=== PATIENT | male | born 1945 | race Caucasian/White ===

== ENCOUNTER 2022-11-24 01:21 | Emergency (ER) | payer OTHER, SELFPAY ==
[2022-11-24 01:25] VITALS: BP 154/100; PULSE 85; RESP 20; TEMP 36.8; O2SAT 95
--- NOTE | 2022-11-24 01:30 | DI.CT_ITS ---
Exam(s) CT HEAD WO EXAM: CT HEAD WO CLINICAL HISTORY: fall, on Eliquis. TECHNIQUE: Imaging Protocol: Axial computed tomography images with coronal and sagittal reformatted images were created and reviewed COMPARISON: CT HEAD WITHOUT CONTRAST from 01/05/2013 FINDINGS: Ventricles and Extra axial spaces: Normal in size and morphology for the patient's age. Hemorrhage: None. Cerebral parenchyma: There is no evidence of an acute territorial infarct. There are areas of decrea sed attenuation in the white matter most consistent with small vessel ischemic disease. Midline shift: None. Brainstem/Cerebellum: Normal. Calvarium: Normal. Visualized Paranasal sinuses/Mastoids: Clear. Soft Tissues: Unremarkable. IMPRESSION: No acute intracranial process. RADIATION DOSE DELIVERED: 739.61mGy.cm Total DLP DATA REPOSITORY: All CT scans at this facility are submitted to the National Radiology Data Registry (NRDR) Dose Index Registry (DIR) with the [employer] (ACR). RADIATION OPTIMIZATION: All CT scans at this facility use at least one of these dose optimization te chniques: automated exposure control; mA and/or kV adjustment per patient size (includes targeted exa ms where dose is matched to clinical indication); or iterative reconstruction.
--- NOTE | 2022-11-24 01:45 | W.ED.GENAD ---
Discharge Plan Disposition Patient Disposition: Home Condition: Good Discharge Details Clinical Impression: Fall Primary Care Provider: [facility] ED Provider: Markus Ludwig [place] Meds and New Rx's Prescriptions: No Action lisinopril 10 MG tablet 10 mg PO DAILY venlafaxine [Effexor XR] 75 MG capsule,extended release 24hr 225 mg PO DAILY tamsulosin 0.4 MG capsule 0.4 mg PO HS zolpidem 10 MG tablet 10 mg PO HS trazodone 100 MG tablet 100 mg HS oxycodone 5 MG tablet 5 mg PO DAILY methylphenidate HCl [Ritalin] 20 MG tablet 20 mg PO DAILY terazosin 2 MG capsule 2 mg PO HS valacyclovir 1,000 MG tablet 1,000 mg PO TID Qty: 21 0RF Rx Instructions: 1000 mg p.o. 3 times daily ?7 days Discharge Instructions Instructions: Fall Prevention for Older Adults (ED) HPI General Date/Time Provider Initiated Documentation: 11/24/22 01:35. HPI Narrative: 76 year old male with hx of HTN, HLD, on Eliquis for ?AF, presents to the ED after falling from a chair. he denies any head injury or LOC. No cp/sob/palpitations. Pt states tetanus within 5 years. Related Data Home Medications Medication Instructions Recorded Confirmed lisinopril 10 mg tablet 10 mg PO DAILY 10/19/12 06/05/17 tamsulosin 0.4 mg capsule 0.4 mg PO HS 10/19/12 06/05/17 venlafaxine 75 mg capsule,extended 225 mg PO DAILY 10/19/12 06/05/17 release 24 hr (Effexor XR) zolpidem 10 mg tablet 10 mg PO HS 10/19/12 06/05/17 trazodone 100 mg tablet 100 mg HS 08/09/13 06/05/17 oxycodone 5 mg tablet 5 mg PO DAILY 08/03/15 06/05/17 methylphenidate HCl 20 mg tablet 20 mg PO DAILY 09/03/16 06/05/17 (Ritalin) terazosin 2 mg capsule 2 mg PO HS 09/03/16 06/05/17 valacyclovir 1 gram tablet 1,000 mg PO TID ##21 06/05/17 Previous Rx's Medication Instructions Recorded valacyclovir 1 gram tablet 1,000 mg PO TID ##21 06/05/17 Allergies Allergy/AdvReac Type Severity Reaction Status Date / Time morphine AdvReac Unknown Psychosis Unverified 06/05/17 13:56 General Stated Complaint: Fall/Non TraumaCriteria HAROLDO: 4 Review of Systems Narrative: CONST: no fever or chills HEENT: no sore throat SKIN: no rashes PULM: no sob, no cough CARD: no cp, no palpitations ABD: no abd pain EXTR: no swelling NEURO: No focal weakness PFSH All Active Problems (Updated 11/24/22 @ 03:06 by Markus Ludwig MD) Fall (Acute) Social History Smoking/Tobacco Use Status: Current every day Smoking risk assessment performed?: Yes Alcohol Intake: never Drug use: Never Do you feel safe at home: Yes Do you feel safe in your relationship?: Yes Exam Narrative Exam Narrative: Const: well appearing, no acute distress HEENT: normocephalic, atraumatic; MMM Lungs: CTA, no wheezing or rales Heart: RRR Abd: soft, NT/ND Ext: well perfused Neuro: non-focal Skin: no rashes. R forearm with 2 small skin tears, each about 1-2 cm in size. Course PT with fall from chair, head CT neg. Will dc home, f/u with pcp as needed. Skin tears to arm just needs wound care and f/u. Vital Signs Vital signs: Vital Signs Temperature 36.8 C 11/24/22 01:25 Pulse 85 11/24/22 01:25 Respiratory Rate 20 11/24/22 01:25 Blood Pressure 154/100 H 11/24/22 01:25 Pulse Oximetry 95 11/24/22 01:25 Temperature 36.8 C 11/24/22 01:25 Temperature Source Oral 11/24/22 01:25 Pulse 85 11/24/22 01:25 Respiratory Rate 20 11/24/22 01:25 Respiratory Effort Normal, Non-Labored 11/24/22 01:37 Blood Pressure 154/100 H 11/24/22 01:25 Blood Pressure Position Sitting 11/24/22 01:25 Pulse Oximetry 95 11/24/22 01:25 Oxygen Delivery Method Room Air 11/24/22 01:25 Oxygen Flow Rate 0 11/24/22 01:25 Pain Level 10 11/24/22 01:25 Comment Chronic back pain 11/24/22 01:25
--- NOTE | 2022-11-24 03:01 | DI.VRAD_ITS ---
PROCEDURE INFORMATION: Exam: CT Head Without Contrast Exam date and time: 11/24/2022 1:51 AM Age: 76 years old Clinical indication: Injury or trauma; Other: Fall, on eliquis TECHNIQUE: Imaging protocol: Computed tomography of the head without contrast. COMPARISON: No relevant prior studies available. FINDINGS: Brain: No intracranial hemorrhage. Mild scattered white matter hypoattenuation. No midline shift. Cerebral ventricles: No ventriculomegaly. Paranasal sinuses: Visualized sinuses are unremarkable. No fluid levels. Mastoid air cells: Visualized mastoid air cells are well aerated. Bones/joints: Unremarkable. No acute fracture. Soft tissues: Unremarkable. Vasculature: Distal carotid and vertebral arterial calcifications noted. IMPRESSION: Negative for intracranial hemorrhage or other acute intracranial abnormality. Dictated and Authenticated by: Don Greco MD. Ordering:JEWELL Aparicio MD
== END 2022-11-24 03:20 | disposition home or self-care (01) ==
PROVIDERS: Emergency Provider Emergency Medicine
DX: Z71.1 Person with feared health complaint in whom no diagnosis is made (principal); W19.XXXA Unspecified fall, initial encounter
CPT/HCPCS: 99284; 70450; 99283

== ENCOUNTER 2022-12-27 03:43 | Emergency (ER) | payer OTHER, SELFPAY ==
[2022-12-27] VITALS (58 sets, daily range): BP systolic 138–152; BP diastolic 74–96; PULSE 64–102; RESP 10–27; TEMP 36.6; O2SAT 77–100
--- NOTE | 2022-12-27 03:30 | RT.EKG_ITS ---
APPROVED REPORT Exam: Resting ECG Reason for Exam: Fall Patient Location: E HR:86 bpm ECG Measurements Heart Rate 86 AXIS MS [id number] P [id number] QRSd 91 QRS 31 QT 370 T 39 QTc 444 Conclusion Atrial fibrillation...V-rate 72-105, irreg A-activity Anterior infarct, old...Q >40mS, abnormal ST-T, V2-V5
--- NOTE | 2022-12-27 03:48 | ED.GENADUL_ITS ---
Discharge Plan Disposition Patient Disposition: Home Condition: Improving Discharge Details Clinical Impression: Head contusion Primary Care Provider: Unknown,Unknown ED Provider: Gagandeep Newton Meds and New Rx's Prescriptions: Continued lisinopril 10 MG tablet 10 mg PO DAILY venlafaxine [Effexor XR] 75 MG capsule,extended release 24hr 225 mg PO DAILY tamsulosin 0.4 MG capsule 0.4 mg PO HS zolpidem 10 MG tablet 10 mg PO HS trazodone 100 MG tablet 100 mg HS oxycodone 5 MG tablet 5 mg PO DAILY methylphenidate HCl [Ritalin] 20 MG tablet 20 mg PO DAILY terazosin 2 MG capsule 2 mg PO HS valacyclovir 1,000 MG tablet 1,000 mg PO TID Qty: 21 0RF Rx Instructions: 1000 mg p.o. 3 times daily ?7 days Discharge Instructions Instructions: Contusion in Adults (ED) Discharge Data Discharge Physician: Gagandeep Newton Medical Decision Making MDM: Summary: Patient tripped and fell sustaining trauma to his head who takes Eliquis for atrial fibrillation who tripped and fell sustaining trauma to his head, labs were done and unremarkable CT scan of the head and cervical spine were negative he is able to ambulate and will be discharged home. Data Review Analysis All the data on this patient was reviewed by me including laboratory and imaging studies as well as bedside studies performed by me Independent review of Studies CT scan of the cervical spine and head are negative Lab: Risk Stratification: Patient on Eliquis with a negative CT head with no acute ambulate and will be discharged Differential Diagnosis: 1. Head contusion 2. Intracranial bleed 3. 4. 5. Consultants: Shared disposition: Patient will be discharged home with his he has an [facility] Impression: Medical Records Medical records reviewed: Yes I reviewed the patient's medical records. Lab Data Lab results reviewed: Yes I reviewed the patient's lab results. ECG Data Attestation: I personally reviewed and interpreted this ECG (s) as follows: Prior ECG tracings: available for review Interpretation: Heart rate 72 atrial fibrillation no acute [address]-T changes HPI General Date/Time Provider Initiated Documentation: 12/27/22 03:47 . HPI Narrative: Patient presents emergency department he had 2 he got up to go to the bathroom and fell sustaining trauma to his head. He came by ambulance with cervical collar immobilization. Denies any neck pain and denies any loss of consciousness but he does take apixaban for atrial fibrillation. Related Data Home Medications Medication Instructions Recorded Confirmed lisinopril 10 mg tablet 10 mg PO DAILY 10/19/12 06/05/17 tamsulosin 0.4 mg capsule 0.4 mg PO HS 10/19/12 06/05/17 venlafaxine 75 mg capsule,extended 225 mg PO DAILY 10/19/12 06/05/17 release 24 hr (Effexor XR) zolpidem 10 mg tablet 10 mg PO HS 10/19/12 06/05/17 trazodone 100 mg tablet 100 mg HS 08/09/13 06/05/17 oxycodone 5 mg tablet 5 mg PO DAILY 08/03/15 06/05/17 methylphenidate HCl 20 mg tablet 20 mg PO DAILY 09/03/16 06/05/17 (Ritalin) terazosin 2 mg capsule 2 mg PO HS 09/03/16 06/05/17 valacyclovir 1 gram tablet 1,000 mg PO TID ##21 06/05/17 Previous Rx's Medication Instructions Recorded valacyclovir 1 gram tablet 1,000 mg PO TID ##21 06/05/17 Allergies Allergy/AdvReac Type Severity Reaction Status Date / Time morphine AdvReac Unknown Psychosis Unverified 06/05/17 13:56 General HAROLDO: 4 Review of Systems Narrative: review of Systems: Constitutional: No fevers, chills, sweats Eye: No recent visual problems ENT: No ear pain, nasal congestion, sore throat Respiratory: No shortness of breath, cough Cardiovascular: No Chest pain, palpitations, syncope Gastrointestinal: No nausea, vomiting, diarrhea Genitourinary: No hematuria Reza/Lymph: Negative for bruising tendency, swollen lymph glands Endocrine: Negative for excessive thirst, excessive hunger Musculoskeletal: No back pain, neck pain, joint pain, muscle pain, decreased range of motion Integumentary: No rash, pruritus, abrasions Neurologic: Alert & oriented X 4 Psychiatric: No anxiety, depression PFSH All Active Problems (Updated 12/27/22 @ 05:50 by Gagandeep Newton MD) Head contusion (Acute) Social History Smoking/Tobacco Use Status: Current every day Smoking risk assessment performed?: Yes Alcohol Intake: never Drug use: Never Housing: house Do you feel safe at home: Yes Do you feel safe in your relationship?: Yes Exam Narrative Exam Narrative: Exam; vitals signs as reported above Constitutional; In no acute distress, afebrile General: cooperative, healthy appearing, comfortable and no acute distress HEENT: Head: normal to inspection, no palpable skull fracture and normocephalic Eyes: l: appearance normal, both eyes and all related structures ]Pupils: PERRL EOM: EOM intact bilaterally Direct ophthalmoscopy: normal light reflex, normal conjunctiva, normal visual acuity Neck no JVD, supple Neck: normal visual inspection, full ROM and no lymphadenopathy Chest Chest: normal inspection of the chest Respiratory : normal respiratory effort and able to speak in complete sentences Cardio irregularly irregular rate and rhythm normal heart sounds S1 and S2 no murmurs, gallops, or rubs GI Inspection: normal to inspection, normal bowel sounds, soft, non tender, non distended, no organomegally Back/Spine/ no CVA tenderness Thoracic/Lumbar Spine: no tenderness or deformities Skin no rashes or lesions Neuro: patient alert and no meningeal signs, Cranial Nerves: CN's II-XI intact bilaterally, Cognition: normal cognition, Speech: speech normal, Gait: normal gait, Depp tendon reflexes normal 2+ Extremities, no edema, full range of motion, normal strength : normal with phimosis
--- NOTE | 2022-12-27 03:49 | DI.CT_ITS ---
Exam(s) CT HEAD CERVICAL SPINE WO EXAM: CT HEAD CERVICAL SPINE WO CLINICAL HISTORY: trauma. TECHNIQUE: Imaging Protocol: Axial computed tomography images with coronal and sagittal reformatted images were created and reviewed COMPARISON: CT CT HEAD WO from 11/24/2022 FINDINGS: BRAIN: Motion artifact. There is a high left scalp hematoma. No subjacent fracture. There are no skull fractures nor fluid in the visualized paranasal sinuses. There is no evidence of intracranial hemorrhage, mass effect, or shift of midline structures. There are no extra-axial fluid collections. The ventricles are not enlarged or shifted and there is no blo od within the ventricular system nor within the basal cisterns. Periventricular hypodensity consistent with chronic small vessel disease again noted. CERVICAL SPINE: There is no evidence of fracture nor listhesis. No significant prevertebral soft tissue swelling. Multilevel chronic disc space narrowing. Mild degenerative changes in the facet joints. There is no significant facet joint malalignment. No significant osseous lesions evident. IMPRESSION: No acute intracranial findings on this noninfused CT scan of the brain. No evidence of cervical spine fracture, malalignment, nor acute compromise of the cervical spinal can al. Chronic degenerative disc disease-multifocal. RADIATION DOSE DELIVERED: 1,562.25mGy.cm Total DLP DATA REPOSITORY: All CT scans at this facility are submitted to the National Radiology Data Registry (NRDR) Dose Index Registry (DIR) with the [employer] (ACR). RADIATION OPTIMIZATION: All CT scans at this facility use at least one of these dose optimization te chniques: automated exposure control; mA and/or kV adjustment per patient size (includes targeted exa ms where dose is matched to clinical indication); or iterative reconstruction.
[2022-12-27 04:02] LABS: Abs Immature Grans 0.03 10^3/uL (0.0-0.06); Absolute Basophil Count 0.05 10^3/uL (0.0-0.2); Absolute Lymphocyte Count 2.05 10^3/uL (1.2-3.4); Absolute Monocyte Count 0.54 10^3/uL (0.1-0.8); Absolute Neutrophil Count 3.55 10^3/uL (1.2-6.7); Basophils % 0.8; HCT 30.9 % (40.0-50.0); HGB 10.2 g/dL (13.5-17.5); Immature Grans % 0.5; MCH 30.9 pg (27.0-33.0); MCV 94 fL (80-95); MPV 8.4 fL (8.0-11.0); Monocytes % 8.2; Neutrophils % 53.5; Platelet Count 223 10^3/uL (130-400); RDW 13.7 % (11.8-14.1); RDW-SD 46.6 fL; WBC 6.62 10^3/uL (4.4-10.8)
[2022-12-27 04:22] LABS: ALT 22 U/L (16-63); AST 26 U/L (15-37); Albumin 2.3 g/dL (3.4-5.0); Alkaline Phosphatase 100 U/L (46-116); Anion Gap 7.8 mmol/L (3-11); BUN 3 mg/dL (7-18); Bilirubin, Total 0.4 mg/dL (0.2-1.0); CO2 26.2 mmol/L (21.0-32.0); CREATININE 0.8 mg/dL (0.70-1.30); Calcium 7.9 mg/dL (8.5-10.1); Chloride 97 mmol/L (98-107); Estimated GFR 91.72 (mL/min/1.73m2); Glucose 93 mg/dL (74-106); Magnesium 1.4 mg/dL (1.8-2.4); Potassium 3.3 mmol/L (3.5-5.1); Sodium 131 mmol/L (136-145); Troponin I < 50 ng/L (<or=60)
[2022-12-27 04:32] LABS: Bilirubin Negative (Negative); Blood Negative (Negative); Clarity Clear (Clear); Glucose Negative (Negative); Ketones Negative (Negative); Leukocyte Esterase Trace (Negative); Nitrite Negative (Negative); Specific Gravity <= 1.005 (1.005-1.025); Urobilinogen 0.2 mg/dL (Up to 0.2)
[2022-12-27 04:46] LABS: Bacteria Rare HPF (Negative); C & S Indicated? Yes; Crystals Negative HPF (Negative); Epithelial Cells Rare HPF (Negative); Mucus Negative (Negative); RBC 0-2 HPF (0-2)
--- NOTE | 2022-12-27 04:56 | DI.VRAD_ITS ---
PROCEDURE INFORMATION: Exam: CT Head Without Contrast Exam date and time: 12/27/2022 4:32 AM Age: 77 years old Clinical indication: Injury or trauma; Fall; Blunt trauma (contusions or hematomas); Consciousness not specified TECHNIQUE: Imaging protocol: Computed tomography of the head without contrast. COMPARISON: CT HEAD WO 11/24/2022 1:51 AM FINDINGS: Brain: No acute intracranial hemorrhage, mass-effect, midline shift, or extra-axial collection is seen. There is patchy white matter hypoattenuation, nonspecific but commonly seen as a chronic sequela of small vessel ischemic disease. The rodas white matter differentiation appears preserved. There is symmetric parenchymal volume loss. Cerebral ventricles: The ventricular system and basilar cisterns appear appropriate in size and configuration. Paranasal sinuses: The paranasal sinuses appear well-aerated. Mastoid air cells: The mastoid air cells appear well-aerated. Auditory system: The middle ear cavities appear clear. Orbital cavities: The globes and intraorbital structures appear grossly intact. Bones/joints: The bony calvarium appears intact. No depressed skull fracture is seen. Soft tissues: There is a small left frontal scalp contusion. Vasculature: There is atherosclerotic calcification within the intracranial portion of the left vertebral artery and bilateral internal carotid arteries. IMPRESSION: 1. No acute intracranial hemorrhage or depressed skull fracture. 2. Presumed chronic microvascular ischemic change. 3. Symmetric parenchymal volume loss. PROCEDURE INFORMATION: Exam: CT Cervical Spine Without Contrast Exam date and time: 12/27/2022 4:32 AM Age: 77 years old Clinical indication: Injury or trauma; Fall; Blunt trauma (contusions or hematomas); Consciousness not specified TECHNIQUE: Imaging protocol: Computed tomography of the cervical spine without contrast. COMPARISON: CT HEAD WO 11/24/2022 1:51 AM FINDINGS: Bones/joints: No acute cervical fracture or gross vertebral malalignment is seen. There is a compression plate with screws transfixing an old left clavicle fracture. C2-C3: Loss of disc height with endplate irregularity. No significant cervical stenosis. Mild bilateral foraminal narrowing. C3-C4: Disc height relatively preserved. Mild central canal narrowing. Mild bilateral foraminal narrowing. C4-C5: C4-C5. Disc height preserved. Mild posterior osteophytic ridging with bilateral uncovertebral hypertrophy. No significant cervical stenosis. Moderate-severe bilateral foraminal narrowing. C5-C6: Loss of disc height with endplate irregularity and anterior osteophytes. Uncovertebral hypertrophy on the left. No significant central canal narrowing. Mild right-sided foraminal narrowing. Moderate left-sided foraminal narrowing. C6-C7: Loss of disc height with anterior osteophyte formation and posterior osteophytic ridging. No significant central canal narrowing. Moderate bilateral foraminal narrowing. C7-T1: Loss of disc height with endplate irregularity, anterior osteophyte formation, and posterior osteophytic ridging. No significant central canal narrowing. Moderate bilateral foraminal narrowing. Thyroid: The thyroid gland appears normal in size. Lungs: There is emphysema at the lung apices. Mild smooth thickening of the interlobular pulmonary septa at the lung apices suggests probable the mild interstitial pulmonary edema or volume overload. Vasculature: There is atherosclerotic calcification at the carotid bifurcations bilaterally. Soft tissues: Within the limits of the exam, no gross soft tissue fluid collection is seen in the neck. IMPRESSION: 1. No acute cervical fracture or malalignment is seen. 2. Degenerative changes, as detailed level by level above. Dictated and Authenticated by: Tommie Tirado MD. Ordering:MAURICIO Donis MD
--- NOTE | 2022-12-27 11:09 | NUR.NOTE ---
duplicate order Nursing Note:
== END 2022-12-27 06:03 | disposition home or self-care (01) ==
PROVIDERS: Emergency Provider Emergency Medicine Emergency Medical Services
DX: S00.81XA Abrasion of other part of head, initial encounter (principal); I48.91 Unspecified atrial fibrillation; F17.210 Nicotine dependence, cigarettes, uncomplicated; W01.0XXA Fall on same level from slipping, tripping and stumbling without subsequent striking against object, initial encounter; Y93.01 Activity, walking, marching and hiking; Y92.018 Other place in single-family (private) house as the place of occurrence of the external cause; Y99.9 Unspecified external cause status
CPT/HCPCS: 36415; 80053; 93005; 99284; 70450; 72125; 81003; 81015; 83735; 84484; 85025; 87086; 93010; 99283

== ENCOUNTER 2023-04-21 18:18 | Emergency (ER) | payer OTHER, SELFPAY ==
[2023-04-21 18:21] VITALS: BP 167/78; PULSE 95; RESP 22; TEMP 37.5; O2SAT 98
--- OUTSIDE RECORDS SUMMARY | 2023-04-21 18:46 | XMS_ITS | Continuity of Care Document ---
Author Name Unknown Organization [facility] Address [address] [place] [address] Care Team Providers Care Costumer Assistant Name Role Phone Camelia Phillip MD Primary Care Physician Encounter [facility] NBR [id number] Date(s): 07/08/22 - 07/08/22 [facility] [address] [place], [place] [address] Encounter Diagnosis Head injury(Discharge Diagnosis) - 07/08/22 Chest wall contusion(Discharge Diagnosis) - 07/08/22 Fall at home(Discharge Diagnosis) - 07/08/[address] in unspecified non-institutional (private) residence as the place of occurrence of the external cause(Discharge Diagnosis) - 07/08/22 Discharge Disposition: Home or Self Care Attending Physician: Johan Lerner MD Admitting Physician: Johan Lerner MD Allergies, Adverse Reactions, Alerts Substance Reaction Severity Status morphine Unknown Active fluticasone unknown Unknown Active gabapentin unknown Unknown Active pregabalin unknown Unknown Active oxyCODONE Unknown Unknown Active Assessment and Plan Future Appointments Future Scheduled Tests Radiology* US Abdomen Limited 05/24/22 Functional Status 07/08/22 Other exposure to Infectious Disease Non e Medications Ambien 5 mg =, Oral, every night at bedtime, PRN as needed, 0 Refill(s) Start Date: 04/20/22 Status: Ordered atorvastatin 10 mg oral tablet 10 mg = 1 tab, Oral, Daily, 0 Refill(s) Start Date: 05/11/22 Status: Ordered diclofenac 3% topical gel 1 %, Topical, 0 Refill(s) Start Date: 05/11/22 Status: Ordered Durable Medical Equipment Supply, See instructions, # 1 EA, 0 Refill(s) Start Date: 05/11/22 Status: Ordered Eliquis 5 mg oral tablet 5 mg = 1 tab, Oral, BID, MD appt 05/12/22, # 60 tab, 3 Refill(s), Pharmacy: [facility], 162.56, cm, 04/20/22 16:47:00 EDT, Height/Length Dosing, 79.38, kg, 04/20/22 16:47:00 EDT, Weight Dosing Start Date: 04/26/22 Status: Ordered furosemide 20 mg oral tablet 20 mg = 1 tab, Oral, Daily, # 30 tab, 0 Refill(s) Start Date: 05/11/22 Status: Ordered ipratropium-albuterol CFC free 20 mcg-100 mcg/inh inhalation aerosol 0 Refill(s) Start Date: 05/11/22 Status: Ordered lisinopril 2.5 mg oral tablet 2.5 mg = 1 tab, Oral, Daily, # 30 tab, 0 Refill(s) Start Date: 05/11/22 Status: Ordered metoprolol succinate 50 mg oral capsule, extended release 50 mg = 1 cap, Oral, Daily, # 90 cap, 3 Refill(s), Pharmacy: [facility], 162.56, cm, 04/20/22 16:47:00 EDT, Height/Length Dosing, 79.38, kg, 04/20/22 16:47:00 EDT, Weight Dosing Start Date: 04/26/22 Status: Ordered multivitamin adult, oral tablet 1 Unknown, 0 Refill(s) Start Date: 05/11/22 Status: Ordered nitroglycerin 0.4 mg sublingual tablet 0 Refill(s) Start Date: 04/20/22 Status: Ordered omeprazole 20 mg oral delayed release tablet 20 mg =, Oral, BID, take it 30 minutes before morning meal ., # 180 tab, 3 Refill(s), Pharmacy: [id number], 162.56, cm, 04/20/22 16:47:00 EDT, Height/Length Dosing, 79.38, kg, 04/20/22 16:47:00EDT, Weight Dosing Start Date: 05/19/22 Stop Date: 05/14/23 Status: Ordered oxyCODONE 5 mg oral tablet See Instructions, take 2 tabs by mouth every morning, then take 1 tab in the afternoon, and then 2 tabs every evening for pain, # 150 tab, 0 Refill(s), Pharmacy: [id number], 162.56, cm, 04/20/22 16:47:00 EDT, Height/Length Dosing, 79.38, kg, .. Start Date: 06/25/22 Status: Ordered simvastatin 20 mg oral tablet 20 mg = 1 tab, Oral, every night at bedtime, # 90 tab, 3 Refill(s), Pharmacy: [facility], 162.56, cm, 04/20/22 16:47:00 EDT, Height/Length Dosing, 79.38, kg, 04/20/22 16:47:00EDT, Weight Dosing Start Date: 04/26/22 Status: Ordered terazosin 2 mg =, Daily, 0 Refill(s) Start Date: 04/20/22 Status: Ordered traZODone 50 mg oral tablet 50 mg = 1 tab, Oral, Daily, # 90 tab, 0 Refill(s), Pharmacy: [id number], 162.56, cm, 04/20/2216:47:00 EDT, Height/Length Dosing, 79.38, kg, 04/20/22 16:47:00 EDT, Weight Dosing Start Date: 06/15/22 Status: Ordered venlafaxine 37.5 mg =, 0 Refill(s) Start Date: 04/20/22 Status: Ordered zinc oxide topical ointment 20 %, Topical, 0 Refill(s) Start Date: 05/11/22 Status: Ordered Mental Status 07/08/22 Eye Opening Response [place] Spontaneous ly Best Verbal Response [place] Oriented Best Motor Response [place] Obeys comman ds Gracie Coma Score 15 Problem List Condition Confirmation Course Effective Dates Status H ealth Status Informant Adrenal mass Confirmed Active Anemia Confirmed Active Atrial fibrillation Confirmed Active Benign prostatic hyperplasia Confirmed Active Body mass index 30+ - obesity Confirmed Active Cervical spondylosis Confirmed Active Chronic low back pain Confirmed Active Closed fracture of left orbital floor Confirmed Active Chest wall contusion Confirmed Active Essential hypertension Confirmed Active Fall at home Confirmed Active Gastroesophageal reflux disease Confirmed Active History of operative procedure on knee Confirmed Active Head injury Confirmed Active Insomnia Confirmed Active Lumbago co-occurrent with right-side sciatica Confirmed Active Lumbar spondylosis Confirmed Active Mixed hyperlipidemia Confirmed Active Multiple joint pain Confirmed Active Neck pain Confirmed Active Osteoarthritis of knee Confirmed Active Posttraumatic stress disorder Confirmed Active Prescribed medication regimen behavior finding Confirmed Active Serum albumin below reference range Confirmed Active Smoker Confirmed Active Procedures Procedure Date Related Diagnosis Body Site Status Excision of right adrenal gland 1 Completed 1right adreanal gland removed. Results Laboratory List Name Date Basic Metabolic Panel (BMP) 07/08/22 CBC w/ Diff 07/08/22 Creatine Kinase 07/08/22 PT/ INR 07/08/22 Automated Diff 07/08/22 Most recent to oldest [Reference Range]: 1 WBC [4.8-10.8 K/mcL] 8.2 K/mcL (07/08/22 4:44 PM) RBC [4.20-6.10 Million/mcL] 3.42 Million /mcL *LOW* (07/08/22 4:44 PM) Neutro Auto [42.2-75.2 %] 62.1 % (07/08/22 4:44 PM) Lymph Auto [20.5-51.1 %] 25.4 % (07/08/22 4:44 PM) [place] Auto [1.7-9.3 %] 7.8 % (07/08/22 4:44 PM) Basophil Auto [0.0-0.8 %] 0.7 % (07/08/22 4:44 PM) Prothrombin Time [9.1-10.6 seconds] 11.6 seconds *HI* (07/08/22 4:44 PM) INR [0.9-1.1] 1.2 *HI* (07/08/22 4:44 PM) BUN [8-26 mg/dL] 19 mg/dL (07/08/22 4:44 PM) Glucose Level [74-106 mg/dL] 104 mg/dL (07/08/22 4:44 PM) Potassium Level [3.5-5.1 mmol/L] 4.1 mmo l/L (07/08/22 4:44 PM) Baso Absolute [0.0-0.2 K/mcL] 0.1 K/mcL (07/08/22 4:44 PM) MCV [80.0-99.0 fL] 95.3 fL (07/08/22 4:44 PM) MCHC [32.0-36.0 g/dL] 32.2 g/dL (07/08/22 4:44 PM) Osmolality [275-295 mOsm/kg] 262 mOsm/kg *LOW* (07/08/22 4:44 PM) Sodium Level [134-143 mmol/L] 129 mmol/L *LOW* (07/08/22 4:44 PM) Lymph Absolute [1.2-3.4 K/mcL] 2.1 K/mcL (07/08/22 4:44 PM) Hct [37.0-52.0 %] 32.6 % *LOW* (07/08/22 4:44 PM) Calcium Level [8.9-10.3 mg/dL] 8.5 mg/dL *LOW* (07/08/22 4:44 PM) [place] Absolute [0.1-0.6 K/mcL] 0.6 K/mcL (07/08/22 4:44 PM) MCH [27.0-31.0 pg] 30.7 pg (07/08/22 4:44 PM) Neutro Absolute [1.4-6.5 K/mcL] 5.1 K/mc L (07/08/22 4:44 PM) Hgb [12.0-18.0 g/dL] 10.5 g/dL *LOW* (07/08/22 4:44 PM) MPV [7.4-10.4 fL] 8.4 fL (07/08/22 4:44 PM) Platelets [130-400 K/mcL] 259 K/mcL (07/08/22 4:44 PM) CO2 [22-32 mmol/L] 26 mmol/L (07/08/22 4:44 PM) Eos Absolute [0.0-0.2 K/mcL] 0.3 K/mcL *HI* (07/08/22 4:44 PM) Chloride Level [98-111 mmol/L] 95 mmol/L *LOW* (07/08/22 4:44 PM) RDW-CV [11.5-14.5 %] 14.3 % (07/08/22 4:44 PM) BUN/Creat Ratio [8.0-20.0] 19.6 (07/08/22 4:44 PM) Imm Gran Absolute 0.02 *NA* (07/08/22 4:44 PM) Imm Gran Auto [0.0-0.5 %] 0.2 % (07/08/22 4:44 PM) Creatinine Level [0.61-1.24 mg/dL] 0.97 mg/dL (07/08/22 4:44 PM) Anion Gap [3.0-12.0] 8.0 (07/08/22 4:44 PM) Eos, Auto [0.00-3.00 %] 3.80 % *HI* (07/08/22 4:44 PM) eGFR CKD-EPI [>=60 mL/min/1.73 m2] 81 mL /min/1.73 m2 (07/08/22 4:44 PM) CK [49-397 unit/L] 160 unit/L (07/08/22 4:44 PM) Radiology Reports * Exam Date Time Procedure Performing Provider Status 07/08/22 5:[address] Chest w/ Contrast Samreen Montgomery ; Auth (Verified) Notes: (CT Chest w/ Contrast) Reason For Exam: Trauma CT Chest w/ Contrast PROCEDURE INFORMATION: Exam: CT Chest With Contrast; Diagnostic Exam date and time: 07/08/2022 5:05 PM Age: 76 years old Clinical indication: Injury; Fall; Blunt trauma; Injury date: 07/08/22 TECHNIQUE: Imaging protocol: Diagnostic computed tomography of the chest with contrast. Radiation optimization: All CT scans at this facility use at least one of these dose optimization techniques: automated exposure control; mA and/or kV adjustment per patient size (includes targeted exams where dose is matched to clinical indication); or iterative reconstruction. Contrast material: ISOVUE 370; Contrast volume: 100 ml; Contrast route: INTRAVENOUS (IV); COMPARISON: CT SPINE CERVICAL WO CONTRAST 07/08/2022 4:59 PM FINDINGS: Lungs: No lung contusion. No consolidation. Pleural spaces: No pneumothorax. No pleural effusion. Heart: Heart size within normal limits. Coronary artery and mitral valve annulus calcification. Lymph nodes: No enlarged lymph nodes. Vasculature: Unremarkable. No aortic aneurysm. Bones/joints: No acute fracture. Spinal degenerative changes. Old fractures of the right 7th through 9th lateral ribs. Likely old fracture involving the right acromial region. Prior ORIF left clavicle. Old fractures of the left 4th through 7th anterolateral ribs. Right shoulder joint effusion with right shoulder region soft tissue calcifications. Soft tissues: Unremarkable. IMPRESSION: 1. No acute fracture. 2. Old fractures of the right 7th through 9th lateral ribs. Likely old fracture involving the right acromial region. Prior ORIF left clavicle. Old fractures of the left 4th through 7th anterolateral ribs. 3. Right shoulder joint effusion with right shoulder region soft tissue calcifications. 4. No acute intrathoracic findings. THIS DOCUMENT HAS BEEN ELECTRONICALLY SIGNED BY SRINIVAS GALVAN MD on 07/08/2022 06:18 PM Final Signed by: Srinivas Galvan MD Signed (Electronic Signature): 07/08/2022 6:18 pm * Exam Date Time Procedure Performing Provider Status 07/08/22 5:[address] Abdomen and Pelvis w/ Contrast Samreen Jackson od; Amairani (Verified) Notes: (CT Abdomen and Pelvis w/ Contrast) Reason For Exam: Trauma CT Abdomen and Pelvis w/ Contrast PROCEDURE INFORMATION: Exam: CT Abdomen And Pelvis With Contrast Exam date and time: 07/08/2022 5:05 PM Age: 76 years old Clinical indication: Injury; Fall; Blunt trauma; Injury date: 07/08/22 TECHNIQUE: Imaging protocol: Computed tomography of the abdomen and pelvis with contrast. Radiation optimization: All CT scans at this facility use at least one of these dose optimization techniques: automated exposure control; mA and/or kV adjustment per patient size (includes targeted exams where dose is matched to clinical indication); or iterative reconstruction. Contrast material: 370; Contrast volume: 100 ml; Contrast route: INTRAVENOUS (IV); COMPARISON: MR ABDOMEN WO CONTRAST 02/25/2022 3:08 PM FINDINGS: Liver: Normal. No mass. Gallbladder and bile ducts: Normal. No calcified stones. No ductal dilation. Pancreas: Normal. No ductal dilation. Spleen: Normal. No splenomegaly. Adrenal glands: Likely prior adrenalectomy. Compared to prior MR abdomen dated , no interval change in left adrenal adenoma. Kidneys and ureters: No hydronephrosis. No calcified renal or ureteral stones. No perinephric stranding or perinephric fluid. Stomach and bowel: No generalized ileus or bowel obstruction. Scattered sigmoid the colon diverticuli without evidence of diverticulitis. Appendix: No evidence of appendicitis. Intraperitoneal space: No free air. No significant fluid collection. Vasculature: Unremarkable. No abdominal aortic aneurysm. Lymph nodes: No enlarged lymph nodes. Urinary bladder: Unremarkable as visualized. Reproductive: Unremarkable as visualized. Bones/joints: Spinal degenerative changes. Old right-sided rib fractures. No acute fracture. Soft tissues: Areas of subcutaneous soft tissue edema. IMPRESSION: 1. No acute fracture. 2. No acute intra-abdominal or pelvic process. 3. Scattered sigmoid the colon diverticuli without evidence of diverticulitis. THIS DOCUMENT HAS BEEN ELECTRONICALLY SIGNED BY SRINIVAS GALVAN MD on 07/08/2022 06:25 PM Final Signed by: Srinivas Galvan MD Signed (Electronic Signature): 07/08/2022 6:25 pm * Exam Date Time Procedure Performing Provider Status 07/08/22 5:[address] Maxillofacial w/o Contrast Samreen Montgomery; Amairani (Verified) Notes: (CT Maxillofacial w/o Contrast) Reason For Exam: trauma CT Maxillofacial w/o Contrast PROCEDURE INFORMATION: Exam: CT Maxillofacial Without Contrast Exam date and time: 07/08/2022 4:59 PM Age: 76 years old Clinical indication: Injury or trauma; Fall; Blunt trauma (contusions or hematomas); Injury date: 07/08/22 TECHNIQUE: Imaging protocol: Computed tomography of the face without contrast. Radiation optimization: All CT scans at this facility use at least one of these dose optimization techniques: automated exposure control; mA and/or kV adjustment per patient size (includes targeted exams where dose is matched to clinical indication); or iterative reconstruction. COMPARISON: Prior facial bone CT of 10/19/2021 FINDINGS: Orbital cavities: No acute abnormality. No evidence of orbital emphysema or retrobulbar hemorrhage. Bones/joints: Mildly depressed fracture of the right orbital floor, image 18/87, which is chronic, seen also on the prior CT. No acute fractures seen. Remaining visualized bony structures appear intact. No evidence of acute dislocation. Paranasal sinuses: Visualized paranasal sinuses are clear. No air-fluid levels. Soft tissues: Left periorbital soft tissue swelling. IMPRESSION: 1. No acute facial bone fractures. 2. Old fracture of the right orbital floor. 3. See above for remaining findings. THIS DOCUMENT HAS BEEN ELECTRONICALLY SIGNED BY CRAOLINE MANNING MD on 07/08/2022 05:54 PM Final Signed by: Caroline Manning MD Signed (Electronic Signature): 07/08/2022 5:54 pm * Exam Date Time Procedure Performing Provider Status 07/08/22 5:[address] Spine Cervical w/o Contrast Samreen Montgomery; Auth (Verified) Notes: (CT Spine Cervical w/o Contrast) Reason For Exam: Trauma CT Spine Cervical w/o Contrast PROCEDURE INFORMATION: Exam: CT Cervical Spine Without Contrast Exam date and time: 07/08/2022 4:59 PM Age: 76 years old Clinical indication: Injury or trauma; Fall; Unconscious; Injury date: 07/08/22 TECHNIQUE: Imaging protocol: Computed tomography of the cervical spine without contrast. Radiation optimization: All CT scans at this facility use at least one of these dose optimization techniques: automated exposure control; mA and/or kV adjustment per patient size (includes targeted exams where dose is matched to clinical indication); or iterative reconstruction. COMPARISON: None is available. FINDINGS: Limitations: Streak artifact from metallic hardware. Bones/joints: Metallic hardware in the left clavicle, related to surgical fixation of an old fracture. Multilevel degenerative disc disease, mainly involving the C5-C6 through C7-T1 levels, where there is moderate to severe degenerative disc disease. Degenerative changes at the atlantoaxial articulation. No acute cervical spine fractures visualized. No significant vertebral subluxation. No evidence of acute facet dislocation. Lungs: Moderate emphysema noted in the imaged lung apices. Pleural spaces: No apical pneumothorax seen. Soft tissues: No acute abnormality. Multiple chronic, corticated bony densities in the soft tissues abutting both clavicles, likely related to remote traumatic injury. IMPRESSION: 1. No acute cervical spine fractures. 2. Emphysema incidentally noted. 3. See above for remaining chronic and/or incidental findings. THIS DOCUMENT HAS BEEN ELECTRONICALLY SIGNED BY CAROLINE MANNING MD on 07/08/2022 06:03 PM Final Signed by: Caroline Manning MD Signed (Electronic Signature): 07/08/2022 6:03 pm * Exam Date Time Procedure Performing Provider Status 07/08/22 5:[address] Head w/o Contrast Samreen Montgomery ; Auth (Verified) Notes: (CT Head w/o Contrast) Reason For Exam: Trauma CT Head w/o Contrast PROCEDURE INFORMATION: Exam: CT Head Without Contrast Exam date and time: 07/08/2022 4:59 PM Age: 76 years old Clinical indication: Injury or trauma; Fall; Unconscious; Injury date: 07/08/22 TECHNIQUE: Imaging protocol: Computed tomography of the head without contrast. Radiation optimization: All CT scans at this facility use at least one of these dose optimization techniques: automated exposure control; mA and/or kV adjustment per patient size (includes targeted exams where dose is matched to clinical indication); or iterative reconstruction. COMPARISON: Prior head CT of 10/19/2021 FINDINGS: Brain: Small area of low density in the left frontal white matter, most likely secondary to chronic small vessel ischemic change. No significant acute abnormality identified. No acute hemorrhage seen within the brain. No acute extra-axial fluid collections visualized. No evidence of significant mass effect within the brain. Cerebral ventricles: No evidence of significant hydrocephalus. Paranasal sinuses: Visualized sinuses are clear. No fluid levels. Mastoid air cells: Clear visualized mastoid air cells. Bones/joints: No acute abnormality. No acute fractures. Soft tissues: Left periorbital soft tissue swelling. IMPRESSION: 1. No evidence of acute intracranial injury or fractures. 2. See above for remaining chronic and/or incidental findings. THIS DOCUMENT HAS BEEN ELECTRONICALLY SIGNED BY CAROLINE MANNING MD on 07/08/2022 06:11 PM Final Signed by: Caroline Manning MD Signed (Electronic Signature): 07/08/2022 6:11 pm Vital Signs Most recent to oldest [Reference Range]: 1 Temperature Temporal Artery [36-38 Deg C ] 37 Deg C (07/08/22 3:50 PM) Peripheral Pulse Rate [60-100 bpm] 72 bp m (07/08/22 3:50 PM) Respiratory Rate [12-24 br/min] 16 br/mi n (07/08/22 3:50 PM) Blood Pressure [90-140/60-90 mmHg] 129/7 0mmHg (07/08/22 3:50 PM) Weight Dosing 71.67 kg (07/08/22 4:32 PM) Weight Estimated 71.67 kg (07/08/22 3:50 PM) Height/Length Dosing 165.000 cm (07/08/22 4:32 PM) Height/Length Estimated 165.000 cm (07/08/22 3:50 PM) Social History Social History Type Response Tobacco Current everyday tob acco user Tobacco Use:. 1.5 packs a day per day. Sex Hospital Discharge Instructions Patient Education 07/08/2022 17:13:11 Head Injury, Adult Head Injury, Adult There are many types of head injuries. Head injuries can be as minor as a small bump, or they can be a serious medical issue. More severe head injuries include: ??? A jarring injury to the brain (concussion). ??? A bruise (contusion) of the brain. This means there is bleeding in the brain that can cause swelling. ??? A cracked skull (skull fracture). ??? Bleeding in the brain that collects, clots, and forms a bump (hematoma). After a head injury, most problems occur within the first 24 hours, but side effects may occur up to 7???10 days after the injury. It is important to watch your condition for any changes. You may need to be observed in the emergency department or urgent care, or you may be admitted to the hospital. What are the causes? There are many possible causes of a head injury. Serious head injuries may be caused by car accidents, bicycle or motorcycle accidents, sports injuries, falls, or being struck by an object. What are the symptoms? Symptoms of a head injury include a contusion, bump, or bleeding at the site of the injury. Other physical symptoms may include: ??? Headache. ??? Nausea or vomiting. ??? Dizziness. ??? Blurred or double vision. ??? Being uncomfortable around bright lights or loud noises. ??? Seizures. ??? Feeling tired. ??? Trouble being awakened. ??? Loss of consciousness. Mental or emotional symptoms may include: ??? Irritability. ??? Confusion and memory problems. ??? Poor attention and concentration. ??? Changes in eating or sleeping habits. ??? Anxiety or depression. How is this diagnosed? This condition can usually be diagnosed based on your symptoms, a description of the injury, and a physical exam. You may also have imaging tests done, such as a CT scan or an MRI. How is this treated? Treatment for this condition depends on the severity and type of injury you have. The main goal of treatment is to prevent complications and allow the brain time to heal. Mild head injury If you have a mild head injury, you may be sent home, and treatment may include: ??? Observation. A responsible adult should stay with you for 24 hours after your injury and check on you often. ??? Physical rest. ??? Brain rest. ??? Pain medicines. Severe head injury If you have a severe head injury, treatment may include: ??? Close observation. This includes hospitalization with the following care: ??? Frequent physical exams. ??? Frequent checks of how your brain and nervous system are working (neurological status). ??? Checking your blood pressure and oxygen levels. ??? Medicines to relieve pain, prevent seizures, and decrease brain swelling. ??? Airway protection and breathing support. This may include using a ventilator. ??? Treatments that monitor and manage swelling inside the brain. ??? Brain surgery. This may be needed to: ??? Remove a collection of blood or blood clots. ??? Stop the bleeding. ??? Remove a part of the skull to allow room for the brain to swell. Follow these instructions at home: Activity ??? Rest and avoid activities that are physically hard or tiring. ??? Make sure you get enough sleep. ??? Let your brain rest by limiting activities that require a lot of thought or attention, such as: ??? Watching TV. ??? Playing memory games and puzzles. ??? Job-related work or homework. ??? Working on the computer, using social media, and texting. ??? Avoid activities that could cause another head injury, such as playing sports, until your health care provider approves. Having another head injury, especially before the first one has healed, can be dangerous. ??? Ask your health care provider when it is safe for you to return to your regular activities, including work or school. Ask your health care provider for a [id number]-ic-[id number] plan for gradually returningto activities. ??? Ask your health care provider when you can drive, ride a bicycle, or use heavy machinery. Your ability to react may be slower after a brain injury. Do not do these activities if you are dizzy. Lifestyle ??? Do not drink alcohol until your health care provider approves. Do not use drugs. Alcohol and certain drugs may slow your recovery and can put you at risk of further injury. ??? If it is harder than usual to remember things, write them down. ??? If you are easily distracted, try to do one thing at a time. ??? Talk with family members or close friends when making important decisions. ??? Tell your friends, family, a trusted colleague, and network associate about your injury, symptoms, and restrictions. Have them watch for any new or worsening problems. General instructions ??? Take [id number]-ire-blyishc and prescription medicines only as told by your health care provider. ??? Have someone stay with you for 24 hours after your head injury. This person should watch you for any changes in your symptoms and be ready to seek medical help. ??? Keep all follow-up visits as told by your health care provider. This is important. How is this prevented? Work on improving your balance and strength to avoid falls. ??? Wear a seat belt when you are in a moving vehicle. ??? Wear a helmet when riding a bicycle, skiing, or doing any other sport or activity that has a risk of injury. ??? If you drink alcohol: ??? Limit how much you use to: ??? 0???1 drink a day for non women. ??? 0???2 drinks a day for men. ??? Be aware of how much alcohol is in your drink. In the [place] one drink equals one 12 oz bottle of beer (355 mL), one 5 oz glass of wine (148 mL), or one 1?? oz glass of hard liquor (44 mL). ??? Take safety measures in your home, such as: ??? Removing clutter and tripping hazards from floors and stairways. ??? Using grab bars in bathrooms and handrails by stairs. ??? Placing non-slip mats on floors and in bathtubs. ??? Improving lighting in dim areas. Where to find more information ??? Centers for Disease Control and Prevention: www.cdc.gov Get help right away if: ??? You have: ??? A severe headache that is not helped by medicine. ??? Trouble walking or weakness in your arms and legs. ??? Clear or bloody fluid coming from your nose or ears. ??? Changes in your vision. ??? A seizure. ??? Increased confusion or irritability. ??? Your symptoms get worse. ??? You are sleepier than normal and have trouble staying awake. ??? You lose your balance. ??? Your pupils change size. ??? Your speech is slurred. ??? Your dizziness gets worse. ??? You vomit. These symptoms may represent a serious problem that is an emergency. Do not wait to see if the symptoms will go away. Get medical help right away. Call your local emergency services (911 in the [place] Do not drive yourself to the hospital. Summary ??? Head injuries can be minor, or they can be a serious medical issue requiring immediate attention. ??? Treatment for this condition depends on the severity and type of injury you have. ??? Have someone stay with you for 24 hours after your injury and check on you often. ??? Ask your health care provider when it is safe for you to return to your regular activities, including work or school. ??? Head injury prevention includes wearing a seat belt in a motor vehicle, using a helmet on a bicycle, limiting alcohol use, and taking safety measures in your home. This information is not intended to replace advice given to you by your health care provider. Make sure you discuss any questions you have with your health care provider. Document Revised: 04/18/2020 Document Reviewed: 04/18/2020 [employer] Patient Education ?? 2021 [employer]. 07/08/2022 17:13:07 Fall Prevention in the Home, Adult Fall Prevention in the Home, Adult Falls can cause injuries and can affect people from all age groups. There are many simple things that you can do to make your home safe and to help prevent falls. Ask for help when making these changes, if needed. What actions can I take to prevent falls? General instructions ??? Use good lighting in all rooms. Replace any light bulbs that burn out. ??? Turn on lights if it is dark. Use night-lights. ??? Place frequently used items in mlnh-mo-jfgoj places. Lower the shelves around your home if necessary. ??? Set up furniture so that there are clear paths around it. Avoid moving your furniture around. ??? Remove throw rugs and other tripping hazards from the floor. ??? Avoid walking on wet floors. ??? Fix any uneven floor surfaces. ??? Add color or contrast paint or tape to grab bars and handrails in your home. Place contrasting color strips on the first and last steps of stairways. ??? When you use a stepladder, make sure that it is completely opened and that the sides are firmlylocked. Have someone hold the ladder while you are using it. Do not climb a closed stepladder. ??? Be aware of any and all pets. What can I do in the bathroom? Keep the floor dry. Immediately clean up any water that spills onto the floor. ??? Remove soap buildup in the tub or shower on a regular basis. ??? Use non-skid mats or decals on the floor of the tub or shower. ??? Attach bath mats securely with double-sided, non-slip rug tape. ??? If you need to sit down while you are in the shower, use a plastic, non-slip stool. ??? Install grab bars by the toilet and in the tub and shower. Do not use towel bars as grab bars. What can I do in the bedroom? Make sure that a bedside light is easy to reach. ??? Do not use oversized bedding that drapes onto the floor. ??? Have a firm chair that has side arms to use for getting dressed. What can I do in the kitchen? Clean up any spills right away. ??? If you need to reach for something above you, use a sturdy step stool that has a grab bar. ??? Keep electrical cables out of the way. ??? Do not use floor pu[place] or wax that makes floors slippery. If you must use wax, make sure that it is non-skid floor wax. What can I do in the stairways? Do not leave any items on the stairs. ??? Make sure that you have a light switch at the top of the stairs and the bottom of the stairs. Have them installed if you do not have them. ??? Make sure that there are handrails on both sides of the stairs. Fix handrails that are broken or loose. Make sure that handrails are as long as the stairways. ??? Install non-slip stair treads on all stairs in your home. ??? Avoid having throw rugs at the top or bottom of stairways, or secure the rugs with carpet tape to prevent them from moving. ??? Choose a carpet design that does not hide the edge of steps on the stairway. ??? Check any carpeting to make sure that it is firmly attached to the stairs. Fix any carpet that is loose or worn. What can I do on the outside of my home? Use bright outdoor lighting. ??? Regularly repair the edges of walkways and driveways and fix any cracks. ??? Remove high doorway thresholds. ??? Trim any shrubbery on the main path into your home. ??? Regularly check that handrails are securely fastened and in good repair. Both sides of any steps should have handrails. ??? Install guardrails along the edges of any raised decks or porches. ??? Clear walkways of debris and clutter, including tools and rocks. ??? Have leaves, snow, and ice cleared regularly. ??? Use sand or salt on walkways during winter months. ??? In the garage, clean up any spills right away, including grease or oil spills. What other actions can I take? Wear closed-toe shoes that fit well and support your feet. Wear shoes that have rubber soles orlow heels. ??? Use mobility aids as needed, such as canes, walkers, scooters, and crutches. ??? Review your medicines with your health care provider. Some medicines can cause dizziness or changes in blood pressure, which increase your risk of falling. Talk with your health care provider about other ways that you can decrease your risk of falls. Thismay include working with a physical therapist or marine mammal trainer to improve your strength, balance, and endurance. Where to find more information ??? Centers for Disease Control and Prevention, [place]: https://www.cdc.gov ??? National Ch[employer] on Aging: https://rk2gwrt.basil.nih.gov Contact a health care provider if: ??? You are afraid of falling at home. ??? You feel weak, drowsy, or dizzy at home. ??? You fall at home. Summary ??? There are many simple things that you can do to make your home safe and to help prevent falls. ??? Ways to make your home safe include removing tripping hazards and installing grab bars in the bathroom. ??? Ask for help when making these changes in your home. This information is not intended to replace advice given to you by your health care provider. Make sure you discuss any questions you have with your health care provider. Document Revised: 05/19/2018 Document Reviewed: 01/19/2018 [employer] Patient Education ?? 2020 [employer]. 07/08/2022 17:13:04 Blunt Chest Trauma Blunt Chest Trauma Blunt chest trauma is an injury that is caused by a hard, direct hit to the chest. The hit can be strong enough to injure multiple body parts and organs. Blunt trauma does not involve a puncture of the skin. Blunt chest trauma often results in bruised or broken (fractured) ribs. In many cases, the soft tissue in the chest wall is also injured, and that damage causes pain and bruising. Internal organs, such as the heart and lungs, can be injured as well. Blunt chest trauma can lead to serious medical problems. This injury requires immediate medical care. What are the causes? This condition may be caused by: ??? Motor vehicle collisions. ??? Falls. ??? Physical violence. ??? Sports injuries. What are the signs or symptoms? Symptoms of this condition include: ??? Chest pain. The pain may be worse when you breathe deeply or move. ??? Shortness of breath. ??? Light-headedness. ??? Bruising. ??? Tenderness. ??? Swelling. ??? Feeling as if your heart is racing. How is this diagnosed? This condition is diagnosed based on your medical history and a physical exam. You may also have imaging tests, including: ??? X-ray. ??? CT scan. ??? MRI. ??? Ultrasound. How is this treated? Treatment for this condition depends on your injury type and severity of the injury. You may need to stay in the hospital. Treatment may include: ??? Pain medicine. You may be given pain medicine through an IV at first. You may also be given phem-hia-vjjnvgm and prescription pain medicines. ??? Tubes or other devices, such as an incentive spirometer, to help you breathe. ??? Inserting a tube into your chest to drain excess fluid, blood, or air. ??? Fluid or blood transfusions through an IV. ??? Surgery to repair broken ribs and fix damaged tissue and organs. ??? Lung (pulmonary) rehabilitation. This may include exercises, counseling, or support groups. Follow these instructions at home: Medicines ??? Take vuzm-oef-pujrhgm and prescription medicines only as told by your health care provider. ??? Ask your health care provider if the medicine prescribed to you: ??? Requires you to avoid driving or using machinery. ??? Can cause constipation. You may need to take these actions to prevent or treat constipation: ??? Drink enough fluid to keep your urine pale yellow. ??? Take xsla-zpb-rnnhubb or prescription medicines. ??? Eat foods that are high in fiber, such as beans, whole grains, and fresh fruits and vegetables. ??? Limit foods that are high in fat and processed sugars, such as fried or sweet foods. Managing pain and swelling If directed, put ice on the injured area. To do this: ??? Put ice in a plastic bag. ??? Place a towel between your skin and the bag. ??? Leave the ice on for 20 minutes, 2???3 times a day. ??? Remove the ice if your skin turns bright red. This is very important. If you cannot feel pain, heat, or cold, you have a greater risk of damage to the area. Activity ??? Do not lift anything that is heavier than 10 lb (4.5 kg), or the limit that you are told, untilyour health care provider says that it is safe. ??? Return to your normal activities as told by your health care provider. Ask your health care provider what activities are safe for you. ??? Do exercises as told by your health care provider. General instructions ??? Do not use any products that contain nicotine or tobacco, such as cigarettes, e-cigarettes, andchewing tobacco. These can delay healing. If you need help quitting, ask your health care provider. ??? Use your incentive spirometer as told to help you take deep breaths. ??? Consider joining a support group. This may help you learn about your condition and techniques to help with recovery. ??? Keep all follow-up visits. This is important. Follow-up visits may include counseling. Contact a health care provider if: ??? Your pain gets worse. ??? You develop a cough or wheezing. Get help right away if: ??? You experience any of the following: ??? Shortness of breath. ??? Pain in your abdomen. ??? Nausea or vomiting. ??? A fever or chills. ??? A rapid heart rate. ??? You cough up blood. ??? You feel dizzy or weak. ??? You faint. ??? You have severe chest pain. This may come with other symptoms, such as: ??? Dizziness. ??? Shortness of breath. ??? Pain in your neck, jaw, or back, or in one arm or both arms. These symptoms may represent a serious problem that is an emergency. Do not wait to see if the symptoms will go away. Get medical help right away. Call your local emergency services (911 in the [place] Do not drive yourself to the hospital. Summary ??? Blunt chest trauma is an injury that is caused by a hard, direct hit to the chest. It may involve broken ribs, damage to the chest wall, and injury to internal organs such as the heart and lungs. ??? Blunt chest trauma can lead to serious medical problems. This injury requires immediate medicalcare. ??? Symptoms may include chest pain when moving or taking deep breaths, shortness of breath, bruising or swelling of the chest, faster heartbeat, and light-headedness. ??? Treatment for this condition depends on what type of injury you have and how severe it is. ??? Make sure you know which symptoms should cause you to get help right away. This information is not intended to replace advice given to you by your health care provider. Make sure you discuss any questions you have with your health care provider. Document Revised: 09/10/2020 Document Reviewed: 09/10/2020 [employer] Patient Education ?? 2021 [employer] Follow Up Care 07/08/2022 15:50:30 With:primary care provider Address: When:2 to 4 days Emergency department Discharge instructions * Brittani Sanz MARKER MACHINE: PERFORM Event Display: ED Discharge Information Authored Date: [id number] RED PEGUERO :1945 Age:76 years Sex:Male Visit Date:07/08/2022 Primary Care Physician: Camelia Phillip MD Discharge Instructions We would like to thank you for allowing us to assist you with your healthcare needs. The following includes patient education materials and information regarding your injury/illness. Diagnosis from Today's Visit Head injury Chest wall contusion Fall at home Unspecified place in unspecified non-institutional (private) residence as the place of occurrence of the external cause Discharge Vitals Temperature??(Temporal Artery) 98.6 ??F (37 ??C) Heart Rate??(Peripheral) 72 Respiratory Rate?? 16 Blood Pressure?? 129/70?? Height?? 64.96 in (165.000 cm) Weight??(Estimated) 158.03 lb (71.67 kg) Allergies fluticasone??(unknown) gabapentin??(unknown) morphine oxyCODONE??(Unknown) pregabalin??(unknown) What to Do Next Instructions from Your Care Team Continue your usual medications as previously directed keep your diet light as you may experience some nausea and vomiting You can use acetaminophen 650 mg every 4 hours if needed for headache aches or pains. Make sure you cough and deep breathe splint to your chest wall if needed for the pain Keep your abrasions clean and dry washing daily with warm soapy water can apply bacitracin ointmentand dry dressing such as a Band-Aid to protect Monitor for and report confusion worsening headache chest pain shortness of breath you are leaving prior to the final reads of your cat scans.?? you may have serious injuries we havenot yet identified.?? You Need to Schedule the Following Appointments Follow Up with??primary care provider When:??Within 2 to 4 days Upcoming Scheduled Appointments Tuesday 4:00 PM EST ?? You were treated today on an emergency basis; it may be dillard to contact your primary care provider to notify them of your visit today. You may have been referred to your regular doctor or a specialist, please follow up as instructed. If your condition worsens or you can't get in to see the doctor, contact the Emergency Department. Medications What How Much When Instructions Next Dose Unchanged apixaban (Eliquis 5 mg oral tablet) 1 tab Oral (given by mouth) 2 times a day appt ?? Unchanged atorvastatin (atorvastatin 10 mg oral tablet) 1 tab Oral (given by mouth) Every day Unchanged diclofenac topical (diclofenac 3% topical gel) 1 Percent Topical (on the skin) Unchanged Durable Medical Equipment for Prescription (Durable Medical Equipment) See instructions Unchanged furosemide (furosemide 20 mg oral tablet) 1 tab Oral (given by mouth) Every day Unchanged ipratropium-albuterol (ipratropium-albuterol CFC free 20 mcg-100 mcg/ inh inhalation aerosol) Unchanged lisinopril (lisinopril 2.5 mg oral tablet) 1 tab Oral (given by mouth) Every day Unchanged metoprolol (metoprolol succinate 50 mg oral capsule, extended release) 1 Capsules Oral (given by mouth) Every day Unchanged multivitamin (multivitamin adult, oral tablet) 1 Unknown ?? Unchanged nitroglycerin (nitroglycerin 0.4 mg sublingual tablet) Unchanged omeprazole (omeprazole 20 mg oral delayed release tablet) 20 Milligrams Oral (given by mouth) 2 times a day Duration: 90 Days take it 30 minutes before morning meal . ?? Unchanged oxyCODONE (oxyCODONE 5 mg oral tablet) See instructions take 2 tabs by mouth every morning, then take 1 tab in the afternoon, and then 2 tabs every eveningfor pain ?? Unchanged simvastatin (simvastatin 20 mg oral tablet) 1 tab Oral (given by mouth) Every night at bedtime Unchanged terazosin 2 Milligrams Every day Unchanged traZODone (traZODone 50 mg oral tablet) 1 tab Oral (given by mouth) Every day Unchanged venlafaxine 37.5 Milligrams Unchanged zinc oxide topical (zinc oxide topical ointment) 20 Percent Topical (on the skin) Unchanged zolpidem (Ambien) 5 Milligrams Oral (given by mouth) Every night at bedtime as needed for as needed Education Materials Head Injury, Adult There are many types of head injuries. Head injuries can be as minor as a small bump, or they can be a serious medical issue. More severe head injuries include: ? A jarring injury to the brain (concussion). ? A bruise (contusion) of the brain. This means there is bleeding in the brain that can cause swelling. ? A cracked skull (skull fracture). ? Bleeding in the brain that collects, clots, and forms a bump (hematoma). After a head injury, most problems occur within the first 24 hours, but side effects may occur up to 7???10 days after the injury. It is important to watch your condition for any changes. You may need to be observed in the emergency department or urgent care, or you may be admitted to the hospital. What are the causes? There are many possible causes of a head injury. Serious head injuries may be caused by car accidents, bicycle or motorcycle accidents, sports injuries, falls, or being struck by an object. What are the symptoms? Symptoms of a head injury include a contusion, bump, or bleeding at the site of the injury. Other physical symptoms may include: ? Headache. ? Nausea or vomiting. ? Dizziness. ? Blurred or double vision. ? Being uncomfortable around bright lights or loud noises. ? Seizures. ? Feeling tired. ? Trouble being awakened. ? Loss of consciousness. Mental or emotional symptoms may include: ? Irritability. ? Confusion and memory problems. ? Poor attention and concentration. ? Changes in eating or sleeping habits. ? Anxiety or depression. How is this diagnosed? This condition can usually be diagnosed based on your symptoms, a description of the injury, and a physical exam. You may also have imaging tests done, such as a CT scan or an MRI. How is this treated? Treatment for this condition depends on the severity and type of injury you have. The main goal of treatment is to prevent complications and allow the brain time to heal. Mild head injury If you have a mild head injury, you may be sent home, and treatment may include: ? Observation. A responsible adult should stay with you for 24 hours after your injury and check on you often. ? Physical rest. ? Brain rest. ? Pain medicines. Severe head injury If you have a severe head injury, treatment may include: ? Close observation. This includes hospitalization with the following care: ? Frequent physical exams. ? Frequent checks of how your brain and nervous system are working (neurological status). ? Checking your blood pressure and oxygen levels. ? Medicines to relieve pain, prevent seizures, and decrease brain swelling. ? Airway protection and breathing support. This may include using a ventilator. ? Treatments that monitor and manage swelling inside the brain. ? Brain surgery. This may be needed to: ? Remove a collection of blood or blood clots. ? Stop the bleeding. ? Remove a part of the skull to allow room for the brain to swell. Follow these instructions at home: Activity ? Rest and avoid activities that are physically hard or tiring. ? Make sure you get enough sleep. ? Let your brain rest by limiting activities that require a lot of thought or attention, such as: ? Watching TV. ? Playing memory games and puzzles. ? Job-related work or homework. ? Working on the computer, using social media, and texting. ? Avoid activities that could cause another head injury, such as playing sports, until your health care provider approves. Having another head injury, especially before the first one has healed, can bedangerous. ? Ask your health care provider when it is safe for you to return to your regular activities, including work or school. Ask your health care provider for a hflp-sc-wxvh plan for gradually returning to activities. ? Ask your health care provider when you can drive, ride a bicycle, or use heavy machinery. Your ability to react may be slower after a brain injury. Do not do these activities if you are dizzy. Lifestyle ? Do not drink alcohol until your health care provider approves. Do not use drugs. Alcohol and certain drugs may slow your recovery and can put you at risk of further injury. ? If it is harder than usual to remember things, write them down. ? If you are easily distracted, try to do one thing at a time. ? Talk with family members or close friends when making important decisions. ? Tell your friends, family, a trusted colleague, and network associate about your injury, symptoms, and restrictions. Have them watch for any new or worsening problems. General instructions ? Take vamn-des-zygjvbn and prescription medicines only as told by your health care provider. ? Have someone stay with you for 24 hours after your head injury. This person should watch you for any changes in your symptoms and be ready to seek medical help. ? Keep all follow-up visits as told by your health care provider. This is important. How is this prevented? Work on improving your balance and strength to avoid falls. ? Wear a seat belt when you are in a moving vehicle. ? Wear a helmet when riding a bicycle, skiing, or doing any other sport or activity that has a risk of injury. ? If you drink alcohol: ? Limit how much you use to: ? 0???1 drink a day for non women. ? 0???2 drinks a day for men. ? Be aware of how much alcohol is in your drink. In the [place] one drink equals one 12 oz bottle of beer (355 mL), one 5 oz glass of wine (148 mL), or one 1?? oz glass of hard liquor (44 mL). ? Take safety measures in your home, such as: ? Removing clutter and tripping hazards from floors and stairways. ? Using grab bars in bathrooms and handrails by stairs. ? Placing non-slip mats on floors and in bathtubs. ? Improving lighting in dim areas. Where to find more information ? Centers for Disease Control and Prevention: www.cdc.gov Get help right away if: ? You have: ? A severe headache that is not helped by medicine. ? Trouble walking or weakness in your arms and legs. ? Clear or bloody fluid coming from your nose or ears. ? Changes in your vision. ? A seizure. ? Increased confusion or irritability. ? Your symptoms get worse. ? You are sleepier than normal and have trouble staying awake. ? You lose your balance. ? Your pupils change size. ? Your speech is slurred. ? Your dizziness gets worse. ? You vomit. These symptoms may represent a serious problem that is an emergency. Do not wait to see if the symptoms will go away. Get medical help right away. Call your local emergency services (911 in the [place] Do not drive yourself to the hospital. Summary ? Head injuries can be minor, or they can be a serious medical issue requiring immediate attention. ? Treatment for this condition depends on the severity and type of injury you have. ? Have someone stay with you for 24 hours after your injury and check on you often. ? Ask your health care provider when it is safe for you to return to your regular activities, including work or school. ? Head injury prevention includes wearing a seat belt in a motor vehicle, using a helmet on a bicycle, limiting alcohol use, and taking safety measures in your home. This information is not intended to replace advice given to you by your health care provider. Make sure you discuss any questions you have with your health care provider. Document Revised: 04/18/2020 Document Reviewed: 04/18/2020 [employer] Patient Education ?? [employer] Fall Prevention in the Home, Adult Falls can cause injuries and can affect people from all age groups. There are many simple things that you can do to make your home safe and to help prevent falls. Ask for help when making these changes, if needed. What actions can I take to prevent falls? General instructions ? Use good lighting in all rooms. Replace any light bulbs that burn out. ? Turn on lights if it is dark. Use night-lights. ? Place frequently used items in aqqd-yk-sivps places. Lower the shelves around your home if necessary. ? Set up furniture so that there are clear paths around it. Avoid moving your furniture around. ? Remove throw rugs and other tripping hazards from the floor. ? Avoid walking on wet floors. ? Fix any uneven floor surfaces. ? Add color or contrast paint or tape to grab bars and handrails in your home. Place contrasting color strips on the first and last steps of stairways. ? When you use a stepladder, make sure that it is completely opened and that the sides are firmly locked. Have someone hold the ladder while you are using it. Do not climb a closed stepladder. ? Be aware of any and all pets. What can I do in the bathroom? Keep the floor dry. Immediately clean up any water that spills onto the floor. ? Remove soap buildup in the tub or shower on a regular basis. ? Use non-skid mats or decals on the floor of the tub or shower. ? Attach bath mats securely with double-sided, non-slip rug tape. ? If you need to sit down while you are in the shower, use a plastic, non-slip stool. ? Install grab bars by the toilet and in the tub and shower. Do not use towel bars as grab bars. What can I do in the bedroom? Make sure that a bedside light is easy to reach. ? Do not use oversized bedding that drapes onto the floor. ? Have a firm chair that has side arms to use for getting dressed. What can I do in the kitchen? Clean up any spills right away. ? If you need to reach for something above you, use a sturdy step stool that has a grab bar. ? Keep electrical cables out of the way. ? Do not use floor [place] or wax that makes floors slippery. If you must use wax, make sure that it is non-skid floor wax. What can I do in the stairways? Do not leave any items on the stairs. ? Make sure that you have a light switch at the top of the stairs and the bottom of the stairs. Have them installed if you do not have them. ? Make sure that there are handrails on both sides of the stairs. Fix handrails that are broken or loose. Make sure that handrails are as long as the stairways. ? Install non-slip stair treads on all stairs in your home. ? Avoid having throw rugs at the top or bottom of stairways, or secure the rugs with carpet tape to prevent them from moving. ? Choose a carpet design that does not hide the edge of steps on the stairway. ? Check any carpeting to make sure that it is firmly attached to the stairs. Fix any carpet that is loose or worn. What can I do on the outside of my home? Use bright outdoor lighting. ? Regularly repair the edges of walkways and driveways and fix any cracks. ? Remove high doorway thresholds. ? Trim any shrubbery on the main path into your home. ? Regularly check that handrails are securely fastened and in good repair. Both sides of any steps should have handrails. ? Install guardrails along the edges of any raised decks or porches. ? Clear walkways of debris and clutter, including tools and rocks. ? Have leaves, snow, and ice cleared regularly. ? Use sand or salt on walkways during winter months. ? In the garage, clean up any spills right away, including grease or oil spills. What other actions can I take? Wear closed-toe shoes that fit well and support your feet. Wear shoes that have rubber soles or lowheels. ? Use mobility aids as needed, such as canes, walkers, scooters, and crutches. ? Review your medicines with your health care provider. Some medicines can cause dizziness or changesin blood pressure, which increase your risk of falling. Talk with your health care provider about other ways that you can decrease your risk of falls. Thismay include working with a physical therapist or marine mammal trainer to improve your strength, balance, and endurance. Where to find more information ? Centers for Disease Control and Prevention, [place]: https://www.cdc.gov ? National Ch[place] on Aging: https://ny0mdvc.basil.nih.gov Contact a health care provider if: ? You are afraid of falling at home. ? You feel weak, drowsy, or dizzy at home. ? You fall at home. Summary ? There are many simple things that you can do to make your home safe and to help prevent falls. ? Ways to make your home safe include removing tripping hazards and installing grab bars in the bathroom. ? Ask for help when making these changes in your home. This information is not intended to replace advice given to you by your health care provider. Make sure you discuss any questions you have with your health care provider. Document Revised: 05/19/2018 Document Reviewed: 01/19/2018 Elsevier Patient Education ?? 2020 [employer] Blunt Chest Trauma Blunt chest trauma is an injury that is caused by a hard, direct hit to the chest. The hit can be strong enough to injure multiple body parts and organs. Blunt trauma does not involve a puncture of the skin. Blunt chest trauma often results in bruised or broken (fractured) ribs. In many cases, the soft tissue in the chest wall is also injured, and that damage causes pain and bruising. Internal organs, such as the heart and lungs, can be injured as well. Blunt chest trauma can lead to serious medical problems. This injury requires immediate medical care. What are the causes? This condition may be caused by: ? Motor vehicle collisions. ? Falls. ? Physical violence. ? Sports injuries. What are the signs or symptoms? Symptoms of this condition include: ? Chest pain. The pain may be worse when you breathe deeply or move. ? Shortness of breath. ? Light-headedness. ? Bruising. ? Tenderness. ? Swelling. ? Feeling as if your heart is racing. How is this diagnosed? This condition is diagnosed based on your medical history and a physical exam. You may also have imaging tests, including: ? X-ray. ? CT scan. ? MRI. ? Ultrasound. How is this treated? Treatment for this condition depends on your injury type and severity of the injury. You may need to stay in the hospital. Treatment may include: ? Pain medicine. You may be given pain medicine through an IV at first. You may also be given zegh-cqr-lyhbkjz and prescription pain medicines. ? Tubes or other devices, such as an incentive spirometer, to help you breathe. ? Inserting a tube into your chest to drain excess fluid, blood, or air. ? Fluid or blood transfusions through an IV. ? Surgery to repair broken ribs and fix damaged tissue and organs. ? Lung (pulmonary) rehabilitation. This may include exercises, counseling, or support groups. Follow these instructions at home: Medicines ? Take yrzp-jwo-qahwlgq and prescription medicines only as told by your health care provider. ? Ask your health care provider if the medicine prescribed to you: ? Requires you to avoid driving or using machinery. ? Can cause constipation. You may need to take these actions to prevent or treat constipation: ? Drink enough fluid to keep your urine pale yellow. ? Take ssdt-fkj-mhnmhdm or prescription medicines. ? Eat foods that are high in fiber, such as beans, whole grains, and fresh fruits and vegetables. ? Limit foods that are high in fat and processed sugars, such as fried or sweet foods. Managing pain and swelling If directed, put ice on the injured area. To do this: ? Put ice in a plastic bag. ? Place a towel between your skin and the bag. ? Leave the ice on for 20 minutes, 2???3 times a day. ? Remove the ice if your skin turns bright red. This is very important. If you cannot feel pain, heat, or cold, you have a greater risk of damage to the area. Activity ? Do not lift anything that is heavier than 10 lb (4.5 kg), or the limit that you are told, until your health care provider says that it is safe. ? Return to your normal activities as told by your health care provider. Ask your health care provider what activities are safe for you. ? Do exercises as told by your health care provider. General instructions ? Do not use any products that contain nicotine or tobacco, such as cigarettes, e- cigarettes, and chewing tobacco. These can delay healing. If you need help quitting, ask your health care provider. ? Use your incentive spirometer as told to help you take deep breaths. ? Consider joining a support group. This may help you learn about your condition and techniques to help with recovery. ? Keep all follow-up visits. This is important. Follow-up visits may include counseling. Contact a health care provider if: ? Your pain gets worse. ? You develop a cough or wheezing. Get help right away if: ? You experience any of the following: ? Shortness of breath. ? Pain in your abdomen. ? Nausea or vomiting. ? A fever or chills. ? A rapid heart rate. ? You cough up blood. ? You feel dizzy or weak. ? You faint. ? You have severe chest pain. This may come with other symptoms, such as: ? Dizziness. ? Shortness of breath. ? Pain in your neck, jaw, or back, or in one arm or both arms. These symptoms may represent a serious problem that is an emergency. Do not wait to see if the symptoms will go away. Get medical help right away. Call your local emergency services (911 in the [place] Do not drive yourself to the hospital. Summary ? Blunt chest trauma is an injury that is caused by a hard, direct hit to the chest. It may involve broken ribs, damage to the chest wall, and injury to internal organs such as the heart and lungs. ? Blunt chest trauma can lead to serious medical problems. This injury requires immediate medical care. ? Symptoms may include chest pain when moving or taking deep breaths, shortness of breath, bruising or swelling of the chest, faster heartbeat, and light-headedness. ? Treatment for this condition depends on what type of injury you have and how severe it is. ? Make sure you know which symptoms should cause you to get help right away. This information is not intended to replace advice given to you by your health care provider. Make sure you discuss any questions you have with your health care provider. Document Revised: 09/10/2020 Document Reviewed: 09/10/2020 Elsevier Patient Education ?? 2021 [employer] Tests Performed Radiology CT Head w/o Contrast 07/08/2022 18:[address] Maxillofacial w/o Contrast 07/08/2022 17:[address] Spine Cervical w/o Contrast 07/08/2022 18:03 EST Lab Test Name Test Result Date/Time WBC 8.2 K/mcL 07/08/2022 16:44 EST RBC 3.42 Million/mcL 07/08/2022 16:44 EST Hgb 10.5 g/dL 07/08/2022 16:44 EST Hct 32.6 % 07/08/2022 16:44 EST MCV 95.3 fL 07/08/2022 16:44 EST MCH 30.7 pg 07/08/2022 16:44 EST MCHC 32.2 g/dL 07/08/2022 16:44 EST RDW-CV 14.3 % 07/08/2022 16:44 EST Platelets 259 K/mcL 07/08/2022 16:44 EST MPV 8.4 fL 07/08/2022 16:44 EST Neutro Auto 62.1 % 07/08/2022 16:44 EST Lymph Auto 25.4 % 07/08/2022 16:44 EST [place] Auto 7.8 % 07/08/2022 16:44 EST Eos, Auto 3.80 % 07/08/2022 16:44 EST Basophil Auto 0.7 % 07/08/2022 16:44 EST Imm Gran Auto 0.2 % 07/08/2022 16:44 EST Neutro Absolute 5.1 K/mcL 07/08/2022 16:44 EST Lymph Absolute 2.1 K/mcL 07/08/2022 16:44 EST [place] Absolute 0.6 K/mcL 07/08/2022 16:44 EST Eos Absolute 0.3 K/mcL 07/08/2022 16:44 EST Baso Absolute 0.1 K/mcL 07/08/2022 16:44 EST Imm Gran Absolute 0.02 07/08/2022 16:44 EST Prothrombin Time 11.6 seconds 07/08/2022 16:44 EST INR 1.2 07/08/2022 16:44 EST Sodium Level 129 mmol/L 07/08/2022 16:44 EST Potassium Level 4.1 mmol/L 07/08/2022 16:44 EST Chloride Level 95 mmol/L 07/08/2022 16:44 EST CO2 26 mmol/L 07/08/2022 16:44 EST BUN 19 mg/dL 07/08/2022 16:44 EST Glucose Level 104 mg/dL 07/08/2022 16:44 EST Creatinine Level 0.97 mg/dL 07/08/2022 16:44 EST BUN/Creat Ratio 19.6 07/08/2022 16:44 EST Calcium Level 8.5 mg/dL 07/08/2022 16:44 EST Anion Gap 8.0 07/08/2022 16:44 EST Osmolality 262 mOsm/kg 07/08/2022 16:44 EST eGFR CKD-EPI 81 mL/min/1.73 m2 07/08/2022 16:44 EST Patient/Boat Deckhand Signature Patient Name:RED PEGUERO I have received this information and my questions have been answered. Patient/Boat Deckhand Name: Patient/Boat Deckhand Signature: Relationship to Patient: Witness Name/Signature: Date: Electronically Signed on: 07/08/2022 18:15 ESTSigned by:[facility] Maxillofacial region WO contrast * Caroline Manning MD: VERIFY, VERIFY Event Display: Report PROCEDURE INFORMATION: Exam: CT Maxillofacial Without Contrast Exam date and time: 07/08/2022 4:59 PM Age: 76 years old Clinical indication: Injury or trauma; Fall; Blunt trauma (contusions or hematomas); Injury date: 07/08/22 TECHNIQUE: Imaging protocol: Computed tomography of the face without contrast. Radiation optimization: All CT scans at this facility use at least one of these dose optimization techniques: automated exposure control; mA and/or kV adjustment per patient size (includes targeted exams where dose is matched to clinical indication); or iterative reconstruction. COMPARISON: Prior facial bone CT of 10/19/2021 FINDINGS: Orbital cavities: No acute abnormality. No evidence of orbital emphysema or retrobulbar hemorrhage. Bones/joints: Mildly depressed fracture of the right orbital floor, image 18/87, which is chronic, seen also on the prior CT. No acute fractures seen. Remaining visualized bony structures appear intact. No evidence of acute dislocation. Paranasal sinuses: Visualized paranasal sinuses are clear. No air-fluid levels. Soft tissues: Left periorbital soft tissue swelling. IMPRESSION: 1. No acute facial bone fractures. 2. Old fracture of the right orbital floor. 3. See above for remaining findings. THIS DOCUMENT HAS BEEN ELECTRONICALLY SIGNED BY CAROLINE MANNING MD on 07/08/2022 05:54 PM Final Signed by: Caroline Manning MD Signed (Electronic Signature): 07/08/2022 5:[address] Cervical spine WO contrast * Caroline Manning MD: VERIFY, VERIFY Event Display: Report PROCEDURE INFORMATION: Exam: CT Cervical Spine Without Contrast Exam date and time: 07/08/2022 4:59 PM Age: 76 years old Clinical indication: Injury or trauma; Fall; Unconscious; Injury date: 07/08/22 TECHNIQUE: Imaging protocol: Computed tomography of the cervical spine without contrast. Radiation optimization: All CT scans at this facility use at least one of these dose optimization techniques: automated exposure control; mA and/or kV adjustment per patient size (includes targeted exams where dose is matched to clinical indication); or iterative reconstruction. COMPARISON: None is available. FINDINGS: Limitations: Streak artifact from metallic hardware. Bones/joints: Metallic hardware in the left clavicle, related to surgical fixation of an old fracture. Multilevel degenerative disc disease, mainly involving the C5-C6 through C7-T1 levels, where there is moderate to severe degenerative disc disease. Degenerative changes at the atlantoaxial articulation. No acute cervical spine fractures visualized. No significant vertebral subluxation. No evidence of acute facet dislocation. Lungs: Moderate emphysema noted in the imaged lung apices. Pleural spaces: No apical pneumothorax seen. Soft tissues: No acute abnormality. Multiple chronic, corticated bony densities in the soft tissues abutting both clavicles, likely related to remote traumatic injury. IMPRESSION: 1. No acute cervical spine fractures. 2. Emphysema incidentally noted. 3. See above for remaining chronic and/or incidental findings. THIS DOCUMENT HAS BEEN ELECTRONICALLY SIGNED BY CAROLINE MANNING MD on 07/08/2022 06:03 PM Final Signed by: Caroline Manning MD Signed (Electronic Signature): 07/08/2022 6:[address] Head WO contrast * Caroline Manning MD: VERIFY, VERIFY Event Display: Report PROCEDURE INFORMATION: Exam: CT Head Without Contrast Exam date and time: 07/08/2022 4:59 PM Age: 76 years old Clinical indication: Injury or trauma; Fall; Unconscious; Injury date: 07/08/22 TECHNIQUE: Imaging protocol: Computed tomography of the head without contrast. Radiation optimization: All CT scans at this facility use at least one of these dose optimization techniques: automated exposure control; mA and/or kV adjustment per patient size (includes targeted exams where dose is matched to clinical indication); or iterative reconstruction. COMPARISON: Prior head CT of 10/19/2021 FINDINGS: Brain: Small area of low density in the left frontal white matter, most likely secondary to chronic small vessel ischemic change. No significant acute abnormality identified. No acute hemorrhage seen within the brain. No acute extra-axial fluid collections visualized. No evidence of significant mass effect within the brain. Cerebral ventricles: No evidence of significant hydrocephalus. Paranasal sinuses: Visualized sinuses are clear. No fluid levels. Mastoid air cells: Clear visualized mastoid air cells. Bones/joints: No acute abnormality. No acute fractures. Soft tissues: Left periorbital soft tissue swelling. IMPRESSION: 1. No evidence of acute intracranial injury or fractures. 2. See above for remaining chronic and/or incidental findings. THIS DOCUMENT HAS BEEN ELECTRONICALLY SIGNED BY CAROLINE MANNING MD on 07/08/2022 06:11 PM Final Signed by: Caroline Manning MD Signed (Electronic Signature): 07/08/2022 6:[address] Chest W contrast IV * Srinivas Galvan MD: VERIFY, VERIFY Event Display: Report PROCEDURE INFORMATION: Exam: CT Chest With Contrast; Diagnostic Exam date and time: 07/08/2022 5:05 PM Age: 76 years old Clinical indication: Injury; Fall; Blunt trauma; Injury date: 07/08/22 TECHNIQUE: Imaging protocol: Diagnostic computed tomography of the chest with contrast. Radiation optimization: All CT scans at this facility use at least one of these dose optimization techniques: automated exposure control; mA and/or kV adjustment per patient size (includes targeted exams where dose is matched to clinical indication); or iterative reconstruction. Contrast material: ISOVUE 370; Contrast volume: 100 ml; Contrast route: INTRAVENOUS (IV); COMPARISON: CT SPINE CERVICAL WO CONTRAST 07/08/2022 4:59 PM FINDINGS: Lungs: No lung contusion. No consolidation. Pleural spaces: No pneumothorax. No pleural effusion. Heart: Heart size within normal limits. Coronary artery and mitral valve annulus calcification. Lymph nodes: No enlarged lymph nodes. Vasculature: Unremarkable. No aortic aneurysm. Bones/joints: No acute fracture. Spinal degenerative changes. Old fractures of the right 7th through 9th lateral ribs. Likely old fracture involving the right acromial region. Prior ORIF left clavicle. Old fractures of the left 4th through 7th anterolateral ribs. Right shoulder joint effusion with right shoulder region soft tissue calcifications. Soft tissues: Unremarkable. IMPRESSION: 1. No acute fracture. 2. Old fractures of the right 7th through 9th lateral ribs. Likely old fracture involving the right acromial region. Prior ORIF left clavicle. Old fractures of the left 4th through 7th anterolateral ribs. 3. Right shoulder joint effusion with right shoulder region soft tissue calcifications. 4. No acute intrathoracic findings. THIS DOCUMENT HAS BEEN ELECTRONICALLY SIGNED BY SRINIVAS GALVAN MD on 07/08/2022 06:18 PM Final Signed by: Srinivas Galvan MD Signed (Electronic Signature): 07/08/2022 6:[address] Abdomen and Pelvis W contrast IV * Srinivas Galvan MD: VERIFY, VERIFY Event Display: Report PROCEDURE INFORMATION: Exam: CT Abdomen And Pelvis With Contrast Exam date and time: 07/08/2022 5:05 PM Age: 76 years old Clinical indication: Injury; Fall; Blunt trauma; Injury date: 07/08/22 TECHNIQUE: Imaging protocol: Computed tomography of the abdomen and pelvis with contrast. Radiation optimization: All CT scans at this facility use at least one of these dose optimization techniques: automated exposure control; mA and/or kV adjustment per patient size (includes targeted exams where dose is matched to clinical indication); or iterative reconstruction. Contrast material: 370; Contrast volume: 100 ml; Contrast route: INTRAVENOUS (IV); COMPARISON: MR ABDOMEN WO CONTRAST 02/25/2022 3:08 PM FINDINGS: Liver: Normal. No mass. Gallbladder and bile ducts: Normal. No calcified stones. No ductal dilation. Pancreas: Normal. No ductal dilation. Spleen: Normal. No splenomegaly. Adrenal glands: Likely prior adrenalectomy. Compared to prior MR abdomen dated , no interval change in left adrenal adenoma. Kidneys and ureters: No hydronephrosis. No calcified renal or ureteral stones. No perinephric stranding or perinephric fluid. Stomach and bowel: No generalized ileus or bowel obstruction. Scattered sigmoid the colon diverticuli without evidence of diverticulitis. Appendix: No evidence of appendicitis. Intraperitoneal space: No free air. No significant fluid collection. Vasculature: Unremarkable. No abdominal aortic aneurysm. Lymph nodes: No enlarged lymph nodes. Urinary bladder: Unremarkable as visualized. Reproductive: Unremarkable as visualized. Bones/joints: Spinal degenerative changes. Old right-sided rib fractures. No acute fracture. Soft tissues: Areas of subcutaneous soft tissue edema. IMPRESSION: 1. No acute fracture. 2. No acute intra-abdominal or pelvic process. 3. Scattered sigmoid the colon diverticuli without evidence of diverticulitis. THIS DOCUMENT HAS BEEN ELECTRONICALLY SIGNED BY SRINIVAS GALVAN MD on 07/08/2022 06:25 PM Final Signed by: Srinivas Galvan MD Signed (Electronic Signature): 07/08/2022 6:25 pm Patient Care team information Personnel Name: Camelia Phillip MD Address: Address: [address] [place] [address]
--- OUTSIDE RECORDS SUMMARY | 2023-04-21 18:46 | XMS_ITS | Continuity of Care Document ---
Author Name Unknown Organization [facility] Ambulatory Clinics Address [address] [place] [address] Care Team Providers Care Airworthiness Safety Inspector Name Role Phone Delvis Dinero DO Primary Care Physician [phone] Encounter [facility] NBR [id number] Date(s): 12/01/22 - 12/01/22 [facility] Ambulatory Clinics [address] [place] [address] [place] Discharge Disposition: Home Allergies, Adverse Reactions, Alerts Substance Reaction Severity Status morphine Unknown Active fluticasone unknown Unknown Active gabapentin unknown Unknown Active pregabalin unknown Unknown Active oxyCODONE Unknown Unknown Active Assessment and Plan Future Scheduled Tests Laboratory* Comprehensive Metabolic Panel 09/14/22 * Lipid Panel 09/14/22 Radiology* US Abdomen Limited 05/24/22 Medications Albuterol (Eqv-ProAir HFA) 90 mcg/inh inhalation aerosol 2 puffs, Inhale, QID, PRN Air Hunger, # 8.5 g, 11 Refill(s), Pharmacy: [facility] #93, 165, cm, 07/08/22 16:32:00 EST, Height/Length Dosing, 71.67, kg, 07/08/22 16:32:00 EST, Weight Dosing Start Date: 12/01/22 Status: Ordered Ambien 5 mg oral tablet 5 mg =, Oral, every night at bedtime, PRN as needed, # 30 tab, 5 Refill(s), Pharmacy: [facility] #93, 165, cm, 07/08/22 16:32:00 EST, Height/Length Dosing, 71.67, kg, 07/08/22 16:32:00 EST, Weight Dosing Start Date: 12/01/22 Status: Ordered diclofenac 1% topical gel 4 g, Topical, QID, PRN pain, # 100 g, 11 Refill(s), Pharmacy: [facility] #[facility], 165, cm, 07/08/22 16:32:00 EST, Height/Length Dosing, 71.67, kg, 07/08/22 16:32:00 EST, Weight Dosing Start Date: 12/01/22 Status: Ordered Eliquis 5 mg oral tablet 5 mg = 1 tab, Oral, BID, # 180 tab, 3 Refill(s), Pharmacy: [facility] #[facility], 165, cm, 07/08/22 16:32:00 EST, Height/Length Dosing, 71.67, kg, 07/08/22 16:32:00 EST, Weight Dosing Start Date: 12/01/22 Status: Ordered ipratropium-albuterol CFC free 20 mcg-100 mcg/inh inhalation aerosol 0 Refill(s) Start Date: 05/11/22 Status: Ordered lisinopril 20 mg oral tablet 20 mg = 1 tab, Oral, Daily, # 90 tab, 3 Refill(s), Pharmacy: [facility] #93, 165, cm, 07/08/22 16:32:00 EST, Height/Length Dosing, 71.67, kg, 07/08/22 16:32:00 EST, Weight Dosing Start Date: 12/01/22 Status: Ordered metoprolol succinate 25 mg oral tablet, extended release 25 mg = 1 tab, Oral, Daily, # 90 tab, 3 Refill(s), Pharmacy: [facility] #93, 165, cm, 07/08/22 16:32:00 EST, Height/Length Dosing, 71.67, kg, 07/08/22 16:32:00 EST, Weight Dosing Start Date: 12/01/22 Status: Ordered multivitamin adult, oral tablet 1 Unknown, 0 Refill(s) Start Date: 05/11/22 Status: Ordered nitroglycerin 0.4 mg sublingual tablet 0 Refill(s) Start Date: 04/20/22 Status: Ordered omeprazole 20 mg oral delayed release capsule 20 mg = 1 cap, Oral, Daily, # 90 cap, 3 Refill(s), Pharmacy: [facility] #93, 165, cm, 07/08/22 16:32:00 EST, Height/Length Dosing, 71.67, kg, 07/08/22 16:32:00 EST, Weight Dosing Start Date: 12/01/22 Status: Ordered oxyCODONE 5 mg oral tablet See Instructions, PRN as needed for pain, Take 2 tablets in the AM, 1 tablet in the afternoon, 2 tablets in the evening orally three times a day. 30 days, # 150 tab, 0 Refill(s) Start Date: 11/26/22 Status: Ordered simvastatin 20 mg oral tablet 20 mg = 1 tab, Oral, every night at bedtime, # 90 tab, 5 Refill(s), Pharmacy: [facility] #[facility], 165, cm, 07/08/22 16:32:00 EST, Height/Length Dosing, 71.67, kg, 07/08/22 16:32:00 EST, Weight Dosing Start Date: 12/01/22 Status: Ordered Stiolto Respimat 2.5 mcg-2.5 mcg/inh inhalation aerosol 2 puffs, Inhale, every 24 hr, # 4 g, 11 Refill(s), Pharmacy: [facility] #93, 165, cm, 07/08/22 16:32:00 EST, Height/Length Dosing, 71.67, kg, 07/08/22 16:32:00 EST, Weight Dosing Start Date: 12/01/22 Status: Ordered terazosin 2 mg oral capsule 2 mg =, Oral, Daily, # 90 cap, 3 Refill(s), Pharmacy: [facility], 165, cm, 07/08/22 16:32:00 EST, Height/Length Dosing, 71.67, kg, 07/08/22 16:32:00 EST, Weight Dosing Start Date: 09/24/22 Stop Date: 09/19/23 Status: Ordered traZODone 100 mg oral tablet 100 mg = 1 tab, Oral, every night at bedtime, # 90 tab, 3 Refill(s), Pharmacy: [facility] #93, 165, cm, 07/08/22 16:32:00 EST, Height/Length Dosing, 71.67, kg, 07/08/22 16:32:00 EST, Weight Dosing Start Date: 12/01/22 Status: Ordered venlafaxine 37.5 mg oral capsule, extended release 37.5 mg =, Oral, Daily, # 90 cap, 3 Refill(s), Pharmacy: [facility] #93, 165, cm, 07/08/22 16:32:00 EST, Height/Length Dosing, 71.67, kg, 07/08/22 16:32:00 EST, Weight Dosing Start Date: 12/01/22 Status: Ordered zinc oxide topical ointment 20 %, Topical, 0 Refill(s) Start Date: 05/11/22 Status: Ordered Problem List Condition Confirmation Course Effective Dates Status H ealth Status Informant Adrenal mass Confirmed Active ETOH abuse Confirmed Active Anemia Confirmed Active Atrial fibrillation Confirmed Active ADHD Confirmed Active Body mass index 30+ - obesity Confirmed Active Brachial plexus lesion Confirmed Active Bursitis Confirmed Active Cervical spondylosis Confirmed Active Chronic low back pain Confirmed Active Closed fracture of left orbital floor Confirmed Active Fall at home Confirmed Active Gastroesophageal reflux disease Confirmed Active History of operative procedure on knee Confirmed Active Hyperlipidemia Confirmed Active Hypertension Confirmed Active Head injury Confirmed Active Insomnia Confirmed Active Long-term current use of anticoagulant Confirmed Active Lower urinary tract symptoms due to benign prostatic hypertrophy Confirmed Active Lumbago co-occurrent with right-side sciatica Confirmed Active Lumbar spondylosis Confirmed Active Monoplegia Confirmed Active Multiple joint pain Confirmed Active Neck pain Confirmed Active Opioid abuse Confirmed Active Osteoarthritis of knee Confirmed Active Posttraumatic stress disorder Confirmed Active Prescribed medication regimen behavior finding Confirmed Active Serum albumin below reference range Confirmed Active Smoker Confirmed Active Type 2 diabetes mellitus Confirmed Active Procedures Procedure Date Related Diagnosis Body Site Status Excision of right adrenal gland 1 Completed 1right adreanal gland removed. Social History Social History Type Response Tobacco Current everyday tob acco user Tobacco Use:. 1.5 packs a day per day. Sex Patient Care team information Care Team Personnel Name: Delvis Dinero DO Position: Physician Member Role: Primary Care Physician Address: Address: [address] [place] [address] [place] Care Team Related Persons Name: ALEJANDRO PEGUERO Armaan Address: Home [address] [place], [place] [id number] [facility]
--- OUTSIDE RECORDS SUMMARY | 2023-04-21 18:46 | XMS_ITS | Continuity of Care Document ---
Author Name Unknown Organization [facility] Ambulatory Clinics Address [address] [place] [address] Care Team Providers Care Flatwork Finisher Name Role Phone Delvis Dinero DO Primary Care Physician [phone] Encounter [facility] NBR [id number] Date(s): 09/24/22 - 09/24/22 [facility] Ambulatory Clinics [address] [place] [address] [place] Discharge Disposition: Home Allergies, Adverse Reactions, Alerts Substance Reaction Severity Status morphine Unknown Active fluticasone unknown Unknown Active gabapentin unknown Unknown Active pregabalin unknown Unknown Active oxyCODONE Unknown Unknown Active Assessment and Plan Future Scheduled Tests Laboratory* Comprehensive Metabolic Panel 09/14/22 * Lipid Panel 09/14/22 Radiology* US Abdomen Limited 05/24/22 Medications Ambien 5 mg =, Oral, every [...] mg = 1 tab, Oral, BID, # 60 tab, 3 Refill(s), Pharmacy: [facility], 165, cm, 07/08/22 16:32:00 EST, Height/Length Dosing, 71.67, kg, 07/08/22 16:32:00 EST, Weight Dosing Start Date: 08/16/22 Status: Ordered furosemide 20 mg oral tablet 20 mg = 1 tab, Oral, Daily, # 30 tab, 0 Refill(s) Start Date: 05/11/22 Status: Ordered ipratropium-albuterol CFC free 20 mcg-100 mcg/inh inhalation aerosol 0 Refill(s) Start Date: 05/11/22 Status: Ordered lisinopril 2.5 mg oral tablet 2.5 mg = 1 tab, Oral, Daily, # 90 tab, 3 Refill(s), Pharmacy: [facility], 165, cm, 07/08/22 16:32:00 EST, Height/Length Dosing, 71.67, kg, 07/08/22 16:32:00 EST, Weight Dosing Start Date: 09/24/22 Stop Date: 09/19/23 Status: Ordered metoprolol succinate 50 mg oral capsule, extended release 50 mg = 1 cap, Oral, Daily, # 90 cap, 3 Refill(s), Pharmacy: [facility], 162.56, cm, 04/20/22 16:47:00 EDT, [...] ., # 180 tab, 3 Refill(s), Pharmacy: [facility], 165, cm, 07/08/22 16:32:00 EST, Height/Length Dosing, 71.67, kg, 07/08/22 16:32:00 EST, Weight Dosing Start Date: 09/24/22 Stop Date: 09/19/23 Status: Ordered oxyCODONE 5 mg oral tablet See Instructions, PRN as needed for pain, take 2 tabs by mouth every morning, then take 1 tab in the afternoon, and then 2 tabs every evening for pain, # 150 tab, 0 Refill(s), Pharmacy: [facility], 165, cm, 07/08/22 16:32:00 EST, Height/Length D... Start Date: 09/14/22 Status: Ordered simvastatin 20 mg oral tablet 20 mg = 1 tab, Oral, every night at bedtime, # 90 tab, 3 Refill(s), Pharmacy: [facility], 162.56, cm, 04/20/22 16:47:00 EDT, Height/Length Dosing, 79.38, kg, 04/20/22 16:47:00EDT, Weight Dosing Start Date: 04/26/22 Status: Ordered terazosin 2 mg oral capsule 2 mg =, Oral, Daily, # 90 cap, 3 Refill(s), Pharmacy: [facility], 165, cm, 07/08/22 16:32:00 EST, Height/Length Dosing, 71.67, kg, 07/08/22 16:32:00 EST, Weight Dosing Start Date: 09/24/22 Stop Date: 09/19/23 Status: Ordered traZODone 50 mg oral tablet 50 mg = 1 tab, Oral, Daily, # 90 tab, 0 Refill(s), Pharmacy: [facility] #93, 162.56, cm, 04/20/2216:47:00 EDT, Height/Length [...] Member Role: Primary Care Physician Address: Address: [address] [place] [phone] [place] Care Team Related Persons Name: ALEJANDRO PEGUERO Address: Home [address] [place], [place] [id number] [facility]
--- OUTSIDE RECORDS SUMMARY | 2023-04-21 18:46 | XMS_ITS | Continuity of Care Document ---
Author Name Unknown Organization [facility] Ambulatory Clinics Address [address] [place] [address] Care Team Providers Care Fans Clerk Name Role Phone Delvis Dinero DO Primary Care Physician Encounter [facility] NBR [id number] Date(s): 12/01/22 - 12/01/22 [facility] Ambulatory Clinics [address] [place], [place] [address] Discharge Disposition: Home or Self Care Attending Physician: Bren Campbell MD Referring Physician: Bren Campbell MD Allergies, Adverse Reactions, Alerts Substance Reaction Severity Status morphine Unknown Active fluticasone unknown Unknown Active gabapentin unknown Unknown Active pregabalin unknown Unknown Active oxyCODONE Unknown Unknown Active Assessment and Plan Future Scheduled Tests Laboratory* Comprehensive Metabolic Panel 09/14/22 * Lipid Panel 09/14/22 Radiology* US Abdomen Limited 05/24/22 Functional Status 12/01/22 Other exposure to Infectious Disease Non e Medications Albuterol (Eqv-ProAir HFA) 90 mcg/inh inhalation aerosol 2 puffs, Inhale, QID, PRN Air Hunger, # 8.5 g, 11 Refill(s), Pharmacy: [facility] #93, 165, cm, 07/08/22 16:32:00 EST, Height/Length Dosing, 71.67, kg, 07/08/22 16:32:00 EST, Weight Dosing Start Date: 12/01/22 Status: Ordered Ambien 5 mg oral tablet 5 mg =, Oral, every night at bedtime, PRN as needed, # 30 tab, 5 Refill(s), Pharmacy: [facility] #93, 165, cm, 07/08/22 16:32:00 EST, [...] bedtime, # 90 tab, 5 Refill(s), Pharmacy: [facility] #93, 165, cm, 07/08/22 16:32:00 EST, Height/Length Dosing, 71.67, kg, 07/08/22 16:32:00 EST, Weight Dosing Start Date: 12/01/22 Status: Ordered Stiolto Respimat 2.5 mcg-2.5 mcg/inh inhalation aerosol 2 puffs, Inhale, every 24 hr, # 4 g, 11 Refill(s), Pharmacy: [facility] #93, 165, cm, 07/08/22 16:32:00 EST, Height/Length Dosing, 71.67, kg, 07/08/22 16:32:00 EST, Weight Dosing Start Date: 12/01/22 Status: Ordered terazosin 2 mg oral capsule 2 mg =, Oral, Daily, # 90 cap, 3 Refill(s), Pharmacy: [facility], 165, cm, 07/08/22 16:32:00 EST, Height/Length Dosing, 71.67, kg, 07/08/22 16:32:00 EST, Weight Dosing Start Date: 09/24/22 Stop Date: 09/19/23 Status: Ordered traZODone 100 mg oral tablet 100 mg = 1 tab, Oral, every night at bedtime, # 90 tab, 3 Refill(s), Pharmacy: [facility] #93, 165, cm, 07/08/22 16:32:00 EST, Height/Length Dosing, 71.67, kg, 07/08/22 16:32:00 EST, Weight Dosing Start Date: 12/01/22 Status: Ordered venlafaxine 37.5 mg oral capsule, extended release 37.5 mg =, Oral, Daily, # 90 cap, 3 Refill(s), Pharmacy: [facility] #93, 165, cm, 07/08/22 16:32:00 EST, Height/Length [...] gland 1 Completed 1right adreanal gland removed. Vital Signs Most recent to oldest [Reference Range]: 1 Peripheral Pulse Rate [60-100 bpm] 76 bp m (12/01/22 12:55 PM) Blood Pressure [90-140/60-90 mmHg] 142/7 2mmHg *HI* (12/01/22 12:55 PM) Weight 73 kg (12/01/22 12:55 PM) Weight Measured (lbs) 160.937 lb (12/01/22 12:55 PM) Social History Social History Type Response Tobacco Current everyday tob acco user Tobacco Use:. 1.5 packs a day per day. Sex Physician Outpatient Note * Bren Campbell MD: PERFORM Event Display: Office Clinic Note Physician Authored Date: [id number] RED PEGUERO :1945 Age:77 years Sex:Male Visit Date:12/01/2022 Primary Care Physician: Delvis Dinero DO Chief Complaint medication follow up and broken ribs [facility] History of Present Illness ??Festus is a??77 year old White male who was seen at [facility] ED 11/21/22 after??he??lost his??balance??taking a step up to his shed and landed on a plywood platform injuing his right chestwall and right arm. He was found to have fractured his ribs. He is here for FU. He says the pain has lessened. We discussed his medications, labs,??diagnostics, and below mentioned active problems.?? Review of Systems Constitutional: He denies fever, chills, fatigue or unusual weight loss. Cardiovascular: ??He denies chest pain, palpitations or syncopal episodes.?? Respiratory: ??No dyspnea, no cough productive of phlegm, no orthopnea or hemoptysis. Gastrointestinal: ??No nausea, vomiting, diarrhea, or abdominal pain. No blood in his stool. Urologic: ??No urgency, dysuria, blood in his urine, or kidney stones. Musculoskeletal: ??No muscle weakness. Unremarkable. Neurological: No VENTURA, confusion, or dizziness; no numbness or tingling; no difficulty speaking or swallowing. Physical Exam Vitals & Measurements HR:??76??(Peripheral)?? BP:??142/72?? SpO2:??97%?? WT:??73??kg?? General: CGlasses. omfortable, showing no signs of acute distress. HEENT: PERRL, EOMI, Anicteric, No arcus senilis. OP clear, No upper teeth. Few lower teeth. No dentures. Hearing intact. No hearing aids.?? No facial asymmetry. Neck: Supple. No JVD. No carotid bruits. No cervical, submandibular or supraclavicular lymphadenopathy.?? No thyromegaly. Lungs: Clear. No wheezes, no rales, no rhonchi. Heart: Regular. No Murmurs, rubs or gallops. Chest: No use of accessory muscles in breathing.?? Abdomen: Soft, Nontender. Bowel sounds present. No scars. Back: No CVAT. No kyphosis. No scoliosis. Extremities: No pretibial/ankle edema. Palpable DP pulses BL. FROM. OA of hands. Skin: No rashes. Warm and dry. No jaundice. Multiple BLUE bruises. Neurologic: training associate 2-12 intact. Good strength BL U/L extremities. Ambulates w/o assist. No focal motoror?? sensory deficits. Psych: A&Ox3. Mood and affect appropriate. No unusual anxiety or evidence of depression. Assessment/Plan Ordered: Albuterol (Eqv-ProAir HFA) 90 mcg/inh inhalation aerosol, 2 puffs, Inhale, QID, PRN Air Hunger, # 8.5 g, 11 Refill(s), Pharmacy: [facility] #[facility], 165, cm, 07/08/22 16:32:00 EST, Height/Length Dosing, 71.67, kg, 07/08/22 16:32:00 EST, Weight Dosing Eliquis 5 mg oral tablet, 5 mg = 1 tab, Oral, BID, # 180 tab, 3 Refill(s), Pharmacy: [facility] #[facility], 165, cm, 07/08/22 16:32:00 EST, Height/Length Dosing, 71.67, kg, 07/08/22 16:32:00 EST, Weight Dosing diclofenac 1% topical gel, 4 g, Topical, QID, PRN pain, # 100 g, 11 Refill(s), Pharmacy: [facility] #[facility], 165, cm, 07/08/22 16:32:00 EST, Height/Length Dosing, 71.67, kg, 07/08/22 16:32:00 EST, Weight Dosing lisinopril 20 mg oral tablet, 20 mg = 1 tab, Oral, Daily, # 90 tab, 3 Refill(s), Pharmacy: [facility] #[facility], 165, cm, 07/08/22 16:32:00 EST, Height/Length Dosing, 71.67, kg, 07/08/22 16:32:00 EST, Weight Dosing metoprolol succinate 25 mg oral tablet, extended release, 25 mg = 1 tab, Oral, Daily, # 90 tab, 3 Refill(s), Pharmacy: [facility] #[facility], 165, cm, 07/08/22 16:32:00 EST, Height/Length Dosing, 71.67, kg, 07/08/22 16:32:00 EST, Weight Dosing omeprazole 20 mg oral delayed release capsule, 20 mg = 1 cap, Oral, Daily, # 90 cap, 3 Refill(s), Pharmacy: [facility] #[facility], 165, cm, 07/08/22 16:32:00 EST, Height/Length Dosing, 71.67, kg, 07/08/2315:32:00 EST, Weight Dosing simvastatin 20 mg oral tablet, 20 mg = 1 tab, Oral, every night at bedtime, # 90 tab, 5 Refill(s), Pharmacy: [facility] #[facility], 165, cm, 07/08/22 16:32:00 EST, Height/Length Dosing, 71.67, kg, 07/08/22 16:32:00 EST, Weight Dosing Stiolto Respimat 2.5 mcg-2.5 mcg/inh inhalation aerosol, 2 puffs, Inhale, every 24 hr, # 4 g, 11 Refill(s), Pharmacy: [facility] #[facility], 165, cm, 07/08/22 16:32:00 EST, Height/Length Dosing, 71.67, kg, 07/08/22 16:32:00 EST, Weight Dosing traZODone 100 mg oral tablet, 100 mg = 1 tab, Oral, every night at bedtime, # 90 tab, 3 Refill(s), Pharmacy: [facility] #[facility], 165, cm, 07/08/22 16:32:00 EST, Height/Length Dosing, 71.67, kg, 07/08/22 16:32:00 EST, Weight Dosing venlafaxine 37.5 mg oral capsule, extended release, 37.5 mg =, Oral, Daily, # 90 cap, 3 Refill(s), Pharmacy: [facility] #[facility], 165, cm, 07/08/22 16:32:00 EST, Height/Length Dosing, 71.67, kg, 07/08/22 16:32:00 EST, Weight Dosing Ambien 5 mg oral tablet, 5 mg =, Oral, every night at bedtime, PRN as needed, # 30 tab, 5 Refill(s), Pharmacy: [facility] #[facility], 165, cm, 07/08/22 16:32:00 EST, Height/Length Dosing, 71.67, kg, 07/08/22 16:32:00 EST, Weight Dosing ?? 1. Atrial fibrillation/Long-term current use of anticoagulant Metoprolol succinate 25mg daily Eliquis 5mg BID ?? 2. COPD Albuterol 2 puffs QID prn Stiolto 2 puffs daily ?? 3. Angina NTG 0.4mg SL prn ?? 4. Hypertension Lisinopril 20mg daily Metoprolol succinate 25mg daily Terazosin 2mg daily ?? 5. Hyperlipidemia Simvastatin 20 mg every night at bedtime ?? 6. Gastroesophageal reflux disease Omeprazole 20mg??Daily?? + B12 ?? 7. Lower urinary tract symptoms due to benign prostatic hypertrophy Terazosin 2mg daily ?? 8. Multiple joint pain diclofenac topical gel??QID prn ?? 9. Chronic low back pain oxycodone 5 mg? 10. Posttraumatic stress disorder Venlafaxine, 37.5 mg daily ?? 11. Insomnia Trazodone 100mg qhs Ambien 5mg qhs prn ?? 12. Smoker Strongly advised to quit smoking. Offered nicotine gum, patch, lozenges or Chantix. He declined ?? 13. ETOH abuse Quit alcohol 1992 ? Problem List/Past Medical History Ongoing ADHD Adrenal mass Anemia Atrial fibrillation Body mass index 30+ - obesity Brachial plexus lesion Bursitis Cervical spondylosis Chronic low back pain Closed fracture of left orbital floor ETOH abuse Fall at home Gastroesophageal reflux disease Head injury History of operative procedure on knee Hyperlipidemia Hypertension Insomnia Long-term current use of anticoagulant Lower urinary tract symptoms due to benign prostatic hypertrophy Lumbago co-occurrent with right-side sciatica Lumbar spondylosis Monoplegia Multiple joint pain Neck pain Opioid abuse Osteoarthritis of knee Posttraumatic stress disorder Prescribed medication regimen behavior finding Serum albumin below reference range Smoker Type 2 diabetes mellitus Historical No qualifying data Procedure/Surgical History ???Excision of right adrenal gland Medications Albuterol (Eqv-ProAir HFA) 90 mcg/inh inhalation aerosol, 2 puffs, Inhale, QID, PRN, 11 refills Ambien 5 mg oral tablet, 5 mg, Oral, every night at bedtime, PRN, 5 refills diclofenac 1% topical gel, 4 g, Topical, QID, PRN, 11 refills Eliquis 5 mg oral tablet, 5 mg= 1 tab, Oral, BID, 3 refills lisinopril 20 mg oral tablet, 20 mg= 1 tab, Oral, Daily, 3 refills metoprolol succinate 25 mg oral tablet, extended release, 25 mg= 1 tab, Oral, Daily, 3 refills multivitamin adult, oral tablet nitroglycerin 0.4 mg sublingual tablet omeprazole 20 mg oral delayed release capsule, 20 mg= 1 cap, Oral, Daily, 3 refills oxyCODONE 5 mg oral tablet, See Instructions, PRN simvastatin 20 mg oral tablet, 20 mg= 1 tab, Oral, every night at bedtime, 5 refills Stiolto Respimat 2.5 mcg-2.5 mcg/inh inhalation aerosol, 2 puffs, Inhale, every 24 hr, 11 refills terazosin 2 mg oral capsule, 2 mg, Oral, Daily, 3 refills traZODone 100 mg oral tablet, 100 mg= 1 tab, Oral, every night at bedtime, 3 refills venlafaxine 37.5 mg oral capsule, extended release, 37.5 mg, Oral, Daily, 3 refills zinc oxide topical ointment, 20 %, Topical Allergies fluticasone??(unknown) gabapentin??(unknown) morphine oxyCODONE??(Unknown) pregabalin??(unknown) Social History Alcohol Never Electronic Cigarette/Vaping Electronic Cigarette Use: Never. Substance Use Past, Marijuana Tobacco Current everyday tobacco user Tobacco Use:. 1.5 packs a day per day. Electronically Signed on 12/01/22 01:36 PM Bren Campbell MD Patient Care team information Care Team Personnel Name: Delvis Dinero DO Position: Physician Member Role: Primary Care Physician Address: Address: [address] [place] [id number] [place] Care Team Related Persons Name: ALEJANDRO PEGUERO Address: Home [address] [phone] [facility]
--- OUTSIDE RECORDS SUMMARY | 2023-04-21 18:46 | XMS_ITS | Continuity of Care Document ---
Author Name Unknown Organization [facility] Address [address] [place] [address] Care Team Providers Care Bit Bender Name Role Phone Delvis Dinero DO Primary Care Physician Encounter [facility] NBR [id number] Date(s): 12/25/22 - 12/25/22 [facility] [address] [place] [address] [place] Discharge Disposition: Home Allergies, Adverse Reactions, Alerts Substance Reaction Severity Status morphine Unknown Active fluticasone unknown Unknown Active venlafaxine 1 Moderate Active gabapentin unknown Unknown Active pregabalin unknown Unknown Active oxyCODONE Unknown Unknown Active 1HypoNatremia Assessment and Plan Future Scheduled Tests Laboratory* Comprehensive Metabolic Panel 09/14/22 * Lipid Panel 09/14/22 Radiology* US Abdomen Limited 05/24/22 Medications Albuterol (Eqv-ProAir HFA) 90 mcg/inh inhalation aerosol 2 puffs, Inhale, QID, PRN Air Hunger, # 8.5 g, 11 Refill(s), Pharmacy: [facility] #[facility], 165, cm, 07/08/22 16:32:00 EST, Height/Length Dosing, 71.67, kg, 07/08/22 16:32:00 EST, Weight Dosing Start Date: 12/01/22 Status: Ordered Ambien 5 mg oral tablet 5 mg =, Oral, every night at bedtime, PRN as needed, # 30 tab, 5 Refill(s), Pharmacy: [facility] #93, 165, cm, 07/08/22 16:32:00 EST, Height/Length Dosing, 71.67, kg, 07/08/22 16:32:00 EST, Weight Dosing Start Date: 12/01/22 Status: Ordered B-Complex with B-12 oral tablet 1 tab, Oral, Daily, # 100 tab, 3 Refill(s), Pharmacy: [facility], 162.4, cm, 12/14/22 15:53:00 EDT, Height/Length Dosing, 73, kg, 12/14/22 15:53:00 EDT, Weight Dosing Start Date: 12/17/22 Status: Ordered diclofenac 1% topical gel 4 [...] Weight Dosing Start Date: 12/01/22 Status: Ordered fluconazole 150 mg oral tablet 150 mg = 1 tab, Oral, Daily, # 7 tab, 1 Refill(s), Pharmacy: [facility], 162.4, cm, 12/14/22 15:53:00 EDT, Height/Length Dosing, 73, kg, 12/14/22 15:53:00 EDT, Weight Dosing Start Date: 12/17/22 Stop Date: 12/31/22 Status: Ordered ipratropium-albuterol CFC free 20 mcg-100 [...] # 90 cap, 3 Refill(s), Pharmacy: [facility], 165, cm, 07/08/22 16:32:00 EST, Height/Length Dosing, 71.67, kg, 07/08/22 16:32:00 EST, Weight Dosing Start Date: 12/01/22 Status: Ordered oxyCODONE 5 mg oral tablet See Instructions, PRN as needed for pain, oxyCODONE 5 mg oral tablet) take 2 tabs by mouth every morning, then take 1 tab in the afternoon, and then 2 tabs every evening for pain, # 150 tab, 0 Refill(s), Pharmacy: [facility], 165, cm, 07/08/22... Start Date: 12/08/22 Status: Ordered Propranolol Hydrochloride ER 120 mg oral capsule, extended release 120 mg = 1 cap, Oral, Daily, # 90 cap, 3 Refill(s), Pharmacy: [facility] #93, 162.4, cm, 12/14/2314:53:00 EDT, Height/Length Dosing, 73, kg, 12/14/22 15:53:00 EDT, Weight Dosing Start Date: 12/17/22 Status: Ordered simvastatin 20 mg oral tablet 20 mg = 1 tab, Oral, every night at bedtime, # 90 tab, 5 Refill(s), Pharmacy: [facility] #93, 165, cm, 07/08/22 16:32:00 EST, Height/Length Dosing, 71.67, kg, 07/08/22 16:32:00 EST, Weight Dosing Start Date: 12/01/22 Status: Ordered Stiolto Respimat 2.5 mcg-2.5 mcg/inh inhalation aerosol 2 puffs, Inhale, every 24 hr, # 4 g, 11 Refill(s), Pharmacy: [facility] #93, 165, cm, 07/08/22 16:32:00 EST, Height/Length Dosing, 71.67, kg, 07/08/22 16:32:00 EST, Weight Dosing Start Date: 12/01/22 Status: Ordered terazosin 2 mg oral capsule 2 mg =, Oral, Daily, # 90 cap, 3 Refill(s), Pharmacy: [facility], 165, cm, 07/08/22 16:32:00 EST, Height/Length Dosing, 71.67, kg, 07/08/22 16:32:00 EST, Weight Dosing Start Date: 09/24/22 Stop Date: 09/19/23 Status: Ordered traZODone 100 mg oral tablet 100 mg = 1 tab, Oral, every night at bedtime, # 90 tab, 3 Refill(s), Pharmacy: [facility] #93, 165, cm, 07/08/22 16:32:00 EST, Height/Length [...] Active Hyperlipidemia Confirmed Active Hypertension Confirmed Active Hyponatremia 1 Confirmed Active Head injury Confirmed Active Insomnia [...] Confirmed Active Posttraumatic stress disorder Confirmed Active Serum albumin below reference range Confirmed Active Smoker Confirmed Active Type 2 diabetes mellitus Confirmed Active 1Most likely due to Venlafaxine Procedures Procedure Date Related Diagnosis Body Site Status Excision of right adrenal gland 1 Completed 1right adreanal gland removed. Social History Social History Type Response Tobacco Current everyday tob acco user Tobacco Use:. 1.5 packs a day per day. Sex Patient Care team information Care Team Personnel Name: Delvis Dinero DO Position: Physician Member Role: Primary Care Physician Address: Address: [address] [place], [place] [id number] [place] Care Team Related Persons Name: ALEJANDRO PEGUERO Address: Home [address] [facility], [place] [id number] [facility]
--- OUTSIDE RECORDS SUMMARY | 2023-04-21 18:46 | XMS_ITS | Continuity of Care Document ---
Author Name Unknown Organization [facility] Amb[facility] Address [address] [place] [address] Care Team Providers Care Goldbeater Name Role Phone Camelia Phillip MD Primary Care Physician [phone] Encounter [facility] NBR [id number] Date(s): 04/30/22 - 04/30/22 [facility] [address] [place] [address] [place] Discharge Disposition: Home or Self Care Attending Physician: Gabriele Marshall DO Allergies, Adverse Reactions, Alerts Substance Reaction Severity Status morphine Unknown Active Assessment and Plan Future Appointments Future Scheduled Tests Radiology* US Abdomen Limited 04/30/22 Functional Status 04/30/22 Other exposure to Infectious Disease Non e Medications Ambien 5 mg =, 0 Refill(s) Start Date: 04/20/22 Status: Ordered Eliquis 5 mg oral tablet 5 mg = 1 tab, Oral, BID, MD appt 05/12/22, # 60 tab, 3 Refill(s), Pharmacy: [facility], 162.56, cm, 04/20/22 16:47:00 EDT, Height/Length Dosing, 79.38, kg, 04/20/22 16:47:00 EDT, Weight Dosing Start Date: 04/26/22 Status: Ordered METOPROLOL SUCC ER 50 MG TAB METOPROLOL SUCC ER 50 MG TAB, 0 Refill(s) Start Date: 04/20/22 Status: Ordered metoprolol succinate 50 mg oral capsule, extended release 50 mg = 1 cap, Oral, Daily, # 90 cap, 3 Refill(s), Pharmacy: [facility], 162.56, cm, 04/20/22 16:47:00 EDT, Height/Length Dosing, 79.38, kg, 04/20/22 16:47:00 EDT, Weight Dosing Start Date: 04/26/22 Status: Ordered nitroglycerin 0.4 mg sublingual tablet 0 Refill(s) Start Date: 04/20/22 Status: Ordered omeprazole 20 mg =, 0 Refill(s) Start Date: 04/20/22 Status: Ordered oxyCODONE 5 mg oral tablet See Instructions, Take 2 tablets in the morning, 1 tablet in the afternoon and 2 tablets in the evening for pain., # 150 tab, 0 Refill(s), Pharmacy: [facility] Start Date: 04/16/22 Status: Ordered simvastatin 20 mg oral tablet 20 mg = 1 tab, Oral, every night at bedtime, # 90 tab, 3 Refill(s), Pharmacy: [facility], 162.56, cm, 04/20/22 16:47:00 EDT, Height/Length Dosing, 79.38, kg, 04/20/22 16:47:00EDT, Weight Dosing Start Date: 04/26/22 Status: Ordered terazosin 2 mg =, Daily, 0 Refill(s) Start Date: 04/20/22 Status: Ordered traZODone 50 mg =, 0 Refill(s) Start Date: 04/20/22 Status: Ordered venlafaxine 37.5 mg =, 0 Refill(s) Start Date: 04/20/22 Status: Ordered Vital Signs Most recent to oldest [Reference Range]: 1 Temperature Tympanic [36.6-37.9 Deg C] 3 7.0 Deg C (04/30/22 3:10 PM) Peripheral Pulse Rate [60-100 bpm] 32 bp m *LOW* (04/30/22 3:10 PM) Blood Pressure [90-140/60-90 mmHg] 128/7 2mmHg (04/30/22 3:10 PM) Weight 78.3 kg (04/30/22 3:10 PM) Weight Measured (lbs) 172.622 lb (04/30/22 3:10 PM) Social History Social History Type Response Tobacco Never tobacco user T obacco Use:. Sex Patient Care team information Care Team Personnel Name: Camelia Phillip MD Position: Physician Member Role: Primary Care Physician Address: Address: [address] [place] [address]
--- OUTSIDE RECORDS SUMMARY | 2023-04-21 18:46 | XMS_ITS | Continuity of Care Document ---
Author Name Unknown Organization [facility] Amb[facility] Address [address] [place] [address] Care Team Providers Care Postal Carrier Name Role Phone Delvis Dinero DO Primary Care Physician [phone] Encounter [facility] NBR [id number] Date(s): 12/17/22 - 12/17/22 [facility] Ambulatory [facility] [address] [place], [place] [address] Encounter Diagnosis Anemia(Discharge Diagnosis) - 12/17/22 MIMI (acute kidney injury)(Discharge Diagnosis) - 12/17/22 Edema of penis(Discharge Diagnosis) - 12/17/22 Routine lab draw(Discharge Diagnosis) - 12/17/22 Discharge Disposition: Home or Self Care Attending Physician: Bren Campbell MD Allergies, Adverse Reactions, Alerts Substance Reaction Severity Status morphine Unknown Active fluticasone unknown Unknown Active venlafaxine 1 Moderate Active gabapentin unknown Unknown Active pregabalin unknown Unknown Active oxyCODONE Unknown Unknown Active 1HypoNatremia Assessment and Plan Future Scheduled Tests Laboratory* Comprehensive Metabolic Panel 09/14/22 * Lipid Panel 09/14/22 Radiology* US Abdomen Limited 05/24/22 Functional Status 12/17/22 Other exposure to Infectious Disease Non e Medications Albuterol (Eqv-ProAir HFA) 90 mcg/inh inhalation aerosol 2 puffs, Inhale, QID, PRN Air Hunger, # 8.5 g, 11 Refill(s), Pharmacy: [facility] #93, 165, cm, 07/08/22 16:32:00 EST, Height/Length [...] # 90 tab, 3 Refill(s), [facility]: [facility], 165, cm, 07/08/22 16:32:00 EST, Height/Length Dosing, [...] Daily, # 90 cap, 3 Refill(s), Pharmacy: [facility] #93, 165, cm, 07/08/22 16:32:00 EST, Height/Length [...] pain, # 150 tab, 0 Refill(s), Pharmacy: [facility] #93, 165, cm, 07/08/22... Start Date: 12/08/22 Status: Ordered Propranolol Hydrochloride ER 120 mg oral capsule, extended release 120 mg = 1 cap, Oral, Daily, # 90 cap, 3 Refill(s), Pharmacy: [facility] #93, 162.4, cm, 12/14/2314:53:00 EDT, Height/Length Dosing, 73, kg, 12/14/22 15:53:00 EDT, Weight Dosing Start Date: 12/17/22 Status: Ordered simvastatin 20 mg oral tablet 20 mg = 1 tab, Oral, every night at bedtime, # 90 tab, 5 Refill(s), Pharmacy: [facility] #93, 165, cm, 07/08/22 16:32:00 EST, Height/Length Dosing, 71.67, kg, 07/08/22 16:32:00 EST, Weight Dosing Start Date: 12/01/22 Status: Ordered Stiolto Respimat 2.5 mcg-2.5 mcg/inh inhalation aerosol 2 puffs, Inhale, every 24 hr, # 4 g, 11 Refill(s), Pharmacy: [facility] #93, 165, cm, 07/08/22 16:32:00 EST, Height/Length [...] bedtime, # 90 tab, 3 Refill(s), Pharmacy: [facility] #93, 165, cm, 07/08/22 16:32:00 EST, Height/Length [...] Range]: 1 Peripheral Pulse Rate [60-100 bpm] 87 bp m (12/17/22 2:25 PM) Blood Pressure [90-140/60-90 mmHg] 110/5 6mmHg (12/17/22 2:25 PM) Social History Social History Type Response Tobacco Current everyday tob acco user Tobacco Use:. 1.5 packs a day per day. Sex Physician Outpatient Note * Bren Campbell MD: PERFORM Event Display: Office Clinic Note Physician Authored Date: [id number] RED PEGUERO :1945 Age:77 years Sex:Male Visit Date:12/17/2022 Primary Care Physician: Delvis Dinero DO Chief Complaint ED follow up History of Present Illness ??Festus is a??77 year old White male who is here??for FU after ED visit 12/14/22 for swelling in the groin and penile region. He was discharged on Keflex to treat cellulitis and is here for FU.?His labs were significant for anemia, hyponatremia, and MIMI (likely due??to dehydration). He was given IVF in the ED. He says he has diabetes and it hasn't been checked for years, so we'll add it on to his labs today.He is here with his in a wheelchair. He would benefit from a scooter. He is going to check with the [facility] to get one that will go up the ramp to his house. Review of Systems Constitutional: He denies fever, [...] or swallowing. Physical Exam Vitals & Measurements HR:??87??(Peripheral)?? BP:??110/56?? SpO2:??95%?? General: Glasses. Comfortable, showing no signs of acute distress. HEENT: [...] use of accessory muscles in breathing.?? Abdomen: Obese. Soft, Nontender. Bowel sounds present. No scars. Groin and Genitals: Penis is still red and swollen w/ pain on foreskin retraction, erythema but no ulceration of groin. Back: No CVAT. No kyphosis. No scoliosis. Extremities: No pretibial/ankle edema. Palpable DP pulses BL. FROM. OA of hands. Skin: No rashes. Warm and dry. No jaundice. Multiple BLUE bruises. 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 Good strength BL U/L extremities. Ambulates w/o assist. No focal motoror?? sensory deficits. Psych: A&Ox3. Mood and affect appropriate. Assessment/Plan MIMI (acute kidney injury)??N17.9 repeat BUN/creat Ordered: Comprehensive Metabolic Panel, Blood, Routine, 12/17/22 8:23:00 EDT, Once, Lab Collect, MIMI (acute kidney injury) ?? Anemia??D64.9 Ordered: Iron Panel, Blood, Routine, 12/17/22 8:23:00 EDT, Once, Lab Collect, Anemia Vitamin B12 & Folate Level, Blood, Routine, 12/17/22 8:23:00 EDT, Once, Lab Collect, Anemia ?? Edema of penis??N48.89 Balanitis--pain with retraction of his foreskin Fluconazole 150mg daily Ordered: BNP, Blood, Routine, 12/17/22 8:23:00 EDT, Once, Lab Collect, Edema of penis ?? Routine lab draw??Z01.89 cbc, vit D, CMP, BNP, A1C Ordered: Vitamin D 25 Hydroxy Level, Blood, Routine, 12/17/22 8:23:00 EDT, Once, Lab Collect, Routine lab draw ?? Orders: fluconazole 150 mg oral tablet, 150 mg = 1 tab, Oral, Daily, # 7 tab, 1 Refill(s), Pharmacy: [facility], 162.4, cm, 12/14/22 15:53:00 EDT, Height/Length Dosing, 73, kg, 12/14/22 15:53:00 EDT, Weight Dosing B-Complex with B-12 oral tablet, 1 tab, Oral, Daily, # 100 tab, 3 Refill(s), Pharmacy: [facility], 162.4, cm, 12/14/22 15:53:00 EDT, Height/Length Dosing, 73, kg, 12/14/22 15:53:00 EDT, Weight Dosing Propranolol Hydrochloride ER 120 mg oral capsule, extended release, 120 mg = 1 cap, Oral, Daily, # 90 cap, 3 Refill(s), Pharmacy: [facility], 162.4, cm, 12/14/22 15:53:00 EDT, Height/Length Dosing, 73, kg, 12/14/22 15:53:00 EDT, Weight Dosing Hgb A1c, Blood, Routine, 12/17/22, Once, Lab Collect, Diabetes mellitus, type 2, Order for future visit ?? 1. Cellulitis/Balanitis groin--Zinc oxide ointment Complete Keflex 500mg QID Fluconazole 150mg daily x 7days ?? 2. Hyponatremia He Quit alcohol 1992 repeat CMP Likely due to Venlafaxine, much??less likely Lisinopril Stop Venlafaxine ?? 3. Atrial fibrillation/Long-term current use of anticoagulant Metoprolol succinate 25mg daily---change to Propranolol ER 60mg daily Eliquis 5mg BID ?? 4. COPD Albuterol 2 puffs QID prn Stiolto 2 puffs daily ?? 5. Angina NTG 0.4mg SL prn ?? 6. Hypertension Lisinopril 20mg daily Propranolol ER 60mg daily Terazosin 2mg daily ?? 7. Hyperlipidemia Simvastatin 20 mg every night at bedtime ?? 8. Gastroesophageal reflux disease Omeprazole 20mg??Daily?? +?? B complex with B12 ?? 9. Lower urinary tract symptoms due to benign prostatic hypertrophy Terazosin 2mg daily ?? 10. Multiple joint pain diclofenac topical gel??QID prn ?? 11. Chronic low back pain oxycodone 5 mg? 12. Posttraumatic stress disorder Venlafaxine 37.5 mg daily--->hyponatremia, change to Propranolol ER 60mg daily ?? 13. Insomnia Trazodone 100mg qhs Ambien 5mg qhs prn ?? 14. Smoker Strongly advised to quit smoking. Offered nicotine gum, patch, lozenges or Chantix. He declined ?? 15. ETOH abuse Quit alcohol 1992 Future Orders Hgb A1c, Blood, Routine, 12/17/22, Once, Lab Collect, Diabetes mellitus, type 2, Order for future visit Problem List/Past Medical History Ongoing ADHD Adrenal mass Anemia Atrial fibrillation Body mass index 30+ - obesity Brachial plexus lesion Bursitis Cervical spondylosis Chronic low back pain Closed fracture of left orbital floor ETOH abuse Fall at home Gastroesophageal reflux disease Head injury History of operative procedure on knee Hyperlipidemia Hypertension Hyponatremia Insomnia Long-term current use of anticoagulant Lower urinary tract symptoms due to benign prostatic hypertrophy Lumbago co-occurrent with right-side sciatica Lumbar spondylosis Monoplegia Multiple joint pain Neck pain Opioid abuse Osteoarthritis of knee Posttraumatic stress disorder Serum albumin below reference range Smoker Type 2 diabetes mellitus Procedure/Surgical History ???Excision of right adrenal gland Medications Albuterol (Eqv-ProAir HFA) 90 mcg/inh inhalation aerosol, 2 puffs, Inhale, QID, PRN, 11 refills Ambien 5 mg oral tablet, 5 mg, Oral, every night at bedtime, PRN, 5 refills B-Complex with B-12 oral tablet, 1 tab, Oral, Daily, 3 refills diclofenac 1% topical gel, 4 g, Topical, QID, PRN, 11 refills Eliquis 5 mg oral tablet, 5 mg= 1 tab, Oral, BID, 3 refills fluconazole 150 mg oral tablet, 150 mg= 1 tab, Oral, Daily, 1 refills ipratropium-albuterol CFC free 20 mcg-100 mcg/inh inhalation aerosol lisinopril 20 mg oral tablet, 20 mg= 1 tab, Oral, Daily, 3 refills metoprolol succinate 25 mg oral tablet, extended release, 25 mg= 1 tab, Oral, Daily, 3 refills multivitamin adult, oral tablet nitroglycerin 0.4 mg sublingual tablet omeprazole 20 mg oral delayed release capsule, 20 mg= 1 cap, Oral, Daily, 3 refills oxyCODONE 5 mg oral tablet, See Instructions, PRN Propranolol Hydrochloride ER 120 mg oral capsule, extended release, 120 mg= 1 cap, Oral, Daily, 3 refills simvastatin 20 mg oral tablet, 20 mg= 1 tab, Oral, every night at bedtime, 5 refills Stiolto Respimat 2.5 mcg-2.5 mcg/inh inhalation aerosol, 2 puffs, Inhale, every 24 hr, 11 refills terazosin 2 mg oral capsule, 2 mg, Oral, Daily, 3 refills traZODone 100 mg oral tablet, 100 mg= 1 tab, Oral, every night at bedtime, 3 refills zinc oxide topical ointment, 20 %, Topical Allergies venlafaxine fluticasone??(unknown) gabapentin??(unknown) morphine oxyCODONE??(Unknown) pregabalin??(unknown) Social History Alcohol Never Electronic Cigarette/Vaping Electronic Cigarette Use: Never. Substance Use Past, Marijuana Tobacco Current everyday tobacco user Tobacco Use:. 1.5 packs a day per day. Electronically Signed on 12/17/22 03:01 PM Bren Campbell MD Patient Care team information Care Team Personnel Name: Delvis Dinero DO Position: Physician Member Role: Primary Care Physician Address: Address: [address] [place] [id number] [place] Care Team Related Persons Name: ALEJANDRO PEGUERO Address: Home [address] [place], [place] [id number] [facility]
--- OUTSIDE RECORDS SUMMARY | 2023-04-21 18:46 | XMS_ITS | Continuity of Care Document ---
Author Name Unknown Organization [facility] Ambulatory [facility] Address [address] [place] [address] Care Team Providers Care Purchasing Department Clerk Name Role Phone Delvis Dinero DO Primary Care Physician Encounter [facility] NBR [id number] Date(s): 09/14/22 - 09/14/22 [facility] [address] [place] [address] [place] Encounter Diagnosis Atrial fibrillation(Discharge Diagnosis) - 09/14/22 Cervical spondylosis(Discharge Diagnosis) - 09/14/22 Chronic low back pain(Discharge Diagnosis) - 09/14/22 Essential hypertension(Discharge Diagnosis) - 09/14/22 Mixed hyperlipidemia(Discharge Diagnosis) - 09/14/22 Posttraumatic stress disorder(Discharge Diagnosis) - 09/14/22 Osteoarthritis of knee(Discharge Diagnosis) - 09/14/22 Discharge Disposition: Home or Self Care Attending Physician: Delvis Dinero DO Allergies, Adverse Reactions, Alerts Substance Reaction Severity Status morphine Unknown Active fluticasone unknown Unknown Active gabapentin unknown Unknown Active pregabalin unknown Unknown Active oxyCODONE Unknown Unknown Active Assessment and Plan Future Scheduled Tests Laboratory* Comprehensive Metabolic Panel 09/14/22 * Lipid Panel 09/14/22 Radiology* US Abdomen Limited 05/24/22 Functional Status 09/14/22 Other exposure to Infectious Disease Non e [...] BID, # 60 tab, 3 Refill(s), Pharmacy: [facility], 165, cm, 07/08/22 16:32:00 [...] Daily, # 90 cap, 3 Refill(s), Pharmacy: [facility], 162.56, cm, 04/20/22 16:47:00 EDT, Height/Length [...] tab, 3 Refill(s), Pharmacy: [facility], 162.56, cm, 04/20/22 16:47:00 EDT, Height/Length Dosing, 79.38, kg, 04/20/22 16:47:00EDT, Weight Dosing Start Date: 05/19/22 Stop Date: 05/14/23 Status: Ordered oxyCODONE 5 mg oral tablet See Instructions, PRN as needed for pain, take 2 tabs by mouth every morning, then take 1 tab in the afternoon, and then 2 tabs every evening for pain, # 150 tab, 0 Refill(s), Pharmacy: [facility], 165, cm, 07/08/22 16:32:00 EST, Height/Length D... Start Date: 09/14/22 Status: Ordered simvastatin 20 mg oral tablet 20 mg = 1 tab, Oral, every night at bedtime, # 90 tab, 3 Refill(s), Pharmacy: [facility], 162.56, cm, 04/20/22 16:47:00 EDT, Height/Length Dosing, 79.38, kg, 04/20/22 16:47:00EDT, Weight Dosing Start Date: 04/26/22 Status: Ordered terazosin 2 mg =, Daily, 0 Refill(s) Start Date: 04/20/22 Status: Ordered traZODone 50 mg oral tablet 50 mg = 1 tab, Oral, Daily, # 90 tab, 0 Refill(s), Pharmacy: [facility], 162.56, cm, 04/20/2216:47:00 EDT, Height/Length Dosing, [...] Range]: 1 Peripheral Pulse Rate [60-100 bpm] 78 bp m (09/14/22 1:31 PM) Blood Pressure [90-140/60-90 mmHg] 142/9 0mmHg *HI* (09/14/22 1:31 PM) Weight 77.3 kg (09/14/22 1:31 PM) Weight Measured (lbs) 170.417 lb (09/14/22 1:31 PM) Social History Social History Type Response Tobacco Current everyday tob acco user Tobacco Use:. 1.5 packs a day per day. Sex Hospital Discharge Instructions Follow Up Care 06/11/2022 09:33:11 With:Delvis Dinero DO Address: [address] [place] [id number] When:3 Months Physician Outpatient Note * Delvis Dinero DO: PERFORM Event Display: Office Clinic Note Physician Authored Date: [id number] RED PEGUERO :1945 Age:76 years Sex:Male Visit Date:09/14/2022 Primary Care Physician: Delvis Dinero DO Chief Complaint chronic care follow up - lower back pain and left knee has been giving patient lots of problems ?? Patient must sign CSA consent and contract for Oxycodone History of Present Illness Patient is a 76-year-old male who comes in today for a follow-up. ??He is a previous patient of .?? He says overall he is doing okay. Musculoskeletal:??Continues to struggle with his back/knee and hip pain.?? Analgesics help him remain functional.?? Had some difficulty??missing some meds??in the past. ??We discussed the importance of securing the medications in a locked??safe.?? We also discussed the importance of??risks versus benefits??of opiate medications. ??We also discussed??the??difficulty with dependence and??tolerance.?? Patient says that??the medications help him be functional. Cardiovascular: Taking his medication as prescribed.?? Feels that he is doing okay from a cardiac standpoint. Pulmonary: Taking his medication as prescribed. ??He feels that his breathing is at baseline. Review of Systems See HPI otherwise negative. Physical Exam Vitals & Measurements HR:??78??(Peripheral)?? BP:??142/90?? SpO2:??98%?? WT:??77.3??kg?? General: Alert and oriented, well nourished,?No??acute distress Lungs: Clear to auscultation and percussion,?Non-labored?? respiration Heart:?Normal?? rate,?Regular??rhythm,?No??murmur,?No??gallop,?No??edema Abdomen: Soft, non-tender, non-distended,?Normal?? bowel sounds,?No??masses Musculoskeletal:?Normal?? range of motion and strength,?No??tenderness,?No??swelling Assessment/Plan 1.??Atrial fibrillation??I48.91 Rate is reasonably well controlled. ??We will continue current regimen. ?? 2.??Cervical spondylosis??M47.892 Using analgesics as prescribed. ??Help him remain functional. ?? 3.??Chronic low back pain??M54.50 ?? 4.??Osteoarthritis of knee??M17.10 ?? 5.??Essential hypertension??I10 Blood pressure is borderline. ??We will continue current regimen. Ordered: Comprehensive Metabolic Panel, Blood, Routine, 09/14/22, Once, Lab Collect, Essential hypertension Mixed hyperlipidemia, Order for future visit Lipid Panel, Blood, Routine, 09/14/22, Once, Lab Collect, Essential hypertension Mixed hyperlipidemia, Order for future visit ?? 6.??Mixed hyperlipidemia??E78.2 Continue current regimen. Ordered: Comprehensive Metabolic Panel, Blood, Routine, 09/14/22, Once, Lab Collect, Essential hypertension Mixed hyperlipidemia, Order for future visit Lipid Panel, Blood, Routine, 09/14/22, Once, Lab Collect, Essential hypertension Mixed hyperlipidemia, Order for future visit ?? 7.??Posttraumatic stress disorder??F43.10 Symptoms are reasonably well controlled. ??We will continue current regimen. ?? Orders: oxyCODONE 5 mg oral tablet, See Instructions, PRN as needed for pain, take 2 tabs by mouth every morning, then take 1 tab in the afternoon, and then 2 tabs every evening for pain, # 150 tab, 0 Refill(s), Pharmacy: [facility], 165, cm, 07/08/22 16:32:00 EST, Height/Length D... Future Orders Comprehensive Metabolic Panel, Blood, Routine, 09/14/22, Once, Lab Collect, Essential hypertension Mixed hyperlipidemia, Order for future visit Lipid Panel, Blood, Routine, 09/14/22, Once, Lab Collect, Essential hypertension Mixed hyperlipidemia, Order for future visit Follow Up Instructions With When Contact Information Delvis Dinero, DO Within 3 Months [address] [place] [address] Additional Instructions: Problem List/Past Medical History Ongoing Adrenal mass Anemia Atrial fibrillation Benign prostatic hyperplasia Body mass index 30+ - obesity Cervical spondylosis Chest wall contusion Chronic low back pain Closed fracture of left orbital floor Essential hypertension Fall at home Gastroesophageal reflux disease Head injury History of operative procedure on knee Insomnia Lumbago co-occurrent with right-side sciatica Lumbar spondylosis Mixed hyperlipidemia Multiple joint pain Neck pain Osteoarthritis of knee Posttraumatic stress disorder Prescribed medication regimen behavior finding Serum albumin below reference range Smoker Historical No qualifying data Procedure/Surgical History ???Excision of right adrenal gland Medications Ambien, 5 mg, Oral, every night at bedtime, PRN atorvastatin 10 mg oral tablet, 10 mg= 1 tab, Oral, Daily diclofenac 3% topical gel, 1 %, Topical Durable Medical Equipment, See instructions Eliquis 5 mg oral tablet, 5 mg= 1 tab, Oral, BID, 3 refills furosemide 20 mg oral tablet, 20 mg= 1 tab, Oral, Daily ipratropium-albuterol CFC free 20 mcg-100 mcg/inh inhalation aerosol lisinopril 2.5 mg oral tablet, 2.5 mg= 1 tab, Oral, Daily metoprolol succinate 50 mg oral capsule, extended release, 50 mg= 1 cap, Oral, Daily, 3 refills multivitamin adult, oral tablet nitroglycerin 0.4 mg sublingual tablet omeprazole 20 mg oral delayed release tablet, 20 mg, Oral, BID, 3 refills oxyCODONE 5 mg oral tablet, See Instructions, PRN simvastatin 20 mg oral tablet, 20 mg= 1 tab, Oral, every night at bedtime, 3 refills terazosin, 2 mg, Daily traZODone 50 mg oral tablet, 50 mg= 1 tab, Oral, Daily venlafaxine, 37.5 mg zinc oxide topical ointment, 20 %, Topical Allergies fluticasone??(unknown) gabapentin??(unknown) morphine oxyCODONE??(Unknown) pregabalin??(unknown) Social History Alcohol Never Electronic Cigarette/Vaping Electronic Cigarette Use: Never. Substance Use Past, Marijuana Tobacco Current everyday tobacco user Tobacco Use:. 1.5 packs a day per day. Electronically Signed on 09/14/22 04:42 PM Delvis Dinero DO Patient Care team information Care Team Personnel Name: Delvis Dinero DO Position: Physician Member Role: Primary Care Physician Address: Address: [address] [place] [phone] [place] Care Team Related Persons Name: ALEJANDRO PEGUERO Address: Home [address] [place], [place] [id number] [facility]
--- OUTSIDE RECORDS SUMMARY | 2023-04-21 18:46 | XMS_ITS | Continuity of Care Document ---
Author Name Unknown Organization [facility] Address [address] [place] [address] Care Team Providers Care Internal Affairs Commander Name Role Phone Camelia Phillip MD Primary Care Physician Encounter [facility] [id number] Date(s): 04/20/22 - 04/20/22 [facility] [address] [place] [address] Encounter Diagnosis Skin tear of upper extremity(Discharge Diagnosis) - 04/20/22 Discharge Disposition: Home or Self Care Attending Physician: Johan Lerner MD Admitting Physician: Johan Lerner MD Allergies, Adverse Reactions, Alerts Substance Reaction Severity Status morphine Unknown Active Functional Status 04/20/22 Family Member Travel History No recent t ravel Recent Travel History No recent travel Other exposure to Infectious Disease Non e Medications Ambien 0 Refill(s) Start Date: 04/20/22 Status: Ordered Eliquis 5 mg oral tablet 5 mg = 1 tab, Oral, BID, MD appt 05/12/22, # 60 tab, 2 Refill(s), Pharmacy: [facility] Start Date: 04/12/22 Stop Date: 07/11/22 Status: Ordered METOPROLOL SUCC ER 50 MG TAB METOPROLOL SUCC ER 50 MG TAB, 0 Refill(s) Start Date: 04/20/22 Status: Ordered nitroglycerin 0.4 mg sublingual tablet 0 Refill(s) Start Date: 04/20/22 Status: Ordered omeprazole 0 Refill(s) Start Date: 04/20/22 Status: Ordered oxyCODONE 5 mg oral tablet See Instructions, Take 2 tablets in the morning, 1 tablet in the afternoon and 2 tablets in the evening for pain., # 150 tab, 0 Refill(s), Pharmacy: [facility] Start Date: 04/16/22 Status: Ordered simvastatin 0 Refill(s) Start Date: 04/20/22 Status: Ordered terazosin 2 mg =, Daily, 0 Refill(s) Start Date: 04/20/22 Status: Ordered traZODone 0 Refill(s) Start Date: 04/20/22 Status: Ordered venlafaxine 0 Refill(s) Start Date: 04/20/22 Status: Ordered Vital Signs Most recent to oldest [Reference Range]: 1 Temperature Tympanic [36.6-37.9 Deg C] 3 7.0 Deg C (04/20/22 4:03 PM) Peripheral Pulse Rate [60-100 bpm] 84 bp m (04/20/22 4:03 PM) Blood Pressure [90-140/60-90 mmHg] 132/9 0mmHg (04/20/22 4:03 PM) Weight 79.38 kg (04/20/22 4:03 PM) Weight Dosing 79.38 kg (04/20/22 4:47 PM) Height 162.560 cm (04/20/22 4:03 PM) Height/Length Dosing 162.560 cm (04/20/22 4:47 PM) Body Mass Index 30.000 kg/m2 (04/20/22 4:03 PM) Social History Social History Type Response Tobacco Never tobacco user T obacco Use:. Sex Hospital Discharge Instructions Patient Education 04/20/2022 15:59:19 Nonsutured Laceration Care Nonsutured Laceration Care A laceration is a cut that may go through all layers of the skin and into the tissue that is right under the skin. A laceration is usually stitched up (sutured) or closed with adhesive strips or skin glue shortly after the injury happens. However, if the wound is dirty or if several hours pass before medical treatment is provided, it is likely that bacteria will enter the wound. Closing a laceration after bacteria have entered it increases the risk for infection. In these cases, your health care provider may leave the laceration open (nonsutured) and cover it with a bandage (dressing). This type of treatment helps prevent infection and allows the wound to heal from the deepest layer of tissue damage up tothe surface. Nonsutured healing is also known as secondary wound healing. This is more common for wounds that involve loss of tissue, are irregular in shape and size, or are on surfaces of the body where movementmakes sutures or other closure methods impossible. How to care for your nonsutured laceration Follow instructions from your health care provider about how to take care of your wound. ??? Keep the wound clean and dry. ??? Change any dressings as told by your health care provider. This includes changing the dressing when it starts to smell, or when it gets wet or dirty. ??? Clean the wound one time each day, or as often as told by your health care provider. To clean your wound: 1. Wash your hands with soap and water for at least 20 seconds before and after touching your woundor changing your dressing. If soap and water are not available, use hand examiner rating clerk. 2. Remove any dressing as told by your health care provider. 3. Clean the wound with water or irrigation solution as told by your health care provider. 4. Pat the wound dry with a clean towel. Do not rub the wound. 5. Apply a thin layer of antibiotic ointment or another topical ointment to the wound as told by your health care provider. This will prevent infection and keep the dressing from sticking to the wound. 6. Apply a new dressing as told by your health care provider. ??? Check your wound every day for signs of infection. Watch for: ??? More redness, swelling, or pain. ??? Fluid or blood. ??? Warmth. ??? Pus or a bad smell. ??? Do not take baths, swim, or do anything that puts your wound underwater until your health care provider approves. ??? Do not scratch or pick at the wound. ??? Do not usedisinfectants or antiseptics, such as rubbing alcohol, to clean your wound unless told by your health care provider. Follow these instructions at home: Medicines ??? Take [id number] and prescription medicines only as told by your health care provider. ??? If you were prescribed an antibiotic medicine, take or apply it as told by your health care provider. Do not stop using the antibiotic even if your condition improves. Managing pain and swelling ??? If directed, put ice on the injured [...] greater risk of damage to the area. ??? Raise (elevate) the injured area above the level of your heart while you are sitting or lying down. General instructions ??? Avoid any activity that could cause your laceration to reopen. ??? Keep all follow-up visits. This is important. Contact a health care provider if: ??? You received a tetanus shot and you have swelling, severe pain, redness, or bleeding at the injection site. ??? Your pain is not controlled with medicine. ??? You have any of these signs of infection: ??? More redness, swelling, or pain around your wound. ??? Fluid or blood coming from your wound. ??? Warmth coming from your wound. ??? Pus or a bad smell coming from your wound. ??? A fever. ??? You notice something coming out of the wound, such as wood or glass. ??? You notice a change in the color of your skin near your wound. ??? You develop a new rash. ??? You need to change the dressing often. ??? You develop numbness around your wound. Get help right away if: ??? Your pain suddenly increases and is severe. ??? You develop severe swelling around the wound. ??? The wound is on your hand or foot, and you cannot properly move a finger or toe. ??? The wound is on your hand or foot, and you notice that your fingers or toes look pale or bluish. ??? You have a red streak going away from your wound. ??? You develop painful lumps near the wound or on skin anywhere else on your body. Summary ??? A laceration is a cut that may go through all layers of the skin and into the tissue that is right under the skin. It is usually closed with stitches, tape, or skin glue shortly after the injury happens. ??? If a wound is dirty or if several hours pass before medical treatment is provided, the laceration may be kept open (nonsutured) and covered with a bandage. ??? Nonsutured laceration helps prevent infection and allows the wound to heal from the deepest layer of tissue damage up to the surface. ??? Follow instructions from your health care provider about how to take care of your wound. This information is not intended to replace advice given to you by your health care provider. Make sure you discuss any questions you have with your health care provider. Document Revised: 08/13/2021 Document Reviewed: 08/13/2021 [employer] Patient Education ?? 2021 [employer] Follow Up Care 04/20/2022 16:03:33 With:Follow up with primary care provider Address: When:1 to 2 weeks Patient Care team information Personnel Name: Camelia Phillip MD Address: Address: [address] [place] [id number]
--- OUTSIDE RECORDS SUMMARY | 2023-04-21 18:46 | XMS_ITS | Continuity of Care Document ---
Author Name Unknown Organization [facility] Address [address] [place] [id number] Care Team Providers Care Java Developer Name Role Phone Delvis Dinero DO Primary Care Physician Encounter LTTL_MI FIN NBR [id number] Date(s): 12/14/22 - 12/14/[address] [id number] Encounter Diagnosis Tinea(Discharge Diagnosis) - 12/14/22 Cellulitis(Discharge Diagnosis) - 12/14/22 Dehydration(Discharge Diagnosis) - 12/14/22 Discharge Disposition: Home f/u Internal Provider Attending Physician: Johan Lerner MD Admitting Physician: [...] Hunger, # 8.5 g, 11 Refill(s), [facility]: [facility], 165, cm, 07/08/22 16:32:00 EST, Height/Length Dosing, 71.67, kg, 07/08/22 16:32:00 EST, Weight Dosing Start Date: 12/01/22 Status: Ordered Ambien 5 mg oral tablet 5 mg =, Oral, every night at bedtime, PRN as needed, # 30 tab, 5 Refill(s), [facility]: [facility], 165, cm, 07/08/22 16:32:00 EST, Height/Length Dosing, 71.67, kg, 07/08/22 16:32:00 EST, Weight Dosing Start Date: 12/01/22 Status: Ordered cephalexin 500 mg oral capsule 500 mg = 1 cap, Oral, QID, X 7 days, # 28 cap, 0 Refill(s), 12/21/22 17:43:00 EDT, [facility]acy: [facility], 162.4, cm, 12/14/22 15:53:00 EDT, Height/Length Dosing, 73, kg, 12/14/22 15:53:00 EDT, Weight Dosing Start Date: 12/14/22 Stop Date: 12/21/22 Status: Ordered diclofenac 1% topical gel 4 [...] Daily, # 90 cap, 3 Refill(s), [facility]: [facility], 165, [...] pain, # 150 tab, 0 Refill(s), Pharmacy: [facility], 165, cm, 07/08/22... Start Date: 12/08/22 Status: Ordered simvastatin 20 mg oral tablet 20 mg = 1 tab, Oral, every night at bedtime, # 90 tab, 5 Refill(s), [facility]: [facility], 165, cm, 07/08/22 16:32:00 EST, Height/Length Dosing, 71.67, kg, 07/08/22 16:32:00 EST, Weight Dosing Start Date: 12/01/22 Status: Ordered Stiolto Respimat 2.5 mcg-2.5 mcg/inh inhalation aerosol 2 puffs, Inhale, every 24 hr, # 4 g, 11 Refill(s), [facility]: [facility], 165, cm, 07/08/22 16:32:00 EST, Height/Length Dosing, 71.67, kg, 07/08/22 16:32:00 EST, Weight Dosing Start Date: 12/01/22 Status: Ordered terazosin 2 mg oral capsule 2 mg =, Oral, Daily, # 90 cap, 3 Refill(s), Pharmacy: [facility], 165, cm, 07/08/22 16:32:00 EST, Height/Length Dosing, 71.67, kg, 07/08/22 16:32:00 EST, Weight Dosing Start Date: 09/24/22 Stop Date: 09/19/23 Status: Ordered traZODone 100 mg oral tablet 100 mg = 1 tab, Oral, every night at bedtime, # 90 tab, 3 Refill(s), Pharmacy: [facility], 165, cm, 07/08/22 16:32:00 EST, Height/Length Dosing, 71.67, kg, 07/08/22 16:32:00 EST, Weight Dosing Start Date: 12/01/22 Status: Ordered venlafaxine 37.5 mg oral capsule, extended release 37.5 mg =, Oral, Daily, # 90 cap, 3 Refill(s), Pharmacy: [facility], 165, cm, 07/08/22 16:32:00 EST, Height/Length Dosing, 71.67, kg, 07/08/22 16:32:00 EST, Weight Dosing Start Date: 12/01/22 Status: Ordered zinc oxide topical ointment 20 %, Topical, 0 Refill(s) Start Date: 05/11/22 Status: Ordered Mental Status 12/14/22 Eye Opening Response [place] Spontaneous ly Best Verbal Response Gracie Oriented Best Motor Response Gracie Obeys comman ds [place] Coma Score 15 Problem List Condition Confirmation [...] gland removed. Results Laboratory List Name Date Urinalysis with Micro if Indicated and C ulture if Indicated 12/14/22 CBC w/ Diff 12/14/22 Comprehensive Metabolic Panel (CMP) 12/14 Automated Diff 12/14/22 Most recent to oldest [Reference Range]: 1 WBC [4.8-10.8 K/mcL] 10.7 K/mcL (12/14/22 4:10 PM) RBC [4.20-6.10 Million/mcL] 3.31 Million /mcL *LOW* (12/14/22 4:10 PM) Neutro Auto [42.2-75.2 %] 68.5 % (12/14/22 4:10 PM) Lymph Auto [20.5-51.1 %] 20.7 % (12/14/22 4:10 PM) Glacier Auto [1.7-9.3 %] 9.4 % *HI* (12/14/22 4:10 PM) Basophil Auto [0.0-0.8 %] 0.5 % (12/14/22 4:10 PM) BUN [8-26 mg/dL] 42 mg/dL *HI* (12/14/22 4:10 PM) UA Color [Yellow] Yellow (12/14/22 4:30 PM) Glucose Level [74-106 mg/dL] 118 mg/dL *HI* (12/14/22 4:10 PM) Potassium Level [3.5-5.1 mmol/L] 4.4 mmo l/L (12/14/22 4:10 PM) Baso Absolute [0.0-0.2 K/mcL] 0.0 K/mcL (12/14/22 4:10 PM) MCV [80.0-94.0 fL] 97.0 fL *HI* (12/14/22 4:10 PM) UA Urobilinogen [0.2] 0.2 (12/14/22 4:30 PM) UA Bili [Negative] Negative (12/14/22 4:30 PM) UA Ketones [Negative] Negative (12/14/22 4:30 PM) AST [15-41 IntlUnit/L] 35 IntlUnit/L (12/14/22 4:10 PM) ALT [17-63 IntlUnit/L] 17 IntlUnit/L (12/14/22 4:10 PM) MCHC [32.0-36.0 g/dL] 32.4 g/dL (12/14/22 4:10 PM) Osmolality [275-295 mOsm/kg] 269 mOsm/kg *LOW* (12/14/22 4:10 PM) Sodium Level [134-143 mmol/L] 128 mmol/L *LOW* (12/14/22 4:10 PM) UA Leuk Est [Negative] Negative (12/14/22 4:30 PM) Lymph Absolute [1.2-3.4 K/mcL] 2.2 K/mcL (12/14/22 4:10 PM) UA Nitrite [Negative] Negative (12/14/22 4:30 PM) UA Glucose [Negative] Negative (12/14/22 4:30 PM) Hct [42.0-52.0 %] 32.1 % *LOW* (12/14/22 4:10 PM) Calcium Level [8.9-10.3 mg/dL] 9.0 mg/dL (12/14/22 4:10 PM) Glacier Absolute [0.1-0.6 K/mcL] 1.0 K/mcL *HI* (12/14/22 4:10 PM) Albumin Level [3.5-5.0 g/dL] 3.2 g/dL *LOW* (12/14/22 4:10 PM) Protein Total [6.5-8.1 g/dL] 7.0 g/dL (12/14/22 4:10 PM) UA Protein [Negative] Negative (12/14/22 4:30 PM) MCH [27.0-31.0 pg] 31.4 pg *HI* (12/14/22 4:10 PM) Neutro Absolute [1.4-6.5 K/mcL] 7.3 K/mc L *HI* (12/14/22 4:10 PM) Bilirubin Total [0.2-1.2 mg/dL] 0.6 mg/d L (12/14/22 4:10 PM) Hgb [14.0-18.0 g/dL] 10.4 g/dL *LOW* (12/14/22 4:10 PM) Alk Phos [38-130 IntlUnit/L] 110 IntlUni t/L (12/14/22 4:10 PM) UA Blood [Negative] Negative (12/14/22 4:30 PM) MPV [7.4-10.4 fL] 8.8 fL (12/14/22 4:10 PM) UA Spec Grav 1.025 *NA* (12/14/22 4:30 PM) Platelets [130-400 K/mcL] 328 K/mcL (12/14/22 4:10 PM) CO2 [22-32 mmol/L] 22 mmol/L (12/14/22 4:10 PM) Eos Absolute [0.0-0.2 K/mcL] 0.1 K/mcL (12/14/22 4:10 PM) UA pH 5.00 *NA* (12/14/22 4:30 PM) UA Appear [Clear] Clear (12/14/22 4:30 PM) Chloride Level [98-111 mmol/L] 96 mmol/L *LOW* (12/14/22 4:10 PM) RDW-CV [11.5-14.5 %] 14.0 % (12/14/22 4:10 PM) A/G Ratio 0.8 *NA* (12/14/22 4:10 PM) BUN/Creat Ratio [8.0-20.0] 19.3 (12/14/22 4:10 PM) Globulin 3.8 *NA* (12/14/22 4:10 PM) Imm Gran Absolute 0.03 *NA* (12/14/22 4:10 PM) Imm Gran Auto [0.0-0.5 %] 0.3 % (12/14/22 4:10 PM) Slide Review Not Indicated (12/14/22 4:10 PM) Urine Srce Clean Catch (12/14/22 4:30 PM) Creatinine Level [0.61-1.24 mg/dL] 2.18 mg/dL *HI* (12/14/22 4:10 PM) Anion Gap [3.0-12.0] 10.0 (12/14/22 4:10 PM) Eos, Auto [0.00-3.00 %] 0.60 % (12/14/22 4:10 PM) eGFR CKD-EPI [>=60 mL/min/1.73 m2] 31 mL /min/1.73 m2 *LOW* (12/14/22 4:10 PM) Vital Signs Most recent to oldest [Reference Range]: 1 2 Temperature Tympanic [36.6-37.9 Deg C] 3 6.7 Deg C (12/14/22 3:36 PM) Peripheral Pulse Rate [60-100 bpm] 92 bp m (12/14/22 5:22 PM) 86 bpm (12/14/22 3:36 PM) Respiratory Rate [12-24 br/min] 20 br/mi n (12/14/22:22 PM) 20 br/min (12/14/22 3:36 PM) Blood Pressure [90-140/60-90 mmHg] 103/6 7mmHg (12/14/22: PM) 117/74mmHg (12/14/22 3:36 PM) Weight 73.00 kg (12/14/22 3:36 PM) Weight Dosing 73.00 kg (12/14/22 3:53 PM) Height 162.400 cm (12/14/22 3:36 PM) Height/Length Dosing 162.400 cm (12/14/22 3:53 PM) Body Mass Index 28.000 kg/m2 (12/14/22 3:36 PM) Social History Social History Type Response Tobacco Current everyday tob acco user Tobacco Use:. 1.5 packs a day per day. Sex Hospital Discharge Instructions Patient Education 12/14/2022 16:44:53 Cellulitis, Adult Cellulitis, Adult Cellulitis is a skin infection. The infected area is usually warm, red, swollen, and tender. This condition occurs most often in the arms and lower legs. The infection can travel to the muscles, blood, and underlying tissue and become serious. It is very important to get treated for this condition. What are the causes? Cellulitis is caused by bacteria. The bacteria enter through a break in the skin, such as a cut, burn, insect bite, open sore, or crack. What increases the risk? This condition is more likely to occur in people who: ??? Have a weak body defense system (immune system). ??? Have open wounds on the skin, such as cuts, robles, bites, and scrapes. Bacteria can enter the body through these open wounds. ??? Are older than 60 years of age. ??? Have diabetes. ??? Have a type of long-lasting (chronic) liver disease (cirrhosis) or kidney disease. ??? Are obese. ??? Have a skin condition such as: ??? Itchy rash (eczema). ??? Slow movement of blood in the veins (venous stasis). ??? Fluid buildup below the skin (edema). ??? Have had radiation therapy. ??? Use IV drugs. What are the signs or symptoms? Symptoms of this condition include: ??? Redness, streaking, or spotting on the skin. ??? Swollen area of the skin. ??? Tenderness or pain when an area of the skin is touched. ??? Warm skin. ??? A fever. ??? Chills. ??? Blisters. How is this diagnosed? This condition is diagnosed based on a medical history and physical exam. You may also have tests, including: ??? Blood tests. ??? Imaging tests. How is this treated? Treatment for this condition may include: ??? Medicines, such as antibiotic medicines or medicines to treat allergies (antihistamines). ??? Supportive care, such as rest and application of cold or warm cloths (compresses) to the skin. ??? Hospital care, if the condition is severe. The infection usually starts to get better within 1???2 days of treatment. Follow these instructions at home: Medicines ??? Take [id number] and prescription medicines only as told by your health care provider. ??? If you were prescribed an antibiotic medicine, take it as told by your health care provider. Donot stop taking the antibiotic even if you start to feel better. General instructions ??? Drink enough fluid to keep your urine pale yellow. ??? Do not touch or rub the infected area. ??? Raise (elevate) the infected area above the level of your heart while you are sitting or lying down. ??? Apply warm or cold compresses to the affected area as told by your health care provider. ??? Keep all follow-up visits as told by your health care provider. This is important. These visitslet your health care provider make sure a more serious infection is not developing. Contact a health care provider if: ??? You have a fever. ??? Your symptoms do not begin to improve within 1???2 days of starting treatment. ??? Your bone or joint underneath the infected area becomes painful after the skin has healed. ??? Your infection returns in the same area or another area. ??? You notice a swollen bump in the infected area. ??? You develop new symptoms. ??? You have a general ill feeling (malaise) with muscle aches and pains. Get help right away if: ??? Your symptoms get worse. ??? You feel very sleepy. ??? You develop vomiting or diarrhea that persists. ??? You notice red streaks coming from the infected area. ??? Your red area gets larger or turns dark in color. These symptoms may represent a serious problem that is an emergency. Do not wait to see if the symptoms will go away. Get medical help right away. Call your local emergency services (911 in the [place] Do not drive yourself to the hospital. Summary ??? Cellulitis is a skin infection. This condition occurs most often in the arms and lower legs. ??? Treatment for this condition may include medicines, such as antibiotic medicines or antihistamines. ??? Take [id number]-vqp-[id number] and prescription medicines only as told by your health care provider. If you were prescribed an antibiotic medicine, do not stop taking the antibiotic even if you start to feel better. ??? Contact a health care provider if your symptoms do not begin to improve within 1???2 days of starting treatment or your symptoms get worse. ??? Keep all follow-up visits as told by your health care provider. This is important. These visitslet your health care provider make sure that a more serious infection is not developing. This information is not intended to replace advice given to you by your health care provider. Make sure you discuss any questions you have with your health care provider. Document Revised: 06/16/2020 Document Reviewed: 10/26/2018 Elsevier Patient Education ?? 2021 [employer] Discharge instructions * Event Display: Discharge Instructions Physician Emergency department Note * Johan Lerner MD: PERFORM Event Display: ED Note Physician Authored Date: [id number] RED PEGUERO :1945 Age:77 years Sex:Male Visit Date:12/14/2022 Primary Care Physician: Delvis Dinero DO Basic Information Time Seen: Johan Lerner MD / 12/14/2022 15:40 Chief Complaint edema History Of Present Illness: Patient is here because she states is from swelling in the groin and penile region. ??Denies any increased pain. ??Denies fever chills abdominal pain??problems??with urination or any other??problems Review of Systems: Review of systems negative other than that stated above Physical Exam Vitals & Measurements T:??36.7?C ??(Tympanic)?? HR:??92??(Peripheral)?? RR:??20?? BP:??103/67?? SpO2:??94%?? HT:??162.400??cm?? WT:??73.00??kg?? BMI:??28.000?? General: Alert and oriented, well nourished, no acute distress. Eye: PERRL, EOMI, normal conjunctiva. HENT: Normocephalic,??normal hearing, moist oral mucosa, no scleral icterus, . Neck: Supple, non-tender, no carotid bruits, no JVD, no lymphadenopathy. No rigidity Lungs: Clear to auscultation and percussion, non-labored respiration. Heart: Normal rate, regular rhythm, no murmur, gallop or edema. Abdomen: Soft, non-tender, non-distended, normal bowel sounds, no masses. Musculoskeletal: Normal range of motion and strength, no tenderness or swelling. Skin: Both inguinal areas and perineum seems to have a slight??moist pink??rash consistent with tinea. ??There is some??mild swelling of the??penis. ??There is no??paraphimosis. ??The scrotum is not??swollen nor tender.?? It is slightly pink like the rest of the skin in the groin but no??other discoloration to suggest foreign years gangrene. ??He is positive??cremasteric reflexes bilaterally Neurologic: Awake, alert and oriented X4, CN II-XII intact. Psychiatric: Cooperative, appropriate mood and affect. Procedure No Qualifying Data Reexamination/Reevaluation The blood work reveals what looks like dehydration. ??Is given IV fluids. ??I see no evidence of??acute??unstable abnormalities. ??I feel that he can be discharged with antibiotics??and antitinea??medications follow-up with regular doctor for repeat blood work within several days return as needed. ??Patient became agitated while here??noticed by his . ??All went into discussed with him he states he really wants to leave. ??I told him that??certainly??we will let him leave. ??He refused the need for any mental health counseling??and refused admission.?? He tells me he has not??suicidal or homicidal. ??He states he simply??has been here too long and wants to go. ??I explained??to the about the need for??blood??work follow-up within several days to address the dehydration??the Keflex prescription and the need to continue antifungal??treatment. ??Patient will return for worsening symptoms. Assessment/Plan 1.??Tinea??B35.9 2.??Cellulitis??L03.90 3.??Dehydration??E86.0 Orders: cephalexin 500 mg oral capsule, 500 mg = 1 cap, Oral, QID, X 7 days, # 28 cap, 0 Refill(s), 12/21/22 17:43:00 EDT, Pharmacy: [facility], 162.4, cm, 12/14/22 15:53:00 EDT, Height/Length Dosing, 73, kg, 12/14/22 15:53:00 EDT, Weight Dosing Discharge Patient, 12/14/22 18:09:00 EDT Patient Education Cellulitis, Adult Medication Reconciliation New Prescription cephalexin (cephalexin 500 mg oral capsule)1 Capsules Oral (given by mouth) 4 times a day for 7 Days. Refills: 0. ?? Unchanged albuterol (Albuterol (Eqv-ProAir HFA) 90 mcg/inh inhalation aerosol)2 Puffs Inhale (breathe in) 4 times a day as needed Air Hunger. Refills: 11. ?? apixaban (Eliquis 5 mg oral tablet)1 tab Oral (given by mouth) 2 times a day. Refills: 3. ?? diclofenac topical (diclofenac 1% topical gel)4 Gram Topical (on the skin) 4 times a day as needed pain. Refills: 11. ?? ipratropium-albuterol (ipratropium-albuterol CFC free 20 mcg-100 mcg/inh inhalation aerosol) ?? lisinopril (lisinopril 20 mg oral tablet)1 tab Oral (given by mouth) every day. Refills: 3. ?? metoprolol (metoprolol succinate 25 mg oral tablet, extended release)1 tab Oral (given by mouth) every day. Refills: 3. ?? multivitamin (multivitamin adult, oral tablet)1 Unknown. ?? nitroglycerin (nitroglycerin 0.4 mg sublingual tablet) ?? omeprazole (omeprazole 20 mg oral delayed release capsule)1 Capsules Oral (given by mouth) every day. Refills: 3. ?? oxyCODONE (oxyCODONE 5 mg oral tablet)oxyCODONE 5 mg oral tablet) take 2 tabs by mouth every morning, then take 1 tab in the afternoon, and then 2 tabs every evening for pain; as needed as needed forpain. Refills: 0. ?? simvastatin (simvastatin 20 mg oral tablet)1 tab Oral (given by mouth) every night at bedtime. Refills: 5. ?? terazosin (terazosin 2 mg oral capsule)2 Milligrams Oral (given by mouth) every day for 90 Days. Refills: 3. ?? tiotropium-olodaterol (Stiolto Respimat 2.5 mcg-2.5 mcg/inh inhalation aerosol)2 Puffs Inhale (breathe in) every 24 hours. Refills: 11. ?? traZODone (traZODone 100 mg oral tablet)1 tab Oral (given by mouth) every night at bedtime. Refills: 3. ?? venlafaxine (venlafaxine 37.5 mg oral capsule, extended release)37.5 Milligrams Oral (given by mouth) every day. Refills: 3. ?? zinc oxide topical (zinc oxide topical ointment)20 Percent Topical (on the skin). ?? zolpidem (Ambien 5 mg oral tablet)5 Milligrams Oral (given by mouth) every night at bedtime as needed. Refills: 5. Problem List/Past Medical History Ongoing ADHD Adrenal [...] Procedure/Surgical History ???Excision of right adrenal gland Medication Administration Given Sodium Chloride 0.9%, 1000 mL, IV Bolus cephalexin, 500 mg, Oral Allergies fluticasone??(unknown) gabapentin??(unknown) morphine oxyCODONE??(Unknown) pregabalin??(unknown) Social History Alcohol Never Electronic Cigarette/Vaping Electronic Cigarette Use: Never. Substance Use Past, Marijuana Tobacco Current everyday tobacco user Tobacco Use:. 1.5 packs a day per day. Lab Results CBC and Differential?? LATEST RESULTS?? HISTORICAL RESULTS?? WBC?? 12/14/22 16:10?? 10.7?? 07/08/22?? 8.2?? RBC?? 12/14/22 16:10?? 3.31 ??Low?? 07/08/22?? 3.42 ??Low?? Hgb?? 12/14/22 16:10?? 10.4 ??Low?? 07/08/22?? 10.5 ??Low?? Hct?? 12/14/22 16:10?? 32.1 ??Low?? 07/08/22?? 32.6 ??Low?? MCV?? 12/14/22 16:10?? 97.0 ??High?? 07/08/22?? 95.3?? MCH?? 12/14/22 16:10?? 31.4 ??High?? 07/08/22?? 30.7?? MCHC?? 12/14/22 16:10?? 32.4?? 07/08/22?? 32.2?? RDW-CV?? 12/14/22 16:10?? 14.0?? 07/08/22?? 14.3?? Platelets?? 12/14/22 16:10?? 328?? 07/08/22?? 259?? MPV?? 12/14/22 16:10?? 8.8?? 07/08/22?? 8.4?? Neutro Auto?? 12/14/22 16:10?? 68.5?? 07/08/22?? 62.1?? Lymph Auto?? 12/14/22 16:10?? 20.7?? 07/08/22?? 25.4?? [place] Auto?? 12/14/22 16:10?? 9.4 ??High?? 07/08/22?? 7.8?? Eos, Auto?? 12/14/22 16:10?? 0.60?? 07/08/22?? 3.80 ??High?? Basophil Auto?? 12/14/22 16:10?? 0.5?? 07/08/22?? 0.7?? Imm Gran Auto?? 12/14/22 16:10?? 0.3?? 07/08/22?? 0.2?? Neutro Absolute?? 12/14/22 16:10?? 7.3 ??High?? 07/08/22?? 5.1?? Lymph Absolute?? 12/14/22 16:10?? 2.2?? 07/08/22?? 2.1?? [place] Absolute?? 12/14/22 16:10?? 1.0 ??High?? 07/08/22?? 0.6?? Eos Absolute?? 12/14/22 16:10?? 0.1?? 07/08/22?? 0.3 ??High?? Baso Absolute?? 12/14/22 16:10?? 0.0?? 07/08/22?? 0.1?? Imm Gran Absolute?? 12/14/22 16:10?? 0.03?? 07/08/22?? 0.02?? Slide Review?? 12/14/22 16:10?? Not Indicated? Routine Chemistry?? LATEST RESULTS?? HISTORICAL RESULTS?? Sodium Level?? 12/14/22 16:10?? 128 ??Low?? 07/08/22?? 129 ??Low?? Potassium Level?? 12/14/22 16:10?? 4.4?? 07/08/22?? 4.1?? Chloride Level?? 12/14/22 16:10?? 96 ??Low?? 07/08/22?? 95 ??Low?? CO2?? 12/14/22 16:10?? 22?? 07/08/22?? 26?? Alk Phos?? 12/14/22 16:10?? 110? AST?? 12/14/22 16:10?? 35? ALT?? 12/14/22 16:10?? 17? BUN?? 12/14/22 16:10?? 42 ??High?? 07/08/22?? 19?? Glucose Level?? 12/14/22 16:10?? 118 ??High?? 07/08/22?? 104?? Creatinine Level?? 12/14/22 16:10?? 2.18 ??High?? 07/08/22?? 0.97?? BUN/Creat Ratio?? 12/14/22 16:10?? 19.3?? 07/08/22?? 19.6?? eGFR CKD-EPI?? 12/14/22 16:10?? 31 ??Low?? 07/08/22?? 81?? Calcium Level?? 12/14/22 16:10?? 9.0?? 07/08/22?? 8.5 ??Low?? Protein Total?? 12/14/22 16:10?? 7.0? Albumin Level?? 12/14/22 16:10?? 3.2 ??Low? Globulin?? 12/14/22 16:10?? 3.8? A/G Ratio?? 12/14/22 16:10?? 0.8? Bilirubin Total?? 12/14/22 16:10?? 0.6? Anion Gap?? 12/14/22 16:10?? 10.0?? 07/08/22?? 8.0?? Osmolality?? 12/14/22 16:10?? 269 ??Low?? 07/08/22?? 262 ??Low? UA Macroscopic?? LATEST RESULTS?? Urine Srce?? 12/14/22 16:30?? Clean Catch?? UA Color?? 12/14/22 16:30?? Yellow?? UA Appear?? 12/14/22 16:30?? Clear?? UA Glucose?? 12/14/22 16:30?? Negative?? UA Bili?? 12/14/22 16:30?? Negative?? UA Ketones?? 12/14/22 16:30?? Negative?? UA Spec Grav?? 12/14/22 16:30?? 1.025?? UA Blood?? 12/14/22 16:30?? Negative?? UA pH?? 12/14/22 16:30?? 5.00?? UA Protein?? 12/14/22 16:30?? Negative?? UA Urobilinogen?? 12/14/22 16:30?? 0.2?? UA Nitrite?? 12/14/22 16:30?? Negative?? UA Leuk Est?? 12/14/22 16:30?? Negative? Electronically Signed on 12/14/22 07:12 PM Johan Lerner MD Emergency department Discharge instructions * Johan Lerner MD: PERFORM Event Display: ED Discharge Information Authored Date: [id number] RED PEGUERO :1945 Age:77 years Sex:Male Visit Date:12/14/2022 Primary Care Physician: Delvis Dinero, DO Discharge Instructions We would like to thank you for allowing us to assist you with your healthcare needs. The following includes patient education materials and information regarding your injury/illness. Diagnosis from Today's Visit Tinea Cellulitis Dehydration Discharge Vitals Temperature??(Tympanic) 98.1 ??F (36.7 ??C) Heart Rate??(Peripheral) 92 Respiratory Rate?? 20 Blood Pressure?? 103/67?? Height?? 63.94 in (162.400 cm) Weight?? 160.96 lb (73.00 kg) BMI?? 28.000 Allergies fluticasone??(unknown) gabapentin??(unknown) morphine oxyCODONE??(Unknown) pregabalin??(unknown) What to Do Next Instructions from Your Care Team Continue??anti-fungal cream to the groin. ??Keflex as prescribed. ??Follow-up with your doctor within??3 to 4 days for repeat blood work??to assess??kidney function. ??Return to ED for worsening symptoms You were treated today on an emergency [...] What How Much When Instructions Next Dose New cephalexin (cephalexin 500 mg oral capsule) 1 Capsules Oral (given by mouth) 4 times a day Duration: 7 Days Pickup at [facility] Unchanged albuterol (Albuterol (Eqv-ProAir HFA) 90 mcg/ inh inhalation aerosol) 2 Puffs Inhale (breathe in) 4 times a day as needed for Air Hunger Unchanged apixaban (Eliquis 5 mg oral tablet) 1 tab Oral (given by mouth) 2 times a day Unchanged diclofenac topical (diclofenac 1% topical gel) 4 Gram Topical (on the skin) 4 times a day as needed for pain Unchanged ipratropium-albuterol (ipratropium-albuterol CFC free 20 mcg-100 mcg/ inh inhalation aerosol) Unchanged lisinopril (lisinopril 20 mg oral tablet) 1 tab Oral (given by mouth) Every day Unchanged metoprolol (metoprolol succinate 25 mg oral tablet, extended release) 1 tab Oral (given by mouth) Every day Unchanged multivitamin (multivitamin adult, oral tablet) 1 Unknown ?? Unchanged nitroglycerin (nitroglycerin 0.4 mg sublingual tablet) Unchanged omeprazole (omeprazole 20 mg oral delayed release capsule) 1 Capsules Oral (given by mouth) Every day Unchanged oxyCODONE (oxyCODONE 5 mg oral tablet) See instructions oxyCODONE 5 mg oral tablet) ?? take 2 tabs by mouth every morning, then take 1 tab in the afternoon, and then 2 tabs every evening for pain, As needed for as needed for pain ?? Unchanged simvastatin (simvastatin 20 mg oral tablet) 1 tab Oral (given by mouth) Every night at bedtime Unchanged terazosin (terazosin 2 mg oral capsule) 2 Milligrams Oral (given by mouth) Every day Duration: 90 Days Unchanged tiotropium-olodaterol (Stiolto Respimat 2.5 mcg-2.5 mcg/ inh inhalation aerosol) 2 Puffs Inhale (breathe in) Every 24 hours Unchanged traZODone (traZODone 100 mg oral tablet) 1 tab Oral (given by mouth) Every night at bedtime Unchanged venlafaxine (venlafaxine 37.5 mg oral capsule, extended release) 37.5 Milligrams Oral (given by mouth) Every day Unchanged zinc oxide topical (zinc oxide topical ointment) 20 Percent Topical (on the skin) Unchanged zolpidem (Ambien 5 mg oral tablet) 5 Milligrams Oral (given by mouth) Every night at bedtime as needed for as needed Pharmacy Information [facility] #[id number]: [address] [place] [phone] Education Materials Cellulitis, Adult Cellulitis is a skin infection. The infected area is usually warm, red, swollen, and tender. This condition occurs most often in the arms and lower legs. The infection can travel to the muscles, blood, and underlying tissue and become serious. It is very important to get treated for this condition. What are the causes? Cellulitis is caused by bacteria. The bacteria enter through a break in the skin, such as a cut, burn, insect bite, open sore, or crack. What increases the risk? This condition is more likely to occur in people who: ? Have a weak body defense system (immune system). ? Have open wounds on the skin, such as cuts, robles, bites, and scrapes. Bacteria can enter the body through these open wounds. ? Are older than 60 years of age. ? Have diabetes. ? Have a type of long-lasting (chronic) liver disease (cirrhosis) or kidney disease. ? Are obese. ? Have a skin condition such as: ? Itchy rash (eczema). ? Slow movement of blood in the veins (venous stasis). ? Fluid buildup below the skin (edema). ? Have had radiation therapy. ? Use IV drugs. What are the signs or symptoms? Symptoms of this condition include: ? Redness, streaking, or spotting on the skin. ? Swollen area of the skin. ? Tenderness or pain when an area of the skin is touched. ? Warm skin. ? A fever. ? Chills. ? Blisters. How is this diagnosed? This condition is diagnosed based on a medical history and physical exam. You may also have tests, including: ? Blood tests. ? Imaging tests. How is this treated? Treatment for this condition may include: ? Medicines, such as antibiotic medicines or medicines to treat allergies (antihistamines). ? Supportive care, such as rest and application of cold or warm cloths (compresses) to the skin. ? Hospital care, if the condition is severe. The infection usually starts to get better within 1???2 days of treatment. Follow these instructions at home: Medicines ? Take akar-end-yngfrwq and prescription medicines only as told by your health care provider. ? If you were prescribed an antibiotic medicine, take it as told by your health care provider. Do notstop taking the antibiotic even if you start to feel better. General instructions ? Drink enough fluid to keep your urine pale yellow. ? Do not touch or rub the infected area. ? Raise (elevate) the infected area above the level of your heart while you are sitting or lying down. ? Apply warm or cold compresses to the affected area as told by your health care provider. ? Keep all follow-up visits as told by your health care provider. This is important. These visits letyour health care provider make sure a more serious infection is not developing. Contact a health care provider if: ? You have a fever. ? Your symptoms do not begin to improve within 1???2 days of starting treatment. ? Your bone or joint underneath the infected area becomes painful after the skin has healed. ? Your infection returns in the same area or another area. ? You notice a swollen bump in the infected area. ? You develop new symptoms. ? You have a general ill feeling (malaise) with muscle aches and pains. Get help right away if: ? Your symptoms get worse. ? You feel very sleepy. ? You develop vomiting or diarrhea that persists. ? You notice red streaks coming from the infected area. ? Your red area gets larger or turns dark in color. These symptoms may represent a serious problem that is an emergency. Do not wait to see if the symptoms will go away. Get medical help right away. Call your local emergency services (911 in the [place] Do not drive yourself to the hospital. Summary ? Cellulitis is a skin infection. This condition occurs most often in the arms and lower legs. ? Treatment for this condition may include medicines, such as antibiotic medicines or antihistamines. ? Take bzlz-jqc-cjwehqy and prescription medicines only as told by your health care provider. If you were prescribed an antibiotic medicine, do not stop taking the antibiotic even if you start to feel better. ? Contact a health care provider if your symptoms do not begin to improve within 1???2 days of starting treatment or your symptoms get worse. ? Keep all follow-up visits as told by your health care provider. This is important. These visits letyour health care provider make sure that a more serious infection is not developing. This information is not intended to replace advice given to you by your health care provider. Make sure you discuss any questions you have with your health care provider. Document Revised: 06/16/2020 Document Reviewed: 10/26/2018 Elsevier Patient Education ?? 2021 [employer] Tests Performed Medications and Immunizations Administered Given Sodium Chloride 0.9%, 1000 mL, IV Bolus Lab Test Name Test Result Date/Time WBC 10.7 K/mcL 12/14/2022 16:10 EDT RBC 3.31 Million/mcL 12/14/2022 16:10 EDT Hgb 10.4 g/dL 12/14/2022 16:10 EDT Hct 32.1 % 12/14/2022 16:10 EDT MCV 97.0 fL 12/14/2022 16:10 EDT MCH 31.4 pg 12/14/2022 16:10 EDT MCHC 32.4 g/dL 12/14/2022 16:10 EDT RDW-CV 14.0 % 12/14/2022 16:10 EDT Platelets 328 K/mcL 12/14/2022 16:10 EDT MPV 8.8 fL 12/14/2022 16:10 EDT Neutro Auto 68.5 % 12/14/2022 16:10 EDT Lymph Auto 20.7 % 12/14/2022 16:10 EDT Glacier Auto 9.4 % 12/14/2022 16:10 EDT Eos, Auto 0.60 % 12/14/2022 16:10 EDT Basophil Auto 0.5 % 12/14/2022 16:10 EDT Imm Gran Auto 0.3 % 12/14/2022 16:10 EDT Neutro Absolute 7.3 K/mcL 12/14/2022 16:10 EDT Lymph Absolute 2.2 K/mcL 12/14/2022 16:10 EDT Glacier Absolute 1.0 K/mcL 12/14/2022 16:10 EDT Eos Absolute 0.1 K/mcL 12/14/2022 16:10 EDT Baso Absolute 0.0 K/mcL 12/14/2022 16:10 EDT Imm Gran Absolute 0.03 12/14/2022 16:10 EDT Slide Review Not Indicated 12/14/2022 16:10 EDT Sodium Level 128 mmol/L 12/14/2022 16:10 EDT Potassium Level 4.4 mmol/L 12/14/2022 16:10 EDT Chloride Level 96 mmol/L 12/14/2022 16:10 EDT CO2 22 mmol/L 12/14/2022 16:10 EDT Alk Phos 110 IntlUnit/L 12/14/2022 16:10 EDT AST 35 IntlUnit/L 12/14/2022 16:10 EDT ALT 17 IntlUnit/L 12/14/2022 16:10 EDT BUN 42 mg/dL 12/14/2022 16:10 EDT Glucose Level 118 mg/dL 12/14/2022 16:10 EDT Creatinine Level 2.18 mg/dL 12/14/2022 16:10 EDT BUN/Creat Ratio 19.3 12/14/2022 16:10 EDT eGFR CKD-EPI 31 mL/min/1.73 m2 12/14/2022 16:10 EDT Calcium Level 9.0 mg/dL 12/14/2022 16:10 EDT Protein Total 7.0 g/dL 12/14/2022 16:10 EDT Albumin Level 3.2 g/dL 12/14/2022 16:10 EDT Globulin 3.8 12/14/2022 16:10 EDT A/G Ratio 0.8 12/14/2022 16:10 EDT Bilirubin Total 0.6 mg/dL 12/14/2022 16:10 EDT Anion Gap 10.0 12/14/2022 16:10 EDT Osmolality 269 mOsm/kg 12/14/2022 16:10 EDT Urine Srce Clean Catch 12/14/2022 16:30 EDT UA Color YELLOW. 12/14/2022 16:30 EDT UA Appear CLEAR. 12/14/2022 16:30 EDT UA Glucose NEGATIVE 12/14/2022 16:30 EDT UA Bili NEGATIVE 12/14/2022 16:30 EDT UA Ketones NEGATIVE 12/14/2022 16:30 EDT UA Spec Grav 1.025 12/14/2022 16:30 EDT UA Blood NEGATIVE 12/14/2022 16:30 EDT UA pH 5.00 12/14/2022 16:30 EDT UA Protein NEGATIVE 12/14/2022 16:30 EDT UA Urobilinogen 0.2 12/14/2022 16:30 EDT UA Nitrite NEGATIVE 12/14/2022 16:30 EDT UA Leuk Est NEGATIVE 12/14/2022 16:30 EDT Patient/Tomography Technologist Signature Patient Name:MARIELENA RED Spencer I have received this information and my questions have been answered. Patient/Tomography Technologist Name: Patient/Tomography Technologist Signature: Relationship to Patient: Witness Name/Signature: Date: Electronically Signed on: 12/14/2022 17:46 EDTSigned by:BALA Patient Care team information Care Team Personnel Name: Delvis Dinero DO Position: Physician Member Role: Primary Care Physician Address: Address: [address] [place] [address] Name: Yann JAMES, Johan Menchaca Position: Physician Member Role: Admitting Physician Address: Address: [address] [place] [address] Name: Fortunato Shankar Position: Nurse Member Role: ED Nurse Care Team Related Persons Name: ALEJANDRO PEGUERO Address: Home [address] [place], [place] [id number] [facility]
--- OUTSIDE RECORDS SUMMARY | 2023-04-21 18:46 | XMS_ITS | Continuity of Care Document ---
Author Name Unknown Organization [facility] Address [address] [place] [id number] Care Team Providers Care Printer Slotter Feeder Name Role Phone Delvis Dinero DO Primary Care Physician [phone] Encounter [facility] FIN NBR [id number] Date(s): 12/17/22 - 12/17/[address] [address] Discharge Disposition: Home or Self Care Attending Physician: Bren Campbell MD Admitting Physician: Bren Campbell MD Allergies, Adverse Reactions, [...] Hunger, # 8.5 g, 11 Refill(s), Pharmacy: [facility] #[id number], 165, cm, 07/08/22 16:32:00 EST, Height/Length Dosing, 71.67, kg, 07/08/22 16:32:00 EST, Weight Dosing Start Date: 12/01/22 Status: Ordered Ambien 5 mg oral tablet 5 mg =, Oral, every night at bedtime, PRN as needed, # 30 tab, 5 Refill(s), Pharmacy: [facility] #[facility], 165, cm, 07/08/22 16:32:00 EST, [...] # 150 tab, 0 Refill(s), Pharmacy: [facility], 165, cm, 07/08/22... Start Date: 12/08/22 Status: Ordered Propranolol Hydrochloride ER 120 mg oral capsule, extended release 120 mg = 1 cap, Oral, Daily, # 90 cap, 3 Refill(s), Pharmacy: [facility] #93, 162.4, cm, 12/14/2314:53:00 EDT, Height/Length Dosing, 73, kg, 12/14/22 15:53:00 EDT, Weight Dosing Start Date: 12/17/22 Status: Ordered simvastatin 20 mg oral tablet 20 mg = 1 tab, Oral, every night at bedtime, # 90 tab, 5 Refill(s), Pharmacy: [facility] #93, 165, cm, 07/08/22 16:32:00 EST, Height/Length Dosing, 71.67, kg, 07/08/22 16:32:00 EST, Weight Dosing Start Date: 12/01/22 Status: Ordered Stiolto Respimat 2.5 mcg-2.5 mcg/inh inhalation aerosol 2 puffs, Inhale, every 24 hr, # 4 g, 11 Refill(s), Pharmacy: [facility], 165, cm, 07/08/22 16:32:00 EST, Height/Length Dosing, 71.67, kg, 07/08/22 16:32:00 EST, Weight Dosing Start Date: 12/01/22 Status: Ordered terazosin 2 mg oral capsule 2 mg =, Oral, Daily, # 90 cap, 3 Refill(s), Pharmacy: [facility], 165, cm, 07/08/22 16:32:00 EST, Height/Length Dosing, 71.67, kg, 07/08/22 16:32:00 EST, Weight Dosing Start Date: 09/24/22 Stop Date: 09/19/23 Status: Ordered traZODone 100 mg oral tablet 100 mg = 1 tab, Oral, every night at bedtime, # 90 tab, 3 Refill(s), Pharmacy: [facility], 165, cm, 07/08/22 16:32:00 EST, Height/Length [...] gland removed. Results Laboratory List Name Date BNP 12/17/22 Comprehensive Metabolic Panel (CMP) 12/17 Hgb A1c 12/17/22 Iron Panel 12/17/22 Vitamin B12 & Folate Level 12/17/22 Vitamin D 25 Hydroxy Level 12/17/22 Most recent to oldest [Reference Range]: 1 BUN [8-26 mg/dL] 22 mg/dL (12/17/22 3:19 PM) Glucose Level [74-106 mg/dL] 133 mg/dL *HI* (12/17/22 3:19 PM) Potassium Level [3.5-5.1 mmol/L] 4.1 mmo l/L (12/17/22 3:19 PM) AST [15-41 IntlUnit/L] 34 IntlUnit/L (12/17/22 3:19 PM) ALT [17-63 IntlUnit/L] 19 IntlUnit/L (12/17/22 3:19 PM) Osmolality [275-295 mOsm/kg] 264 mOsm/kg *LOW* (12/17/22 3:19 PM) Sodium Level [134-143 mmol/L] 129 mmol/L *LOW* (12/17/22 3:19 PM) Folate Level [>=5.9 ng/mL] 13.1 ng/mL (12/17/22 3:19 PM) Vitamin D 25 OH [30.0-100.0 ng/mL] 44.2 ng/mL 1 (12/17/22 3:19 PM) Calcium Level [8.9-10.3 mg/dL] 8.5 mg/dL *LOW* (12/17/22 3:19 PM) Albumin Level [3.5-5.0 g/dL] 2.7 g/dL *LOW* (12/17/22 3:19 PM) Protein Total [6.5-8.1 g/dL] 5.7 g/dL *LOW* (12/17/22 3:19 PM) Iron Sat [20-55 %] 15 % *LOW* (12/17/22 3:19 PM) Bilirubin Total [0.2-1.2 mg/dL] 0.6 mg/d L (12/17/22 3:19 PM) Transferrin [180-329 mg/dL] 192 mg/dL (12/17/22 3:19 PM) B12 Level [180-914 pg/mL] 785 pg/mL (12/17/22 3:19 PM) Alk Phos [38-130 IntlUnit/L] 98 IntlUnit /L (12/17/22 3:19 PM) CO2 [22-32 mmol/L] 25 mmol/L (12/17/22 3:19 PM) TIBC 269 *NA* (12/17/22 3:19 PM) Iron [45-182 mcg/dL] 40 mcg/dL *LOW* (12/17/22 3:19 PM) BNP [<=100 pg/mL] 330 pg/mL *HI* (12/17/22 3:19 PM) eAvg Glucose [70-105 mg/dL] 143 mg/dL *HI* (12/17/22 3:19 PM) Chloride Level [98-111 mmol/L] 98 mmol/L (12/17/22 3:19 PM) A/G Ratio 0.9 *NA* (12/17/22 3:19 PM) BUN/Creat Ratio [8.0-20.0] 22.0 *HI* (12/17/22 3:19 PM) Globulin 3.0 *NA* (12/17/22 3:19 PM) Hgb A1c Percent [4.0-6.0 %] 6.6 % *HI* (12/17/22 3:19 PM) .Hb 10.3 g/dL *NA* (12/17/22 3:19 PM) .Hgb A1c 0.5 g/dL *NA* (12/17/22 3:19 PM) Creatinine Level [0.61-1.24 mg/dL] 1.00 mg/dL (12/17/22 3:19 PM) Anion Gap [3.0-12.0] 6.0 (12/17/22 3:19 PM) eGFR CKD-EPI [>=60 mL/min/1.73 m2] 78 mL /min/1.73 m2 (12/17/22 3:19 PM) 1Interpretive Data: VIT D STATUS: RANGE: Deficient <20 ng/mL Insufficiency 20-30 ng/mL Sufficiency 30-100 ng/mL Toxicity >100 ng/mL Patients that have undergone flourescein dye angiography without allowing enough time for clearanceof the flourescein dye may have falsely elevated Vitamin D levels. Social History Social History Type Response Tobacco Current everyday tob acco user Tobacco Use:. 1.5 packs a day per day. Sex Patient Care team information Care Team Personnel Name: Delvis Dinero DO Position: Physician Member Role: Primary Care Physician Address: Address: [address] [place] [phone] [place] Care Team Related Persons Name: ALEJANDRO PEGUERO Address: Home [address] [phone] [facility]
[2023-04-21] MEDS: oxyCODONE 10 MG TAB PO (19:18)
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
== END 2023-04-21 19:21 | disposition home or self-care (01) ==
PROVIDERS: Emergency Provider Physician Assistant; PCP Internal Medicine
DX: T23.152A Burn of first degree of left palm, initial encounter (principal); T23.032A Burn of unspecified degree of multiple left fingers (nail), not including thumb, initial encounter; T31.0 Burns involving less than 10% of body surface; I48.91 Unspecified atrial fibrillation; I10 Essential (primary) hypertension; E78.5 Hyperlipidemia, unspecified; F17.210 Nicotine dependence, cigarettes, uncomplicated; Z79.01 Long term (current) use of anticoagulants; X08.8XXA Exposure to other specified smoke, fire and flames, initial encounter; Y93.89 Activity, other specified; Z23 Encounter for immunization
CPT/HCPCS: 90471; 99283

== ENCOUNTER 2023-06-17 11:15 | Emergency (ER) | payer OTHER, SELFPAY ==
[2023-06-17 11:20] VITALS: BP 140/89; PULSE 81; TEMP 36.4; O2SAT 98
--- NOTE | 2023-06-17 12:15 | DI.CT_ITS ---
Exam(s) CT THORACIC LUMBAR SPINE WO EXAM: CT THORACIC LUMBAR SPINE WO CLINICAL HISTORY: back pain post fall. TECHNIQUE: Imaging Protocol: Axial computed tomography images with coronal and sagittal reformatted images were created and reviewed. CONTRAST MATERIAL: Intravenous: Omnipaque 350 Contrast volume:structured data in ml Contrast route:I V - Oral: yes / no COMPARISON: No exams were available for comparison FINDINGS: THORACIC SPINAL COLUMN: Multilevel advanced chronic degenerative disc disease. Also kyphosis related to mild chronic wedging of midthoracic vertebra. There is no evidence of acute fracture, listhesis, nor facet malalignment. No acute compromise of the thoracic spinal canal. LUMBOSACRAL SPINAL COLUMN: No evidence of fracture or listhesis. At L2-3 level there is chronic disc space narrowing. There is moderate-severe central canal stenosis at this level due to broad annular bulging, short AP dimensions the pedicles and facet degenerative changes. Also ligamentum flavum hypertrophy. At L3-4 level there is mild-moderate central spinal canal stenosis for similar reasons to L2-3. At L4-5 level there is moderate-severe central spinal canal stenosis for similar reasons due to broad annular bulging, short AP dimensions the pedicles and facet arthrosis. There is also bilateral liga mentum flavum hypertrophy. At L5-S1 level there is normal disc height. Central canal dimensions are lower normal. No disc haritha iation. Some facet hypertrophy IMPRESSION: No evidence of acute fractures in the thoracic and lumbosacral spinal columns and no acute compromise of the spinal canal. There is moderate-severe central spinal canal stenosis at L4-5 level and mild-moderate canal stenosis at L3-4 level. Also moderate-severe canal stenosis at L2-3 level. See above discussion RADIATION DOSE DELIVERED: Total DLP DATA REPOSITORY: All CT scans at this facility are submitted to the National Radiology Data Registry (NRDR) Dose Index Registry (DIR) with the [employer] ([employer]). RADIATION OPTIMIZATION: All CT scans at this facility use at least one of these dose optimization te chniques: automated exposure control; mA and/or kV adjustment per patient size (includes targeted exa ms where dose is matched to clinical indication); or iterative reconstruction.
[2023-06-17] MEDS: oxyCODONE 10 MG TAB PO (12:43)
--- NOTE | 2023-06-17 13:38 | ED.GENADUL_ITS ---
Discharge Plan Disposition Patient Disposition: Eloped Condition: Stable Discharge Details Clinical Impression: Back pain Primary Care Provider: Brijesh Elliott ED Provider: Toshia Vilchis Home Meds and New Rx's Prescriptions: No Action apixaban 5 mg tablet 5 mg PO BID atorvastatin 40 mg tablet 40 mg PO DAILY clotrimazole 1 % cream 1 applic topical BID lisinopril 2.5 mg tablet 2.5 mg PO DAILY naloxone 4 mg/actuation spray,non-aerosol 4 mg intranasal Q3M PRN Rx Instructions: spray 1 dose into ONE nostril; alternate nostrils w each dose until help arrives omeprazole 20 mg capsule,delayed release(DR/EC) 20 mg PO BID venlafaxine 37.5 mg capsule,extended release 24hr 37.5 mg PO DAILY zolpidem 5 mg tablet 5 mg PO QHS multivitamin Tablet 1 tab PO DAILY ketoconazole 2 % cream 1 applic topical DAILY Qty: 60 3RF Rx Instructions: apply to toenails once daily urea 40 % cream 1 applic topical BID Qty: 28 3RF Rx Instructions: apply to feet, calluses and toenails. trazodone 100 MG tablet 100 mg PO HS oxycodone 5 mg tablet 10 mg PO TID PRN (Reason: pain) terazosin 2 MG capsule 2 mg PO HS Discharge Data Discharge Date/Time-TO BE ENTERED AT DEPARTURE: 06/17/23 13:45 Medical Decision Making 77-year-old male in no acute distress presenting with thoracic and lumbar back pain after a fall. States legs gave out, states this is not an uncommon occurrence Patient is alert, oriented, no acute distress, neurovascularly intact No visible sign of trauma, specifically no CVA tenderness or abdominal tenderne ss, pupils equal round reactive to light and accommodation, no visible sign of head trauma Ambulatory with steady gait, 1+ edema to bilateral lower extremities CTs were ordered for additional evaluation, thoracic and lumbar spine CTs without evidence of acute abnormality Chronic findings noted, of note, patient eloped prior to reassessment or review of his CT scans and I was not able to relay the results or do additional assessment On initial assessment no evidence of cauda equina syndrome clinically HPI General Date/Time Provider Initiated Documentation: 06/17/23 12:11 . HPI Narrative: 77-year-old male presents with report of back pain, he states he was standing at the kitchen when his legs gave out and he fell onto his back. He states that this happens frequently. He denies any head injury or loss of consciousness. Denies any flank pain or hematuria. He denies any weakness or abdominal pain. He is listed as being on Eliquis but does not take this medication He states that he is been ambulatory since the event occurred but has had persistent pain. He also ran out of his oxycodone reportedly. Related Data Home Medications Medication Instructions Recorded Confirmed trazodone 100 mg tablet 100 mg PO HS 08/09/13 06/17/23 terazosin 2 mg capsule 2 mg PO HS 09/03/16 06/17/23 apixaban 5 mg tablet 5 mg PO BID 02/06/23 06/17/23 atorvastatin 40 mg tablet 40 mg PO DAILY 02/06/23 06/17/23 clotrimazole 1 % topical cream 1 applic topical BID 02/06/23 06/17/23 lisinopril 2.5 mg tablet 2.5 mg PO DAILY 02/06/23 06/17/23 multivitamin 1 tab PO DAILY 02/06/23 06/17/23 naloxone 4 mg/actuation nasal spray 4 mg intranasal Q3M PRN 02/06/23 06/17/23 omeprazole 20 mg capsule,delayed 20 mg PO BID 02/06/23 06/17/23 release oxycodone 5 mg tablet 10 mg PO TID PRN pain 02/06/23 06/17/23 venlafaxine 37.5 mg 37.5 mg PO DAILY 02/06/23 06/17/23 capsule,extended release 24 hr zolpidem 5 mg tablet 5 mg PO QHS 02/06/23 06/17/23 ketoconazole 2 % topical cream 1 applic topical DAILY #60 grams 02/09/23 06/17/23 urea 40 % topical cream 1 applic topical BID #28 grams 02/09/23 06/17/23 Previous Rx's Medication Instructions Recorded ketoconazole 2 % topical cream 1 applic topical DAILY #60 grams 02/09/23 urea 40 % topical cream 1 applic topical BID #28 grams 02/09/23 Allergies Allergy/AdvReac Type Severity Reaction Status Date / Time fluticasone Allergy Unknown Verified 06/17/23 11:23 gabapentin Allergy Unknown Verified 06/17/23 11:23 pregabalin Allergy Unknown Verified 06/17/23 11:23 doxycycline AdvReac Intermediate vomiting Verified 06/17/23 11:23 morphine AdvReac Unknown Psychosis Verified 06/17/23 11:23 General Stated Complaint: Fall/Non TraumaCriteria HAROLDO: 4 PFSH All Active Problems (Updated 06/17/23 @ 14:24 by KEI Tracy) Back pain (Acute) Pain in joint, foot, left (Acute) Corns and callosities (Acute) Cellulitis (Acute) Venous (peripheral) insufficiency (Acute) PAD (peripheral artery disease) (Acute) Onychomycosis (Acute) Neuropathy (Acute) Atrial fibrillation (Chronic) Hearing loss (Acute) with subjective 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 Mononeuritis (Acute) Hyperlipidemia (Acute) Essential (primary) hypertension (Acute) BPH (benign prostatic hyperplasia) (Chronic) ADHD (Acute) ASCVD (arteriosclerotic cardiovascular disease) (Acute) Long-term current use of opiate analgesic (Acute) Tobacco use disorder (Acute) Venous stasis dermatitis (Acute) Peripheral edema (Acute) 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 Frequent falls (Acute) Medical History Viral meningitis Complete rotator cuff tear right Cervical spondylosis Bursitis 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 Exposure to [employer] [place] Social History Smoking/Tobacco Use Status: Current every day Tobacco Type: cigarettes Smoking packs per day: 1 Smoking cigarettes per day: 20.0 Years smoked: 50 Smoking pack-years: 50.00 Smoking risk assessment performed?: Yes Alcohol Intake: never Drug use: Never Substance use type: does not use Housing: house Do you feel safe at home: Yes Do you feel safe in your relationship?: Yes Course Vital Signs Vital signs: Vital Signs Temperature 36.4 C L 06/17/23 11:20 Pulse 81 06/17/23 11:20 Blood Pressure 140/89 06/17/23 11:20 Pulse Oximetry 98 06/17/23 11:20 Temperature 36.4 C L 06/17/23 11:20 Temperature Source Temporal Artery Scan 06/17/23 11:20 Pulse 81 06/17/23 11:20 Respiratory Effort Normal, Non-Labored 06/17/23 11:25 Blood Pressure 140/89 06/17/23 11:20 Blood Pressure Position Supine 06/17/23 11:20 Pulse Oximetry 98 06/17/23 11:20 Oxygen Delivery Method Room Air 06/17/23 11:20 Oxygen Flow Rate 0 06/17/23 11:20
== END 2023-06-17 13:45 | disposition left against medical advice (07) ==
LOC: ER 11:35
PROVIDERS: Emergency Provider Physician Assistant; PCP Internal Medicine
DX: M54.9 Dorsalgia, unspecified (principal); R29.6 Repeated falls; F17.200 Nicotine dependence, unspecified, uncomplicated; R53.1 Weakness
CPT/HCPCS: 99285; 72128; 72131; 99283

== ENCOUNTER 2023-07-24 05:26 | Emergency (ER) | payer OTHER, SELFPAY ==
[2023-07-24] VITALS (66 sets, daily range): BP systolic 68–145; BP diastolic 39–90; PULSE 69–172; RESP 11–30; TEMP 36.8; O2SAT 95–97
--- NOTE | 2023-07-24 05:15 | RT.EKG_ITS ---
APPROVED REPORT Exam: Resting ECG Reason for Exam: Fall Patient Location: E HR:83 bpm ECG Measurements Heart Rate 83 AXIS SC [id number] P [id number] QRSd 134 QRS 130 QT 430 T -67 QTc 505 Conclusion Atrial fibrillation. limited interp 2/t baseline artifact
--- NOTE | 2023-07-24 05:30 | RT.EKG_ITS ---
APPROVED REPORT Exam: Resting ECG Reason for Exam: hypotension Patient Location: E HR:80 bpm ECG Measurements Heart Rate 80 AXIS WV [id number] P [id number] QRSd 103 QRS 22 QT 405 T 85 QTc 469 Conclusion Atrial fibrillation...V-rate 68- 95, irreg A-activity Anterior infarct, old...Q >40mS, abnormal ST-T, V2-V5 no ST segment or T wave abnormalities to suggest occlusive [place]
--- NOTE | 2023-07-24 05:30 | DI.RAD_ITS ---
Exam(s) XR PORTABLE CHEST AP EXAM: XR PORTABLE CHEST AP CLINICAL HISTORY: hypotension. TECHNIQUE: 2D digital imaging was performed. COMPARISON: No exams were available for comparison FINDINGS: Single AP portable view. Heart size upper normal. The mediastinum is not widened. No infiltrates no pleural effusions. No pulmonary edema. No pneumothorax. No acute fractures evide nt. Fusion plate on the dorsal aspect of the left clavicle noted. Advanced degenerative changes in both shoulders glenohumeral joints. IMPRESSION: No acute pulmonary findings on this single AP portable view of the chest. DATA REPOSITORY: RADIATION DOSE DELIVERED:
--- NOTE | 2023-07-24 05:30 | DI.CT_ITS ---
Exam(s) CT HEAD WO EXAM: CT HEAD WO CLINICAL HISTORY: fall on blood thinners. TECHNIQUE: Imaging Protocol: Axial computed tomography images with coronal and sagittal reformatted images were created and reviewed COMPARISON: CT CT HEAD CERVICAL SPINE WO from 12/27/2022 FINDINGS: There are no skull fractures. Fluid noted in the left maxillary sinus. No sinus fracture evident. O ther paranasal sinuses are clear. There is no evidence of intracranial hemorrhage, mass effect, or shift of midline structures. There are no extra-axial fluid collections. The ventricles are not enlarged or shifted and there is no blo od within the ventricular system nor within the basal cisterns. There is a moderate amount of periventricular hypodensity consistent with chronic small vessel diseas e. No obvious acute infarct. IMPRESSION: No acute intracranial findings on this noninfused CT scan of the brain. Chronic small-vessel white m atter ischemic changes. No intracranial hemorrhage. Fluid in left maxillary sinus consistent with sinusitis. RADIATION DOSE DELIVERED: 784.86mGy.cm Total DLP DATA REPOSITORY: All CT scans at this facility are submitted to the National Radiology Data Registry (NRDR) Dose Index Registry (DIR) with the [employer] (ACR). RADIATION OPTIMIZATION: All CT scans at this facility use at least one of these dose optimization te chniques: automated exposure control; mA and/or kV adjustment per patient size (includes targeted exa ms where dose is matched to clinical indication); or iterative reconstruction.
--- NOTE | 2023-07-24 05:45 | DI.CT_ITS ---
Exam(s) CT CHEST/ABD/PEL WO EXAM: CT CHEST/ABD/PEL WO CLINICAL HISTORY: hypotension. TECHNIQUE: Imaging Protocol: Axial computed tomography images with coronal and sagittal reformatted images were created and reviewed CONTRAST MATERIAL: Intravenous: none Oral: None COMPARISON: No exams were available for comparison FINDINGS: CHEST: LUNGS: No infiltrates nor pleural effusions. No ominous lung nodules. No findings in the trachea an d mainstem bronchi.. MEDIASTINUM: No obvious hilar nor mediastinal adenopathy. Visualized thyroid unremarkable. CARDIAC: Heart size is normal. There is no pericardial effusion.Caliber of the thoracic aorta is upp er normal limits. OSSEOUS: Fusion plate noted in the left clavicle.There are healing subacute appearing fractures of th e right 6, 7th, 8th, and 9th ribs. Mild callus formation at these levels. There are no acute rib fr actures evident on either side. Multilevel chronic degenerative disc disease in the thoracic spine n oted but no acute compression fractures of the thoracolumbar vertebrae. ABDOMEN: There is no ascites. However, there is anasarca evident and there is subcutaneous prominent density over the left flank probable hematoma at, above, and below the level of the left iliac crest. This m easures approximately 11 cm AP by 5 cm wide by 10 cm cephalocaudal. LIVER: No liver laceration evident. No discrete focal hepatic lesions identified on this non few pito dy. GALLBLADDER/BILIARY: No obvious gallbladder pathology. CBD is not dilated. PANCREAS: No evidence of obvious pancreatic mass nor dilatation of the pancreatic duct. SPLEEN: Spleen is not enlarged. No obvious intrasplenic lesions. ADRENALS: Right adrenal gland is surgically absent. There is a hypodense nodule in the left adrenal gland which measures 2.5 By 2.1 cm. KIDNEYS: No calculi nor hydronephrosis. No obvious solid renal masses. No cysts evident. ABDOMINAL AORTA: Abdominal aorta and iliac arteries are heavily calcified but not significantly dilat ed. LYMPH NODES: There is no retroperitoneal nor para-aortic adenopathy. ABDOMINAL WALL/GI: Symmetrical swelling of the anterior abdominal wall subcutaneous layer. No evidence of bowel obstruction. PELVIS: LYMPH NODES: There is no intrapelvic nor inguinal adenopathy. GI: No evidence of appendicitis.Sigmoid diverticuli without evidence of obvious acute diverticulitis. URINARY BLADDER: Moderately distended. No obvious masses. REPRODUCTIVE: Prostate not enlarged. Seminal vesicles unremarkable. OSSEOUS: No pelvic fractures identified. No significant osseous lesions. IMPRESSION: 1. Large left flank subcutaneous collection/probable hematoma (given the history here) with measureme nts as above. No subjacent fractures in the left side of the pelvis. 2. There fractures of the right 6, 7th, 8th, 9th ribs which appears subacute. There are no obvious a cute rib fractures identified. Also no vertebral body fractures. 3. Right adrenal gland surgically absent. There is a 25 x 21 mm hypodense nodule in left adrenal gla nd. RADIATION DOSE DELIVERED: 1,215.35mGy.cm Total DLP DATA REPOSITORY: All CT scans at this facility are submitted to the National Radiology Data Registry (NRDR) Dose Index Registry (DIR) with the [employer] (ACR). RADIATION OPTIMIZATION: All CT scans at this facility use at least one of these dose optimization te chniques: automated exposure control; mA and/or kV adjustment per patient size (includes targeted exa ms where dose is matched to clinical indication); or iterative reconstruction.
[2023-07-24 05:51] LABS: Abs Immature Grans 0.02 10^3/uL (0.0-0.06); Absolute Basophil Count 0.03 10^3/uL (0.0-0.2); Absolute Eosinophil Count 0.08 10^3/uL (0.0-0.7); Absolute Monocyte Count 0.47 10^3/uL (0.1-0.8); Absolute Neutrophil Count 3.04 10^3/uL (1.2-6.7); BE (Venous) -3 mmol/L (-2-3); Basophils % 0.6; Eosinophils % 1.6; HCO3 (Venous) 24 mmol/L (23-28); HCT 28.1 % (40.0-50.0); HGB 9.3 g/dL (13.5-17.5); Immature Grans % 0.4; Lymphocytes % 29.2; MCHC 33.1 % (32.0-36.0); MCV 88 fL (80-95); MPV 8.8 fL (8.0-11.0); Monocytes % 9.1; Neutrophils % 59.1; O2 Sat (Venous) 55 %; Platelet Count 265 10^3/uL (130-400); RBC 3.21 10^6/uL (4.36-5.78); RDW 15.2 % (11.8-14.1); RDW-SD 48.7 fL; TCO2 (Venous) 23 mmol/L (24-29); WBC 5.14 10^3/uL (4.4-10.8); pCO2 (Venous) 46 mmHg (41-51); pH (Venous) 7.32 (7.31-7.41); pO2 (Venous) 32 mmHg
[2023-07-24] MEDS: Normal Saline 1,000 ML 1000 ML IV ×2 (05:56→06:42)
[2023-07-24 06:14] LABS: ALT 53 U/L (16-63); AST 93 U/L (15-37); Albumin 2.3 g/dL (3.4-5.0); Alkaline Phosphatase 84 U/L (46-116); Anion Gap 10.2 mmol/L (3-11); BUN 33 mg/dL (7-18); Bilirubin, Total 0.6 mg/dL (0.2-1.0); CO2 22.8 mmol/L (21.0-32.0); CREATININE 2.6 mg/dL (0.70-1.30); Calcium 7.8 mg/dL (8.5-10.1); Chloride 90 mmol/L (98-107); Estimated GFR 24.78 (mL/min/1.73m2); Glucose 69 mg/dL (74-106); Magnesium 1.1 mg/dL (1.8-2.4); Potassium 3.9 mmol/L (3.5-5.1); Total Protein 6.1 g/dL (6.4-8.2); Troponin I < 50 ng/L (< or =60)
[2023-07-24 06:15] LABS: Sodium 123 mmol/L (136-145)
[2023-07-24 06:22] LABS: ETHANOL BLOOD < 3.0 mg/dL (<10)
--- NOTE | 2023-07-24 06:32 | W.ED.GENAD ---
HPI General Mode of arrival: EMS. Date/Time Provider Initiated Documentation: 07/24/23 05:34. Limitations to Documentation: other. Information obtained by: patient, EMS and old records reviewed. HPI Narrative: 77yo M with hx chronic back pain, HTN, HLD, afib, frequent falls, presenting via EMS for fall. History from patient and EMS. called EMS this morning after patient fell out of bed; no head strike or loss of conciousness. Prescribed eliquis but has not been taking (has also not been taking any of his blood pressure medications, not sure for how long). [facility], prescribed oxydone 5mg tabs up to 6 day. EMS found bottle with 70 tablets, only about 30 left. If he alone has been taking them this is about 10 tablets/day; he does state that he took three tablets just prior to EMS arrival. Yesterday evening did have some chest pain; states he took one nitro at that time which relieved the pain. Currently feels great; no chest pain, shortness of breath, headache, numbness, weakness, pain anywhere, nausea, vomiting, or other concerns. Related Data Home Medications Medication Instructions Recorded Confirmed trazodone 100 mg tablet 100 mg PO HS 08/09/13 06/17/23 terazosin 2 mg capsule 2 mg PO HS 09/03/16 06/17/23 apixaban 5 mg tablet 5 mg PO BID 02/06/23 06/17/23 atorvastatin 40 mg tablet 40 mg PO DAILY 02/06/23 06/17/23 clotrimazole 1 % topical cream 1 applic topical BID 02/06/23 06/17/23 lisinopril 2.5 mg tablet 2.5 mg PO DAILY 02/06/23 06/17/23 multivitamin 1 tab PO DAILY 02/06/23 06/17/23 naloxone 4 mg/actuation nasal spray 4 mg intranasal Q3M PRN 02/06/23 06/17/23 omeprazole 20 mg capsule,delayed 20 mg PO BID 02/06/23 06/17/23 release oxycodone 5 mg tablet 10 mg PO TID PRN pain 02/06/23 06/17/23 venlafaxine 37.5 mg 37.5 mg PO DAILY 02/06/23 06/17/23 capsule,extended release 24 hr zolpidem 5 mg tablet 5 mg PO QHS 02/06/23 06/17/23 ketoconazole 2 % topical cream 1 applic topical DAILY #60 grams 02/09/23 06/17/23 urea 40 % topical cream 1 applic topical BID #28 grams 02/09/23 06/17/23 Previous Rx's Medication Instructions Recorded ketoconazole 2 % topical cream 1 applic topical DAILY #60 grams 02/09/23 urea 40 % topical cream 1 applic topical BID #28 grams 02/09/23 Allergies Allergy/AdvReac Type Severity Reaction Status Date / Time fluticasone Allergy Unknown Verified 06/17/23 11:23 gabapentin Allergy Unknown Verified 06/17/23 11:23 pregabalin Allergy Unknown Verified 06/17/23 11:23 doxycycline AdvReac Intermediate vomiting Verified 06/17/23 11:23 morphine AdvReac Unknown Psychosis Verified 06/17/23 11:23 General Stated Complaint: Fall/Non TraumaCriteria HAROLDO: 3 Review of Systems Narrative: see HPI Exam Narrative Exam Narrative: GENERAL: Alert, in no acute distress. SKIN: Warm and well perfused. Scattered echymosis on extremities. HEAD: Atraumatic, normocephalic without edema, discoloration or evidence of trauma. EYES: PERRL. No scleral icterus or conjunctival injection. MOUTH: Moist mucus membranes without blood. NECK: Trachea midline. No discolorations or edema. CV: Irregular. Normal s1 and s2. PV: Radial pulses 2+ bilaterally and symmetric. \2+ capillary refill. CHEST: No abrasions or ecchymosis. Chest symmetric with respirations. No chest wall tenderness. Lungs are clear to auscultation bilaterally. ABDOMEN: No ecchymosis or abrasions. Soft, nondistended, nontender. Erythema in panus consistent with leigha. BACK: Spine without bony tenderness, no step offs. PELVIC: Pelvis stable, MSK: No gross deformities. Dressings in place RUE. Tolerates full range of motion of extremities without tenderness. NEURO: GCS 15. Sensation grossly intact. Moves all extremities freely against gravity. Course Vital Signs Vital signs: Vital Signs Temperature 36.8 C 07/24/23 05:29 Pulse 82 07/24/23 05:29 Respiratory Rate 17 07/24/23 05:29 Blood Pressure 94/54 L 07/24/23 05:29 Pulse Oximetry 97 02/04/24 05:29 Temperature 36.8 C 07/24/23 05:29 Pulse 91 H 07/24/23 06:06 Pulse 99 H 07/24/23 06:20 Respiratory Rate 30 H 07/24/23 06:20 Respiratory Effort Normal 07/24/23 05:50 Blood Pressure 103/83 07/24/23 06:06 Blood Pressure Mean 90 07/24/23 06:06 Blood Pressure Position Supine 07/24/23 05:29 Pulse Oximetry 97 07/24/23 05:29 Oxygen Delivery Method Room Air 07/24/23 05:29 Oxygen Flow Rate 0 07/24/23 05:29 Pain Level 0 07/24/23 05:29 Lab/Test Results Lab/Test Results: Laboratory Tests Range/Units 07/24/23 05:45 WBC (4.4-10.8) 10^3/uL 5.14 RBC (4.36-5.78) 10^6/uL 3.21 L Hgb (13.5-17.5) g/dL 9.3 L Hct (40.0-50.0) % 28.1 L MCV (80-95) fL 88 MCH (27.0-33.0) pg 29.0 MCHC (32.0-36.0) % 33.1 RDW (11.8-14.1) % 15.2 H Plt Count (130-400) 10^3/uL 265 MPV (8.0-11.0) fL 8.8 Immature Gran % 0.4 Neutrophils % 59.1 Lymphocytes % 29.2 Monocytes % 9.1 Eosinophils % 1.6 Basophils % 0.6 Nucleated RBC % (0.0-0.3) % 0.0 Absolute Neutrophils (1.2-6.7) 10^3/uL 3.04 Absolute Lymphocytes (1.2-3.4) 10^3/uL 1.50 Absolute Monocytes (0.1-0.8) 10^3/uL 0.47 Absolute Eosinophils (0.0-0.7) 10^3/uL 0.08 Absolute Basophils (0.0-0.2) 10^3/uL 0.03 VBG pH (7.31-7.41) 7.32 VBG pCO2 (41-51) mmHg 46 VBG pO2 mmHg 32 VBG HCO3 (23-28) mmol/L 24 VBG Total CO2 (24-29) mmol/L 23 L VBG O2 Saturation % 55 VBG Base Excess (-2-3) mmol/L -3 L VBG Lactate (0.6-1.4) mmol/L 1.0 Sodium (136-145) mmol/L 123 L* Potassium (3.5-5.1) mmol/L 3.9 Chloride (98-107) mmol/L 90 L Carbon Dioxide (21.0-32.0) mmol/L 22.8 Anion Gap (3-11) mmol/L 10.2 BUN (7-18) mg/dL 33 H Creatinine (0.70-1.30) mg/dL 2.6 H Est GFR (CKD-EPI 2020) (mL/min/1.73m2) 24.78 Glucose (74-106) mg/dL 69 L Calcium (8.5-10.1) mg/dL 7.8 L Magnesium (1.8-2.4) mg/dL 1.1 L Total Bilirubin (0.2-1.0) mg/dL 0.6 AST (15-37) U/L 93 H ALT (16-63) U/L 53 Alkaline Phosphatase (46-116) U/L 84 Troponin I (< or =60) ng/L < 50 Total Protein (6.4-8.2) g/dL 6.1 L Albumin (3.4-5.0) g/dL 2.3 L TSH (0.36-3.74) uIU/mL 2.60 Ethyl Alcohol (<10) mg/dL < 3.0 Medical Decision Making 77yo M with hx chronic back pain, HTN, HLD, afib, frequent falls, presenting via EMS for fall. History from patient and EMS. called EMS this morning after patient fell out of bed; no head strike or loss of consciousness, not taking his prescribed eliquis. Per EMS prescribed total of 70 oxycodone on Tuesday, 30 left this morning on pill count. Yesterday evening did have some chest pain; states he took one nitro at 2200 which relieved the pain. Patient denies complaints on arrival. Borderline hypotensive on arrival, vital signs otherwise normal. Well perfused on exam, alert. No significant traumatic findings, grossly normal neurologic exam. Usual BP on [facility] record review from recent visits SBP 140's/150's. Given reassuring exam and patient's lack of complaints, low suspicion for significant traumatic injury, acute coronary syndrome, sepsis. No tachycardia, hypoxia, or shortness of breath to suggest pulmonary embolism; would not pursue further with dimer or CT imaging. Suspect it is possible he took more than one nitroglycerin; will treat his BP with aggressive fluid resuscitation 2L IVFB. Initial EKG with too much artifact to interpret; repeat with afib, appropriate rate, no ST segment or T wave abnormalities to suggest occlusive FL. CXR with no focal pneumonia or pneumothorax on my view, agree with radiology read below. Labs reviewed as below, CBC with mild anemia, no leukocytosis. VBG with pH 7.32, pCO2 23, bicarb 24. TSH normal. Initial troponin negative. ETOH negative. CMP with acute on chronic hyponatremia, Na of 123 (most recent prior at [facility] December 2022 is 131), likely MIMI with cr 2.6 (normal on most recent prior), borderline hypoglyccemia with glucose of 69. Given PO juice. Will repeat BMP after completion of his fluid bolus. Mag is low however given soft BP will hold off on repletion at this time. CT head independently reviewed, no large intracranial hemmoraghe on my view, agree with radiology read below. CT chest/abd/pelvis without contrast independently reviewed, no free fluid or obstruction on my view, agree with radiology read below. He does have erythema in his panus consistent with candidal rash; he states he has been using topical antifungals for this. I discussed these findings with Mr. Mortensen including his very low sodium; he emphatically states that he does not want to be hospitalized because he hates hospitals and over the past 50 years I've had enough of them. He has decision making capacity. Is amenable to staying in the ED for repeat bloodwork. Plan for repeat BMP after completion of fluids. Signed out to oncoming physician, plan to followup repeat BMP, reassess, discuss options with patient. Medical Records Medical records reviewed: Yes I reviewed the patient's medical records. Imaging Data Radiologic Study: Imaging: X-Ray Radiologist's impression: IMPRESSION: No acute intracranial hemorrhage. Radiologic Study #2: Imaging: X-Ray and CT Scan Radiologist's impression: IMPRESSION: No acute intracranial hemorrhage. Radiologic Study #3: Imaging: CT Scan Radiologist's impression: IMPRESSION: No acute findings. IMPRESSION: Non-specific swelling in the lower anterior abdominal wall. Correlate clinically for cellulitis. No focal collection Lab Data Lab results reviewed: Yes I reviewed the patient's lab results. Labs: Laboratory Tests Range/Units 07/24/23 05:45 WBC (4.4-10.8) 10^3/uL 5.14 RBC (4.36-5.78) 10^6/uL 3.21 L Hgb (13.5-17.5) g/dL 9.3 L Hct (40.0-50.0) % 28.1 L MCV (80-95) fL 88 MCH (27.0-33.0) pg 29.0 MCHC (32.0-36.0) % 33.1 RDW (11.8-14.1) % 15.2 H Plt Count (130-400) 10^3/uL 265 MPV (8.0-11.0) fL 8.8 Immature Gran % 0.4 Neutrophils % 59.1 Lymphocytes % 29.2 Monocytes % 9.1 Eosinophils % 1.6 Basophils % 0.6 Nucleated RBC % (0.0-0.3) % 0.0 Absolute Neutrophils (1.2-6.7) 10^3/uL 3.04 Absolute Lymphocytes (1.2-3.4) 10^3/uL 1.50 Absolute Monocytes (0.1-0.8) 10^3/uL 0.47 Absolute Eosinophils (0.0-0.7) 10^3/uL 0.08 Absolute Basophils (0.0-0.2) 10^3/uL 0.03 VBG pH (7.31-7.41) 7.32 VBG pCO2 (41-51) mmHg 46 VBG pO2 mmHg 32 VBG HCO3 (23-28) mmol/L 24 VBG Total CO2 (24-29) mmol/L 23 L VBG O2 Saturation % 55 VBG Base Excess (-2-3) mmol/L -3 L VBG Lactate (0.6-1.4) mmol/L 1.0 Sodium (136-145) mmol/L 123 L* Potassium (3.5-5.1) mmol/L 3.9 Chloride (98-107) mmol/L 90 L Carbon Dioxide (21.0-32.0) mmol/L 22.8 Anion Gap (3-11) mmol/L 10.2 BUN (7-18) mg/dL 33 H Creatinine (0.70-1.30) mg/dL 2.6 H Est GFR (CKD-EPI 2020) (mL/min/1.73m2) 24.78 Glucose (74-106) mg/dL 69 L Calcium (8.5-10.1) mg/dL 7.8 L Magnesium (1.8-2.4) mg/dL 1.1 L Total Bilirubin (0.2-1.0) mg/dL 0.6 AST (15-37) U/L 93 H ALT (16-63) U/L 53 Alkaline Phosphatase (46-116) U/L 84 Troponin I (< or =60) ng/L < 50 Total Protein (6.4-8.2) g/dL 6.1 L Albumin (3.4-5.0) g/dL 2.3 L TSH (0.36-3.74) uIU/mL 2.60 Ethyl Alcohol (<10) mg/dL < 3.0 Quality:SDOH Health Related Social Needs: No Data to Display PFSH All Active Problems (Updated 07/18/23 @ 00:05 by JOSE BENITO) Pain in joint, foot, left (Acute) Corns and callosities (Acute) Cellulitis (Acute) Venous (peripheral) insufficiency (Acute) PAD (peripheral artery disease) (Acute) Onychomycosis (Acute) Neuropathy (Acute) Atrial fibrillation (Chronic) Hearing loss (Acute) with subjective 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 Mononeuritis (Acute) Hyperlipidemia (Acute) Essential (primary) hypertension (Acute) BPH (benign prostatic hyperplasia) (Chronic) ADHD (Acute) ASCVD (arteriosclerotic cardiovascular disease) (Acute) Long-term current use of opiate analgesic (Acute) Tobacco use disorder (Acute) Venous stasis dermatitis (Acute) Peripheral edema (Acute) 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 Frequent falls (Acute) Medical History Viral meningitis Complete rotator cuff tear right Cervical spondylosis Bursitis 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 Taking 10-12 oxycodone a day since Tuesday. Patient without complaints. Borderline hypotensive on arrival, did take at least one nitro yesterday evening for chest pain. Fluid responsive. Labs with MIMI, Na of 123, mg 1.1. Patient refuses hospitalization. Agrees to stay in the ED for for repeat labs, some additional management. Last updated by Ana Luisa Trinidad MD at 07/24/23 07:54 Discharge Plan Discharge Details Chief Complaint: Fall/Non TraumaCriteria Primary Care Provider: Brijesh Elliott ED Provider: Ana Luisa Trinidad Home Meds and New Rx's Prescriptions: No Action apixaban 5 mg tablet 5 mg PO BID atorvastatin 40 mg tablet 40 mg PO DAILY clotrimazole 1 % cream 1 applic topical BID lisinopril 2.5 mg tablet 2.5 mg PO DAILY naloxone 4 mg/actuation spray,non-aerosol 4 mg intranasal Q3M PRN Rx Instructions: spray 1 dose into ONE nostril; alternate nostrils w each dose until help arrives omeprazole 20 mg capsule,delayed release(DR/EC) 20 mg PO BID venlafaxine 37.5 mg capsule,extended release 24hr 37.5 mg PO DAILY zolpidem 5 mg tablet 5 mg PO QHS multivitamin Tablet 1 tab PO DAILY ketoconazole 2 % cream 1 applic topical DAILY Qty: 60 3RF Rx Instructions: apply to toenails once daily urea 40 % cream 1 applic topical BID Qty: 28 3RF Rx Instructions: apply to feet, calluses and toenails. trazodone 100 MG tablet 100 mg PO HS oxycodone 5 mg tablet 10 mg PO TID PRN (Reason: pain) terazosin 2 MG capsule 2 mg PO HS
--- NOTE | 2023-07-24 06:57 | DI.VRAD_ITS ---
PROCEDURE INFORMATION: Exam: XR Chest Exam date and time: 07/24/2023 6:22 AM Age: 77 years old Clinical indication: Other: Hypotension TECHNIQUE: Imaging protocol: Radiologic exam of the chest. Views: 1 view. COMPARISON: CT THORACIC LUMBAR SPINE WO 06/17/2023 12:29 PM FINDINGS: Tubes, catheters and devices: Multiple wires and tubes are appreciated, presumed outside the patient. Clip appreciated over the right upper quadrant. Lungs: Diffuse increase in interstitial markings without focal consolidation. Pleural spaces: Unremarkable. No pleural effusion. No pneumothorax. Heart/Mediastinum: Right aspect of the cardiomediastinal silhouette demonstrates double density. Vasculature: Aortic knob calcification. Bones/joints: Plate and screw fixation hardware of the left clavicle, without evidence for acute surgical complication. Extensive osteo arthritis. IMPRESSION: 1. Double density sign of the cardiomediastinal silhouette suggesting chamber cardiomegaly. Echocardiogram can be obtained for definitive assessment. 2. Diffuse increase in interstitial lung markings. No focal consolidation. Dictated and Authenticated by: Cipriano Zapata MD. Ordering:MEREDITH Orosco MD
--- NOTE | 2023-07-24 07:00 | DI.VRAD_ITS ---
PROCEDURE INFORMATION: Exam: CT Head Without Contrast Exam date and time: 07/24/2023 6:47 AM Age: 77 years old Clinical indication: Other: Fall on blooothinners; Patient HX: Fall on bloodthinners TECHNIQUE: Imaging protocol: Computed tomography of the head without contrast. COMPARISON: CT HEAD CERVICAL SPINE WO 12/27/2022 4:32 AM FINDINGS: Brain: Chronic cerebellar infarctions Mild volume loss No hemorrhage. Mild white matter disease. No mass effect. Cerebral ventricles: No ventriculomegaly. Paranasal sinuses: Polypoid secretions in the left maxillary sinus No fluid levels. Mastoid air cells: Visualized mastoid air cells are well aerated. Bones/joints: Unremarkable. No acute fracture. Soft tissues: Unremarkable. IMPRESSION: No acute intracranial hemorrhage. Dictated and Authenticated by: Dannie Mejía MD. Ordering:MEREDITH Orosco MD
--- NOTE | 2023-07-24 07:13 | DI.VRAD_ITS ---
PROCEDURE INFORMATION: Exam: CT Chest Without Contrast; Diagnostic Exam date and time: 07/24/2023 6:49 AM Age: 77 years old Clinical indication: Other: Hypotension TECHNIQUE: Imaging protocol: Diagnostic computed tomography of the chest without contrast. COMPARISON: XR PORTABLE CHEST AP 07/24/2023 6:22 AM FINDINGS: Lungs: Minimal scarring emphysema No consolidation. No masses. Pleural spaces: Unremarkable. No pneumothorax. No pleural effusion. Heart: Coronary calcifications. No cardiomegaly. No pericardial effusion. Lymph nodes: Unremarkable. No enlarged lymph nodes. Vasculature: Unremarkable. No aortic aneurysm. Bones/joints: Degenerative changes in the spine. No acute fracture. Soft tissues: Unremarkable. IMPRESSION: No acute findings. PROCEDURE INFORMATION: Exam: CT Abdomen And Pelvis Without Contrast Exam date and time: 07/24/2023 6:49 AM Age: 77 years old Clinical indication: Other: Hypotension TECHNIQUE: Imaging protocol: Computed tomography of the abdomen and pelvis without contrast. COMPARISON: CT THORACIC LUMBAR SPINE WO 06/17/2023 12:29 PM FINDINGS: Liver: Normal. No mass. Gallbladder and bile ducts: Normal. No calcified stones. No ductal dilation. Pancreas: Normal. No ductal dilation. Spleen: Normal. No splenomegaly. Adrenal glands: Normal. No mass. Kidneys and ureters: Normal. No hydronephrosis. Stomach and bowel: Unremarkable. No obstruction. No mucosal thickening. Appendix: No evidence of appendicitis. Intraperitoneal space: Unremarkable. No free air. No significant fluid collection. Vasculature: Unremarkable. No abdominal aortic aneurysm. Lymph nodes: Unremarkable. No enlarged lymph nodes. Urinary bladder: Unremarkable as visualized. Reproductive: Unremarkable as visualized. Bones/joints: Degenerative changes spine. No acute fracture. Soft tissues: Swelling in the lower anterior abdominal wall and small fluid IMPRESSION: Non-specific swelling in the lower anterior abdominal wall. Correlate clinically for cellulitis. No focal collection Dictated and Authenticated by: Dannie Mejía MD. Ordering:MEREDITH Orosco MD
[2023-07-24] MEDS: MAGNESIUM SULFATE 2 GM/50 ML BAG IVPB (08:05)
[2023-07-24 10:19] LABS: Anion Gap 9.3 mmol/L (3-11); BUN 30 mg/dL (7-18); CO2 22.7 mmol/L (21.0-32.0); CREATININE 2.2 mg/dL (0.70-1.30); Calcium 7.6 mg/dL (8.5-10.1); Chloride 94 mmol/L (98-107); Estimated GFR 30.28 (mL/min/1.73m2); Glucose 67 mg/dL (74-106); Magnesium 1.5 mg/dL (1.8-2.4); Potassium 3.9 mmol/L (3.5-5.1); Sodium 126 mmol/L (136-145); Troponin I < 50 ng/L (< or =60)
[2023-07-24] MEDS: Dextrose 25%-Water 10 ML SYR IVP (10:34)
--- NOTE | 2023-07-24 11:57 | ED.PROG_ITS ---
Date of service: 07/24/23 Time of Service: 11:57 Medical Decision Making Care was signed out to me by Dr. Trinidad, please see her documentation regarding initial ED presentation course. Plan at signout was to reassess patient after additional labs. Patient reassessed and exhibiting dystonia but mentating well. Unclear etiology for dystonia. Patient was given IV magnesium. Repeat labs reviewed and magnesium level has improved. Sodium has improved. Creatinine has improved. Patient remains hypoglycemic. Patient was given dextrose and glucose improved. Plan for hospitalization for continued treatment given significant electrolyte abnormalities, MIMI, frequent falls and chest pain. I had a discussion with the patient about my diagnostic/treatment plan. Patient declines plan and wishes to leave against medical advise. I reiterated my concerns him and explained the risks of leaving prior to completion of workup and treatment. I specifically emphasized the possibility of life-threatening or lifestyle modifying disease that would not be appropriately treated if they leave. Patient verbalized understanding of my concerns and the potential for life threatening or lifestyle modifying disease. Patient has capacity to make informed decision. I again explained my concerns and urged the patient to stay for treatment as outlined. Patient continued to refuse. I then discussed potential less ideal alternatives to diagnostic/treatment plan as outlines and patient refused. I recommended that the patient follow-up with primary care physician AIDAN or return to the Emergency Department at any time for further treatment. I am concerned for opioid use disorder. Lab Data Lab results reviewed: Yes I reviewed the patient's lab results. Labs: Laboratory Tests Range/Units 07/24/23 07/24/23 07/24/23 05:45 09:56 09:56 WBC (4.4-10.8) 10^3/uL 5.14 RBC (4.36-5.78) 10^6/uL 3.21 L Hgb (13.5-17.5) g/dL 9.3 L Hct (40.0-50.0) % 28.1 L MCV (80-95) fL 88 MCH (27.0-33.0) pg 29.0 MCHC (32.0-36.0) % 33.1 RDW (11.8-14.1) % 15.2 H Plt Count (130-400) 10^3/uL 265 MPV (8.0-11.0) fL 8.8 Immature Gran % 0.4 Neutrophils % 59.1 Lymphocytes % 29.2 Monocytes % 9.1 Eosinophils % 1.6 Basophils % 0.6 Nucleated RBC % (0.0-0.3) % 0.0 Absolute Neutrophils (1.2-6.7) 10^3/uL 3.04 Absolute Lymphocytes (1.2-3.4) 10^3/uL 1.50 Absolute Monocytes (0.1-0.8) 10^3/uL 0.47 Absolute Eosinophils (0.0-0.7) 10^3/uL 0.08 Absolute Basophils (0.0-0.2) 10^3/uL 0.03 VBG pH (7.31-7.41) 7.32 VBG pCO2 (41-51) mmHg 46 VBG pO2 mmHg 32 VBG HCO3 (23-28) mmol/L 24 VBG Total CO2 (24-29) mmol/L 23 L VBG O2 Saturation % 55 VBG Base Excess (-2-3) mmol/L -3 L VBG Lactate (0.6-1.4) mmol/L 1.0 Sodium (136-145) mmol/L 123 L* 126 L Potassium (3.5-5.1) mmol/L 3.9 3.9 Chloride (98-107) mmol/L 90 L 94 L Carbon Dioxide (21.0-32.0) mmol/L 22.8 22.7 Anion Gap (3-11) mmol/L 10.2 9.3 BUN (7-18) mg/dL 33 H 30 H Creatinine (0.70-1.30) mg/dL 2.6 H 2.2 H Est GFR (CKD-EPI 2020) (mL/min/1.73m2) 24.78 30.28 Glucose (74-106) mg/dL 69 L 67 L Calcium (8.5-10.1) mg/dL 7.8 L 7.6 L Magnesium (1.8-2.4) mg/dL 1.1 L 1.5 L Cancelled Total Bilirubin (0.2-1.0) mg/dL 0.6 AST (15-37) U/L 93 H ALT (16-63) U/L 53 Alkaline Phosphatase (46-116) U/L 84 Troponin I (< or =60) ng/L < 50 Cancelled Total Protein (6.4-8.2) g/dL 6.1 L Albumin (3.4-5.0) g/dL 2.3 L TSH (0.36-3.74) uIU/mL 2.60 Ethyl Alcohol (<10) mg/dL < 3.0 Range/Units 07/24/23 09:56 WBC (4.4-10.8) 10^3/uL RBC (4.36-5.78) 10^6/uL Hgb (13.5-17.5) g/dL Hct (40.0-50.0) % MCV (80-95) fL MCH (27.0-33.0) pg MCHC (32.0-36.0) % RDW (11.8-14.1) % Plt Count (130-400) 10^3/uL MPV (8.0-11.0) fL Immature Gran % Neutrophils % Lymphocytes % Monocytes % Eosinophils % Basophils % Nucleated RBC % (0.0-0.3) % Absolute Neutrophils (1.2-6.7) 10^3/uL Absolute Lymphocytes (1.2-3.4) 10^3/uL Absolute Monocytes (0.1-0.8) 10^3/uL Absolute Eosinophils (0.0-0.7) 10^3/uL Absolute Basophils (0.0-0.2) 10^3/uL VBG pH (7.31-7.41) VBG pCO2 (41-51) mmHg VBG pO2 mmHg VBG HCO3 (23-28) mmol/L VBG Total CO2 (24-29) mmol/L VBG O2 Saturation % VBG Base Excess (-2-3) mmol/L VBG Lactate (0.6-1.4) mmol/L Sodium (136-145) mmol/L Potassium (3.5-5.1) mmol/L Chloride (98-107) mmol/L Carbon Dioxide (21.0-32.0) mmol/L Anion Gap (3-11) mmol/L BUN (7-18) mg/dL Creatinine (0.70-1.30) mg/dL Est GFR (CKD-EPI 2020) (mL/min/1.73m2) Glucose (74-106) mg/dL Calcium (8.5-10.1) mg/dL Magnesium (1.8-2.4) mg/dL Total Bilirubin (0.2-1.0) mg/dL AST (15-37) U/L ALT (16-63) U/L Alkaline Phosphatase (46-116) U/L Troponin I (< or =60) ng/L < 50 Total Protein (6.4-8.2) g/dL Albumin (3.4-5.0) g/dL TSH (0.36-3.74) uIU/mL Ethyl Alcohol (<10) mg/dL Quality:[facility] Health Related Social Needs: No Data to Display Sign Out Sign Out Data: Sign Out Comment: 77yo M, frequent falls, presenting via EMS after fall. Taking 10-12 oxycodone a day since Tuesday. Patient without complaints. Borderline hypotensive on arrival, did take at least one nitro yesterday evening for chest pain. Fluid responsive. Labs with MIMI, Na of 123, mg 1.1. Patient refuses hospitalization. Agrees to stay in the ED for for repeat labs, some additional management. Last updated by Ana Luisa Trinidad MD at 07/24/23 07:54 Discharge Plan Disposition Patient Disposition: Against Medical Advice Discharge Details Clinical Impression: Frequent falls, Acute hyponatremia, Hypomagnesemia, Anemia, Opioid use disorder, Noncompliance with medication regimen, MIMI (acute kidney injury), Hypocalcemia, Dystonia Primary Care Provider: Brijesh Elliott ED Provider: Dioni Rojas Home Meds and New Rx's Prescriptions: New naloxone [Narcan] 4 mg/actuation spray,non-aerosol 4 mg intranasal Q3M PRNQty: 2 0RF Rx Instructions: spray 1 dose into ONE nostril; alternate nostrils w each dose until help arrives No Action apixaban 5 mg tablet 5 mg PO BID atorvastatin 40 mg tablet 40 mg PO DAILY lisinopril 2.5 mg tablet 10 mg PO DAILY naloxone 4 mg/actuation spray,non-aerosol 4 mg intranasal Q3M PRN Rx Instructions: spray 1 dose into ONE nostril; alternate nostrils w each dose until help arrives omeprazole 20 mg capsule,delayed release(DR/EC) 20 mg PO BID Hold Instructions: Changed by Provider venlafaxine 37.5 mg capsule,extended release 24hr 37.5 mg PO DAILY zolpidem 5 mg tablet 5 mg PO QHS multivitamin Tablet 1 tab PO DAILY trazodone 100 MG tablet 100 mg PO HS oxycodone 5 mg tablet 10 mg PO TID PRN (Reason: pain) furosemide 40 mg tablet 40 mg PO DAILY terazosin 2 MG capsule 2 mg PO HS Discharge Instructions Instructions: Naloxone (Into the nose), Fall Prevention for Older Adults (ED), Against Medical Advice (ED), Narcotic Use Disorder (ED) Additional Instructions: You are leaving AGAINST MEDICAL ADVICE. Please return to the ER at any time for further workup and treatment as recommended. Please follow-up with your doctor soon as possible. Referrals: Brijesh Elliott [Primary Care Provider] - Discharge Data Discharge Date/Time-TO BE ENTERED AT DEPARTURE: 07/24/23 13:10
--- NOTE | 2023-07-24 16:45 | NUR.NOTE ---
Referral given to Care Management for 1. to PCP, multiple electrolyte abnormalities, fall, left ED AMA. AIDAN. 2. to [facility], opioid risk disorder oxycodone. This week. Nursing Note:
== END 2023-07-24 13:10 | disposition left against medical advice (07) ==
PROVIDERS: Student in an Organized Health Care Education/Training Program; Emergency Provider Student in an Organized Health Care Education/Training Program; PCP Internal Medicine
DX: E87.1 Hypo-osmolality and hyponatremia (principal); E83.42 Hypomagnesemia; D64.9 Anemia, unspecified; F11.90 Opioid use, unspecified, uncomplicated; E83.51 Hypocalcemia; G24.9 Dystonia, unspecified; T45.516A Underdosing of anticoagulants, initial encounter; I48.91 Unspecified atrial fibrillation; I10 Essential (primary) hypertension; E78.5 Hyperlipidemia, unspecified; I25.10 Atherosclerotic heart disease of native coronary artery without angina pectoris; F17.210 Nicotine dependence, cigarettes, uncomplicated; Z91.81 History of falling; Z53.29 Procedure and treatment not carried out because of patient's decision for other reasons; Z91.128 Patient's intentional underdosing of medication regimen for other reason; W06.XXXA Fall from bed, initial encounter; Y93.89 Activity, other specified; Y92.013 Bedroom of single-family (private) house as the place of occurrence of the external cause
CPT/HCPCS: 00123; 36415; 71250; 80048; 80053; 82805; 82962; 93005; 96360; 96361; 99285; 70450; 71045; 74176; 80320; 83605; 83735; 84443; 84484; 85025; 93010; 99284; J3475

== ENCOUNTER 2023-09-23 15:26 | Emergency (ER) | payer OTHER, SELFPAY ==
[2023-09-23 15:32] VITALS: BP 154/81; PULSE 100; RESP 16; TEMP 36.4
--- NOTE | 2023-09-23 15:45 | RT.EKG_ITS ---
APPROVED REPORT Exam: Resting ECG Reason for Exam: dizziness Patient Location: E HR:85 bpm ECG Measurements Heart Rate 85 AXIS GA [id number] P [id number] QRSd 94 QRS 26 QT 378 T 37 QTc 450 Conclusion Atrial fibrillation...V-rate 72-108, irreg A-activity Narrow complex rate controlled atrial fibrillation at a rate of 85. Normal axis. QTc within normal limits. No ST segment abnormalities. T wave flattening in aVL. Compared to prior dated earlier thi s year no acute changes. Atrial fibrillation is persistent.
--- NOTE | 2023-09-23 16:00 | DI.RAD_ITS ---
Exam(s) XR CHEST 2V PA LATERAL EXAM: XR CHEST 2V PA LATERAL CLINICAL HISTORY: wheezing TECHNIQUE: 2D digital imaging was performed. Two views. COMPARISON: CT CT CHEST/ABD/PEL WO from 07/24/2023 CR,XR XR PORTABLE CHEST AP from 07/24/2023 FINDINGS: HEART: Mildly enlarged. Aorta: Tortuous. PULMONARY VASCULATURE: Normal. LUNGS: Increased interstitial markings and pulmonary vascular prominence of compared with the previou s exam suspicious for mild CHF. Minimal blunting at the costophrenic angles. PLEURAL SPACE: No pleural effusion or pneumothorax. BONE:Fixation plate in left clavicle. Soft tissues: Unremarkable. IMPRESSION: Mild CHF. DATA REPOSITORY: RADIATION DOSE DELIVERED:
--- NOTE | 2023-09-23 16:00 | DI.CT_ITS ---
Exam(s) CT HEAD CERVICAL SPINE WO EXAM: CT HEAD CERVICAL SPINE WO CLINICAL HISTORY: fall,HI, anticoag. TECHNIQUE: Imaging Protocol: Axial computed tomography images with coronal and sagittal reformatted images were created and reviewed COMPARISON: CT CT HEAD WO from 07/24/2023 FINDINGS: Head CT Ventricles and Extra axial spaces: Normal in size and morphology for the patient's age. Hemorrhage: None. Cerebral parenchyma: No evidence of mass or acute infarct. Mild atrophy. White matter changes of sm all vessel disease, stable from prior. Midline shift: None. Brainstem/Cerebellum: Normal. Calvarium: Normal. Visualized Paranasal sinuses/Mastoids: Clear. Soft tissues: Unremarkable. Cervical Spine CT Exam mildly limited by motion. BONES: Vertebral body heights are maintained. Alignment is normal. There is no evidence of acute frac ture. Degenerative disc changes and facet degenerative changes are seen . SOFT TISSUES: No paraspinal hematoma. The airway appears intact. No pneumothorax is seen at the lung apices. Increased interstitial markings. IMPRESSION: Head CT: No acute abnormality. C-spine CT: Degenerative changes, no acute abnormality. RADIATION DOSE DELIVERED: Total DLP DATA REPOSITORY: All CT scans at this facility are submitted to the National Radiology Data Registry (NRDR) Dose Index Registry (DIR) with the [employer] (A[employer]). RADIATION OPTIMIZATION: All CT scans at this facility use at least one of these dose optimization te chniques: automated exposure control; mA and/or kV adjustment per patient size (includes targeted exa ms where dose is matched to clinical indication); or iterative reconstruction.
[2023-09-23 16:51] LABS: Abs Immature Grans 0.02 10^3/uL (0.0-0.06); Absolute Basophil Count 0.04 10^3/uL (0.0-0.2); Absolute Eosinophil Count 0.48 10^3/uL (0.0-0.7); Absolute Lymphocyte Count 1.69 10^3/uL (1.2-3.4); Absolute Monocyte Count 0.47 10^3/uL (0.1-0.8); Absolute Neutrophil Count 4.18 10^3/uL (1.2-6.7); Basophils % 0.6; HCT 31.7 % (40.0-50.0); HGB 9.9 g/dL (13.5-17.5); Immature Grans % 0.3; Lymphocytes % 24.6; MCH 30.8 pg (27.0-33.0); MCHC 31.2 % (32.0-36.0); MCV 99 fL (80-95); MPV 8.5 fL (8.0-11.0); Monocytes % 6.8; Neutrophils % 60.7; Platelet Count 251 10^3/uL (130-400); RBC 3.21 10^6/uL (4.36-5.78); RDW 14.9 % (11.8-14.1); RDW-SD 54.5 fL; WBC 6.88 10^3/uL (4.4-10.8)
[2023-09-23 16:58] VITALS: BP 132/75; BP 134/87; BP 156/96; PULSE 106; PULSE 88; PULSE 95
[2023-09-23 17:10] LABS: ALT 14 U/L (16-63); AST 19 U/L (15-37); Albumin 2.6 g/dL (3.4-5.0); Alkaline Phosphatase 127 U/L (46-116); Anion Gap 3.4 mmol/L (3-11); BUN 8 mg/dL (7-18); Bilirubin, Total 0.5 mg/dL (0.2-1.0); CO2 32.6 mmol/L (21.0-32.0); CREATININE 0.8 mg/dL (0.70-1.30); Calcium 8.4 mg/dL (8.5-10.1); Chloride 101 mmol/L (98-107); Estimated GFR 91.72 (mL/min/1.73m2); Glucose 111 mg/dL (74-106); Magnesium 1.8 mg/dL (1.8-2.4); Potassium 4.1 mmol/L (3.5-5.1); Sodium 137 mmol/L (136-145); Total Protein 6.9 g/dL (6.4-8.2); Troponin I < 50 ng/L (< or =60)
[2023-09-23 17:18] LABS: NT-proBNP 4424 pg/mL (<300)
[2023-09-23 17:50] LABS: Bilirubin Negative (Negative); Blood Trace-lysed (Negative); Clarity Clear (Clear); Glucose Negative (Negative); Ketones Negative (Negative); Leukocyte Esterase Small (Negative); Nitrite Negative (Negative)
[2023-09-23 17:54] LABS: RBC 0-2 HPF (0-2)
[2023-09-23 17:55] LABS: Bacteria Rare HPF (Negative); C & S Indicated? No; Casts Negative LPF (Negative); Crystals Negative HPF (Negative); Epithelial Cells Negative HPF (Negative); Mucus Negative (Negative)
--- NOTE | 2023-09-23 18:21 | ED.GENADUL_ITS ---
Discharge Plan Disposition Patient Disposition: Home Condition: Stable Discharge Details Clinical Impression: Head injury, Edema, peripheral, Anemia, CHF (congestive heart failure) Primary Care Provider: Brijesh Elliott ED Provider: Toshia Vilchis Home Meds and New Rx's Prescriptions: New furosemide 40 mg tablet 40 mg PO BID PRNQty: 14 0RF Rx Instructions: take 40 mg in morning and 20 mg in evening Continued apixaban 5 mg tablet 5 mg PO BID atorvastatin 40 mg tablet 40 mg PO DAILY lisinopril 2.5 mg tablet 10 mg PO DAILY naloxone 4 mg/actuation spray,non-aerosol 4 mg intranasal Q3M PRN Rx Instructions: spray 1 dose into ONE nostril; alternate nostrils w each dose until help arrives omeprazole 20 mg capsule,delayed release(DR/EC) 20 mg PO BID Hold Instructions: Changed by Provider venlafaxine 37.5 mg capsule,extended release 24hr 37.5 mg PO DAILY zolpidem 5 mg tablet 5 mg PO QHS multivitamin Tablet 1 tab PO DAILY trazodone 100 MG tablet 100 mg PO HS terazosin 2 MG capsule 2 mg PO HS Discontinued furosemide 40 mg tablet 40 mg PO DAILY Discharge Instructions Instructions: Heart Failure (ED), Pulmonary Edema (ED), Head Injury (ED), Anemia (ED) Additional Instructions: Increase your Lasix to 40 mg in the morning and 20 mg at night Elevate your legs is much as possible and recommend NARCISO stockings Follow-up with your doctor next week for reassessment Return earlier should you have new or worsening complaints Referrals: Brijesh Elliott [Primary Care Provider] - 1 week Discharge Data Discharge Date/Time-TO BE ENTERED AT DEPARTURE: 09/23/23 18:31 HPI General Date/Time Provider Initiated Documentation: 09/23/23 15:36 . HPI Narrative: This 77-year-old male with history of coronary artery disease, hyperlipidemia, atrial fibrillation, chronic anticoagulation presents with report of headache, frequent falls, last fall approximately 3 weeks ago. Sent in secondary to persistent mild headache since fall with lightheadedness intermittently although patient states he was taken off Flexeril approximately a week ago and feeling marked improvement in symptoms. Denies any falls within the last week. Denies any chest pain or shortness of breath. Does state he has had some increased peripheral edema. Denies fever or chills. Denies any orthopnea. Related Data Home Medications Medication Instructions Recorded Confirmed trazodone 100 mg tablet 100 mg PO HS 08/09/13 09/23/23 terazosin 2 mg capsule 2 mg PO HS 09/03/16 09/23/23 apixaban 5 mg tablet 5 mg PO BID 02/06/23 09/23/23 atorvastatin 40 mg tablet 40 mg PO DAILY 02/06/23 09/23/23 lisinopril 2.5 mg tablet 10 mg PO DAILY 02/06/23 09/23/23 multivitamin 1 tab PO DAILY 02/06/23 09/23/23 naloxone 4 mg/actuation nasal spray 4 mg intranasal Q3M PRN 02/06/23 07/24/23 omeprazole 20 mg capsule,delayed 20 mg PO BID 02/06/23 09/23/23 release venlafaxine 37.5 mg 37.5 mg PO DAILY 02/06/23 09/23/23 capsule,extended release 24 hr zolpidem 5 mg tablet 5 mg PO QHS 02/06/23 09/23/23 furosemide 40 mg tablet 40 mg PO BID PRN #14 tabs 09/23/23 Previous Rx's Medication Instructions Recorded furosemide 40 mg tablet 40 mg PO BID PRN #14 tabs 09/23/23 Allergies Allergy/AdvReac Type Severity Reaction Status Date / Time fluticasone Allergy Unknown Headache Verified 09/23/23 18:08 gabapentin Allergy Unknown Psychosis Verified 09/23/23 18:08 pregabalin Allergy Unknown Psychosis Verified 09/23/23 18:08 doxycycline AdvReac Intermediate vomiting Verified 09/23/23 18:08 morphine AdvReac Unknown Psychosis Verified 09/23/23 18:08 General Stated Complaint: Fall/Non TraumaCriteria HAROLDO: 3 Course Vital Signs Vital signs: Vital Signs Temperature 36.4 C L 09/23/23 15:32 Pulse 100 H 09/23/23 15:32 Respiratory Rate 16 09/23/23 15:32 Blood Pressure 154/81 H 09/23/23 15:32 Temperature 36.4 C L 09/23/23 15:32 Temperature Source Temporal Artery Scan 09/23/23 15:32 Pulse 88 09/23/23 16:58 Respiratory Rate 16 09/23/23 15:32 Respiratory Effort Normal 09/23/23 16:10 Blood Pressure 132/75 04/05/24 16:58 Blood Pressure Position Sitting 09/23/23 15:32 Oxygen Delivery Method Room Air 09/23/23 15:32 Oxygen Flow Rate 0 09/23/23 15:32 Lab/Test Results Lab/Test Results: Laboratory Tests Range/Units 09/23/23 09/23/23 16:42 17:45 WBC (4.4-10.8) 10^3/uL 6.88 RBC (4.36-5.78) 10^6/uL 3.21 L Hgb (13.5-17.5) g/dL 9.9 L Hct (40.0-50.0) % 31.7 L MCV (80-95) fL 99 H MCH (27.0-33.0) pg 30.8 MCHC (32.0-36.0) % 31.2 L RDW (11.8-14.1) % 14.9 H Plt Count (130-400) 10^3/uL 251 MPV (8.0-11.0) fL 8.5 Immature Gran % 0.3 Neutrophils % 60.7 Lymphocytes % 24.6 Monocytes % 6.8 Eosinophils % 7.0 Basophils % 0.6 Nucleated RBC % (0.0-0.3) % 0.0 Absolute Neutrophils (1.2-6.7) 10^3/uL 4.18 Absolute Lymphocytes (1.2-3.4) 10^3/uL 1.69 Absolute Monocytes (0.1-0.8) 10^3/uL 0.47 Absolute Eosinophils (0.0-0.7) 10^3/uL 0.48 Absolute Basophils (0.0-0.2) 10^3/uL 0.04 Sodium (136-145) mmol/L 137 Potassium (3.5-5.1) mmol/L 4.1 Chloride (98-107) mmol/L 101 Carbon Dioxide (21.0-32.0) mmol/L 32.6 H Anion Gap (3-11) mmol/L 3.4 BUN (7-18) mg/dL 8 Creatinine (0.70-1.30) mg/dL 0.8 Est GFR (CKD-EPI 2020) (mL/min/1.73m2) 91.72 Glucose (74-106) mg/dL 111 H Calcium (8.5-10.1) mg/dL 8.4 L Magnesium (1.8-2.4) mg/dL 1.8 Total Bilirubin (0.2-1.0) mg/dL 0.5 AST (15-37) U/L 19 ALT (16-63) U/L 14 L Alkaline Phosphatase (46-116) U/L 127 H Troponin I (< or =60) ng/L < 50 NT-Pro-B Natriuret Pep (<300) pg/mL 4424 H Total Protein (6.4-8.2) g/dL 6.9 Albumin (3.4-5.0) g/dL 2.6 L Urine Color (Yellow) Yellow Urine Clarity (Clear) Clear Urine pH (5-8) 6.0 Ur Specific [place] (1.005-1.025) 1.010 Urine Protein (Neg-Trace) mg/dL Negative Urine Ketones (Negative) mg/dL Negative Urine Blood (Negative) Trace-lysed H Urine Nitrite (Negative) Negative Urine Bilirubin (Negative) Negative Urine Urobilinogen (Up to 0.2) mg/dL 1.0 H Ur Leukocyte Esterase (Negative) Small H Urine RBC (0-2) HPF 0-2 Urine WBC (0-5) HPF 3-5 Ur Epithelial Cells (Negative) HPF Negative Urine Crystals (Negative) HPF Negative Urine Bacteria (Negative) HPF Rare Urine Casts (Negative) LPF Negative Urine Mucus (Negative) Negative Ur Culture Indicated? No Urine Glucose (Negative) mg/dL Negative Medical Decision Making This 77-year-old male presents with report of intermittent lightheadedness and dizziness with a fall 3 weeks ago, sent in for CT and blood work [facility] On arrival patient is alert and oriented x 4, GCS 15, orthostatics negative No visible sign of trauma, actually feeling improvement since Flexeril was removed from his medication list a week ago CT head and cervical spine does not show evidence of acute abnormality per radiology interpretation my review Diagnostic blood work stable for patient with baseline anemia actually improved Chemistry within normal limit, chest x-ray with evidence of mild CHF, BNP elevated, no comparison, 3+ pitting edema to bilateral lower extremities, no orthopnea, vital stable Will place on 60 mg of Lasix, increase by 20 mg and encouraged follow-up with primary care physician next week, ambulatory with steady gait, stable for discharge home at this time Pupils equal round reactive to light and accommodation, crackles at bases of rebecca ngs, no respiratory distress, no evidence of secondary infection of bilateral lower extremity, no abdominal tenderness, no cervical spine tenderness appreciated on exam, no visible signs of trauma to abdominal or pelvis region, no CVA tenderness Quality:SDOH Health Related Social Needs: No Data to Display PFSH All Active Problems (Updated 09/23/23 @ 18:07 by KEI Tracy) CHF (congestive heart failure) (Chronic) Anemia (Chronic) Edema, peripheral (Acute) Head injury (Acute) Pain in joint, foot, left (Acute) Corns and callosities (Acute) Cellulitis (Acute) Venous (peripheral) insufficiency (Acute) PAD (peripheral artery disease) (Acute) Onychomycosis (Acute) Neuropathy (Acute) Atrial fibrillation (Chronic) Hearing loss (Acute) with subjective 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 Mononeuritis (Acute) Hyperlipidemia (Acute) Essential (primary) hypertension (Acute) BPH (benign prostatic hyperplasia) (Chronic) ADHD (Acute) ASCVD (arteriosclerotic cardiovascular disease) (Acute) Long-term current use of opiate analgesic (Acute) Tobacco use disorder (Acute) Venous stasis dermatitis (Acute) Peripheral edema (Acute) 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 Frequent falls (Acute) Medical History Viral meningitis Complete rotator cuff tear right Cervical spondylosis Bursitis 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
[2023-09-23 18:23] VITALS: BP 171/87; PULSE 72; RESP 16; TEMP 36.1; O2SAT 100
== END 2023-09-23 18:31 | disposition home or self-care (01) ==
PROVIDERS: Emergency Medicine Emergency Medical Services; Emergency Provider Physician Assistant; PCP Internal Medicine
DX: R42 Dizziness and giddiness (principal); R51.9 Headache, unspecified; R60.9 Edema, unspecified; D64.9 Anemia, unspecified; I11.0 Hypertensive heart disease with heart failure; I50.9 Heart failure, unspecified; I25.10 Atherosclerotic heart disease of native coronary artery without angina pectoris; E78.5 Hyperlipidemia, unspecified; Z79.01 Long term (current) use of anticoagulants; F17.210 Nicotine dependence, cigarettes, uncomplicated; Z91.81 History of falling
CPT/HCPCS: 36415; 80053; 93005; 99285; 70450; 71046; 72125; 81003; 81015; 83735; 83880; 84484; 85025; 93010; 99284

== ENCOUNTER 2024-03-08 13:43 | Emergency (ER) | payer OTHER, SELFPAY ==
[2024-03-08 13:47] VITALS: BP 140/88; PULSE 86; RESP 14; TEMP 37; O2SAT 94
--- NOTE | 2024-03-08 14:16 | W.ED.GENAD ---
Discharge Plan Disposition Patient Disposition: Against Medical Advice Condition: Fair Discharge Details Clinical Impression: Cellulitis Primary Care Provider: Brijesh Elliott ED Provider: Esau Caruso Home Meds and New Rx's Prescriptions: New fluconazole 100 mg tablet 100 mg PO DAILY 10 Days Qty: 10 0RF clindamycin HCl 300 mg capsule 300 mg PO TID 7 Days Qty: 21 0RF No Action apixaban 5 mg tablet 5 mg PO BID atorvastatin 40 mg tablet 40 mg PO DAILY lisinopril 2.5 mg tablet 10 mg PO DAILY naloxone 4 mg/actuation spray,non-aerosol 4 mg intranasal Q3M PRN Rx Instructions: spray 1 dose into ONE nostril; alternate nostrils w each dose until help arrives omeprazole 20 mg capsule,delayed release(DR/EC) 20 mg PO BID zolpidem 5 mg tablet 5 mg PO QHS multivitamin Tablet 1 tab PO DAILY trazodone 100 MG tablet 100 mg PO HS buprenorphine HCl 2 mg tablet, sublingual 2 mg sublingual DAILY Rx Instructions: take 1/2 twice a day terazosin 2 MG capsule 2 mg PO HS furosemide 40 mg tablet 40 mg PO BID PRNQty: 14 0RF Rx Instructions: take 40 mg in morning and 20 mg in evening Discharge Instructions Additional Instructions: You have a serious skin infection of your legs and in your groin area. This needs to be treated with antifungal as well as antibiotics. You are electing to leave the hospital AGAINST MEDICAL ADVICE. It is advised that you stay in the hospital for IV treatment of this serious infection as it can worsen rapidly. Please take the medication as prescribed. Please take your Lasix as prescribed as well. You need to be reevaluated by your primary care provider within 1 day. HPI General Date/Time Provider Initiated Documentation: 03/08/24 13:57. Limitations to Documentation: no limitations. Information obtained by: patient and family (). HPI Narrative: 78-year-old gentleman with past medical history including venous insufficiency, PAD, CAD, hypertension presents for evaluation of leg redness and groin redness. He and his report that this has been ongoing for quite some time. It gets better and gets worse. It is not associated with any fever. reports that he is noncompliant with his Lasix or his compression socks. Bilateral lower legs have been very red, swollen and are draining clear fluid. reports that she just found out that his groin is also red. He states that this is been going on a while he denies any burning with urination or difficulty urinating. He does wear a diaper. He denies any pain in the area of redness. Related Data Home Medications ?Medication ?Instructions ?Recorded ?Confirmed trazodone 100 mg tablet 100 mg PO HS 08/09/13 03/08/24 terazosin 2 mg capsule 2 mg PO HS 09/03/16 03/08/24 apixaban 5 mg tablet 5 mg PO BID 02/06/23 03/08/24 atorvastatin 40 mg tablet 40 mg PO DAILY 02/06/23 03/08/24 lisinopril 2.5 mg tablet 10 mg PO DAILY 02/06/23 03/08/24 multivitamin 1 tab PO DAILY 02/06/23 03/08/24 naloxone 4 mg/actuation nasal spray 4 mg intranasal Q3M PRN 02/06/23 03/08/24 omeprazole 20 mg capsule,delayed 20 mg PO BID 02/06/23 03/08/24 release zolpidem 5 mg tablet 5 mg PO QHS 02/06/23 03/08/24 furosemide 40 mg tablet 40 mg PO BID PRN #14 tabs 09/23/23 03/08/24 buprenorphine HCl 2 mg sublingual 2 mg sublingual DAILY 03/08/24 03/08/24 tablet clindamycin HCl 300 mg capsule 300 mg PO TID 7 days #21 caps 03/08/24 fluconazole 100 mg tablet 100 mg PO DAILY 10 days #10 tabs 03/08/24 Previous Rx's ?Medication ?Instructions ?Recorded furosemide 40 mg tablet 40 mg PO BID PRN #14 tabs 09/23/23 clindamycin HCl 300 mg capsule 300 mg PO TID 7 days #21 caps 03/08/24 fluconazole 100 mg tablet 100 mg PO DAILY 10 days #10 tabs 03/08/24 Allergies Allergy/AdvReac Type Severity Reaction Status Date / Time fluticasone Allergy Unknown Headache Verified 03/08/24 13:52 gabapentin Allergy Unknown Psychosis Verified 03/08/24 13:52 pregabalin Allergy Unknown Psychosis Verified 03/08/24 13:52 doxycycline AdvReac Intermediate vomiting Verified 03/08/24 13:52 morphine AdvReac Unknown Psychosis Verified 03/08/24 13:52 General Stated Complaint: RashLesion HAROLDO: 3 Exam Narrative Exam Narrative: Review of Systems: All systems reviewed & are unremarkable except as noted in HPI and below Well-developed, no acute distress Afebrile NCAT RRR Unlabored respiratory effort, clear bilaterally Nondistended abdomen Bilateral upper lower extremities with bright red skin change, circumferential, there are several small blisters and open ulcerated wound, clear serosanguineous drainage The diaper is pulled down and he is noted to have bright red skin change in the inguinal folds, there is some slight erythema noted of the lower abdomen as well as the upper thighs, redness extends down through the groin, penis is erythematous and as well as scrotum, there is no appreciable crepitus or open wounds but there do appear to be some pitting divots in the skin Course Vital Signs Vital signs: Vital Signs Temperature 37.0 C 03/08/24 13:47 Pulse 86 03/08/24 13:47 Respiratory Rate 14 03/08/24 13:47 Blood Pressure 140/88 03/08/24 13:47 Pulse Oximetry 94 03/08/24 13:47 Temperature 37.0 C 03/08/24 13:47 Temperature Source Tympanic 03/08/24 13:47 Pulse 86 03/08/24 13:47 Respiratory Rate 14 03/08/24 13:47 Blood Pressure 140/88 03/08/24 13:47 Pulse Oximetry 94 03/08/24 13:47 Oxygen Delivery Method Room Air 03/08/24 13:47 Oxygen Flow Rate 0 03/08/24 13:47 Pain Level 8 03/08/24 13:47 Lab/Test Results Lab/Test Results: 03/08/24 14:10 Blood Blood Culture - Pending 03/08/24 14:10 Blood Blood Culture - Pending Medical Decision Making Emergent evaluation of skin changes. Initial differential includes cellulitis, necrotizing infection, Aguila's gangrene. The rash in the inguinal area does appear consistent with severe candidiasis. He does have ongoing venous stasis dermatitis peripheral edema that he is noncompliant with therapy for, today does appear to be infected and will likely need antibiotic therapy. He is afebrile. And hemodynamically stable. He is a poor historian and unable to tell me the exact onset of the significant changes. Will check lab work including infectious and inflammatory markers, get blood cultures and give a CT scan of his pelvis to evaluate for signs of necrotizing infection. Lab work reviewed. There is no significant leukocytosis. His hemoglobin of 9.9 is baseline. His ESR and CRP are slightly elevated., Procalcitonin is negative. His BMP is elevated though not significantly. He has not been compliant with his Lasix. CT scan of his pelvis was obtained and the radiology report was reviewed. There is concern for edema throughout the perineal region, but no abscess or gas tracking. I discussed the findings with the patient and I do recommend admission for IV treatment given the severity of his cellulitis and the involvement of the groin. However the patient would like to leave the hospital and is refusing admission. I had a long discussion with the patient regarding risks, benefits, and alternatives to my recommended treatment plan, which includes admission and IV treatment and the patient declined, voicing understanding of the risks but preferring instead to leave against medical advice. Some of the risks we specifically discussed included permanent disability or . I discussed with the patient that they were always welcome back to this department should they change their mind, and that regardless they should follow up with their primary care doctor at the soonest possible opportunity. All questions were answered and the patient left AMA in unchanged condition. Prescriptions were sent to the pharmacy and the patient was advised to start these medications tomorrow. Also recommended that he follow-up within 24 hours with his PCP. 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 Mononeuritis (Acute) Hyperlipidemia (Acute) Essential (primary) hypertension (Acute) BPH (benign prostatic hyperplasia) (Chronic) ADHD (Acute) ASCVD (arteriosclerotic cardiovascular disease) (Acute) Long-term current use of opiate analgesic (Acute) Tobacco use disorder (Acute) Venous stasis dermatitis (Acute) Peripheral edema (Acute) 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 Frequent falls (Acute) Medical History Viral meningitis Complete rotator cuff tear right Cervical spondylosis Bursitis 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
[2024-03-08 15:52] LABS: Abs Immature Grans 0.01 10^3/uL (0.0-0.06); Absolute Basophil Count 0.07 10^3/uL (0.0-0.2); Absolute Eosinophil Count 0.53 10^3/uL (0.0-0.7); Absolute Lymphocyte Count 1.86 10^3/uL (1.2-3.4); Absolute Monocyte Count 0.66 10^3/uL (0.1-0.8); Absolute Neutrophil Count 4.73 10^3/uL (1.2-6.7); Basophils % 0.9 %; Eosinophils % 6.7 %; HCT 31.2 % (40.0-50.0); HGB 9.9 g/dL (13.5-17.5); Immature Grans % 0.1 %; Lymphocytes % 23.7 %; MCH 29.7 pg (27.0-33.0); MCHC 31.7 % (32.0-36.0); MCV 94 fL (80-95); Monocytes % 8.4 %; Neutrophils % 60.2 %; RBC 3.33 10^6/uL (4.36-5.78); RDW 14.7 % (11.8-14.1); RDW-SD 50.8 fL; WBC 7.86 10^3/uL (4.4-10.8)
[2024-03-08 15:53] LABS: ESR 29 mm/hr (0-20)
[2024-03-08 16:02] LABS: INR 1.2 (0.9-1.1); Prothrombin Time 11.9 sec (9.1-11.1)
[2024-03-08 16:13] LABS: ALT 19 U/L (16-63); AST 23 U/L (15-37); Albumin 2.5 g/dL (3.4-5.0); Alkaline Phosphatase 120 U/L (46-116); Anion Gap 3.7 mmol/L (3-11); BUN 7 mg/dL (7-18); Bilirubin, Total 0.51 mg/dL (0.2-1.0); C-Reactive Protein 1.78 mg/dL (<or=0.5); CO2 32.3 mmol/L (21.0-32.0); CREATININE 0.8 mg/dL (0.70-1.30); Calcium 8.8 mg/dL (8.5-10.1); Chloride 97 mmol/L (98-107); Estimated GFR 91.15 (mL/min/1.73m2); Glucose 105 mg/dL (74-106); NT-proBNP 3238 pg/mL (<300); Potassium 3.9 mmol/L (3.5-5.1); Sodium 133 mmol/L (136-145); Total Protein 7.1 g/dL (6.4-8.2)
[2024-03-08 16:21] LABS: Procalcitonin < 0.1 ng/mL
[2024-03-08] MEDS: Furosemide 100 MG/10 ML VIAL 80 MG IVP (16:51)
[2024-03-08] MEDS: Omnipaque 350 MG/ML 100 ML BTL IJ (17:04)
[2024-03-08] MEDS: Normal Saline - Diluent 50 ML VIAL IJ (17:05)
--- NOTE | 2024-03-08 17:13 | DI.CT_ITS ---
Exam(s) CT PELVIC W EXAM: CT PELVIC W CLINICAL HISTORY: infection of perineum extend study to upper thighs. TECHNIQUE: Imaging Protocol: Axial computed tomography images with coronal and sagittal reformatted images were created and reviewed. CONTRAST MATERIAL: Intravenous: Omnipaque 350 Contrast volume:100 contrast route:IV - Oral: no COMPARISON: CT CT CHEST/ABD/PEL WO from 07/24/2023 FINDINGS: Bladder:Over distended. No gross wall thickening. No stones.No evidence of mass. Bowel: No obstruction or bowel wall thickening. Diverticulosis of the sigmoid. Appendix normal. N ormal quantity of stool. Peritoneal cavity: No ascites, collection or mesenteric inflammatory response. Reproductive: Prostate appears small. Edema in the scrotal sac. Testicles noted within the bilatera l inguinal canal which appear atrophied. Vasculature: No evidence of aortic or iliac artery aneurysm. Severe atherosclerotic changes. Severe stenosis at the origins of both iliac arteries. Bones: No acute findings. Degenerative changes in lower lumbar spine. Soft tissues: Diffuse edema in the soft tissues, similar to prior. Soft tissue thickening in the inf erior gluteal folds. No evidence of discrete abscess. IMPRESSION: Body wall edema. Thickening in the gluteal folds. No evidence of discrete abscess. Scrotal edema. RADIATION DOSE DELIVERED: Total DLP DATA REPOSITORY: All CT scans at this facility are submitted to the National Radiology Data Registry (NRDR) Dose Index Registry (DIR) with the [employer] (ACR). RADIATION OPTIMIZATION: All CT scans at this facility use at least one of these dose optimization te chniques: automated exposure control; mA and/or kV adjustment per patient size (includes targeted exa ms where dose is matched to clinical indication); or iterative reconstruction.
[2024-03-08] MEDS: CLINDAMYCIN 300 MG/50 ML BAG 100 MG IVPB (18:22)
== END 2024-03-08 19:45 | disposition left against medical advice (07) ==
PROVIDERS: Emergency Provider Emergency Medicine; PCP Internal Medicine
DX: L03.314 Cellulitis of groin (principal); I25.10 Atherosclerotic heart disease of native coronary artery without angina pectoris; I10 Essential (primary) hypertension; F17.210 Nicotine dependence, cigarettes, uncomplicated; Z79.01 Long term (current) use of anticoagulants; Z53.29 Procedure and treatment not carried out because of patient's decision for other reasons
CPT/HCPCS: 80053; 84145; 85652; 87040; 96365; 96375; 99285; 72193; 83880; 85025; 85610; 86140; 99284; J0736; J1450; J1940; J3490

== ENCOUNTER 2024-03-09 12:29 | Emergency (ER) | payer OTHER, SELFPAY ==
[2024-03-09 12:33] VITALS: BP 124/70; PULSE 95; RESP 18; TEMP 36.6; O2SAT 99
--- NOTE | 2024-03-09 12:42 | W.ED.GENAD ---
Discharge Plan Disposition Patient Disposition: Against Medical Advice Discharge Details Clinical Impression: Venous stasis dermatitis, Cellulitis, Candidiasis Primary Care Provider: Brijesh Elliott ED Provider: Gerson Carmona Home Meds and New Rx's Prescriptions: Continued apixaban 5 mg tablet 5 mg PO BID atorvastatin 40 mg tablet 40 mg PO DAILY lisinopril 2.5 mg tablet 10 mg PO DAILY naloxone 4 mg/actuation spray,non-aerosol 4 mg intranasal Q3M PRN Rx Instructions: spray 1 dose into ONE nostril; alternate nostrils w each dose until help arrives omeprazole 20 mg capsule,delayed release(DR/EC) 20 mg PO BID zolpidem 5 mg tablet 5 mg PO QHS multivitamin Tablet 1 tab PO DAILY trazodone 100 MG tablet 100 mg PO HS buprenorphine HCl 2 mg tablet, sublingual 2 mg sublingual DAILY Rx Instructions: take 1/2 twice a day fluconazole 100 mg tablet 100 mg PO DAILY 10 Days Qty: 10 0RF clindamycin HCl 300 mg capsule 300 mg PO TID 7 Days Qty: 21 0RF terazosin 2 MG capsule 2 mg PO HS furosemide 40 mg tablet 40 mg PO BID PRNQty: 14 0RF Rx Instructions: take 40 mg in morning and 20 mg in evening Discharge Instructions Additional Instructions: You are seen in the emergency department for your skin infection. It was recommended that you be hospitalized. You left AGAINST MEDICAL ADVICE. As we discussed there is a risk of worsening infection sepsis and . Please return to the emergency department if you develop fevers cannot eat or drink or any other concerns. Please take the antibiotics and the antifungal medications that have been prescribed to you yesterday. Discharge Data Discharge Date/Time-TO BE ENTERED AT DEPARTURE: 03/09/24 14:31 HPI General Date/Time Provider Initiated Documentation: 03/09/24 12:29. HPI Narrative: MDM This is a chronically ill normothermic not tachycardic 78-year-old diabetic male with severe candidiasis and significant stasis dermatitis bilaterally with concern for superimposed inguinal cellulitis for which patient will receive oral and IV antibiotics with antifungals following 2 sets of blood cultures. Given that his diabetes and tobacco I suspect that he will benefit from hospitalization to ensure that his ulcers do not worsen. Patient's CT scan yesterday which did not show gas. He has no pain out of proportion to suggest Aguila's gangrene so I do not feel he required a repeat CT scan. His inflammatory markers were markedly elevated yesterday and he did have significant inguinal edema most consistent with cellulitis. Will repeat labs and reach out to the hospitalist team with request for hospitalization. No fluctuance to suggest abscess. Not a dialysis patient so my suspicion for calciphylaxis is low. 2:15 PM Patient was found to be mildly hypomagnesemic. He did not have a leukocytosis but he did have normocytic anemia improved compared to prior. No thrombocytopenia. Comprehensive metabolic panel showing no MIMI. Mild hyperglycemia but no anion gap no significant decrease in bicarbonate not consistent with DKA. Marked hypoalbuminemia. I met with the patient as he requested to be discharged. I explained that there was a risk in discharging as well as planning on hospitalizing the patient. Patient will be driven home by his . I met with the patient and his in the home. She was concerned that he was going home. He was adamant about not wanted to stay in the emergency department. She will order picker/assembler antifungals and antibiotics at pharmacy. 1. I explained the current situation and condition to the patient. 2. I explained the recommended treatment for this condition ?hospitalization antifungals antibiotics monitoring 3. I explained the risk of not having the recommended treatment ? worsening infection sepsis 4. The patient understands this information has no questions, and repeated back this information. 5. The patient states that they need to leave and will return if his symptoms worsen 6. Mental status is lucid and the patient has decision-making capacity. 7. Patient is withdrawing his consent for care Chronic conditions affecting the care of the patient: Lower extremity edema diabetes History obtained from an outside historian: Patient's [place] [facility] [place] Medications: Vancomycin cefepime fluconazole and nystatin Social determinants of health affecting disposition: N/A Management discussed with: N/A Treatment/interventions considered: Hospitalization but deferred based on patient preference Response to therapies provided: N/A HPI This is a 78-year-old [id number] diabetic smoker arrived to the emergency department via private vehicle with his in the setting of worsening pain in his groin with increased redness in his lower extremities. Patient reports that he did not get picked up his antifungals and antibiotics. He he has had worsening discomfort in his groin. He denies fevers nausea vomiting chest pain and shortness of breath. Exam General: Chronically ill-appearing in no acute distress speaking in complete sentences. Head: Normocephalic, atraumatic. Eye: Extraocular eye movements intact. No conjunctival injection. No scleral icterus. Ear, nose, mouth, throat: Grossly normal inspection. Normal voice, handling secretions normally. Neck: Trachea midline. Cardiovascular: Well-perfused distal extremities. Respiratory: Nonlabored respiration. Gastrointestinal: Nondistended abdomen. Musculoskeletal: No edema. Moving all 4 extremities spontaneously. Skin: Erythematous bilateral lower extremities bright red circumferentially with open ulcerated areas and several blisters as shown in the photo that follows draining clear serosanguineous fluid. Patient has been beefy red changes in his bilateral inguinal folds. He has no signs of paraphimosis though he is uncircumcised. The redness tracks down to the groin. No crepitance. No open wounds. Neurologic: Alert and appropriate, no apparent acute deficits. Psychiatric: Mood and manner are appropriate. Grooming and personal hygiene are appropriate. Related Data Home Medications ?Medication ?Instructions ?Recorded ?Confirmed trazodone 100 mg tablet 100 mg PO HS 08/09/13 03/09/24 terazosin 2 mg capsule 2 mg PO HS 09/03/16 03/09/24 apixaban 5 mg tablet 5 mg PO BID 02/06/23 03/09/24 atorvastatin 40 mg tablet 40 mg PO DAILY 02/06/23 03/09/24 lisinopril 2.5 mg tablet 10 mg PO DAILY 02/06/23 03/09/24 multivitamin 1 tab PO DAILY 02/06/23 03/09/24 naloxone 4 mg/actuation nasal spray 4 mg intranasal Q3M PRN 02/06/23 03/09/24 omeprazole 20 mg capsule,delayed 20 mg PO BID 02/06/23 03/09/24 release zolpidem 5 mg tablet 5 mg PO QHS 02/06/23 03/09/24 furosemide 40 mg tablet 40 mg PO BID PRN #14 tabs 09/23/23 03/09/24 buprenorphine HCl 2 mg sublingual 2 mg sublingual DAILY 03/08/24 03/09/24 tablet clindamycin HCl 300 mg capsule 300 mg PO TID 7 days #21 caps 03/08/24 03/09/24 fluconazole 100 mg tablet 100 mg PO DAILY 10 days #10 tabs 03/08/24 03/09/24 Previous Rx's ?Medication ?Instructions ?Recorded furosemide 40 mg tablet 40 mg PO BID PRN #14 tabs 09/23/23 clindamycin HCl 300 mg capsule 300 mg PO TID 7 days #21 caps 03/08/24 fluconazole 100 mg tablet 100 mg PO DAILY 10 days #10 tabs 03/08/24 Allergies Allergy/AdvReac Type Severity Reaction Status Date / Time fluticasone Allergy Unknown Headache Verified 03/08/24 13:52 gabapentin Allergy Unknown Psychosis Verified 03/08/24 13:52 pregabalin Allergy Unknown Psychosis Verified 03/08/24 13:52 doxycycline AdvReac Intermediate vomiting Verified 03/08/24 13:52 morphine AdvReac Unknown Psychosis Verified 03/08/24 13:52 General Stated Complaint: Cellulitis HAROLDO: 3 Course Vital Signs Vital signs: Vital Signs Temperature 36.6 C 03/09/24 12:33 Pulse 95 H 03/09/24 12:33 Respiratory Rate 18 03/09/24 12:33 Blood Pressure 124/70 03/09/24 12:33 Pulse Oximetry 99 03/09/24 12:33 Temperature 36.6 C 03/09/24 12:33 Temperature Source Temporal Artery Scan 03/09/24 12:33 Pulse 95 H 03/09/24 12:33 Respiratory Rate 18 03/09/24 12:33 Blood Pressure 124/70 03/09/24 12:33 Blood Pressure Position Sitting 03/09/24 12:33 Pulse Oximetry 99 03/09/24 12:33 Oxygen Delivery Method Room Air 03/09/24 12:33 Oxygen Flow Rate 0 03/09/24 12:33 Medical Decision Making Quality:SDOH Health Related Social Needs: No Data to Display PFSH All Active Problems (Updated 03/09/24 @ 14:21 by Gerson Carmona MD) Candidiasis (Acute) Pain in joint, foot, left (Acute) Corns and callosities (Acute) Cellulitis (Acute) Venous (peripheral) insufficiency (Acute) PAD (peripheral artery disease) (Acute) Onychomycosis (Acute) Neuropathy (Acute) Atrial fibrillation (Chronic) Hearing loss (Acute) with subjective 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 Mononeuritis (Acute) Hyperlipidemia (Acute) Essential (primary) hypertension (Acute) BPH (benign prostatic hyperplasia) (Chronic) ADHD (Acute) ASCVD (arteriosclerotic cardiovascular disease) (Acute) Long-term current use of opiate analgesic (Acute) Tobacco use disorder (Acute) Venous stasis dermatitis (Acute) Peripheral edema (Acute) 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 Frequent falls (Acute) Medical History Viral meningitis Complete rotator cuff tear right Cervical spondylosis Bursitis 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
[2024-03-09 13:15] LABS: Abs Immature Grans 0.03 10^3/uL (0.0-0.06); Absolute Basophil Count 0.06 10^3/uL (0.0-0.2); Absolute Eosinophil Count 0.29 10^3/uL (0.0-0.7); Absolute Monocyte Count 0.68 10^3/uL (0.1-0.8); Basophils % 0.7 %; Eosinophils % 3.5 %; HCT 33.2 % (40.0-50.0); HGB 10.4 g/dL (13.5-17.5); Immature Grans % 0.4 %; MCH 29.4 pg (27.0-33.0); MCHC 31.3 % (32.0-36.0); MCV 94 fL (80-95); MPV 8.5 fL (8.0-11.0); Monocytes % 8.2 %; Neutrophils % 64.2 %; Platelet Count 298 10^3/uL (130-400); RBC 3.54 10^6/uL (4.36-5.78); RDW 14.6 % (11.8-14.1); RDW-SD 50.5 fL; WBC 8.26 10^3/uL (4.4-10.8)
[2024-03-09 13:45] LABS: ALT 19 U/L (16-63); AST 23 U/L (15-37); Albumin 2.6 g/dL (3.4-5.0); Alkaline Phosphatase 122 U/L (46-116); Anion Gap 5.9 mmol/L (3-11); BUN 12 mg/dL (7-18); CO2 32.1 mmol/L (21.0-32.0); Calcium 8.7 mg/dL (8.5-10.1); Chloride 95 mmol/L (98-107); Estimated GFR 77.52 (mL/min/1.73m2); Glucose 130 mg/dL (74-106); Magnesium 1.5 mg/dL (1.8-2.4); Potassium 3.5 mmol/L (3.5-5.1); Sodium 133 mmol/L (136-145); Total Protein 7.4 g/dL (6.4-8.2)
[2024-03-09] MEDS: Fluconazole 150 MG TAB PO (14:16)
[2024-03-09] MEDS: ceFAZolin 1 GM/50 ML BAG IVPB (14:22)
== END 2024-03-09 14:31 | disposition left against medical advice (07) ==
PROVIDERS: Emergency Provider Emergency Medicine; PCP Internal Medicine
DX: I87.2 Venous insufficiency (chronic) (peripheral) (principal); B37.9 Candidiasis, unspecified; E83.42 Hypomagnesemia; E11.628 Type 2 diabetes mellitus with other skin complications; Z53.21 Procedure and treatment not carried out due to patient leaving prior to being seen by health care provider
CPT/HCPCS: 36415; 80053; 87040; 96365; 99284; 83735; 85025; J0690

== ENCOUNTER 2024-03-23 21:35 | Emergency (ER) | payer OTHER, SELFPAY ==
[2024-03-23] VITALS (48 sets, daily range): BP systolic 119–130; BP diastolic 62–69; PULSE 73–103; RESP 18; TEMP 36.6; O2SAT 93–100
--- NOTE | 2024-03-23 21:45 | DI.CT_ITS ---
Exam(s) CT ABDOMEN PELVIS W EXAM: CT ABDOMEN PELVIS W CLINICAL HISTORY: RLQ abd pain. TECHNIQUE: Imaging Protocol: Axial computed tomography images with coronal and sagittal reformatted images were created and reviewed CONTRAST MATERIAL: Intravenous: Omnipaque 350 Contrast volume:100 ml Oral: no COMPARISON: CT CT CHEST/ABD/PEL WO from 07/24/2023 FINDINGS: ABDOMEN and PELVIS: Lung Bases: Distal esophageal wall thickening. Enlarged heart. mitral annular calcifications and co ronary artery calcifications. Liver: Normal density. No suspicious mass. Gallbladder and biliary tract: No radiodense calculus. No biliary dilation. Pancreas: Normal density. No abnormal calcifications or inflammatory process. No evidence of mass. Spleen: Normal. Kidneys: Normal size, contour and axis. No radiodense stones. No obstructive uropathy. No suspicious masses seen. Adrenal glands: Right adrenalectomy. Stable small low-density nodule left adrenal gland, consistent with benign adenoma.. Vasculature: Abdominal aorta non-dilated. Atherosclerotic changes. Soft tissues: Significant body wall edema, greater anteriorly. Small fatty containing right inguinal hernia. Bladder: Distended. No gross wall thickening. No calculi.No focal mass. Bowel: Stomach fluid-filled but not abnormally distended.. No obstruction. No bowel wall thickenin g. Appendix normal. Large quantity of fecal material noted in ascending and descending colon. Peritoneal cavity: No ascites. No focal collection. No mesenteric inflammatory response. Bones: Unremarkable for age. Reproductive organs: Unremarkable. Lymph nodes: No pathologically enlarged lymph nodes. IMPRESSION:: Wall thickening of the distal esophagus may indicate esophagitis. No evidence of perfo ration. Increased stool in ascending and descending colon which could indicate constipation. Normal appendix. Body wall edema. RADIATION DOSE DELIVERED: Total DLP DATA REPOSITORY: All CT scans at this facility are submitted to the National Radiology Data Registry (NRDR) Dose Index Registry (DIR) with the [employer] (ACR). RADIATION OPTIMIZATION: All CT scans at this facility use at least one of these dose optimization te chniques: automated exposure control; mA and/or kV adjustment per patient size (includes targeted exa ms where dose is matched to clinical indication); or iterative reconstruction.
--- NOTE | 2024-03-23 21:47 | ED.GENADUL_ITS ---
Discharge Plan Discharge Details Chief Complaint: Abd Prob Primary Care Provider: Brijesh Elliott ED Provider: Carmella El Home Meds and New Rx's Prescriptions: No Action apixaban 5 mg tablet 5 mg PO BID atorvastatin 40 mg tablet 40 mg PO DAILY lisinopril 2.5 mg tablet 10 mg PO DAILY naloxone 4 mg/actuation spray,non-aerosol 4 mg intranasal Q3M PRN Rx Instructions: spray 1 dose into ONE nostril; alternate nostrils w each dose until help arrives omeprazole 20 mg capsule,delayed release(DR/EC) 20 mg PO BID zolpidem 5 mg tablet 5 mg PO QHS multivitamin Tablet 1 tab PO DAILY trazodone 100 MG tablet 100 mg PO HS buprenorphine HCl 2 mg tablet, sublingual 2 mg sublingual DAILY Rx Instructions: take 1/2 twice a day terazosin 2 MG capsule 2 mg PO HS furosemide 40 mg tablet 40 mg PO BID PRNQty: 14 0RF Rx Instructions: take 40 mg in morning and 20 mg in evening HPI General Mode of arrival: EMS . Date/Time Provider Initiated Documentation: 03/23/24 21:41 . Limitations to Documentation: no limitations . Information obtained by: patient, EMS, RN notes reviewed and old records reviewed . HPI Narrative: 78-year-old male presents to the ER via EMS with a chief complaint of right lower quadrant abdominal pain that started earlier today around 2 PM. He reports that he tripped while walking into his house catching himself with his arm. He denies hitting his head or any other associated symptoms. He does have a history of an umbilical hernia repair approximately 20 years ago. Denies any nausea vomiting diarrhea fever or chills. He does have a past medical history of candidiasis and lower extremity cellulitis which she was seen for here on March 09, hypertension, BPH, ADHD. Related Data Home Medications ?Medication ?Instructions ?Recorded ?Confirmed trazodone 100 mg tablet 100 mg PO HS 08/09/13 03/23/24 terazosin 2 mg capsule 2 mg PO HS 09/03/16 03/23/24 apixaban 5 mg tablet 5 mg PO BID 02/06/23 03/23/24 atorvastatin 40 mg tablet 40 mg PO DAILY 02/06/23 03/23/24 lisinopril 2.5 mg tablet 10 mg PO DAILY 02/06/23 03/23/24 multivitamin 1 tab PO DAILY 02/06/23 03/23/24 naloxone 4 mg/actuation nasal spray 4 mg intranasal Q3M PRN 02/06/23 03/23/24 omeprazole 20 mg capsule,delayed 20 mg PO BID 02/06/23 03/23/24 release zolpidem 5 mg tablet 5 mg PO QHS 02/06/23 03/23/24 furosemide 40 mg tablet 40 mg PO BID PRN #14 tabs 09/23/23 03/23/24 buprenorphine HCl 2 mg sublingual 2 mg sublingual DAILY 03/08/24 03/23/24 tablet Previous Rx's ?Medication ?Instructions ?Recorded furosemide 40 mg tablet 40 mg PO BID PRN #14 tabs 09/23/23 Allergies Allergy/AdvReac Type Severity Reaction Status Date / Time fluticasone Allergy Unknown Headache Verified 03/23/24 21:42 gabapentin Allergy Unknown Psychosis Verified 03/23/24 21:42 pregabalin Allergy Unknown Psychosis Verified 03/23/24 21:42 doxycycline AdvReac Intermediate vomiting Verified 03/23/24 21:42 morphine AdvReac Unknown Psychosis Verified 03/23/24 21:42 General Stated Complaint: Abd Prob HAROLDO: 4 Review of Systems All systems reviewed & are unremarkable except as noted in HPI and below Gastrointestinal Gastrointestinal: Reports as per HPI and Reports abdominal pain Exam Narrative Exam Narrative: Constitutional: Alert and oriented x3. Appears stated age. Normal body habitus. Head: Normocephalic, no trauma. Eyes: Pupils PERRL, Red reflex noted, EOM's intact. Eyelids symmetrical without lesions, discharge, or swelling. ENT: Bilateral TM's WNL, External ear normal to inspection, no mastoid TTP, swelling, or erythema, Nasal turbinates WNL, no nasal discharge. Normal dentition, Posterior pharynx WNL, no exudate. Chest: RRR, Normal S1, S2, distal pulses intact. Resp: Lungs clear to auscultation bilaterally, no wheezes, rales, or rhonchi. Abdomen: Soft, non-distended, Normoactive bowel sounds all 4 quads. Musculoskeletal: , Moves all 4 extremities without difficulty. Skin: Lower extremity erythema and edema which appears chronic. He does have a history of peripheral vascular disease and venous stasis. Neurologic: Cranial nerves II-XII intact. Alert and oriented x 3. Motor: No deficits noted. Sensory: Intact bilaterally all 4 extremities. Hematologic/Lymphatic: No ecchymosis, no lymphadenopathy. Course Vital Signs Vital signs: Vital Signs Temperature 36.6 C 03/23/24 21:37 Pulse 81 03/23/24 21:37 Respiratory Rate 18 03/23/24 21:37 Blood Pressure 119/62 03/23/24 21:37 Pulse Oximetry 98 03/23/24 21:37 Temperature 36.6 C 03/23/24 21:37 Temperature Source Oral 03/23/24 21:37 Pulse 81 03/23/24 21:37 Respiratory Rate 18 03/23/24 21:37 Respiratory Effort Normal, Non-Labored 03/23/24 21:41 Blood Pressure 119/62 03/23/24 21:37 Blood Pressure Position Sitting 03/23/24 21:37 Pulse Oximetry 98 03/23/24 21:37 Oxygen Delivery Method Room Air 03/23/24 21:37 Oxygen Flow Rate 0 03/23/24 21:37 Pain Level 4 03/23/24 21:37 Medical Decision Making 78-year-old male presents to the ER via EMS with a chief complaint of right lower quadrant abdominal pain that started earlier today around 2 PM. He reports that he tripped while walking into his house catching himself with his arm. He denies hitting his head or any other associated symptoms. He does have a history of an umbilical hernia repair approximately 20 years ago. Denies any nausea vomiting diarrhea fever or chills. He does have a past medical history of candidiasis and lower extremity cellulitis which she was seen for here on March 09, hypertension, BPH, ADHD. Workup ordered including CBC CMP lipase urinalysis IV. Will order CT imaging pending labs. CBC shows no leukocytosis hemoglobin 9.7 hematocrit 30.5, sodium 127 chloride 92 magnesium 1.5, lipase is 11 which is low, albumin 2.5. Give a liter of normal saline and a gram of magnesium IV. CT abdomen pelvis at this time is pending. Care is to be handed off to oncoming provider Dr. Andres pending CT result reevaluation and disposition. This text was generated using [employer] system, please disregard any oddities of phrase or misspellings. Lab Data Lab results reviewed: Yes I reviewed the patient's lab results. Labs: Laboratory Tests Range/Units 03/23/24 21:58 WBC (4.4-10.8) 10^3/uL 8.38 RBC (4.36-5.78) 10^6/uL 3.30 L Hgb (13.5-17.5) g/dL 9.7 L Hct (40.0-50.0) % 30.5 L MCV (80-95) fL 92 MCH (27.0-33.0) pg 29.4 MCHC (32.0-36.0) % 31.8 L RDW (11.8-14.1) % 14.7 H Plt Count (130-400) 10^3/uL 247 MPV (8.0-11.0) fL 9.4 Immature Gran % % 0.4 Neutrophils % % 60.4 Lymphocytes % % 24.3 Monocytes % % 9.4 Eosinophils % % 4.8 Basophils % % 0.7 Nucleated RBC % (0.0-0.3) % 0.0 Absolute Neutrophils (1.2-6.7) 10^3/uL 5.06 Absolute Lymphocytes (1.2-3.4) 10^3/uL 2.04 Absolute Monocytes (0.1-0.8) 10^3/uL 0.79 Absolute Eosinophils (0.0-0.7) 10^3/uL 0.40 Absolute Basophils (0.0-0.2) 10^3/uL 0.06 Sodium (136-145) mmol/L 127 L Potassium (3.5-5.1) mmol/L 4.0 Chloride (98-107) mmol/L 92 L Carbon Dioxide (21.0-32.0) mmol/L 30.3 Anion Gap (3-11) mmol/L 4.7 BUN (7-18) mg/dL 12 Creatinine (0.70-1.30) mg/dL 1.0 Est GFR (CKD-EPI 2020) (mL/min/1.73m2) 77.52 Glucose (74-106) mg/dL 112 H Calcium (8.5-10.1) mg/dL 8.4 L Magnesium (1.8-2.4) mg/dL 1.5 L Total Bilirubin (0.2-1.0) mg/dL 0.73 AST (15-37) U/L 28 ALT (16-63) U/L 18 Alkaline Phosphatase (46-116) U/L 121 H Total Protein (6.4-8.2) g/dL 7.4 Albumin (3.4-5.0) g/dL 2.5 L Lipase (16-77) U/L 11 L Quality:[facility] Health Related Social Needs: No Data to Display PFSH All Active Problems Candidiasis (Acute) Pain in joint, foot, left (Acute) Corns and callosities (Acute) Cellulitis (Acute) Venous (peripheral) insufficiency (Acute) PAD (peripheral artery disease) (Acute) Onychomycosis (Acute) Neuropathy (Acute) Atrial fibrillation (Chronic) Hearing loss (Acute) with subjective 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 Mononeuritis (Acute) Hyperlipidemia (Acute) Essential (primary) hypertension (Acute) BPH (benign prostatic hyperplasia) (Chronic) ADHD (Acute) ASCVD (arteriosclerotic cardiovascular disease) (Acute) Long-term current use of opiate analgesic (Acute) Tobacco use disorder (Acute) Venous stasis dermatitis (Acute) Peripheral edema (Acute) 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 Frequent falls (Acute) Medical History Viral meningitis Complete rotator cuff tear right Cervical spondylosis Bursitis 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 Here with right lower quadrant abdominal pain sodium is slightly low at 127 magnesium 1.5. Last updated by Carmella El NP at 03/23/24 23:01
[2024-03-23 22:06] LABS: Abs Immature Grans 0.03 10^3/uL (0.0-0.06); Absolute Basophil Count 0.06 10^3/uL (0.0-0.2); Absolute Lymphocyte Count 2.04 10^3/uL (1.2-3.4); Absolute Monocyte Count 0.79 10^3/uL (0.1-0.8); Absolute Neutrophil Count 5.06 10^3/uL (1.2-6.7); Basophils % 0.7 %; Eosinophils % 4.8 %; HCT 30.5 % (40.0-50.0); HGB 9.7 g/dL (13.5-17.5); Immature Grans % 0.4 %; Lymphocytes % 24.3 %; MCH 29.4 pg (27.0-33.0); MCHC 31.8 % (32.0-36.0); MCV 92 fL (80-95); MPV 9.4 fL (8.0-11.0); Monocytes % 9.4 %; Neutrophils % 60.4 %; Platelet Count 247 10^3/uL (130-400); RDW 14.7 % (11.8-14.1); RDW-SD 49.8 fL; WBC 8.38 10^3/uL (4.4-10.8)
[2024-03-23 22:21] LABS: ALT 18 U/L (16-63); AST 28 U/L (15-37); Albumin 2.5 g/dL (3.4-5.0); Alkaline Phosphatase 121 U/L (46-116); Anion Gap 4.7 mmol/L (3-11); BUN 12 mg/dL (7-18); Bilirubin, Total 0.73 mg/dL (0.2-1.0); CO2 30.3 mmol/L (21.0-32.0); Calcium 8.4 mg/dL (8.5-10.1); Chloride 92 mmol/L (98-107); Estimated GFR 77.52 (mL/min/1.73m2); Glucose 112 mg/dL (74-106); Lipase 11 U/L (16-77); Magnesium 1.5 mg/dL (1.8-2.4); Sodium 127 mmol/L (136-145); Total Protein 7.4 g/dL (6.4-8.2)
[2024-03-23] MEDS: Normal Saline - Diluent 50 ML VIAL IJ (22:36)
[2024-03-23] MEDS: Omnipaque 350 MG/ML 100 ML BTL IJ (22:37)
[2024-03-23] MEDS: MAGNESIUM SULFATE 1 GM/100 ML BAG IVINF (22:38)
[2024-03-23] MEDS: Normal Saline 1,000 ML 1000 ML IV (22:38)
[2024-03-23 23:14] LABS: Bilirubin Negative (Negative); Blood Negative (Negative); Clarity Clear (Clear); Glucose Negative (Negative); Ketones Negative (Negative); Leukocyte Esterase Negative (Negative); Nitrite Negative (Negative); Specific Gravity <= 1.005 (1.005-1.025)
--- NOTE | 2024-03-23 23:53 | DI.VRAD_ITS ---
Addendum created by Alo Bustillos MD on 03/24/2024 12:04:01 AM EDT: A normal appendix is identified in the right lower quadrant. Initial report created on 03/23/2024 11:52:40 PM EDT: PROCEDURE INFORMATION: Exam: CT Abdomen And Pelvis With Contrast Exam date and time: 03/23/2024 10:33 PM Age: 78 years old Clinical indication: Abdominal pain; Other: Rlq abd pain TECHNIQUE: Imaging protocol: Computed tomography of the abdomen and pelvis with contrast. Contrast material: OMNI 350; Contrast volume: 100 ml; Contrast route: INTRAVENOUS (IV); COMPARISON: 1. CT PELVIC W 03/08/2024 5:[address] THORACIC LUMBAR SPINE WO 06/17/2023 12:[address] CHEST/ABD/PEL WO 07/24/2023 6:49 AM FINDINGS: Heart: Right atrial enlargement. Mitral valve annular calcification. No pericardial effusion. Coronary arteries: Right coronary artery calcification. Esophagus: Diffuse mural thickening of the distal esophagus. Liver: Normal. No mass. Gallbladder and biliary ducts: Normal. No calcified stones. No ductal dilation. Pancreas: Normal. No ductal dilation. Spleen: Normal. No splenomegaly. Adrenal glands: Right adrenal gland has been removed. 2.3 cm left adrenal mass was previously shown to be fat density, consistent with a benign adenoma. Kidneys and ureters: Normal. No hydronephrosis. Stomach and bowel: Mural thickening of the transverse colon, likely due to nondistention. Moderate stool volume, concerning for constipation. No small bowel dilatation. Appendix: No evidence of appendicitis. Intraperitoneal space: Unremarkable. No free air. No significant fluid collection. Vasculature: Calcified atherosclerotic disease. No aneurysm. Lymph nodes: Unremarkable. No enlarged lymph nodes. Urinary bladder: Unremarkable as visualized. Reproductive: Unremarkable as visualized. Bones/joints: [id number] bilateral hip joint degenerative changes. Multilevel disc space narrowing and vacuum disc phenomenon. No acute fracture or focal suspicious osseous lesion. Soft tissues: Small fat filled right inguinal hernia. Deep subcutaneous fat stranding of the lower anterior abdomen. IMPRESSION: 1. Possible constipation. 2. Mural thickening of the distal esophagus is concerning for esophagitis. 3. Mural thickening of the transverse colon, likely due to nondistention. Consider colitis. 4. Benign left adrenal adenoma. Dictated and Authenticated by: Alo Bustillos MD. Ordering:CARMEN Weir MD
[2024-03-24] VITALS: O2SAT 98
[2024-03-24 00:01] VITALS: BP 140/59; PULSE 80; O2SAT 98
--- NOTE | 2024-03-24 00:20 | W.EDPROG ---
Date of service: 03/24/24 Time of Service: 00:24 Medical Decision Making Patient was signed out to me pending CT scan. On reassessment patient feels well. He states that my pain is completely gone!. Repeat abdominal exam was performed and he has no pain in the right lower quadrant epigastric area transverse area or left sided abdominal quadrants. No guarding or rebound whatsoever. Initial magnesium was low at 1.5 and this was replaced by Radha Óscar. Initial sodium was slightly low at 127, and he was given a liter of normal saline. Patient tolerated all of this well. No hypoxemia. He has no white count or bandemia or left shift to suggest colitis or an infectious etiology. CT scan is negative for any evidence of appendicitis. Additionally there is evidence of some constipation, also some mural thickening of the transverse colon which is likely due to nondistention but could be colitis however this does not correlate clinically with his symptoms, lack of current pain, no fever or white count. Patient otherwise looks very well. Family is very hesitant about starting any antibiotics because he has recently been on multiple courses. He is otherwise notably hemodynamically stable. No signs of acute abdominal process on reexamination. Patient stable for discharge and close follow-up with PCP. Patient usually does struggle with liquid stools, and so they are very hesitant to start a stool softener. I do recommend drinking 10 to 12 cups of water electrolyte solution per day to help with the constipation. does have Senokot, and the patient states that he will try that every now and then if he does not have resolution with the oral water. Additionally the patient does take daily magnesium, I did recommend he double up on this every other or every third day. I have extensively reviewed the treatment plan and discharge instructions with the patient and their family. I have addressed all patient concerns at this time. The patient and family was made aware of what symptoms to monitor for that would warrant a return to the emergency department. Discussed the plan with the patient and family, they demonstrate verbal understanding and agreement with our assessment and plan at this time. The documentation in this chart was dictated using [employer] ([employer]) dictation software. Please excuse any dictation errors. FINDINGS: Heart: Right atrial enlargement. Mitral valve annular calcification. No pericardial effusion. Coronary arteries: Right coronary artery calcification. Esophagus: Diffuse mural thickening of the distal esophagus. Liver: Normal. No mass. Gallbladder and biliary ducts: Normal. No calcified stones. No ductal dilation. Pancreas: Normal. No ductal dilation. Spleen: Normal. No splenomegaly. Adrenal glands: Right adrenal gland has been removed. 2.3 cm left adrenal mass was previously shown to be fat density, consistent with a benign adenoma. Kidneys and ureters: Normal. No hydronephrosis. Stomach and bowel: Mural thickening of the transverse colon, likely due to nondistention. Moderate stool volume, concerning for constipation. No small bowel dilatation. Appendix: No evidence of appendicitis. Intraperitoneal space: Unremarkable. No free air. No significant fluid collection. Vasculature: Calcified atherosclerotic disease. No aneurysm. Lymph nodes: Unremarkable. No enlarged lymph nodes. Urinary bladder: Unremarkable as visualized. Reproductive: Unremarkable as visualized. Bones/joints: [id number] bilateral hip joint degenerative changes. Multilevel disc space narrowing and vacuum disc phenomenon. No acute fracture or focal suspicious osseous lesion. Soft tissues: Small fat filled right inguinal hernia. Deep subcutaneous fat stranding of the lower anterior abdomen. IMPRESSION: 1. Possible constipation. 2. Mural thickening of the distal esophagus is concerning for esophagitis. 3. Mural thickening of the transverse colon, likely due to nondistention. Consider colitis. 4. Benign left adrenal adenoma. Thank you for allowing us to participate in the care of your patient. Dictated and Authenticated by: Alo Bustillos MD 03/23/2024 11:52 PM Eastern Time ([place] & [place]) Quality:[facility] Health Related Social Needs: No Data to Display Sign Out Sign Out Data: Sign Out Comment: Pending CT result. Here with right lower quadrant abdominal pain sodium is slightly low at 127 magnesium 1.5. Last updated by Carmella El NP at 03/23/24 23:01 Discharge Plan Disposition Patient Disposition: Home Condition: Good Discharge Details Chief Complaint: Abd Prob Clinical Impression: Abdominal pain, Hypomagnesemia, Acute hyponatremia Primary Care Provider: Brijesh Elliott ED Provider: Faustino Andres Home Meds and New Rx's Prescriptions: No Action apixaban 5 mg tablet 5 mg PO BID atorvastatin 40 mg tablet 40 mg PO DAILY lisinopril 2.5 mg tablet 10 mg PO DAILY naloxone 4 mg/actuation spray,non-aerosol 4 mg intranasal Q3M PRN Rx Instructions: spray 1 dose into ONE nostril; alternate nostrils w each dose until help arrives omeprazole 20 mg capsule,delayed release(DR/EC) 20 mg PO BID zolpidem 5 mg tablet 5 mg PO QHS multivitamin Tablet 1 tab PO DAILY trazodone 100 MG tablet 100 mg PO HS buprenorphine HCl 2 mg tablet, sublingual 2 mg sublingual DAILY Rx Instructions: take 1/2 twice a day terazosin 2 MG capsule 2 mg PO HS furosemide 40 mg tablet 40 mg PO BID PRNQty: 14 0RF Rx Instructions: take 40 mg in morning and 20 mg in evening Discharge Instructions Instructions: Abdominal Pain, Adult ED Additional Instructions: At this time your CAT scan results have returned and you showed no evidence of appendicitis. There is some constipation and some gas which may have been a component of your symptoms. There is a small amount of thickening in the transverse colon, which could be colitis as we discussed together. However, you do not show any other clinical evidence to suggest this, and so we will hold off on antibiotics in the meantime. If you do notice that your symptoms transition or worsen, or you develop fever or worsening abdominal pain please return immediately for reassessment as this may represent potential development of colitis. Please drink plenty of fluid to stay well-hydrated to help with the constipation. If you do not have any significant bowel movements please drink some prune juice or take your partners Senokot daily to help with your stool. Your sodium and magnesium were slightly low, but these have been corrected with the fluids given here. If you notice any worsening of your symptoms, or any new symptoms such as vomiting, diarrhea, fever, chills, shortness of breath, chest pain, numbness, weakness, or fainting , please return immediately to the emergency department for reevaluation. Please follow up with your primary care provider as soon as possible for reassessment and reevaluation. As always, it was a pleasure participating in your medical care today. Referrals: Brijesh Elliott [Primary Care Provider] -
[2024-03-24 00:27] VITALS: O2SAT 96
== END 2024-03-24 00:33 | disposition home or self-care (01) ==
PROVIDERS: Registered Nurse Emergency; Emergency Provider Student in an Organized Health Care Education/Training Program; PCP Internal Medicine
DX: R10.32 Left lower quadrant pain (principal); E83.42 Hypomagnesemia; E87.1 Hypo-osmolality and hyponatremia; F17.210 Nicotine dependence, cigarettes, uncomplicated; Z79.01 Long term (current) use of anticoagulants
CPT/HCPCS: 00123; 80053; 83690; 96361; 96365; 99285; 74177; 81003; 83735; 85025; 99284; J3475; J3490

== ENCOUNTER 2024-03-31 05:10 | Emergency (ER) | payer OTHER, SELFPAY ==
[2024-03-31] VITALS (31 sets, daily range): BP systolic 150–203; BP diastolic 71–156; PULSE 68–100; RESP 9–22; TEMP 36; O2SAT 86–96
--- NOTE | 2024-03-31 05:00 | RT.EKG_ITS ---
APPROVED REPORT Exam: Resting ECG Reason for Exam: fall Patient Location: E HR:89 bpm ECG Measurements Heart Rate 89 AXIS WA [id number] P [id number] QRSd 95 QRS -6 QT 371 T 59 QTc 452 Conclusion Atrial fibrillation...? atrial activity no ST segment or T wave abnormalities to suggest occlusive LA
--- NOTE | 2024-03-31 05:15 | DI.CT_ITS ---
Exam(s) CT CHEST/ABD/PEL W EXAM: CT CHEST/ABD/PEL W CLINICAL HISTORY: fall on AC, right post flank echymosis. TECHNIQUE: Imaging Protocol: Axial computed tomography images with coronal and sagittal reformatted images were created and reviewed CONTRAST MATERIAL: Intravenous: Omnipaque 350 Contrast volume:100 ml Oral: None COMPARISON: CT CT CHEST/ABD/PEL WO from 07/24/[address] ABDOMEN PELVIS W from 03/23/2024 FINDINGS: CHEST: LUNGS: No confluent infiltrates nor lung contusion. No pneumothorax. No pleural effusion.. MEDIASTINUM: No evidence of sternal fracture or mediastinal hematoma. Visualized thyroid unremarkabl e.No hilar adenopathy. However, there is subcarinal adenopathy evident. No supraclavicular adenopat hy. No axillary adenopathy. CARDIAC: Mild cardiomegaly. No pericardial effusion. There is calcification in the mitral valve karina ulus and there is coronary artery calcification noted.Caliber of thoracic aorta is within normal limi ts and there is no evidence of dissection. OSSEOUS: There are nonacute appearing fractures of the right 6, 7th, and 8th ribs, similar to recent CT scan 03/23/2024. No acute fractures. Multilevel advanced chronic degenerative disc disease in th e midthoracic spine but no acute compression fractures nor listhesis.. ABDOMEN: There appears to be relatively symmetrical anasarca now evident which was not evident on 03/23/2024. However, there is no asymmetric subcutaneous hematoma with the exception of over the lateral aspect of the left hip where the soft tissue subcutaneous density is more so than the opposite side LIVER: Intact. No laceration. No focal lesions. No dilated intrahepatic ducts. GALLBLADDER/BILIARY: No obvious gallbladder pathology. CBD is not dilated. PANCREAS: Pancreas appears somewhat atrophic. No lesions. Pancreatic duct is not dilated. SPLEEN: Intact. Normal size. No lacerations. Splenic and portal veins are patent. ADRENALS: Right adrenal gland is surgically absent. There is a hypodense lesion in the left adrenal gland measuring 2.4 x 2.3 cm. Unchanged from 03/23/2024 and 07/24/2023. Probably an adenoma. KIDNEYS: Intact. No lacerations nor subcapsular hematomas. No focal lesions. No calculi nor hydron ephrosis nor hydroureter.. No cysts evident. ABDOMINAL AORTA: Abdominal aorta is heavily calcified but not enlarged. Common iliac arteries are betty th heavily calcified but not enlarged. LYMPH NODES: There is no retroperitoneal nor paraaortic adenopathy. ABDOMINAL WALL: No evidence of significant anterior abdominal wall nor inguinal hernia. GI: No evidence of mesenteric nor bowel wall hematoma. No bowel obstruction nor free air nor abscess in the abdominal and pelvic cavities. No free fluid. PELVIS: LYMPH NODES: There is no intrapelvic nor inguinal adenopathy. GI: No evidence of appendicitis.No evidence of sigmoid diverticulitis. URINARY BLADDER: Mildly distended. No focal findings in the bladder lumen. REPRODUCTIVE: Prostate size normal. Seminal vesicles unremarkable. OSSEOUS: No acute fractures. No significant osseous lesions. No listhesis. IMPRESSION: 1. Multiple healed right-sided rib fractures. No acute fractures evident. 2. No lung contusion nor pleural effusion or pneumothorax. 3. Mildly enlarged central mediastinal and subcarinal lymph nodes. 4. There is subcutaneous anasarca which is relatively symmetrical on both sides of the abdomen and pe lvis and anterior pannus. However, there does appear to be more prominent subcutaneous soft tissue s welling over the left hip but no evidence of left hip fracture. No radiopaque foreign bodies. Other findings as above. RADIATION DOSE DELIVERED: 755.03mGy.cm Total DLP DATA REPOSITORY: All CT scans at this facility are submitted to the National Radiology Data Registry (NRDR) Dose Index Registry (DIR) with the [employer] (ACR). RADIATION OPTIMIZATION: All CT scans at this facility use at least one of these dose optimization te chniques: automated exposure control; mA and/or kV adjustment per patient size (includes targeted exa ms where dose is matched to clinical indication); or iterative reconstruction.
--- NOTE | 2024-03-31 05:25 | DI.CT_ITS ---
Exam(s) CT HEAD CERV SPINE FACIAL WO EXAM: CT HEAD CERV SPINE FACIAL WO CLINICAL HISTORY: fall on AC facial bruising laceration, C-spine TTP. TECHNIQUE: Imaging Protocol: Axial computed tomography images with coronal and sagittal reformatted images were created and reviewed COMPARISON: CT CT HEAD CERVICAL SPINE WO from 09/23/2023 FINDINGS: CT BRAIN: There is a focal right frontal anterior scalp hematoma. There are no skull fractures nor fluid in th e visualized paranasal sinuses. There is no evidence of intracranial hemorrhage, mass effect, or shift of midline structures. There are no extra-axial fluid collections. The ventricles are not enlarged or shifted and there is no blo od within the ventricular system nor within the basal cisterns. There is symmetrical periventricular hypodensity consistent with chronic small vessel disease. Vascu lar calcifications noted in the internal carotid arteries at the skull base as well as within the lef t vertebral artery at the skull base. CT MAXILLOFACIAL BONES: Images blurred by motion artifact. There is no evidence of obvious facial fractures nor fluid in the visualized paranasal sinuses. ther e is no evidence of orbital blowout fracture. CT CERVICAL SPINE: There is no evidence of fracture nor listhesis. No significant prevertebral soft tissue swelling. M ild facet arthropathy. No facet malalignment evident. Multilevel chronic advanced disc space narrow ing at C5-6 and C6-7 and C7-T1 levels No significant osseous lesions evident. Incidentally noted is a dorsal fusion bar across the left clavicle. IMPRESSION: No acute intracranial findings on this noninfused CT scan of the brain.Right frontal scalp hematoma No evidence of facial nor orbital blowout fractures. No evidence of cervical spine fracture, malalignment, nor acute compromise of the cervical spinal can al. RADIATION DOSE DELIVERED: 1,580.86mGy.cm Total DLP DATA REPOSITORY: All CT scans at this facility are submitted to the National Radiology Data Registry (NRDR) Dose Index Registry (DIR) with the [employer] ([employer]). RADIATION OPTIMIZATION: All CT scans at this facility use at least one of these dose optimization te chniques: automated exposure control; mA and/or kV adjustment per patient size (includes targeted exa ms where dose is matched to clinical indication); or iterative reconstruction.
--- NOTE | 2024-03-31 05:28 | ED.GENADUL_ITS ---
Discharge Plan Discharge Details Chief Complaint: Fall/Non TraumaCriteria Primary Care Provider: Brijesh Elliott ED Provider: Ana Luisa Trinidad Home Meds and New Rx's Prescriptions: No Action apixaban 5 mg tablet 5 mg PO BID atorvastatin 40 mg tablet 40 mg PO DAILY lisinopril 2.5 mg tablet 10 mg PO DAILY naloxone 4 mg/actuation spray,non-aerosol 4 mg intranasal Q3M PRN Rx Instructions: spray 1 dose into ONE nostril; alternate nostrils w each dose until help arrives omeprazole 20 mg capsule,delayed release(DR/EC) 20 mg PO BID zolpidem 5 mg tablet 5 mg PO QHS multivitamin Tablet 1 tab PO DAILY trazodone 100 MG tablet 100 mg PO HS buprenorphine HCl 2 mg tablet, sublingual 2 mg sublingual DAILY Rx Instructions: take 1/2 twice a day terazosin 2 MG capsule 2 mg PO HS furosemide 40 mg tablet 40 mg PO BID PRNQty: 14 0RF Rx Instructions: take 40 mg in morning and 20 mg in evening HPI General Date/Time Provider Initiated Documentation: 03/31/24 05:25 . HPI Narrative: 78yo M with hx chronic back pain, HTN, HLD, CAD, afib on eliquis, frequent fal ls, presenting via EMS for fall. History from patient and EMS. Initial history from EMS that patient became dizzy when he stood up in the bathroom after using the toilet and then fell, striking his head on the cabinent. Patient denies any lightheadedness or dizziness, states that he tripped on the rug while I was turning to wash my hands. Did not lose consciousness at any point. No chest pain or shortness of breath at any point. No numbness, tingling, focal weakness, vertigo, vision changes, nausea, or vomiting. Mild head and facial pain, denies pain elsewhere. Does not feel lightheaded or dizzy now. Otherwise in his usual state of health with no fevers, chills, rash, abdominal pain, or other concerns. Related Data Home Medications ?Medication ?Instructions ?Recorded ?Confirmed trazodone 100 mg tablet 100 mg PO HS 08/09/13 03/31/24 terazosin 2 mg capsule 2 mg PO HS 09/03/16 03/31/24 apixaban 5 mg tablet 5 mg PO BID 02/06/23 03/31/24 atorvastatin 40 mg tablet 40 mg PO DAILY 02/06/23 03/31/24 lisinopril 2.5 mg tablet 10 mg PO DAILY 02/06/23 03/31/24 multivitamin 1 tab PO DAILY 02/06/23 03/31/24 naloxone 4 mg/actuation nasal spray 4 mg intranasal Q3M PRN 02/06/23 03/31/24 omeprazole 20 mg capsule,delayed 20 mg PO BID 02/06/23 03/31/24 release zolpidem 5 mg tablet 5 mg PO QHS 02/06/23 03/31/24 furosemide 40 mg tablet 40 mg PO BID PRN #14 tabs 09/23/23 03/31/24 buprenorphine HCl 2 mg sublingual 2 mg sublingual DAILY 03/08/24 03/31/24 tablet Previous Rx's ?Medication ?Instructions ?Recorded furosemide 40 mg tablet 40 mg PO BID PRN #14 tabs 09/23/23 Allergies Allergy/AdvReac Type Severity Reaction Status Date / Time fluticasone Allergy Unknown Headache Verified 03/31/24 05:18 gabapentin Allergy Unknown Psychosis Verified 03/31/24 05:18 pregabalin Allergy Unknown Psychosis Verified 03/31/24 05:18 doxycycline AdvReac Intermediate vomiting Verified 03/31/24 05:18 morphine AdvReac Unknown Psychosis Verified 03/31/24 05:18 General Stated Complaint: Fall/Non TraumaCriteria HAROLDO: 3 Review of Systems Narrative: see HPI Exam Narrative Exam Narrative: GENERAL: Alert. No distress. SKIN: Warm and well perfused. Scattered echymosis on extremities in various stages of healing. HEAD: ~12cm linear/curved laceration to left forehead extending into left scalp. Shallow curved 3cm laceration/skin tear to right pentecostal, edges well appr oximated. Right periorbital echymosis. Facial bones without deformities or tenderness. Full eyebrow raise and forehead wrinkling symmetric bilaterally EYES: PERRL. No scleral icterus or conjunctival injection. Extraocular muscles intact without nystagmus or diplopia. No proptosis or enophthalmos. EARS: Normal appearing pinnae. No hemotympanum. NOSE: No discharge, tenderness, laxity. No nasal septal hematoma. MOUTH: No malocclusion or trismus. Moist mucus membranes without blood. Posterior pharynx without erythema or exudate. NECK: Trachea midline. No discolorations or edema. CV: Irregular, normal s1 and s2. No murmurs, rubs, or gallops. PV: Radial pulses 2+ bilaterally and symmetric. Dorsalis pedis pulses present bilaterally and symmetric. 2+ capillary refill. Symmetric 1+ LE edema CHEST: No abrasions or ecchymosis. Chest symmetric with respirations. No chest wall tenderness. No crepitus. No step offs. Lungs are clear to auscultation bilaterally. ABDOMEN: No ecchymosis or abrasions. Soft, nondistended, nontender. BACK: No abrasions or skin openings. ~2cm oval echymosis to right flank. Slight ecchymosis to right posterior hip. Mid-low c-spine midline tenderness to palpation, otherwise spine without bony tenderness, no step offs. PELVIC: Pelvis stable, nontender to lateral compression and palpation of symphysis pubis. : Normal external genitalia without blood at meatus. Candidal rash in groin EXTREMITIES: No gross deformities or discolorations or lesions. Tolerates full range of motion of extremities without tenderness. Bilateral LE warmth and redne ss, some serous discharge. Neuro: ? GCS 15.? PERRL.? EOMI.? Fluent speech, no dysarthria. Motor- 5/5 strength symmetric bilateral upper and lower extremities Sensation- ?Intact to light touch and symmetric multiple dermatomes including upper and lower extremities Coordination- No dysmetria on finger to nose Gait/station: ?Deferred CRANIAL NERVES: II: Pupils equal and reactive, III, IV, : EOM intact, no gaze preference or deviation, no nystagmus. V: normal sensation in V1, V2, and V3 segments bilaterally VII: no asymmetry, no nasolabial fold flattening VIII: normal hearing to speech IX, X: normal palatal elevation, no uvular deviation XI: Deferred (pt placed in c-collar) XII: midline tongue protrusion Course Vital Signs Vital signs: Vital Signs Temperature 36.0 C L 03/31/24 05:07 Pulse 100 H 03/31/24 05:07 Respiratory Rate 18 03/31/24 05:07 Blood Pressure 170/93 H 03/31/24 05:07 Pulse Oximetry 93 03/31/24 05:07 Temperature 36.0 C L 03/31/24 05:07 Temperature Source Temporal Artery Scan 03/31/24 05:07 Pulse 100 H 03/31/24 05:07 Respiratory Rate 18 03/31/24 05:07 Respiratory Effort Normal, Non-Labored 03/31/24 05:18 Respiratory Depth Normal 03/31/24 05:18 Respiratory Pattern Normal 03/31/24 05:18 Blood Pressure 170/93 H 03/31/24 05:07 Blood Pressure Position Sitting 03/31/24 05:07 Pulse Oximetry 93 03/31/24 05:07 Oxygen Delivery Method Room Air 03/31/24 05:07 Oxygen Flow Rate 0 03/31/24 05:07 Pain Level 8 03/31/24 05:18 Procedures Laceration Laceration 1: Site: scalp and face Side (If applicable): left Size (cm): 12 Description: linear Depth: simple, single layer Local anesthetic: Lidocaine 2% and with Epi Amount of anesthesia used (mL): 10 Pre-repair: wound explored, irrigated extensively and deep structures intact Skin layer closed with: nylon and other (scalp component: vitaly, 6) Size (cm): 5-0 Number of sutures: 8 Technique: simple, interrupted Laceration 2: Site: face Size (cm): 3 Description: linear Depth: simple, single layer Pre-repair: wound explored, irrigated extensively and deep structures intact Skin layer closed with: other (skin glue) Medical Decision Making 77yo M with hx chronic back pain, HTN, HLD, CAD, afib on eliquis, frequent falls, presenting via EMS for fall. Initial history from EMS that patient became dizzy when he stood up in the bathroom after using the toilet and then fell, striking his head on the cabinet. Patient denies any lightheadedness or dizziness, states that he tripped on the rug while I was turning to wash my hands. Did not lose consciousness at any point and no chest pain or shortness of breath at any point. Unclear if mechanical fall or presyncopal event. Hypertensive on arrival, vital signs otherwise reassuring, HR 80's-100 afib on monitor. PE: -Airway patent and self maintained. -Equal breath sounds bilaterally -Strong central and peripheral pulses -No focal neurologic deficits -Midline tenderness to mid-low cspine [placed in c-collar], large ~12cm hemostatic laceration to left forehead into scalp without involvement of the muscle, full eyebrow raise/forehead wrinkle, left pentecostal shallow laceration, right periorbital echymoiss, scattered echymosis including right posterior flank and hip, venous stasis ulcers bilateral LE EKG on arrival afib with no ST segment or T wave abnormalities to suggest occlusive CA. Low suspicion for ACS based on history; will get troponins to further evaluate. Labs reviewed as below, CBC with anemia Hg 9.8 (baseline on [facility] record review, CMP with no actionable abnormalities, Mg slightly low at 1.7 (oral repletion ordered), initial troponin normal, lipase normal, CK normal (not rhabomyolysis), coags acceptable. Lacerations repaired; scalp component with vitaly, forehead with sutures. Left pentecostal laceration closed with skin glue. Dressings to skin tear left elbow. CTs independently reviewed. CT head with no large intracranial bleed or clearly displaced skull fracture, CT c-spine with no displaced fracture, CT CAP without large hemo or pneumothorax and no large collection of intrabdominal free fluid. O2 sat noted to be 89-92% while sleeping flat; at bedside notes he does have a pronounced snore. Rises to normal range with waking or sleeping semi- recumbant. Suspect component of NADINE. Signed out to oncoming physician, plan to followup CT reads, UA, 3 hour trop, and reassess. Disposition pending results Lab Data Lab results reviewed: Yes I reviewed the patient's lab results. Labs: Laboratory Tests Range/Units 03/31/24 03/31/24 05:33 06:34 WBC (4.4-10.8) 10^3/uL 7.80 RBC (4.36-5.78) 10^6/uL 3.35 L Hgb (13.5-17.5) g/dL 9.8 L Hct (40.0-50.0) % 31.9 L MCV (80-95) fL 95 MCH (27.0-33.0) pg 29.3 MCHC (32.0-36.0) % 30.7 L RDW (11.8-14.1) % 15.2 H Plt Count (130-400) 10^3/uL 258 MPV (8.0-11.0) fL 9.2 Immature Gran % % 0.3 Neutrophils % % 55.2 Lymphocytes % % 21.7 Monocytes % % 9.4 Eosinophils % % 12.2 Basophils % % 1.2 Nucleated RBC % (0.0-0.3) % 0.0 Absolute Neutrophils (1.2-6.7) 10^3/uL 4.32 Absolute Lymphocytes (1.2-3.4) 10^3/uL 1.69 Absolute Monocytes (0.1-0.8) 10^3/uL 0.73 Absolute Eosinophils (0.0-0.7) 10^3/uL 0.95 H Absolute Basophils (0.0-0.2) 10^3/uL 0.09 PT (9.1-11.1) sec 11.4 H INR (0.9-1.1) 1.1 APTT (23.6-32.8) sec 30.1 Sodium (136-145) mmol/L 136 Potassium (3.5-5.1) mmol/L 3.9 Chloride (98-107) mmol/L 99 Carbon Dioxide (21.0-32.0) mmol/L 31.8 Anion Gap (3-11) mmol/L 5.2 BUN (7-18) mg/dL 5 L Creatinine (0.70-1.30) mg/dL 0.9 Est GFR (CKD-EPI 2020) (mL/min/1.73m2) 87.96 Glucose (74-106) mg/dL 128 H Calcium (8.5-10.1) mg/dL 8.7 Magnesium (1.8-2.4) mg/dL 1.7 L Total Bilirubin (0.2-1.0) mg/dL 0.58 AST (15-37) U/L 25 ALT (16-63) U/L 23 Alkaline Phosphatase (46-116) U/L 122 H Creatine Kinase (39-308) U/L 155 Troponin I (<or=76) ng/L 13 11 Total Protein (6.4-8.2) g/dL 7.6 Albumin (3.4-5.0) g/dL 2.6 L Lipase (16-77) U/L 12 L Quality:SDOH Health Related Social Needs: No Data to Display PFSH All Active Problems (Updated 03/24/24 @ 00:24 by Faustino Andres DO) Acute hyponatremia (Acute) Hypomagnesemia (Acute) Abdominal pain (Acute) Candidiasis (Acute) Pain in joint, foot, left (Acute) Corns and callosities (Acute) Cellulitis (Acute) Venous (peripheral) insufficiency (Acute) PAD (peripheral artery disease) (Acute) Onychomycosis (Acute) Neuropathy (Acute) Atrial fibrillation (Chronic) Hearing loss (Acute) with subjective 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 Mononeuritis (Acute) Hyperlipidemia (Acute) Essential (primary) hypertension (Acute) BPH (benign prostatic hyperplasia) (Chronic) ADHD (Acute) ASCVD (arteriosclerotic cardiovascular disease) (Acute) Long-term current use of opiate analgesic (Acute) Tobacco use disorder (Acute) Venous stasis dermatitis (Acute) Peripheral edema (Acute) 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 Frequent falls (Acute) Medical History Viral meningitis Complete rotator cuff tear right Cervical spondylosis Bursitis 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
[2024-03-31 05:40] LABS: Abs Immature Grans 0.02 10^3/uL (0.0-0.06); Absolute Basophil Count 0.09 10^3/uL (0.0-0.2); Absolute Eosinophil Count 0.95 10^3/uL (0.0-0.7); Absolute Lymphocyte Count 1.69 10^3/uL (1.2-3.4); Absolute Monocyte Count 0.73 10^3/uL (0.1-0.8); Absolute Neutrophil Count 4.32 10^3/uL (1.2-6.7); Basophils % 1.2 %; Eosinophils % 12.2 %; HCT 31.9 % (40.0-50.0); HGB 9.8 g/dL (13.5-17.5); Immature Grans % 0.3 %; Lymphocytes % 21.7 %; MCH 29.3 pg (27.0-33.0); MCHC 30.7 % (32.0-36.0); MCV 95 fL (80-95); MPV 9.2 fL (8.0-11.0); Monocytes % 9.4 %; Neutrophils % 55.2 %; Platelet Count 258 10^3/uL (130-400); RBC 3.35 10^6/uL (4.36-5.78); RDW 15.2 % (11.8-14.1); RDW-SD 53.1 fL
[2024-03-31] MEDS: cefTRIAXone 1 GM/50 ML BAG IVPB (05:45)
[2024-03-31 05:59] LABS: INR 1.1 (0.9-1.1); PTT Activated 30.1 sec (23.6-32.8); Prothrombin Time 11.4 sec (9.1-11.1)
[2024-03-31 06:01] LABS: ALT 23 U/L (16-63); AST 25 U/L (15-37); Albumin 2.6 g/dL (3.4-5.0); Alkaline Phosphatase 122 U/L (46-116); Anion Gap 5.2 mmol/L (3-11); BUN 5 mg/dL (7-18); Bilirubin, Total 0.58 mg/dL (0.2-1.0); CO2 31.8 mmol/L (21.0-32.0); CREATININE 0.9 mg/dL (0.70-1.30); Calcium 8.7 mg/dL (8.5-10.1); Chloride 99 mmol/L (98-107); Estimated GFR 87.96 (mL/min/1.73m2); Glucose 128 mg/dL (74-106); Lipase 12 U/L (16-77); Magnesium 1.7 mg/dL (1.8-2.4); Potassium 3.9 mmol/L (3.5-5.1); Sodium 136 mmol/L (136-145); Total Protein 7.6 g/dL (6.4-8.2); Troponin I 13 ng/L (<or=76)
[2024-03-31] MEDS: Normal Saline - Diluent 50 ML VIAL IJ (06:30)
[2024-03-31] MEDS: Omnipaque 350 MG/ML 100 ML BTL IJ (06:31)
[2024-03-31] MEDS: ACETAMINOPHEN 1,000 MG/100 ML BAG 400 MG IVPB (06:34)
--- NOTE | 2024-03-31 06:36 | DI.VRAD_ITS ---
PROCEDURE INFORMATION: Exam: CT Head Without Contrast Exam date and time: 03/31/2024 6:10 AM Age: 78 years old Clinical indication: Injury or trauma; Blunt trauma (contusions or hematomas); Head/scalp and forehead; Loss of consciousness not known; Injury details: Fall on ac facial bruising laceration, c-spine ttp TECHNIQUE: Imaging protocol: Computed tomography of the head without contrast. COMPARISON: CT HEAD CERVICAL SPINE WO 09/23/2023 5:24 PM FINDINGS: Brain: Normal. No hemorrhage. Unremarkable white matter. No mass effect. Cerebral ventricles: No ventriculomegaly. Paranasal sinuses: Visualized sinuses are unremarkable. No fluid levels. Mastoid air cells: Visualized mastoid air cells are well aerated. Bones: Unremarkable. No acute fracture. Soft tissues: Moderate right frontal scalp contusions. Left frontal scalp laceration with vitaly in place. IMPRESSION: No acute intracranial abnormality. PROCEDURE INFORMATION: Exam: CT Maxillofacial Without Contrast Exam date and time: 03/31/2024 6:10 AM Age: 78 years old Clinical indication: Injury or trauma; Blunt trauma (contusions or hematomas); Head/scalp and forehead; Loss of consciousness not known; Injury details: Fall on ac facial bruising laceration, c-spine ttp TECHNIQUE: Imaging protocol: Computed tomography of the face without contrast. COMPARISON: CT HEAD CERVICAL SPINE WO 09/23/2023 5:24 PM FINDINGS: Paranasal sinuses: No air-fluid levels. Orbital cavities: Orbits are normal. Globes are unremarkable. Bones: No acute fracture. Soft tissues: Unremarkable. Other findings: Images are degraded by patient motion artifact. IMPRESSION: No acute facial bone fracture. PROCEDURE INFORMATION: Exam: CT Cervical Spine Without Contrast Exam date and time: 03/31/2024 6:10 AM Age: 78 years old Clinical indication: Injury or trauma; Blunt trauma (contusions or hematomas); Head/scalp and forehead; Loss of consciousness not known; Injury details: Fall on ac facial bruising laceration, c-spine ttp TECHNIQUE: Imaging protocol: Computed tomography of the cervical spine without contrast. COMPARISON: CT HEAD CERVICAL SPINE WO 09/23/2023 5:24 PM FINDINGS: Bones: Alignment is normal. There is moderate multilevel facet and uncovertebral joint hypertrophy. No acute fracture or subluxation. Lungs: Unremarkable. Soft tissues: Unremarkable. IMPRESSION: No acute fracture or subluxation. Dictated and Authenticated by: Joel Orona MD. Ordering:MEREDITH Orosco MD
[2024-03-31 06:46] LABS: Creatine Kinase 155 U/L (39-308)
[2024-03-31] MEDS: Magnesium Gluconate 500 MG TAB 1000 MG PO (06:49)
--- NOTE | 2024-03-31 06:49 | DI.VRAD_ITS ---
PROCEDURE INFORMATION: Exam: CT Chest With Contrast; Diagnostic Exam date and time: 03/31/2024 6:16 AM Age: 78 years old Clinical indication: Injury or trauma; Generalized; Blunt trauma (contusions or hematomas); Injury details: Fall on ac facial bruising laceration, c-spine ttp TECHNIQUE: Imaging protocol: Diagnostic computed tomography of the chest with contrast. 3D rendering (Not supervised by radiologist): MIP and/or 3D reconstructed images were created by the technologist. Contrast material: OMNI 350; Contrast volume: 100 ml; Contrast route: INTRAVENOUS (IV); COMPARISON: CT CHEST/ABD/PEL WO 07/24/2023 6:49 AM FINDINGS: Lungs: Small regions of apical emphysematous change. Upper lobe and lower lobe septal thickening. Posterior dependent atelectasis/scarring. Subtle left upper lobe peripheral ground-glass opacities. Pleural spaces: Unremarkable. No pneumothorax. No pleural effusion. Heart: Mitral annulus calcifications. Coronary arteries: Severe heavy coronary calcified atherosclerotic disease. Lymph nodes: Prominent mediastinal lymph nodes not reaching size criteria for pathology. Vasculature: Moderate to severe calcified and noncalcified atherosclerotic disease of the intrathoracic aorta extending into its major branches. Bones/joints: Partially evaluated plate and screw fixation of the left clavicle. Diffuse degenerative change of the visualized osseous structures. Healed right lateral and anterolateral rib fracture deformities. Soft tissues: Unremarkable. IMPRESSION: 1. No acute traumatic findings. 2. Nonspecific lung findings which can be seen in pulmonary edema/CHF. Superimposed left upper lobe infection cannot be entirely excluded, correlate clinically. 3. Reactive mediastinal lymph nodes, again correlate clinically. PROCEDURE INFORMATION: Exam: CT Abdomen And Pelvis With Contrast Exam date and time: 03/31/2024 6:16 AM Age: 78 years old Clinical indication: Injury or trauma; Generalized; Blunt trauma (contusions or hematomas); Injury details: Fall on ac facial bruising laceration, c-spine ttp TECHNIQUE: Imaging protocol: Computed tomography of the abdomen and pelvis with contrast. 3D rendering (Not supervised by radiologist): MIP and/or 3D reconstructed images were created by the technologist. Contrast material: OMNI 350; Contrast volume: 100 ml; Contrast route: INTRAVENOUS (IV); COMPARISON: CT ABDOMEN PELVIS W 03/23/2024 10:33 PM FINDINGS: Lungs: See separate report. Heart: See separate report. Liver: A few scattered hepatic hypodensities too small to characterize by modality, statistically likely to represent benign etiology. Gallbladder and biliary ducts: Normal. No calcified stones. No ductal dilation. Pancreas: Atrophy of the pancreas. Spleen: Normal. No splenomegaly. Adrenal glands: Nodular hypertrophy of the left adrenal gland with stable lateral arm masslike morphology. Right adrenalectomy. Kidneys and ureters: Bilateral renal hypodensities too small to characterize by modality, statistically likely to represent benign findings. Stomach and bowel: Scattered colonic diverticulosis without evidence of diverticulitis. Moderate to severe colonic stool burden. Appendix: No evidence of appendicitis. Intraperitoneal space: Unremarkable. No free air. No significant fluid collection. Vasculature: Severe calcified and noncalcified atherosclerotic disease of the abdominal aorta extending into its major abdominal branches. Lymph nodes: Unremarkable. No enlarged lymph nodes. Urinary bladder: Mild wall thickening of the urinary bladder circumferentially without significant inflammatory change. Reproductive: Dystrophic calcifications of the prostate gland. Bones/joints: Diffuse degenerative change of the visualized osseous structures. Soft tissues: Body wall edema. Cutaneous thickening and fat stranding about the pannus which can be seen in panniculitis. IMPRESSION: 1. Findings which can be seen in CHF/third-spacing of fluid given body edema. Difficult to exclude panniculitis. Correlate clinically. 2. Stable chronic findings as above. Dictated and Authenticated by: Cipriano Zapata MD. Ordering:MEREDITH Orosco MD
[2024-03-31 06:57] LABS: Troponin I 11 ng/L (<or=76)
[2024-03-31 07:56] LABS: Bilirubin Negative (Negative); Blood Trace-intact (Negative); Clarity Clear (Clear); Glucose Negative (Negative); Ketones Negative (Negative); Leukocyte Esterase Negative (Negative); Nitrite Negative (Negative); pH 6.5 (5-8)
[2024-03-31 08:05] LABS: Bacteria Negative HPF (Negative); C & S Indicated? No; Casts Negative LPF (Negative); Crystals Negative HPF (Negative); Epithelial Cells Few HPF (Negative); Mucus Negative (Negative); RBC 0-2 HPF (0-2); WBC 0-2 HPF (0-5)
--- NOTE | 2024-03-31 08:08 | ED.PROG_ITS ---
Date of service: 03/31/24 Time of Service: 08:09 Medical Decision Making Patient was signed out to me pending CT reads. Please refer to Dr. Cox's HPI, physical exam, assessment and plan. CT scan shows evidence of questionable mild pneumonia. I did question the patient on this and he states that he has been coughing for the last few days. No fevers, no significant white count, and no evidence of sepsis or septic shock. Due to his age and risk factors we will start him on Augmentin for community-acquired mild pneumonia. Patient was sutured by Dr. Dawkins, patient remains hemodynamically stable. Neurologically intact. He did get up and ambulate well without difficulty. Patient will be discharged home. Discussed red flags for which to return. I have extensively reviewed the treatment plan and discharge instructions with the patient and their family. I have addressed all patient concerns at this time. The patient and family was made aware of what symptoms to monitor for that would warrant a return to the emergency department. Discussed the plan with the patient and family, they demonstrate verbal understanding and agreement with our assessment and plan at this time. The documentation in this chart was dictated using [employer] dictation software. Please excuse any dictation errors. FINDINGS: Brain: Normal. No hemorrhage. Unremarkable white matter. No mass effect. Cerebral ventricles: No ventriculomegaly. Paranasal sinuses: Visualized sinuses are unremarkable. No fluid levels. Mastoid air cells: Visualized mastoid air cells are well aerated. Bones: Unremarkable. No acute fracture. Soft tissues: Moderate right frontal scalp contusions. Left frontal scalp laceration with vitaly in place. IMPRESSION: No acute intracranial abnormality. FINDINGS: Paranasal sinuses: No air-fluid levels. Orbital cavities: Orbits are normal. Globes are unremarkable. Bones: No acute fracture. Soft tissues: Unremarkable. Other findings: Images are degraded by patient motion artifact. IMPRESSION: No acute facial bone fracture FINDINGS: Bones: Alignment is normal. There is moderate multilevel facet and uncovertebral joint hypertrophy. No acute fracture or subluxation. Lungs: Unremarkable. Soft tissues: Unremarkable. IMPRESSION: No acute fracture or subluxation. Thank you for allowing us to participate in the care of your patient. Dictated and Authenticated by: Joel Orona MD 03/31/2024 6:36 AM Eastern Time ([place] & [place]) FINDINGS: Lungs: Small regions of apical emphysematous change. Upper lobe and lower lobe septal thickening. Posterior dependent atelectasis/scarring. Subtle left upper lobe peripheral ground-glass opacities. Pleural spaces: Unremarkable. No pneumothorax. No pleural effusion. Heart: Mitral annulus calcifications. Coronary arteries: Severe heavy coronary calcified atherosclerotic disease. Lymph nodes: Prominent mediastinal lymph nodes not reaching size criteria for pathology. Vasculature: Moderate to severe calcified and noncalcified atherosclerotic disease of the intrathoracic aorta extending into its major branches. Bones/joints: Partially evaluated plate and screw fixation of the left clavicle. Diffuse degenerative change of the visualized osseous structures. Healed right lateral and anterolateral rib fracture deformities. Soft tissues: Unremarkable. IMPRESSION: 1. No acute traumatic findings. 2. Nonspecific lung findings which can be seen in pulmonary edema/CHF. Superimposed left upper lobe infection cannot be entirely excluded, correlate clinically. 3. Reactive mediastinal lymph nodes, again correlate clinically FINDINGS: Lungs: See separate report. Heart: See separate report. Liver: A few scattered hepatic hypodensities too small to characterize by modality, statistically likely to represent benign etiology. Gallbladder and biliary ducts: Normal. No calcified stones. No ductal dilation. Pancreas: Atrophy of the pancreas. Spleen: Normal. No splenomegaly. Adrenal glands: Nodular hypertrophy of the left adrenal gland with stable lateral arm masslike morphology. Right adrenalectomy. Kidneys and ureters: Bilateral renal hypodensities too small to characterize by modality, statistically likely to represent benign findings. Stomach and bowel: Scattered colonic diverticulosis without evidence of diverticulitis. Moderate to severe colonic stool burden. Appendix: No evidence of appendicitis. Intraperitoneal space: Unremarkable. No free air. No significant fluid collection. Vasculature: Severe calcified and noncalcified atherosclerotic disease of the abdominal aorta extending into its major abdominal branches. Lymph nodes: Unremarkable. No enlarged lymph nodes. Urinary bladder: Mild wall thickening of the urinary bladder circumferentially without significant inflammatory change Reproductive: Dystrophic calcifications of the prostate gland. Bones/joints: Diffuse degenerative change of the visualized osseous structures. Soft tissues: Body wall edema. Cutaneous thickening and fat stranding about the pannus which can be seen in panniculitis. IMPRESSION: 1. Findings which can be seen in CHF/third-spacing of fluid given body edema. Difficult to exclude panniculitis. Correlate clinically. 2. Stable chronic findings as above. Thank you for allowing us to participate in the care of your patient. Dictated and Authenticated by: Cipriano Zapata DO 03/31/2024 6:48 AM Eastern Time ([place] & [place]) Quality:SDOH Health Related Social Needs: No Data to Display Sign Out Sign Out Data: Sign Out Comment: Fall on eliquis (? presyncope vs mechanical), large forehead/s calp laceration and facial echymosis, slight flank echymosis, midline c-spine tenderness with nonfocal neuro exam. Labs reassuring (anemia at baseline, Mg 1.7 ordered PO repletion). Pending CT reads, UA, 3 hour troponin. Last updated by Ana Luisa Trinidad MD at 03/31/24 07:21 Discharge Plan Disposition Patient Disposition: Home Discharge Details Clinical Impression: Fall, Laceration of scalp, Pneumonia Primary Care Provider: Brijesh Elliott ED Provider: Faustino Andres Home Meds and New Rx's Prescriptions: New amoxicillin-pot clavulanate 875-125 mg tablet 1 tab PO BID 7 Days Qty: 14 0RF No Action apixaban 5 mg tablet 5 mg PO BID atorvastatin 40 mg tablet 40 mg PO DAILY lisinopril 2.5 mg tablet 10 mg PO DAILY naloxone 4 mg/actuation spray,non-aerosol 4 mg intranasal Q3M PRN Rx Instructions: spray 1 dose into ONE nostril; alternate nostrils w each dose until help arrives omeprazole 20 mg capsule,delayed release(DR/EC) 20 mg PO BID zolpidem 5 mg tablet 5 mg PO QHS multivitamin Tablet 1 tab PO DAILY trazodone 100 MG tablet 100 mg PO HS buprenorphine HCl 2 mg tablet, sublingual 2 mg sublingual DAILY Rx Instructions: take 1/2 twice a day terazosin 2 MG capsule 2 mg PO HS furosemide 40 mg tablet 40 mg PO BID PRNQty: 14 0RF Rx Instructions: take 40 mg in morning and 20 mg in evening Discharge Instructions Instructions: Community-Acquired Pneumonia, Adult (DC), Laceration Repair With Stitches ED Additional Instructions: Please keep the area clean and dry. Monitor closely for any redness, drainage or discharge. For nonabsorbable sutures, please return in 7 to 10 days to have the wound reassessed and the sutures removed. If you come back to the emergency department here it will be free of charge for the suture removal. For long-term scar cosmesis, please make sure to avoid any sun to the area for the next year. Apply moisturizer or vitamin E to the area twice daily for the next 12 months for the best chance of wound/scar medication. Please take a daily mu ltivitamin as well as this can help in wound healing. Additionally you also have mild pneumonia. Please take the antibiotic as directed. If you notice any worsening of your symptoms, or any new symptoms such as vomiting, diarrhea, fever, chills, shortness of breath, chest pain, numbness, weakness, or fainting , please return immediately to the emergency department for reevaluation. Please follow up with your primary care provider as soon as possible for reassessment and reevaluation. As always, it was a pleasure participating in your medical care today. Referrals: Brijesh Elliott [Primary Care Provider] -
== END 2024-03-31 08:14 | disposition home or self-care (01) ==
PROVIDERS: Student in an Organized Health Care Education/Training Program; Emergency Provider Student in an Organized Health Care Education/Training Program; PCP Internal Medicine
DX: R42 Dizziness and giddiness (principal); S01.81XA Laceration without foreign body of other part of head, initial encounter; I48.91 Unspecified atrial fibrillation; I10 Essential (primary) hypertension; E78.5 Hyperlipidemia, unspecified; I25.10 Atherosclerotic heart disease of native coronary artery without angina pectoris; F17.210 Nicotine dependence, cigarettes, uncomplicated; W01.198A Fall on same level from slipping, tripping and stumbling with subsequent striking against other object, initial encounter; Y93.E8 Activity, other personal hygiene; Y92.012 Bathroom of single-family (private) house as the place of occurrence of the external cause; Z23 Encounter for immunization
CPT/HCPCS: 00123; 12016; 74177; 80053; 82550; 83690; 90471; 90715; 93005; 96365; 96375; 99285; 70450; 70486; 71260; 72125; 81003; 81015; 83735; 84484; 85025; 85610; 85730; 93010; 99284; J0131; J0696; J2004; J3490

== ENCOUNTER 2024-04-09 16:08 | Emergency (ER) | payer OTHER, SELFPAY ==
[2024-04-09 16:10] VITALS: BP 154/75; PULSE 67; RESP 14; TEMP 36.5; O2SAT 97
--- NOTE | 2024-04-09 16:10 | W.ED.GENAD ---
Discharge Plan Disposition Patient Disposition: Home Discharge Details Clinical Impression: Encounter for removal of sutures, Encounter for removal of vitaly Primary Care Provider: Brijesh Elliott ED Provider: Gerson Carmona Home Meds and New Rx's Prescriptions: Continued apixaban 5 mg tablet 5 mg PO BID atorvastatin 40 mg tablet 40 mg PO DAILY lisinopril 2.5 mg tablet 10 mg PO DAILY naloxone 4 mg/actuation spray,non-aerosol 4 mg intranasal Q3M PRN Rx Instructions: spray 1 dose into ONE nostril; alternate nostrils w each dose until help arrives omeprazole 20 mg capsule,delayed release(DR/EC) 20 mg PO BID zolpidem 5 mg tablet 5 mg PO QHS multivitamin Tablet 1 tab PO DAILY trazodone 100 MG tablet 100 mg PO HS buprenorphine HCl 2 mg tablet, sublingual 2 mg sublingual DAILY Rx Instructions: take 1/2 twice a day terazosin 2 MG capsule 2 mg PO HS furosemide 40 mg tablet 40 mg PO BID PRNQty: 14 0RF Rx Instructions: take 40 mg in morning and 20 mg in evening Discharge Instructions Additional Instructions: You were seen in the emergency to have your sutures and vitaly removed. As we discussed if you develop streaking signs of infection fevers or any foul-smelling drainage please return to the emergency department. Otherwise follow-up as needed with your primary care provider next week. HPI General Date/Time Provider Initiated Documentation: 04/09/24 16:10. HPI Narrative: MDM This is an overall very well-appearing normothermic nontachycardic 78-year-old male who had vitaly and sutures removed in the ED. No signs of infection. I removed 4 of that vitaly. The remaining vitaly removed by nursing and all the sutures were removed by nursing. No pain or proportion to suggest necrotizing soft tissue infection. Patient and I discussed that he should return to the ED if you develop streaking signs of infection fevers or any foul-smelling drainage. He understood his return indications and was discharged with empiric trial of expectant outpatient management. HPI Patient seen in the emergency department earlier this month following a fall which in which he sustained a laceration that was closed with vitaly and sutures. He is back to have his sutures removed. He denies any fevers foul-smelling drainage. No pain at. Exam General: Well-appearing in no acute distress speaking in complete sentences. Head: Normocephalic. There are 5 vitaly and 8 sutures on a laceration that is on the left side of the patient's forehead crossing his hairline. No streaking signs of infection. No foul-smelling drainage. Eye: extraocular eye movements intact. No conjunctival injection. No scleral icterus. Ear, nose, mouth, throat: Grossly normal inspection. Normal voice, handling secretions normally. Neck: Trachea midline. Cardiovascular: Well-perfused distal extremities. Respiratory: Nonlabored respiration. Gastrointestinal: Nondistended abdomen. Musculoskeletal: No edema. Moving all 4 extremities spontaneously. Skin: Normal for age and race, grossly normal temperature and turgor. No acute rash. Neurologic: Alert and appropriate, no apparent acute deficits. Psychiatric: Mood and manner are appropriate. Grooming and personal hygiene are appropriate. Related Data Home Medications ?Medication ?Instructions ?Recorded ?Confirmed trazodone 100 mg tablet 100 mg PO HS 08/09/13 04/09/24 terazosin 2 mg capsule 2 mg PO HS 09/03/16 04/09/24 apixaban 5 mg tablet 5 mg PO BID 02/06/23 04/09/24 atorvastatin 40 mg tablet 40 mg PO DAILY 02/06/23 04/09/24 lisinopril 2.5 mg tablet 10 mg PO DAILY 02/06/23 04/09/24 multivitamin 1 tab PO DAILY 02/06/23 04/09/24 naloxone 4 mg/actuation nasal spray 4 mg intranasal Q3M PRN 02/06/23 04/09/24 omeprazole 20 mg capsule,delayed 20 mg PO BID 02/06/23 04/09/24 release zolpidem 5 mg tablet 5 mg PO QHS 02/06/23 04/09/24 furosemide 40 mg tablet 40 mg PO BID PRN #14 tabs 09/23/23 04/09/24 buprenorphine HCl 2 mg sublingual 2 mg sublingual DAILY 03/08/24 04/09/24 tablet Previous Rx's ?Medication ?Instructions ?Recorded furosemide 40 mg tablet 40 mg PO BID PRN #14 tabs 09/23/23 Allergies Allergy/AdvReac Type Severity Reaction Status Date / Time fluticasone Allergy Unknown Headache Verified 04/09/24 16:14 gabapentin Allergy Unknown Psychosis Verified 04/09/24 16:14 pregabalin Allergy Unknown Psychosis Verified 04/09/24 16:14 doxycycline AdvReac Intermediate vomiting Verified 04/09/24 16:14 morphine AdvReac Unknown Psychosis Verified 04/09/24 16:14 General HAROLDO: 3 Medical Decision Making Quality:SDOH Health Related Social Needs: No Data to Display PFSH All Active Problems (Updated 04/09/24 @ 16:40 by Gerson Carmona MD) Encounter for removal of vitaly (Acute) Encounter for removal of sutures (Acute) Pneumonia (Acute) Laceration of scalp (Acute) Fall (Acute) Acute hyponatremia (Acute) Hypomagnesemia (Acute) Abdominal pain (Acute) Pain in joint, foot, left (Acute) Corns and callosities (Acute) Cellulitis (Acute) Venous (peripheral) insufficiency (Acute) PAD (peripheral artery disease) (Acute) Onychomycosis (Acute) Neuropathy (Acute) Atrial fibrillation (Chronic) Hearing loss (Acute) with subjective 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 Mononeuritis (Acute) Hyperlipidemia (Acute) Essential (primary) hypertension (Acute) BPH (benign prostatic hyperplasia) (Chronic) ADHD (Acute) ASCVD (arteriosclerotic cardiovascular disease) (Acute) Long-term current use of opiate analgesic (Acute) Tobacco use disorder (Acute) Venous stasis dermatitis (Acute) Peripheral edema (Acute) 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 Frequent falls (Acute) Medical History Viral meningitis Complete rotator cuff tear right Cervical spondylosis Bursitis 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
== END 2024-04-09 17:00 | disposition home or self-care (01) ==
PROVIDERS: Emergency Provider Emergency Medicine; PCP Internal Medicine
DX: Z48.02 Encounter for removal of sutures (principal)
CPT/HCPCS: 99281; 99282

== ENCOUNTER 2024-06-03 00:51 | Emergency (ER) | payer OTHER, SELFPAY ==
[2024-06-03] VITALS (8 sets, daily range): BP systolic 128–160; BP diastolic 78–90; PULSE 88–111; RESP 22–24; TEMP 36.2–36.4; O2SAT 89–94
--- NOTE | 2024-06-03 01:30 | W.ED.GENAD ---
Discharge Plan Disposition Patient Disposition: Transfer-Acute Inpatient Care Specific Acute Inpt Facility: [facility] Condition: Serious Discharge Details Clinical Impression: Fracture, ribs, Soft tissue infection, Sepsis Primary Care Provider: Brijesh Elliott ED Provider: Ana Luisa Trinidad Home Meds and New Rx's Prescriptions: No Action apixaban 5 mg tablet 5 mg PO BID atorvastatin 40 mg tablet 40 mg PO DAILY lisinopril 2.5 mg tablet 10 mg PO DAILY naloxone 4 mg/actuation spray,non-aerosol 4 mg intranasal Q3M PRN Rx Instructions: spray 1 dose into ONE nostril; alternate nostrils w each dose until help arrives omeprazole 20 mg capsule,delayed release(DR/EC) 20 mg PO BID zolpidem 5 mg tablet 2.5 mg PO QHS multivitamin Tablet 1 tab PO DAILY trazodone 100 MG tablet 50 mg PO HS buprenorphine HCl 2 mg tablet, sublingual 2 mg sublingual DAILY Rx Instructions: take 1/2 twice a day finasteride 5 mg tablet 5 mg PO HS oxycodone 5 mg capsule 5 mg PO TID terazosin 2 MG capsule 2 mg PO HS furosemide 40 mg tablet 40 mg PO BID PRNQty: 14 0RF Rx Instructions: take 40 mg in morning and 20 mg in evening HPI General Mode of arrival: EMS. Date/Time Provider Initiated Documentation: 06/03/24 01:01. Limitations to Documentation: no limitations. Information obtained by: patient and EMS. HPI Narrative: 78yo M with hx chronic back pain, HTN, HLD, CAD, afib on eliquis, frequent falls, presenting via EMS for fall. History from patient and EMS. Fortine unsteady on his feet, lost his balance, and fell backwards. Did not strike his head or LOC. Landed on his left side and left arm. Reports left rib pain; denies pain elsewhere. Per EMS, skin tears to left arm, dressed prior to arrival. No presyncope prior to fall. No shortness of breath or lightheadedness at any point. No N/V, numbness, tingling, weakness. Otherwise in his usual state of health with no fevers, chills, abdominal pain, dysuria, hematuria, LE edema, or other concerns. Related Data Home Medications ?Medication ?Instructions ?Recorded ?Confirmed trazodone 100 mg tablet 50 mg PO HS 08/09/13 06/03/24 terazosin 2 mg capsule 2 mg PO HS 09/03/16 06/03/24 apixaban 5 mg tablet 5 mg PO BID 02/06/23 06/03/24 atorvastatin 40 mg tablet 40 mg PO DAILY 02/06/23 06/03/24 lisinopril 2.5 mg tablet 10 mg PO DAILY 02/06/23 06/03/24 multivitamin 1 tab PO DAILY 02/06/23 06/03/24 naloxone 4 mg/actuation nasal spray 4 mg intranasal Q3M PRN 02/06/23 06/03/24 omeprazole 20 mg capsule,delayed 20 mg PO BID 02/06/23 06/03/24 release zolpidem 5 mg tablet 2.5 mg PO QHS 02/06/23 06/03/24 furosemide 40 mg tablet 40 mg PO BID PRN #14 tabs 09/23/23 06/03/24 buprenorphine HCl 2 mg sublingual 2 mg sublingual DAILY 03/08/24 06/03/24 tablet finasteride 5 mg tablet 5 mg PO HS 06/03/24 06/03/24 oxycodone 5 mg capsule 5 mg PO TID 06/03/24 06/03/24 Previous Rx's ?Medication ?Instructions ?Recorded furosemide 40 mg tablet 40 mg PO BID PRN #14 tabs 09/23/23 Allergies Allergy/AdvReac Type Severity Reaction Status Date / Time fluticasone Allergy Unknown Headache Verified 06/03/24 02:29 gabapentin Allergy Unknown Psychosis Verified 06/03/24 02:29 pregabalin Allergy Unknown Psychosis Verified 06/03/24 02:29 doxycycline AdvReac Intermediate vomiting Verified 06/03/24 02:29 morphine AdvReac Unknown Psychosis Verified 06/03/24 02:29 General Stated Complaint: Fall/Non TraumaCriteria HAROLDO: 3 Review of Systems Narrative: see HPI Exam Narrative Exam Narrative: GENERAL: Alert, no acute distress SKIN: Warm and well perfused. HEAD: Atraumatic, normocephalic without edema, discoloration or evidence of trauma. Facial bones without deformities or tenderness. EYES: PERRL. No scleral icterus or conjunctival injection. Extraocular muscles intact without nystagmus or diplopia. No proptosis or enophthalmos. MOUTH: No malocclusion or trismus. Moist mucus membranes without blood. . NECK: Trachea midline. No discolorations or edema. CV: Tachycardia, regular. Normal s1 and s2. No murmurs, rubs, or gallops. PV: Radial pulses 2+ bilaterally and symmetric. Dorsalis pedis pulses 2+ bilaterally and symmetric. 2+ capillary refill. No extremity edema. CHEST: Echymosis to left posterior chest wall.. Chest symmetric with respirations. No chest wall tenderness. No crepitus. No step offs. Lungs are clear to auscultation bilaterally. ABDOMEN: No ecchymosis or abrasions. Soft, nondistended, nontender. BACK: No abrasions, skin openings, or ecchymosis. Spine without bony tenderness, no step offs. PELVIC: Pelvis stable, nontender to lateral compression : Marked penile and scrotal swelling and erythema. Perineal and anteromedial upper thigh erythema. Small ulcer to mons pubis at base of penis. No crepitus. No pain out of proproption, no reaction to palpation. MSK: Tolerates full range of motion of extremities without tenderness. Small scattered skin tears to left forearm and elbow. No bony tenderness. NEURO: ? GCS 15.? PERRL.? EOMI.? Slight dysarthria (baseline for pt). Tongue thrust and akathisia. Motor- 5/5 strength symmetric bilateral upper and lower extremities Sensation- ?Intact to light touch and symmetric multiple dermatomes including upper and lower extremities CRANIAL NERVES: II: Pupils equal and reactive, III, IV, : EOM intact, no gaze preference or deviation, no nystagmus. V: normal sensation in V1, V2, and V3 segments bilaterally VII: no asymmetry, no nasolabial fold flattening VIII: normal hearing to speech IX, X: normal palatal elevation, no uvular deviation XI: 5/5 head turn and 5/5 shoulder shrug bilaterally XII: midline tongue protrusion Course Vital Signs Vital signs: Vital Signs Pulse 97 H 06/03/24 00:49 Respiratory Rate 24 06/03/24 00:49 Temperature Source Temporal Artery Scan 06/03/24 00:49 Pulse 97 H 06/03/24 00:49 Respiratory Rate 24 06/03/24 00:49 Blood Pressure 160/80 H 06/03/24 01:25 Blood Pressure Position Sitting 06/03/24 00:49 Oxygen Delivery Method Room Air 06/03/24 00:49 Oxygen Flow Rate 0 06/03/24 00:49 Pain Level 7 06/03/24 00:49 Comment RN aware 06/03/24 01:25 Medical Decision Making 78yo M with hx chronic back pain, HTN, HLD, CAD, afib on eliquis, frequent falls, presenting via EMS for fall. Fortine unsteady on his feet, lost his balance, and fell backwards landing on his left side and left arm; no HS or LOC, no presyncope. Hypertensive and slightly tachycardiac on arrival, vital signs otherwise reassuring, O2 sat 94+% on room air. Left posterior chest wall echymosis and left lateral/posterior chest wall tenderness on exam with lungs CTAB. No other significant traumatic findings. Noted to have tongue thrusting and akathasia, pt states this is common for him but worse than usual right now. Was asked specifically about tardive dyskinesia states yes, that. Also has marked penile/scrotal swelling and erythema with erythema to mons pubis, medial thighs, perineum. No pain out of proportion or crepitus to suggest nec fasc however extent of infection is concerning; will get CT abd/pelvis and send labs to further evaluate. CT chest for possible rib fx, given pt on eliquis, will also get CT head despite reported lack of head strike. -Labs reviewed as below, CBC with leukocytosis to 14.8, Hg 10.5 (at baseline on [facility] record review), CMP with acute hyponatremia at 128, Cr 2.4 from normal baseline (likely MIMI), CRP mildly elevated at 3.6, lactate elevated at 2.3. LRINEC score 7, concerning for necrotizing fascitis. Started on zosyn/zyvox while awaiting CT imaging, given IVFB. Given fentanyl IV for pain. Discussed with surgery on-call Dr. Villegas; pt felt to be more appropriate for tertiary care facility and not in need of emergent debridement here prior to transfer. -CTs independently reviewed, no intracranial bleed, pneumothorax, or free air in soft tissue of pelvis on my view; agree with radiology reads below with multiple rib fx. Repeat VS reassuring, normotensive and no longer tachycardiac. Discussed with [facility] [place]; spoke with trauma and pt accepted ED to ED under Dr. Chamorro. Advised adding clindamycin which was done. Repeat lactate sent and slightly uptrending; 3rd liter of IVF running at this time. Transferred to [facility] [place]. Imaging Data Radiologic Study: Imaging: CT Scan Radiologist's impression: Head: IMPRESSION: No acute brain findings Chest: IMPRESSION: 1. Mild smooth interlobular septal thickening and peribronchial cuffing compatible with hydrostatic interstitial pulmonary edema/CHF. 2. Acute fractures of the left 3rd 4th 7th, 8th, and 9th ribs. Age-indeterminate subtle fracture deformities of the left 5th and 6th ribs. Abd/pelvis: IMPRESSION: 1. There is extensive low anterior abdominal wall subcutaneous edema with penile and possibly scrotal wall edema. No soft tissue gas or abscess. 2. There is low-attenuation stool throughout the colon which suggests steatorrhea related to malabsorption. 3. Hepatic cirrhosis. 4. No acute traumatic injury. Lab Data Lab results reviewed: Yes I reviewed the patient's lab results. Labs: Laboratory Tests Range/Units 06/03/24 01:46 WBC (4.4-10.8) 10^3/uL 14.81 H RBC (4.36-5.78) 10^6/uL 3.62 L Hgb (13.5-17.5) g/dL 10.5 L Hct (40.0-50.0) % 32.3 L MCV (80-95) fL 89 MCH (27.0-33.0) pg 29.0 MCHC (32.0-36.0) % 32.5 RDW (11.8-14.1) % 14.3 H Plt Count (130-400) 10^3/uL 285 MPV (8.0-11.0) fL 9.5 Immature Gran % % 0.7 Neutrophils % % 80.5 Lymphocytes % % 10.9 Monocytes % % 7.3 Eosinophils % % 0.3 Basophils % % 0.3 Nucleated RBC % (0.0-0.3) % 0.0 Absolute Neutrophils (1.2-6.7) 10^3/uL 11.92 H Absolute Lymphocytes (1.2-3.4) 10^3/uL 1.61 Absolute Monocytes (0.1-0.8) 10^3/uL 1.08 H Absolute Eosinophils (0.0-0.7) 10^3/uL 0.04 Absolute Basophils (0.0-0.2) 10^3/uL 0.04 ESR (0-20) mm/hr 20 VBG Lactate (0.6-1.4) mmol/L 2.3 H* Sodium (136-145) mmol/L 128 L Potassium (3.5-5.1) mmol/L 4.5 Chloride (98-107) mmol/L 89 L Carbon Dioxide (21.0-32.0) mmol/L 30.1 Anion Gap (3-11) mmol/L 8.9 BUN (7-18) mg/dL 30 H Creatinine (0.70-1.30) mg/dL 2.4 H Est GFR (CKD-EPI 2020) (mL/min/1.73m2) 27.11 Glucose (74-106) mg/dL 107 H Calcium (8.5-10.1) mg/dL 8.8 Total Bilirubin (0.2-1.0) mg/dL 0.84 AST (15-37) U/L 54 H ALT (16-63) U/L 31 Alkaline Phosphatase (46-116) U/L 137 H C-Reactive Protein (<or=0.5) mg/dL 3.63 H Total Protein (6.4-8.2) g/dL 7.5 Albumin (3.4-5.0) g/dL 2.8 L Quality:SDOH Health Related Social Needs: No Data to Display Critical Care Time Critical Care Time Critical Care Time: Yes Total Critical Care Time: 34 Attestation: Due to a high probability of clinically significant, life threatening deterioration, the patient required my highest level of preparedness to intervene emergently and I personally spent this critical care time directly and personally managing the patient. This critical care time included obtaining a history; examining the patient; pulse oximetry; ordering and review of studies; arranging urgent treatment with development of a management plan; evaluation of patient's response to treatment; frequent reassessment; and, discussions with other providers. This critical care time was performed to assess and manage the high probability of imminent, life-threatening deterioration that could result in multi-organ failure. It was exclusive of separately billable procedures and treating other patients? PFSH All Active Problems (Updated 06/03/24 @ 05:29 by Ana Luisa Trinidad MD) Sepsis (Acute) Soft tissue infection (Acute) Fracture, ribs (Acute) Pain in joint, foot, left (Acute) Corns and callosities (Acute) Cellulitis (Acute) Venous (peripheral) insufficiency (Acute) PAD (peripheral artery disease) (Acute) Onychomycosis (Acute) Neuropathy (Acute) Atrial fibrillation (Chronic) Hearing loss (Acute) with subjective 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 Mononeuritis (Acute) Hyperlipidemia (Acute) Essential (primary) hypertension (Acute) BPH (benign prostatic hyperplasia) (Chronic) ADHD (Acute) ASCVD (arteriosclerotic cardiovascular disease) (Acute) Long-term current use of opiate analgesic (Acute) Tobacco use disorder (Acute) Venous stasis dermatitis (Acute) Peripheral edema (Acute) 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 Frequent falls (Acute) Medical History Viral meningitis Complete rotator cuff tear right Cervical spondylosis Bursitis 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
[2024-06-03 01:55] LABS: Abs Immature Grans 0.11 10^3/uL (0.0-0.06); Absolute Basophil Count 0.04 10^3/uL (0.0-0.2); Absolute Eosinophil Count 0.04 10^3/uL (0.0-0.7); Absolute Lymphocyte Count 1.61 10^3/uL (1.2-3.4); Absolute Monocyte Count 1.08 10^3/uL (0.1-0.8); Absolute Neutrophil Count 11.92 10^3/uL (1.2-6.7); Basophils % 0.3 %; Eosinophils % 0.3 %; HCT 32.3 % (40.0-50.0); HGB 10.5 g/dL (13.5-17.5); Immature Grans % 0.7 %; Lactate 2.3 mmol/L (0.6-1.4); Lymphocytes % 10.9 %; MCHC 32.5 % (32.0-36.0); MCV 89 fL (80-95); MPV 9.5 fL (8.0-11.0); Monocytes % 7.3 %; Neutrophils % 80.5 %; Platelet Count 285 10^3/uL (130-400); RBC 3.62 10^6/uL (4.36-5.78); RDW 14.3 % (11.8-14.1); RDW-SD 46.5 fL; WBC 14.81 10^3/uL (4.4-10.8)
[2024-06-03 01:57] LABS: ESR 20 mm/hr (0-20)
[2024-06-03 02:13] LABS: ALT 31 U/L (16-63); AST 54 U/L (15-37); Albumin 2.8 g/dL (3.4-5.0); Alkaline Phosphatase 137 U/L (46-116); Anion Gap 8.9 mmol/L (3-11); BUN 30 mg/dL (7-18); Bilirubin, Total 0.84 mg/dL (0.2-1.0); C-Reactive Protein 3.63 mg/dL (<or=0.5); CO2 30.1 mmol/L (21.0-32.0); CREATININE 2.4 mg/dL (0.70-1.30); Calcium 8.8 mg/dL (8.5-10.1); Chloride 89 mmol/L (98-107); Estimated GFR 27.11 (mL/min/1.73m2); Glucose 107 mg/dL (74-106); Potassium 4.5 mmol/L (3.5-5.1); Sodium 128 mmol/L (136-145); Total Protein 7.5 g/dL (6.4-8.2)
--- NOTE | 2024-06-03 03:22 | DI.CT_ITS ---
Exam(s) CT HEAD WO EXAM: CT HEAD WO CLINICAL HISTORY: fall on blood thinners. TECHNIQUE: Imaging Protocol: Axial computed tomography images with coronal and sagittal reformatted images were created and reviewed COMPARISON: CT CT HEAD CERV SPINE FACIAL WO from 03/31/2024 FINDINGS: There are no skull fractures. There is no fluid in the visualized paranasal sinuses. There is no evidence of intracranial hemorrhage, mass effect, or shift of midline structures. There are no extra-axial fluid collections. The ventricles are not enlarged or shifted and there is no blo od within the ventricular system nor within the basal cisterns. There is some mild bilateral periventricular hypodensity consistent with chronic small vessel disease . No acute territorial infarct evident. IMPRESSION: No acute intracranial findings on this noninfused CT scan of the brain. RADIATION DOSE DELIVERED: 831.97mGy.cm Total DLP DATA REPOSITORY: All CT scans at this facility are submitted to the National Radiology Data Registry (NRDR) Dose Index Registry (DIR) with the [employer] (A[employer]). RADIATION OPTIMIZATION: All CT scans at this facility use at least one of these dose optimization te chniques: automated exposure control; mA and/or kV adjustment per patient size (includes targeted exa ms where dose is matched to clinical indication); or iterative reconstruction.
--- NOTE | 2024-06-03 03:22 | DI.CT_ITS ---
Exam(s) CT CHEST/ABD/PEL W EXAM: CT CHEST/ABD/PEL W CLINICAL HISTORY: fall, L rbs TTP, scrotal/penile swelling/erythema. TECHNIQUE: Imaging Protocol: Axial computed tomography images with coronal and sagittal reformatted images were created and reviewed CONTRAST MATERIAL: Intravenous: Omnipaque 350 Contrast volume:100 ml Oral: None COMPARISON: CT CT CHEST/ABD/PEL W from 03/31/2024 FINDINGS: CHEST: LUNGS: No infiltrates nor lung contusions nor ominous lung lesions and there are no pleural effusions . There is no pneumothorax.. There are healing fractures of the right 7th and 8th and 9th ribs again noted. No new right rib frac tures. There is also a fracture of the posterior aspect of the left 3rd rib now evident and also a f racture of the posterolateral aspect of the left 4th rib now evident. Also a fracture of the left 8t h rib now evident as well as fracture left 9th rib MEDIASTINUM: No evidence of sternal fracture or mediastinal hematoma. No hilar nor mediastinal adeno pantera. Visualized thyroid appears unremarkable. CARDIAC: Mild cardiomegaly. No pericardial effusion. Thoracic aorta appears intact. Coronary arter y calcifications noted. OSSEOUS: Multilevel chronic degenerative disc disease in the midthoracic spine noted. No new rob anjelica fractures evident. ABDOMEN: There is no ascites. No evidence of bowel wall nor mesenteric hematoma. LIVER: Intact. No laceration. No significant liver lesions. No dilated intrahepatic ducts. GALLBLADDER/BILIARY: No obvious gallbladder pathology. CBD is not dilated. PANCREAS: No evidence of pancreatic mass nor dilatation of the pancreatic duct. SPLEEN: Spleen size normal. No laceration. No perisplenic fluid. No splenic lesions. Splenic and portal veins are patent. ADRENALS: Surgical clips are seen in the region of the right adrenal gland, similar to previous and m ost probably related to adrenalectomy. Left adrenal hypodense nodule measuring 2.5 by 2.0 cm is unch anged and probably an adenoma. KIDNEYS: Some scarring in the upper lateral cortex of the right kidney is again noted. Right kidney does not appear to enhance in total uniform fashion. Left kidney is partially blurred by motion sharla fact.. No cysts evident. ABDOMINAL AORTA: The abdominal aorta is heavily calcified but not enlarged and the common iliac arter ies are also very heavily calcified but not enlarged. LYMPH NODES: There is no retroperitoneal nor paraaortic adenopathy. ABDOMINAL WALL: There is a right inguinal hernia with small bowel loop within the hernia sac now evid ent. There does not appear to be a transition point at this level and there is no bowel obstruction nor free air nor abscess. GI: Appendix is seen and there is no evidence of appendicitis.Sigmoid diverticulosis but no evidence of acute diverticulitis. PELVIS: LYMPH NODES: There is no intrapelvic nor inguinal adenopathy. GI: No evidence of appendicitis.No evidence of sigmoid diverticulitis. URINARY BLADDER: Mild relatively thickening of the urinary bladder wall noted. No radiopaque calculi in the ureters. Pelvic ureters are not dilated. REPRODUCTIVE: Prostate size normal. Seminal vesicles unremarkable. OSSEOUS: No significant osseous lesions. No acute fractures IMPRESSION: 1. Rib fractures as above. No pneumothorax no prominent lung contusion and no pleural effusions. 2. There is a right inguinal hernia which contains obstructed and non edematous small bowel loops. 3. No evidence of appendicitis nor acute diverticulitis. 4. Mild relatively uniform thickening of the urinary bladder wall noted which may indicate cystitis. First read by [facility]. RADIATION DOSE DELIVERED: 827.81mGy.cm Total DLP DATA REPOSITORY: All CT scans at this facility are submitted to the National Radiology Data Registry (NRDR) Dose Index Registry (DIR) with the [employer] (ACR). RADIATION OPTIMIZATION: All CT scans at this facility use at least one of these dose optimization te chniques: automated exposure control; mA and/or kV adjustment per patient size (includes targeted exa ms where dose is matched to clinical indication); or iterative reconstruction. [id number]: Total DLP = 0.00 mGy-cm
[2024-06-03] MEDS: PIPERACILLIN/TAZO 3.375 GM in Normal Saline 50 ML IVPB (03:24)
[2024-06-03] MEDS: Normal Saline 1,000 ML 1000 ML IV ×3 (03:25→05:17)
[2024-06-03] MEDS: Acetaminophen 500 MG TAB 1000 MG PO (03:26)
--- NOTE | 2024-06-03 03:33 | DI.VRAD_ITS ---
PROCEDURE INFORMATION: Exam: CT Head Without Contrast Exam date and time: 06/03/2024 3:05 AM Age: 78 years old Clinical indication: Other: Fall on blood thinners TECHNIQUE: Imaging protocol: Computed tomography of the head without contrast. COMPARISON: CT HEAD CERV SPINE FACIAL WO 03/31/2024 6:10 AM FINDINGS: Brain: Volume loss and chronic small vessel ischemic change. No brain edema. No intracranial hemorrhage. Cerebral ventricles: No ventriculomegaly. Paranasal sinuses: Visualized sinuses are unremarkable. No fluid levels. Mastoid air cells: Unremarkable. Bones: Unremarkable. No acute fracture. Soft tissues: Unremarkable. IMPRESSION: No acute brain findings. Dictated and Authenticated by: Daniel Boone MD. Ordering:MEREDITH Orosco MD
[2024-06-03] MEDS: LINEZOLID 600 MG/300 ML BAG 300 MG IVPB (03:34)
[2024-06-03] MEDS: Normal Saline - Diluent 50 ML VIAL IJ (03:46)
[2024-06-03] MEDS: Omnipaque 350 MG/ML 100 ML BTL 90 ML IJ (03:47)
--- NOTE | 2024-06-03 04:12 | DI.VRAD_ITS ---
PROCEDURE INFORMATION: Exam: CT Chest With Contrast; Diagnostic Exam date and time: 06/03/2024 3:07 AM Age: 78 years old Clinical indication: Other: Fall, L rbs ttp, scrotal/penile swelling/erythema TECHNIQUE: Imaging protocol: Diagnostic computed tomography of the chest with contrast. 3D rendering (Not supervised by radiologist): MIP and/or 3D reconstructed images were created by the technologist. Contrast material: OMNIPAQUE 350; Contrast volume: 90 ml; Contrast route: INTRAVENOUS (IV); COMPARISON: CT CHEST/ABD/PEL W 03/31/2024 6:16 AM FINDINGS: Lungs: Mild smooth interlobular septal thickening and peribronchial cuffing compatible with hydrostatic interstitial pulmonary edema/CHF. Lungs otherwise clear. No pulmonary contusion. Pleural spaces: No pneumothorax or hemothorax. Heart: Cardiomegaly. Lymph nodes: Unremarkable. No enlarged lymph nodes. Vasculature: Atherosclerotic aorta. No aneurysm or acute aortic syndrome. No traumatic aortic injury. No mediastinal hematoma, pneumomediastinum, or hemopericardium. Bones/joints: Acute fractures of the left 3rd 4th 7th, 8th, and 9th ribs. Age-indeterminate subtle fracture deformities of the left 5th and 6th ribs. Multiple healing right-sided rib fractures. Soft tissues: Unremarkable. Other findings: Mild emphysema. IMPRESSION: 1. Mild smooth interlobular septal thickening and peribronchial cuffing compatible with hydrostatic interstitial pulmonary edema/CHF. 2. Acute fractures of the left 3rd 4th 7th, 8th, and 9th ribs. Age-indeterminate subtle fracture deformities of the left 5th and 6th ribs. PROCEDURE INFORMATION: Exam: CT Abdomen And Pelvis With Contrast Exam date and time: 06/03/2024 3:07 AM Age: 78 years old Clinical indication: Other: Fall, L rbs ttp, scrotal/penile swelling/erythema TECHNIQUE: Imaging protocol: Computed tomography of the abdomen and pelvis with contrast. 3D rendering (Not supervised by radiologist): MIP and/or 3D reconstructed images were created by the technologist. Contrast material: OMNIPAQUE 350; Contrast volume: 90 ml; Contrast route: INTRAVENOUS (IV); COMPARISON: CT CHEST/ABD/PEL W 03/31/2024 6:16 AM FINDINGS: Liver: Hepatic cirrhosis. Gallbladder and biliary ducts: Normal. No calcified stones. No ductal dilation. Pancreas: Unremarkable. Spleen: Normal. Adrenal glands: Indeterminate small left adrenal nodules. Kidneys and ureters: Cortical scarring of the right kidney. No obstructive uropathy. Stomach and bowel: There is low-attenuation stool throughout the colon which suggests steatorrhea related to malabsorption. No bowel wall thickening or intestinal obstruction. Colonic diverticulosis. No diverticulitis. Appendix: Normal appendix. Intraperitoneal space: No hemoperitoneum, pneumoperitoneum, mesenteric/omental contusion, or retroperitoneal hematoma. Vasculature: Unremarkable. Lymph nodes: Unremarkable. Urinary bladder: Unremarkable as visualized. Reproductive: There is extensive low anterior abdominal wall subcutaneous edema with penile and possibly scrotal wall edema. No soft tissue gas or abscess. Bones/joints: Unremarkable. No acute fracture. Soft tissues: Fat containing left inguinal hernia. Atrophic left testicle is in the left inguinal canal. Right inguinal hernia contains a short loop of small bowel. No resulting obstruction or strangulation. Atrophic right testicle is in the right inguinal canal. Other findings: No traumatic organ injury. IMPRESSION: 1. There is extensive low anterior abdominal wall subcutaneous edema with penile and possibly scrotal wall edema. No soft tissue gas or abscess. 2. There is low-attenuation stool throughout the colon which suggests steatorrhea related to malabsorption. 3. Hepatic cirrhosis. 4. No acute traumatic injury. Dictated and Authenticated by: Daniel Boone MD. Ordering:MEREDITH Orosco MD
[2024-06-03] MEDS: fentaNYL 100 MCG/2 ML VIAL 50 MCG IVP (04:16)
[2024-06-03] MEDS: CLINDAMYCIN 600 MG/50 ML BAG 100 MG IVPB (04:36)
[2024-06-03] MEDS: fentaNYL 100 MCG/2 ML VIAL 25 MCG IVP (05:14)
[2024-06-03 05:43] LABS: Lactate 2.7 mmol/L (0.6-1.4)
--- NOTE | 2024-06-04 | DI.CT_ITS ---
Exam(s) CT THORACIC LUMBAR SPINE REC EXAM: CT THORACIC LUMBAR SPINE REC CLINICAL HISTORY: TRAUMA REQUESTED BY [facility] [place]CHNIQUE: COMPARISON: CT CT THORACIC LUMBAR SPINE WO from 06/17/[address] CHEST/ABD/PEL W from 03/31/2024 FINDINGS: THORACIC SPINAL COLUMN: There are no acute fractures evident. There is multilevel chronic advanced disc space narrowing at t he T5 through T9 levels. Similar to 03/31/2024. Milder chronic disc space narrowing above this leve l. There are Schmorl's node invagination evident on both sides the T8-T9 disc level. Appearance of the thoracic spinal column is unchanged from 06/17/2023 CT scan. The amount of kyphosi s is unchanged. LUMBOSACRAL SPINAL COLUMN: No evidence of fracture or listhesis. There is no significant scoliosis in the lumbar spine. Sacroi liac joints appear unremarkable. There are no pars defects minimal facet arthropathy. Multilevel di sc space narrowing which is most prominent at L2-3 level. There is multilevel central spinal canal stenosis which is most prominent at L4-5 where it also evide nt at L3-4 and L2-3 levels. This central canal stenosis is related to annular bulging, short AP dime nsions the pedicles, and some mild facet arthropathy. There is no central canal stenosis at L5-S1 le severino IMPRESSION: No evidence of acute fracture, malalignment, nor acute compromise of the spinal canal in the thoracic and lumbosacral spinal levels. Multilevel central canal stenosis noted lumbar spine at L2-3, L3-4, and L4-5 levels Multilevel advanced disc space narrowing in the mid-lower thoracic spine, unchanged from previous.
--- NOTE | 2024-06-04 11:45 | NUR.NOTE ---
Sheryl called this morning asking we had found a wallet with camoflage fabric exterior. Her lost his around the time he was here at [facility]. I called Security, and checked around the Emergency Dept and did not find a wallet. I called her back and notified her of this. [phone]. Nursing Note:
== END 2024-06-03 06:31 | disposition short-term general hospital (02) ==
PROVIDERS: Emergency Provider Student in an Organized Health Care Education/Training Program; PCP Internal Medicine; Visit Provider Student in an Organized Health Care Education/Training Program
DX: S22.42XA Multiple fractures of ribs, left side, initial encounter for closed fracture (principal); A41.9 Sepsis, unspecified organism; I48.91 Unspecified atrial fibrillation; I10 Essential (primary) hypertension; E78.5 Hyperlipidemia, unspecified; I25.10 Atherosclerotic heart disease of native coronary artery without angina pectoris; Z79.01 Long term (current) use of anticoagulants; F17.210 Nicotine dependence, cigarettes, uncomplicated
CPT/HCPCS: 36415; 74177; 80053; 85652; 96361; 96365; 96375; 96376; 99285; 70450; 71260; 83605; 85025; 86140; J0737; J2020; J2543; J3010; J3490

== ENCOUNTER 2024-08-07 10:35 | Emergency (ER) | payer OTHER, SELFPAY ==
[2024-08-07] VITALS (40 sets, daily range): BP systolic 123–169; BP diastolic 42–95; PULSE 88–142; RESP 15–24; TEMP 35.7; O2SAT 92–100
--- NOTE | 2024-08-07 | DI.CT_ITS ---
Exam(s) CT THORACIC SPINE RECONS EXAM: CT THORACIC SPINE RECONS CLINICAL HISTORY: Trauma Requested by [facility] [place]. TECHNIQUE: Imaging Protocol: Axial computed tomography images with coronal and sagittal reformatted images were created and reviewed. COMPARISON: CT CT THORACIC LUMBAR SPINE REC from 06/03/[address] CHEST/ABD/PEL W from 06/03/[address] CHEST W from 08/07/2024 FINDINGS: Bones: No fractures or dislocations are seen. The alignment of the spine is normal including the cerv icothoracic junction. Age-appropriate degenerative changes are seen in the thoracic spine. Soft tissues: The soft tissues of the chest are unremarkable. No large disk herniations are identifie d. IMPRESSION: 1. There is no acute fracture or subluxation seen in the thoracic spine. 2. Please refer to the CT scan of the chest, abdomen and pelvis for complete details. RADIATION DOSE DELIVERED: Total DLP Total DLP DATA REPOSITORY: All CT scans at this facility are submitted to the National Radiology Data Registry (NRDR) Dose Index Registry (DIR) with the [employer] (ACR). RADIATION OPTIMIZATION: All CT scans at this facility use at least one of these dose optimization te chniques: automated exposure control; mA and/or kV adjustment per patient size (includes targeted exa ms where dose is matched to clinical indication); or iterative reconstruction.
--- NOTE | 2024-08-07 10:30 | RT.EKG_ITS ---
APPROVED REPORT Exam: Resting ECG Reason for Exam: SOB Patient Location: E HR:126 bpm ECG Measurements Heart Rate 126 AXIS WV [id number] P [id number] QRSd 92 QRS -2 QT 287 T 143 QTc 416 Conclusion Atrial fibrillation 126 no stemi
--- NOTE | 2024-08-07 11:12 | DI.RAD_ITS ---
Exam(s) XR CHEST 1V IN DI DEPT EXAM: XR CHEST 1V IN DI DEPT CLINICAL HISTORY: sob TECHNIQUE: 2D digital imaging was performed of the chest. One image was obtained. An AP view was ob tained. COMPARISON: CT CT CHEST/ABD/PEL W from 06/03/2024 FINDINGS: MEDIASTINUM: Normal. HEART: Heart is difficult to evaluate secondary to the large left pleural effusion. PULMONARY VASCULATURE: Normal. LUNGS: There has developed a large left pleural effusion. The majority of the left hemithorax is obs cured by the effusion. The right lung is clear. PLEURAL SPACE: No pleural effusion or pneumothorax. BONE:There are fractures involving the left 3rd through 7th ribs posterior laterally. There is again seen a sideplate on the left clavicle. OTHER FINDINGS:Normal. IMPRESSION: 1. Interval development of a large left pleural effusion. 2. No known left rib fractures. These are identified on the CT scan from 06/03/2024. 3. The right lung is clear. DATA REPOSITORY: RADIATION DOSE DELIVERED:
[2024-08-07 11:41] LABS: Abs Immature Grans 0.12 10^3/uL (0.0-0.06); Absolute Basophil Count 0.02 10^3/uL (0.0-0.2); Absolute Lymphocyte Count 1.16 10^3/uL (1.2-3.4); Absolute Neutrophil Count 14.34 10^3/uL (1.2-6.7); Basophils % 0.1 %; HCT 29.6 % (40.0-50.0); HGB 9.6 g/dL (13.5-17.5); Immature Grans % 0.7 %; MCH 29.5 pg (27.0-33.0); MCHC 32.4 % (32.0-36.0); MCV 91 fL (80-95); MPV 9.5 fL (8.0-11.0); Monocytes % 5.6 %; Neutrophils % 86.6 %; Platelet Count 336 10^3/uL (130-400); RBC 3.25 10^6/uL (4.36-5.78); RDW 15.6 % (11.8-14.1); RDW-SD 51.7 fL; WBC 16.56 10^3/uL (4.4-10.8)
[2024-08-07 11:46] LABS: Absolute Monocyte Count 0.93 10^3/uL (0.1-0.8)
[2024-08-07] MEDS: methylPREDNISolone SUCC 125 MG VIAL IVP (12:00)
[2024-08-07] MEDS: dilTIAZem 25 MG/5 ML VIAL 15 MG IVP (12:01)
[2024-08-07] MEDS: Furosemide 100 MG/10 ML VIAL 80 MG IVP (12:01)
[2024-08-07] MEDS: Albuterol/Ipratropium 3 ML UPD VIAL UPD ×4 (12:02→12:08)
[2024-08-07 12:11] LABS: Anion Gap 5.1 mmol/L (3-11); BUN 40 mg/dL (7-18); CO2 32.9 mmol/L (21.0-32.0); CREATININE 1.5 mg/dL (0.70-1.30); Calcium 9.1 mg/dL (8.5-10.1); Chloride 91 mmol/L (98-107); Estimated GFR 47.65 (mL/min/1.73m2); Glucose 156 mg/dL (74-106); Potassium 3.5 mmol/L (3.5-5.1); Sodium 129 mmol/L (136-145)
[2024-08-07 12:20] LABS: COVID-19 PCR Negative (Negative); Influenza A PCR Negative (Negative); Influenza B PCR Negative (Negative); RSV PCR Negative (Negative)
[2024-08-07 12:21] LABS: Source Nasopharynx
--- NOTE | 2024-08-07 12:36 | NUR.NOTE ---
Prolonged IV placement. Set medication administration and labs back approx 45 min. IV placed via US. Pt urinated, amada care provided and pt changed. Pt has some incontinence, this is baseline. Has significant pressure injury to right buttock and excoriated skin and pitting throughout groin, rear, and pubis. Pt has nystatin powder in creases of groin, apparent yeasty rash present. Pressure injury on backside is stage 3 and excoriation is stage 2 in most areas. states pt is very unsteady at home and picks his skin. he has various wounds on arms and legs, both shins have open skin (clean and covered) with redness and edema to bilateral legs as well. Bed in low position, pt educated about fall risk and not to get up out of bed on his own, is at bedside and yellow socks applied. Provider notified of skin issues. ROCKY LiN, RN Nursing Note:
--- NOTE | 2024-08-07 12:51 | DI.CT_ITS ---
Exam(s) CT HEAD CERVICAL SPINE WO EXAM: CT HEAD CERVICAL SPINE WO CLINICAL HISTORY: TRAUMA. TECHNIQUE: Imaging Protocol: Axial computed tomography images with coronal and sagittal reformatted images were created and reviewed COMPARISON: CT CT HEAD CERV SPINE FACIAL WO from 03/31/[address] CHEST/ABD/PEL W from 06/03/2024 CR XR CHEST 1V IN DI DEPT from 08/07/2024 FINDINGS: The examination is limited due to patient motion artifact. CT Head: Ventricles and Extra axial spaces: Normal in size and morphology for the patient's age. Hemorrhage: None. Cerebral parenchyma: There are areas of decreased attenuation in the white matter most consistent wit h chronic microvascular ischemic disease. No acute mass effect. Midline shift: None. Brainstem/Cerebellum: Normal. Calvarium: Normal. Visualized Paranasal sinuses/Mastoids: Clear. Soft Tissues: Unremarkable. CT Cervical Spine: Bones: No acute fracture or subluxation. Age-appropriate degenerative changes are seen. There is a f ixation plate partially imaged on the left clavicle. There is a fracture involving the posterior asp ect of the left 3rd rib. This was present on the CT scan dated 06/03/2024. There is straightening o f the normal cervical lordosis which may be due to muscle spasm or patient positioning. There is art ifact involving the inferior half of the cervical spine secondary to patient body habitus. This limi ts evaluation on the sagittal and coronal images. Soft Tissues: There is a large amount of fluid in the visualized left hemithorax. The right lung ape x is clear. There are mild centrilobular emphysematous changes. Lung Apices: Clear. IMPRESSION: 1. No acute intracranial process. 2. Within the limits of the examination, no acute fracture or subluxation in the cervical spine. 3. Old left 3rd rib fracture. 4. Interval development of a large amount of fluid in the left hemithorax. RADIATION DOSE DELIVERED: 1,171.58mGy.cm Total DLP DATA REPOSITORY: All CT scans at this facility are submitted to the National Radiology Data Registry (NRDR) Dose Index Registry (DIR) with the [employer] (ACR). RADIATION OPTIMIZATION: All CT scans at this facility use at least one of these dose optimization te chniques: automated exposure control; mA and/or kV adjustment per patient size (includes targeted exa ms where dose is matched to clinical indication); or iterative reconstruction.
[2024-08-07 12:59] LABS: BE (Venous) 9 mmol/L (-2-3); HCO3 (Venous) 33 mmol/L (23-28); O2 Sat (Venous) 51 %; TCO2 (Venous) 31 mmol/L (24-29); pCO2 (Venous) 49 mmHg (41-51); pH (Venous) 7.43 (7.31-7.41); pO2 (Venous) 30 mmHg
[2024-08-07] MEDS: dilTIAZem 25 MG/5 ML VIAL 10 MG IVP (13:00)
[2024-08-07] MEDS: Omnipaque 350 MG/ML 100 ML BTL IJ (13:18)
[2024-08-07] MEDS: Normal Saline - Diluent 50 ML VIAL IJ (13:21)
--- NOTE | 2024-08-07 13:30 | DI.CT_ITS ---
Exam(s) CT CHEST W EXAM: CT CHEST W CLINICAL HISTORY: TRAUMA TECHNIQUE: Imaging Protocol: Axial computed tomography images with coronal and sagittal reformatted images were created and reviewed. Computer aided detection (CAD) was utilized. CONTRAST MATERIAL: Intravenous: Omnipaque 350Contrast volume:70 mL. COMPARISON: CT CT CHEST/ABD/PEL W from 06/03/2024 FINDINGS: The examination is limited due to patient motion artifact. Tracheobronchial tree: Patent where visualized. No evidence of bronchiectasis. Pulmonary parenchyma: Centrilobular emphysematous changes are seen in the right lung. In the left he mithorax there is now a large pleural effusion. There is complete atelectasis of left lower lobe and near complete compressive atelectasis involving the left upper lobe and lingula. There is a left pn eumothorax. Mediastinum and Shannon: No dominant adenopathy or fluid collection. The esophagus is unremarkable. The trachea is mildly deviated to the right. Thyroid gland: Unremarkable. Pleura: There is no right pleural effusion or pneumothorax. Heart: Cardiomegaly. There is 3 vessel coronary artery calcification. No pericardial effusion. Aorta: Thoracic aorta non-dilated. No evidence of dissection. Atherosclerotic calcification is prese nt. Pulmonary arteries: Due to the timing of the bolus, pulmonary artery opacification is suboptimal for evaluation of pulmonary embolism. Upper abdomen: There is again seen a left adrenal nodule. It is stable at 2.5 cm. Lymph nodes: Within normal limits. Bones: Within normal limits for the patient's age. There are old healed right rib fractures. There are fractures involving the left 3rd through 12th ribs. There are in varying degrees of acuity. The re are several subacute healing fractures. There also several acute fractures involving the lateral aspects of multiple left ribs. Soft tissues: There is soft tissue gas seen along the left chest wall laterally. IMPRESSION: 1. Multiple acute left rib fractures. This is in addition to multiple subacute left rib fractures an d old healed right rib fractures. 2. Large left hemopneumothorax. 3. Compressive atelectasis involving the left upper and lower lobes in the left lingula. 4. Subcutaneous emphysema along the left chest wall. 5. Findings were discussed with Dr. Johnson at 1:56 p.m. on 08/07/2024. RADIATION DOSE DELIVERED: 136.54mGy.cm Total DLP DATA REPOSITORY: All CT scans at this facility are submitted to the National Radiology Data Registry (NRDR) Dose Index Registry (DIR) with the [employer] (ACR). RADIATION OPTIMIZATION: All CT scans at this facility use at least one of these dose optimization te chniques: automated exposure control; mA and/or kV adjustment per patient size (includes targeted exa ms where dose is matched to clinical indication); or iterative reconstruction.
--- NOTE | 2024-08-07 14:18 | W.SURGCON ---
Date of service: 08/07/24 Time of Service: 14:19 Assessment and Plan Assessment and plan (1) Hemopneumothorax on left: Status: Acute Assessment and plan: 78-year-old man with blunt left?chest wall trauma sustaining rib fractures and a small hemopneumothorax. His hemoglobin is stable and this happened 2 days ago. I am suspicious this will be a combination of old blood and effusion. I highly doubt he is actively bleeding in his chest. He did take his anticoagulation this morning however. His hemopneumothorax should be evacuated which will help him breathe better at minimum. He only has 1 peripheral IV and I directed the trauma nurse to give him a second peripheral IV before we go ahead with the procedure. We do have blood available for him if he needs transfusion. If a significant amount of blood continues to come out after drainage, he may need to have his blood thinner reversed. If we have available beds, he can be admitted here afterwards for PT and OT and social consultation. Overall plan: Left chest tube drainage and monitoring History of Present Illness Narrative: 78 yo man has a history of falling. He has broken ribs from a couple months ago. He is on anticoagulation for atrial fibrillation. He fell again 2 days ago at home. He hit a wall and a door frame. His says he has had worsening shortness of breath and worsening pain since then. They finally decided to come back to the hospital today. CT shows significant, acute left?sided rib fractures as well as a large pleural?effusion and a small pneumothorax. There is a little bit of subcutaneous air. His hemoglobin levels are stable compared to historical. 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 Mononeuritis (Acute) Hyperlipidemia (Acute) Essential (primary) hypertension (Acute) BPH (benign prostatic hyperplasia) (Chronic) ADHD (Acute) ASCVD (arteriosclerotic cardiovascular disease) (Acute) Long-term current use of opiate analgesic (Acute) Tobacco use disorder (Acute) Venous stasis dermatitis (Acute) Peripheral edema (Acute) 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 Frequent falls (Acute) Medical History Viral meningitis Complete rotator cuff tear right Cervical spondylosis Bursitis 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 He is interactive and can have/carry on a conversation however. He is thin and elderly. Neuro: Alert and oriented x3. Cranial nerves are grossly intact. Motor and sensation seem intact x 4. Psych: Good mood and affect. Seemingly good insight and understanding into condition. Head: No visible head trauma Neck: Nontender no visible trauma Chest: Non-labored breathing. I do not appreciate any crepitus to palpation. Breath sounds are decreased on the left. There is visible ecchymosis along the left lateral chest wall. Heart: Irregularly irregular. Palpable rate of 104x Abdomen: Soft, nondistended and nontender Results Last Vital Signs Temp 96.3 F L 08/07/24 10:40 Pulse 113 H 08/07/24 13:40 Resp 22 08/07/24 13:40 BP 162/67 H 08/07/24 13:01 Pulse Ox 97 08/07/24 13:40 Labs 08/07/24 11:30 08/07/24 11:30 Labs: Laboratory Results - last 24 hr 08/07/24 08/07/24 08/07/24 11:30 11:41 12:57 WBC 16.56 H RBC 3.25 L Hgb 9.6 L Hct 29.6 L MCV 91 MCH 29.5 MCHC 32.4 RDW 15.6 H Plt Count 336 MPV 9.5 Immature Gran % 0.7 Neutrophils % 86.6 Lymphocytes % 7.0 Monocytes % 5.6 Eosinophils % 0.0 Basophils % 0.1 Nucleated RBC % 0.0 Absolute Neutrophils 14.34 H Absolute Lymphocytes 1.16 L Absolute Monocytes 0.93 H Absolute Eosinophils 0.00 Absolute Basophils 0.02 VBG pH 7.43 H VBG pCO2 49 VBG pO2 30 VBG HCO3 33 H VBG Total CO2 31 H VBG O2 Saturation 51 VBG Base Excess 9 H Sodium 129 L Potassium 3.5 Chloride 91 L Carbon Dioxide 32.9 H Anion Gap 5.1 BUN 40 H Creatinine 1.5 H Est GFR (CKD-EPI 2020) 47.65 Glucose 156 H Calcium 9.1 COVID-19 Source Nasopharynx SARS-CoV-2 (PCR) Negative Influenza Type A (PCR) Negative Influenza Type B (PCR) Negative RSV (PCR) Negative ABO/Rh A Negative Antibody Screen NEGATIVE
[2024-08-07 15:26] LABS: INR 1.4 (0.9-1.1); Prothrombin Time 13.4 sec (9.1-11.1)
--- NOTE | 2024-08-07 16:21 | ED.GENADUL_ITS ---
Discharge Plan Disposition Patient Disposition: Transfer-Acute Inpatient Care Specific Acute Inpt Facility: [facility] Discharge Details Clinical Impression: Closed rib fracture, Hemopneumothorax, Contusion of head, Frequent falls, Atrial fibrillation with rapid ventricular response, Hypoxia Primary Care Provider: Brijesh Elliott ED Provider: Esau Caruso Home Meds and New Rx's Prescriptions: No Action apixaban 5 mg tablet 5 mg PO BID atorvastatin 40 mg tablet 40 mg PO .COMPLEX Rx Instructions: 40 mg orally; Take 40 mg in AM and 20 mg qpm at 1500. naloxone 4 mg/actuation spray,non-aerosol 4 mg intranasal Q3M PRN Rx Instructions: spray 1 dose into ONE nostril; alternate nostrils w each dose until help arrives omeprazole 20 mg capsule,delayed release(DR/EC) 20 mg PO BID zolpidem 5 mg tablet 2.5 mg PO QHS multivitamin Tablet 1 tab PO DAILY trazodone 100 MG tablet 50 mg PO HS buprenorphine HCl 2 mg tablet, sublingual 2 mg sublingual DAILY Rx Instructions: take 1/2 twice a day finasteride 5 mg tablet 5 mg PO HS oxycodone 5 mg capsule 5 mg PO TID terazosin 2 MG capsule 2 mg PO HS Combivent Respimat 20-100 mcg/actuation mist 1 puff inhalation Q6H PRN Drizalma Sprinkle 20 mg capsule, delayed rel sprinkle 40 mg PO DAILY nitroglycerin 0.4 mg tablet, sublingual 0.4 mg sublingual Q5-15M PRN Rx Instructions: do not exceed 3 doses per episode furosemide 40 mg tablet 40 mg PO DAILY PRN Rx Instructions: take 40 mg in morning and 20 mg in evening HPI General Date/Time Provider Initiated Documentation: 08/07/24 10:52 . Limitations to Documentation: physical limitation . Information obtained by: patient and family . HPI Narrative: 78-year-old gentleman with past medical history of A-fib, on Eliquis, peripheral vascular disease, BPH, hypertension, COPD. The patient resented for evaluation after a fall. The reports that he fell 3 days ago. She noticed that he just collapsed onto the floor, she says that he falls often. It was unclear that there was a trip and fall or any other mechanical type etiology that caused him to fall. She states that he did hit his head. There was no noted loss of consciousness. Related Data Home Medications ?Medication ?Instructions ?Recorded ?Confirmed trazodone 100 mg tablet 50 mg PO HS 08/09/13 08/07/24 terazosin 2 mg capsule 2 mg PO HS 09/03/16 08/07/24 apixaban 5 mg tablet 5 mg PO BID 02/06/23 08/07/24 atorvastatin 40 mg tablet 40 mg PO .COMPLEX 02/06/23 08/07/24 multivitamin 1 tab PO DAILY 02/06/23 08/07/24 naloxone 4 mg/actuation nasal spray 4 mg intranasal Q3M PRN 02/06/23 08/07/24 omeprazole 20 mg capsule,delayed 20 mg PO BID 02/06/23 08/07/24 release zolpidem 5 mg tablet 2.5 mg PO QHS 02/06/23 08/07/24 buprenorphine HCl 2 mg sublingual 2 mg sublingual DAILY 03/08/24 08/07/24 tablet finasteride 5 mg tablet 5 mg PO HS 06/03/24 08/07/24 oxycodone 5 mg capsule 5 mg PO TID 06/03/24 08/07/24 duloxetine 20 mg capsule,delayed 40 mg PO DAILY 08/07/24 08/07/24 release sprinkle (Drizalma Sprinkle) furosemide 40 mg tablet 40 mg PO DAILY PRN 08/07/24 08/07/24 ipratropium 20 mcg-albuterol 100 1 puff inhalation Q6H PRN 08/07/24 08/07/24 mcg/actuation mist for inhalation (Combivent Respimat) nitroglycerin 0.4 mg sublingual 0.4 mg sublingual Q5-15M PRN 08/07/24 08/07/24 tablet Allergies Allergy/AdvReac Type Severity Reaction Status Date / Time fluticasone Allergy Unknown Headache Verified 08/07/24 12:06 gabapentin Allergy Unknown Psychosis Verified 08/07/24 12:06 pregabalin Allergy Unknown Psychosis Verified 08/07/24 12:06 doxycycline AdvReac Intermediate vomiting Verified 08/07/24 12:06 morphine AdvReac Unknown Psychosis Verified 08/07/24 12:06 General Stated Complaint: Trauma HAROLDO: 3 Exam Narrative Exam Narrative: Review of Systems: All systems reviewed & are unremarkable except as noted in HPI and below Chronically ill-appearing, respiratory distress Large hematoma over the left forehead, no facial instability or malocclusion PERRL, normal conjunctiva Tachycardia irregular Hypoxia 82%, increased work of breathing, diminished breath sounds bilaterally Nondistended abdomen soft nontender Extremities w edema multiple skin lesions and bruising no focal neurologic deficits Course Vital Signs Vital signs: Vital Signs Temperature 35.7 C L 08/07/24 10:40 Pulse 108 H 08/07/24 10:40 Respiratory Rate 16 08/07/24 10:40 Blood Pressure 169/95 H 08/07/24 10:40 Pulse Oximetry 96 08/07/24 10:40 Temperature 35.7 C L 08/07/24 10:40 Temperature Source Oral 08/07/24 10:40 Pulse 119 H 08/07/24 15:31 Pulse 115 H 08/07/24 15:31 Respiratory Rate 18 08/07/24 15:31 Respiratory Effort Short of Breath, Labored, Pursed Lip, Incrsd Work of Breathing 08/07/24 12:28 Respiratory Depth Shallow 08/07/24 12:28 Blood Pressure 125/65 08/07/24 15:30 Blood Pressure Mean 77 08/07/24 15:30 Blood Pressure Position Sitting 08/07/24 10:40 Pulse Oximetry 92 08/07/24 15:31 Oxygen Delivery Method Room Air 08/07/24 10:40 Oxygen Flow Rate 0 08/07/24 10:40 Pain Level 8 08/07/24 10:40 Lab/Test Results Lab/Test Results: Laboratory Tests Range/Units 08/07/24 08/07/24 08/07/24 11:30 11:41 12:57 WBC (4.4-10.8) 10^3/uL 16.56 H RBC (4.36-5.78) 10^6/uL 3.25 L Hgb (13.5-17.5) g/dL 9.6 L Hct (40.0-50.0) % 29.6 L MCV (80-95) fL 91 MCH (27.0-33.0) pg 29.5 MCHC (32.0-36.0) % 32.4 RDW (11.8-14.1) % 15.6 H Plt Count (130-400) 10^3/uL 336 MPV (8.0-11.0) fL 9.5 Immature Gran % % 0.7 Neutrophils % % 86.6 Lymphocytes % % 7.0 Monocytes % % 5.6 Eosinophils % % 0.0 Basophils % % 0.1 Nucleated RBC % (0.0-0.3) % 0.0 Absolute Neutrophils (1.2-6.7) 10^3/uL 14.34 H Absolute Lymphocytes (1.2-3.4) 10^3/uL 1.16 L Absolute Monocytes (0.1-0.8) 10^3/uL 0.93 H Absolute Eosinophils (0.0-0.7) 10^3/uL 0.00 Absolute Basophils (0.0-0.2) 10^3/uL 0.02 PT (9.1-11.1) sec 13.4 H INR (0.9-1.1) 1.4 H VBG pH (7.31-7.41) 7.43 H VBG pCO2 (41-51) mmHg 49 VBG pO2 mmHg 30 VBG HCO3 (23-28) mmol/L 33 H VBG Total CO2 (24-29) mmol/L 31 H VBG O2 Saturation % 51 VBG Base Excess (-2-3) mmol/L 9 H Sodium (136-145) mmol/L 129 L Potassium (3.5-5.1) mmol/L 3.5 Chloride (98-107) mmol/L 91 L Carbon Dioxide (21.0-32.0) mmol/L 32.9 H Anion Gap (3-11) mmol/L 5.1 BUN (7-18) mg/dL 40 H Creatinine (0.70-1.30) mg/dL 1.5 H Est GFR (CKD-EPI 2020) (mL/min/1.73m2) 47.65 Glucose (74-106) mg/dL 156 H Calcium (8.5-10.1) mg/dL 9.1 COVID-19 Source Nasopharynx SARS-CoV-2 (PCR) (Negative) Negative Influenza Type A (PCR) (Negative) Negative Influenza Type B (PCR) (Negative) Negative RSV (PCR) (Negative) Negative ABO/Rh A Negative Antibody Screen NEGATIVE Medical Decision Making Emergent evaluation of head injury after a fall. The patient presents with several complicating issues. He is currently on Eliquis. And the patient has a noted head injury. Concern for skull fracture or acute intracranial bleeding. Will send for CT imaging of this area The patient is not also noted to be A-fib with RVR. He does have a history of A-fib. I reviewed his medical record and not noted a rate controlling medication that he takes. EKG does not demonstrate acute ischemic changes. he is hemodynamically stable and does not require cardioversion. Will give IV diltiazem for rate control The patient also is noted to have signs of respiratory distress with increased work of breathing and hypoxia. He has a history of COPD. Will give breathing treatments and steroids. Will give a dose of Lasix and control heart rate and reassess respiratory function before starting on positive pressure. The patient's blood work was reviewed and there is mild leukocytosis noted. His hemoglobin is 9.6 which is low, but appears to be his baseline and there is no acute change there. His blood gas does not demonstrate acute respiratory failure. His renal function is at baseline. the patient's viral testing was negative. His head CT did not demonstrate a skull fracture or an acute intracranial process. I reviewed his chest x-ray and noted significant number of rib fractures and large pneumothorax hemothorax on the left side. Given this abnormality, I sent the patient for CT imaging which further confirmed rib fractures of 3 through 12 with large complex loculated hemopneumothorax. From a respiratory standpoint the patient is stable and comfortable on 4 L of nasal cannula. He is hemodynamically stable. I discussed with [facility] trauma surgery and they feel that this patient would benefit from transfer. They do not feel that he needs an emergent placement of his chest tube given the complicated nature, they feel that he likely needs IR drainage. The patient has been accepted for emergent transfer. They are recommending Kcentra. At this time I have added coags and noted that the INR is elevated at 1.4. A dose of Kcentra was given with completion by paramedics. The patient will be transported emergently to the [facility] emergency department for trauma admission. Quality:SDOH Health Related Social Needs: No Data to Display Critical Care Time Critical Care Time Critical Care Time: Yes Total Critical Care Time: 38 Attestation: CRITICAL CARE Upon my evaluation, this patient had a high probability of imminent or life- threatening deterioration due to trauma which required my direct attention, intervention, and personal management. I have personally provided 38 minutes of critical care time exclusive of time spent on separately billable procedures. Time includes review of laboratory data, radiology results, discussion with consultants, and monitoring for potential decompensation. Interventions were performed as documented above [facility] All Active Problems (Updated 08/07/24 @ 15:14 by Esau Caruso MD) Hypoxia (Acute) Atrial fibrillation with rapid ventricular response (Acute) Frequent falls (Acute) Contusion of head (Acute) Hemopneumothorax (Acute) Closed rib fracture (Acute) Hemopneumothorax on left (Acute) Pain in joint, foot, left (Acute) Corns and callosities (Acute) Cellulitis (Acute) Venous (peripheral) insufficiency (Acute) PAD (peripheral artery disease) (Acute) Onychomycosis (Acute) Neuropathy (Acute) Atrial fibrillation (Chronic) Hearing loss (Acute) with subjective 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 Mononeuritis (Acute) Hyperlipidemia (Acute) Essential (primary) hypertension (Acute) BPH (benign prostatic hyperplasia) (Chronic) ADHD (Acute) ASCVD (arteriosclerotic cardiovascular disease) (Acute) Long-term current use of opiate analgesic (Acute) Tobacco use disorder (Acute) Venous stasis dermatitis (Acute) Peripheral edema (Acute) 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 Frequent falls (Acute) Medical History Viral meningitis Complete rotator cuff tear right Cervical spondylosis Bursitis 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
== END 2024-08-07 17:40 | disposition short-term general hospital (02) ==
PROVIDERS: Emergency Provider Emergency Medicine; PCP Internal Medicine
DX: S22.42XA Multiple fractures of ribs, left side, initial encounter for closed fracture (principal); S27.2XXA Traumatic hemopneumothorax, initial encounter; S00.93XA Contusion of unspecified part of head, initial encounter; R09.02 Hypoxemia; I48.91 Unspecified atrial fibrillation; I10 Essential (primary) hypertension; J44.9 Chronic obstructive pulmonary disease, unspecified; F17.210 Nicotine dependence, cigarettes, uncomplicated; Z79.01 Long term (current) use of anticoagulants; W18.39XA Other fall on same level, initial encounter; Y93.89 Activity, other specified; Y92.018 Other place in single-family (private) house as the place of occurrence of the external cause
CPT/HCPCS: 80048; 82805; 86850; 86900; 86901; 87637; 93005; 94640; 96374; 96375; 96376; 99285; 70450; 71045; 71260; 72125; 85025; 85610; 93010; J1940; J2003; J2919; J3490; J7168; J7620

== ENCOUNTER 2024-10-19 12:36 | Observation (INO) | payer OTHER, SELFPAY ==
[2024-10-19] VITALS (70 sets, daily range): BP systolic 103–130; BP diastolic 51–76; PULSE 73–170; RESP 2–27; TEMP 36.2–36.8; O2SAT 90–100
--- NOTE | 2024-10-19 12:30 | DI.CT_ITS ---
Exam(s) CT CHEST/ABD/PEL W EXAM: CT CHEST/ABD/PEL W CLINICAL HISTORY: fall, dyspnea, on eliquis. TECHNIQUE: Imaging Protocol: Axial computed tomography images with coronal and sagittal reformatted images were created and reviewed. Computer aided detection (CAD) was utilized. CONTRAST MATERIAL: Intravenous: Omnipaque 350 Contrast volume:100 ml Oral: yes / no COMPARISON: CT CT CHEST/ABD/PEL W from 06/03/[address] CHEST W from 08/07/2024 CR XR PORTABLE CHEST AP from 10/19/2024 FINDINGS: CHEST: Pulmonary parenchyma: There are increased densities at both lung bases, left greater than right. The re is interlobular septal thickening and pulmonary artery prominence. The findings are suspicious fo r CHF. Basilar pneumonia and atelectasis are there are underlying emphysematous changes greater at t he upper lobes. Not excluded. No dominant measurable mass. Tracheobronchial tree: No bronchiectasis. No mucous plugging.No bronchial wall thickening. Pleura: There is a small to moderate-sized left pleural effusion and trace right pleural effusion. N o pneumothorax. Mediastinum: Mildly enlarged mediastinal lymph nodes, stable. Pulmonary arteries: No visible emboli. Cardiovascular: Heart is enlarged. There is mitral annular calcification and coronary artery calcifi cation. No pericardial effusion. Thoracic aorta non-dilated. Bones: Fixation plate in left clavicle. Old bilateral rib fractures. Fixation plates noted in lower left ribs. No lytic or blastic lesions. Severe degenerative changes of the mid thoracic spine whic h appear unchanged from prior. No acute spinal fractures. Soft tissues: Unremarkable. ABDOMEN and PELVIS: Liver: Normal density. No suspicious mass. Gallbladder and biliary tract: No evidence of stones or wall thickening. No biliary dilatation. Pancreas: Normal density, no abnormal calcifications or inflammatory process. Spleen: Normal. Kidneys: Normal size, contour and axis. No radiodense stones. No obstructive uropathy. No suspicious masses seen. Adrenal glands: Stable left adrenal nodule. Surgical clips in the right adrenal fossa. Aorta: Abdominal portion non-dilated. Severe atherosclerotic changes. Lymph nodes: Within normal limits. Soft tissues: Unremarkable mild diffuse body wall edema. Greater edema seen in the anterior inferior abdominal wall fat and scrotal region. Bilateral fat containing inguinal hernias containing some fl uid. Bladder: Mild diffuse wall thickening. Bowel: No obstruction or bowel wall thickening. Mild diverticulosis. No evidence of diverticulitis . Moderate quantity of stool. Peritoneal cavity: No ascites. No focal collection. No mesenteric inflammatory response. No free ai r. Bones: Unremarkable for age. Reproductive organs: Question of prior prostatectomy. IMPRESSION: Bilateral pleural effusions, left greater than right. Basilar atelectasis versus infiltrates or pulm onary edema. Interstitial changes in a pulmonary artery prominence along with enlarged heart is susp icious for CHF. Old bilateral rib fractures and hardware. No acute fractures are seen in the chest abdomen or pelvis . Body wall edema, greatest in the scrotal region and inferior aspect of the pannus. RADIATION DOSE DELIVERED: 874.05mGy.cm Total DLP DATA REPOSITORY: All CT scans at this facility are submitted to the National Radiology Data Registry (NRDR) Dose Index Registry (DIR) with the [employer] ([employer]). RADIATION OPTIMIZATION: All CT scans at this facility use at least one of these dose optimization te chniques: automated exposure control; mA and/or kV adjustment per patient size (includes targeted exa ms where dose is matched to clinical indication); or iterative reconstruction.
--- NOTE | 2024-10-19 12:30 | RT.EKG_ITS ---
APPROVED REPORT Exam: Resting ECG Reason for Exam: dyspnea Patient Location: E HR:83 bpm ECG Measurements Heart Rate 83 AXIS MO [id number] P [id number] QRSd 108 QRS -51 QT 568 T 36 QTc 659 Conclusion Atrial fibrillation...V-rate 71- 99, irreg A-activity Left anterior fascicular block...axis(240,-40), init forces inf Anterior infarct, old...Q >40mS, abnormal ST-T, V2-V5 Prolonged QT interval...QTc >500mS No Occlusion GA
--- NOTE | 2024-10-19 12:30 | DI.CT_ITS ---
Exam(s) CT HEAD CERV SPINE FACIAL WO EXAM: CT HEAD CERV SPINE FACIAL WO CLINICAL HISTORY: fall, confusion. TECHNIQUE: Imaging Protocol: Axial computed tomography images with coronal and sagittal reformatted images were created and reviewed COMPARISON: CT CT HEAD CERVICAL SPINE WO from 08/07/2024 FINDINGS: CT Head: Ventricles and Extra axial spaces: Normal in size and morphology for the patient's age. Hemorrhage: None. Cerebral parenchyma: No evidence of acute hemorrhage or acute infarct. White matter changes of small vessel disease. Mild atrophy. Midline shift: None. Brainstem/Cerebellum: Normal. Calvarium: Normal. Visualized Paranasal sinuses/Mastoids: Clear. Soft Tissues: Unremarkable. CT Face: Facial Bones: No acute fracture is noted in facial bones. There is an old fracture of the right in ferior orbital wall. No evidence of muscle entrapment. Sinuses and Mastoids: Minimal mucous retention at the floor of the left maxillary sinus. Globes, extraocular muscles, optic nerves and retrobulbar fat: Normal. Upper aerodigestive tract: Normal. Mandible and bilateral temporomandibular joints: Normal. Soft tissues: Normal. CT Cervical Spine: Bones: No acute fracture or subluxation. Degenerative changes. Soft Tissues: Unremarkable. Lung Apices: Clear. IMPRESSION: 1. No acute intracranial process. 2. No acute fracture or subluxation in the cervical spine. 3. No acute facial fracture. Old right orbital floor fracture. RADIATION DOSE DELIVERED: 1,762.72mGy.cm Total DLP DATA REPOSITORY: All CT scans at this facility are submitted to the National Radiology Data Registry (NRDR) Dose Index Registry (DIR) with the [employer] (ACR). RADIATION OPTIMIZATION: All CT scans at this facility use at least one of these dose optimization te chniques: automated exposure control; mA and/or kV adjustment per patient size (includes targeted exa ms where dose is matched to clinical indication); or iterative reconstruction.
[2024-10-19] MEDS: Normal Saline - Diluent 50 ML VIAL IJ (12:54)
--- NOTE | 2024-10-19 12:54 | DI.RAD_ITS ---
Exam(s) XR PORTABLE CHEST AP EXAM: XR PORTABLE CHEST AP CLINICAL HISTORY: concern for pneumo, sob TECHNIQUE: 2D digital imaging was performed. COMPARISON: CT CT CHEST W from 08/07/2024 CR XR CHEST 1V IN DI DEPT from 08/07/2024 FINDINGS: Overlying monitoring leads. LUNGS: Vascular prominence and increased interstitial markings suspicious for CHF may be a small left pleural effusion versus pleural scarring related to previous trauma. No evidence of pneumothorax. HEART: Nor enlarged. Mitral annular calcification. AORTA: Normal diameter. Calcification at arch. BONES: Fixation plates noted in the left clavicle and left lower ribs. Soft tissues: Unremarkable. IMPRESSION: Findings suspicious for CHF. No pneumothorax DATA REPOSITORY: RADIATION DOSE DELIVERED:
[2024-10-19] MEDS: Omnipaque 350 MG/ML 100 ML BTL IJ (12:55)
[2024-10-19 12:56] LABS: Abs Immature Grans 0.04 10^3/uL (0.0-0.06); Absolute Basophil Count 0.03 10^3/uL (0.0-0.2); Absolute Eosinophil Count 0.02 10^3/uL (0.0-0.7); Absolute Lymphocyte Count 0.87 10^3/uL (1.2-3.4); Basophils % 0.4 %; Eosinophils % 0.3 %; HCT 27.8 % (40.0-50.0); HGB 7.9 g/dL (13.5-17.5); Immature Grans % 0.6 %; MCH 26.5 pg (27.0-33.0); MCHC 28.4 % (32.0-36.0); MCV 93 fL (80-95); Monocytes % 8.3 %; Neutrophils % 78.4 %; Platelet Count 203 10^3/uL (130-400); RBC 2.98 10^6/uL (4.36-5.78); RDW 16.5 % (11.8-14.1); RDW-SD 56.4 fL; WBC 7.26 10^3/uL (4.4-10.8)
[2024-10-19] MEDS: Naloxone 0.4 MG/ML VIAL 0.2 MG IVP (13:02)
[2024-10-19 13:27] LABS: Diff Comment Diff Reviewed; Hypochromasia 2+
[2024-10-19 13:34] LABS: ALT 10 U/L (16-63); AST 17 U/L (15-37); Alkaline Phosphatase 93 U/L (46-116); Anion Gap 3.7 mmol/L (3-11); BUN 16 mg/dL (7-18); Bilirubin, Total 0.6 mg/dL (0.2-1.0); CO2 33.3 mmol/L (21.0-32.0); CREATININE 0.8 mg/dL (0.70-1.30); Calcium 8.5 mg/dL (8.5-10.1); Chloride 103 mmol/L (98-107); Estimated GFR 91.15 (mL/min/1.73m2); Glucose 88 mg/dL (74-106); Potassium 3.7 mmol/L (3.5-5.1); Sodium 140 mmol/L (136-145); Total Protein 6.7 g/dL (6.4-8.2)
[2024-10-19 13:36] LABS: Troponin I 10 ng/L (<or=76)
[2024-10-19 13:41] LABS: NT-proBNP 5440 pg/mL (<300)
[2024-10-19] MEDS: Albuterol/Ipratropium 3 ML UPD VIAL UPD ×2 (13:47→19:29)
[2024-10-19 14:10] LABS: BE (Venous) 4 mmol/L (-2-3); HCO3 (Venous) 30 mmol/L (23-28); Lactate 0.5 mmol/L (<or=2.0); O2 Sat (Venous) 82 %; TCO2 (Venous) 30 mmol/L (24-29); pH (Venous) 7.29 (7.31-7.41); pO2 (Venous) 53 mmHg
[2024-10-19] MEDS: Furosemide 20 MG/2 ML VIAL IVP ×2 (14:10→17:25)
--- NOTE | 2024-10-19 14:11 | W.EDPROG ---
Date of service: 10/19/24 Time of Service: 14:11 Medical Decision Making I participate in this patient's care by completing a bedside ultrasound. Please see his JARAD's notes for details. He had negative E-FAST exam however he did have signs of acute heart failure with reduced ejection fraction. He will require hospitalization. He is a DNI DNR. He was initiated on rescue BiPAP in the setting of his acute respiratory failure with hypoxia and hypercarbia. He will be hospitalized locally. Quality:[facility] Health Related Social Needs: No Data to Display Discharge Plan Disposition Patient Disposition: Admit to [facility] Discharge Details Clinical Impression: Acute hypercapnic respiratory failure, CHF (congestive heart failure), Anemia Primary Care Provider: Brijesh Elliott ED Provider: Toshia Vilchis Home Meds and New Rx's Prescriptions: No Action atorvastatin 40 mg tablet 40 mg PO .COMPLEX Rx Instructions: 40 mg orally; Take 40 mg in AM and 20 mg qpm at 1500. naloxone 4 mg/actuation spray,non-aerosol 4 mg intranasal Q3M PRN Rx Instructions: spray 1 dose into ONE nostril; alternate nostrils w each dose until help arrives omeprazole 20 mg capsule,delayed release(DR/EC) 20 mg PO BID multivitamin Tablet 1 tab PO DAILY trazodone 100 MG tablet 50 mg PO HS finasteride 5 mg tablet 5 mg PO HS oxycodone 5 mg capsule 5 mg PO TID risperidone [Risperdal] 1 mg tablet 1 mg PO BID venlafaxine 75 mg tablet 75 mg PO DAILY Combivent Respimat 20-100 mcg/actuation mist 1 puff inhalation Q6H PRN nitroglycerin 0.4 mg tablet, sublingual 0.4 mg sublingual Q5-15M PRN Rx Instructions: do not exceed 3 doses per episode POCUS Exam (ED) Limited Cardiac Exam DATE OF EXAM: 10/19/24 TIME OF EXAM: 14:16 PROVIDER THAT PERFORMED THE STUDY: Gerson Carmona IS THIS A REPEAT EXAM DURING THIS ENCOUNTER: no REASON FOR EXAM: Dyspnea VISUALIZED STRUCTURES: Four Chambers, Left ventricle, LVOT and Other (Lungs bilaterally) structure: Lungs bilaterally VIEW OBTAINED: Apical 4-Chamber, Parasternal long-axis and Subxiphoid PERTINENT FINDINGS/IMPRESSION: No pericardial effusion and No RV dilation DIFFERENTIAL DIAGNOSES: Aortic outflow track less than 4 cm, poor squeeze, RV less than LV, no significant pericardial effusion. Bilateral B-lines. Exam complete Efast Exam PROVIDER THAT PEFORMED THE STUDY: Gerson Carmona IS THIS A REPEAT EXAM DURING THIS ENCOUNTER: no REASON FOR EXAM: Other (Trauma) indication: Shortness of breath VISUALIZED STRUCTURES: Hepatorneal space, Pelvis, Pericardium, Perisplenic space, Pleural space/left, Pleural space/right and Other structure: Bilateral lungs PERTINENT FINDINGS/IMPRESSION: no apparent free fluid, no pericardial effusion, no pleural effusion on the left side, no pleural effusion on the right side, no pneumothorax on left side and no pneumothorax on right side INCIDENTAL FINDINGS: Negative eFAST exam Limited Transthoracic Echo: Exam complete Limited Abdominal Exam: Exam complete Limited Retroperitoneal Exam: Exam complete
[2024-10-19 14:13] LABS: pCO2 (Venous) 64 mmHg (41-51)
--- NOTE | 2024-10-19 14:31 | ED.GENADUL_ITS ---
Discharge Plan Disposition Patient Disposition: Admit to [facility] Discharge Details Clinical Impression: Acute hypercapnic respiratory failure, CHF (congestive heart failure), Anemia Primary Care Provider: Brijesh Elliott ED Provider: Toshia Vilchis Home Meds and New Rx's Prescriptions: No Action atorvastatin 40 mg tablet 40 mg PO .COMPLEX Rx Instructions: 40 mg orally; Take 40 mg in AM and 20 mg qpm at 1500. naloxone 4 mg/actuation spray,non-aerosol 4 mg intranasal Q3M PRN Rx Instructions: spray 1 dose into ONE nostril; alternate nostrils w each dose until help arrives omeprazole 20 mg capsule,delayed release(DR/EC) 20 mg PO BID multivitamin Tablet 1 tab PO DAILY trazodone 100 MG tablet 50 mg PO HS finasteride 5 mg tablet 5 mg PO HS oxycodone 5 mg capsule 5 mg PO TID risperidone [Risperdal] 1 mg tablet 1 mg PO BID venlafaxine 75 mg tablet 75 mg PO DAILY Combivent Respimat 20-100 mcg/actuation mist 1 puff inhalation Q6H PRN nitroglycerin 0.4 mg tablet, sublingual 0.4 mg sublingual Q5-15M PRN Rx Instructions: do not exceed 3 doses per episode HPI General Date/Time Provider Initiated Documentation: 10/19/24 12:42 . HPI Narrative: 78-year-old male with hemothorax, peripheral arterial disease, peripheral insufficiency, atrial fibrillation, and BPH. Reports fall at 1800 hours, confusion, and dyspnea at 0800 hours. Oxygen level at 80%. Sent for further assessment. Status post rib splinting after multi-rib fracture and hemopneumothorax in 07/2024, residing at rehabilitation center. Related Data Home Medications ?Medication ?Instructions ?Recorded ?Confirmed trazodone 100 mg tablet 50 mg PO HS 08/09/13 10/19/24 atorvastatin 40 mg tablet 40 mg PO .COMPLEX 02/06/23 10/19/24 multivitamin 1 tab PO DAILY 02/06/23 10/19/24 naloxone 4 mg/actuation nasal spray 4 mg intranasal Q3M PRN 02/06/23 10/19/24 omeprazole 20 mg capsule,delayed 20 mg PO BID 02/06/23 10/19/24 release finasteride 5 mg tablet 5 mg PO HS 06/03/24 10/19/24 oxycodone 5 mg capsule 5 mg PO TID 06/03/24 10/19/24 ipratropium 20 mcg-albuterol 100 1 puff inhalation Q6H PRN 08/07/24 10/19/24 mcg/actuation mist for inhalation (Combivent Respimat) nitroglycerin 0.4 mg sublingual 0.4 mg sublingual Q5-15M PRN 08/07/24 10/19/24 tablet risperidone 1 mg tablet (Risperdal) 1 mg PO BID 10/19/24 10/19/24 venlafaxine 75 mg tablet 75 mg PO DAILY 10/19/24 10/19/24 Allergies Allergy/AdvReac Type Severity Reaction Status Date / Time fluticasone Allergy Unknown Headache Verified 10/19/24 12:52 gabapentin Allergy Unknown Psychosis Verified 10/19/24 12:52 pregabalin Allergy Unknown Psychosis Verified 10/19/24 12:52 doxycycline AdvReac Intermediate vomiting Verified 10/19/24 12:52 morphine AdvReac Unknown Psychosis Verified 10/19/24 12:52 General Stated Complaint: SOB/SuddenOnset HAROLDO: 2 Exam Narrative Exam Narrative: General Appearance: Appears tired, falls asleep during discussion but wakes to voice stimuli. Vital signs: Within normal limits. HEENT: Pupils equal, round, reactive to light and accommodation. Respiratory: Increased work of breathing and crackles in lungs. Cardiovascular: Significant peripheral edema. Gastrointestinal: Abdomen nontender. Genitourinary: Male, significant tinea and cystic acne in groin without open region. Back, Musculoskeletal: No tenderness in hips or cervical spine. Extremities: Nontender abrasions on elbow and right knee. Skin: Warm and dry, no rash. Neurological: Follows basic commands. Other observations: None. Course Vital Signs Vital signs: Vital Signs Temperature 36.6 C 10/19/24 12:36 Pulse 80 10/19/24 12:36 Respiratory Rate 16 10/19/24 12:36 Blood Pressure 115/65 10/19/24 12:36 Pulse Oximetry 92 10/19/24 12:36 Temperature 36.6 C 10/19/24 12:36 Temperature Source Tympanic 10/19/24 12:36 Pulse 75 10/19/24 13:47 Respiratory Rate 20 10/19/24 13:47 Blood Pressure 115/65 05/02/25 12:36 Pulse Oximetry 95 10/19/24 13:47 Oxygen Delivery Method Nasal Cannula 10/19/24 13:47 Oxygen Flow Rate 2 10/19/24 13:47 Pain Level 4 10/19/24 12:36 Lab/Test Results Lab/Test Results: Laboratory Tests Range/Units 10/19/24 10/19/24 10/19/24 12:50 12:58 14:00 WBC (4.4-10.8) 10^3/uL 7.26 RBC (4.36-5.78) 10^6/uL 2.98 L Hgb (13.5-17.5) g/dL 7.9 L Hct (40.0-50.0) % 27.8 L MCV (80-95) fL 93 MCH (27.0-33.0) pg 26.5 L MCHC (32.0-36.0) % 28.4 L RDW (11.8-14.1) % 16.5 H Plt Count (130-400) 10^3/uL 203 MPV (8.0-11.0) fL 9.0 Immature Gran % % 0.6 Neutrophils % % 78.4 Lymphocytes % % 12.0 Monocytes % % 8.3 Eosinophils % % 0.3 Basophils % % 0.4 Nucleated RBC % (0.0-0.3) % 0.0 Absolute Neutrophils (1.2-6.7) 10^3/uL 5.70 Absolute Lymphocytes (1.2-3.4) 10^3/uL 0.87 L Absolute Monocytes (0.1-0.8) 10^3/uL 0.60 Absolute Eosinophils (0.0-0.7) 10^3/uL 0.02 Absolute Basophils (0.0-0.2) 10^3/uL 0.03 RBC Morphology See Below Hypochromasia 2+ VBG pH (7.31-7.41) 7.29 L VBG pCO2 (41-51) mmHg 64 H* VBG pO2 mmHg 53 VBG HCO3 (23-28) mmol/L 30 H VBG Total CO2 (24-29) mmol/L 30 H VBG O2 Saturation % 82 VBG Base Excess (-2-3) mmol/L 4 H VBG Lactate (<or=2.0) mmol/L 0.5 Sodium (136-145) mmol/L 140 Potassium (3.5-5.1) mmol/L 3.7 Chloride (98-107) mmol/L 103 Carbon Dioxide (21.0-32.0) mmol/L 33.3 H Anion Gap (3-11) mmol/L 3.7 BUN (7-18) mg/dL 16 Creatinine (0.70-1.30) mg/dL 0.8 Est GFR (CKD-EPI 2020) (mL/min/1.73m2) 91.15 Glucose (74-106) mg/dL 88 Calcium (8.5-10.1) mg/dL 8.5 Total Bilirubin (0.2-1.0) mg/dL 0.6 AST (15-37) U/L 17 ALT (16-63) U/L 10 L Alkaline Phosphatase (46-116) U/L 93 Troponin I (<or=76) ng/L 10 NT-Pro-B Natriuret Pep (<300) pg/mL 5440 H Total Protein (6.4-8.2) g/dL 6.7 Albumin (3.4-5.0) g/dL 2.0 L ABO/Rh A Negative Antibody Screen NEGATIVE Medical Decision Making Laboratory Studies BNP elevated at 5000, increased from 4000. Hemoglobin of 7.9, hematocrit of 27. Imaging CT head and cervical spine does not show evidence of acute abnormality. Chest x- ray shows infiltrates or redness, and pleural effusion bilaterally in the chest. CT chest, abdomen, pelvis shows bilateral pleural effusions with.omegaly. Initial Assessment: 78-year-old male with history of recent hemothorax, peripheral arterial disease, peripheral insufficiency, atrial fibrillation, BPH. Presents with fall last evening, confusion, and difficulty breathing this morning. Oxygen reported at 80%. ED Course: - Chest x-ray ordered to evaluate for recurrent pneumothorax; infiltrates and pleural effusion bilaterally. - Patient hypoxic at 88%, placed on 1-2 L O2, tolerating well. - CT head and cervical spine shows no acute abnormality. - CT chest, abdomen, pelvis ordered; bilateral pleural effusions with cardiomegaly, suspect acute CHF. - VBG elevated with bicarb 64; BiPAP initiated. - Troponin negative, BNP elevated at 5000, increased from 4000. - Hemoglobin 7.9, hematocrit 27, decreased from July. - FAST exam performed without acute traumatic abnormality. - Curly B lines on thoracic lung exam. - Cardiac exam shows evidence of decreased ejection fraction; Lasix initiated. - Gonzalez catheter placed. - Nystatin cream initiated for wounds. - Oxygen removed, BiPAP placed at 10/5 and 21%, tolerating well. - Zosyn administered for suspected pneumonia. - 80 mg Solu-Medrol given for COPD. - Two DuoNebs given with symptom improvement. - Case discussed with Dr. Rodríguez for hospital admission. Final Assessment: Patient with acute CHF, hypoxia, suspected pneumonia, COPD, and wounds. Multiple diagnostic tests and treatments initiated, including oxygen therapy, BiPAP, Lasix, Zosyn, Solu-Medrol, DuoNebs, Gonzalez catheter, and nystatin cream. Patient requires hospital admission for continued monitoring and assessment. Clinical Impression: - Acute CHF - Hypoxia - Suspected pneumonia - COPD - Wounds - Urinary retention Disposition: - Admission: Patient will be admitted to the hospital for additional continued monitoring and assessment. MDM Components Evaluation: - Number of Differential Diagnoses or Management Options: Acute CHF, hypoxia, suspected pneumonia, COPD, wounds, urinary retention. - Amount and Complexity of Data Reviewed: Chest x-ray, CT head and cervical spine, CT chest, abdomen, pelvis, VBG, troponin, BNP, hemoglobin, hematocrit, FAST exam, thoracic lung exam, cardiac exam. - Risk of Complication and Morbidity or Mortality: High risk due to acute CHF, hypoxia, suspected pneumonia, COPD, and potential for sepsis. Quality:[facility] Health Related Social Needs: No Data to Display Critical Care Time Critical Care Time Attestation: Approximately 45 minutes of critical care time secondary to hypercarbic respiratory failure requiring BiPAP, oxygen supplementation IV antibiotics IV steroids DuoNeb administration Lasix intake and outtake monitoring PFSH All Active Problems (Updated 10/19/24 @ 15:11 by KEI Tracy) Anemia (Chronic) CHF (congestive heart failure) (Chronic) Acute hypercapnic respiratory failure (Acute) Yeast infection of the skin (Acute) Acute respiratory failure with hypoxia and hypercarbia (Acute) Hemopneumothorax on left (Acute) Pain in joint, foot, left (Acute) Corns and callosities (Acute) Cellulitis (Acute) Venous (peripheral) insufficiency (Acute) PAD (peripheral artery disease) (Acute) Onychomycosis (Acute) Neuropathy (Acute) Atrial fibrillation (Chronic) Hearing loss (Acute) with subjective 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 Mononeuritis (Acute) Hyperlipidemia (Acute) Essential (primary) hypertension (Acute) BPH (benign prostatic hyperplasia) (Chronic) ADHD (Acute) ASCVD (arteriosclerotic cardiovascular disease) (Acute) Long-term current use of opiate analgesic (Acute) Tobacco use disorder (Acute) Venous stasis dermatitis (Acute) Peripheral edema (Acute) 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 Frequent falls (Acute) Medical History Viral meningitis Complete rotator cuff tear right Cervical spondylosis Bursitis 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
[2024-10-19 14:40] LABS: Troponin I 7 ng/L (<or=76)
--- NOTE | 2024-10-19 14:44 | W.PM.HP.N ---
Date of service: 10/19/24 Time of Service: 14:45 Assessment and Plan Assessment and plan (1) Acute respiratory failure with hypoxia and hypercarbia: Status: Acute Assessment and plan: Does not meet criteria for sepsis on arrival Has not had fever, elevated white count, or elevated lactic acid. Will add procalcitonin and resp viral panel Receiving Zosyn and Solu-Medrol in the emergency department, in addition to 20 mg of IV Lasix. Has diuresed well from the Lasix marked improvement in his symptoms imaging and labs more consistent with fluid overload continue diuresis and repeat CXR in am follow labs scheduled duonebs and albuterol prn incentive spirometry (2) CHF (congestive heart failure): Status: Chronic Assessment and plan: Patient previously on Lasix which had been discontinued Update echocardiogram when available, will have crusher tender try to obtain copy of previous echocardiogram continue diuresis Monitor intake and output closely, daily weights Follow labs to monitor kidney function and electrolytes (3) Atrial fibrillation: Status: Chronic Assessment and plan: Rate is controlled no longer anticoagulated d/t history of frequent falls with significant injuries including hemopneumothorax (4) BPH (benign prostatic hyperplasia): Status: Chronic Assessment and plan: Monitor for signs of urinary retention continue finasteride (5) Yeast infection of the skin: Status: Acute Assessment and plan: Significant. Groin and periarea Will use IV fluconazole in addition to topical antifungal cream may have component of cellulitis, will add rocephin (6) Chronic low back pain: Status: Chronic Assessment and plan: continue home medications discussed with DR Rodríguez History of Present Illness Narrative: This is a 78-year-old male patient past medical history significant for atrial fibrillation, hypertension, BPH, peripheral artery disease, hemopneumothorax on the left who is at [facility] presented to the emergency department today with complaints of sudden shortness of breath with a fall reported secondary to weakness. His workup in the emergency department did include CAT scans of the head and cervical spine chest abdomen and pelvis he was found to have bilateral pleural effusions with bibasilar atelectasis versus infiltrates versus pulmonary edema per CT he did have no hemothorax or pneumothorax. His white count and lactic acid both normal. CAT scan of the head C-spine and facial bones showed no acute intracranial process no cervical spine or facial fractures. Notable labs included a BNP of 5440 troponin x 2 negative and no significant electrolyte abnormalities. Creatinine and BUN 0.8 and 16. In the emergency department he did receive Zosyn, IV steroids, IV diuretics. He was placed on oxygen at 2 L nasal cannula maintaining sats in the mid to high 90s. He had good effect from the Lasix he received in the emergency department with marked improvement in his symptoms. Hospitalist services was contacted to admit to the medical surgical unit for further evaluation and management. Review of Systems All systems reviewed & are unremarkable except as noted in HPI and below PFSH All Active Problems (Updated 10/19/24 @ 15:11 by KIE Tracy) Anemia (Chronic) CHF (congestive heart failure) (Chronic) Acute hypercapnic respiratory failure (Acute) Yeast infection of the skin (Acute) Acute respiratory failure with hypoxia and hypercarbia (Acute) Hemopneumothorax on left (Acute) Pain in joint, foot, left (Acute) Corns and callosities (Acute) Cellulitis (Acute) Venous (peripheral) insufficiency (Acute) PAD (peripheral artery disease) (Acute) Onychomycosis (Acute) Neuropathy (Acute) Atrial fibrillation (Chronic) Hearing loss (Acute) with subjective 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 Mononeuritis (Acute) Hyperlipidemia (Acute) Essential (primary) hypertension (Acute) BPH (benign prostatic hyperplasia) (Chronic) ADHD (Acute) ASCVD (arteriosclerotic cardiovascular disease) (Acute) Long-term current use of opiate analgesic (Acute) Tobacco use disorder (Acute) Venous stasis dermatitis (Acute) Peripheral edema (Acute) 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 Frequent falls (Acute) Medical History Viral meningitis Complete rotator cuff tear right Cervical spondylosis Bursitis 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 Exposure to [place] Social History Smoking/Tobacco Use Status: Current every day Tobacco Type: cigarettes Smoking packs per day: 1 Smoking cigarettes per day: 20.0 Years smoked: 50 Smoking pack-years: 50.00 Smoking risk assessment performed?: Yes Alcohol Intake: never Drug use: Never Substance use type: does not use [facility] Do you feel safe at home: Yes Do you feel safe in your relationship?: Yes Meds Allergies and Home Medications Allergies Allergy/AdvReac Type Severity Reaction Status Date / Time fluticasone Allergy Unknown Headache Verified 10/19/24 12:52 gabapentin Allergy Unknown Psychosis Verified 10/19/24 12:52 pregabalin Allergy Unknown Psychosis Verified 10/19/24 12:52 doxycycline AdvReac Intermediate vomiting Verified 10/19/24 12:52 morphine AdvReac Unknown Psychosis Verified 10/19/24 12:52 Home Medications ?Medication ?Instructions ?Recorded ?Confirmed ?Type trazodone 100 mg tablet 50 mg PO HS 08/09/13 10/19/24 History atorvastatin 40 mg tablet 40 mg PO .COMPLEX 02/06/23 10/19/24 History multivitamin 1 tab PO DAILY 02/06/23 10/19/24 History naloxone 4 mg/actuation nasal spray 4 mg intranasal Q3M PRN 02/06/23 10/19/24 History omeprazole 20 mg capsule,delayed 20 mg PO BID 02/06/23 10/19/24 History release finasteride 5 mg tablet 5 mg PO HS 06/03/24 10/19/24 History oxycodone 5 mg capsule 5 mg PO TID 06/03/24 10/19/24 History ipratropium 20 mcg-albuterol 100 1 puff inhalation Q6H PRN 08/07/24 10/19/24 History mcg/actuation mist for inhalation (Combivent Respimat) nitroglycerin 0.4 mg sublingual 0.4 mg sublingual Q5-15M PRN 08/07/24 10/19/24 History tablet risperidone 1 mg tablet (Risperdal) 1 mg PO BID 10/19/24 10/19/24 History venlafaxine 75 mg tablet 75 mg PO DAILY 10/19/24 10/19/24 History Exam Const General: cooperative and no acute distress Nutritional Appearance: average body habitus Orientation: alert, awake and oriented x3 HENMT Head: normal to inspection, normocephalic and atraumatic Mouth: oral mucosae normal Chest Chest: normal inspection of the chest Resp Effort & Inspection: normal respiratory effort Auscultation: diminished lung sounds and rhonchi Cardio Rate: regular rate Rhythm: regular rhythm GI Inspection: normal to inspection Skin Rashes: rashes noted Neuro General: patient alert, patient awake and patient oriented x3 Extrem Right lower extremity: edema Left lower extremity: edema Results Labs 10/20/24 06:15 10/20/24 06:15 Labs: Laboratory Results - last 24 hr 10/19/24 10/19/24 10/19/24 12:50 12:58 14:00 WBC 7.26 RBC 2.98 L Hgb 7.9 L Hct 27.8 L MCV 93 MCH 26.5 L MCHC 28.4 L RDW 16.5 H Plt Count 203 MPV 9.0 Immature Gran % 0.6 Neutrophils % 78.4 Lymphocytes % 12.0 Monocytes % 8.3 Eosinophils % 0.3 Basophils % 0.4 Nucleated RBC % 0.0 Absolute Neutrophils 5.70 Absolute Lymphocytes 0.87 L Absolute Monocytes 0.60 Absolute Eosinophils 0.02 Absolute Basophils 0.03 RBC Morphology See Below Hypochromasia 2+ VBG pH 7.29 L VBG pCO2 64 H* VBG pO2 53 VBG HCO3 30 H VBG Total CO2 30 H VBG O2 Saturation 82 VBG Base Excess 4 H VBG Lactate 0.5 Sodium 140 Potassium 3.7 Chloride 103 Carbon Dioxide 33.3 H Anion Gap 3.7 BUN 16 Creatinine 0.8 Est GFR (CKD-EPI 2020) 91.15 Glucose 88 Calcium 8.5 Total Bilirubin 0.6 AST 17 ALT 10 L Alkaline Phosphatase 93 Troponin I 10 7 NT-Pro-B Natriuret Pep 5440 H Total Protein 6.7 Albumin 2.0 L ABO/Rh A Negative Antibody Screen NEGATIVE Last Vital Signs Temp 36.6 C 10/19/24 12:36 Pulse 76 10/19/24 14:43 Resp 22 10/19/24 14:43 BP 115/65 10/19/24 12:36 Pulse Ox 97 10/19/24 14:43 Time Spent Time spent with Patient: 55-74 minutes Time was spent: preparing to see the patient(eg.review tests), obtaining and/or reviewing separately otained hiistory, ordering medications,tests, procedures, referring, communicating with other health career services representative, indepentently interpreting results and counseling the patient
[2024-10-19] MEDS: methylPREDNISolone SUCC 125 MG VIAL 80 MG IVP (14:50)
[2024-10-19 16:20] LABS: BE (Venous) 9 mmol/L (-2-3); HCO3 (Venous) 34 mmol/L (23-28); O2 Sat (Venous) 47 %; TCO2 (Venous) 33 mmol/L (24-29); pCO2 (Venous) 56 mmHg (41-51); pH (Venous) 7.39 (7.31-7.41); pO2 (Venous) 28 mmHg
[2024-10-19 16:28] LABS: Lab Add On Test DONE
[2024-10-19 16:41] LABS: Troponin I 9 ng/L (<or=76)
--- NOTE | 2024-10-19 16:54 | INITIAL_ITS ---
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 He tested positive for covid and was placed on isolation precautions. CM spoke with his Sheryl by phone, as he was unavailable. Bijan moved to the [facility] 3-4 months ago after is care became too much for her. Bijan does not have any children, and no living family other than a nephew. Per Sheryl, he served in the [employer] for 2.5 years and developed PTSD and is 100% [facility] connected. 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) Instrumental Activities of Daily Living (ADLs): Requires support Medications Medication Management: No Issues/Barriers identified Physical Functioning/Mobility Assistive Device: Walker, wheelchair Advance Directives Advance Directives: Do you have an Advance Directive: N 09/05/18 15:47 AD On File at [facility]: N 09/05/18 15:47 Date Asked 10/19/24 10/19/24 16:11 AD Date Reviewed COLST On File at [facility] Yes 10/19/24 16:14 COLST Date Scanned Code Status Resuscitation Status DNR/DNI Portal Pt does not currently have a portal and education provided: Yes Insurance Coverage/Financial Issues [place] [id number] Financial Issues: [place] Care Team Visit Care Team Role Provider Type Brijesh Elliott Primary Care Provider NON-[facility] STAFF PHYSICIAN KEI Tracy Emergency Provider PHYSICIANS CLIENT SERVICE COORDINATOR Markus Rodríguez MD Admit Provider [facility] STAFF PHYSICIAN Attending Provider Discharge Potential Discharge Needs: PCP F/U Appt Anticipated Barriers to Discharge: None Identified Patient/Family Education Needs: Review discharge instructions, discuss Ask Me Three Transportation: Private vehicle Plan: Bijan will discharge back to [facility] when medically ready for discharge. He will follow up with community providers and his discharge plan of care as directed. Bijan will transport via [facility]. CM will follow. Social Determinants of Health Screening Social Determinants of health last assessed in clinic: 10/20/24 Will the Patient Participate in the Screening?: Yes Do you worry about having a steady place to live?: no Problems where you live: no known problems In the past 12 months, have you had to go without electric, gas, oil or water in your home?: no 1. Within the past 12 months, we worried whether our food would run out before we got money to buy more.: Never true 2. Within the past 12 months, the food we bought just didn't last and we didn't have money to get more.: Never true Has lack of transportation kept you from medical appointments or from doing things needed for daily living?: no Has anyone in your life made you feel unsafe or unsupported?: no How hard is it for you to pay for the very basics like food, housing, medical care, and heating? Would you say it is:: Not hard at all Do you want help finding or keeping work or a job?: I do not need or want help If for any reason you need help with day-to-day activities such as bathing, preparing meals, shopping, managing finances, etc., do you get the help you need?: I don?t need any help How often do you feel lonely or isolated from those around you?: Never Do you speak a language other than Kiswahili at home?: No Does the patient want assistance with any of the above?: No PFSH All Active Problems (Updated 10/20/24 @ 10:50 by Brittani Sanz NP) COVID-19 (Acute) Anemia (Chronic) CHF (congestive heart failure) (Chronic) Acute hypercapnic respiratory failure (Acute) Yeast infection of the skin (Acute) Acute respiratory failure with hypoxia and hypercarbia (Acute) Hemopneumothorax on left (Acute) Pain in joint, foot, left (Acute) Corns and callosities (Acute) Cellulitis (Acute) Venous (peripheral) insufficiency (Acute) PAD (peripheral artery disease) (Acute) Onychomycosis (Acute) Neuropathy (Acute) Atrial fibrillation (Chronic) Hearing loss (Acute) with subjective 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 Mononeuritis (Acute) Hyperlipidemia (Acute) Essential (primary) hypertension (Acute) BPH (benign prostatic hyperplasia) (Chronic) ADHD (Acute) ASCVD (arteriosclerotic cardiovascular disease) (Acute) Long-term current use of opiate analgesic (Acute) Tobacco use disorder (Acute) Venous stasis dermatitis (Acute) Peripheral edema (Acute) 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 Frequent falls (Acute) Medical History Viral meningitis Complete rotator cuff tear right Cervical spondylosis Bursitis 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
[2024-10-19] MEDS: cefTRIAXone 1 GM/50 ML BAG IVPB (17:26)
[2024-10-19 17:27] LABS: Procalcitonin < 0.10 ng/mL
--- NOTE | 2024-10-19 18:09 | W.PC.ACHO ---
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 Exposure to Agent [place] Most Recent Vital Signs Temperature 36.8 C 10/19/24 17:45 Temperature Source Tympanic 10/19/24 12:36 Pulse 89 10/19/24 17:37 Pulse 86 10/19/24 17:30 Respiratory Rate 20 10/19/24 17:38 Respiratory Effort Non-Labored 10/19/24 17:17 Respiratory Depth Shallow 10/19/24 17:17 Respiratory Pattern Normal 10/19/24 17:17 Blood Pressure 112/65 10/19/24 17:01 Blood Pressure Mean 78 10/19/24 17:01 Pulse Oximetry 98 10/19/24 17:37 Oxygen Delivery Method Nasal Cannula 10/19/24 17:17 Oxygen Flow Rate 2 10/19/24 17:17 Fraction of Inspired Oxygen (FIO2) 21 10/19/24 14:43 Pain Level 0 10/19/24 17:44 Allergies fluticasone Allergy (Unknown, Verified 10/19/24 12:52) Headache gabapentin Allergy (Unknown, Verified 10/19/24 12:52) Psychosis pregabalin Allergy (Unknown, Verified 10/19/24 12:52) Psychosis doxycycline Adverse Reaction (Intermediate, Verified 10/19/24 12:52) vomiting morphine Adverse Reaction (Unknown, Verified 10/19/24 12:52) Psychosis Active Medications Generic Name Dose Route Start Last Admin Trade Name Freq PRN Reason Stop Dose Admin Ceftriaxone Sodium/Dextrose 1 gm in 50 mls @ 100 mls/hr 10/19/24 16:00 10/19/24 17:26 Rocephin IVPB 100 mls/hr Q24H SHIRA Administration IV IV Catheter Type [Left Saline Lock Antecubital] IV Catheter Gauge [Left 18 Antecubital] Diet Orders Category Date Time Status Low Sodium [DIET] Nutrition 10/19/24 Dinner Active Diagnostics 10/19/24 10/19/24 10/19/24 Range/Units 16:10 14:56 14:00 WBC (4.4-10.8) 10^3/uL RBC (4.36-5.78) 10^6/uL Hgb (13.5-17.5) g/dL Hct (40.0-50.0) % MCV (80-95) fL MCH (27.0-33.0) pg MCHC (32.0-36.0) % RDW (11.8-14.1) % Plt Count (130-400) 10^3/uL MPV (8.0-11.0) fL Immature Gran % % Neutrophils % % Lymphocytes % % Monocytes % % Eosinophils % % Basophils % % Nucleated RBC % (0.0-0.3) % Absolute Neutrophils (1.2-6.7) 10^3/uL Absolute Lymphocytes (1.2-3.4) 10^3/uL Absolute Monocytes (0.1-0.8) 10^3/uL Absolute Eosinophils (0.0-0.7) 10^3/uL Absolute Basophils (0.0-0.2) 10^3/uL RBC Morphology Hypochromasia VBG pH 7.39 7.29 L (7.31-7.41) VBG pCO2 56 H 64 H* (41-51) mmHg VBG pO2 28 53 mmHg VBG HCO3 34 H 30 H (23-28) mmol/L VBG Total CO2 33 H 30 H (24-29) mmol/L VBG O2 Saturation 47 82 % VBG Base Excess 9 H 4 H (-2-3) mmol/L VBG Lactate 0.5 (<or=2.0) mmol/L Sodium (136-145) mmol/L Potassium (3.5-5.1) mmol/L Chloride (98-107) mmol/L Carbon Dioxide (21.0-32.0) mmol/L Anion Gap (3-11) mmol/L BUN (7-18) mg/dL Creatinine (0.70-1.30) mg/dL Est GFR (CKD-EPI 2020) (mL/min/1.73m2) Glucose (74-106) mg/dL Calcium (8.5-10.1) mg/dL Total Bilirubin (0.2-1.0) mg/dL AST (15-37) U/L ALT (16-63) U/L Alkaline Phosphatase (46-116) U/L Troponin I 9 7 (<or=76) ng/L NT-Pro-B Natriuret Pep (<300) pg/mL Total Protein (6.4-8.2) g/dL Albumin (3.4-5.0) g/dL Procalcitonin < 0.10 ng/mL COVID-19 Source Pending SARS-CoV-2 (PCR) Pending Influenza Type A (PCR) Pending Influenza Type B (PCR) Pending RSV (PCR) Pending Add-On Test Request DONE ABO/Rh Antibody Screen 10/19/24 10/19/24 Range/Units 12:58 12:50 WBC 7.26 (4.4-10.8) 10^3/uL RBC 2.98 L (4.36-5.78) 10^6/uL Hgb 7.9 L (13.5-17.5) g/dL Hct 27.8 L (40.0-50.0) % MCV 93 (80-95) fL MCH 26.5 L (27.0-33.0) pg MCHC 28.4 L (32.0-36.0) % RDW 16.5 H (11.8-14.1) % Plt Count 203 (130-400) 10^3/uL MPV 9.0 (8.0-11.0) fL Immature Gran % 0.6 % Neutrophils % 78.4 % Lymphocytes % 12.0 % Monocytes % 8.3 % Eosinophils % 0.3 % Basophils % 0.4 % Nucleated RBC % 0.0 (0.0-0.3) % Absolute Neutrophils 5.70 (1.2-6.7) 10^3/uL Absolute Lymphocytes 0.87 L (1.2-3.4) 10^3/uL Absolute Monocytes 0.60 (0.1-0.8) 10^3/uL Absolute Eosinophils 0.02 (0.0-0.7) 10^3/uL Absolute Basophils 0.03 (0.0-0.2) 10^3/uL RBC Morphology See Below Hypochromasia 2+ VBG pH (7.31-7.41) VBG pCO2 (41-51) mmHg VBG pO2 mmHg VBG HCO3 (23-28) mmol/L VBG Total CO2 (24-29) mmol/L VBG O2 Saturation % VBG Base Excess (-2-3) mmol/L VBG Lactate (<or=2.0) mmol/L Sodium 140 (136-145) mmol/L Potassium 3.7 (3.5-5.1) mmol/L Chloride 103 (98-107) mmol/L Carbon Dioxide 33.3 H (21.0-32.0) mmol/L Anion Gap 3.7 (3-11) mmol/L BUN 16 (7-18) mg/dL Creatinine 0.8 (0.70-1.30) mg/dL Est GFR (CKD-EPI 2020) 91.15 (mL/min/1.73m2) Glucose 88 (74-106) mg/dL Calcium 8.5 (8.5-10.1) mg/dL Total Bilirubin 0.6 (0.2-1.0) mg/dL AST 17 (15-37) U/L ALT 10 L (16-63) U/L Alkaline Phosphatase 93 (46-116) U/L Troponin I 10 (<or=76) ng/L NT-Pro-B Natriuret Pep 5440 H (<300) pg/mL Total Protein 6.7 (6.4-8.2) g/dL Albumin 2.0 L (3.4-5.0) g/dL Procalcitonin ng/mL COVID-19 Source SARS-CoV-2 (PCR) Influenza Type A (PCR) Influenza Type B (PCR) RSV (PCR) Add-On Test Request ABO/Rh A Negative Antibody Screen NEGATIVE [id number] Documentation Fingerstick Glucose Start: 10/19/24 12:47 Freq: Status: Active Protocol: Activity Type Activity Date Activity User E-sign Co-sign Detail Recorded Client Recorded Date Recorded By Document 10/19/24 12:46 BKG DAEMON(9) [id number] 10/19/24 12:47 BKG DAEMON(10) Intake and Output - 24 Hour Total 10/19/24 12:15 thru 10/19/24 17:17 Intake Total 60 Balance 60 Weight 80.9 kg Intake: IV 60 Other: Urine Color Pale Yellow Urine Appearance Clear Urine Odor None Falls Risk Assessment History of Falls Previous History 10/19/24 17:17 Contributing Factors Confusion,Impairments 10/19/24 17:17 Ambulatory Aids Uses ambulatory device + 10/19/24 17:17 Tubes/Lines With any additional score 10/19/24 17:17 Gait Evaluation W/any additional score 10/19/24 17:17 Cognition Cognitive impairment 10/19/24 17:17 Fall Total Score 106 10/19/24 17:17 Level of Risk Maximum Risk 10/19/24 17:17 Problems (Last Reviewed 03/23/24 @ 21:49 by Carmella El NP) CHF (congestive heart failure) (Chronic) Yeast infection of the skin (Acute) Acute respiratory failure with hypoxia and hypercarbia (Acute) Atrial fibrillation (Chronic) BPH (benign prostatic hyperplasia) (Chronic) Chronic low back pain (Chronic) v v v v v v v v v Sending and/or Receiving Nurses: Please use comment section below to note any information pertinent to the patient hand-off not included above. Information / Comments: Report received from: wilfrid at 1730
[2024-10-19] MEDS: risperiDONE 1 MG TAB PO (20:04)
[2024-10-19] MEDS: Atorvastatin 40 MG TAB PO (20:04)
[2024-10-19] MEDS: Finasteride 5 MG TAB PO (20:04)
[2024-10-19] MEDS: guaiFENesin 600 MG TABCR PO (20:05)
[2024-10-19] MEDS: Lidocaine 2% Jelly 11 ML SYR UR (20:05)
[2024-10-19] MEDS: Omeprazole 20 MG CAPCR PO (20:05)
[2024-10-19] MEDS: Miconazole 2% Topical Powder 85 GM BTL TP (20:05)
[2024-10-19] MEDS: traZODone 50 MG TAB PO (20:05)
[2024-10-20 01:52] VITALS: PULSE 85; RESP 16; RESP 9; O2SAT 90
[2024-10-20] MEDS: Albuterol/Ipratropium 3 ML UPD VIAL UPD (01:52)
[2024-10-20 01:57] VITALS: PULSE 82
[2024-10-20 04:49] LABS: Bilirubin Negative (Negative); Blood Negative (Negative); Clarity Clear (Clear); Glucose Negative (Negative); Ketones Negative (Negative); Leukocyte Esterase Negative (Negative); Nitrite Negative (Negative); Urobilinogen 0.2 mg/dL (Up to 0.2)
[2024-10-20 06:25] LABS: Abs Immature Grans 0.04 10^3/uL (0.0-0.06); Absolute Basophil Count 0.01 10^3/uL (0.0-0.2); Absolute Lymphocyte Count 0.87 10^3/uL (1.2-3.4); Absolute Monocyte Count 0.48 10^3/uL (0.1-0.8); Absolute Neutrophil Count 5.76 10^3/uL (1.2-6.7); Basophils % 0.1 %; HCT 27.7 % (40.0-50.0); Immature Grans % 0.6 %; Lymphocytes % 12.2 %; MCH 26.4 pg (27.0-33.0); MCHC 28.9 % (32.0-36.0); MCV 91 fL (80-95); MPV 9.7 fL (8.0-11.0); Monocytes % 6.7 %; Neutrophils % 80.4 %; Platelet Count 222 10^3/uL (130-400); RBC 3.03 10^6/uL (4.36-5.78); RDW 16.3 % (11.8-14.1); RDW-SD 54.6 fL; WBC 7.16 10^3/uL (4.4-10.8)
[2024-10-20 06:36] LABS: Anion Gap 5.8 mmol/L (3-11); BUN 19 mg/dL (7-18); CO2 33.2 mmol/L (21.0-32.0); Calcium 8.1 mg/dL (8.5-10.1); Chloride 98 mmol/L (98-107); Estimated GFR 77.52 (mL/min/1.73m2); Glucose 225 mg/dL (74-106); Potassium 3.3 mmol/L (3.5-5.1); Sodium 137 mmol/L (136-145)
[2024-10-20 07:31] LABS: Influenza A PCR Negative (Negative); Influenza B PCR Negative (Negative); RSV PCR Negative (Negative)
[2024-10-20 07:35] LABS: COVID-19 PCR Positive (Negative); Source Nasopharynx
--- NOTE | 2024-10-20 08:00 | DI.RAD_ITS ---
Exam(s) XR CHEST 2V PA LATERAL EXAM: XR CHEST 2V PA LATERAL CLINICAL HISTORY: hypoxic resp failure TECHNIQUE: 2D digital imaging was performed. Two views. COMPARISON: CR XR CHEST 1V IN DI DEPT from 08/07/[address] CHEST/ABD/PEL W from 10/19/2024 CR XR PORTABLE CHEST AP from 10/19/2024 FINDINGS: HEART: Mildly enlarged. Mitral annular calcification. Aorta: Not dilated. Calcification at arch. PULMONARY VASCULATURE: Mildly prominent. MEDIASTINUM: Unremarkable. LUNGS: Mild improvement in interstitial changes. Underlying emphysematous changes. Patchy densities are again noted at both lung bases, representing infiltrates versus atelectasis or edema. PLEURAL SPACE: Small bilateral pleural effusions. No pneumothorax. BONE:Multiple bilateral old rib fractures. Hardware in left clavicle and 2 left lower ribs. SOFT TISSUES: Unremarkable. IMPRESSION: Small bilateral pleural effusions. Mild improvement in interstitial markings. Bibasilar infiltrates persist. DATA REPOSITORY: RADIATION DOSE DELIVERED:
[2024-10-20] MEDS: Omeprazole 20 MG CAPCR PO ×2 (08:20→21:57)
[2024-10-20] MEDS: guaiFENesin 600 MG TABCR PO ×2 (08:21→21:58)
[2024-10-20] MEDS: Miconazole 2% Topical Powder 85 GM BTL TP ×2 (08:21→21:58)
[2024-10-20] MEDS: Multivitamin TAB 1 TAB PO (08:21)
[2024-10-20] MEDS: risperiDONE 1 MG TAB PO ×2 (08:21→21:58)
[2024-10-20] MEDS: Venlafaxine 75 MG TAB PO (08:21)
--- NOTE | 2024-10-20 09:04 | DI.VRAD_ITS ---
PROCEDURE INFORMATION: Exam: XR Chest Exam date and time: 10/20/2024 8:54 AM Age: 78 years old Clinical indication: Other: Hypoxic resp failure TECHNIQUE: Imaging protocol: Radiologic exam of the chest. Views: 2 views. COMPARISON: No relevant prior studies are available for comparison. FINDINGS: Lungs: Mild pulmonary vascular congestion. Ill-defined bibasilar opacities. Pleural spaces: Small bilateral pleural effusions. Heart/Mediastinum: No cardiomegaly. Bones/joints: No acute abnormality. IMPRESSION: 1. Pleural effusions. 2. Ill-defined bibasilar opacities. Consider atelectasis, pneumonia. Follow-up as clinically warranted. Dictated and Authenticated by: Li Bhakta MD. Orderin Yvon Peter MD
[2024-10-20 09:27] VITALS: BP 97/69; PULSE 78; RESP 16; TEMP 36.1; O2SAT 96
--- NOTE | 2024-10-20 10:44 | W.PM.PROGNOT ---
Date of Service Date of service: 10/20/24 Time of Service: 10:44 Assessment and Plan Assessment and plan (1) Acute respiratory failure with hypoxia and hypercarbia: Status: Acute Assessment and plan: did not meet criteria for sepsis Has not had fever, elevated white count, or elevated lactic acid. procalcitonin negative resp viral panel positive for covid added remdesivir and dexamethasone also with lasix discontinued, component of fluid overload continue diuresis follow labs scheduled combivent and albuterol MDI prn incentive spirometry (2) COVID-19: Status: Acute Assessment and plan: remdesivir/dexamethasone (3) CHF (congestive heart failure): Status: Chronic Assessment and plan: Patient previously on Lasix which had been discontinued Update echocardiogram when available, will have assistant secretary try to obtain copy of previous echocardiogram continue diuresis Monitor intake and output closely, daily weights Follow labs to monitor kidney function and electrolytes (4) Atrial fibrillation: Status: Chronic Assessment and plan: Rate is controlled no longer anticoagulated d/t history of frequent falls with significant injuries including hemopneumothorax (5) BPH (benign prostatic hyperplasia): Status: Chronic Assessment and plan: Monitor for signs of urinary retention continue finasteride (6) Yeast infection of the skin: Status: Acute Assessment and plan: Significant. Groin and periarea Will use IV fluconazole in addition to topical antifungal cream may have component of cellulitis, will add rocephin (7) Chronic low back pain: Status: Chronic Assessment and plan: continue home medications discussed with DR Rodríguez Subjective Subjective Interval history since last seen: Still requiring oxygen at 1 L nasal cannula no new complaints. Did have a large formed foul-smelling bowel movement. No abdominal pain nausea or vomiting is eating and drinking voiding without difficulty Exam Const General: cooperative and no acute distress Nutritional Appearance: average body habitus Orientation: alert, awake and oriented x3 HENMT Head: normal to inspection, normocephalic and atraumatic Mouth: oral mucosae normal Chest Chest: normal inspection of the chest Resp Effort & Inspection: normal respiratory effort Auscultation: diminished lung sounds and rhonchi Cardio Rate: regular rate Rhythm: regular rhythm GI Inspection: normal to inspection Skin Rashes: rashes noted Neuro General: patient alert, patient awake and patient oriented x3 Extrem Right lower extremity: edema Left lower extremity: edema Objective Last Vital Signs Temp 36.1 C L 10/20/24 09:27 Pulse 78 10/20/24 09:27 Resp 16 10/20/24 09:27 BP 97/69 L 10/20/24 09:27 Pulse Ox 96 10/20/24 09:27 Laboratory Results - last 24 hr 10/19/24 10/19/24 10/19/24 12:50 12:58 14:00 WBC 7.26 RBC 2.98 L Hgb 7.9 L Hct 27.8 L MCV 93 MCH 26.5 L MCHC 28.4 L RDW 16.5 H Plt Count 203 MPV 9.0 Immature Gran % 0.6 Neutrophils % 78.4 Lymphocytes % 12.0 Monocytes % 8.3 Eosinophils % 0.3 Basophils % 0.4 Nucleated RBC % 0.0 Absolute Neutrophils 5.70 Absolute Lymphocytes 0.87 L Absolute Monocytes 0.60 Absolute Eosinophils 0.02 Absolute Basophils 0.03 RBC Morphology See Below Hypochromasia 2+ VBG pH 7.29 L VBG pCO2 64 H* VBG pO2 53 VBG HCO3 30 H VBG Total CO2 30 H VBG O2 Saturation 82 VBG Base Excess 4 H VBG Lactate 0.5 Sodium 140 Potassium 3.7 Chloride 103 Carbon Dioxide 33.3 H Anion Gap 3.7 BUN 16 Creatinine 0.8 Est GFR (CKD-EPI 2020) 91.15 Glucose 88 Calcium 8.5 Total Bilirubin 0.6 AST 17 ALT 10 L Alkaline Phosphatase 93 Troponin I 10 7 NT-Pro-B Natriuret Pep 5440 H Total Protein 6.7 Albumin 2.0 L Procalcitonin Urine Color Urine Clarity Urine pH Ur Specific [place] Urine Protein Urine Ketones Urine Blood Urine Nitrite Urine Bilirubin Urine Urobilinogen Ur Leukocyte Esterase Urine Glucose Stl C.difficile Tox PCR COVID-19 Source SARS-CoV-2 (PCR) Influenza Type A (PCR) Influenza Type B (PCR) RSV (PCR) Add-On Test Request ABO/Rh A Negative Antibody Screen NEGATIVE 10/19/24 10/20/24 10/20/24 16:10 04:40 06:15 WBC 7.16 RBC 3.03 L Hgb 8.0 L Hct 27.7 L MCV 91 MCH 26.4 L MCHC 28.9 L RDW 16.3 H Plt Count 222 MPV 9.7 Immature Gran % 0.6 Neutrophils % 80.4 Lymphocytes % 12.2 Monocytes % 6.7 Eosinophils % 0.0 Basophils % 0.1 Nucleated RBC % 0.0 Absolute Neutrophils 5.76 Absolute Lymphocytes 0.87 L Absolute Monocytes 0.48 Absolute Eosinophils 0.00 Absolute Basophils 0.01 RBC Morphology Hypochromasia VBG pH 7.39 VBG pCO2 56 H VBG pO2 28 VBG HCO3 34 H VBG Total CO2 33 H VBG O2 Saturation 47 VBG Base Excess 9 H VBG Lactate Sodium 137 Potassium 3.3 L Chloride 98 Carbon Dioxide 33.2 H Anion Gap 5.8 BUN 19 H Creatinine 1.0 Est GFR (CKD-EPI 2020) 77.52 Glucose 225 H Calcium 8.1 L Total Bilirubin AST ALT Alkaline Phosphatase Troponin I 9 NT-Pro-B Natriuret Pep Total Protein Albumin Procalcitonin < 0.10 Urine Color Yellow Urine Clarity Clear Urine pH 6.0 Ur Specific [place] 1.020 Urine Protein Negative Urine Ketones Negative Urine Blood Negative Urine Nitrite Negative Urine Bilirubin Negative Urine Urobilinogen 0.2 Ur Leukocyte Esterase Negative Urine Glucose Negative Stl C.difficile Tox PCR COVID-19 Source SARS-CoV-2 (PCR) Influenza Type A (PCR) Influenza Type B (PCR) RSV (PCR) Add-On Test Request DONE ABO/Rh Antibody Screen 10/20/24 10/20/24 06:38 08:45 WBC RBC Hgb Hct MCV MCH MCHC RDW Plt Count MPV Immature Gran % Neutrophils % Lymphocytes % Monocytes % Eosinophils % Basophils % Nucleated RBC % Absolute Neutrophils Absolute Lymphocytes Absolute Monocytes Absolute Eosinophils Absolute Basophils RBC Morphology Hypochromasia VBG pH VBG pCO2 VBG pO2 VBG HCO3 VBG Total CO2 VBG O2 Saturation VBG Base Excess VBG Lactate Sodium Potassium Chloride Carbon Dioxide Anion Gap BUN Creatinine Est GFR (CKD-EPI 2020) Glucose Calcium Total Bilirubin AST ALT Alkaline Phosphatase Troponin I NT-Pro-B Natriuret Pep Total Protein Albumin Procalcitonin Urine Color Urine Clarity Urine pH Ur Specific [place] Urine Protein Urine Ketones Urine Blood Urine Nitrite Urine Bilirubin Urine Urobilinogen Ur Leukocyte Esterase Urine Glucose Stl C.difficile Tox PCR TNP COVID-19 Source Nasopharynx SARS-CoV-2 (PCR) Positive A Influenza Type A (PCR) Negative Influenza Type B (PCR) Negative RSV (PCR) Negative Add-On Test Request ABO/Rh Antibody Screen PAWSS Have you Been Recently Intoxicated or Drunk Within the Last 30 days?: No Have you Ever Experienced Previous Episodes of Alcohol Withdrawal?: No Have you ever Experienced Withdrawal Seizures?: No Have you ever Experienced Delirium Tremens(DT)s?: No Have you ever undergone Alcohol Rehabilitation Treatment (i.e, inpt ot outpatient treatment programs)?: No Have you ever Experienced Blackouts?: No Have you ever Combined Alcohol with other Downers within the last 90 days?: No Have you ever Combined Alcohol with any other Substance of Abuse during the last 90 days?: No Positive Blood Alcohol level on Presentation? [PCS.BAL]: No Evidence of Increased Autonomic Activity (i.e. HR>120, tremor, sweating, agitation, nausea)?: No Result: 0 Time Spent with Patient Time Spent with Patient: 35-49 minutes Time was spent: preparing to see the patient(eg.review tests), obtaining and/or reviewing separately otained hiistory, ordering medications,tests, procedures, referring, communicating with other health childcare center administrator, indepentently interpreting results and counseling the patient
[2024-10-20] MEDS: Dexamethasone 4 MG TAB 6 MG PO (11:07)
[2024-10-20] MEDS: REMDESIVIR 200 MG in Normal Saline 250 ML 250 MG IVPB (11:08)
[2024-10-20 11:18] LABS: Lab Add On Test DONE
[2024-10-20 11:31] LABS: Magnesium 1.7 mg/dL (1.8-2.4)
[2024-10-20] MEDS: Furosemide 20 MG/2 ML VIAL IVP (12:21)
[2024-10-20] MEDS: POTASSIUM CHLORIDE 10 MEQ/100 ML BAG 100 MEQ IV_INF (12:29)
[2024-10-20] MEDS: Potassium Chloride 20 MEQ TABCR PO ×2 (13:28→17:05)
[2024-10-20] MEDS: MAGNESIUM SULFATE 1 GM/100 ML BAG IV_INF (13:59)
[2024-10-20 14:05] LABS: Hemoglobin A1C 6.2 % (<5.7)
[2024-10-20 15:28] LABS: Lab Add On Test DONE
[2024-10-20] MEDS: Ipratropium/Albuterol 4 GM 120 PUFF INH IH ×2 (16:46→20:06)
[2024-10-20 16:47] VITALS: O2SAT 92
[2024-10-20] MEDS: Metoprolol 12.5 MG TAB 25 MG PO ×2 (17:03→21:56)
[2024-10-20] MEDS: cefTRIAXone 1 GM/50 ML BAG IVPB (17:03)
[2024-10-20 20:11] VITALS: O2SAT 93
[2024-10-20 20:27] VITALS: BP 126/76; PULSE 95; TEMP 36.5; O2SAT 93
[2024-10-20] MEDS: traZODone 50 MG TAB PO (21:56)
[2024-10-20] MEDS: Atorvastatin 40 MG TAB PO (21:57)
[2024-10-20] MEDS: Finasteride 5 MG TAB PO (21:58)
[2024-10-20] MEDS: Normal Saline Flush 10 ML SYR IVP (21:59)
[2024-10-20] MEDS: Acetaminophen 325 MG TAB 650 MG PO (23:25)
[2024-10-21] MEDS: Ketorolac 15 MG/ML VIAL IVP (01:03)
[2024-10-21] MEDS: Normal Saline Flush 10 ML SYR IVP ×3 (01:04→10:49)
[2024-10-21] MEDS: Metoprolol 12.5 MG TAB 25 MG PO ×2 (04:05→10:50)
[2024-10-21 04:06] VITALS: BP 140/92; PULSE 78; RESP 12; TEMP 36.2; O2SAT 95
[2024-10-21 06:43] LABS: Abs Immature Grans 0.02 10^3/uL (0.0-0.06); Absolute Basophil Count 0.01 10^3/uL (0.0-0.2); Absolute Lymphocyte Count 1.36 10^3/uL (1.2-3.4); Absolute Monocyte Count 0.61 10^3/uL (0.1-0.8); Absolute Neutrophil Count 6.18 10^3/uL (1.2-6.7); Basophils % 0.1 %; HCT 27.5 % (40.0-50.0); Immature Grans % 0.2 %; Lymphocytes % 16.6 %; MCH 26.2 pg (27.0-33.0); MCHC 29.1 % (32.0-36.0); MCV 90 fL (80-95); MPV 9.6 fL (8.0-11.0); Monocytes % 7.5 %; Neutrophils % 75.6 %; Platelet Count 223 10^3/uL (130-400); RBC 3.05 10^6/uL (4.36-5.78); RDW 16.4 % (11.8-14.1); WBC 8.18 10^3/uL (4.4-10.8)
[2024-10-21 06:52] LABS: Anion Gap 0.9 mmol/L (3-11); BUN 26 mg/dL (7-18); CO2 34.1 mmol/L (21.0-32.0); Calcium 8.4 mg/dL (8.5-10.1); Chloride 100 mmol/L (98-107); Estimated GFR 77.52 (mL/min/1.73m2); Glucose 147 mg/dL (74-106); Potassium 3.8 mmol/L (3.5-5.1); Sodium 135 mmol/L (136-145)
[2024-10-21 07:58] VITALS: BP 134/67; PULSE 75; RESP 18; TEMP 36.7; O2SAT 95
[2024-10-21] MEDS: Dexamethasone 4 MG TAB 6 MG PO (08:13)
[2024-10-21] MEDS: Multivitamin w/Minerals TAB 1 TAB PO (08:13)
[2024-10-21] MEDS: Multivitamin TAB 1 TAB PO (08:13)
[2024-10-21] MEDS: Omeprazole 20 MG CAPCR PO (08:13)
[2024-10-21] MEDS: guaiFENesin 600 MG TABCR PO (08:14)
[2024-10-21] MEDS: Potassium Chloride 20 MEQ TABCR PO ×2 (08:14→11:52)
[2024-10-21] MEDS: Venlafaxine 75 MG TAB PO (08:14)
[2024-10-21] MEDS: Cholecalciferol (Vitamin D3) 1,000 UNIT TAB 1000 UNITS PO (08:14)
[2024-10-21] MEDS: risperiDONE 1 MG TAB PO (08:14)
[2024-10-21] MEDS: Miconazole 2% Topical Powder 85 GM BTL TP (08:15)
[2024-10-21] MEDS: Enoxaparin 40 MG/0.4 ML SYR SC (08:15)
[2024-10-21] MEDS: Furosemide 20 MG/2 ML VIAL IVP (08:16)
[2024-10-21] MEDS: Ipratropium/Albuterol 4 GM 120 PUFF INH IH ×2 (08:42→12:25)
[2024-10-21] MEDS: REMDESIVIR 100 MG in Normal Saline 250 ML 250 MG IVPB (10:50)
--- NOTE | 2024-10-21 11:13 | PDOC.CMDIS ---
Date of service: 10/21/24 Time of Service: 11:13 LACE Index Scoring Tool Questions: Length of Stay (in days): 2 Was the patient admitted via the E.D.?: Yes E.D. Visits: 3 Answers: Total Score: 8 Risk of Readmission: Low Risk Care Management Discharge Plan Reason for Hospitalization: Covid Discharge Plan: Bijan is being discharged back to [facility] for continued care. Pt will follow up with facility providers and discharge plan of care as directed. He will transport via [facility] W/C van. Patient/Family Education Needs: Discuss discharge instructions and ask me three. Services Needed at Discharge: Transportation ([facility] w/c van, coordinated by CM) SDOH Health Related Social Needs: No Data to Display
--- NOTE | 2024-10-21 12:01 | W.PM.DS.N ---
Date of service: 10/21/24 Time of Service: 12:01 DS: Diagnosis Discharge Diagnosis (1) Acute respiratory failure with hypoxia and hypercarbia: Status: Acute (2) COVID-19: Status: Acute (3) CHF (congestive heart failure): Status: Chronic (4) Atrial fibrillation: Status: Chronic (5) BPH (benign prostatic hyperplasia): Status: Chronic (6) Yeast infection of the skin: Status: Acute (7) Chronic low back pain: Status: Chronic Discharge Plan Disposition Patient Disposition: Long Term Facility(SNF) Condition: Stable Condition: Stable Discharge Details Reason For Visit: hypoxic resp failure Admit Date/Time: 10/19/24 15:07 Admit Provider: Markus Rodríguez Attending Provider: Markus Rodríguez Primary Care Provider: Brijesh Elliott Hospital Course Hospital Course: This is a 78-year-old male patient past medical history significant for atrial fibrillation, hypertension, BPH, peripheral artery disease, hemopneumothorax on the left who is at [facility] and rehab presented to the emergency department today with complaints of sudden shortness of breath with a fall reported secondary to weakness. His workup in the emergency department did include CAT scans of the head and cervical spine chest abdomen and pelvis he was found to have bilateral pleural effusions with bibasilar atelectasis versus infiltrates versus pulmonary edema per CT he did have no hemothorax or pneumothorax. His white count and lactic acid both normal. CAT scan of the head C-spine and facial bones showed no acute intracranial process no cervical spine or facial fractures. He was found to test positive for Covid 19 and started on steroids and remdesivir. He also received a dose of lasix in the ED. He was noted to have ongoing groin rash. He received 2 days of ceftriaxone to cover for possible pneumonia and possible superimposed cellulitis in groin. he was weaned off oxygen and remained stable on room air. he was eating and drinking at baseline. He is stable to return to rehab and will complete 3 more days of antibiotics to complete his course. He should continue routine covid isolation per guidelines. he should resume usual meds as tolerated. he is being discharged back to [facility] rehab discussed with DR Rodríguez Home Meds and New Rx's Prescriptions: New cefpodoxime 200 mg tablet 200 mg PO BID Qty: 7 0RF Rx Instructions: must administer with a meal/food Continued atorvastatin 40 mg tablet 40 mg PO HS omeprazole 20 mg capsule,delayed release(DR/EC) 20 mg PO DAILY trazodone 100 MG tablet 100 mg PO HS finasteride 5 mg tablet 5 mg PO HS oxycodone 5 mg capsule 5 mg PO Q6H PRN PRN (Reason: severe pain (scale score 7-10)) risperidone [Risperdal] 1 mg tablet 1 mg PO BID venlafaxine 75 mg tablet 75 mg PO DAILY cholecalciferol (vitamin D3) 25 mcg (1,000 unit) capsule 1,000 unit PO DAILY One Daily Complete Tablet 1 tab PO DAILY metoprolol tartrate 25 mg tablet 25 mg PO Q6H polyethylene glycol 3350 [Miralax] 17 gram powder in packet 17 g PO BID PRN PRN sennosides-docusate sodium [Senna-S] 8.6-50 mg tablet 2 tab PO BID Combivent Respimat 20-100 mcg/actuation mist 1 puff inhalation Q6H PRN PRN (Reason: bronchospasm) nitroglycerin 0.4 mg tablet, sublingual 0.4 mg sublingual Q5 MIN PRN X3 PRN Rx Instructions: do not exceed 3 doses per episode No Action lorazepam [Ativan] 0.5 mg tablet 0.5 mg PO Q8H PRN PRN (Reason: agitation) albuterol sulfate 90 mcg/actuation HFA aerosol inhaler 2 puff inhalation Q4H PRN PRN (Reason: wheezing) clindamycin phosphate [Cleocin T] 1 % lotion 1 applic topical BID Patient Comments: apply to perineum topically BID for rash chlorhexidine gluconate [Peridex] 0.12 % mouthwash 15 ml PO BID Patient Comments: 15 mL PO swish and spit BID after oral care Discharge Instructions Instructions: COVID-19 in adults - Discharge instructions Additional Instructions: complete antibiotics as prescribed push fluids to stay well hydrated. covid isolation per protocol Referrals: Brijesh Elliott [Primary Care Provider] - Activity:: Activity as Tolerated Equipment/Supplies:: No Equipment Needed Diet:: As Tolerated Discharge Orders Discharge Orders: Discharge Order (Routine); Ordered 10/21/24 Ordered By: Brittani Sanz DS: Summary Time Spent with Patient providing and/or coordinating discharge services: Greater than 30 minutes Status at Discharge Functional status at discharge: uses cane/walker Overall status at discharge: patient is back to baseline Mental Status: mental status grossly normal Speech and Movement: speech and movement normal Mood: congruent mood Affect: normal affect Quality:SDOH Health Related Social Needs: No Data to Display Exam Const General: cooperative and no acute distress Nutritional Appearance: average body habitus Orientation: alert, awake and oriented x3 HENMT Head: normal to inspection, normocephalic and atraumatic Mouth: oral mucosae normal Chest Chest: normal inspection of the chest Resp Effort & Inspection: normal respiratory effort Auscultation: diminished lung sounds and rhonchi Cardio Rate: regular rate Rhythm: regular rhythm GI Inspection: normal to inspection Skin Rashes: rashes noted Neuro General: patient alert, patient awake and patient oriented x3 Extrem Right lower extremity: edema Left lower extremity: edema Psych Mental Status: mental status grossly normal Speech and Movement: speech and movement normal Mood: congruent mood Affect: normal affect DS: Data Vitals/I&O Vitals and I&O: Vital Signs Temperature 36.7 C 10/21/24 07:58 Temperature Source Temporal Artery Scan 10/21/24 07:58 Pulse 75 10/21/24 07:58 Pulse 86 10/19/24 17:30 Respiratory Rate 18 10/21/24 07:58 Respiratory Effort Non-Labored 10/19/24 17:17 Respiratory Depth Shallow 10/19/24 17:17 Respiratory Pattern Normal 10/19/24 17:17 Blood Pressure 134/67 10/21/24 07:58 Blood Pressure Mean 89 10/21/24 07:58 Pulse Oximetry 95 10/21/24 07:58 Oxygen Delivery Method Room Air 10/21/24 07:58 Oxygen Flow Rate 0 10/21/24 07:58 Fraction of Inspired Oxygen (FIO2) 21 10/19/24 14:43 Pain Level 7 10/21/24 04:06 Intake & Output 10/20/24 10/21/24 10/21/24 23:59 11:59 23:59 Intake Total 618.333 / 1138.333 500 / 500 Output Total 1000 / 1000 Balance 618.333 / 238.333 -500 / -500 Weight 73.085 kg Intake: IV 368.333 / 388.333 Oral 250 / 750 500 / 500 Output: Urine 1000 / 1000 Other: Urine Color Yellow Pale Yellow Urine Appearance Clear Clear Urine Odor Normal Normal Comment Unmeasured amount voided into brief. Unmeasured amount voided into diaper. Condom cath. applied to protect skin Stool Size Smear Stool Characteristics Soft Data Completed and Pending Labs on day of discharge: Labs from last 24 hours 10/21/24 06:20: WBC 8.18, RBC 3.05 L, Hgb 8.0 L, Hct 27.5 L, MCV 90, MCH 26.2 L, MCHC 29.1 L, RDW 16.4 H, Plt Count 223, MPV 9.6, Immature Gran % 0.2, Neutrophils % 75.6, Lymphocytes % 16.6, Monocytes % 7.5, Eosinophils % 0.0, Basophils % 0.1, Nucleated RBC % 0.0, Absolute Neutrophils 6.18, Absolute Lymphocytes 1.36, Absolute Monocytes 0.61, Absolute Eosinophils 0.00, Absolute Basophils 0.01, Sodium 135 L, Potassium 3.8, Chloride 100, Carbon Dioxide 34.1 H, Anion Gap 0.9 L, BUN 26 H, Creatinine 1.0, Est GFR (CKD-EPI 2020) 77.52, Glucose 147 H, Calcium 8.4 L 10/20/24 06:15: Hemoglobin A1c 6.2 H, Add-On Test Request DONE PFSH All Active Problems (Updated 10/20/24 @ 10:50 by Brittani Sanz NP) COVID-19 (Acute) Anemia (Chronic) CHF (congestive heart failure) (Chronic) Acute hypercapnic respiratory failure (Acute) Yeast infection of the skin (Acute) Acute respiratory failure with hypoxia and hypercarbia (Acute) Hemopneumothorax on left (Acute) Pain in joint, foot, left (Acute) Corns and callosities (Acute) Cellulitis (Acute) Venous (peripheral) insufficiency (Acute) PAD (peripheral artery disease) (Acute) Onychomycosis (Acute) Neuropathy (Acute) Atrial fibrillation (Chronic) Hearing loss (Acute) with subjective 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 Mononeuritis (Acute) Hyperlipidemia (Acute) Essential (primary) hypertension (Acute) BPH (benign prostatic hyperplasia) (Chronic) ADHD (Acute) ASCVD (arteriosclerotic cardiovascular disease) (Acute) Long-term current use of opiate analgesic (Acute) Tobacco use disorder (Acute) Venous stasis dermatitis (Acute) Peripheral edema (Acute) 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 Frequent falls (Acute) Medical History Viral meningitis Complete rotator cuff tear right Cervical spondylosis Bursitis 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 Exposure to Agent [place] Social History Smoking/Tobacco Use Status: Current every day Tobacco Type: cigarettes Smoking packs per day: 1 Smoking cigarettes per day: 20.0 Years smoked: 50 Smoking pack-years: 50.00 Smoking risk assessment performed?: Yes Alcohol Intake: never Drug use: Never Substance use type: does not use Housing: group home Do you feel safe at home: Yes Do you feel safe in your relationship?: Yes Time Spent with Patient Time Spent with Patient: 45-69 minutes Time was spent: preparing to see the patient(eg.review tests), obtaining and/or reviewing separately otained hiistory, ordering medications,tests, procedures, referring, communicating with other health critical care specialist, indepentently interpreting results and counseling the patient
--- NOTE | 2024-10-21 13:08 | NUR.NOTE ---
Nursing Note: Report called to CAIT Dougherty, at [facility].
== END 2024-10-21 13:24 | disposition skilled nursing facility (03) ==
LOC: ER 15:11 → ICU 16:11 → MS 17:51
PROVIDERS: Admitting Provider Hospitalist; Emergency Provider Physician Assistant; PCP Internal Medicine; Responsible Provider Nurse Practitioner Acute Care; Visit Provider Hospitalist
DX: U07.1 COVID-19 (principal); I11.0 Hypertensive heart disease with heart failure; J96.01 Acute respiratory failure with hypoxia; J96.02 Acute respiratory failure with hypercapnia; I50.9 Heart failure, unspecified; I48.91 Unspecified atrial fibrillation; N40.0 Benign prostatic hyperplasia without lower urinary tract symptoms; M54.50 Low back pain, unspecified; G89.29 Other chronic pain; B37.2 Candidiasis of skin and nail; I73.9 Peripheral vascular disease, unspecified; W19.XXXA Unspecified fall, initial encounter; R53.1 Weakness; D64.9 Anemia, unspecified; I87.2 Venous insufficiency (chronic) (peripheral); B35.1 Tinea unguium; G62.9 Polyneuropathy, unspecified; E78.5 Hyperlipidemia, unspecified; F90.9 Attention-deficit hyperactivity disorder, unspecified type; Z79.891 Long term (current) use of opiate analgesic; I25.10 Atherosclerotic heart disease of native coronary artery without angina pectoris; F17.210 Nicotine dependence, cigarettes, uncomplicated; R29.6 Repeated falls; G57.00 Lesion of sciatic nerve, unspecified lower limb; Z79.899 Other long term (current) drug therapy
CPT/HCPCS: 00123; 36415; 36416; 74177; 76604; 76705; 76857; 80048; 80053; 82805; 82962; 84145; 86850; 86900; 86901; 87637; 93005; 93308; 94640; 96365; 96366; 96367; 96372; 96375; 96376; 99291; J1650; 70450; 70486; 71045; 71046; 71260; 72125; 81003; 83036; 83605; 83735; 83880; 84484; 85025; 93010; 94664; 94760; 99223; 99233; 99239; G0378; J0248; J0696; J1885; J1938; J2310; J2543; J2919; J3475; J3480; J3490; J7620; J8540

== ENCOUNTER 2024-11-02 14:14 | Inpatient (IN) | payer OTHER, SELFPAY ==
[2024-11-02] VITALS (65 sets, daily range): BP systolic 111–187; BP diastolic 48–122; PULSE 66–113; RESP 8–25; TEMP 36.1–36.9; O2SAT 90–100
--- NOTE | 2024-11-02 14:00 | RT.EKG_ITS ---
APPROVED REPORT Exam: Resting ECG Reason for Exam: hypoxia Patient Location: E HR:97 bpm ECG Measurements Heart Rate 97 AXIS CO [id number] P [id number] QRSd 151 QRS 79 QT 414 T -32 QTc 525 Conclusion Atrial fibrillation...? atrial activity Paired ventricular premature complexes...sequence of 2 V complexes Right bundle branch block...QRSd>120, terminal axis(90,270)
--- NOTE | 2024-11-02 14:45 | DI.RAD_ITS ---
Exam(s) XR CHEST 2V PA LATERAL EXAM: XR CHEST 2V PA LATERAL CLINICAL HISTORY: cough, choking episode with eating TECHNIQUE: 2D digital imaging was performed of the chest. Two images were obtained. AP and lateral views were obtained. COMPARISON: CR,XR XR CHEST 2V PA LATERAL from 10/20/2024 FINDINGS: MEDIASTINUM: Normal. HEART: Mild cardiomegaly. PULMONARY VASCULATURE: Normal. LUNGS: There is a small opacity in the right mid lung. The left lung appears grossly clear. PLEURAL SPACE: There are small bilateral pleural effusions noted. The appears slightly smaller aristides red to the prior examination. BONE:Within normal limits for the patient's age. Internal fixation of old left clavicular and left r ib fractures are noted. OTHER FINDINGS:Normal. IMPRESSION: 1. Opacity seen in the right mid lung. This may represent a developing pneumonia. Follow-up as clin ically appropriate. 2. Persistent small bilateral pleural effusions. 3. Mild cardiomegaly. DATA REPOSITORY: RADIATION DOSE DELIVERED:
--- NOTE | 2024-11-02 15:06 | W.ED.GENAD ---
Discharge Plan Disposition Patient Disposition: Admit to [facility] Condition: Stable Discharge Details Clinical Impression: Aspiration pneumonia, Decubitus ulcer of sacral area, Hypomagnesemia, Hypokalemia Primary Care Provider: Brijesh Elliott ED Provider: Dioni Rojas Home Meds and New Rx's Prescriptions: No Action atorvastatin 40 mg tablet 40 mg PO HS omeprazole 20 mg capsule,delayed release(DR/EC) 20 mg PO DAILY trazodone 100 MG tablet 100 mg PO HS finasteride 5 mg tablet 5 mg PO HS oxycodone 5 mg capsule 5 mg PO Q6H PRN PRN (Reason: severe pain (scale score 7-10)) risperidone [Risperdal] 1 mg tablet 1 mg PO BID venlafaxine 75 mg tablet 75 mg PO DAILY cholecalciferol (vitamin D3) 25 mcg (1,000 unit) capsule 1,000 unit PO DAILY metoprolol tartrate 25 mg tablet 25 mg PO Q6H polyethylene glycol 3350 [Miralax] 17 gram powder in packet 17 g PO BID PRN PRN sennosides-docusate sodium [Senna-S] 8.6-50 mg tablet 2 tab PO BID cefpodoxime 200 mg tablet 200 mg PO BID Qty: 7 0RF Rx Instructions: must administer with a meal/food lorazepam [Ativan] 0.5 mg tablet 0.5 mg PO Q8H PRN PRN (Reason: agitation) albuterol sulfate 90 mcg/actuation HFA aerosol inhaler 2 puff inhalation Q4H PRN PRN (Reason: wheezing) clindamycin phosphate [Cleocin T] 1 % lotion 1 applic topical BID Patient Comments: apply to perineum topically BID for rash chlorhexidine gluconate [Peridex] 0.12 % mouthwash 15 ml PO BID Patient Comments: 15 mL PO swish and spit BID after oral care magnesium hydroxide [Milk of Magnesia] 400 mg/5 mL suspension 30 ml PO DIRECTED PRN Patient Comments: give 30 mL by mouth as needed for no BM X3 days bisacodyl [Dulcolax (bisacodyl)] 10 mg suppository 10 mg TN DIRECTED PRN Patient Comments: insert 1 suppository rectally as needed if no results from milk of magnesia after 24 hours sodium phosphates 19-7 gram/118 mL enema 118 ml TN DIRECTED PRN Patient Comments: insert one application rectally as needed if no results from bisacodyl suppository after 24 hours GlucaGen HypoKit 1 mg recon soln 1 mg IM DIRECTED PRN Patient Comments: Inject 1 mg IM as needed for BG less than 70 and patient is not arousable, conscious or able to swallow. Repeat BG in 15 minutes glucose gel 1 dose PO DIRECTED PRN Patient Comments: 77.4 % gel. Give one dose by mouth as needed for BG les than 70 if patient is arousable, conscious and able to swallow. Repeat BG in 15 min Combivent Respimat 20-100 mcg/actuation mist 1 puff inhalation Q6H PRN PRN (Reason: bronchospasm) nitroglycerin 0.4 mg tablet, sublingual 0.4 mg sublingual Q5 MIN PRN X3 PRN Rx Instructions: do not exceed 3 doses per episode lidocaine [Aspercreme (lidocaine)] 4 % adhesive patch,medicated 1 patch topical DAILY PRN Super Thera Ada M Tablet 1 tab PO DAILY guaifenesin [Mucinex] 1,200 mg tablet extended release 12hr 1,200 mg PO BID acetaminophen 325 mg capsule 975 mg PO .Q8 PRN HPI General Mode of arrival: EMS. Date/Time Provider Initiated Documentation: 11/02/24 14:49. Information obtained by: patient and RN/MD. HPI Narrative: 78-year-old male with multiple medical problems including history of COPD, CHF, atrial fibrillation, hypertension, hyperlipidemia, ASCVD, PVD, recent hospitalization for acute COPD and CHF exacerbation complicated by COVID illness discharged on 10/21/2024 back to [facility], returns today by EMS having been found with shortness of breath, fairly sudden onset after starting a meal. Patient apparently coughed out a copious amount of yellow phlegm. Patient apparently had a initial saturation at the [facility] in the 50s on room air, increased to 70s with supplemental oxygen, received CPAP and DuoNebs x 2 by EMS. Patient was seen by respiratory therapy shortly after arrival who suctioned his posterior oropharynx with notable improvement in pulse ox, now saturating in the 90s. Patient has no complaints at this time. His who is here in the room notes he has had persistent shortness of breath and difficulty speaking over the past week posthospitalization without significant change. He has been generally weak. Related Data Home Medications ?Medication ?Instructions ?Recorded ?Confirmed trazodone 100 mg tablet 100 mg PO HS 08/09/13 11/02/24 atorvastatin 40 mg tablet 40 mg PO HS 02/06/23 11/02/24 omeprazole 20 mg capsule,delayed 20 mg PO DAILY 02/06/23 11/02/24 release finasteride 5 mg tablet 5 mg PO HS 06/03/24 11/02/24 oxycodone 5 mg capsule 5 mg PO Q6H PRN PRN severe pain 06/03/24 11/02/24 (scale score 7-10) ipratropium 20 mcg-albuterol 100 1 puff inhalation Q6H PRN PRN 08/07/24 11/02/24 mcg/actuation mist for inhalation bronchospasm (Combivent Respimat) nitroglycerin 0.4 mg sublingual 0.4 mg sublingual Q5 MIN PRN X3 PRN 08/07/24 11/02/24 tablet risperidone 1 mg tablet (Risperdal) 1 mg PO BID 10/19/24 11/02/24 venlafaxine 75 mg tablet 75 mg PO DAILY 10/19/24 11/02/24 cholecalciferol (vitamin D3) 25 1,000 unit PO DAILY 10/20/24 11/02/24 mcg (1,000 unit) capsule metoprolol tartrate 25 mg tablet 25 mg PO Q6H 10/20/24 11/02/24 polyethylene glycol 3350 17 gram 17 g PO BID PRN PRN 10/20/24 11/02/24 oral powder packet (Miralax) sennosides 8.6 mg-docusate sodium 2 tab PO BID 10/20/24 11/02/24 50 mg tablet (Senna-S) albuterol sulfate 90 mcg/actuation 2 puff inhalation Q4H PRN PRN 10/21/24 11/02/24 aerosol inhaler wheezing bisacodyl 10 mg rectal suppository 10 mg TN DIRECTED PRN 10/21/24 11/02/24 (Dulcolax (bisacodyl)) cefpodoxime 200 mg tablet 200 mg PO BID #7 tabs 10/21/24 11/02/24 chlorhexidine gluconate 0.12 % 15 ml PO BID gingavitis 10/21/24 11/02/24 mouthwash (Peridex) clindamycin phosphate 1 % lotion 1 applic topical BID 10/21/24 11/02/24 (Cleocin T) glucagon 1 mg solution for 1 mg IM DIRECTED PRN 10/21/24 11/02/24 injection (GlucaGen HypoKit) glucose 1 dose PO DIRECTED PRN 10/21/24 11/02/24 lorazepam 0.5 mg tablet (Ativan) 0.5 mg PO Q8H PRN PRN agitation 10/21/24 11/02/24 magnesium hydroxide 400 mg/5 mL 30 ml PO DIRECTED PRN 10/21/24 11/02/24 oral suspension (Milk of Magnesia) sodium phosphates 19 gram-7 118 ml TN DIRECTED PRN 10/21/24 11/02/24 gram/118 mL enema acetaminophen 325 mg capsule 975 mg PO .Q8 PRN 11/02/24 11/02/24 guaifenesin 1,200 mg tablet, 1,200 mg PO BID 11/02/24 11/02/24 extended release 12 hr (Mucinex) lidocaine 4 % topical patch 1 patch topical DAILY PRN 11/02/24 11/02/24 (Aspercreme (lidocaine)) multivitamin,tx-minerals (Super 1 tab PO DAILY 11/02/24 11/02/24 Thera Ada M tablet) Previous Rx's ?Medication ?Instructions ?Recorded cefpodoxime 200 mg tablet 200 mg PO BID #7 tabs 10/21/24 Allergies Allergy/AdvReac Type Severity Reaction Status Date / Time fluticasone Allergy Unknown Headache Verified 10/19/24 12:52 gabapentin Allergy Unknown Psychosis Verified 10/19/24 12:52 pregabalin Allergy Unknown Psychosis Verified 10/19/24 12:52 doxycycline AdvReac Intermediate vomiting Verified 10/19/24 12:52 morphine AdvReac Unknown Psychosis Verified 10/19/24 12:52 General Stated Complaint: SOB/SuddenOnset HAROLDO: 3 Exam Const General: cooperative and no acute distress Orientation: other (fatigued) HENRI Head: atraumatic Mouth: moist mucous membranes Throat: posterior oropharynx normal Eyes Conjunctivae: normal conjunctivae Sclera: normal sclerae Neck Neck: trachea midline and supple Resp Effort & Inspection: not able to speak in complete sentences Auscultation: no rales and rhonchi upper bilaterally Cardio Rate: regular rate and not tachycardic Rhythm: regular rhythm GI Palpation: soft, not firm, no guarding, no masses, not rigid and nontender Skin Trauma: abrasion (rt elbow healing with granulation tissue) Neuro General: patient alert, patient awake and tone normal Extrem General: edema Laterality: bilateral (1+) Course Vital Signs Vital signs: Vital Signs Temperature 36.4 C 11/02/24 14:15 Pulse 92 H 11/02/24 14:15 Respiratory Rate 24 11/02/24 14:15 Pulse Oximetry 100 11/02/24 14:15 Temperature 36.4 C 11/02/24 14:15 Temperature Source Tympanic 11/02/24 14:15 Pulse 90 11/02/24 14:47 Pulse 93 H 11/02/24 14:47 Respiratory Rate 20 11/02/24 14:47 Respiratory Effort Labored 11/02/24 14:42 Respiratory Depth Normal 11/02/24 14:42 Respiratory Pattern Tachypnea 11/02/24 14:42 Blood Pressure 111/48 L 11/02/24 14:47 Blood Pressure Mean 71 11/02/24 14:47 Pulse Oximetry 91 L 11/02/24 14:47 Oxygen Delivery Method Room Air 11/02/24 14:33 Oxygen Flow Rate 0 11/02/24 14:33 Medical Decision Making 1514?- 78-year-old male with multiple medical problems including history of dementia, COPD, CHF, A-fib, recently hospitalized for acute COPD and CHF exacerbation with COVID illness, experienced sudden shortness of breath and hypoxia (50s) after starting a meal, significant improvement after oropharyngeal suctioning, now saturating in the low 90s but continues to have coarse upper airway rhonchi. Patient does have 1+ pitting edema bilateral lower extremities. Screening EKG was reviewed and interpreted by me: Delete atrial fibrillation, 97 bpm, right bundle branch block, please see report. Consider choking episode versus difficulty handling airway secretions versus CHF versus COPD with improvement after neb treatment by EMS. Patient is fatigued and I am concerned about potential hypercarbia. I will check VBG. Plan to check BNP and troponin. Will obtain chest x-ray. I will request that speech therapy evaluate the patient for swallow evaluation. -- Speech therapist Sofía Rodríguez reviewed record and recommends thorough oral care before and after every meal and in terms of liquids nothing but water between meals. She recommends small sips/bites and soft foods. She feels MBSS likely appropriate. She will plan on in person evaluation on Tuesday if still hospitalized or as an outpatient. 1720 --chest x-ray reviewed and interpreted by radiology:1. Opacity seen in the right mid lung. This may represent a developing pneumonia. Follow-up as clinically appropriate. 2. Persistent small bilateral pleural effusions. 3. Mild cardiomegaly. Labs reviewed and chronic anemia noted. Mild hypokalemia and hypomagnesemia noted. Hyperglycemia noted. BNP remains elevated at 3550. VBG concerning for hypercarbia with PCO2 of 58. Plan to initiate treatment for potential aspiration pneumonia with ampicillin-sulbactam IV. Blood culture sent. Patient reassessed and saturating low 90s, asleep on room air. --Patient has sacral decubitus ulcer. He has groin rash that appears cystic with fibrotic skin changes and scar tissue. Patient also has healing right elbow wound with granulation tissue. -- I spoke with Dr. Rodríguez and then with Dr. Cortez who will admit the patient. Lab Data Lab results reviewed: Yes I reviewed the patient's lab results. Labs: 11/02/24 18:06 Blood Blood Culture - Pending 11/02/24 17:47 Blood Blood Culture - Pending Laboratory Tests Range/Units 11/02/24 11/02/24 11/02/24 14:30 15:14 15:28 WBC (4.4-10.8) 10^3/uL 9.94 RBC (4.36-5.78) 10^6/uL 3.41 L Hgb (13.5-17.5) g/dL 9.0 L Hct (40.0-50.0) % 31.0 L MCV (80-95) fL 91 MCH (27.0-33.0) pg 26.4 L MCHC (32.0-36.0) % 29.0 L RDW (11.8-14.1) % 16.7 H Plt Count (130-400) 10^3/uL 230 MPV (8.0-11.0) fL 10.8 Immature Gran % % 0.5 Neutrophils % % 76.8 Lymphocytes % % 13.9 Monocytes % % 7.0 Eosinophils % % 1.4 Basophils % % 0.4 Nucleated RBC % (0.0-0.3) % 0.0 Absolute Neutrophils (1.2-6.7) 10^3/uL 7.63 H Absolute Lymphocytes (1.2-3.4) 10^3/uL 1.38 Absolute Monocytes (0.1-0.8) 10^3/uL 0.70 Absolute Eosinophils (0.0-0.7) 10^3/uL 0.14 Absolute Basophils (0.0-0.2) 10^3/uL 0.04 VBG pH (7.31-7.41) 7.34 VBG pCO2 (41-51) mmHg 58 H VBG pO2 mmHg 37 VBG HCO3 (23-28) mmol/L 31 H VBG Total CO2 (24-29) mmol/L 30 H VBG O2 Saturation % 62 VBG Base Excess (-2-3) mmol/L 6 H Sodium Cancelled 142 Potassium Cancelled 3.4 L Chloride Cancelled 106 Carbon Dioxide Cancelled 31.6 Anion Gap Cancelled 4.4 BUN Cancelled 13 Creatinine Cancelled 0.9 Est GFR (CKD-EPI 2020) Cancelled 87.96 Glucose Cancelled 188 H Calcium Cancelled 8.8 Magnesium Cancelled 1.7 L Total Bilirubin Cancelled 0.4 AST Cancelled 14 L ALT Cancelled 7 L Alkaline Phosphatase Cancelled 106 Troponin I Cancelled 6 NT-Pro-B Natriuret Pep Cancelled 3550 H Total Protein Cancelled 6.7 Albumin Cancelled 1.9 L Quality:SDOH Health Related Social Needs: No Data to Display PFSH All Active Problems (Updated 11/02/24 @ 21:19 by Dioni Rojas MD) Hypokalemia (Acute) Hypomagnesemia (Acute) Decubitus ulcer of sacral area (Acute) Aspiration pneumonia (Acute) Hypomagnesemia (Acute) Hypokalemia (Acute) Dementia with behavioral disturbance (Chronic) Aspiration pneumonia (Acute) COVID-19 (Acute) Anemia (Chronic) CHF (congestive heart failure) (Chronic) Acute hypercapnic respiratory failure (Acute) Yeast infection of the skin (Acute) Acute respiratory failure with hypoxia and hypercarbia (Acute) Hemopneumothorax on left (Acute) Pain in joint, foot, left (Acute) Corns and callosities (Acute) Cellulitis (Acute) Venous (peripheral) insufficiency (Acute) PAD (peripheral artery disease) (Acute) Onychomycosis (Acute) Neuropathy (Acute) Atrial fibrillation (Chronic) Hearing loss (Acute) with subjective 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 Mononeuritis (Acute) Hyperlipidemia (Chronic) Essential (primary) hypertension (Chronic) BPH (benign prostatic hyperplasia) (Chronic) ADHD (Acute) ASCVD (arteriosclerotic cardiovascular disease) (Chronic) Long-term current use of opiate analgesic (Acute) Tobacco use disorder (Chronic) Venous stasis dermatitis (Acute) Peripheral edema (Acute) 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 Frequent falls (Acute) Medical History Viral meningitis Complete rotator cuff tear right Cervical spondylosis Bursitis 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
[2024-11-02 15:16] LABS: Abs Immature Grans 0.05 10^3/uL (0.0-0.06); Absolute Basophil Count 0.04 10^3/uL (0.0-0.2); Absolute Eosinophil Count 0.14 10^3/uL (0.0-0.7); Absolute Lymphocyte Count 1.38 10^3/uL (1.2-3.4); Absolute Neutrophil Count 7.63 10^3/uL (1.2-6.7); Basophils % 0.4 %; Eosinophils % 1.4 %; Immature Grans % 0.5 %; Lymphocytes % 13.9 %; MCH 26.4 pg (27.0-33.0); MCV 91 fL (80-95); MPV 10.8 fL (8.0-11.0); Neutrophils % 76.8 %; Platelet Count 230 10^3/uL (130-400); RBC 3.41 10^6/uL (4.36-5.78); RDW 16.7 % (11.8-14.1); RDW-SD 55.1 fL; WBC 9.94 10^3/uL (4.4-10.8)
[2024-11-02 15:20] LABS: BE (Venous) 6 mmol/L (-2-3); HCO3 (Venous) 31 mmol/L (23-28); O2 Sat (Venous) 62 %; TCO2 (Venous) 30 mmol/L (24-29); pCO2 (Venous) 58 mmHg (41-51); pH (Venous) 7.34 (7.31-7.41); pO2 (Venous) 37 mmHg
[2024-11-02 16:35] LABS: ALT 7 U/L (16-63); AST 14 U/L (15-37); Albumin 1.9 g/dL (3.4-5.0); Alkaline Phosphatase 106 U/L (46-116); Anion Gap 4.4 mmol/L (3-11); BUN 13 mg/dL (7-18); Bilirubin, Total 0.4 mg/dL (0.2-1.0); CO2 31.6 mmol/L (21.0-32.0); CREATININE 0.9 mg/dL (0.70-1.30); Calcium 8.8 mg/dL (8.5-10.1); Chloride 106 mmol/L (98-107); Estimated GFR 87.96 (mL/min/1.73m2); Glucose 188 mg/dL (74-106); Magnesium 1.7 mg/dL (1.8-2.4); NT-proBNP 3550 pg/mL (<300); Potassium 3.4 mmol/L (3.5-5.1); Sodium 142 mmol/L (136-145); Total Protein 6.7 g/dL (6.4-8.2); Troponin I 6 ng/L (<or=76)
--- NOTE | 2024-11-02 17:17 | NUR.NOTE ---
Pt has several wounds/skin lesions. Right elbow has abrasion skin tear with weeping. Dressing changed, MD aware. Pt also has excoriation and tunneling on groin, bottom, and above penis. Penis is swollen with phomosis and unable to retract foreskin. Reported this has been ongoing for some time. Sacral ulcer noted as well. Has skin breakdown and stageable (III). Wedge placed under pt to keep off of backside, pt changed, cleaned to ensure dry and barrier cream applied. ROCKY CumminsN, RN Nursing Note:
[2024-11-02] MEDS: AMPICILLIN/SULBACTAM 3 GM in Normal Saline 100 ML IVPB (18:08)
--- NOTE | 2024-11-02 18:33 | HPE_ITS ---
Date of service: 11/02/24 Time of Service: 19:30 Assessment and Plan Assessment and plan (1) Aspiration pneumonia: Start date: 11/02/24 Status: Acute Assessment and plan: This is a 78-year-old gentleman who had recent hospitalized with COVID and was markedly compromised being returned to the [place] [facility] with dementia and behavioral abnormalities. He had increased coughing and choking after a meal with production of sputum and hypoxemia requiring nebulizer treatments and BiPAP on the scene. His oxygenation cleared as he coughed up mucus but ED evaluation did reveal right middle lobe pneumonia. This most likely was aspiration. Patient was intermittently requiring oxygen and was admitted for IV Unasyn with IV doxycycline with close monitoring of his respiratory status with speech pathology to have swallow evaluation and recommendations. Plans are for the patient to return to the [place] [facility]. He is approaching comfort measures only. The patient is a DNR/DNI. (2) Acute hypercapnic respiratory failure: Start date: 11/02/24 Status: Acute Assessment and plan: Secondary to aspiration and patient does have COPD. Aggressive nebulizer treatments with treatment of pneumonia. He does not appear to have severe COPD exacerbation and was not placed on steroids. (3) Hypokalemia: Start date: 11/02/24 Status: Acute Assessment and plan: IV repletion and follow-up lab. (4) Hypomagnesemia: Start date: 11/02/24 Status: Acute Assessment and plan: IV repletion and follow-up lab. (5) Atrial fibrillation: Status: Chronic Assessment and plan: Not on anticoagulation with patient on Lovenox during this hospital stay. DVT prophylaxis. Patient does have chronic anemia which is normocytic. (6) CHF (congestive heart failure): Status: Chronic Assessment and plan: Continue outpatient medical therapy. (7) Essential (primary) hypertension: Status: Chronic Assessment and plan: Continue outpatient medical therapy adjust as needed. (8) Dementia with behavioral disturbance: Status: Chronic Assessment and plan: Continue outpatient medical therapy for behavioral abnormalities and mood. (9) Hyperlipidemia: Status: Chronic Assessment and plan: Continue outpatient statin therapy. (10) Chronic low back pain: Status: Chronic Assessment and plan: Patient is on chronic pain management for back pain with prescribed narcotics at a low dose with infrequent use of oxycodone and having previously been on Suboxone. He also receives benzodiazepine with close monitoring in the [place] [facility]. VPMS was reviewed and consistent with his prescription pattern. Patient is supervising her at home and is at low risk for misuse of his medications. Urine drug screen was not indicated. Continue his [facility] medical regimen with caution watching for respiratory depression especially with his acute respiratory disease. He is approaching palliative care. (11) ASCVD (arteriosclerotic cardiovascular disease): Status: Chronic Assessment and plan: Continue outpatient medical therapy and monitor for exacerbation. (12) Tobacco use disorder: Status: Chronic Assessment and plan: Patient does have on his history being an every day smoker this may not be the case presently with him in the [place] [facility] and having his recent respiratory illness. (13) Anemia: Status: Chronic Assessment and plan: Chronic and normocytic and stable. No further evaluation as an inpatient. History of Present Illness History of Present Illness Chief Complaint: Acute dyspnea after choking with eating and low oxygen level. Narrative: This is a 78-year-old male patient who has multiple medical problems living at a local [place] [facility] with dementia and behavioral issues. He was recently hospitalized for COVID which was complicated with exacerbation at his respiratory symptoms with CHF and COPD. He denies any fever and had only transient drop in his oxygen at the [place] [facility] in the 50% range but was doing well on room air at the time I admitted him. He had no other complaints but is still having respiratory difficulties with intermittent need for oxygen. He has no significant wheeze. P.o. on Omnicef sitting up in the chair with a belt for protection having dementia with some behavior at abnormalities as mentioned. He offers no further history with notes of the review of systems and review of history given by the [place] [facility] and family. He will be seen by speech pathology for swallow evaluation. His other chronic medical problems including chronic atrial fibrillation not on anticoagulation with chronic anemia which is severe and normocytic, hypertension, hyperlipidemia, ASCVD, PVD and CHF with no recent echo report. He remains a DNR/DNI and is being discussed for comfort measures only with family according to the ED provider. Review of Systems Narrative: 13 point review of systems otherwise unrevealing or stable per caregivers. Patient had copious amounts of phlegm after his choking episode. He did receive CPAP and DuoNebs by EMS. PFSH All Active Problems Hypokalemia (Acute) Hypomagnesemia (Acute) Decubitus ulcer of sacral area (Acute) Aspiration pneumonia (Acute) Hypomagnesemia (Acute) Hypokalemia (Acute) Dementia with behavioral disturbance (Chronic) Aspiration pneumonia (Acute) COVID-19 (Acute) Anemia (Chronic) CHF (congestive heart failure) (Chronic) Acute hypercapnic respiratory failure (Acute) Yeast infection of the skin (Acute) Acute respiratory failure with hypoxia and hypercarbia (Acute) Hemopneumothorax on left (Acute) Pain in joint, foot, left (Acute) Corns and callosities (Acute) Cellulitis (Acute) Venous (peripheral) insufficiency (Acute) PAD (peripheral artery disease) (Acute) Onychomycosis (Acute) Neuropathy (Acute) Atrial fibrillation (Chronic) Hearing loss (Acute) with subjective 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 Mononeuritis (Acute) Hyperlipidemia (Chronic) Essential (primary) hypertension (Chronic) BPH (benign prostatic hyperplasia) (Chronic) ADHD (Acute) ASCVD (arteriosclerotic cardiovascular disease) (Chronic) Long-term current use of opiate analgesic (Acute) Tobacco use disorder (Chronic) Venous stasis dermatitis (Acute) Peripheral edema (Acute) 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 Frequent falls (Acute) Medical History Viral meningitis Complete rotator cuff tear right Cervical spondylosis Bursitis 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 Exposure to Agent [place] Social History Smoking/Tobacco Use Status: Current every day Tobacco Type: cigarettes Smoking packs per day: 1 Smoking cigarettes per day: 20.0 Years smoked: 50 Smoking pack- years: 50.00 Smoking risk assessment performed?: Yes Alcohol Intake: never Drug use: Never Substance use type: does not use Housing: [facility] Do you feel safe at home: Yes Do you feel safe in your relationship?: Yes Meds Allergies and Home Medications Allergies Allergy/AdvReac Type Severity Reaction Status Date / Time fluticasone Allergy Unknown Headache Verified 10/19/24 12:52 gabapentin Allergy Unknown Psychosis Verified 10/19/24 12:52 pregabalin Allergy Unknown Psychosis Verified 10/19/24 12:52 doxycycline AdvReac Intermediate vomiting Verified 10/19/24 12:52 morphine AdvReac Unknown Psychosis Verified 10/19/24 12:52 Home Medications ?Medication ?Instructions ?Recorded ?Confirmed ?Type trazodone 100 mg tablet 100 mg PO HS 08/09/13 11/02/24 History atorvastatin 40 mg tablet 40 mg PO HS 02/06/23 11/02/24 History omeprazole 20 mg capsule,delayed 20 mg PO DAILY 02/06/23 11/02/24 History release finasteride 5 mg tablet 5 mg PO HS 06/03/24 11/02/24 History oxycodone 5 mg capsule 5 mg PO Q6H PRN PRN severe pain 06/03/24 11/02/24 History (scale score 7-10) ipratropium 20 mcg-albuterol 100 1 puff inhalation Q6H PRN PRN 08/07/24 11/02/24 History mcg/actuation mist for inhalation bronchospasm (Combivent Respimat) nitroglycerin 0.4 mg sublingual 0.4 mg sublingual Q5 MIN PRN X3 PRN 08/07/24 11/02/24 History tablet risperidone 1 mg tablet (Risperdal) 1 mg PO BID 10/19/24 11/02/24 History venlafaxine 75 mg tablet 75 mg PO DAILY 10/19/24 11/02/24 History cholecalciferol (vitamin D3) 25 1,000 unit PO DAILY 10/20/24 11/02/24 History mcg (1,000 unit) capsule metoprolol tartrate 25 mg tablet 25 mg PO Q6H 10/20/24 11/02/24 History polyethylene glycol 3350 17 gram 17 g PO BID PRN PRN 10/20/24 11/02/24 History oral powder packet (Miralax) sennosides 8.6 mg-docusate sodium 2 tab PO BID 10/20/24 11/02/24 History 50 mg tablet (Senna-S) albuterol sulfate 90 mcg/actuation 2 puff inhalation Q4H PRN PRN 10/21/24 11/02/24 History aerosol inhaler wheezing bisacodyl 10 mg rectal suppository 10 mg AK DIRECTED PRN 10/21/24 11/02/24 History (Dulcolax (bisacodyl)) cefpodoxime 200 mg tablet 200 mg PO BID #7 tabs 10/21/24 11/02/24 Rx chlorhexidine gluconate 0.12 % 15 ml PO BID gingavitis 10/21/24 11/02/24 History mouthwash (Peridex) clindamycin phosphate 1 % lotion 1 applic topical BID 10/21/24 11/02/24 History (Cleocin T) glucagon 1 mg solution for 1 mg IM DIRECTED PRN 10/21/24 11/02/24 History injection (GlucaGen HypoKit) glucose 1 dose PO DIRECTED PRN 10/21/24 11/02/24 History lorazepam 0.5 mg tablet (Ativan) 0.5 mg PO Q8H PRN PRN agitation 10/21/24 11/02/24 History magnesium hydroxide 400 mg/5 mL 30 ml PO DIRECTED PRN 10/21/24 11/02/24 History oral suspension (Milk of Magnesia) sodium phosphates 19 gram-7 118 ml AK DIRECTED PRN 10/21/24 11/02/24 History gram/118 mL enema acetaminophen 325 mg capsule 975 mg PO .Q8 PRN 11/02/24 11/02/24 History guaifenesin 1,200 mg tablet, 1,200 mg PO BID 11/02/24 11/02/24 History extended release 12 hr (Mucinex) lidocaine 4 % topical patch 1 patch topical DAILY PRN 11/02/24 11/02/24 History (Aspercreme (lidocaine)) multivitamin,tx-minerals (Super 1 tab PO DAILY 11/02/24 11/02/24 History Thera Ada M tablet) Exam Narrative Exam Narrative: General: Patient appears older than stated age, alert and oriented at least to person and place, in no acute distress sitting up in chair next to bed. HEENT: Normocephalic, eyes with pupils equal and react to light symmetrically, extraocular movement intact and sclera anicteric. Oropharynx with dry mucosa and very poor dentition with mostly missing teeth. Neck: Supple without JVD. Back: Kyphotic without CVA tenderness. Lungs: Bronchovesicular breath sounds diffusely with occasional coarse crackle and not focalizing. No increased expiratory phase or expiratory wheeze. Fair aeration. Heart: Distant heart sounds obscured by lung findings, irregularly irregular rhythm with normal rate. No appreciable murmur or gallop. Abdomen: Obese contour, soft and nontender to palpation with no palpable hepatosplenomegaly. Bowel sounds positive all quadrants. No guarding or rebound. Genitalia/rectal: Exam deferred. Extremities: Without clubbing or cyanosis. Chronic hard edema with some atrophy and hyperpigmentation of the skin over both lower extremities. Fair cap refill. Skin: Chronic changes over legs as mention, otherwise normal color, warm and dry. Neuro: Cranial nerves II through XII gross intact, no focalizing motor deficits and no tremor. Psych: Flattened affect with depressed mood. Patient is soft-spoken with no abnormal thought processes. Remote memory grossly intact with recent memory less intact. Results Imaging Imaging Studies: EXAM: XR CHEST 2V PA LATERAL Date of exam: 11/02/2024 CLINICAL HISTORY: cough, choking episode with eating TECHNIQUE: 2D digital imaging was performed of the chest. Two images were obtained. AP and lateral views were obtained. COMPARISON: CR,XR XR CHEST 2V PA LATERAL from 10/20/2024 FINDINGS: Normal Patient had a hospital admission with Dr. Rojas had an admission for mt MEDIASTINUM: Normal. HEART: Mild cardiomegaly. PULMONARY VASCULATURE: Normal. LUNGS: There is a small opacity in the right mid lung. The left lung appears grossly clear. PLEURAL SPACE: There are small bilateral pleural effusions noted. The appears slightly smaller compared to the prior examination. BONE:Within normal limits for the patient's age. Internal fixation of old left clavicular and left rib fractures are noted. OTHER FINDINGS:Normal. IMPRESSION: 1. Opacity seen in the right mid lung. This may represent a developing pneumonia. Follow-up as clinically appropriate. 2. Persistent small bilateral pleural effusions. 3. Mild cardiomegaly. Labs 11/03/24 06:10 11/02/24 15:28 Labs: Laboratory Results - last 24 hr 11/02/24 11/02/24 11/02/24 14:30 15:14 15:28 WBC 9.94 RBC 3.41 L Hgb 9.0 L Hct 31.0 L MCV 91 MCH 26.4 L MCHC 29.0 L RDW 16.7 H Plt Count 230 MPV 10.8 Immature Gran % 0.5 Neutrophils % 76.8 Lymphocytes % 13.9 Monocytes % 7.0 Eosinophils % 1.4 Basophils % 0.4 Nucleated RBC % 0.0 Absolute Neutrophils 7.63 H Absolute Lymphocytes 1.38 Absolute Monocytes 0.70 Absolute Eosinophils 0.14 Absolute Basophils 0.04 VBG pH 7.34 VBG pCO2 58 H VBG pO2 37 VBG HCO3 31 H VBG Total CO2 30 H VBG O2 Saturation 62 VBG Base Excess 6 H Sodium Cancelled 142 Potassium Cancelled 3.4 L Chloride Cancelled 106 Carbon Dioxide Cancelled 31.6 Anion Gap Cancelled 4.4 BUN Cancelled 13 Creatinine Cancelled 0.9 Est GFR (CKD-EPI 2020) Cancelled 87.96 Glucose Cancelled 188 H Calcium Cancelled 8.8 Magnesium Cancelled 1.7 L Total Bilirubin Cancelled 0.4 AST Cancelled 14 L ALT Cancelled 7 L Alkaline Phosphatase Cancelled 106 Troponin I Cancelled 6 NT-Pro-B Natriuret Pep Cancelled 3550 H Total Protein Cancelled 6.7 Albumin Cancelled 1.9 L Last Vital Signs Temp 36.9 C 11/02/24 18:02 Pulse 84 11/02/24 18:02 Resp 15 11/02/24 18:02 BP 160/120 H 11/02/24 18:01 Pulse Ox 95 11/02/24 18:02 Time Spent Time spent with Patient: >75 minutes Time was spent: preparing to see the patient(eg.review tests), ordering medications,tests, procedures, indepentently interpreting results and care coordination
[2024-11-02] MEDS: MAGNESIUM SULFATE 2 GM/50 ML BAG IV_INF (19:22)
[2024-11-02] MEDS: POTASSIUM CHLORIDE 20 MEQ/100 ML BAG 50 MEQ IV_INF ×2 (19:22→22:37)
[2024-11-02] MEDS: Normal Saline 500 ML IV (19:29)
--- NOTE | 2024-11-02 21:24 | W.PC.ACHO ---
Registration Status: Primary Language: Preferred Language: ED Information & Data Chief Complaint SOB/SuddenOnset 11/02/24 15:13 Triage Note Resident of [facility] c/o 11/02/24 14:15 sudden SOB s/p meal. Reportedly coughed up yellow phlegm (described as copious and suctioned out). Initial SpO2 50's, increased to 70's w/ supplemental O2 on CPAP and duonebs x2. 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 Exposure to Agent [place] Most Recent Vital Signs Temperature 36.9 C 11/02/24 18:02 Temperature Source Tympanic 11/02/24 14:15 Pulse 98 H 11/02/24 19:47 Pulse 99 H 11/02/24 20:50 Respiratory Rate 16 11/02/24 20:50 Respiratory Effort Labored 11/02/24 14:42 Respiratory Depth Normal 11/02/24 14:42 Respiratory Pattern Tachypnea 11/02/24 14:42 Blood Pressure 178/98 H 11/02/24 19:47 Blood Pressure Mean 124 11/02/24 19:47 Pulse Oximetry 93 11/02/24 19:31 Oxygen Delivery Method Room Air 11/02/24 14:33 Oxygen Flow Rate 0 11/02/24 14:33 Allergies fluticasone Allergy (Unknown, Verified 10/19/24 12:52) Headache gabapentin Allergy (Unknown, Verified 10/19/24 12:52) Psychosis pregabalin Allergy (Unknown, Verified 10/19/24 12:52) Psychosis doxycycline Adverse Reaction (Intermediate, Verified 10/19/24 12:52) vomiting morphine Adverse Reaction (Unknown, Verified 10/19/24 12:52) Psychosis Active Medications Generic Name Dose Route Start Last Admin Trade Name Freq PRN Reason Stop Dose Admin Potassium Chloride 20 meq in 100 mls @ 50 mls/hr 11/02/24 19:15 11/02/24 19:22 IV_INF 11/02/24 23:14 50 mls/hr Q2H SHIRA Administration IV IV Catheter Type [Left Saline Lock Antecubital] IV Catheter Gauge [Left 18 Antecubital] Diagnostics 11/02/24 11/02/24 11/02/24 Range/Units 19:36 15:28 15:14 WBC (4.4-10.8) 10^3/uL RBC (4.36-5.78) 10^6/uL Hgb (13.5-17.5) g/dL Hct (40.0-50.0) % MCV (80-95) fL MCH (27.0-33.0) pg MCHC (32.0-36.0) % RDW (11.8-14.1) % Plt Count (130-400) 10^3/uL MPV (8.0-11.0) fL Immature Gran % % Neutrophils % % Lymphocytes % % Monocytes % % Eosinophils % % Basophils % % Nucleated RBC % (0.0-0.3) % Absolute Neutrophils (1.2-6.7) 10^3/uL Absolute Lymphocytes (1.2-3.4) 10^3/uL Absolute Monocytes (0.1-0.8) 10^3/uL Absolute Eosinophils (0.0-0.7) 10^3/uL Absolute Basophils (0.0-0.2) 10^3/uL VBG pH 7.34 (7.31-7.41) VBG pCO2 58 H (41-51) mmHg VBG pO2 37 mmHg VBG HCO3 31 H (23-28) mmol/L VBG Total CO2 30 H (24-29) mmol/L VBG O2 Saturation 62 % VBG Base Excess 6 H (-2-3) mmol/L Sodium 142 Potassium 3.4 L Chloride 106 Carbon Dioxide 31.6 Anion Gap 4.4 BUN 13 Creatinine 0.9 Est GFR (CKD-EPI 2020) 87.96 Glucose 188 H Calcium 8.8 Magnesium 1.7 L Total Bilirubin 0.4 AST 14 L ALT 7 L Alkaline Phosphatase 106 Troponin I 6 NT-Pro-B Natriuret Pep 3550 H Total Protein 6.7 Albumin 1.9 L MRSA (TEM-PCR) Pending 11/02/24 Range/Units 14:30 WBC 9.94 (4.4-10.8) 10^3/uL RBC 3.41 L (4.36-5.78) 10^6/uL Hgb 9.0 L (13.5-17.5) g/dL Hct 31.0 L (40.0-50.0) % MCV 91 (80-95) fL MCH 26.4 L (27.0-33.0) pg MCHC 29.0 L (32.0-36.0) % RDW 16.7 H (11.8-14.1) % Plt Count 230 (130-400) 10^3/uL MPV 10.8 (8.0-11.0) fL Immature Gran % 0.5 % Neutrophils % 76.8 % Lymphocytes % 13.9 % Monocytes % 7.0 % Eosinophils % 1.4 % Basophils % 0.4 % Nucleated RBC % 0.0 (0.0-0.3) % Absolute Neutrophils 7.63 H (1.2-6.7) 10^3/uL Absolute Lymphocytes 1.38 (1.2-3.4) 10^3/uL Absolute Monocytes 0.70 (0.1-0.8) 10^3/uL Absolute Eosinophils 0.14 (0.0-0.7) 10^3/uL Absolute Basophils 0.04 (0.0-0.2) 10^3/uL VBG pH (7.31-7.41) VBG pCO2 (41-51) mmHg VBG pO2 mmHg VBG HCO3 (23-28) mmol/L VBG Total CO2 (24-29) mmol/L VBG O2 Saturation % VBG Base Excess (-2-3) mmol/L Sodium Cancelled Potassium Cancelled Chloride Cancelled Carbon Dioxide Cancelled Anion Gap Cancelled BUN Cancelled Creatinine Cancelled Est GFR (CKD-EPI 2020) Cancelled Glucose Cancelled Calcium Cancelled Magnesium Cancelled Total Bilirubin Cancelled AST Cancelled ALT Cancelled Alkaline Phosphatase Cancelled Troponin I Cancelled NT-Pro-B Natriuret Pep Cancelled Total Protein Cancelled Albumin Cancelled MRSA (TEM-PCR) 11/02/24 18:06 Blood Culture - Pending Blood 11/02/24 17:47 Blood Culture - Pending Blood Intake and Output - 24 Hour Total 11/02/24 13:51 thru 11/02/24 21:05 Intake Total 100 Balance 100 Weight 72.5 kg Intake: IV 100 Falls Risk Assessment History of Falls Previous History 11/02/24 14:42 Contributing Factors Confusion,Unstable, 11/02/24 14:42 Impairments Ambulatory Aids Uses ambulatory device + 11/02/24 14:42 Tubes/Lines With any additional score 11/02/24 14:42 Gait Evaluation W/any additional score 11/02/24 14:42 Cognition No cognitive impairment 11/02/24 14:42 Fall Total Score 94 11/02/24 14:42 Level of Risk Maximum Risk 11/02/24 14:42 Problems (Last Reviewed 03/23/24 @ 21:49 by Carmella El NP) Hypomagnesemia (Acute) Hypokalemia (Acute) Dementia with behavioral disturbance (Chronic) Aspiration pneumonia (Acute) Anemia (Chronic) CHF (congestive heart failure) (Chronic) Acute hypercapnic respiratory failure (Acute) Atrial fibrillation (Chronic) Hyperlipidemia (Chronic) Essential (primary) hypertension (Chronic) ASCVD (arteriosclerotic cardiovascular disease) (Chronic) Tobacco use disorder (Chronic) Chronic low back pain (Chronic) Notes 11/02/24 17:17 Nursing Notes by Brian Greene Pt has several wounds/skin lesions. Right elbow has abrasion skin tear with weeping. Dressing changed, MD aware. Pt also has excoriation and tunneling on groin, bottom, and above penis. Penis is swollen with phomosis and unable to retract foreskin. Reported this has been ongoing for some time. Sacral ulcer noted as well. Has skin breakdown and stageable (III). Wedge placed under pt to keep off of backside, pt changed, cleaned to ensure dry and barrier cream applied. ROCKY CumminsN, RN Nursing Note: Initialized on 11/02/24 17:17 - END OF NOTE v v v v v v v v v Sending and/or Receiving Nurses: Please use comment section below to note any information pertinent to the patient hand-off not included above. Information / Comments: Report received from:Mayur. Patient is Alert and oriented with some confusion to time. Choked on food at [facility] today. On room air. Unknown ambulatory status.
[2024-11-02 22:20] LABS: TSH (W/Ref FT4) 0.96 uIU/mL (0.36-3.74)
[2024-11-02] MEDS: DOXYCYCLINE 100 MG in Normal Saline 100 ML IVPB (22:37)
[2024-11-02] MEDS: Metoprolol 12.5 MG TAB 25 MG PO (22:38)
[2024-11-02] MEDS: Finasteride 5 MG TAB PO (22:39)
[2024-11-02] MEDS: Normal Saline Flush 10 ML SYR IVP (22:39)
[2024-11-02] MEDS: Sennosides/Docusate Sodium TAB 2 TAB PO (22:39)
[2024-11-02] MEDS: Enoxaparin 40 MG/0.4 ML SYR SC (22:39)
[2024-11-02] MEDS: Atorvastatin 40 MG TAB PO (22:39)
[2024-11-02] MEDS: traZODone 100 MG TAB PO (22:39)
[2024-11-02] MEDS: risperiDONE 1 MG TAB PO (22:39)
[2024-11-02 23:01] LABS: MRSA PCR Negative (Negative)
[2024-11-03 00:08] LABS: Influenza A PCR Negative (Negative); Influenza B PCR Negative (Negative); RSV PCR Negative (Negative)
[2024-11-03 00:15] LABS: COVID-19 PCR Positive (Negative); Source Nasopharynx
[2024-11-03] MEDS: AMPICILLIN/SULBACTAM 3 GM in Normal Saline 100 ML IVPB ×3 (00:42→14:35)
[2024-11-03] MEDS: Metoprolol 12.5 MG TAB 25 MG PO ×4 (06:03→23:42)
[2024-11-03 06:34] LABS: HCT 30.5 % (40.0-50.0); MCH 26.5 pg (27.0-33.0); MCHC 29.5 % (32.0-36.0); MCV 90 fL (80-95); MPV 9.4 fL (8.0-11.0); Platelet Count 269 10^3/uL (130-400); RBC 3.39 10^6/uL (4.36-5.78); RDW 16.4 % (11.8-14.1); RDW-SD 53.8 fL; WBC 9.35 10^3/uL (4.4-10.8)
[2024-11-03 07:10] LABS: AST 15 U/L (15-37); Alkaline Phosphatase 108 U/L (46-116); Anion Gap 4.5 mmol/L (3-11); BUN 12 mg/dL (7-18); Bilirubin, Total 0.6 mg/dL (0.2-1.0); CO2 31.5 mmol/L (21.0-32.0); CREATININE 0.8 mg/dL (0.70-1.30); Calcium 8.7 mg/dL (8.5-10.1); Chloride 105 mmol/L (98-107); Estimated GFR 91.15 (mL/min/1.73m2); Glucose 102 mg/dL (74-106); Magnesium 1.9 mg/dL (1.8-2.4); Potassium 3.8 mmol/L (3.5-5.1); Sodium 141 mmol/L (136-145)
[2024-11-03 07:16] LABS: ALT < 6 U/L (16-63)
[2024-11-03 07:17] VITALS: BP 137/88; PULSE 79; RESP 16; TEMP 36; O2SAT 94
--- NOTE | 2024-11-03 08:14 | PT.INIE ---
PT Notes Visit Reasons: Aspiration pneumonia, Acute hypercapnic respirator Inpatient Physical Therapy Evaluation Date: 11/03/2024 Referring Doctor: Dr. Cortez PT Orders: PT CONSULT: Precautions: Standard Patient Profile/Admitting Diagnosis: Bijan is a 78-year-old male patient who has multiple medical problems living at a local alf with dementia and behavioral issues. He was recently hospitalized for COVID which was complicated with exacerbation at his respiratory symptoms with CHF and COPD; he was discharged back to [facility] 10/21/24. Presented to ED yesterday, 11/02/24, with breathing difficulty; admitted for medical management of pneumonia Social History/Home Situation: Bijan is a long-term resident of [facility]. He reports that he can normally walk short distances with a walker, estimating he could walk to the door and back at baseline. 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 Equipment Owned/DME: resident of LTC facility Subjective: Bijan is agreeable to PT consultation, but states that he will not be walking due to fatigue. Reports ongoing back pain. Objective: General Observation: Sitting in chair with chair alarm in place. No lines. Mental Status: A&O. Provides consistent history, and proud to report that he will be to his for 54 years next month. Pain: Back pain, chronic ROM: Right Upper Extremity: Shoulder flexion allows 30 degrees with significant crepitus. Elbow motion full. Partial opening of right hand with flexion contractures throughout the digits. Left Upper Extremity: Shoulder flexion allows 70 degrees with significant crepitus. Elbow motion full. Partial opening of left hand with flexion contractures throughout the digits. Right Lower Extremity: WFL Left Lower Extremity: WFL Strength: Right Upper Extremity: Hip flexion Left Upper Extremity: Shoulder flexion 3 -/5. Elbow flexion 3+/5. Elbow extension 4 -/5. Incident Response Specialist is weak but equal Right Lower Extremity: 4+/5. Quads 4+/5. Ankle dorsiflexion 4+/5. Left Lower Extremity: Extremity: 4+/5. Quads 4+/5. Ankle dorsiflexion 4+/5. Bed Mobility/Transfers: sit-stand: CGA stand-sit: CGA Gait: Patient declines ambulation. Able to stand at walker with SBA x 3 minutes for pericare. Balance: Static Sitting: Normal Dynamic Sitting: Good Static Standing: fair Dynamic Standing: fair Special Tests: Mobility Limitations Standardized Measure [facility] AM-PAC 6 clicks Basic Mobility Inpatient Short Form: Raw Score: 18 standardized Score: 43.63 CMS Score: 47% impairment Informed Consent/Education: Patient instructed in purpose of PT consult and plan of care. Treatment: Initial evaluation (73063) Therapeutic exercises (28060): Instructed in seated exercises, which patient is agreeable to. Encourage walking throughout session, although patient declines multiple times. Performed the following with minimal cues: Seated march 30 seconds LAQ 10 times each ankle pumps 10 times Sit?stand x 3 Assessment: Patient is a 78 year old male referred to physical therapy services in acute care setting, where he is being medically managed for pneumonia. Patient is a resident of a long-term care facility, with planned discharge back to LT once medically stable. He requires only CGA for transfers today, and is able to stand at walker with supervision only, however declines ambulation. Will benefit from PT intervention to maximize mobility during his acute care stay for acute medical issues. Patient currently demonstrates the following impairment level findings: 1. Decreased shoulder range of motion bilaterally 2. Decreased activity tolerance Impairments are contributing to the following functional limitations: 1. Unable to safely ambulate independently 2. Unable to safely transfer independently Patient is assessed as a Low 39518 complexity based on the following: History: As above. Extensive medical history as noted below. Examination: As above Presentation: Evolving to acute medical issues Decision Making: Low complexity Goals: Goals X1 week 1. Supine-Sit : supervision 2. Sit-Supine : supervision 3. Sit-Stand : supervision 4. Stand-Sit : supervision 5. Bed-Chair : supervision with FWW 6. Chair-Bed : supervision with FWW 7. Gait : CGA with FWW x 50' Plan of Care/Treatment Plan: 1-2x/day, 7 days/week x 1 week. Plan of care has been reviewed with the NUCLEAR DESIGN ENGINEER providing the service under Physical Therapy direction. Initiate Physical Therapy intervention for strengthening, bed mobility, transfers, gait, stairs, balance training, use of assistive device. DISCHARGE RECOMMENDATIONS: [facility] to [facility] TREATMENT CODE/TIME: [id number] (52806, 19238) Nancy Peterson, PT, DPT [facility] All Active Problems Hypokalemia (Acute) Hypomagnesemia (Acute) Decubitus ulcer of sacral area (Acute) Aspiration pneumonia (Acute) Hypomagnesemia (Acute) Hypokalemia (Acute) Dementia with behavioral disturbance (Chronic) Aspiration pneumonia (Acute) COVID-19 (Acute) Anemia (Chronic) CHF (congestive heart failure) (Chronic) Acute hypercapnic respiratory failure (Acute) Yeast infection of the skin (Acute) Acute respiratory failure with hypoxia and hypercarbia (Acute) Hemopneumothorax on left (Acute) Pain in joint, foot, left (Acute) Corns and callosities (Acute) Cellulitis (Acute) Venous (peripheral) insufficiency (Acute) PAD (peripheral artery disease) (Acute) Onychomycosis (Acute) Neuropathy (Acute) Atrial fibrillation (Chronic) Hearing loss (Acute) with subjective 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 Mononeuritis (Acute) Hyperlipidemia (Chronic) Essential (primary) hypertension (Chronic) BPH (benign prostatic hyperplasia) (Chronic) ADHD (Acute) ASCVD (arteriosclerotic cardiovascular disease) (Chronic) Long-term current use of opiate analgesic (Acute) Tobacco use disorder (Chronic) Venous stasis dermatitis (Acute) Peripheral edema (Acute) 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 Frequent falls (Acute) Medical History Viral meningitis Complete rotator cuff tear right Cervical spondylosis Bursitis 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
[2024-11-03] MEDS: Chlorhexidine Gluconate 0.12% Mouthwash 480 ML BTL 15 ML UD ×2 (09:03→20:01)
[2024-11-03] MEDS: Cholecalciferol (Vitamin D3) 1,000 UNIT TAB 1000 UNITS PO (09:03)
[2024-11-03] MEDS: guaiFENesin 600 MG TABCR 1200 MG PO ×2 (09:03→20:02)
[2024-11-03] MEDS: Multivitamin w/Minerals TAB 1 TAB PO (09:03)
--- NOTE | 2024-11-03 09:03 | INITIAL_ITS ---
Date of service: 11/03/24 Time of Service: 09:04 Care Management Initial Assmt Initial Assessment Reason for Hospitalization: Aspiration pneumonia, acute hypercapnic respirator Functional Status/Living Situation Patient Presentation: Bijan was sitting in his chair, visiting with his partner Denise. Avalos presents to the ED with shortness of breath, sudden onset after starting a meal. Bijan is currently at [facility] for STR; Per Sheryl, he has been there since June or July and she feels that he is not making much progress, and would likely be unsafe for him to return home in the future since she could not care for him. Per Sheryl, Bijan is a disabled [place] at 100% and [facility] CM will contiue to follow. 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) Instrumental Activities of Daily Living (ADLs): Requires support Activities/Hobbies/SocialSupport: Bijan states that he enjoys doing activities in the sun room at [facility] Medications Medication Management: No Issues/Barriers identified Physical Functioning/Mobility Assistive Device: FWW Advance Directives Advance Directives: Do you have an Advance Directive: N 09/05/18 15:47 AD On File at [facility]: N 09/05/18 15:47 Date Asked 11/02/24 11/02/24 19:26 AD Date Reviewed COLST On File at [facility] Yes 10/19/24 16:14 COLST Date Scanned Code Status Resuscitation Status DNR/DNI Portal Pt does not currently have a portal and education provided: No Insurance Coverage/Financial Issues Insurance: [facility] Care Team Visit Care Team Role Provider Type Brijesh Elliott Primary Care Provider NON-[facility] STAFF PHYSICIAN Cheyenne Crawford, INJURY PREVENTION COORDINATOR Other Providers SPEECH LANGUAGE PATHOLOGIST Sangeetha Rm, INJURY PREVENTION COORDINATOR Other Providers SPEECH LANGUAGE PATHOLOGIST Sofía Rodríguez Other Providers SPEECH LANGUAGE PATHOLOGIST Becky Whitehead, INJURY PREVENTION COORDINATOR Other Providers SPEECH LANGUAGE PATHOLOGIST Samanta Campbell, INJURY PREVENTION COORDINATOR Other Providers SPEECH LANGUAGE PATHOLOGIST Justyna Ahuja Other Providers OTHER Dioni Rojas MD Emergency Provider [facility] STAFF PHYSICIAN Alo Cortez Admit Provider NON-[facility] STAFF PHYSICIAN Attending Provider Discharge Potential Discharge Needs: PCP F/U Appt Anticipated Barriers to Discharge: None Identified Patient/Family Education Needs: Review discharge instructions, discuss Ask Me Three Transportation: [facility] Transportation: Wheel chair van Plan: Anticipate Bijan will return to [facility] once medically cleared. He will follow up with the facility providers and continue per his discharge plan of care. He will likely be transported via [facility]. CM will continue to follow and adjust the plan as needed. Social Determinants of Health Screening Will the Patient Participate in the Screening?: Declined to provide Do you worry about having a steady place to live?: no PFSH All Active Problems Hypokalemia (Acute) Hypomagnesemia (Acute) Decubitus ulcer of sacral area (Acute) Aspiration pneumonia (Acute) Hypomagnesemia (Acute) Hypokalemia (Acute) Dementia with behavioral disturbance (Chronic) Aspiration pneumonia (Acute) COVID-19 (Acute) Anemia (Chronic) CHF (congestive heart failure) (Chronic) Acute hypercapnic respiratory failure (Acute) Yeast infection of the skin (Acute) Acute respiratory failure with hypoxia and hypercarbia (Acute) Hemopneumothorax on left (Acute) Pain in joint, foot, left (Acute) Corns and callosities (Acute) Cellulitis (Acute) Venous (peripheral) insufficiency (Acute) PAD (peripheral artery disease) (Acute) Onychomycosis (Acute) Neuropathy (Acute) Atrial fibrillation (Chronic) Hearing loss (Acute) with subjective 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 Mononeuritis (Acute) Hyperlipidemia (Chronic) Essential (primary) hypertension (Chronic) BPH (benign prostatic hyperplasia) (Chronic) ADHD (Acute) ASCVD (arteriosclerotic cardiovascular disease) (Chronic) Long-term current use of opiate analgesic (Acute) Tobacco use disorder (Chronic) Venous stasis dermatitis (Acute) Peripheral edema (Acute) 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 Frequent falls (Acute) Medical History Viral meningitis Complete rotator cuff tear right Cervical spondylosis Bursitis 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
[2024-11-03] MEDS: risperiDONE 1 MG TAB PO ×2 (09:04→20:02)
[2024-11-03] MEDS: Omeprazole 20 MG CAPCR PO (09:04)
[2024-11-03] MEDS: Sennosides/Docusate Sodium TAB 2 TAB PO ×2 (09:04→20:01)
[2024-11-03] MEDS: Venlafaxine 75 MG TAB PO (09:04)
[2024-11-03] MEDS: Normal Saline Flush 10 ML SYR IVP ×2 (09:04→20:03)
[2024-11-03] MEDS: DOXYCYCLINE 100 MG in Normal Saline 100 ML IVPB (10:46)
--- NOTE | 2024-11-03 11:32 | PGE_ITS ---
Date of Service Date of service: 11/03/24 Time of Service: 11:32 Assessment and Plan Assessment and plan (1) Aspiration pneumonia: Status: Acute Assessment and plan: downstep to augmentin day 2 has been weaned off oxygen aspiration precautions mucinex albuterol prn (2) Acute hypercapnic respiratory failure: Status: Acute Assessment and plan: resolved and oxygenating well on room air. (3) Hypokalemia: Status: Acute Assessment and plan: resolved after repletion (4) Hypomagnesemia: Status: Acute Assessment and plan: repleted, and normalized (5) Atrial fibrillation: Status: Chronic Assessment and plan: Not on anticoagulation with patient on Lovenox during this hospital stay. DVT prophylaxis. Patient does have chronic anemia which is normocytic. (6) CHF (congestive heart failure): Status: Chronic Assessment and plan: stable with no exacerbation Continue outpatient medical therapy. (7) Essential (primary) hypertension: Status: Chronic Assessment and plan: Continue outpatient medical therapy adjust as needed. (8) Dementia with behavioral disturbance: Status: Chronic Assessment and plan: Continue outpatient medical therapy for behavioral abnormalities and mood. no behavioral disturbances. (9) Hyperlipidemia: Status: Chronic Assessment and plan: Continue outpatient statin therapy. (10) Chronic low back pain: Status: Chronic Assessment and plan: Patient is on chronic pain management for back pain with prescribed narcotics at a low dose with infrequent use of oxycodone and having previously been on Suboxone. He also receives benzodiazepine with close monitoring in the retirement. VPMS was reviewed and consistent with his prescription pattern. Patient is supervising her at home and is at low risk for misuse of his medications. Urine drug screen was not indicated. Continue his retirement medical regimen with caution watching for respiratory depression especially with his acute respiratory disease. He is approaching palliative care. (11) ASCVD (arteriosclerotic cardiovascular disease): Status: Chronic Assessment and plan: Continue outpatient medical therapy and monitor for exacerbation. (12) Tobacco use disorder: Status: Chronic Assessment and plan: Patient does have on his history being an every day smoker this may not be the case presently with him in the retirement and having his recent respiratory illness. (13) Anemia: Status: Chronic Assessment and plan: Chronic and normocytic and stable. No further evaluation as an inpatient. Subjective Subjective Patient reports: no new complaints, tolerating liquids well, tolerating a regular diet and afebrile; denies shortness of breath Interval history since last seen: Patient at his baseline oxygenating in the mid 90s on room air does have a moist nonproductive cough no shortness of breath chest pain or respiratory distress/symptoms noted. Tolerating p.o. intake up and and is his chair. Hemodynamically stable with no fever Exam Narrative Exam Narrative: Elderly male of stated age no acute distress head is atraumatic eyes nonicteric noninjected oral mucosas moist neck supple full range of motion respirations even unlabored breath sounds clear no wheezing cardiovascular regular rate and rhythm respirations even and unlabored abdomen benign moves all extremities bilateral peripheral edema extremity neurologic awake alert Objective Last Vital Signs Temp 36.0 C L 11/03/24 07:17 Pulse 79 11/03/24 07:17 Resp 16 11/03/24 07:17 BP 137/88 11/03/24 07:17 Pulse Ox 94 11/03/24 07:17 Laboratory Results - last 24 hr 11/02/24 11/02/24 11/02/24 14:30 15:14 15:28 WBC 9.94 RBC 3.41 L Hgb 9.0 L Hct 31.0 L MCV 91 MCH 26.4 L MCHC 29.0 L RDW 16.7 H Plt Count 230 MPV 10.8 Immature Gran % 0.5 Neutrophils % 76.8 Lymphocytes % 13.9 Monocytes % 7.0 Eosinophils % 1.4 Basophils % 0.4 Nucleated RBC % 0.0 Absolute Neutrophils 7.63 H Absolute Lymphocytes 1.38 Absolute Monocytes 0.70 Absolute Eosinophils 0.14 Absolute Basophils 0.04 VBG pH 7.34 VBG pCO2 58 H VBG pO2 37 VBG HCO3 31 H VBG Total CO2 30 H VBG O2 Saturation 62 VBG Base Excess 6 H Sodium Cancelled 142 Potassium Cancelled 3.4 L Chloride Cancelled 106 Carbon Dioxide Cancelled 31.6 Anion Gap Cancelled 4.4 BUN Cancelled 13 Creatinine Cancelled 0.9 Est GFR (CKD-EPI 2020) Cancelled 87.96 Glucose Cancelled 188 H Calcium Cancelled 8.8 Magnesium Cancelled 1.7 L Total Bilirubin Cancelled 0.4 AST Cancelled 14 L ALT Cancelled 7 L Alkaline Phosphatase Cancelled 106 Troponin I Cancelled 6 NT-Pro-B Natriuret Pep Cancelled 3550 H Total Protein Cancelled 6.7 Albumin Cancelled 1.9 L TSH 0.96 COVID-19 Source SARS-CoV-2 (PCR) Influenza Type A (PCR) Influenza Type B (PCR) RSV (PCR) MRSA (TEM-PCR) 11/02/24 11/02/24 11/03/24 21:25 23:21 06:10 WBC 9.35 RBC 3.39 L Hgb 9.0 L Hct 30.5 L MCV 90 MCH 26.5 L MCHC 29.5 L RDW 16.4 H Plt Count 269 MPV 9.4 Immature Gran % Neutrophils % Lymphocytes % Monocytes % Eosinophils % Basophils % Nucleated RBC % Absolute Neutrophils Absolute Lymphocytes Absolute Monocytes Absolute Eosinophils Absolute Basophils VBG pH VBG pCO2 VBG pO2 VBG HCO3 VBG Total CO2 VBG O2 Saturation VBG Base Excess Sodium 141 Potassium 3.8 Chloride 105 Carbon Dioxide 31.5 Anion Gap 4.5 BUN 12 Creatinine 0.8 Est GFR (CKD-EPI 2020) 91.15 Glucose 102 Calcium 8.7 Magnesium 1.9 Total Bilirubin 0.6 AST 15 ALT < 6 L Alkaline Phosphatase 108 Troponin I NT-Pro-B Natriuret Pep Total Protein 7.0 Albumin 2.0 L TSH COVID-19 Source Nasopharynx SARS-CoV-2 (PCR) Positive A Influenza Type A (PCR) Negative Influenza Type B (PCR) Negative RSV (PCR) Negative MRSA (TEM-PCR) Negative Time Spent with Patient Time Spent with Patient: 35-49 minutes Time was spent: preparing to see the patient(eg.review tests), obtaining and/or reviewing separately otained hiistory, ordering medications,tests, procedures, indepentently interpreting results and counseling the patient
[2024-11-03] MEDS: Lidocaine 5% Patch 1 PATCH TD (14:07)
[2024-11-03] MEDS: oxyCODONE 5 MG TAB PO ×2 (14:08→21:01)
[2024-11-03 18:03] VITALS: BP 150/89; PULSE 76; RESP 16; TEMP 36.1; O2SAT 94
[2024-11-03 19:38] VITALS: BP 148/77; PULSE 81; RESP 20; TEMP 36; O2SAT 91
[2024-11-03] MEDS: Atorvastatin 40 MG TAB PO (20:01)
[2024-11-03] MEDS: Amoxicillin 875/Clav. 125 TAB PO (20:02)
[2024-11-03] MEDS: traZODone 100 MG TAB PO (20:02)
[2024-11-03] MEDS: Finasteride 5 MG TAB PO (20:02)
[2024-11-03] MEDS: LORazepam 0.5 MG TAB PO (21:16)
[2024-11-04] MEDS: Metoprolol 12.5 MG TAB 25 MG PO ×2 (05:48→12:06)
[2024-11-04 06:40] LABS: HCT 30.7 % (40.0-50.0); HGB 9.2 g/dL (13.5-17.5); MCH 26.7 pg (27.0-33.0); MCV 89 fL (80-95); Platelet Count 274 10^3/uL (130-400); RBC 3.45 10^6/uL (4.36-5.78); RDW 16.9 % (11.8-14.1); RDW-SD 54.2 fL; WBC 7.78 10^3/uL (4.4-10.8)
[2024-11-04 07:06] LABS: ALT 8 U/L (16-63); AST 14 U/L (15-37); Albumin 1.9 g/dL (3.4-5.0); Alkaline Phosphatase 106 U/L (46-116); Anion Gap 5.6 mmol/L (3-11); BUN 12 mg/dL (7-18); Bilirubin, Total 0.6 mg/dL (0.2-1.0); CO2 28.4 mmol/L (21.0-32.0); CREATININE 0.8 mg/dL (0.70-1.30); Calcium 8.6 mg/dL (8.5-10.1); Chloride 106 mmol/L (98-107); Estimated GFR 91.15 (mL/min/1.73m2); Glucose 86 mg/dL (74-106); Magnesium 1.7 mg/dL (1.8-2.4); Potassium 3.7 mmol/L (3.5-5.1); Sodium 140 mmol/L (136-145); Total Protein 6.7 g/dL (6.4-8.2)
[2024-11-04 07:35] VITALS: BP 133/85; PULSE 73; RESP 18; TEMP 36.5; O2SAT 95
[2024-11-04] MEDS: Venlafaxine 75 MG TAB PO (07:49)
[2024-11-04] MEDS: Cholecalciferol (Vitamin D3) 1,000 UNIT TAB 1000 UNITS PO (07:49)
[2024-11-04] MEDS: Omeprazole 20 MG CAPCR PO (07:49)
[2024-11-04] MEDS: Amoxicillin 875/Clav. 125 TAB PO (07:49)
[2024-11-04] MEDS: Sennosides/Docusate Sodium TAB 2 TAB PO (07:49)
[2024-11-04] MEDS: oxyCODONE 5 MG TAB PO ×2 (07:50→12:10)
[2024-11-04] MEDS: Normal Saline Flush 10 ML SYR IVP (07:50)
[2024-11-04] MEDS: guaiFENesin 600 MG TABCR 1200 MG PO (07:50)
[2024-11-04] MEDS: risperiDONE 1 MG TAB PO (07:50)
[2024-11-04] MEDS: Multivitamin w/Minerals TAB 1 TAB PO (07:50)
[2024-11-04] MEDS: Chlorhexidine Gluconate 0.12% Mouthwash 480 ML BTL 15 ML UD (07:59)
--- NOTE | 2024-11-04 08:37 | PTTR_ITS ---
PT Notes Visit Reasons: Aspiration pneumonia, Acute hypercapnic respirator Inpatient Physical Therapy Treatment Note [facility] Date: 11/04/24 PRECAUTIONS:fall, standard SUBJECTIVE: Bijan states that he is feeling well, but tired. He's agreeable to PT intervention. OBJECTIVE: ? PAIN: denies ? BED MOBILITY/TRANSFERS? Sit-stand: CGA? Stand-sit: CGA with cues for hand placement ? Therapeutic Exercises (13417h7): Direct one-on-one instruction in therapeutic exercises to develop strength, endurance, range of motion and flexibility. ? Exercises ? Instructed in the following seated exercises: LAQ 20x each seated march 20x hand flicks 10x declined standing exercises due to fatigue Ambulation ? Assistive Device: FWW? Weight bearing: full Assist: min A ? Distance:? 50' x1. Encouraged second rep following seated exercise, although patient reports significant fatigue. ? Deviation: shuffling gait initially, improving with distance. Reduced stride length on the left vs right. ? Provided skilled instruction in proper exercise performance ASSESSMENT/PLAN:? Agreeable to participation today, and able to tolerate 50' ambulation with FWW and min A, although with significant fatigue. Unable to tolerate further ambulation, but agreeable to attempts later today. TREATMENT CODE/TIME: [id number] (13994) DISCHARGE RECOMMENDATION: [facility]
--- NOTE | 2024-11-04 11:47 | W.PM.PROGNOT ---
Date of Service Date of service: 11/04/24 Time of Service: 11:47 Assessment and Plan Assessment and plan (1) Aspiration pneumonia: Status: Acute Assessment and plan: downstep to augmentin day 08/22 has been weaned off oxygen aspiration precautions mucinex albuterol prn (2) Acute hypercapnic respiratory failure: Status: Acute Assessment and plan: resolved and oxygenating well on room air. (3) Hypokalemia: Status: Acute Assessment and plan: resolved after repletion (4) Hypomagnesemia: Status: Acute Assessment and plan: repleted, and normalized (5) Atrial fibrillation: Status: Chronic Assessment and plan: Not on anticoagulation with patient on Lovenox during this hospital stay. DVT prophylaxis. Patient does have chronic anemia which is normocytic. (6) CHF (congestive heart failure): Status: Chronic Assessment and plan: stable with no exacerbation Continue outpatient medical therapy. (7) Essential (primary) hypertension: Status: Chronic Assessment and plan: Continue outpatient medical therapy adjust as needed. (8) Dementia with behavioral disturbance: Status: Chronic Assessment and plan: Continue outpatient medical therapy for behavioral abnormalities and mood. no behavioral disturbances. (9) Hyperlipidemia: Status: Chronic Assessment and plan: Continue outpatient statin therapy. (10) Chronic low back pain: Status: Chronic Assessment and plan: Patient is on chronic pain management for back pain with prescribed narcotics at a low dose with infrequent use of oxycodone and having previously been on Suboxone. He also receives benzodiazepine with close monitoring in the senior living. VPMS was reviewed and consistent with his prescription pattern. Patient is supervising her at home and is at low risk for misuse of his medications. Urine drug screen was not indicated. Continue his senior living medical regimen with caution watching for respiratory depression especially with his acute respiratory disease. He is approaching palliative care. (11) ASCVD (arteriosclerotic cardiovascular disease): Status: Chronic Assessment and plan: Continue outpatient medical therapy and monitor for exacerbation. (12) Tobacco use disorder: Status: Chronic Assessment and plan: Patient does have on his history being an every day smoker this may not be the case presently with him in the senior living and having his recent respiratory illness. (13) Anemia: Status: Chronic Assessment and plan: Chronic and normocytic and stable. No further evaluation as an inpatient. Subjective Subjective Patient reports: no new complaints, tolerating liquids well, tolerating a regular diet, voiding w/o difficulty and afebrile; denies shortness of breath Objective Last Vital Signs Temp 36.5 C 11/04/24 07:35 Pulse 73 11/04/24 07:35 Resp 18 11/04/24 07:35 BP 133/85 11/04/24 07:35 Pulse Ox 95 11/04/24 07:35 Laboratory Results - last 24 hr 11/04/24 06:10 WBC 7.78 RBC 3.45 L Hgb 9.2 L Hct 30.7 L MCV 89 MCH 26.7 L MCHC 30.0 L RDW 16.9 H Plt Count 274 MPV 10.0 Sodium 140 Potassium 3.7 Chloride 106 Carbon Dioxide 28.4 Anion Gap 5.6 BUN 12 Creatinine 0.8 Est GFR (CKD-EPI 2020) 91.15 Glucose 86 Calcium 8.6 Magnesium 1.7 L Total Bilirubin 0.6 AST 14 L ALT 8 L Alkaline Phosphatase 106 Total Protein 6.7 Albumin 1.9 L
--- NOTE | 2024-11-04 12:08 | CMDISCH_ITS ---
Date of service: 11/04/24 Time of Service: 12:08 LACE Index Scoring Tool Questions: Length of Stay (in days): 2 Was the patient admitted via the E.D.?: Yes Comorbidities: Cerebrovascular Disease and Congestive Heart Failure E.D. Visits: 4 Answers: Total Score: 12 Risk of Readmission: High Risk Care Management Discharge Plan Reason for Hospitalization: Aspiration pneumonia, acute hypercapnic respirator Discharge Plan: Bijan will be discharged back to [facility]. He will follow up with the facility providers and continue per his plan of care. He will transport via [facility] as coordinated by CM. Patient/Family Education Needs: Review of discharge instructions, activity, limitations, and plan of care. Discuss Ask Me Three. Services Needed at Discharge: Custodial Facility SDOH Health Related Social Needs: No Data to Display
--- NOTE | 2024-11-04 12:09 | DSE_ITS ---
Date of service: 11/04/24 Time of Service: 12:09 DS: Diagnosis Discharge Diagnosis (1) Aspiration pneumonia: Status: Acute (2) Acute hypercapnic respiratory failure: Status: Acute (3) Hypokalemia: Status: Acute (4) Hypomagnesemia: Status: Acute (5) Atrial fibrillation: Status: Chronic (6) CHF (congestive heart failure): Status: Chronic (7) Essential (primary) hypertension: Status: Chronic (8) Dementia with behavioral disturbance: Status: Chronic (9) Hyperlipidemia: Status: Chronic (10) Chronic low back pain: Status: Chronic (11) ASCVD (arteriosclerotic cardiovascular disease): Status: Chronic (12) Tobacco use disorder: Status: Chronic (13) Anemia: Status: Chronic Discharge Plan Disposition Patient Disposition: [facility]) Condition: Improving Discharge Details Reason For Visit: Aspiration pneumonia, Acute hypercapnic respirator Admit Date/Time: 11/02/24 19:08 Admit Provider: Alo Cortez Attending Provider: Alo Cortez Primary Care Provider: Brijesh Elliott Hospital Course Hospital Course: This is a 78-year-old male patient past medical history significant for dementia, recent COVID infection, atrial fibrillation, hypertension who presented to the emergency department with increased shortness of breath, cough and hypoxia noted after eating a meal. He received a nebulizer treatment and was placed on BiPAP by EMS. His oxygenation improved and he was able to cough up some mucus returning to his baseline with marked improvement in his symptoms. His workup in the emergency department did show concern for right middle lobe pneumonia which is consistent with his history suspicious for aspiration. He was started on Unasyn and doxycycline and admitted to the medical surgical unit for further management. Following the medical surgical unit he remained medically stable oxygenating in the low to mid 90s on room air with no cough or respiratory distress or evidence of any further choking episodes. He has been down stepped to Augmentin. He has been really ambulated. He is eating and drinking. He is stable for discharge back to the [facility] . He will be referred to speech therapy for bedside swallow evaluation outpatient. he will complete a 5 day course of augmentin to treat his aspiration pneumonia. he should resume usual medications as previously prescribed. Home Meds and New Rx's Prescriptions: New amoxicillin-pot clavulanate 875-125 mg Tablet 1 tab PO BID Qty: 5 0RF Continued atorvastatin 40 mg tablet 40 mg PO HS omeprazole 20 mg capsule,delayed release(DR/EC) 20 mg PO DAILY trazodone 100 MG tablet 100 mg PO HS finasteride 5 mg tablet 5 mg PO HS oxycodone 5 mg capsule 5 mg PO Q6H PRN PRN (Reason: severe pain (scale score 7-10)) risperidone [Risperdal] 1 mg tablet 1 mg PO BID venlafaxine 75 mg tablet 75 mg PO DAILY cholecalciferol (vitamin D3) 25 mcg (1,000 unit) capsule 1,000 unit PO DAILY metoprolol tartrate 25 mg tablet 25 mg PO Q6H polyethylene glycol 3350 [Miralax] 17 gram powder in packet 17 g PO BID PRN PRN sennosides-docusate sodium [Senna-S] 8.6-50 mg tablet 2 tab PO BID lorazepam [Ativan] 0.5 mg tablet 0.5 mg PO Q8H PRN PRN (Reason: agitation) albuterol sulfate 90 mcg/actuation HFA aerosol inhaler 2 puff inhalation Q4H PRN PRN (Reason: wheezing) clindamycin phosphate [Cleocin T] 1 % lotion 1 applic topical BID Patient Comments: apply to perineum topically BID for rash chlorhexidine gluconate [Peridex] 0.12 % mouthwash 15 ml PO BID Patient Comments: swish and spit 15 mL BID after oral care magnesium hydroxide [Milk of Magnesia] 400 mg/5 mL suspension 30 ml PO DIRECTED PRN Patient Comments: give 30 mL by mouth as needed for no BM X3 days bisacodyl [Dulcolax (bisacodyl)] 10 mg suppository 10 mg [place] DIRECTED PRN Patient Comments: insert 1 suppository rectally as needed if no results from milk of magnesia after 24 hours sodium phosphates 19-7 gram/118 mL enema 118 ml VA DIRECTED PRN Patient Comments: insert one application rectally as needed if no results from bisacodyl suppository after 24 hours GlucaGen HypoKit 1 mg recon soln 1 mg IM DIRECTED PRN Patient Comments: Inject 1 mg IM as needed for BG less than 70 and patient is not arousable, conscious or able to swallow. Repeat BG in 15 minutes glucose gel 1 dose PO DIRECTED PRN Patient Comments: 77.4 % gel. Give one dose by mouth as needed for BG les than 70 if patient is arousable, conscious and able to swallow. Repeat BG in 15 min Combivent Respimat 20-100 mcg/actuation mist 1 puff inhalation Q6H PRN PRN (Reason: bronchospasm) nitroglycerin 0.4 mg tablet, sublingual 0.4 mg sublingual Q5 MIN PRN X3 PRN Rx Instructions: do not exceed 3 doses per episode lidocaine [Aspercreme (lidocaine)] 4 % adhesive patch,medicated 1 patch topical DAILY PRN Super Thera Ada M Tablet 1 tab PO DAILY guaifenesin [Mucinex] 1,200 mg tablet extended release 12hr 1,200 mg PO BID acetaminophen 325 mg capsule 975 mg PO .Q8 PRN Discontinued cefpodoxime 200 mg tablet 200 mg PO BID Qty: 7 0RF Rx Instructions: must administer with a meal/food Discharge Instructions Instructions: Pneumonia, Adult (DC) Additional Instructions: Complete course of antibiotics as directed Resume the rest of your medications as previously prescribed Continue routine [facility] care and activities dietary modifications as needed, aspiration precautions. Referrals: Brijesh Elliott [Primary Care Provider] - Sangeetha Rm [employer] [SPEECH LANGUAGE PATHOLOGIST] - Activity:: Activity as Tolerated Equipment/Supplies:: No Equipment Needed Diet:: As Tolerated Discharge Orders Discharge Orders: Discharge Order (Routine); Ordered 11/04/24 Ordered By: Brittani Sanz DS: Summary Time Spent with Patient providing and/or coordinating discharge services: Greater than 30 minutes Status at Discharge Functional status at discharge: independent ambulation Overall status at discharge: patient is back to baseline Mental Status: other (demented and at baseline) Speech and Movement: agitated (at times) Mood: other (demented and at baseline) Affect: normal affect Quality:SDOH Health Related Social Needs: No Data to Display Exam Narrative Exam Narrative: Elderly male of stated age no acute distress head is atraumatic eyes nonicteric noninjected oral mucosas moist neck supple full range of motion respirations even unlabored breath sounds clear no wheezing cardiovascular regular rate and rhythm respirations even and unlabored abdomen benign moves all extremities bilateral peripheral edema extremity neurologic awake alert Psych Mental Status: other (demented and at baseline) Speech and Movement: agitated (at times) Mood: other (demented and at baseline) Affect: normal affect DS: Data Vitals/I&O Vitals and I&O: Vital Signs Temperature 36.5 C 11/04/24 07:35 Temperature Source Temporal Artery Scan 11/04/24 07:35 Pulse 73 11/04/24 07:35 Pulse 99 H 11/02/24 20:50 Respiratory Rate 18 11/04/24 07:35 Respiratory Effort Normal 11/02/24 21:47 Respiratory Depth Normal 11/02/24 21:47 Respiratory Pattern Normal 11/02/24 21:47 Blood Pressure 133/85 11/04/24 07:35 Blood Pressure Mean 101 11/04/24 07:35 Pulse Oximetry 95 11/04/24 07:35 Oxygen Delivery Method Room Air 11/04/24 07:35 Oxygen Flow Rate 0 11/04/24 07:35 Pain Level 9 11/04/24 07:50 Comment rn notified 11/04/24 07:35 Intake & Output 11/03/24 11/04/24 11/04/24 23:59 11:59 23:59 Intake Total 300 / 620 300 / 300 Balance 300 / 620 300 / 300 Intake: IV 300 / 620 100 / 100 Oral 200 / 200 Other: Urine Color [place] Yellow Urine Appearance Hematuria Clear Comment pT clean of urine at this time Stool Size Moderate Stool Characteristics Liquid Soft Brown Brown Data Completed and Pending Labs on day of discharge: Labs from last 24 hours 11/04/24 06:10: WBC 7.78, RBC 3.45 L, Hgb 9.2 L, Hct 30.7 L, MCV 89, MCH 26.7 L, MCHC 30.0 L, RDW 16.9 H, Plt Count 274, MPV 10.0, Sodium 140, Potassium 3.7, Chloride 106, Carbon Dioxide 28.4, Anion Gap 5.6, BUN 12, Creatinine 0.8, Est GFR (CKD-EPI 2020) 91.15, Glucose 86, Calcium 8.6, Magnesium 1.7 L, Total Bilirubin 0.6, AST 14 L, ALT 8 L, Alkaline Phosphatase 106, Total Protein 6.7, Albumin 1.9 L Preliminary micro results at discharge 11/02/24 18:06 Blood Blood Culture - Preliminary NO GROWTH 24 HOURS 11/02/24 17:47 Blood Blood Culture - Preliminary NO GROWTH 24 HOURS PFSH All Active Problems Hypokalemia (Acute) Hypomagnesemia (Acute) Decubitus ulcer of sacral area (Acute) Aspiration pneumonia (Acute) Hypomagnesemia (Acute) Hypokalemia (Acute) Dementia with behavioral disturbance (Chronic) Aspiration pneumonia (Acute) COVID-19 (Acute) Anemia (Chronic) CHF (congestive heart failure) (Chronic) Acute hypercapnic respiratory failure (Acute) Yeast infection of the skin (Acute) Acute respiratory failure with hypoxia and hypercarbia (Acute) Hemopneumothorax on left (Acute) Pain in joint, foot, left (Acute) Corns and callosities (Acute) Cellulitis (Acute) Venous (peripheral) insufficiency (Acute) PAD (peripheral artery disease) (Acute) Onychomycosis (Acute) Neuropathy (Acute) Atrial fibrillation (Chronic) Hearing loss (Acute) with subjective 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 Mononeuritis (Acute) Hyperlipidemia (Chronic) Essential (primary) hypertension (Chronic) BPH (benign prostatic hyperplasia) (Chronic) ADHD (Acute) ASCVD (arteriosclerotic cardiovascular disease) (Chronic) Long-term current use of opiate analgesic (Acute) Tobacco use disorder (Chronic) Venous stasis dermatitis (Acute) Peripheral edema (Acute) 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 Frequent falls (Acute) Medical History Viral meningitis Complete rotator cuff tear right Cervical spondylosis Bursitis 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 Exposure to Agent [place] Social History Smoking/Tobacco Use Status: Current every day Tobacco Type: cigarettes Smoking packs per day: 1 Smoking cigarettes per day: 20.0 Years smoked: 50 Smoking pack- years: 50.00 Smoking risk assessment performed?: Yes Alcohol Intake: never Drug use: Never Substance use type: does not use Housing: [facility] Do you feel safe at home: Yes Do you feel safe in your relationship?: Yes Time Spent with Patient Time Spent with Patient: 45-69 minutes Time was spent: preparing to see the patient(eg.review tests), obtaining and/or reviewing separately otained hiistory, ordering medications,tests, procedures, indepentently interpreting results and care coordination
== END 2024-11-04 13:25 | disposition skilled nursing facility (03) | DRG 177 ==
LOC: ER 21:19 → MS 21:45
PROVIDERS: Admitting Provider Family Medicine; Emergency Provider Student in an Organized Health Care Education/Training Program; PCP Internal Medicine; Responsible Provider Nurse Practitioner Acute Care; Visit Provider Family Medicine
DX: J69.0 Pneumonitis due to inhalation of food and vomit (principal); J96.02 Acute respiratory failure with hypercapnia; I48.11 Longstanding persistent atrial fibrillation; F03.918 Unspecified dementia, unspecified severity, with other behavioral disturbance; J44.0 Chronic obstructive pulmonary disease with (acute) lower respiratory infection; E83.42 Hypomagnesemia; E87.6 Hypokalemia; I11.0 Hypertensive heart disease with heart failure; I50.9 Heart failure, unspecified; E78.5 Hyperlipidemia, unspecified; G89.29 Other chronic pain; I25.10 Atherosclerotic heart disease of native coronary artery without angina pectoris; F17.210 Nicotine dependence, cigarettes, uncomplicated; M54.50 Low back pain, unspecified; Z66 Do not resuscitate; I73.9 Peripheral vascular disease, unspecified; I87.2 Venous insufficiency (chronic) (peripheral); G83.14 Monoplegia of lower limb affecting left nondominant side; G62.9 Polyneuropathy, unspecified; D64.9 Anemia, unspecified; N40.0 Benign prostatic hyperplasia without lower urinary tract symptoms; Z79.891 Long term (current) use of opiate analgesic; G57.02 Lesion of sciatic nerve, left lower limb; R29.6 Repeated falls; F10.91 Alcohol use, unspecified, in remission; M47.22 Other spondylosis with radiculopathy, cervical region
CPT/HCPCS: 00123; 36415; 80053; 82805; 85027; 87040; 87637; 87641; 93005; 96365; 96366; 96368; 97110; 97161; 99285; J1650; 71046; 83735; 83880; 84443; 84484; 85025; 93010; 99223; 99233; 99239; J0295; J3475; J3480; J3490

== ENCOUNTER → 2025-01-04 05:22 | Emergency (ER) | payer OTHER, SELFPAY ==
[2025-01-04 05:02] VITALS: BP 128/66; PULSE 97; RESP 20; TEMP 36.4
[2025-01-04 05:07] VITALS: BP 128/66; PULSE 97; RESP 20; TEMP 36.4
--- NOTE | 2025-01-04 05:11 | W.ED.GENAD ---
Discharge Plan Disposition Patient Disposition: [facility] Facility(SNF) Condition: Stable Discharge Details Clinical Impression: Comfort measures only status Primary Care Provider: Brijesh Elliott ED Provider: Ana Luisa Trinidad Home Meds and New Rx's Prescriptions: No Action atorvastatin 40 mg tablet 40 mg PO HS omeprazole 20 mg capsule,delayed release(DR/EC) 20 mg PO DAILY trazodone 100 MG tablet 100 mg PO HS finasteride 5 mg tablet 5 mg PO HS oxycodone 5 mg capsule 5 mg PO Q6H PRN PRN (Reason: severe pain (scale score 7-10)) risperidone [Risperdal] 1 mg tablet 1 mg PO BID venlafaxine 75 mg tablet 75 mg PO DAILY cholecalciferol (vitamin D3) 25 mcg (1,000 unit) capsule 1,000 unit PO DAILY metoprolol tartrate 25 mg tablet 25 mg PO Q6H polyethylene glycol 3350 [Miralax] 17 gram powder in packet 17 g PO BID PRN PRN sennosides-docusate sodium [Senna-S] 8.6-50 mg tablet 2 tab PO BID lorazepam [Ativan] 0.5 mg tablet 0.5 mg PO Q8H PRN PRN (Reason: agitation) albuterol sulfate 90 mcg/actuation HFA aerosol inhaler 2 puff inhalation Q4H PRN PRN (Reason: wheezing) clindamycin phosphate [Cleocin T] 1 % lotion 1 applic topical BID Patient Comments: apply to perineum topically BID for rash chlorhexidine gluconate [Peridex] 0.12 % mouthwash 15 ml PO BID Patient Comments: swish and spit 15 mL BID after oral care magnesium hydroxide [Milk of Magnesia] 400 mg/5 mL suspension 30 ml PO DIRECTED PRN Patient Comments: give 30 mL by mouth as needed for no BM X3 days bisacodyl [Dulcolax (bisacodyl)] 10 mg suppository 10 mg ID DIRECTED PRN Patient Comments: insert 1 suppository rectally as needed if no results from milk of magnesia after 24 hours sodium phosphates 19-7 gram/118 mL enema 118 ml ID DIRECTED PRN Patient Comments: insert one application rectally as needed if no results from bisacodyl suppository after 24 hours GlucaGen HypoKit 1 mg recon soln 1 mg IM DIRECTED PRN Patient Comments: Inject 1 mg IM as needed for BG less than 70 and patient is not arousable, conscious or able to swallow. Repeat BG in 15 minutes glucose gel 1 dose PO DIRECTED PRN Patient Comments: 77.4 % gel. Give one dose by mouth as needed for BG les than 70 if patient is arousable, conscious and able to swallow. Repeat BG in 15 min Combivent Respimat 20-100 mcg/actuation mist 1 puff inhalation Q6H PRN PRN (Reason: bronchospasm) nitroglycerin 0.4 mg tablet, sublingual 0.4 mg sublingual Q5 MIN PRN X3 PRN Rx Instructions: do not exceed 3 doses per episode lidocaine [Aspercreme (lidocaine)] 4 % adhesive patch,medicated 1 patch topical DAILY PRN Super Thera Ada M Tablet 1 tab PO DAILY guaifenesin [Mucinex] 1,200 mg tablet extended release 12hr 1,200 mg PO BID acetaminophen 325 mg capsule 975 mg PO .Q8 PRN amoxicillin-pot clavulanate 875-125 mg Tablet 1 tab PO BID Qty: 5 0RF Discharge Instructions Additional Instructions: Mr Gio MARSHALL states his desires are comfort focused care with no life sustaining treatments, no transport to hospital for life sustaining treatments. He is comfortable at this time. HPI General Mode of arrival: EMS. Information obtained by: patient, EMS and old records reviewed. HPI Narrative: 79yo M with hx dementia, COPD, CHF, atrial fibrillation, hypertension, hyperlipidemia, ASCVD, PVD, presenting via EMS for hypoxia. Per EMS, nursing facility staff concerned about hypoxia this morning (O2 sat reportedly in 80's) and patient without other symptoms. Patient denies shortness of breath, chest pain, pain anywhere, or any concerns. He is unable to provide any medical history or describe the events of this morning. Medical history from chart review and medical records sent with patient. Related Data Home Medications ?Medication ?Instructions ?Recorded ?Confirmed trazodone 100 mg tablet 100 mg PO HS 08/09/13 11/02/24 atorvastatin 40 mg tablet 40 mg PO HS 02/06/23 11/02/24 omeprazole 20 mg capsule,delayed 20 mg PO DAILY 02/06/23 11/02/24 release finasteride 5 mg tablet 5 mg PO HS 06/03/24 11/02/24 oxycodone 5 mg capsule 5 mg PO Q6H PRN PRN severe pain 06/03/24 11/02/24 (scale score 7-10) ipratropium 20 mcg-albuterol 100 1 puff inhalation Q6H PRN PRN 08/07/24 11/02/24 mcg/actuation mist for inhalation bronchospasm (Combivent Respimat) nitroglycerin 0.4 mg sublingual 0.4 mg sublingual Q5 MIN PRN X3 PRN 08/07/24 11/02/24 tablet risperidone 1 mg tablet (Risperdal) 1 mg PO BID 10/19/24 11/02/24 venlafaxine 75 mg tablet 75 mg PO DAILY 10/19/24 11/02/24 cholecalciferol (vitamin D3) 25 1,000 unit PO DAILY 10/20/24 11/02/24 mcg (1,000 unit) capsule metoprolol tartrate 25 mg tablet 25 mg PO Q6H 10/20/24 11/02/24 polyethylene glycol 3350 17 gram 17 g PO BID PRN PRN 10/20/24 11/02/24 oral powder packet (Miralax) sennosides 8.6 mg-docusate sodium 2 tab PO BID 10/20/24 11/02/24 50 mg tablet (Senna-S) albuterol sulfate 90 mcg/actuation 2 puff inhalation Q4H PRN PRN 10/21/24 11/02/24 aerosol inhaler wheezing bisacodyl 10 mg rectal suppository 10 mg ID DIRECTED PRN 10/21/24 11/02/24 (Dulcolax (bisacodyl)) chlorhexidine gluconate 0.12 % 15 ml PO BID gingavitis 10/21/24 11/03/24 mouthwash (Peridex) clindamycin phosphate 1 % lotion 1 applic topical BID 10/21/24 11/02/24 (Cleocin T) glucagon 1 mg solution for 1 mg IM DIRECTED PRN 10/21/24 11/02/24 injection (GlucaGen HypoKit) glucose 1 dose PO DIRECTED PRN 10/21/24 11/02/24 lorazepam 0.5 mg tablet (Ativan) 0.5 mg PO Q8H PRN PRN agitation 10/21/24 11/02/24 magnesium hydroxide 400 mg/5 mL 30 ml PO DIRECTED PRN 10/21/24 11/02/24 oral suspension (Milk of Magnesia) sodium phosphates 19 gram-7 118 ml ID DIRECTED PRN 10/21/24 11/02/24 gram/118 mL enema acetaminophen 325 mg capsule 975 mg PO .Q8 PRN 11/02/24 11/02/24 guaifenesin 1,200 mg tablet, 1,200 mg PO BID 11/02/24 11/02/24 extended release 12 hr (Mucinex) lidocaine 4 % topical patch 1 patch topical DAILY PRN 11/02/24 11/02/24 (Aspercreme (lidocaine)) multivitamin,tx-minerals (Super 1 tab PO DAILY 11/02/24 11/02/24 Thera Ada M tablet) amoxicillin 875 mg-potassium 1 tab PO BID #5 tabs 11/04/24 clavulanate 125 mg tablet Previous Rx's ?Medication ?Instructions ?Recorded amoxicillin 875 mg-potassium 1 tab PO BID #5 tabs 11/04/24 clavulanate 125 mg tablet Allergies Allergy/AdvReac Type Severity Reaction Status Date / Time fluticasone Allergy Unknown Headache Verified 10/19/24 12:52 gabapentin Allergy Unknown Psychosis Verified 10/19/24 12:52 pregabalin Allergy Unknown Psychosis Verified 10/19/24 12:52 doxycycline AdvReac Intermediate vomiting Verified 10/19/24 12:52 morphine AdvReac Unknown Psychosis Verified 10/19/24 12:52 General Stated Complaint: RespSymp HAROLDO: 3 Review of Systems Narrative: see HPI Exam Narrative Exam Narrative: General: Alert, well appearing, well nourished, in no acute distress. Head: Normocephalic, atraumatic Neck: Trachea midline, ?Neck supple. ENT: ?MMM.? Cardiac: ?RRR, no murmurs appreciated Resp: No respiratory distress. CTAB. Abd: ?Soft, non-distended, nontender : ?No suprapubic tenderness. Course Vital Signs Vital signs: Vital Signs Temperature 36.4 C 01/04/25 05:02 Pulse 97 H 01/04/25 05:02 Respiratory Rate 20 01/04/25 05:02 Blood Pressure 128/66 01/04/25 05:02 Temperature 36.4 C 01/04/25 05:02 Pulse 97 H 01/04/25 05:02 Respiratory Rate 20 01/04/25 05:02 Blood Pressure 128/66 01/04/25 05:02 Blood Pressure Position Sitting 01/04/25 05:02 Oxygen Delivery Method Room Air 01/04/25 05:02 Oxygen Flow Rate 0 01/04/25 05:02 Medical Decision Making 79yo M with hx dementia, multiple chronic medical problems, presenting from [facility] for hypoxia. Per EMS, shelter staff checked O2 sat and it was in the 80's this morning, no other issues and patient with no distress. On arrival Mr. Mortensen denies shortness of breath, pain, or other complaints. Vital signs as measured reassuring however unable to get O2 sat to read (pt with cool extremities, clubbing on fingers). COLST reviewed; comfort-focused treatment (allow for natural ), no transfer to hopsital for life sustaining treatments, may transfer if comfort needs cannot be met in current location. Would not get ABG or VBG to assess oxygen status or further workup for hypoxia based on goals of care/COLST. As he appears to be entirely comfortable at this time, appropriate for transfer back to nursing facility. Discharged back to health and rehab. PFSH All Active Problems (Updated 01/04/25 @ 05:18 by Ana Luisa Trinidad MD) Comfort measures only status (Acute) Decubitus ulcer of sacral area (Acute) Aspiration pneumonia (Acute) Dementia with behavioral disturbance (Chronic) Aspiration pneumonia (Acute) Anemia (Chronic) CHF (congestive heart failure) (Chronic) Acute hypercapnic respiratory failure (Acute) Yeast infection of the skin (Acute) Acute respiratory failure with hypoxia and hypercarbia (Acute) Hemopneumothorax on left (Acute) Pain in joint, foot, left (Acute) Corns and callosities (Acute) Cellulitis (Acute) Venous (peripheral) insufficiency (Acute) PAD (peripheral artery disease) (Acute) Onychomycosis (Acute) Neuropathy (Acute) Atrial fibrillation (Chronic) Hearing loss (Acute) with subjective 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 Mononeuritis (Acute) Hyperlipidemia (Chronic) Essential (primary) hypertension (Chronic) BPH (benign prostatic hyperplasia) (Chronic) ADHD (Acute) ASCVD (arteriosclerotic cardiovascular disease) (Chronic) Long-term current use of opiate analgesic (Acute) Tobacco use disorder (Chronic) Venous stasis dermatitis (Acute) Peripheral edema (Acute) 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 Frequent falls (Acute) Medical History Viral meningitis Complete rotator cuff tear right Cervical spondylosis Bursitis 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
[2025-01-04 05:15] VITALS: BP 128/66; PULSE 97; RESP 20; TEMP 36.4
== END | disposition skilled nursing facility (03) ==
LOC: ER 05:32
PROVIDERS: Emergency Provider Student in an Organized Health Care Education/Training Program; PCP Internal Medicine
DX: Z51.5 Encounter for palliative care (principal); I11.0 Hypertensive heart disease with heart failure; I50.9 Heart failure, unspecified; I48.91 Unspecified atrial fibrillation; I25.10 Atherosclerotic heart disease of native coronary artery without angina pectoris; E78.5 Hyperlipidemia, unspecified; F17.210 Nicotine dependence, cigarettes, uncomplicated; Z79.899 Other long term (current) drug therapy
CPT/HCPCS: 99282

== ENCOUNTER 2025-01-08 18:53 | Outpatient (REF) | payer MEDICARE, SELFPAY ==
[2025-01-08 15:47] LABS: Anion Gap 4.0 mmol/L (3-11); BUN 21 mg/dL (7-18); CO2 31.0 mmol/L (21.0-32.0); Calcium 8.6 mg/dL (8.5-10.1); Chloride 101 mmol/L (98-107); Estimated GFR 98.81 (mL/min/1.73m2); Glucose 116 mg/dL (74-106); NT-proBNP 3052 pg/mL (<300); Potassium 4.4 mmol/L (3.5-5.1); Sodium 136 mmol/L (136-145)
== END 2025-01-08 18:54 | disposition home or self-care (01) ==
LOC: LBN 18:53
PROVIDERS: PCP Internal Medicine; Visit Provider Nurse Practitioner Adult Health
DX: I25.10 Atherosclerotic heart disease of native coronary artery without angina pectoris (principal)
CPT/HCPCS: 80048; 83880

== ENCOUNTER 2025-01-29 14:56 | Outpatient (REF) | payer MEDICARE, SELFPAY ==
[2025-01-29 23:44] LABS: Legionella Ag Detection Urine Negative (Negative)
== END 2025-01-29 14:57 | disposition home or self-care (01) ==
LOC: LBN 14:56
PROVIDERS: PCP Internal Medicine; Visit Provider Family Medicine
DX: A48.1 Legionnaires' disease (principal)
CPT/HCPCS: 87449

== ENCOUNTER 2025-01-31 16:02 | Outpatient (REF) | payer MEDICARE, SELFPAY | END 2025-01-31 16:03 | disposition home or self-care (01) | LOC: LBN 16:02 | PROVIDERS: PCP Internal Medicine; Visit Provider Family Medicine | DX: S71.102A Unspecified open wound, left thigh, initial encounter (principal) | CPT/HCPCS: 87077; 87070; 87186; 87205 ==

== ENCOUNTER → 2025-02-01 09:57 | Outpatient (BNVA) | payer MEDICARE, SELFPAY | PROVIDERS: PCP Internal Medicine; Referring Provider Internal Medicine; Visit Provider Physical Therapy Assistant | DX: L98.8 Other specified disorders of the skin and subcutaneous tissue (principal); B95.62 Methicillin resistant Staphylococcus aureus infection as the cause of diseases classified elsewhere; B95.2 Enterococcus as the cause of diseases classified elsewhere | CPT/HCPCS: 99215 ==

== ENCOUNTER 2025-02-04 20:38 | Emergency (ER) | payer MEDICARE, SELFPAY ==
[2025-02-04] VITALS (9 sets, daily range): BP systolic 99–115; BP diastolic 58–82; PULSE 84–125; RESP 22; TEMP 36.4; O2SAT 92–100
--- NOTE | 2025-02-04 20:15 | RT.EKG_ITS ---
APPROVED REPORT Exam: Resting ECG Reason for Exam: SOB/ int chest pain Patient Location: E HR:103 bpm ECG Measurements Heart Rate [address] [id number] P [id number] QRSd 87 QRS 19 QT 369 T 57 QTc 483 Conclusion Atrial fibrillation...V-rate 83-124, irreg A-activity Anterior infarct, old...Q >40mS, abnormal ST-T, V2-V5 No STEMI
--- NOTE | 2025-02-04 20:30 | DI.RAD_ITS ---
Exam(s) XR CHEST 2V PA LATERAL EXAM: XR CHEST 2V PA LATERAL CLINICAL HISTORY: COPD. TECHNIQUE: 2D digital imaging was performed. COMPARISON: CR XR PORTABLE CHEST AP from 10/19/2024 CR,XR XR CHEST 2V PA LATERAL from 10/20/2024 CR XR CHEST 2V PA LATERAL from 11/02/2024 FINDINGS: 2 views: Mild cardiomegaly again noted as well as mitral valve annulus calcification. The mediastinum is not widened. Dorsal fusion plate across midshaft left clavicle fracture again noted as are 2 fixation plates across left 7th and 8th rib fractures. There is also a mildly displaced fracture of the left 4th rib again noted. This is unchanged from 10/19/2024. Increased markings again noted in both lung vaz consistent with COPD findings. There is no evidence of pulmonary edema. Blunted left costophrenic angle is again noted either chronic pleural thickening or small pleural effusion. IMPRESSION: Cardiomegaly. COPD. Small left pleural effusion versus chronic left pleural thickening in someone with multiple left-sided rib fracture history. There are no Sindi B lines to suggest pulmonary edema DATA REPOSITORY: RADIATION DOSE DELIVERED:
[2025-02-04] MEDS: Albuterol/Ipratropium 3 ML UPD VIAL UPD (20:58)
[2025-02-04] MEDS: methylPREDNISolone SUCC 125 MG VIAL IVP (20:59)
--- NOTE | 2025-02-04 21:11 | W.ED.GENAD ---
Discharge Plan Disposition Patient Disposition: Home Condition: Stable Discharge Details Clinical Impression: COPD exacerbation, Anemia, Compression fracture of T12 vertebra Primary Care Provider: Brijesh Elliott ED Provider: Mily King Home Meds and New Rx's Prescriptions: New prednisone 20 mg tablet 40 mg PO DAILY 4 Days Qty: 8 0RF Rx Instructions: Start 02/05/2025, take two pills daily for 4 days azithromycin 250 mg tablet 250 mg PO DAILY 4 Days Qty: 4 0RF Rx Instructions: start on day 2 of therapy (02/05/2025) No Action atorvastatin 40 mg tablet 40 mg PO HS omeprazole 20 mg capsule,delayed release(DR/EC) 20 mg PO DAILY trazodone 100 MG tablet 100 mg PO HS finasteride 5 mg tablet 5 mg PO HS oxycodone 5 mg capsule 5 mg PO Q6H PRN PRN (Reason: severe pain (scale score 7-10)) risperidone [Risperdal] 1 mg tablet 1 mg PO BID venlafaxine 75 mg tablet 75 mg PO DAILY cholecalciferol (vitamin D3) 25 mcg (1,000 unit) capsule 1,000 unit PO DAILY metoprolol tartrate 25 mg tablet 25 mg PO Q6H polyethylene glycol 3350 [Miralax] 17 gram powder in packet 17 g PO BID PRN PRN sennosides-docusate sodium [Senna-S] 8.6-50 mg tablet 2 tab PO BID lorazepam [Ativan] 0.5 mg tablet 0.5 mg PO Q8H PRN PRN (Reason: agitation) albuterol sulfate 90 mcg/actuation HFA aerosol inhaler 2 puff inhalation Q4H PRN PRN (Reason: wheezing) clindamycin phosphate [Cleocin T] 1 % lotion 1 applic topical BID Patient Comments: apply to perineum topically BID for rash chlorhexidine gluconate [Peridex] 0.12 % mouthwash 15 ml PO BID Patient Comments: swish and spit 15 mL BID after oral care magnesium hydroxide [Milk of Magnesia] 400 mg/5 mL suspension 30 ml PO DIRECTED PRN Patient Comments: give 30 mL by mouth as needed for no BM X3 days bisacodyl [Dulcolax (bisacodyl)] 10 mg suppository 10 mg IL DIRECTED PRN Patient Comments: insert 1 suppository rectally as needed if no results from milk of magnesia after 24 hours sodium phosphates 19-7 gram/118 mL enema 118 ml IL DIRECTED PRN Patient Comments: insert one application rectally as needed if no results from bisacodyl suppository after 24 hours GlucaGen HypoKit 1 mg recon soln 1 mg IM DIRECTED PRN Patient Comments: Inject 1 mg IM as needed for BG less than 70 and patient is not arousable, conscious or able to swallow. Repeat BG in 15 minutes glucose gel 1 dose PO DIRECTED PRN Patient Comments: 77.4 % gel. Give one dose by mouth as needed for BG les than 70 if patient is arousable, conscious and able to swallow. Repeat BG in 15 min Combivent Respimat 20-100 mcg/actuation mist 1 puff inhalation Q6H PRN PRN (Reason: bronchospasm) nitroglycerin 0.4 mg tablet, sublingual 0.4 mg sublingual Q5 MIN PRN X3 PRN Rx Instructions: do not exceed 3 doses per episode lidocaine [Aspercreme (lidocaine)] 4 % adhesive patch,medicated 1 patch topical DAILY PRN Super Thera Ada M Tablet 1 tab PO DAILY guaifenesin [Mucinex] 1,200 mg tablet extended release 12hr 1,200 mg PO BID acetaminophen 325 mg capsule 975 mg PO .Q8 PRN amoxicillin-pot clavulanate 875-125 mg Tablet 1 tab PO BID Qty: 5 0RF sulfamethoxazole-trimethoprim [Bactrim DS] 800-160 mg tablet 1 tab PO BID Rx Instructions: for 10 days, starting 02/04/2025 Enema 19-7 gram/118 mL enema 118 ml IL DAILY PRN furosemide [Lasix] 20 mg tablet 20 mg PO DAILY Discharge Instructions Instructions: COPD Exacerbation, Adult ED Additional Instructions: You were seen in the emergency department today for evaluation of shortness of breath that is likely due to a COPD exacerbation. In our department a full physical examination performed, and received medications for management of your symptoms including a nebulizer, steroids, and magnesium. Your labs were otherwise quite reassuring with no sign of damage to your heart, though you are slightly more anemic than you were on our last check. You had a blood clot CT that was negative for blood clots but does show changes associated with your COPD. You also have a fracture of your T12 vertebral body, that does not appear to be new today. It does not require any intervention as you are not experiencing pain at this time. I have sent you home with 2 prescriptions to complete your course of antibiotics and steroids. Please take all of the medication until it is gone, even if you start to feel better. Please follow-up with your primary care provider in the next few days to discuss this visit and any symptoms that change, worsen, or persist. Thank you for allowing us to be part of your care. HPI General Mode of arrival: EMS. Date/Time Provider Initiated Documentation: 02/04/25 20:42. Limitations to Documentation: no limitations. Information obtained by: patient, EMS and old records reviewed. HPI Narrative: This is a 79-year-old male patient with a past medical history significant for CHF, COPD, atrial fibrillation not on anticoagulation, history of aspiration pneumonia, dementia, anemia, and CAD, who is presenting for evaluation of shortness of breath. The patient resides at [facility], and 1-1/2 hours ago reported sudden worsening of his work of breathing. He had wheezing and received a duo nebulizer from the EMS providers, who noted a room air sat of 96%. He denies chest pain, is reported to have been in his normal state of health prior to this event. Reports no significant cough or sputum change. Related Data Home Medications ?Medication ?Instructions ?Recorded ?Confirmed trazodone 100 mg tablet 100 mg PO HS 08/09/13 02/04/25 atorvastatin 40 mg tablet 40 mg PO HS 02/06/23 02/04/25 omeprazole 20 mg capsule,delayed 20 mg PO DAILY 02/06/23 02/04/25 release finasteride 5 mg tablet 5 mg PO HS 06/03/24 02/04/25 oxycodone 5 mg capsule 5 mg PO Q6H PRN PRN severe pain 06/03/24 02/04/25 (scale score 7-10) ipratropium 20 mcg-albuterol 100 1 puff inhalation Q6H PRN PRN 08/07/24 02/04/25 mcg/actuation mist for inhalation bronchospasm (Combivent Respimat) nitroglycerin 0.4 mg sublingual 0.4 mg sublingual Q5 MIN PRN X3 PRN 08/07/24 02/04/25 tablet risperidone 1 mg tablet (Risperdal) 1 mg PO BID 10/19/24 02/04/25 venlafaxine 75 mg tablet 75 mg PO DAILY 10/19/24 02/04/25 cholecalciferol (vitamin D3) 25 1,000 unit PO DAILY 10/20/24 02/04/25 mcg (1,000 unit) capsule metoprolol tartrate 25 mg tablet 25 mg PO Q6H 10/20/24 02/04/25 polyethylene glycol 3350 17 gram 17 g PO BID PRN PRN 10/20/24 02/04/25 oral powder packet (Miralax) sennosides 8.6 mg-docusate sodium 2 tab PO BID 10/20/24 02/04/25 50 mg tablet (Senna-S) albuterol sulfate 90 mcg/actuation 2 puff inhalation Q4H PRN PRN 10/21/24 02/04/25 aerosol inhaler wheezing bisacodyl 10 mg rectal suppository 10 mg IL DIRECTED PRN 10/21/24 02/04/25 (Dulcolax (bisacodyl)) chlorhexidine gluconate 0.12 % 15 ml PO BID gingavitis 10/21/24 02/04/25 mouthwash (Peridex) clindamycin phosphate 1 % lotion 1 applic topical BID 10/21/24 02/04/25 (Cleocin T) glucagon 1 mg solution for 1 mg IM DIRECTED PRN 10/21/24 02/04/25 injection (GlucaGen HypoKit) glucose 1 dose PO DIRECTED PRN 10/21/24 02/04/25 lorazepam 0.5 mg tablet (Ativan) 0.5 mg PO Q8H PRN PRN agitation 10/21/24 02/04/25 magnesium hydroxide 400 mg/5 mL 30 ml PO DIRECTED PRN 10/21/24 02/04/25 oral suspension (Milk of Magnesia) sodium phosphates 19 gram-7 118 ml IL DIRECTED PRN 10/21/24 02/04/25 gram/118 mL enema acetaminophen 325 mg capsule 975 mg PO .Q8 PRN 11/02/24 02/04/25 guaifenesin 1,200 mg tablet, 1,200 mg PO BID 11/02/24 02/04/25 extended release 12 hr (Mucinex) lidocaine 4 % topical patch 1 patch topical DAILY PRN 11/02/24 02/04/25 (Aspercreme (lidocaine)) multivitamin,tx-minerals (Super 1 tab PO DAILY 11/02/24 02/04/25 Thera Ada M tablet) amoxicillin 875 mg-potassium 1 tab PO BID #5 tabs 11/04/24 02/04/25 clavulanate 125 mg tablet Held on 02/04/25. Instructions: Pt Stopped/Never Started azithromycin 250 mg tablet 250 mg PO DAILY 4 days #4 tabs 02/04/25 furosemide 20 mg tablet (Lasix) 20 mg PO DAILY 02/04/25 02/04/25 prednisone 20 mg tablet 40 mg (2 x 20 mg) PO DAILY 4 days 02/04/25 #8 tabs sodium phosphates 19 gram-7 118 ml IL DAILY PRN 02/04/25 02/04/25 gram/118 mL enema (Enema) sulfamethoxazole 800 1 tab PO BID 02/04/25 02/04/25 mg-trimethoprim 160 mg tablet (Bactrim DS) Previous Rx's ?Medication ?Instructions ?Recorded amoxicillin 875 mg-potassium 1 tab PO BID #5 tabs 11/04/24 clavulanate 125 mg tablet Held on 02/04/25. Instructions: Pt Stopped/Never Started azithromycin 250 mg tablet 250 mg PO DAILY 4 days #4 tabs 02/04/25 prednisone 20 mg tablet 40 mg (2 x 20 mg) PO DAILY 4 days 02/04/25 #8 tabs Allergies Allergy/AdvReac Type Severity Reaction Status Date / Time fluticasone Allergy Unknown Headache Verified 02/04/25 20:50 gabapentin Allergy Unknown Psychosis Verified 02/04/25 20:50 pregabalin Allergy Unknown Psychosis Verified 02/04/25 20:50 doxycycline AdvReac Intermediate vomiting Verified 02/04/25 20:50 morphine AdvReac Unknown Psychosis Verified 02/04/25 20:50 General Stated Complaint: SOB HAROLDO: 3 Exam Narrative Exam Narrative: Gen: Awake and alert, in no apparent distress HEENT: Non-icteric sclera Neck: Supple Lungs: No apparent respiratory distress, normal respiratory effort, though the patient does have expiratory wheezing throughout all lung vaz. CV: Appears well perfused, heart with regular rate and rhythm, strong distal pulses. Abdomen: Non-distended, soft, nontender MSK: Moves 4 extremities without apparent limitation in ROM. No unilateral calf swelling or tenderness, trace bilateral peripheral edema Skin: Visualized skin without rashes, cyanosis. Neuro: Normal Gait, no obvious focal deficits or facial asymmetry. Speaks in full, clear sentences. Psych: Appropriate for situation. Course Vital Signs Vital signs: Vital Signs Temperature 36.4 C 02/04/25 20:38 Pulse 120 H 02/04/25 20:38 Respiratory Rate 22 02/04/25 20:38 Blood Pressure 115/82 02/04/25 20:38 Pulse Oximetry 100 02/04/25 20:38 Temperature 36.4 C 02/04/25 20:46 Temperature Source Oral 02/04/25 20:46 Pulse 125 H 02/04/25 20:46 Respiratory Rate 22 02/04/25 20:50 Respiratory Effort Normal 02/04/25 20:50 Respiratory Depth Normal 02/04/25 20:50 Respiratory Pattern Normal 02/04/25 20:50 Blood Pressure 115/82 02/04/25 20:46 Blood Pressure Position Sitting 02/04/25 20:46 Pulse Oximetry 100 02/04/25 20:46 Medical Decision Making This is a 79-year-old male patient presents for evaluation of shortness of breath. Differential includes but is not limited to URI, bronchitis, pneumonia including aspiration pneumonia given the sudden onset. Considered COPD exacerbation, heart failure exacerbation with pulmonary edema or pleural effusion. The patient has no history of thromboembolic disease though he does have an elevated heart rate and does not meet PERC criteria for PE rule out without testing. I considered ACS including STEMI, NSTEMI, unstable angina. Considered arrhythmia, metabolic electrolyte derangement, anemia, kidney and liver injury. Given the wheezing I will provide the patient with a second duo nebulizer as well as a dose of methylprednisolone. I obtained and reviewed an EKG, which shows an atrial fibrillation with a rate of 103, and Q waves in the anterior leads but no evidence of acute ischemia, interval abnormality or ectopy. We will obtain laboratory studies to include CBC, CMP, magnesium, troponin, BNP, D-dimer and Fluvid. I we will obtain an x-ray of the chest. -I reviewed the patient's laboratory studies, which show a leukocytosis to 12, anemia to 8.0 slightly increased from priors, no thrombocytopenia. D-dimer was quite elevated at 1400. The patient has no significant electrolyte derangements other than a low magnesium at 1.6 which was repleted intravenously. No evidence of kidney or liver dysfunction, troponin initial was negative, BNP is 2000 which is actually below the patient's baseline. COVID and influenza negative. Chest x-ray reviewed by myself showing interstitial changes, likely due to the patient's COPD per radiology, and I have a lower concern for kathleen pulmonary edema in this patient to has an improving BNP. However, with the elevated D-dimer and ongoing tachycardia I feel like a CT pulmonary embolism study is warranted, this will be obtained. I provided the patient with 500 mg of azithromycin for his COPD exacerbation. He reports improvement in his work of breathing after the above-noted medications, and has not required any supplemental oxygen while in the emergency department. Delta troponin negative, CT shows emphysematous changes and interstitial thickening, no pneumonia or pulmonary embolisms. The patient has a compression fracture of T12, which he was informed of and states is not new. He has not had worsening pain and I do not see an indication to pursue further imaging and this neuro intact patient without worsening of his symptoms. A prescription for the remainder of his steroid burst and azithromycin was sent to his pharmacy, and the patient will be transported back to his healthcare facility given his dementia requiring a medical lab director, his unhealed fractures. At this time, the patient has had a full medical evaluation and is safe for discharge to home. They are hemodynamically stable and tolerating PO. They are understanding of the follow-up plan and return precautions. They left our facility without incident. Mily King MD [facility] All Active Problems (Updated 02/04/25 @ 22:51 by Mily King MD) Compression fracture of T12 vertebra (Acute) Anemia (Chronic) COPD exacerbation (Acute) Decubitus ulcer of sacral area (Acute) Aspiration pneumonia (Acute) Dementia with behavioral disturbance (Chronic) Aspiration pneumonia (Acute) Anemia (Chronic) CHF (congestive heart failure) (Chronic) Acute hypercapnic respiratory failure (Acute) Yeast infection of the skin (Acute) Acute respiratory failure with hypoxia and hypercarbia (Acute) Hemopneumothorax on left (Acute) Pain in joint, foot, left (Acute) Corns and callosities (Acute) Cellulitis (Acute) Venous (peripheral) insufficiency (Acute) PAD (peripheral artery disease) (Acute) Onychomycosis (Acute) Neuropathy (Acute) Atrial fibrillation (Chronic) Hearing loss (Acute) with subjective 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 Mononeuritis (Acute) Hyperlipidemia (Chronic) Essential (primary) hypertension (Chronic) BPH (benign prostatic hyperplasia) (Chronic) ADHD (Acute) ASCVD (arteriosclerotic cardiovascular disease) (Chronic) Long-term current use of opiate analgesic (Acute) Tobacco use disorder (Chronic) Venous stasis dermatitis (Acute) Peripheral edema (Acute) 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 Frequent falls (Acute) Medical History (Updated 02/04/25 @ 22:51 by Mily King MD) Viral meningitis Complete rotator cuff tear right Cervical spondylosis Bursitis 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
[2025-02-04 21:12] LABS: Abs Immature Grans 0.07 10^3/uL (0.0-0.06); HCT 28.7 % (40.0-50.0); HGB 8.0 g/dL (13.5-17.5); Immature Grans % 0.6 %; MCH 24.1 pg (27.0-33.0); MCHC 27.9 % (32.0-36.0); MCV 86 fL (80-95); MPV 8.8 fL (8.0-11.0); Platelet Count 302 10^3/uL (130-400); RBC 3.32 10^6/uL (4.36-5.78); RDW 16.9 % (11.8-14.1); RDW-SD 53.0 fL; WBC 12.00 10^3/uL (4.4-10.8)
[2025-02-04 21:28] LABS: Hypochromasia 2+
[2025-02-04 21:30] LABS: ALT 13 U/L (16-63); AST 14 U/L (15-37); Albumin 1.8 g/dL (3.4-5.0); Alkaline Phosphatase 112 U/L (46-116); Anion Gap 3.0 mmol/L (3-11); BUN 23 mg/dL (7-18); Bilirubin, Total 0.3 mg/dL (0.2-1.0); CO2 33.0 mmol/L (21.0-32.0); Calcium 8.5 mg/dL (8.5-10.1); Chloride 100 mmol/L (98-107); Estimated GFR 77.04 (mL/min/1.73m2); Glucose 217 mg/dL (74-106); Magnesium 1.6 mg/dL (1.8-2.4); Potassium 4.3 mmol/L (3.5-5.1); Sodium 136 mmol/L (136-145); Total Protein 7.2 g/dL (6.4-8.2); Troponin I 8 ng/L (<or=76)
[2025-02-04 21:34] LABS: NT-proBNP 2056 pg/mL (<300)
--- NOTE | 2025-02-04 21:45 | DI.CT_ITS ---
Exam(s) CT CHEST PE CTA EXAM: CT CHEST PE CTA CLINICAL HISTORY: elevated dimer, tachy, SOB. TECHNIQUE: Imaging Protocol: CT angiography of the chest was performed using pulmonary embolus protocol. Multi planar reconstructions were performed. CONTRAST MATERIAL: Intravenous: Omnipaque 350 Contrast volume: 100 cc COMPARISON: CT CT CHEST/ABD/PEL W from 10/19/2024 FINDINGS: CHEST: PULMONARY ARTERIES: There are no intraluminal filling defects to suggest acute pulmonary emboli. LUNGS: There are no infiltrates nor evidence of pulmonary infarction.. Mild increased markings but no confluent infiltrates and no pleural effusions. MEDIASTINUM: There is no hilar nor mediastinal adenopathy. CARDIAC: Cardiomegaly. Some calcification is noted in the mitral valve annulus.No pericardial effusion. The diameter of the ascending thoracic aorta is slightly prominent measuring 3.9 cm. The diameter of the aortic arch and descending thoracic aorta are minimally prominent with descending thoracic aorta measuring 2.8 cm. There is no significant shift of the interventricular septum. PARTIALLY VISUALIZED UPPERMOST ABDOMEN: Partially included left adrenal nodule. There are surgical clips in the region of the right adrenal OSSEOUS: There is a healed fracture of the left 4th rib and 5th rib and partially healed fracture of the left 6 rib. There are plates across 7th and 8th rib fractures. There also of healed fractures of the left 9th and 10th ribs. There also multiple nondisplaced healed fractures of right ribsmultiple chronic mid vertebral height loss of but there is a superior endplate fracture of T12 which was not evident on prior CT scan of 10/19/2024. IMPRESSION: 1. No evidence of acute pulmonary emboli. No evidence of pulmonary infarction.No pleural effusions. 2. Cardiomegaly. Enlarged ascending thoracic aorta. No dissection. No pericardial effusion. 3. T12 compression fracture which was not evident on recent CT scan of 10/19/2024. It appears subacute. Multiple bilateral healed rib fractures again noted. There are also plates across the fracture sites is the left 7th and 8th ribs Preliminary virtual Radiology report was reviewed. RADIATION DOSE DELIVERED: 74.04mGy.cm Total DLP DATA REPOSITORY: All CT scans at this facility are submitted to the National Radiology Data Registry (NRDR) Dose Index Registry (DIR) with the [employer] (A[employer]). RADIATION OPTIMIZATION: All CT scans at this facility use at least one of these dose optimization techniques: automated exposure control; mA and/or kV adjustment per patient size (includes targeted exams where dose is matched to clinical indication); or iterative reconstruction.
[2025-02-04 21:47] LABS: D-Dimer 1458 ng/mlFEU (<500)
[2025-02-04] MEDS: MAGNESIUM SULFATE 2 GM/50 ML BAG IV_INF (22:00)
[2025-02-04] MEDS: Azithromycin 250 MG TAB (22:01)
[2025-02-04] MEDS: Omnipaque 350 MG/ML 100 ML BTL IJ (22:03)
[2025-02-04] MEDS: Normal Saline - Diluent 50 ML VIAL IJ (22:04)
[2025-02-04] MEDS: Normal Saline Flush 10 ML SYR IVP (22:04)
[2025-02-04 22:06] LABS: COVID-19 PCR Negative (Negative); RSV PCR Negative (Negative)
--- NOTE | 2025-02-04 22:20 | DI.VRAD_ITS ---
PROCEDURE INFORMATION: Exam: XR Chest Exam date and time: 02/04/2025 9:24 PM Age: 79 years old Clinical indication: Copd; Prior surgery; Surgery date: 6+ months; Surgery type: Rib and clavicle TECHNIQUE: Imaging protocol: Radiologic exam of the chest. Views: 2 views. COMPARISON: CR XR CHEST 2V PA LATERAL 11/02/2024 3:40 PM FINDINGS: Lungs: Diffuse interstitial lung markings noted bilaterally, possibly representing interstitial inflammation or interstitial edema. No large solid consolidation. Pleural spaces: Small left pleural effusion is noted. Heart/Mediastinum: No cardiomegaly. Bones/joints: There is evidence of prior left rib and left clavicle procedure. IMPRESSION: 1. Small left pleural effusion. 2. Increased interstitial lung markings noted, likely interstitial edema or inflammation/infection. Correlate with clinical findings. Dictated and Authenticated by: Елена Holliday MD. [facility] Minor MD
--- NOTE | 2025-02-04 22:46 | DI.VRAD_ITS ---
PROCEDURE INFORMATION: Exam: CTA Chest With Contrast Exam date and time: 02/04/2025 10:03 PM Age: 79 years old Clinical indication: Abnormal findings; Abnormal diagnostic tests; Shortness of breath; Prior surgery; Surgery date: 6+ months; Surgery type: Ribs and clavicle; Elevated d-dimer, SOB, tachy TECHNIQUE: Imaging protocol: Computed tomographic angiography of the chest with contrast. Exam focused on the arteries. 3D rendering (Not supervised by radiologist): MIP and/or 3D reconstructed images were created by the technologist. Radiation optimization: All CT scans at this facility use at least one of these dose optimization techniques: automated exposure control; mA and/or kV adjustment per patient size (includes targeted exams where dose is matched to clinical indication); or iterative reconstruction. Contrast material: OMNPAQUE 350; Contrast volume: 75 ml; Contrast route: INTRAVENOUS (IV); COMPARISON: CT CHEST/ABD/PEL W 10/19/2024 1:12 PM FINDINGS: Pulmonary arteries: No acute pulmonary emboli. Aorta: Atherosclerotic disease of the thoracic aorta, without aneurysm. Lungs: Mild upper lobe predominant centrilobular and paraseptal emphysema. Mild bibasilar atelectasis. Bilateral upper and lower lobe bronchial wall thickening, compatible with reactive airway disease or bronchitis. Pleural spaces: Unremarkable. No pneumothorax. No pleural effusion. Heart: Calcification of the mitral valve annulus. Mild four-chamber cardiac enlargement. Coronary arteries: Moderate three-vessel coronary artery atherosclerotic calcification. Lymph nodes: Unremarkable. No enlarged lymph nodes. Adrenal glands: 17 mm left adrenal nodule, unchanged. Bones/joints: Multiple old, healed and fixated left rib fractures. Moderate multilevel thoracic spine degenerative disc space narrowing and osteophyte formation. Compression fracture deformity of the superior aspect of the T12 vertebral body, with a proximally 40% loss of central vertebral body height. Soft tissues: Unremarkable. IMPRESSION: 1. No acute pulmonary emboli. 2. Bilateral upper and lower lobe bronchial wall thickening, compatible with reactive airway disease or bronchitis. 3. Compression fracture deformity of the superior aspect of the T12 vertebral body, with a proximally 40% loss of central vertebral body height. Fracture is new from comparison CT, but of indeterminate acuity. Dictated and Authenticated by: Bora Rojo MD. [facility] Minor MD
[2025-02-04 23:13] LABS: Troponin I 7 ng/L (<or=76)
== END 2025-02-04 23:33 | disposition home or self-care (01) ==
PROVIDERS: Emergency Provider Emergency Medicine; PCP Internal Medicine
DX: J44.1 Chronic obstructive pulmonary disease with (acute) exacerbation (principal); S22.080A Wedge compression fracture of T11-T12 vertebra, initial encounter for closed fracture; D64.9 Anemia, unspecified; X58.XXXA Exposure to other specified factors, initial encounter; Z86.79 Personal history of other diseases of the circulatory system; Z72.0 Tobacco use
CPT/HCPCS: 99284; 99285; 96374; 94640; 36415; 71275; 80053; 87637; 93005; 71046; 83735; 83880; 84484; 85025; 85379; 93010; J2919; J3475; J3490; J7620

== ENCOUNTER 2025-02-14 15:56 | Outpatient (REF) | payer MEDICARE, SELFPAY ==
[2025-02-14 16:51] LABS: Abs Immature Grans 0.09 10^3/uL (0.0-0.06); HCT 29.2 % (40.0-50.0); HGB 8.5 g/dL (13.5-17.5); Immature Grans % 0.7 %; MCH 24.5 pg (27.0-33.0); MCHC 29.1 % (32.0-36.0); MCV 84 fL (80-95); MPV 9.4 fL (8.0-11.0); Platelet Count 329 10^3/uL (130-400); RBC 3.47 10^6/uL (4.36-5.78); RDW 16.6 % (11.8-14.1); RDW-SD 50.9 fL; WBC 12.47 10^3/uL (4.4-10.8)
[2025-02-14 17:01] LABS: ALT 13 U/L (16-63); AST 17 U/L (15-37); Albumin 2.0 g/dL (3.4-5.0); Alkaline Phosphatase 103 U/L (46-116); Anion Gap 4.1 mmol/L (3-11); BUN 28 mg/dL (7-18); Bilirubin, Total 0.3 mg/dL (0.2-1.0); CO2 29.9 mmol/L (21.0-32.0); Calcium 8.1 mg/dL (8.5-10.1); Chloride 97 mmol/L (98-107); Estimated GFR 87.42 (mL/min/1.73m2); Glucose 108 mg/dL (74-106); Potassium 5.0 mmol/L (3.5-5.1); Sodium 131 mmol/L (136-145); Total Protein 6.1 g/dL (6.4-8.2)
[2025-02-14 17:30] LABS: D-Dimer 1851 ng/mlFEU (<500); Procalcitonin < 0.10 ng/mL
== END 2025-02-14 15:57 | disposition home or self-care (01) ==
LOC: LBN 15:56
PROVIDERS: PCP Internal Medicine; Visit Provider Family Medicine
DX: J44.1 Chronic obstructive pulmonary disease with (acute) exacerbation (principal)
CPT/HCPCS: 80053; 84145; 85025; 85379

== ENCOUNTER 2025-02-15 09:02 | Inpatient (IN) | payer MEDICARE, SELFPAY ==
[2025-02-15] VITALS (60 sets, daily range): BP systolic 85–196; BP diastolic 36–153; PULSE 67–108; RESP 12–21; TEMP 36.4–36.8; O2SAT 91–100
--- NOTE | 2025-02-15 09:16 | W.ED.GENAD ---
Discharge Plan Disposition Patient Disposition: Admit to [facility] Condition: Improving Discharge Details Clinical Impression: HCAP (healthcare-associated pneumonia), Hypoxemia, Acute respiratory acidosis, Hypotension, COPD exacerbation Primary Care Provider: Brijesh Elliott ED Provider: Faustino Andres Home Meds and New Rx's Prescriptions: No Action atorvastatin 40 mg tablet 40 mg PO HS omeprazole 20 mg capsule,delayed release(DR/EC) 20 mg PO DAILY trazodone 100 MG tablet 150 mg PO HS finasteride 5 mg tablet 5 mg PO DAILY oxycodone 5 mg capsule 5 mg PO Q6H PRN PRN (Reason: severe pain (scale score 7-10)) risperidone [Risperdal] 1 mg tablet 1 mg PO BID venlafaxine 75 mg tablet 150 mg PO DAILY cholecalciferol (vitamin D3) 25 mcg (1,000 unit) capsule 1,000 unit PO DAILY metoprolol tartrate 25 mg tablet 25 mg PO Q6H polyethylene glycol 3350 [Miralax] 17 gram powder in packet 17 g PO BID PRN PRN sennosides-docusate sodium [Senna-S] 8.6-50 mg tablet 2 tab PO BID lorazepam [Ativan] 0.5 mg tablet 0.5 mg PO Q8H PRN PRN (Reason: agitation) albuterol sulfate 90 mcg/actuation HFA aerosol inhaler 2 puff inhalation Q4H PRN PRN (Reason: wheezing) clindamycin phosphate [Cleocin T] 1 % lotion 1 applic topical BID Patient Comments: apply to perineum topically BID for rash chlorhexidine gluconate [Peridex] 0.12 % mouthwash 15 ml PO BID Patient Comments: swish and spit 15 mL BID after oral care magnesium hydroxide [Milk of Magnesia] 400 mg/5 mL suspension 30 ml PO DIRECTED PRN Patient Comments: give 30 mL by mouth as needed for no BM X3 days bisacodyl [Dulcolax (bisacodyl)] 10 mg suppository 10 mg ME DIRECTED PRN Patient Comments: insert 1 suppository rectally as needed if no results from milk of magnesia after 24 hours sodium phosphates 19-7 gram/118 mL enema 118 ml ME DIRECTED PRN Patient Comments: insert one application rectally as needed if no results from bisacodyl suppository after 24 hours GlucaGen HypoKit 1 mg recon soln 1 mg IM DIRECTED PRN Patient Comments: Inject 1 mg IM as needed for BG less than 70 and patient is not arousable, conscious or able to swallow. Repeat BG in 15 minutes glucose gel 1 dose PO DIRECTED PRN Patient Comments: 77.4 % gel. Give one dose by mouth as needed for BG les than 70 if patient is arousable, conscious and able to swallow. Repeat BG in 15 min nystatin 100,000 unit/gram cream 1 applic topical TID sorbitol 70 % solution 15 ml PO ONCE PRN Combivent Respimat 20-100 mcg/actuation mist 1 puff inhalation Q6H PRN PRN (Reason: bronchospasm) nitroglycerin 0.4 mg tablet, sublingual 0.4 mg sublingual Q5 MIN PRN X3 PRN Rx Instructions: do not exceed 3 doses per episode lidocaine [Aspercreme (lidocaine)] 4 % adhesive patch,medicated 1 patch topical DAILY PRN Super Thera Ada M Tablet 1 tab PO DAILY guaifenesin [Mucinex] 1,200 mg tablet extended release 12hr 1,200 mg PO BID acetaminophen 325 mg capsule 975 mg PO .Q8 PRN Enema 19-7 gram/118 mL enema 118 ml ME DAILY PRN furosemide [Lasix] 20 mg tablet 10 mg PO DAILY HPI General Date/Time Provider Initiated Documentation: 02/15/25 09:14. HPI Narrative: This is a 79-year-old male with a past medical history of COPD, old vertebral compression fractures, anemia, congestive heart failure, dementia, atrial fibrillation hypertension, BPH, cardiovascular disease, who currently resides at [facility] who had a recent admission in October for aspiration pneumonia who presents today for evaluation of cough for the last 3 to 4 days. Patient had been on azithromycin antibiotic few weeks ago in early January, but is no longer on that. Patient does not add much at all to history, but does state that he has been coughing. He adds nothing else to history. EMS reports that he has been coughing for the last few days, it has been rhonchorous with some productive sputum. He denies any other complaints. EMS states that [facility] said that his oxygen was a tiny bit low, but per their review his O2 remained stable. No other complaints at this time. No complaint of diarrhea. Of note there is a significant amount of Legionella currently going around [facility] facility. Related Data Home Medications ?Medication ?Instructions ?Recorded ?Confirmed trazodone 100 mg tablet 150 mg PO HS 08/09/13 02/15/25 atorvastatin 40 mg tablet 40 mg PO HS 02/06/23 02/15/25 omeprazole 20 mg capsule,delayed 20 mg PO DAILY 02/06/23 02/15/25 release finasteride 5 mg tablet 5 mg PO DAILY 06/03/24 02/15/25 oxycodone 5 mg capsule 5 mg PO Q6H PRN PRN severe pain 06/03/24 02/15/25 (scale score 7-10) ipratropium 20 mcg-albuterol 100 1 puff inhalation Q6H PRN PRN 08/07/24 02/15/25 mcg/actuation mist for inhalation bronchospasm (Combivent Respimat) nitroglycerin 0.4 mg sublingual 0.4 mg sublingual Q5 MIN PRN X3 PRN 08/07/24 02/15/25 tablet risperidone 1 mg tablet (Risperdal) 1 mg PO BID 10/19/24 02/15/25 venlafaxine 75 mg tablet 150 mg PO DAILY 10/19/24 02/15/25 cholecalciferol (vitamin D3) 25 1,000 unit PO DAILY 10/20/24 02/15/25 mcg (1,000 unit) capsule metoprolol tartrate 25 mg tablet 25 mg PO Q6H 10/20/24 02/15/25 polyethylene glycol 3350 17 gram 17 g PO BID PRN PRN 10/20/24 02/15/25 oral powder packet (Miralax) sennosides 8.6 mg-docusate sodium 2 tab PO BID 10/20/24 02/15/25 50 mg tablet (Senna-S) albuterol sulfate 90 mcg/actuation 2 puff inhalation Q4H PRN PRN 10/21/24 02/15/25 aerosol inhaler wheezing bisacodyl 10 mg rectal suppository 10 mg ME DIRECTED PRN 10/21/24 02/15/25 (Dulcolax (bisacodyl)) chlorhexidine gluconate 0.12 % 15 ml PO BID gingavitis 10/21/24 02/15/25 mouthwash (Peridex) clindamycin phosphate 1 % lotion 1 applic topical BID 10/21/24 02/15/25 (Cleocin T) glucagon 1 mg solution for 1 mg IM DIRECTED PRN 10/21/24 02/15/25 injection (GlucaGen HypoKit) glucose 1 dose PO DIRECTED PRN 10/21/24 02/15/25 lorazepam 0.5 mg tablet (Ativan) 0.5 mg PO Q8H PRN PRN agitation 10/21/24 02/15/25 magnesium hydroxide 400 mg/5 mL 30 ml PO DIRECTED PRN 10/21/24 02/15/25 oral suspension (Milk of Magnesia) sodium phosphates 19 gram-7 118 ml ME DIRECTED PRN 10/21/24 02/15/25 gram/118 mL enema acetaminophen 325 mg capsule 975 mg PO .Q8 PRN 11/02/24 02/15/25 guaifenesin 1,200 mg tablet, 1,200 mg PO BID 11/02/24 02/15/25 extended release 12 hr (Mucinex) lidocaine 4 % topical patch 1 patch topical DAILY PRN 11/02/24 02/15/25 (Aspercreme (lidocaine)) multivitamin,tx-minerals (Super 1 tab PO DAILY 11/02/24 02/15/25 Thera Ada M tablet) furosemide 20 mg tablet (Lasix) 10 mg PO DAILY 02/04/25 02/15/25 sodium phosphates 19 gram-7 118 ml ME DAILY PRN 02/04/25 02/15/25 gram/118 mL enema (Enema) nystatin 100,000 unit/gram topical 1 applic topical TID 02/15/25 02/15/25 cream sorbitol 70 % solution 15 ml PO ONCE PRN 02/15/25 02/15/25 Allergies Allergy/AdvReac Type Severity Reaction Status Date / Time fluticasone Allergy Unknown Headache Verified 02/15/25 10:01 gabapentin Allergy Unknown Psychosis Verified 02/15/25 10:01 pregabalin Allergy Unknown Psychosis Verified 02/15/25 10:01 doxycycline AdvReac Intermediate vomiting Verified 02/15/25 10:01 morphine AdvReac Unknown Psychosis Verified 02/15/25 10:01 General Stated Complaint: GenMedical HAROLDO: 3 Exam Narrative Exam Narrative: 1.Const: Well-nourished, Well-developed, appearing stated age 2.Eyes: PERRL, no conjunctival injection, and symmetrical lids. 3.ENT: Atraumatic external nose and ears. Moist MM. Neck: Symmetric, trachea midline, No thyromegaly. 4.CVS: +S1/S2, Peripheral pulses 2+ and equal in all extremities. Brisk capillary refill in all extremities. 5.RESP: No tachypnea, mild wheeze throughout, scattered rhonchi and crackles throughout 6.GI: Soft, Nontender/Nondistended, No hepatosplenomegaly. No guarding or rebound. 7.MSK: Normocephalic/Atraumatic, Extremities w/o deformity or ttp No cyanosis or clubbing, Normal movement of all extremities 8.Skin: Warm, Dry. No rashes or lesions. 9.Neuro: drapery operator II-XII grossly intact. Sensation grossly intact, no focal neurologic deficits. 10.Psych: (AAO) x3. Appropriate mood and affect Course Vital Signs Vital signs: Vital Signs Temperature 36.7 C 02/15/25 09:03 Pulse 82 02/15/25 09:03 Respiratory Rate 13 02/15/25 09:03 Blood Pressure 122/68 02/15/25 09:03 Pulse Oximetry 93 02/15/25 09:03 Temperature 36.7 C 02/15/25 09:10 Temperature Source Oral 02/15/25 09:10 Pulse 82 02/15/25 09:10 Respiratory Rate 13 02/15/25 09:10 Blood Pressure 122/68 02/15/25 09:10 Blood Pressure Position Sitting 02/15/25 09:10 Pulse Oximetry 93 02/15/25 09:10 Oxygen Delivery Method Room Air 02/15/25 09:10 Oxygen Flow Rate 0 02/15/25 09:10 Pain Level 0 02/15/25 09:10 Lab/Test Results Lab/Test Results: 02/15/25 09:11 Blood Blood Culture - Pending 02/15/25 09:11 Blood Blood Culture - Pending Medical Decision Making This is a 79-year-old male with a past medical history of COPD, old vertebral compression fractures, anemia, congestive heart failure, dementia, atrial fibrillation hypertension, BPH, cardiovascular disease, who [facility] who had a recent admission in October for aspiration pneumonia who presents today for evaluation of cough for the last 3 to 4 days. Patient had been on azithromycin antibiotic few weeks ago in early January, but is no longer on that. Patient does not add much at all to history, but does state that he has been coughing. He adds nothing else to history. EMS reports that he has been coughing for the last few days, it has been rhonchorous with some productive sputum. He denies any other complaints. EMS states that health and rehab said that his oxygen was a tiny bit low, but per their review his O2 remained stable. No other complaints at this time. No complaint of diarrhea. Of note there is a significant amount of Legionella currently going around health [facility] rehab facility. Exam demonstrates well-appearing male, mild wheezes and scattered rhonchi and rales throughout. Trace pitting edema in the lower extremities. No hypoxemia at this time, oxygen saturation is around 96% on room air. Differential includes viral etiology, Legionella pneumonia, aspiration or hospital-acquired pneumonia, COPD on top of this, and potentially mild CHF. Will evaluate for these etiologies, give a breathing treatment, monitor closely and reassess. 11:30 AM Laboratory workup has returned, patient has mild respiratory acidosis with elevated pCO2, and slightly low pH at 7.2, mildly elevated white count of 11 with mild left shift but no bandemia. Lactate is benign. Troponin normal. proBNP is 1400 which is slightly lower than normal. COVID flu and RSV negative. With the patient's evidence of respiratory acidosis we did give Solu-Medrol and breathing treatment did help improve his oxygenation initially, however he again became oxygen dependent about an hour or so later is now on 2 L to maintain at around 93 to 95%. Chest x-ray shows left-sided pneumonia which would be healthcare associated pneumonia. Legionella still remains on the differential. Additionally the patient's blood pressure dropped initially from the 100s down to the 80s. He was given a 500 cc bolus. This did improve his blood pressure back to the high 90s and low 100s. With the patient's borderline oxygenation requirements his acute respiratory acidosis, his new pneumonia, his borderline blood pressure I do feel that he would be a better candidate for admission rather than transfer back to [facility]. We will start on levofloxacin, I did discuss the case with the hospitalist Dr. Mas, he agrees with the assessment and plan. I have extensively reviewed the treatment plan with the patient. I have addressed all patient concerns at this time. I have also discussed the plan with the admitting physician and they agree with the current assessment and plan and have agreed to assume responsibility for the patient. All parties demonstrate verbal understanding and agreement with our assessment and plan at this time. The documentation in this chart was dictated using [id number] dictation software. Please excuse any dictation errors. Critical Care Time Critical Care Time Critical Care Time: Yes Total Critical Care Time: 30 Attestation: Upon my evaluation, this patient had a high probability of imminent or life-threatening deterioration, which required my direct attention, intervention, and personal management. I have personally provided 30 minutes of critical care time exclusive of time spent on separately billable procedures. Time includes review of laboratory data, radiology results, discussion with consultants, and monitoring for potential decompensation. Interventions were performed as documented. [facility] All Active Problems (Updated 02/15/25 @ 11:12 by Faustino Andres DO) COPD exacerbation (Acute) Hypotension (Acute) Acute respiratory acidosis (Acute) Hypoxemia (Acute) HCAP (healthcare-associated pneumonia) (Acute) Compression fracture of T12 vertebra (Acute) Anemia (Chronic) COPD exacerbation (Acute) Decubitus ulcer of sacral area (Acute) Aspiration pneumonia (Acute) Dementia with behavioral disturbance (Chronic) Aspiration pneumonia (Acute) Anemia (Chronic) CHF (congestive heart failure) (Chronic) Acute hypercapnic respiratory failure (Acute) Yeast infection of the skin (Acute) Acute respiratory failure with hypoxia and hypercarbia (Acute) Hemopneumothorax on left (Acute) Pain in joint, foot, left (Acute) Corns and callosities (Acute) Cellulitis (Acute) Venous (peripheral) insufficiency (Acute) PAD (peripheral artery disease) (Acute) Onychomycosis (Acute) Neuropathy (Acute) Atrial fibrillation (Chronic) Hearing loss (Acute) with subjective 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 Mononeuritis (Acute) Hyperlipidemia (Chronic) Essential (primary) hypertension (Chronic) BPH (benign prostatic hyperplasia) (Chronic) ADHD (Acute) ASCVD (arteriosclerotic cardiovascular disease) (Chronic) Long-term current use of opiate analgesic (Acute) Tobacco use disorder (Chronic) Venous stasis dermatitis (Acute) Peripheral edema (Acute) 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 Frequent falls (Acute) Medical History (Updated 02/15/25 @ 11:12 by Faustino Andres DO) Viral meningitis Complete rotator cuff tear right Cervical spondylosis Bursitis 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
[2025-02-15 09:37] LABS: BE (Venous) 3 mmol/L (-2-3); HCO3 (Venous) 30 mmol/L (23-28); O2 Sat (Venous) 55 %; TCO2 (Venous) 29 mmol/L (24-29); pO2 (Venous) 35 mmHg
[2025-02-15 09:39] LABS: Abs Immature Grans 0.07 10^3/uL (0.0-0.06); HCT 34.8 % (40.0-50.0); HGB 9.8 g/dL (13.5-17.5); Immature Grans % 0.6 %; MCH 23.8 pg (27.0-33.0); MCHC 28.2 % (32.0-36.0); MCV 85 fL (80-95); MPV 8.8 fL (8.0-11.0); Platelet Count 333 10^3/uL (130-400); RBC 4.11 10^6/uL (4.36-5.78); RDW 16.7 % (11.8-14.1); RDW-SD 51.1 fL; WBC 11.37 10^3/uL (4.4-10.8); pCO2 (Venous) 65 mmHg (41-51)
[2025-02-15] MEDS: methylPREDNISolone SUCC 125 MG VIAL IVP (09:52)
[2025-02-15] MEDS: Albuterol/Ipratropium 3 ML UPD VIAL UPD ×3 (09:52→20:11)
[2025-02-15 09:55] LABS: INR 1.1 (0.9-1.1); PTT Activated 25.5 sec (20.6-30.2); Prothrombin Time 10.8 sec (9.1-11.1)
[2025-02-15 09:58] LABS: COVID-19 PCR Negative (Negative); RSV PCR Negative (Negative)
[2025-02-15 10:10] LABS: ALT 18 U/L (16-63); AST 17 U/L (15-37); Albumin 2.2 g/dL (3.4-5.0); Alkaline Phosphatase 118 U/L (46-116); Anion Gap 3.0 mmol/L (3-11); BUN 23 mg/dL (7-18); Bilirubin, Total 0.3 mg/dL (0.2-1.0); CO2 33.0 mmol/L (21.0-32.0); Calcium 8.6 mg/dL (8.5-10.1); Chloride 97 mmol/L (98-107); Estimated GFR 77.04 (mL/min/1.73m2); Glucose 252 mg/dL (74-106); NT-proBNP 1463 pg/mL (<300); Potassium 4.2 mmol/L (3.5-5.1); Sodium 133 mmol/L (136-145); Total Protein 7.4 g/dL (6.4-8.2); Troponin I 9 ng/L (<or=76)
--- NOTE | 2025-02-15 10:13 | DI.RAD_ITS ---
Exam(s) XR PORTABLE CHEST AP EXAM: XR PORTABLE CHEST AP CLINICAL HISTORY: cough, SOB, eval for pneumonia. TECHNIQUE: 2D digital imaging was performed. COMPARISON: CT CT CHEST PE CTA from 02/04/2025 CR,XR XR CHEST 2V PA LATERAL from 02/04/2025 FINDINGS: Single AP portable view. Cardiomegaly again noted. Calcified mitral valve again noted. Fixation plates again noted across the left clavicle as well as left 7th and 8th ribs. Other left rib fractures are also again noted. No pneumothorax. No new right lung findings. However, there appears to be slight decreased volume in the left lung and mild increased markings in left lower lobe. No obvious pleural effusions. IMPRESSION: Increased markings in left lung and slightly decreased left hemithoracic volume when compared to chest x-ray of02/04/2025. Multiple left-sided rib fractures again noted including 2 of which have fixation plates, these being ribs 7/8. Please note that prior chest CT scan also revealed fractures of the left 3rd, 4th, 5th, 6, 9th and 10th ribs. No pneumothorax. No obvious pleural effusion. DATA REPOSITORY: RADIATION DOSE DELIVERED:
[2025-02-15] MEDS: Normal Saline 500 ML IV (10:58)
[2025-02-15] MEDS: levoFLOXacin 750 MG/150 ML BAG 100 MG IVPB (11:25)
[2025-02-15 11:33] LABS: Troponin I 8 ng/L (<or=76)
--- NOTE | 2025-02-15 12:32 | W.PM.HP.N ---
Date of service: 02/15/25 Time of Service: 12:32 Assessment and Plan Assessment and plan (1) Aspiration pneumonia: Status: Acute Assessment and plan: continue levaquin 750 mg day 1/5 aspiration precautions mucinex scheduled duonebs with albuterol prn bedside swallow evaluation when available. did not meet sepsis criteria (2) Acute hypercapnic respiratory failure: Status: Acute Assessment and plan: d/t pneumonia, likely aspiration continue duonebs, albuterol, treatment for pneumonia (3) Atrial fibrillation: Status: Chronic Assessment and plan: history of chronic afib, not anticoagulated rate controlled continue metoprolol (4) CHF (congestive heart failure): Status: Chronic Assessment and plan: stable with no exacerbation Continue outpatient medical therapy. (5) Essential (primary) hypertension: Status: Chronic Assessment and plan: blood pressure stable. Continue outpatient medical therapy adjust as needed. (6) Dementia with behavioral disturbance: Status: Chronic Assessment and plan: Continue outpatient medical therapy for behavioral abnormalities and mood. monitor for behavioral disturbances. (7) Hyperlipidemia: Status: Chronic Assessment and plan: Continue outpatient statin therapy. (8) Chronic low back pain: Status: Chronic Assessment and plan: no exacerbation, continue home management. (9) ASCVD (arteriosclerotic cardiovascular disease): Status: Chronic Assessment and plan: stable Continue outpatient medical therapy and monitor for exacerbation. (10) Anemia: Status: Chronic Assessment and plan: Chronic and normocytic and at baseline (11) Rash: Status: Acute Assessment and plan: wound care consult discussed with DR Zhang History of Present Illness Narrative: This is a 79-year-old male patient past medical history significant for recurrent pneumonia, aspiration who presented to the emergency department for complaints of productive cough over the last several days. His workup in the emergency department is concerning for a pneumonia. He did not meet sepsis criteria but blood pressure noted to be soft with a systolic of 100. He was placed on Levaquin. Also noted to have oxygen requirement at 2 L nasal cannula. Hospitalist services was asked to admit Of note there is no current Legionella outbreak at his rehab facility. Review of Systems All systems reviewed & are unremarkable except as noted in HPI and below PFSH All Active Problems (Updated 02/15/25 @ 17:50 by Brittani Sanz NP) Rash (Acute) COPD exacerbation (Acute) Hypotension (Acute) Acute respiratory acidosis (Acute) Hypoxemia (Acute) HCAP (healthcare-associated pneumonia) (Acute) Compression fracture of T12 vertebra (Acute) Anemia (Chronic) COPD exacerbation (Acute) Decubitus ulcer of sacral area (Acute) Aspiration pneumonia (Acute) Dementia with behavioral disturbance (Chronic) Aspiration pneumonia (Acute) Anemia (Chronic) CHF (congestive heart failure) (Chronic) Acute hypercapnic respiratory failure (Acute) Yeast infection of the skin (Acute) Acute respiratory failure with hypoxia and hypercarbia (Acute) Hemopneumothorax on left (Acute) Pain in joint, foot, left (Acute) Corns and callosities (Acute) Cellulitis (Acute) Venous (peripheral) insufficiency (Acute) PAD (peripheral artery disease) (Acute) Onychomycosis (Acute) Neuropathy (Acute) Atrial fibrillation (Chronic) Hearing loss (Acute) with subjective 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 Mononeuritis (Acute) Hyperlipidemia (Chronic) Essential (primary) hypertension (Chronic) BPH (benign prostatic hyperplasia) (Chronic) ADHD (Acute) ASCVD (arteriosclerotic cardiovascular disease) (Chronic) Long-term current use of opiate analgesic (Acute) Tobacco use disorder (Chronic) Venous stasis dermatitis (Acute) Peripheral edema (Acute) 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 Frequent falls (Acute) Medical History (Updated 02/15/25 @ 17:50 by Brittani Sanz NP) Viral meningitis Complete rotator cuff tear right Cervical spondylosis Bursitis 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 Exposure to Agent [place] Social History Smoking/Tobacco Use Status: Current every day Tobacco Type: cigarettes Smoking packs per day: 1 Smoking cigarettes per day: 20.0 Years smoked: 50 Smoking pack-years: 50.00 Smoking risk assessment performed?: Yes Alcohol Intake: never Drug use: Never Substance use type: does not use Housing: [facility] Do you feel safe at home: Yes Do you feel safe in your relationship?: Yes Meds Allergies and Home Medications Allergies Allergy/AdvReac Type Severity Reaction Status Date / Time fluticasone Allergy Unknown Headache Verified 02/15/25 10:01 gabapentin Allergy Unknown Psychosis Verified 02/15/25 10:01 pregabalin Allergy Unknown Psychosis Verified 02/15/25 10:01 doxycycline AdvReac Intermediate vomiting Verified 02/15/25 10:01 morphine AdvReac Unknown Psychosis Verified 02/15/25 10:01 Home Medications ?Medication ?Instructions ?Recorded ?Confirmed ?Type trazodone 100 mg tablet 150 mg PO HS 08/09/13 02/15/25 History atorvastatin 40 mg tablet 40 mg PO HS 02/06/23 02/15/25 History omeprazole 20 mg capsule,delayed 20 mg PO DAILY 02/06/23 02/15/25 History release finasteride 5 mg tablet 5 mg PO DAILY 06/03/24 02/15/25 History oxycodone 5 mg capsule 5 mg PO Q6H PRN PRN severe pain 06/03/24 02/15/25 History (scale score 7-10) ipratropium 20 mcg-albuterol 100 1 puff inhalation Q6H PRN PRN 08/07/24 02/15/25 History mcg/actuation mist for inhalation bronchospasm (Combivent Respimat) nitroglycerin 0.4 mg sublingual 0.4 mg sublingual Q5 MIN PRN X3 PRN 08/07/24 02/15/25 History tablet risperidone 1 mg tablet (Risperdal) 1 mg PO BID 10/19/24 02/15/25 History venlafaxine 75 mg tablet 150 mg PO DAILY 10/19/24 02/15/25 History cholecalciferol (vitamin D3) 25 1,000 unit PO DAILY 10/20/24 02/15/25 History mcg (1,000 unit) capsule metoprolol tartrate 25 mg tablet 25 mg PO Q6H 10/20/24 02/15/25 History polyethylene glycol 3350 17 gram 17 g PO BID PRN PRN 10/20/24 02/15/25 History oral powder packet (Miralax) sennosides 8.6 mg-docusate sodium 2 tab PO BID 10/20/24 02/15/25 History 50 mg tablet (Senna-S) albuterol sulfate 90 mcg/actuation 2 puff inhalation Q4H PRN PRN 10/21/24 02/15/25 History aerosol inhaler wheezing bisacodyl 10 mg rectal suppository 10 mg AL DIRECTED PRN 10/21/24 02/15/25 History (Dulcolax (bisacodyl)) chlorhexidine gluconate 0.12 % 15 ml PO BID gingavitis 10/21/24 02/15/25 History mouthwash (Peridex) clindamycin phosphate 1 % lotion 1 applic topical BID 10/21/24 02/15/25 History (Cleocin T) glucagon 1 mg solution for 1 mg IM DIRECTED PRN 10/21/24 02/15/25 History injection (GlucaGen HypoKit) glucose 1 dose PO DIRECTED PRN 10/21/24 02/15/25 History lorazepam 0.5 mg tablet (Ativan) 0.5 mg PO Q8H PRN PRN agitation 10/21/24 02/15/25 History magnesium hydroxide 400 mg/5 mL 30 ml PO DIRECTED PRN 10/21/24 02/15/25 History oral suspension (Milk of Magnesia) sodium phosphates 19 gram-7 118 ml AL DIRECTED PRN 10/21/24 02/15/25 History gram/118 mL enema acetaminophen 325 mg capsule 975 mg PO .Q8 PRN 11/02/24 02/15/25 History guaifenesin 1,200 mg tablet, 1,200 mg PO BID 11/02/24 02/15/25 History extended release 12 hr (Mucinex) lidocaine 4 % topical patch 1 patch topical DAILY PRN 11/02/24 02/15/25 History (Aspercreme (lidocaine)) multivitamin,tx-minerals (Super 1 tab PO DAILY 11/02/24 02/15/25 History Thera Ada M tablet) furosemide 20 mg tablet (Lasix) 10 mg PO DAILY 02/04/25 02/15/25 History nystatin 100,000 unit/gram topical 1 applic topical TID 02/15/25 02/15/25 History cream sorbitol 70 % solution 15 ml PO ONCE PRN 02/15/25 02/15/25 History Exam Narrative Exam Narrative: Elderly male of stated age no acute distress head is atraumatic eyes nonicteric noninjected oral mucosas moist neck supple full range of motion respirations even unlabored breath diminished throughout, loose moist cough, non productive cardiovascular regular rate and rhythm respirations even and unlabored abdomen benign moves all extremities bilateral peripheral edema extremity neurologic awake alert extensive rash periarea/groin Results Labs 02/15/25 09:31 02/15/25 09:31 Labs: Laboratory Results - last 24 hr 02/15/25 02/15/25 02/15/25 09:16 09:31 11:00 WBC 11.37 H RBC 4.11 L Hgb 9.8 L Hct 34.8 L MCV 85 MCH 23.8 L MCHC 28.2 L RDW 16.7 H Plt Count 333 MPV 8.8 Immature Gran % 0.6 Neutrophils % 77.2 Lymphocytes % 13.2 Monocytes % 6.0 Eosinophils % 2.7 Basophils % 0.3 Nucleated RBC % 0.0 Absolute Neutrophils 8.78 H Absolute Lymphocytes 1.50 Absolute Monocytes 0.68 Absolute Eosinophils 0.31 Absolute Basophils 0.03 PT 10.8 INR 1.1 APTT 25.5 VBG pH 7.27 L VBG pCO2 65 H* VBG pO2 35 VBG HCO3 30 H VBG Total CO2 29 VBG O2 Saturation 55 VBG Base Excess 3 VBG Lactate 1.2 Sodium 133 L Potassium 4.2 Chloride 97 L Carbon Dioxide 33.0 H Anion Gap 3.0 BUN 23 H Creatinine 1.0 Est GFR (CKD-EPI 2020) 77.04 Glucose 252 H Calcium 8.6 Total Bilirubin 0.3 AST 17 ALT 18 Alkaline Phosphatase 118 H Troponin I 9 8 NT-Pro-B Natriuret Pep 1463 H Total Protein 7.4 Albumin 2.2 L COVID-19 Source Nasopharynx SARS-CoV-2 (PCR) Negative Influenza Type A (PCR) Negative Influenza Type B (PCR) Negative RSV (PCR) Negative Last Vital Signs Temp 36.7 C 02/15/25 09:10 Pulse 83 02/15/25 12:10 Resp 20 02/15/25 12:02 BP 116/53 L 02/15/25 12:01 Pulse Ox 98 02/15/25 12:10 Time Spent Time spent with Patient: 55-74 minutes Time was spent: preparing to see the patient(eg.review tests), obtaining and/or reviewing separately otained hiistory, ordering medications,tests, procedures, indepentently interpreting results and counseling the patient
--- NOTE | 2025-02-15 12:59 | W.PC.ACHO ---
Registration Status: ADM IN Primary Language: Preferred Language: Nepali ED Information & Data Chief Complaint [facility]Medical 02/15/25 09:25 Triage Note Pt arrives to ED from health 02/15/25 09:03 and rehab d/t an elevated D -dimer noted from blood work that was done yesterday. Productive cough. Denies CP or SOB. Denies calf pain. 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 Exposure to Agent [place] Most Recent Vital Signs Temperature 36.7 C 02/15/25 09:10 Temperature Source Oral 02/15/25 09:10 Pulse 83 02/15/25 12:10 Pulse 80 02/15/25 12:02 Respiratory Rate 20 02/15/25 12:02 Respiratory Effort Normal 02/15/25 09:56 Respiratory Depth Normal 02/15/25 09:56 Respiratory Pattern Normal 02/15/25 09:56 Blood Pressure 116/53 L 02/15/25 12:01 Blood Pressure Mean 77 02/15/25 12:01 Blood Pressure Position Sitting 02/15/25 09:10 Pulse Oximetry 98 02/15/25 12:10 Respiratory End-tidal CO2 46 02/15/25 11:11 Oxygen Delivery Method Nasal Cannula 02/15/25 10:59 Oxygen Flow Rate 2 02/15/25 10:59 Pain Level 0 02/15/25 09:10 Allergies fluticasone Allergy (Unknown, Verified 02/15/25 10:01) Headache gabapentin Allergy (Unknown, Verified 02/15/25 10:01) Psychosis pregabalin Allergy (Unknown, Verified 02/15/25 10:01) Psychosis doxycycline Adverse Reaction (Intermediate, Verified 02/15/25 10:01) vomiting morphine Adverse Reaction (Unknown, Verified 02/15/25 10:01) Psychosis Precautions Isolation Fall precaution 02/15/25 09:10 IV IV Catheter Type [Right Diffusix Forearm] IV Catheter Gauge [Right 20 Forearm] Diagnostics 02/15/25 02/15/25 02/15/25 Range/Units 12:10 11:00 09:31 WBC 11.37 H (4.4-10.8) 10^3/uL RBC 4.11 L (4.36-5.78) 10^6/uL Hgb 9.8 L (13.5-17.5) g/dL Hct 34.8 L (40.0-50.0) % MCV 85 (80-95) fL MCH 23.8 L (27.0-33.0) pg MCHC 28.2 L (32.0-36.0) % RDW 16.7 H (11.8-14.1) % Plt Count 333 (130-400) 10^3/uL MPV 8.8 (8.0-11.0) fL Immature Gran % 0.6 % Neutrophils % 77.2 % Lymphocytes % 13.2 % Monocytes % 6.0 % Eosinophils % 2.7 % Basophils % 0.3 % Nucleated RBC % 0.0 (0.0-0.3) % Absolute Neutrophils 8.78 H (1.2-6.7) 10^3/uL Absolute Lymphocytes 1.50 (1.2-3.4) 10^3/uL Absolute Monocytes 0.68 (0.1-0.8) 10^3/uL Absolute Eosinophils 0.31 (0.0-0.7) 10^3/uL Absolute Basophils 0.03 (0.0-0.2) 10^3/uL PT 10.8 (9.1-11.1) sec INR 1.1 (0.9-1.1) APTT 25.5 (20.6-30.2) sec VBG pH 7.27 L (7.31-7.41) VBG pCO2 65 H* (41-51) mmHg VBG pO2 35 mmHg VBG HCO3 30 H (23-28) mmol/L VBG Total CO2 29 (24-29) mmol/L VBG O2 Saturation 55 % VBG Base Excess 3 (-2-3) mmol/L VBG Lactate 1.2 (<or=2.0) mmol/L Sodium 133 L (136-145) mmol/L Potassium 4.2 (3.5-5.1) mmol/L Chloride 97 L (98-107) mmol/L Carbon Dioxide 33.0 H (21.0-32.0) mmol/L Anion Gap 3.0 (3-11) mmol/L BUN 23 H (7-18) mg/dL Creatinine 1.0 (0.70-1.30) mg/dL Est GFR (CKD-EPI 2020) 77.04 (mL/min/1.73m2) Glucose 252 H (74-106) mg/dL Calcium 8.6 (8.5-10.1) mg/dL Total Bilirubin 0.3 (0.2-1.0) mg/dL AST 17 (15-37) U/L ALT 18 (16-63) U/L Alkaline Phosphatase 118 H (46-116) U/L Troponin I Pending 8 9 (<or=76) ng/L NT-Pro-B Natriuret Pep 1463 H (<300) pg/mL Total Protein 7.4 (6.4-8.2) g/dL Albumin 2.2 L (3.4-5.0) g/dL Urine Color Pending Urine Clarity Pending Urine pH Pending Ur Specific [place] Pending Urine Protein Pending Urine Ketones Pending Urine Blood Pending Urine Nitrite Pending Urine Bilirubin Pending Urine Urobilinogen Pending Ur Leukocyte Esterase Pending Urine Glucose Pending COVID-19 Source SARS-CoV-2 (PCR) (Negative) Influenza Type A (PCR) (Negative) Influenza Type B (PCR) (Negative) Urine Legionella Ag Pending RSV (PCR) (Negative) 02/15/25 Range/Units 09:16 WBC (4.4-10.8) 10^3/uL RBC (4.36-5.78) 10^6/uL Hgb (13.5-17.5) g/dL Hct (40.0-50.0) % MCV (80-95) fL MCH (27.0-33.0) pg MCHC (32.0-36.0) % RDW (11.8-14.1) % Plt Count (130-400) 10^3/uL MPV (8.0-11.0) fL Immature Gran % % Neutrophils % % Lymphocytes % % Monocytes % % Eosinophils % % Basophils % % Nucleated RBC % (0.0-0.3) % Absolute Neutrophils (1.2-6.7) 10^3/uL Absolute Lymphocytes (1.2-3.4) 10^3/uL Absolute Monocytes (0.1-0.8) 10^3/uL Absolute Eosinophils (0.0-0.7) 10^3/uL Absolute Basophils (0.0-0.2) 10^3/uL PT (9.1-11.1) sec INR (0.9-1.1) APTT (20.6-30.2) sec VBG pH (7.31-7.41) VBG pCO2 (41-51) mmHg VBG pO2 mmHg VBG HCO3 (23-28) mmol/L VBG Total CO2 (24-29) mmol/L VBG O2 Saturation % VBG Base Excess (-2-3) mmol/L VBG Lactate (<or=2.0) mmol/L Sodium (136-145) mmol/L Potassium (3.5-5.1) mmol/L Chloride (98-107) mmol/L Carbon Dioxide (21.0-32.0) mmol/L Anion Gap (3-11) mmol/L BUN (7-18) mg/dL Creatinine (0.70-1.30) mg/dL Est GFR (CKD-EPI 2020) (mL/min/1.73m2) Glucose (74-106) mg/dL Calcium (8.5-10.1) mg/dL Total Bilirubin (0.2-1.0) mg/dL AST (15-37) U/L ALT (16-63) U/L Alkaline Phosphatase (46-116) U/L Troponin I (<or=76) ng/L NT-Pro-B Natriuret Pep (<300) pg/mL Total Protein (6.4-8.2) g/dL Albumin (3.4-5.0) g/dL Urine Color Urine Clarity Urine pH Ur Specific [place] Urine Protein Urine Ketones Urine Blood Urine Nitrite Urine Bilirubin Urine Urobilinogen Ur Leukocyte Esterase Urine Glucose COVID-19 Source Nasopharynx SARS-CoV-2 (PCR) Negative (Negative) Influenza Type A (PCR) Negative (Negative) Influenza Type B (PCR) Negative (Negative) Urine Legionella Ag RSV (PCR) Negative (Negative) 02/15/25 09:55 Blood Culture - Pending Blood 02/15/25 09:30 Blood Culture - Pending Blood Intake and Output - 24 Hour Total 02/15/25 08:58 thru 02/15/25 11:51 Intake Total 510 Balance 510 Weight 76.7 kg Intake: IV 510 Falls Risk Assessment History of Falls No History 02/15/25 09:11 Contributing Factors Impairments 02/15/25 09:11 Ambulatory Aids Uses ambulatory device + 02/15/25 09:11 Tubes/Lines With any additional score 02/15/25 09:11 Gait Evaluation No gait disturbance 02/15/25 09:11 Cognition No cognitive impairment 02/15/25 09:11 Fall Total Score 53 02/15/25 09:11 Level of Risk High Risk 02/15/25 09:11 Problems (Last Updated 01/08/25 @ 12:56 by Sofía Brothers RN) Dementia with behavioral disturbance (Chronic) Aspiration pneumonia (Acute) Anemia (Chronic) CHF (congestive heart failure) (Chronic) Acute hypercapnic respiratory failure (Acute) Atrial fibrillation (Chronic) Hyperlipidemia (Chronic) Essential (primary) hypertension (Chronic) ASCVD (arteriosclerotic cardiovascular disease) (Chronic) Chronic low back pain (Chronic) v v v v v v v v v Sending and/or Receiving Nurses: Please use comment section below to note any information pertinent to the patient hand-off not included above. Information / Comments: received report from Cherelle CHAVIRA, pt brought from SNF due to elevated d dimer and PNA. no distress at unit arrival, stable, will continue with assessment and admission Report received from:
--- NOTE | 2025-02-15 16:07 | SP_ITS ---
Date of service: 02/15/25 Time of Service: 16:07 Subjective Clinical (Bedside) Swallow Evaluation - Inpatient Speech Language Pathology Referred by: Brittani Sanz Referral Type: Routine Swallow Consult Precautions: Standard, Fall, DNR/DNI Reason for Referral/HPI: Bijan is a 79 y/o M who resides in [facility]dc care with history of COPD, repeat pneumonias, dementia, CHF, Afib, who is admitted with suspected pneumonia and a several day history of productive cough and 2L nc oxygen requirement on admit. He was last admitted for similar complaints in October. SECURITY SYSTEMS TECHNICIAN did not see the patient but discharge recommendations included MBSS which has not occurred. Recent chest x-ray imaging & comparison as follows: : Cardiomegaly. COPD. Small left pleural effusion versus chronic left pleural thickening in someone with multiple left-sided rib fracture history. There are no Sindi B lines to suggest pulmonary edema. 02/15/2025: Increased markings in left lung and slightly decreased left hemithoracic volume when compared to chest x-ray of02/04/2025. Multiple left-sided rib fractures again noted including 2 of which have fixation plates, these being ribs 7/8. Please note that prior chest CT scan also revealed fractures of the left 3rd, 4th, 5th, 6, 9th and 10th ribs. No pneumothorax. No obvious pleural effusion. SECURITY SYSTEMS TECHNICIAN IMPRESSIONS & RECOMMENDATIONS: Bijan presents with good tolerance of thin liquids this date administered via tsp, cup edge, and sequential straw sips. While he does present with possible mild reduced hyolaryngeal excursion on volitional swallow, this improves with bolus swallow and he is without s/sx aspiration. His exam is otherwise notable for edentulousness and shortness of breath at times, appearing with low tolerance for position changes and short breath groups, etc. Due to his overall deconditioning/reduced activity and pulmonary status (both acutely and baseline COPD) he is at increased risk of pulmonary complications of aspiration or other causes of pneumonia. Given multiple recent hospitalizations with concern for pna, recommend aspiration precautions and diet changes as below. May consider PT consult to increase activity tolerance and pulmonary resilience. If concern remains for aspiration, recommend outpatient MBSS once discharged and recovered. RECOMMENDATIONS Diet Recommendations: ? SOLIDS: 6-Soft & Bite-Sized Solids LIQUIDS: 0-Thin Liquids MEDICATIONS: Whole With 4-Purees RISK MANAGEMENT: Level of Assistance/Supervision: Provide set-up assist with initial verbal reminders for aspiration precautions as below Intermittent supervision for all PO intake Positioning and environment: PO intake only when awake/alert? Reduce auditory and/or visual distractions when eating As upright as tolerated, use HOB controls/bed tilt to achieve upright positioning Oral hygiene Before/after PO intake Using friction with toothbrush on all oral structures as tolerated Strategies/Adaptations/Assistive Equipment: Small sips Small bites Slow rate of intake (breathing breaks) Alternate intake of liquids and solids Reflux Precautions: Maintain fully upright position at least 30 minutes after meals Avoid meals/snacks 2-3 hours prior to reclining/sleeping Sleep with head of bed elevated to reduce likelihood of nocturnal reflux FURTHER INPATIENT SECURITY SYSTEMS TECHNICIAN SERVICES: No further SECURITY SYSTEMS TECHNICIAN services indicated at this time Suggested Referrals/Consults: Physical Therapy Discharge Recommendations: Place outpatient MBSS orders SUBJECTIVE: Patient received: alert/awake, stating his went home to feed the animals. Agreeable to evaluation. Pain Reported n/a Baseline Swallow Function: Patient denies swallowing difficulty prior to admission and eats a regular diet at baseline. OBJECTIVE Patient positioning: As upright as possible using HOB/bed tilt controls (~75 degrees, patient is not able to comfortably tolerate bolt upright positioning) Oral care: Reported recently completed Respiratory status: Room air, appears dyspneic on exertion Orientation/Mental status: Oriented to self, location. Oriented to date, oriented to month when presented with two choices. Not oriented to date. recall of recent events is impaired, able to follow instructions. Speech: WFL Oral Mechanism Examination: Dentition: Largely Edentulous, no dentures Oral mucosa: WFL ? Cranial Nerve Assessment: CN V ? Trigeminal Facial Sensation WNL Jaw Strength/ROM WNL ?WNL CN VII- Facial WNL labial ROM, strength, coordination. WNL lingual sensation WNL CN IX ? Glossopharyngeal WNL palatal elevation with phonation. No evidence of nasal emissions WNL CN X ? Vagus WNL Vocal quality and volume. Strong/sharp volitional cough WNL CX XII ? Hypoglossal WNL lingual ROM, strength, coordination WNL PO Intake: Trials Assessed: IDDSI 0 Thin Liquids (via tsp, cup edge, straw sip (single and consecutive) IDDSI 4 Puree Solid x2 bites IDDSI 7 Regular Solid (1/2 cracker) Oral Phase Findings: Difficulty chewing (prolonged, edentulous) Mild diffuse, improves with liquid wasn Pharyngeal Phase Findings: Delayed swallow initiation at times, appearing due to SOB Education Provided to: Nursing Patient Topics Addressed: definition and impacts of aspiration impact of current diagnoses on swallow function overt s/sx to monitor for re: potential aspiration of food / liquids relationship between respiratory function and deglutition rationale and instruction for additional risk management strategies as below PLAN: No further SECURITY SYSTEMS TECHNICIAN services indicated at this time. Please re-refer as needed. SECURITY SYSTEMS TECHNICIAN CPT Code: 08142 Clinical Swallowing Evaluation Start time: 3:10 End time: 3:35 Total patient contact: 25 min
[2025-02-15 16:14] LABS: BE (Venous) 2 mmol/L (-2-3); HCO3 (Venous) 28 mmol/L (23-28); O2 Sat (Venous) 45 %; TCO2 (Venous) 28 mmol/L (24-29); pCO2 (Venous) 55 mmHg (41-51); pO2 (Venous) 28 mmHg
--- NOTE | 2025-02-15 17:35 | W.WOUNDCONS ---
Date of service: 02/15/25 Time of Service: 17:00 Wound Initial Evaluation Narrative Narrative: Bijan Mortensen is a 79 year old man presenting to this facilities ER w/ c/o productive cough over the last several days. His work up for this admission is concerning for a pneumonia.PMH is siginificant for COPD, hypotension, anemia hypoxemia, dementia, CHF, yeast infection of the skin, PAD, neuropathy, mononeuritis and frequent falls. Patient is largely incontinent of bowel and bladder. Patient is a resident at the [facility]. He ambulates with a walker and 1 assist. Of note patient's BMI is 27.3. Wound Groin: Wound Type: Other (hidradenitis suppurativa like lesions) Wound Surrounding Tissue Appearance: Dark Red, Shiny and Tunnelling Wound Drainage Amount: None Wound Drainage Odor: None/Absent Wound Topical Solution/Irrigant: Other (Wound cleanser) Circulation, Sensation, Motion Peripheral Pulse Strength: Weak Capillary Refill: Greater than 3 seconds Skin Temperature: Warm Skin Color: Jacob and Hyperpigmentation ANA ROSA Blood Pressure: 97/62 Heart Rate: 69 Wound Summary Wound Summary: Groin multiple areas of dusky skin with tunneling areas and bumps No odor noted or drainage at this time. Photo Photo: Treatment/Dressing Change Cleanse With: Cleanser with Surfactant Dressing Types: Xeroform and Other (skinfold Dry sheet) Dressing Comment: Skinfold Dry Sheet secured w/ paper tape Nutrition Education Reviewed Nutrition Education: No Recomendation Recomendation:: Groin Remove old dressing Cleanse with wound cleanser let dwell for 2 minutes pat dry with gauze Apply xeroform to affected areas on inside of thighs Cover w/ Skinfold Dry sheets Secure with paper tape Change Qshift and PRN if soiled. Physcian/Nurse Practioner Notified: Yes
[2025-02-15 17:36] LABS: Troponin I 7 ng/L (<or=76)
--- NOTE | 2025-02-15 17:45 | RT.EKG_ITS ---
APPROVED REPORT Exam: Resting ECG Reason for Exam: QTC Patient Location: I HR:84 bpm ECG Measurements Heart Rate 84 AXIS [place] [id number] P [id number] QRSd 95 QRS 72 QT 514 T -74 QTc 608 Conclusion Atrial fibrillation...V-rate 73- 93, irreg A-activity Low voltage, extremity leads...all extremity leads <0.5mV Anteroseptal infarct, old...Q >40mS, V1-V2 Diffuse nondiagnostic ST-T abnormalities
[2025-02-15] MEDS: Acetaminophen 325 MG TAB 650 MG PO (18:40)
[2025-02-15] MEDS: oxyCODONE 5 MG TAB PO (18:40)
[2025-02-15] MEDS: MAGNESIUM SULFATE 1 GM/100 ML BAG IV_INF (18:49)
[2025-02-15] MEDS: traZODone 100 MG TAB 150 MG PO (20:14)
[2025-02-15] MEDS: cefTRIAXone 1 GM/50 ML BAG IVPB (20:14)
[2025-02-15] MEDS: Chlorhexidine Gluconate 0.12% Mouthwash 15 ML BTL PO (20:14)
[2025-02-15] MEDS: Sennosides/Docusate Sodium TAB 2 TAB PO (20:15)
[2025-02-15] MEDS: Atorvastatin 40 MG TAB PO (20:15)
[2025-02-15] MEDS: risperiDONE 1 MG TAB PO (20:15)
[2025-02-15] MEDS: guaiFENesin 600 MG TABCR 1200 MG PO (20:15)
[2025-02-15] MEDS: Metoprolol 25 MG TAB PO (20:15)
[2025-02-15] MEDS: Normal Saline Flush 10 ML SYR IVP (20:22)
[2025-02-15] MEDS: DOXYCYCLINE 100 MG in Normal Saline 100 ML IVPB (21:05)
[2025-02-15 23:26] LABS: Glucose Negative (Negative)
[2025-02-15 23:32] LABS: C & S Indicated? No; WBC Negative HPF (0-5)
[2025-02-16] VITALS (8 sets, daily range): BP systolic 111–128; BP diastolic 65–87; PULSE 69–102; RESP 15–18; TEMP 36.4–36.8; O2SAT 92–98
[2025-02-16] MEDS: Metoprolol 25 MG TAB PO ×4 (04:06→21:32)
[2025-02-16 06:28] LABS: Abs Immature Grans 0.09 10^3/uL (0.0-0.06); HCT 28.5 % (40.0-50.0); HGB 8.3 g/dL (13.5-17.5); Immature Grans % 0.8 %; MCH 24.2 pg (27.0-33.0); MCHC 29.1 % (32.0-36.0); MCV 83 fL (80-95); MPV 8.8 fL (8.0-11.0); Platelet Count 319 10^3/uL (130-400); RBC 3.43 10^6/uL (4.36-5.78); RDW 16.6 % (11.8-14.1); RDW-SD 50.0 fL; WBC 11.29 10^3/uL (4.4-10.8)
[2025-02-16 06:50] LABS: Anion Gap 3.2 mmol/L (3-11); BUN 18 mg/dL (7-18); CO2 29.8 mmol/L (21.0-32.0); Calcium 8.4 mg/dL (8.5-10.1); Chloride 97 mmol/L (98-107); Estimated GFR 90.58 (mL/min/1.73m2); Glucose 155 mg/dL (74-106); Potassium 4.4 mmol/L (3.5-5.1); Sodium 130 mmol/L (136-145)
[2025-02-16] MEDS: Albuterol/Ipratropium 3 ML UPD VIAL UPD ×3 (08:30→20:30)
[2025-02-16] MEDS: Sennosides/Docusate Sodium TAB 2 TAB PO (08:43)
[2025-02-16] MEDS: Finasteride 5 MG TAB PO (08:44)
[2025-02-16] MEDS: Omeprazole 20 MG CAPCR PO (08:44)
[2025-02-16] MEDS: Multivitamin TAB 1 TAB PO (08:44)
[2025-02-16] MEDS: Furosemide 20 MG TAB 10 MG PO (08:45)
[2025-02-16] MEDS: guaiFENesin 600 MG TABCR 1200 MG PO ×2 (08:45→20:42)
[2025-02-16] MEDS: risperiDONE 1 MG TAB PO ×2 (08:45→20:42)
[2025-02-16] MEDS: Chlorhexidine Gluconate 0.12% Mouthwash 15 ML BTL PO ×2 (08:45→20:43)
[2025-02-16] MEDS: Cholecalciferol (Vitamin D3) 1,000 UNIT TAB 1000 UNITS PO (08:45)
[2025-02-16] MEDS: Normal Saline Flush 10 ML SYR IVP ×2 (08:46→20:42)
[2025-02-16] MEDS: DOXYCYCLINE 100 MG in Normal Saline 100 ML IVPB ×2 (09:41→21:31)
--- NOTE | 2025-02-16 10:13 | PGE_ITS ---
Date of Service Date of service: 02/16/25 Time of Service: 10:13 Assessment and Plan Assessment and plan (1) Aspiration pneumonia: Status: Acute Assessment and plan: Levaquin 750 mg in the ED now on Doxycycline and ceftriaxone day 2/5 maintain aspiration precautions legionella pending continue mucinex, acapella, scheduled duonebs with albuterol prn SPL consult for bedside swallow evaluation when available. did not meet sepsis criteria on admission (2) Acute hypercapnic respiratory failure: Status: Acute Assessment and plan: New oxygen requirement of 2/min from non at [facility] in the setting of pneumonia, likely aspiration Wean oxygen as tolerated for sat > 92% As above (3) Atrial fibrillation: Status: Chronic Assessment and plan: Hx of hronic afib with rate control onmetoprolol, not anticoagulated continue home regimen (4) CHF (congestive heart failure): Status: Chronic Assessment and plan: No exacerbation Ongoing outpatient medical therapy. (5) Essential (primary) hypertension: Status: Chronic Assessment and plan: Controlled Continue outpatient medical regimen and adjust as needed. (6) Dementia with behavioral disturbance: Status: Chronic Assessment and plan: Continue outpatient drug regimen for behavioral abnormalities and mood. Ongoing monitoring of for behavioral disturbances. Acute illness and hospitalization might promote incidence of delirium Promote sleep at night and give PRN pain medicines as ordered (7) Hyperlipidemia: Status: Chronic Assessment and plan: Ongoing outpatient statin therapy. (8) Chronic low back pain: Status: Chronic Assessment and plan: Ongoing home management, no exacerbation. (9) ASCVD (arteriosclerotic cardiovascular disease): Status: Chronic Assessment and plan: Remains stable Ongoing outpatient medical therapy and monitoring for exacerbation. (10) Anemia: Status: Chronic Assessment and plan: H&H 8.3& 28.5 remains within range Chronic and normocytic Labs in AM (11) Rash: Status: Acute Assessment and plan: Wound care consult completed and ongoing wound vare as per order (12) Discharge planning issues: Status: Acute Assessment and plan: PT consult - stating being ambulatory discussed with Dr. Zhang Subjective Subjective Patient reports: no new complaints, feels better (Stating that he is usually ambulatory), tolerating liquids well, tolerating a regular diet and voiding w/o difficulty; denies diarrhea, nausea, vomiting, shortness of breath or fever Exam Narrative Exam Narrative: 79-year-old male looking older than stated age on room air without acute distress, alert and oriented x 3 uncertain about date unlabored breathing clear lungs w decreased left base, abdomen non-distended , soft , non-tender, moves all 4 ext, redness erythema to bilat groin Objective Last Vital Signs Temp 36.4 C L 02/16/25 07:54 Pulse 71 02/16/25 08:30 Resp 16 02/16/25 08:30 BP 116/87 02/16/25 07:54 Pulse Ox 92 02/16/25 08:30 Laboratory Results - last 24 hr 02/15/25 02/15/25 02/15/25 11:00 16:09 23:05 WBC RBC Hgb Hct MCV MCH MCHC RDW Plt Count MPV Immature Gran % Neutrophils % Lymphocytes % Monocytes % Eosinophils % Basophils % Nucleated RBC % Absolute Neutrophils Absolute Lymphocytes Absolute Monocytes Absolute Eosinophils Absolute Basophils VBG pH 7.33 VBG pCO2 55 H VBG pO2 28 VBG HCO3 28 VBG Total CO2 28 VBG O2 Saturation 45 VBG Base Excess 2 Sodium Potassium Chloride Carbon Dioxide Anion Gap BUN Creatinine Est GFR (CKD-EPI 2020) Glucose Calcium Troponin I 8 7 Urine Color Yellow Urine Clarity Clear Urine pH 6.0 Ur Specific [place] 1.015 Urine Protein Negative Urine Ketones Negative Urine Blood Trace-intact H Urine Nitrite Negative Urine Bilirubin Negative Urine Urobilinogen 0.2 Ur Leukocyte Esterase Negative Urine RBC 3-5 H Urine WBC Negative Ur Epithelial Cells Negative Urine Crystals Negative Urine Bacteria Rare Urine Casts Negative Urine Mucus Negative Ur Culture Indicated? No Urine Glucose Negative 02/16/25 06:17 WBC 11.29 H RBC 3.43 L Hgb 8.3 L Hct 28.5 L MCV 83 MCH 24.2 L MCHC 29.1 L RDW 16.6 H Plt Count 319 MPV 8.8 Immature Gran % 0.8 Neutrophils % 84.7 Lymphocytes % 8.2 Monocytes % 6.2 Eosinophils % 0.0 Basophils % 0.1 Nucleated RBC % 0.0 Absolute Neutrophils 9.56 H Absolute Lymphocytes 0.93 L Absolute Monocytes 0.70 Absolute Eosinophils 0.00 Absolute Basophils 0.01 VBG pH VBG pCO2 VBG pO2 VBG HCO3 VBG Total CO2 VBG O2 Saturation VBG Base Excess Sodium 130 L Potassium 4.4 Chloride 97 L Carbon Dioxide 29.8 Anion Gap 3.2 BUN 18 Creatinine 0.8 Est GFR (CKD-EPI 2020) 90.58 Glucose 155 H Calcium 8.4 L Troponin I Urine Color Urine Clarity Urine pH Ur Specific [place] Urine Protein Urine Ketones Urine Blood Urine Nitrite Urine Bilirubin Urine Urobilinogen Ur Leukocyte Esterase Urine RBC Urine WBC Ur Epithelial Cells Urine Crystals Urine Bacteria Urine Casts Urine Mucus Ur Culture Indicated? Urine Glucose Time Spent with Patient Time Spent with Patient: >50 minutes Time was spent: preparing to see the patient(eg.review tests), obtaining and/or reviewing separately otained hiistory, ordering medications,tests, procedures, referring, communicating with other health urgent care physician assistant, indepentently interpreting results, counseling the patient, care coordination and other
--- NOTE | 2025-02-16 13:22 | PHA.REVIEW2 ---
Pharmacy Admission Review Admission Clinical Review Admission Pharmacy Review: Rash (Acute) Aspiration pneumonia (Acute) Acute hypercapnic respiratory failure (Acute) fluticasone Allergy (Unknown, Verified 02/15/25 10:01) Headache gabapentin Allergy (Unknown, Verified 02/15/25 10:01) Psychosis pregabalin Allergy (Unknown, Verified 02/15/25 10:01) Psychosis doxycycline Adverse Reaction (Intermediate, Verified 02/15/25 10:01) vomiting morphine Adverse Reaction (Unknown, Verified 02/15/25 10:01) Psychosis Resuscitation Status DNR/DNI Height 5 ft 6 in Weight 76.7 kg Comments Comments/Follow Ups: Follow up on home med question Pharmacy Admission Review Renal Dosing Renal Dosing: BUN 18 mg/dL (7-18) 02/16/25 06:17 Creatinine 0.8 mg/dL (0.70-1.30) 02/16/25 06:17 Medications needing adjustments: Reviewed (CrCl 59.38 mL/min) List of meds needing interventions: Current medications are okay Anticoagulation Anticoagulation: Hgb 8.3 g/dL (13.5-17.5) L 02/16/25 06:17 Hct 28.5 % (40.0-50.0) L 02/16/25 06:17 Plt Count 319 10^3/uL (130-400) 02/16/25 06:17 INR 1.1 (0.9-1.1) 02/15/25 09:31 Creatinine 0.8 mg/dL (0.70-1.30) 02/16/25 06:17 DVT Prophylaxis: Reviewed Medications: Enoxaparin (40mg daily) Opiate Usage Evaluate Pain Scale/Pains Meds: Reviewed (oxycodone 5mg q6h PRN - 5mg/24hrs) Scheduled Bowel Reg ordered if on Opiates?: Yes (Senna/docusate) Relevant Labs Relevant Labs: Sodium 130 mmol/L (136-145) L 02/16/25 06:17 Potassium 4.4 mmol/L (3.5-5.1) 02/16/25 06:17 Chloride 97 mmol/L (98-107) L 02/16/25 06:17 Electrolytes, C-Reactive P, ESR: Reviewed Cardiac Review Cardiac Review: Troponin I 7 ng/L (<or=76) 02/15/25 16:09 NT-Pro-B Natriuret Pep 1463 pg/mL (<300) H 02/15/25 09:31 BP, HR, EF%: Reviewed (BP/HR WNL) List meds needing interventions: Has orders for furosemide 10mg daily and metoprolol 25mg q6h QTc Review QTc: Reviewed (483 from 02/04/25) IV to PO Switch IV Medications: Reviewed (ceftriaxone and doxycycline) Home Meds Home Med List reviewed: Intervened Relevent Home Meds Not ordered & why?: glucagon (PRN), Combivent (PRN) and sorbitol solution (PRN) Unable to see any fill history for this patient. Patients venlafaxine is listed on home med list as venlafaxine IR 150mg daily. Generally IR venlafaxine is dosed multiple times a day. Sent message to nurse to see if patient actually takes the XR formulation at home. Waiting to hear back. Current Meds Current Medication Order Review: Intervened Comments: Changed IV ED access order Pharmacy Antibiotic Review Relevant Labs: WBC 11.29 10^3/uL (4.4-10.8) H 02/16/25 06:17 Temperature 36.4 C Microbiology 02/15/25 09:55 Blood Culture - Preliminary Blood NO GROWTH 24 HOURS 02/15/25 09:30 Blood Culture - Preliminary Blood NO GROWTH 24 HOURS Pharmacy Antibiotic Activity: C/S review and Reviewed, no change Comments: Patient is on ceftriaxone and doxycycline, day 1, for pneumonia. WBC slightly decreased from 11.37. Comments Comments/Follow Ups: Follow up on home med question
--- NOTE | 2025-02-16 13:35 | PDOC.CMIN ---
Date of service: 02/16/25 Time of Service: 14:55 Care Management Initial Assmt Initial Assessment Reason for Hospitalization: Pneumonia, Acute Hypoxic respiratory failure Functional Status/Living Situation Patient Presentation: Bijan was sitting in bed and awake when CM met with him. Bijan presented to the ED yesterday for for evaluation of cough for the last 3 to 4 days. Bijan currently resides at [facility]. During a previous admission in October, his , Sheryl, reported that he has been living there since June or July. She expressed concerns about his lack of progress and shared that she may not be able to safely care for him at home in the future. During this admission, Bijan stated that he does not enjoy living at [facility], citing a lack of engaging activities. He is a 100% service-connected disabled [place] and reports he remains connected to [facility] services. Bijan has received a wound care consultation and was evaluated by speech therapy for a swallow assessment. He was previously requiring oxygen at 2L but is currently on room air. Bijan shared that he is hopeful to return home soon and noted that his has been able to visit him during this admission. 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 Per RN, he ambulates with a walker and 1 assist Advance Directives Advance Directives: Do you have an Advance Directive: N 09/05/18, 15:47 AD On File at [facility]: N 09/05/18, 15:47 Date Asked 02/04/25 02/04/25, 20:59 AD Date Reviewed COLST On File at [facility] Yes 10/19/24, 16:14 COLST Date Scanned Code Status Resuscitation Status DNR/DNI Portal Pt does not currently have a portal and education provided: Yes Insurance Coverage/Financial Issues Insurance: Medicare Part A & B - [id number] Care Team Visit Care Team Role Provider Type Vivien Ch APRN MD [facility] STAFF PHYSICIAN Brijesh Elliott Primary Care Provider NON-[facility] STAFF PHYSICIAN Cheyenne Crawford, CIVIL ENGINEER HELPER Other Providers SPEECH LANGUAGE PATHOLOGIST Sangeetha Rm, CIVIL ENGINEER HELPER Other Providers SPEECH LANGUAGE PATHOLOGIST Sofía Rodríguez Other Providers SPEECH LANGUAGE PATHOLOGIST Becky Whitehead, CIVIL ENGINEER HELPER Other Providers SPEECH LANGUAGE PATHOLOGIST Samanta Campbell, CIVIL ENGINEER HELPER Other Providers SPEECH LANGUAGE PATHOLOGIST In[employer] Nathan Ahuja Other Providers OTHER Faustino Andres, Emergency Provider [facility] STAFF PHYSICIAN Gerson Zhang Admit Provider [facility] STAFF PHYSICIAN Attending Provider Discharge Potential Discharge Needs: PCP F/U Appt Anticipated Barriers to Discharge: Medical Status Patient/Family Education Needs: Review discharge instructions, discuss Ask Me Three Transportation: [facility] Transportation: Wheel chair van Plan: Anticipate Bijan will return to [facility] once medically cleared. He will follow up with the facility providers and continue per his discharge plan of care. He will likely be transported via [facility]. CM will continue to follow and adjust the plan as needed. Social Determinants of Health Screening Will the Patient Participate in the Screening?: Unable to obtain Do you worry about having a steady place to live?: no Comments: Pt from halfway [facility] All Active Problems (Updated 02/16/25 @ 14:07 by Vivien Ch APRN) Discharge planning issues (Acute) Rash (Acute) COPD exacerbation (Acute) Hypotension (Acute) Acute respiratory acidosis (Acute) Hypoxemia (Acute) HCAP (healthcare-associated pneumonia) (Acute) Compression fracture of T12 vertebra (Acute) Anemia (Chronic) COPD exacerbation (Acute) Decubitus ulcer of sacral area (Acute) Aspiration pneumonia (Acute) Dementia with behavioral disturbance (Chronic) Aspiration pneumonia (Acute) Anemia (Chronic) CHF (congestive heart failure) (Chronic) Acute hypercapnic respiratory failure (Acute) Yeast infection of the skin (Acute) Acute respiratory failure with hypoxia and hypercarbia (Acute) Hemopneumothorax on left (Acute) Pain in joint, foot, left (Acute) Corns and callosities (Acute) Cellulitis (Acute) Venous (peripheral) insufficiency (Acute) PAD (peripheral artery disease) (Acute) Onychomycosis (Acute) Neuropathy (Acute) Atrial fibrillation (Chronic) Hearing loss (Acute) with subjective 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 Mononeuritis (Acute) Hyperlipidemia (Chronic) Essential (primary) hypertension (Chronic) BPH (benign prostatic hyperplasia) (Chronic) ADHD (Acute) ASCVD (arteriosclerotic cardiovascular disease) (Chronic) Long-term current use of opiate analgesic (Acute) Tobacco use disorder (Chronic) Venous stasis dermatitis (Acute) Peripheral edema (Acute) 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 Frequent falls (Acute) Medical History (Updated 02/16/25 @ 14:07 by Vivien Ch APRN) Viral meningitis Complete rotator cuff tear right Cervical spondylosis Bursitis 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
--- NOTE | 2025-02-16 15:21 | IN_ITS ---
PT Notes Visit Reasons: Pneumonia, Acute Hypoxic Respiratory Failure Inpatient Physical Therapy Evaluation Date: 02/16/2025 Referring Doctor: Vivien Ch NP PT Orders: PT CONSULT: Safety Consult for D/C. Eval for Assistive Device Precautions: Standard. Fall risk. ACtivity as tolerated. Patient Profile/Admitting Diagnosis: Bijan is a 79-year-old male patient who has multiple medical problems living at a local skilled nursing with long standing dementia and behavioral issues. he is admitted for management of aspiration PNA, acute hypercapneic respiaratory failure, AF, CHF, and HTN. PMHx: All Active Problems (Updated 02/15/25 @ 17:50 by Brittani Sanz NP) Rash (Acute) COPD exacerbation (Acute) Hypotension (Acute) Acute respiratory acidosis (Acute) Hypoxemia (Acute) HCAP (healthcare-associated pneumonia) (Acute) Compression fracture of T12 vertebra (Acute) Anemia (Chronic) COPD exacerbation (Acute) Decubitus ulcer of sacral area (Acute) Aspiration pneumonia (Acute) Dementia with behavioral disturbance (Chronic) Aspiration pneumonia (Acute) Anemia (Chronic) CHF (congestive heart failure) (Chronic) Acute hypercapnic respiratory failure (Acute) Yeast infection of the skin (Acute) Acute respiratory failure with hypoxia and hypercarbia (Acute) Hemopneumothorax on left (Acute) Pain in joint, foot, left (Acute) Corns and callosities (Acute) Cellulitis (Acute) Venous (peripheral) insufficiency (Acute) PAD (peripheral artery disease) (Acute) Onychomycosis (Acute) Neuropathy (Acute) Atrial fibrillation (Chronic) Hearing loss (Acute) with subjective tinnitus Osteoarthritis (Chronic) R shoulderMonoplegia (Acute) left leg Mononeuritis (Acute) Hyperlipidemia (Chronic) Essential (primary) hypertension (Chronic) BPH (benign prostatic hyperplasia) (Chronic) ADHD (Acute) ASCVD (arteriosclerotic cardiovascular disease) (Chronic) Long-term current use of opiate analgesic (Acute) Tobacco use disorder (Chronic) Venous stasis dermatitis (Acute) Peripheral edema (Acute) 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 Frequent falls (Acute) Medical History (Updated 02/15/25 @ 17:50 by Brittani Sanz NP) Viral meningitis Complete rotator cuff tear rightCervical spondylosis Bursitis 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 He reported that he can normally walk short distances with a walker, estimating he could walk to the door and back at baseline. 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 Equipment Owned/DME: FWW, wheelchair Subjective: Initially was teary-eyed as he was thingking his is duping him of his money which was why she wasn not claling him back. Later on called and let him know that she was talking with 's sister about something and that she was coming in to have supper with him today if he walks with this provider. Objective: General Observation: Resting in bed. Needed to be cleaned as he had a bowel movement after he was asked to stand up to walk. PRASHANTH Miller helped with pericare. No lines. Mental Status:Emotionally labile but whne redirected and called back, became more lucid and able to participate in session. Needed more encouragement towards the end of session as he was getting tired and his B knees were startung to bother him. Worked as an acocuntant, did indicate that his IQ was 193. Pain: Back pain and knee pain (chronic) ROM: Right Upper Extremity: Shoulder Flexion allowed up to 100 degrees. Shoulder abduction allowed up to 100 degrees. Elbow flexion WFL. Wrist flexion WFL. Functional opening and closing of hand WFL. Left Upper Extremity: Shoulder Flexion allowed up to 100 degrees. Shoulder abduction allowed up to 100 degrees. Elbow flexion WFL. Wrist flexion WFL. Functional opening and closing of hand WFL. Right Lower Extremity: Hip flexion allowed up to about 90 degrees. Hip abduction WFL. Knee flexion 30 degrees to 90 degrees. Knee extension -30 degrees. Ankle dorsiflexion to neutral only. Ankle plantarflexion WFL. Left Lower Extremity: Hip flexion allowed up to about 90 degrees. Hip abduction WFL. Knee flexion 30 degrees to 90 degrees. Knee extension -30 degrees. Ankle dorsiflexion to neutral only. Ankle plantarflexion WFL. Strength: Right Upper Extremity: Shoulder flexors 3-/5. Shoulder abductors 53-5. Elbow flexors 4-/5. Elbow extensors 4-/5. Operational Intelligence Officer strong. Left Upper Extremity: Shoulder flexors 3-/5. Shoulder abductors 53-5. Elbow flexors 4-/5. Elbow extensors 4-/5. Operational Intelligence Officer strong. Right Lower Extremity: Hip flexors 3-/5. Hip abductors 3-/5. Knee flexors 3-/5. Knee extensors 3-/5. Ankle dorsiflexors 3-/5. Ankle plantarflexors 4-/5. Left Lower Extremity: Hip flexors 3-/5. Hip abductors 3-/5. Knee flexors 3-/5. Knee extensors 3-/5. Ankle dorsiflexors 3-/5. Ankle plantarflexors 4-/5. Bed Mobility/Transfers: Moderate cueing provided for use of B hands as needed for support, movement sequence, AD management, and posture to reduce fall risk and minimize pain report Rolling contact guard assist Supine to sit conatct guard assist with HOB at 30 degrees Sit to stand minimal assist with FWW with definite use of hands for support Stand to sit minimal assist with FWW with definite use of hands for support Bed to chair minimal assist of 2 with FWW with definite use of hands for support Chair to bed minimal assist of 2 with FWW with definite use of hands for support Gait: Covered a short distance from edeg of bed to bedside chair about 6-8 small steps with extensive encouragement as patient got so anxious about falling. He needed contact guard assist of 2 which became minimal assist of 2 due to anxiety. Reported pain in B knees after activity. Glad to have made it to the chair safely. Balance: Static Sitting: Normal Dynamic Sitting: Good Static Standing: Fair Dynamic Standing: Fair Special Tests: Mobility Limitations Standardized Measure [facility] AM-PAC 6 clicks Basic Mobility Inpatient Short Form: Raw Score: 14 CMS Score: 61% impairment Informed Consent/Education: Patient instructed in purpose of PT consult and plan of care. Assessment: Bijan is a 79-year-old male patient who has multiple medical problems living at a local skilled nursing with long standing dementia and behavioral issues. he is admitted for management of aspiration PNA, acute hypercapneic respiaratory failure, AF, CHF, and HTN. Patient presents with clinical signs and symptoms consistent with current/admitting diagnoses that have resulted to mobility limitations, gait instability, generalized weakness, and overall ADL decline as demonstrated by the following impairment level findings: 1. Decreased strength to B UE/LE major muscle groups 2. Impaired sitting/standing balance 3. Impaired activity tolerance 4. Limitation of joint range of motion in B LE joints 5. Pain in B knees Impairments are contributing to the following functional limitations: 1. Decline in bed mobility skills 2. Decline in transfer skills 3. Difficulty with ambulation without assistive device and physical assistance 4. Increased completion time for mobility ADL performance 5. Increased risk for falls 6. Difficulty with managing steps alone safely Patient is assessed as a 94941 moderate complexity based on the following: History: 79-year-old male with past medical history as indicated above Examination: Demonstrable impairment in strength, balance, and mobility level with underlying impairments and functional limitations as exhibited above as well as deficit score of 61% utilizing the [facility] Mobility Inpatient Short Form Presentation: Evolving Decision Makin moderate complexity Goals: Goals X1 week 1. Supine-Sit : supervision 2. Sit-Supine : supervision 3. Sit-Stand : supervision 4. Stand-Sit : supervision 5. Bed-Chair : supervision with FWW 6. Chair-Bed : supervision with FWW 7. Gait : CGA with FWW x 50' Plan of Care/Treatment Plan: 1-2x/day, 7 days/week x 1 week. Plan of care has been reviewed with the SHERIFF DETECTIVE providing the service under Physical Therapy direction. Initiate Physical Therapy intervention for strengthening, bed mobility, transfers, gait, stairs, balance training, use of assistive device. DISCHARGE RECOMMENDATIONS: Return to SNF whne medically cleared by hopsitalist. TREATMENT CODE/TIME: 51401 x 20 minutes for 1 unit, 39742 x 39 minutes for 3 units (15:21-16:20). Thank you for the opportunity to participate in the care of this patient. Jayne Seals PT, DPT, CLT [facility] [place], [place]
[2025-02-16] MEDS: LORazepam 0.5 MG TAB PO (15:32)
[2025-02-16] MEDS: oxyCODONE 5 MG TAB PO (17:43)
[2025-02-16] MEDS: traZODone 100 MG TAB 150 MG PO (20:42)
[2025-02-16] MEDS: cefTRIAXone 1 GM/50 ML BAG IVPB (20:43)
[2025-02-16] MEDS: Atorvastatin 40 MG TAB PO (20:43)
[2025-02-16 23:22] LABS: Legionella Ag Detection Urine Negative (Negative)
[2025-02-17] MEDS: Metoprolol 25 MG TAB PO ×2 (04:20→11:33)
[2025-02-17] MEDS: LORazepam 0.5 MG TAB PO (04:20)
[2025-02-17 07:12] LABS: Abs Immature Grans 0.12 10^3/uL (0.0-0.06); HCT 32.1 % (40.0-50.0); HGB 9.4 g/dL (13.5-17.5); Immature Grans % 0.9 %; MCH 24.1 pg (27.0-33.0); MCHC 29.3 % (32.0-36.0); MCV 82 fL (80-95); MPV 9.4 fL (8.0-11.0); Platelet Count 297 10^3/uL (130-400); RBC 3.90 10^6/uL (4.36-5.78); RDW 16.8 % (11.8-14.1); RDW-SD 49.6 fL; WBC 13.27 10^3/uL (4.4-10.8)
[2025-02-17 07:21] VITALS: BP 114/74; PULSE 79; RESP 17; TEMP 36.7; O2SAT 96
[2025-02-17 07:45] LABS: Anion Gap 3.4 mmol/L (3-11); BUN 26 mg/dL (7-18); CO2 31.6 mmol/L (21.0-32.0); Calcium 8.6 mg/dL (8.5-10.1); Chloride 99 mmol/L (98-107); Estimated GFR 90.58 (mL/min/1.73m2); Glucose 81 mg/dL (74-106); Potassium 4.5 mmol/L (3.5-5.1); Sodium 134 mmol/L (136-145)
[2025-02-17] MEDS: Normal Saline Flush 10 ML SYR IVP (07:50)
[2025-02-17] MEDS: Enoxaparin 40 MG/0.4 ML SYR SC (07:51)
[2025-02-17] MEDS: Omeprazole 20 MG CAPCR PO (07:51)
[2025-02-17] MEDS: risperiDONE 1 MG TAB PO (07:51)
[2025-02-17] MEDS: Finasteride 5 MG TAB PO (07:51)
[2025-02-17] MEDS: Furosemide 20 MG TAB 10 MG PO (07:51)
[2025-02-17] MEDS: Multivitamin TAB 1 TAB PO (07:51)
[2025-02-17] MEDS: guaiFENesin 600 MG TABCR 1200 MG PO (07:51)
[2025-02-17] MEDS: Cholecalciferol (Vitamin D3) 1,000 UNIT TAB 1000 UNITS PO (07:52)
[2025-02-17 08:30] VITALS: PULSE 84; RESP 18; O2SAT 94
[2025-02-17] MEDS: Albuterol/Ipratropium 3 ML UPD VIAL UPD (08:30)
--- NOTE | 2025-02-17 10:37 | DSE_ITS ---
Date of service: 02/17/25 Time of Service: 10:37 DS: Diagnosis Discharge Diagnosis (1) Aspiration pneumonia: Status: Acute (2) Acute hypercapnic respiratory failure: Status: Acute (3) Atrial fibrillation: Status: Chronic (4) CHF (congestive heart failure): Status: Chronic (5) Essential (primary) hypertension: Status: Chronic (6) Dementia with behavioral disturbance: Status: Chronic (7) Hyperlipidemia: Status: Chronic (8) Chronic low back pain: Status: Chronic (9) ASCVD (arteriosclerotic cardiovascular disease): Status: Chronic (10) Anemia: Status: Chronic (11) Rash: Status: Acute (12) Discharge planning issues: Status: Acute Discharge Plan Disposition Patient Disposition: Retirement Facility(SNF) Condition: Improving Discharge Details Reason For Visit: Pneumonia, Acute Hypoxic Respiratory Failure Admit Date/Time: 02/15/25 11:32 Admit Provider: Gerson Zhang Attending Provider: Gerson Zhang Primary Care Provider: Brijesh Elliott Hospital Course Hospital Course: This is a 79-year-old male patient past medical history significant for dementia, atrial fibrillation , HTN, recurrent pneumonia, aspiration who presented to the emergency department for complaints of productive cough over the last several days. His workup in the emergency department is concerning for a pneumonia without meeting sepsis criteria despite soft systolic blood pressure around 100. He was placed on Levaquin but was stooped d/t concerns with QT prolongation with administration of IV magnesium. New oxygen requirement of 2 L via nasal cannula with a VBG PH at 7.27 and a PCO2 at 65 also noted. The patient was admitted to the medical surgical floor for acute respiratory failure with hypercapnia, COPD exacerbation, and pneumonia. Legionella urine sent d/t multiple cases of legionella pneumonia at the rehab facility w/o qualifying for outbreak; result still pending. The patient was treated with ceftriaxone and doxycycline which was transitioned to azithromycin d/t a previous history of vomiting with doxycycline. Continue pulmonary toilet with cough and deep breathing and acapella. Continue physical therapy. Speech therapy consult completed with following recommendations to be continued at the SNF: Diet Recommendations: ?SOLIDS:6-Soft & Bite-Sized Solids/LIQUIDS: 0-Thin Liquids MEDICATIONS: Whole -With 4-Purees RISK MANAGEMENT: Level of Assistance/Supervision: Provide set-up assist with initial verbal reminders for aspiration precautions as below Intermittent supervision for all PO intake Positioning and environment: PO intake only when awake/alert? .Reduce auditory and/or visual distractions when eating. As upright as tolerated, use HOB controls/bed tilt to achieve upright positioning Oral hygiene Before/after PO intake -Using friction with toothbrush on all oral structures as tolerated Strategies/Adaptations/Assistive Equipment: Small sips , small bites Slow rate of intake (breathing breaks) Alternate intake of liquids and solids Reflux Precautions: Maintain fully upright position at least 30 minutes after meals. Avoid meals/snacks 2-3 hours prior to reclining/sleeping Sleep with head of bed elevated to reduce likelihood of nocturnal reflux Suggested Referrals/Consults: Physical Therapy Discharge Recommendations: Place outpatient MBSS orders Wound consult completed with following recommendation to be continued at the SNF facility: Treatment/Dressing Change Cleanse With: Cleanser with Surfactant Dressing Types: Xeroform and Other (skinfold Dry sheet) Dressing Comment: Skinfold Dry Sheet secured w/ paper tape Nutrition Education Reviewed Nutrition Education: No Recomendation Recomendation:: Groin Remove old dressing Cleanse with wound cleanser let dwell for 2 minutes pat dry with gauze Apply xeroform to affected areas on inside of thighs Cover w/ Skinfold Dry sheets Secure with paper tape Change Qshift and PRN if soiled. The patient improved clinically and has no further oxygen requirement and remained hemodynamically stable and will be discharged to his SNF facility with oral antibiotics and probiotics. Recommendation for PCP follow-up: Follow-up on legionella urine results Discussed with Dr. Rodríguez [place] Meds and New Rx's Prescriptions: New azithromycin 500 mg tablet 500 mg PO DAILY 5 Days Qty: 5 0RF cefpodoxime 200 mg tablet 200 mg PO BID Qty: 10 0RF Rx Instructions: must administer with a meal/food Bio-K plus 50 billion cell capsule,delayed release(DR/EC) 1 cap PO DAILY Qty: 7 0RF Rx Instructions: Take 3 hours apart from antibiotics ipratropium-albuterol 0.5 mg-3 mg(2.5 mg base)/3 mL Solution For Nebulization 3 ml UPD QID Qty: 90 0RF Continued atorvastatin 40 mg tablet 40 mg PO HS omeprazole 20 mg capsule,delayed release(DR/EC) 20 mg PO DAILY trazodone 100 MG tablet 150 mg PO HS finasteride 5 mg tablet 5 mg PO DAILY oxycodone 5 mg capsule 5 mg PO Q6H PRN PRN (Reason: severe pain (scale score 7-10)) risperidone [Risperdal] 1 mg tablet 1 mg PO BID venlafaxine 75 mg tablet 150 mg PO DAILY cholecalciferol (vitamin D3) 25 mcg (1,000 unit) capsule 1,000 unit PO DAILY metoprolol tartrate 25 mg tablet 25 mg PO Q6H polyethylene glycol 3350 [Miralax] 17 gram powder in packet 17 g PO BID PRN PRN sennosides-docusate sodium [Senna-S] 8.6-50 mg tablet 2 tab PO BID lorazepam [Ativan] 0.5 mg tablet 0.5 mg PO Q8H PRN PRN (Reason: agitation) albuterol sulfate 90 mcg/actuation HFA aerosol inhaler 2 puff inhalation Q4H PRN PRN (Reason: wheezing) clindamycin phosphate [Cleocin T] 1 % lotion 1 applic topical BID Patient Comments: apply to perineum topically BID for rash chlorhexidine gluconate [Peridex] 0.12 % mouthwash 15 ml PO BID Patient Comments: swish and spit 15 mL BID after oral care sodium phosphates 19-7 gram/118 mL enema 118 ml [place] DIRECTED PRN Patient Comments: insert one application rectally as needed if no results from bisacodyl suppository after 24 hours GlucaGen HypoKit 1 mg recon soln 1 mg IM DIRECTED PRN Patient Comments: Inject 1 mg IM as needed for BG less than 70 and patient is not arousable, conscious or able to swallow. Repeat BG in 15 minutes glucose gel 1 dose PO DIRECTED PRN Patient Comments: 77.4 % gel. Give one dose by mouth as needed for BG les than 70 if patient is arousable, conscious and able to swallow. Repeat BG in 15 min nystatin 100,000 unit/gram cream 1 applic topical TID sorbitol 70 % solution 15 ml PO ONCE PRN Combivent Respimat 20-100 mcg/actuation mist 1 puff inhalation Q6H PRN PRN (Reason: bronchospasm) nitroglycerin 0.4 mg tablet, sublingual 0.4 mg sublingual Q5 MIN PRN X3 PRN Rx Instructions: do not exceed 3 doses per episode lidocaine [Aspercreme (lidocaine)] 4 % adhesive patch,medicated 1 patch topical DAILY PRN Super Thera Ada M Tablet 1 tab PO DAILY guaifenesin [Mucinex] 1,200 mg tablet extended release 12hr 1,200 mg PO BID acetaminophen 325 mg capsule 975 mg PO .Q8 PRN furosemide [Lasix] 20 mg tablet 10 mg PO DAILY Discharge Instructions Referrals: Brijesh Elliott [Primary Care Provider, Medicine] Referral Note: Please call to schedule an appointment . Follow-up with PCP within 7 days of discharge Activity:: Activity as Tolerated Equipment/Supplies:: Walker Diet:: As per SPL recommendations Discharge Orders Discharge Orders: Discharge Order (Routine); Ordered 02/17/25 Ordered By: Vivien Ch DS: Summary Time Spent with Patient providing and/or coordinating discharge services: Greater than 30 minutes Status at Discharge Functional status at discharge: uses cane/walker Overall status at discharge: patient is progressing back to baseline Mental Status: mental status grossly normal Speech and Movement: speech and movement normal Mood: congruent mood Affect: normal affect Exam Narrative Exam Narrative: 79-year-old male looking older than stated age on room air without acute distress, alert and oriented x 3 uncertain about date, no acute neurological deficit, unlabored breathing clear lungs w decreased left base, abdomen non- distended , soft , non-tender, moves all 4 ext, redness erythema to bilat groin Psych Mental Status: mental status grossly normal Speech and Movement: speech and movement normal Mood: congruent mood Affect: normal affect DS: Data Vitals/I&O Vitals and I&O: Vital Signs Temperature 36.7 C 02/17/25 07:21 Temperature Source Temporal Artery Scan 02/17/25 07:21 Pulse 84 02/17/25 08:30 Pulse 69 02/15/25 18:32 Respiratory Rate 18 02/17/25 08:30 Respiratory Effort Normal 02/15/25 14:58 Respiratory Depth Normal 02/15/25 14:58 Respiratory Pattern Normal 02/15/25 14:58 Blood Pressure 114/74 02/17/25 07:21 Blood Pressure Mean 87 02/17/25 07:21 Blood Pressure Position Sitting 02/15/25 09:10 Pulse Oximetry 94 02/17/25 08:30 Respiratory End-tidal CO2 46 02/15/25 11:11 Oxygen Delivery Method Room Air 02/17/25 08:30 Oxygen Flow Rate 0 02/17/25 08:30 Pain Level 7 02/17/25 07:21 Intake & Output 02/16/25 02/16/25 02/17/25 11:59 23:59 11:59 Intake Total 100 / 250 150 / 250 Output Total 325 / 325 Balance 100 / 250 150 / 250 -325 / -325 Intake: IV 100 / 250 150 / 250 Output: Urine 325 / 325 Other: Urine Color Yellow Yellow Yellow Urine Appearance Clear Clear Clear Urine Odor Normal Normal Normal Comment pt declined change of brief. Stool Size Moderate Moderate Copious Stool Characteristics Soft Soft Liquid Brown Brown Brown Data Completed and Pending Labs on day of discharge: Labs from last 24 hours 02/17/25 06:34 WBC 13.27 H RBC 3.90 L Hgb 9.4 L Hct 32.1 L MCV 82 MCH 24.1 L MCHC 29.3 L RDW 16.8 H Plt Count 297 MPV 9.4 Immature Gran % 0.9 Neutrophils % 70.9 Lymphocytes % 17.6 Monocytes % 8.9 Eosinophils % 1.3 Basophils % 0.4 Nucleated RBC % 0.0 Absolute Neutrophils 9.41 H Absolute Lymphocytes 2.34 Absolute Monocytes 1.18 H Absolute Eosinophils 0.17 Absolute Basophils 0.05 Sodium 134 L Potassium 4.5 Chloride 99 Carbon Dioxide 31.6 Anion Gap 3.4 BUN 26 H Creatinine 0.8 Est GFR (CKD-EPI 2020) 90.58 Glucose 81 Calcium 8.6 Preliminary micro results at discharge 02/15/25 09:55 Blood Blood Culture - Preliminary NO GROWTH 24 HOURS 02/15/25 09:30 Blood Blood Culture - Preliminary NO GROWTH 24 HOURS PFSH All Active Problems (Updated 02/16/25 @ 14:07 by Vivien Ch APRN) Discharge planning issues (Acute) Rash (Acute) COPD exacerbation (Acute) Hypotension (Acute) Acute respiratory acidosis (Acute) Hypoxemia (Acute) HCAP (healthcare-associated pneumonia) (Acute) Compression fracture of T12 vertebra (Acute) Anemia (Chronic) COPD exacerbation (Acute) Decubitus ulcer of sacral area (Acute) Aspiration pneumonia (Acute) Dementia with behavioral disturbance (Chronic) Aspiration pneumonia (Acute) Anemia (Chronic) CHF (congestive heart failure) (Chronic) Acute hypercapnic respiratory failure (Acute) Yeast infection of the skin (Acute) Acute respiratory failure with hypoxia and hypercarbia (Acute) Hemopneumothorax on left (Acute) Pain in joint, foot, left (Acute) Corns and callosities (Acute) Cellulitis (Acute) Venous (peripheral) insufficiency (Acute) PAD (peripheral artery disease) (Acute) Onychomycosis (Acute) Neuropathy (Acute) Atrial fibrillation (Chronic) Hearing loss (Acute) with subjective 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 Mononeuritis (Acute) Hyperlipidemia (Chronic) Essential (primary) hypertension (Chronic) BPH (benign prostatic hyperplasia) (Chronic) ADHD (Acute) ASCVD (arteriosclerotic cardiovascular disease) (Chronic) Long-term current use of opiate analgesic (Acute) Tobacco use disorder (Chronic) Venous stasis dermatitis (Acute) Peripheral edema (Acute) 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 Frequent falls (Acute) Medical History (Updated 02/16/25 @ 14:07 by Vivien Ch APRN) Viral meningitis Complete rotator cuff tear right Cervical spondylosis Bursitis 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 Exposure to Agent [place] Social History Smoking/Tobacco Use Status: Current every day Tobacco Type: cigarettes Smoking packs per day: 1 Smoking cigarettes per day: 20.0 Years smoked: 50 Smoking pack- years: 50.00 Smoking risk assessment performed?: Yes Alcohol Intake: never Drug use: Never Substance use type: does not use Housing: senior living Do you feel safe at home: Yes Do you feel safe in your relationship?: Yes Time Spent with Patient Time Spent with Patient: >85 minutes Time was spent: preparing to see the patient(eg.review tests), obtaining and/or reviewing separately otained hiistory, ordering medications,tests, procedures, referring, communicating with other health critical care unit nurse, indepentently interpreting results, counseling the patient, care coordination and other
--- NOTE | 2025-02-17 11:22 | PDOC.CMDIS ---
Date of service: 02/17/25 Time of Service: 12:30 LACE Index Scoring Tool Questions: Length of Stay (in days): 2 Was the patient admitted via the E.D.?: Yes Comorbidities: Congestive Heart Failure, Chronic Pulmonary Disease and Dementia E.D. Visits: 5 Answers: Total Score: 14 Risk of Readmission: High Risk Care Management Discharge Plan Reason for Hospitalization: Pneumonia, acute hypoxic respiratory failure Discharge Plan: Bijan will be discharged back to [facility] where he resides. It is recommended he follow up with his community providers, and discharge plan of care. He will transport via [facility]. CM notified [facility] of discharge time and mode of transportation. Patient/Family Education Needs: Review of discharge instructions, activity, limitation, and plan of care. Discuss ask me three. Services Needed at Discharge: [facility] Facility
[2025-02-17] MEDS: DOXYCYCLINE 100 MG in Normal Saline 100 ML IVPB (11:33)
[2025-02-17 12:23] LABS: Lab Add On Test DONE
[2025-02-17 12:31] LABS: Magnesium 1.7 mg/dL (1.8-2.4)
--- NOTE | 2025-02-17 12:57 | W.PM.DS.N ---
Date of service: 02/17/25 Time of Service: 10:37 DS: Diagnosis Discharge Diagnosis (1) Aspiration pneumonia: Status: Acute (2) Acute hypercapnic respiratory failure: Status: Acute (3) Atrial fibrillation: Status: Chronic (4) CHF (congestive heart failure): Status: Chronic (5) Essential (primary) hypertension: Status: Chronic (6) Dementia with behavioral disturbance: Status: Chronic (7) Hyperlipidemia: Status: Chronic (8) Chronic low back pain: Status: Chronic (9) ASCVD (arteriosclerotic cardiovascular disease): Status: Chronic (10) Anemia: Status: Chronic (11) Rash: Status: Acute (12) Discharge planning issues: Status: Acute Discharge Plan Disposition Patient Disposition: Long Term Facility(SNF) Condition: Improving Discharge Details Reason For Visit: Pneumonia, Acute Hypoxic Respiratory Failure Admit Date/Time: 02/15/25 11:32 Admit Provider: Gerson Zhang Attending Provider: Gerson Zhang Primary Care Provider: Brijesh Elliott Hospital Course Hospital Course: This is a 79-year-old male patient past medical history significant for dementia, atrial fibrillation , HTN, recurrent pneumonia, aspiration who presented to the emergency department for complaints of productive cough over the last several days. His workup in the emergency department is concerning for a pneumonia without meeting sepsis criteria despite soft systolic blood pressure around 100. He was placed on Levaquin but was stooped d/t concerns with QT prolongation with administration of IV magnesium. New oxygen requirement of 2 L via nasal cannula with a VBG PH at 7.27 and a PCO2 at 65 also noted. The patient was admitted to the medical surgical floor for acute respiratory failure with hypercapnia, COPD exacerbation, and pneumonia. Legionella urine sent d/t multiple cases of legionella pneumonia at the rehab facility w/o qualifying for outbreak; result still pending. The patient was treated with ceftriaxone and doxycycline which was transitioned to azithromycin d/t a previous history of vomiting with doxycycline. Continue pulmonary toilet with cough and deep breathing and acapella. Continue physical therapy. Speech therapy consult completed with following recommendations to be continued at the SNF: Diet Recommendations: ?SOLIDS:6-Soft & Bite-Sized Solids/LIQUIDS: 0-Thin Liquids MEDICATIONS: Whole -With 4-Purees RISK MANAGEMENT: Level of Assistance/Supervision: Provide set-up assist with initial verbal reminders for aspiration precautions as below Intermittent supervision for all PO intake Positioning and environment: PO intake only when awake/alert? .Reduce auditory and/or visual distractions when eating. As upright as tolerated, use HOB controls/bed tilt to achieve upright positioning Oral hygiene Before/after PO intake -Using friction with toothbrush on all oral structures as tolerated Strategies/Adaptations/Assistive Equipment: Small sips , small bites Slow rate of intake (breathing breaks) Alternate intake of liquids and solids Reflux Precautions: Maintain fully upright position at least 30 minutes after meals. Avoid meals/snacks 2-3 hours prior to reclining/sleeping Sleep with head of bed elevated to reduce likelihood of nocturnal reflux Suggested Referrals/Consults: Physical Therapy Discharge Recommendations: Place outpatient MBSS orders Wound consult completed with following recommendation to be continued at the SNF facility: Treatment/Dressing Change Cleanse With: Cleanser with Surfactant Dressing Types: Xeroform and Other (skinfold Dry sheet) Dressing Comment: Skinfold Dry Sheet secured w/ paper tape Nutrition Education Reviewed Nutrition Education: No Recomendation Recomendation:: Groin Remove old dressing Cleanse with wound cleanser let dwell for 2 minutes pat dry with gauze Apply xeroform to affected areas on inside of thighs Cover w/ Skinfold Dry sheets Secure with paper tape Change Qshift and PRN if soiled. The patient improved clinically and has no further oxygen requirement and remained hemodynamically stable and will be discharged to his SNF facility with oral antibiotics and probiotics. Recommendation for PCP follow-up: Follow-up on legionella urine results Discussed with Dr. Rodríguez [place] Meds and New Rx's Prescriptions: New azithromycin 500 mg tablet 500 mg PO DAILY 5 Days Qty: 5 0RF cefpodoxime 200 mg tablet 200 mg PO BID Qty: 10 0RF Rx Instructions: must administer with a meal/food Bio-K plus 50 billion cell capsule,delayed release(DR/EC) 1 cap PO DAILY Qty: 7 0RF Rx Instructions: Take 3 hours apart from antibiotics ipratropium-albuterol 0.5 mg-3 mg(2.5 mg base)/3 mL Solution For Nebulization 3 ml UPD QID Qty: 90 0RF Continued atorvastatin 40 mg tablet 40 mg PO HS omeprazole 20 mg capsule,delayed release(DR/EC) 20 mg PO DAILY trazodone 100 MG tablet 150 mg PO HS finasteride 5 mg tablet 5 mg PO DAILY oxycodone 5 mg capsule 5 mg PO Q6H PRN PRN (Reason: severe pain (scale score 7-10)) risperidone [Risperdal] 1 mg tablet 1 mg PO BID venlafaxine 75 mg tablet 150 mg PO DAILY cholecalciferol (vitamin D3) 25 mcg (1,000 unit) capsule 1,000 unit PO DAILY metoprolol tartrate 25 mg tablet 25 mg PO Q6H polyethylene glycol 3350 [Miralax] 17 gram powder in packet 17 g PO BID PRN PRN sennosides-docusate sodium [Senna-S] 8.6-50 mg tablet 2 tab PO BID lorazepam [Ativan] 0.5 mg tablet 0.5 mg PO Q8H PRN PRN (Reason: agitation) albuterol sulfate 90 mcg/actuation HFA aerosol inhaler 2 puff inhalation Q4H PRN PRN (Reason: wheezing) clindamycin phosphate [Cleocin T] 1 % lotion 1 applic topical BID Patient Comments: apply to perineum topically BID for rash chlorhexidine gluconate [Peridex] 0.12 % mouthwash 15 ml PO BID Patient Comments: swish and spit 15 mL BID after oral care sodium phosphates 19-7 gram/118 mL enema 118 ml ME DIRECTED PRN Patient Comments: insert one application rectally as needed if no results from bisacodyl suppository after 24 hours GlucaGen HypoKit 1 mg recon soln 1 mg IM DIRECTED PRN Patient Comments: Inject 1 mg IM as needed for BG less than 70 and patient is not arousable, conscious or able to swallow. Repeat BG in 15 minutes glucose gel 1 dose PO DIRECTED PRN Patient Comments: 77.4 % gel. Give one dose by mouth as needed for BG les than 70 if patient is arousable, conscious and able to swallow. Repeat BG in 15 min nystatin 100,000 unit/gram cream 1 applic topical TID sorbitol 70 % solution 15 ml PO ONCE PRN Combivent Respimat 20-100 mcg/actuation mist 1 puff inhalation Q6H PRN PRN (Reason: bronchospasm) nitroglycerin 0.4 mg tablet, sublingual 0.4 mg sublingual Q5 MIN PRN X3 PRN Rx Instructions: do not exceed 3 doses per episode lidocaine [Aspercreme (lidocaine)] 4 % adhesive patch,medicated 1 patch topical DAILY PRN Super Thera Ada M Tablet 1 tab PO DAILY guaifenesin [Mucinex] 1,200 mg tablet extended release 12hr 1,200 mg PO BID acetaminophen 325 mg capsule 975 mg PO .Q8 PRN furosemide [Lasix] 20 mg tablet 10 mg PO DAILY Discharge Instructions Referrals: Brijesh Elliott [Primary Care Provider, Medicine] Referral Note: Please call to schedule an appointment . Follow-up with PCP within 7 days of discharge Activity:: Activity as Tolerated Equipment/Supplies:: Walker Diet:: As per SPL recommendations Discharge Orders Discharge Orders: Discharge Order (Routine); Ordered 02/17/25 Ordered By: Vivien Ch Discharge Data Discharge Date/Time-TO BE ENTERED AT DEPARTURE: 02/17/25 13:00 DS: Summary Time Spent with Patient providing and/or coordinating discharge services: Greater than 30 minutes Status at Discharge Functional status at discharge: uses cane/walker Overall status at discharge: patient is progressing back to baseline Mental Status: mental status grossly normal Speech and Movement: speech and movement normal Mood: congruent mood Affect: normal affect Exam Narrative Exam Narrative: 79-year-old male looking older than stated age on room air without acute distress, alert and oriented x 3 uncertain about date, no acute neurological deficit, unlabored breathing clear lungs w decreased left base, abdomen non-distended , soft , non-tender, moves all 4 ext, redness erythema to bilat groin Psych Mental Status: mental status grossly normal Speech and Movement: speech and movement normal Mood: congruent mood Affect: normal affect Psych Mental Status: mental status grossly normal Speech and Movement: speech and movement normal Mood: congruent mood Affect: normal affect DS: Data Vitals/I&O Vitals and I&O: Vital Signs Temperature 36.7 C 02/17/25 07:21 Temperature Source Temporal Artery Scan 02/17/25 07:21 Pulse 84 02/17/25 08:30 Pulse 69 02/15/25 18:32 Respiratory Rate 18 02/17/25 08:30 Respiratory Effort Normal 02/15/25 14:58 Respiratory Depth Normal 02/15/25 14:58 Respiratory Pattern Normal 02/15/25 14:58 Blood Pressure 114/74 02/17/25 07:21 Blood Pressure Mean 87 02/17/25 07:21 Blood Pressure Position Sitting 02/15/25 09:10 Pulse Oximetry 94 02/17/25 08:30 Respiratory End-tidal CO2 46 02/15/25 11:11 Oxygen Delivery Method Room Air 02/17/25 08:30 Oxygen Flow Rate 0 02/17/25 08:30 Pain Level 7 02/17/25 07:21 Intake & Output 02/16/25 02/17/25 02/17/25 23:59 11:59 23:59 Intake Total 150 / 250 Output Total 325 / 325 Balance 150 / 250 -325 / -325 Intake: IV 150 / 250 Output: Urine 325 / 325 Other: Urine Color Yellow Yellow Urine Appearance Clear Clear Urine Odor Normal Normal Comment pt declined change of brief. Stool Size Moderate Copious Stool Characteristics Soft Liquid Brown Brown Data Completed and Pending Labs on day of discharge: Labs from last 24 hours 02/17/25 06:34 WBC 13.27 H RBC 3.90 L Hgb 9.4 L Hct 32.1 L MCV 82 MCH 24.1 L MCHC 29.3 L RDW 16.8 H Plt Count 297 MPV 9.4 Immature Gran % 0.9 Neutrophils % 70.9 Lymphocytes % 17.6 Monocytes % 8.9 Eosinophils % 1.3 Basophils % 0.4 Nucleated RBC % 0.0 Absolute Neutrophils 9.41 H Absolute Lymphocytes 2.34 Absolute Monocytes 1.18 H Absolute Eosinophils 0.17 Absolute Basophils 0.05 Sodium 134 L Potassium 4.5 Chloride 99 Carbon Dioxide 31.6 Anion Gap 3.4 BUN 26 H Creatinine 0.8 Est GFR (CKD-EPI 2020) 90.58 Glucose 81 Calcium 8.6 Magnesium 1.7 L Add-On Test Request DONE Preliminary micro results at discharge 02/15/25 09:55 Blood Blood Culture - Preliminary NO GROWTH 48 HOURS 02/15/25 09:30 Blood Blood Culture - Preliminary NO GROWTH 48 HOURS PFSH All Active Problems (Updated 02/16/25 @ 14:07 by Vivien Ch APRN) Discharge planning issues (Acute) Rash (Acute) COPD exacerbation (Acute) Hypotension (Acute) Acute respiratory acidosis (Acute) Hypoxemia (Acute) HCAP (healthcare-associated pneumonia) (Acute) Compression fracture of T12 vertebra (Acute) Anemia (Chronic) COPD exacerbation (Acute) Decubitus ulcer of sacral area (Acute) Aspiration pneumonia (Acute) Dementia with behavioral disturbance (Chronic) Aspiration pneumonia (Acute) Anemia (Chronic) CHF (congestive heart failure) (Chronic) Acute hypercapnic respiratory failure (Acute) Yeast infection of the skin (Acute) Acute respiratory failure with hypoxia and hypercarbia (Acute) Hemopneumothorax on left (Acute) Pain in joint, foot, left (Acute) Corns and callosities (Acute) Cellulitis (Acute) Venous (peripheral) insufficiency (Acute) PAD (peripheral artery disease) (Acute) Onychomycosis (Acute) Neuropathy (Acute) Atrial fibrillation (Chronic) Hearing loss (Acute) with subjective 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 Mononeuritis (Acute) Hyperlipidemia (Chronic) Essential (primary) hypertension (Chronic) BPH (benign prostatic hyperplasia) (Chronic) ADHD (Acute) ASCVD (arteriosclerotic cardiovascular disease) (Chronic) Long-term current use of opiate analgesic (Acute) Tobacco use disorder (Chronic) Venous stasis dermatitis (Acute) Peripheral edema (Acute) 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 Frequent falls (Acute) Medical History (Updated 02/16/25 @ 14:07 by Vivien Ch APRN) Viral meningitis Complete rotator cuff tear right Cervical spondylosis Bursitis 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 Exposure to Agent [place] Social History Smoking/Tobacco Use Status: Current every day Tobacco Type: cigarettes Smoking packs per day: 1 Smoking cigarettes per day: 20.0 Years smoked: 50 Smoking pack-years: 50.00 Smoking risk assessment performed?: Yes Alcohol Intake: never Drug use: Never Substance use type: does not use Housing: fpc Do you feel safe at home: Yes Do you feel safe in your relationship?: Yes Time Spent with Patient Time Spent with Patient: >85 minutes Time was spent: preparing to see the patient(eg.review tests), obtaining and/or reviewing separately otained hiistory, ordering medications,tests, procedures, referring, communicating with other health social worker palliative care, indepentently interpreting results, counseling the patient, care coordination and other
[2025-02-17] MEDS: Azithromycin 250 MG TAB 500 MG PO (13:00)
== END 2025-02-17 13:00 | disposition skilled nursing facility (03) | DRG 177 ==
LOC: ER 11:12 → MS 12:25
PROVIDERS: Nurse Practitioner Acute Care; Admitting Provider Family Medicine; Emergency Provider Student in an Organized Health Care Education/Training Program; PCP Internal Medicine; Responsible Provider Nurse Practitioner Acute Care; Visit Provider Family Medicine
DX: J69.0 Pneumonitis due to inhalation of food and vomit (principal); J96.02 Acute respiratory failure with hypercapnia; I48.20 Chronic atrial fibrillation, unspecified; I11.0 Hypertensive heart disease with heart failure; I50.9 Heart failure, unspecified; F03.918 Unspecified dementia, unspecified severity, with other behavioral disturbance; E78.5 Hyperlipidemia, unspecified; G89.29 Other chronic pain; M54.50 Low back pain, unspecified; I25.10 Atherosclerotic heart disease of native coronary artery without angina pectoris; D63.8 Anemia in other chronic diseases classified elsewhere; R21 Rash and other nonspecific skin eruption; J44.0 Chronic obstructive pulmonary disease with (acute) lower respiratory infection; J44.1 Chronic obstructive pulmonary disease with (acute) exacerbation; B37.2 Candidiasis of skin and nail; I87.2 Venous insufficiency (chronic) (peripheral); I73.9 Peripheral vascular disease, unspecified; B35.1 Tinea unguium; G62.9 Polyneuropathy, unspecified; F90.9 Attention-deficit hyperactivity disorder, unspecified type; N40.0 Benign prostatic hyperplasia without lower urinary tract symptoms; R29.6 Repeated falls; Z79.891 Long term (current) use of opiate analgesic; F17.210 Nicotine dependence, cigarettes, uncomplicated; R94.31 Abnormal electrocardiogram [ECG] [EKG]
CPT/HCPCS: 00123; 36415; 80048; 80053; 82805; 87040; 87449; 87637; 92610; 94640; 96361; 96365; 96375; 97162; 97530; 99291; J1650; 71045; 81003; 81015; 83605; 83735; 83880; 84484; 85025; 85610; 85730; 93005; 93010; 94667; 94668; 94760; 99222; 99233; 99239; J0696; J1956; J2919; J3475; J7620

== ENCOUNTER 2025-03-19 22:39 | Emergency (ER) | payer MEDICARE, SELFPAY ==
[2025-03-19] VITALS (10 sets, daily range): BP systolic 104; BP diastolic 63; PULSE 78–99; RESP 20; TEMP 36.8; O2SAT 96–100
--- NOTE | 2025-03-19 23:30 | RT.EKG_ITS ---
APPROVED REPORT Exam: Resting ECG Reason for Exam: shortness of breath Patient Location: E HR:78 bpm ECG Measurements Heart Rate 78 AXIS CA [id number] P [id number] QRSd 97 QRS -13 QT 405 T 23 QTc 463 Conclusion Atrial fibrillation...V-rate 57- 94, irreg A-activity Low voltage, extremity leads...all extremity leads <0.5mV
--- NOTE | 2025-03-19 23:30 | DI.RAD_ITS ---
Exam(s) XR CHEST 2V PA LATERAL EXAM: XR CHEST 2V PA LATERAL CLINICAL HISTORY: shortnedd of breath TECHNIQUE: 2D digital imaging was performed. Two views. COMPARISON: CR,XR XR CHEST 2V PA LATERAL from 02/04/2025 CR XR PORTABLE CHEST AP from 02/15/2025 FINDINGS: HEART: Mildly enlarged. Mitral annular calcification. Aorta: Not dilated. PULMONARY VASCULATURE: Normal. MEDIASTINUM: Unremarkable. LUNGS: The lateral view is suboptimally inflated. There are chronic interstitial markings. PLEURAL SPACE: Minimal blunting at the costophrenic angles. No pneumothorax. BONE:Fixation plates again noted in the left lateral ribs. Fixation plate in left clavicle. Advanced degenerative changes of the shoulders. SOFT TISSUES: Unremarkable. IMPRESSION: Chronic findings. No acute abnormality. The preliminary [facility] report was reviewed. DATA REPOSITORY: RADIATION DOSE DELIVERED:
[2025-03-19 23:55] LABS: Abs Immature Grans 0.11 10^3/uL (0.0-0.06); HCT 27.3 % (40.0-50.0); HGB 7.8 g/dL (13.5-17.5); Immature Grans % 0.8 %; MCH 23.9 pg (27.0-33.0); MCHC 28.6 % (32.0-36.0); MCV 84 fL (80-95); MPV 10.4 fL (8.0-11.0); Platelet Count 167 10^3/uL (130-400); RBC 3.26 10^6/uL (4.36-5.78); RDW 17.1 % (11.8-14.1); RDW-SD 52.4 fL; WBC 13.16 10^3/uL (4.4-10.8)
--- NOTE | 2025-03-19 23:55 | W.ED.GENAD ---
Discharge Plan Disposition Patient Disposition: Long-Term Facility(SNF) Condition: Good Discharge Details Clinical Impression: Observation for suspected condition Primary Care Provider: Brijesh Elliott ED Provider: Morris Gregory Home Meds and New Rx's Prescriptions: No Action atorvastatin 40 mg tablet 40 mg PO HS omeprazole 20 mg capsule,delayed release(DR/EC) 20 mg PO DAILY trazodone 100 MG tablet 150 mg PO HS finasteride 5 mg tablet 5 mg PO DAILY oxycodone 5 mg capsule 5 mg PO Q6H PRN PRN (Reason: severe pain (scale score 7-10)) risperidone [Risperdal] 1 mg tablet 1 mg PO BID venlafaxine 75 mg tablet 150 mg PO DAILY cholecalciferol (vitamin D3) 25 mcg (1,000 unit) capsule 1,000 unit PO DAILY metoprolol tartrate 25 mg tablet 25 mg PO Q6H polyethylene glycol 3350 [Miralax] 17 gram powder in packet 17 g PO BID PRN PRN sennosides-docusate sodium [Senna-S] 8.6-50 mg tablet 2 tab PO BID lorazepam [Ativan] 0.5 mg tablet 0.5 mg PO Q8H PRN PRN (Reason: agitation) albuterol sulfate 90 mcg/actuation HFA aerosol inhaler 2 puff inhalation Q4H PRN PRN (Reason: wheezing) clindamycin phosphate [Cleocin T] 1 % lotion 1 applic topical BID Patient Comments: apply to perineum topically BID for rash chlorhexidine gluconate [Peridex] 0.12 % mouthwash 15 ml PO BID Patient Comments: swish and spit 15 mL BID after oral care sodium phosphates 19-7 gram/118 mL enema 118 ml WA DIRECTED PRN Patient Comments: insert one application rectally as needed if no results from bisacodyl suppository after 24 hours GlucaGen HypoKit 1 mg recon soln 1 mg IM DIRECTED PRN Patient Comments: Inject 1 mg IM as needed for BG less than 70 and patient is not arousable, conscious or able to swallow. Repeat BG in 15 minutes glucose gel 1 dose PO DIRECTED PRN Patient Comments: 77.4 % gel. Give one dose by mouth as needed for BG les than 70 if patient is arousable, conscious and able to swallow. Repeat BG in 15 min nystatin 100,000 unit/gram cream 1 applic topical TID sorbitol 70 % solution 15 ml PO ONCE PRN cefpodoxime 200 mg tablet 200 mg PO BID Qty: 10 0RF Rx Instructions: must administer with a meal/food Bio-K plus 50 billion cell capsule,delayed release(DR/EC) 1 cap PO DAILY Qty: 7 0RF Rx Instructions: Take 3 hours apart from antibiotics ipratropium-albuterol 0.5 mg-3 mg(2.5 mg base)/3 mL Solution For Nebulization 3 ml UPD QID Qty: 90 0RF Combivent Respimat 20-100 mcg/actuation mist 1 puff inhalation Q6H PRN PRN (Reason: bronchospasm) nitroglycerin 0.4 mg tablet, sublingual 0.4 mg sublingual Q5 MIN PRN X3 PRN Rx Instructions: do not exceed 3 doses per episode lidocaine [Aspercreme (lidocaine)] 4 % adhesive patch,medicated 1 patch topical DAILY PRN Super Thera Ada M Tablet 1 tab PO DAILY guaifenesin [Mucinex] 1,200 mg tablet extended release 12hr 1,200 mg PO BID acetaminophen 325 mg capsule 975 mg PO .Q8 PRN furosemide [Lasix] 20 mg tablet 10 mg PO DAILY Discharge Instructions Additional Instructions: The patient did not have any increased work of breathing or hypoxia here in the ER. He had no complaints. His workup was negative for any acute findings. He likely has some chronic CHF and could potentially benefit from a modest increase in his lasix dose for a few days if symptoms return. Please contact his regular provider for re-evaluation and consideration of medication changes. Continue Qshift dressing changes for the suppurative hydratitinis as previsouly directed. The patient can always return to the ER for re-evaluation of any new concerns or sudden changes in health which you feel requires emergency medical attention. Discharge Data Discharge Physician: Morris Gregory HPI General Date/Time Provider Initiated Documentation: 03/19/25 23:19. HPI Narrative: The patient was sent over from the rehabilitation center across the street for complaints of hypoxia and shortness of breath. On arrival to the emergency room, the patient is on room air and has an oxygen saturation of 98%. The patient denies any shortness of breath but states they show think I did when I was over there. The patient denies having any increased coughing. The patient denies having any chest pain. The patient tells me that he is in no distress at this time. The patient has some mild swelling in his bilateral lower extremities, but he tells me that this is about my baseline. The patient tells me that he was a former smoker and has COPD and generally uses nebs several times a day at the facility. Related Data Home Medications ?Medication ?Instructions ?Recorded ?Confirmed trazodone 100 mg tablet 150 mg PO HS 08/09/13 02/15/25 atorvastatin 40 mg tablet 40 mg PO HS 02/06/23 02/15/25 omeprazole 20 mg capsule,delayed 20 mg PO DAILY 02/06/23 02/15/25 release finasteride 5 mg tablet 5 mg PO DAILY 06/03/24 02/15/25 oxycodone 5 mg capsule 5 mg PO Q6H PRN PRN severe pain 06/03/24 02/15/25 (scale score 7-10) ipratropium 20 mcg-albuterol 100 1 puff inhalation Q6H PRN PRN 08/07/24 02/15/25 mcg/actuation mist for inhalation bronchospasm (Combivent Respimat) nitroglycerin 0.4 mg sublingual 0.4 mg sublingual Q5 MIN PRN X3 PRN 08/07/24 02/15/25 tablet risperidone 1 mg tablet (Risperdal) 1 mg PO BID 10/19/24 02/15/25 venlafaxine 75 mg tablet 150 mg PO DAILY 10/19/24 02/15/25 cholecalciferol (vitamin D3) 25 1,000 unit PO DAILY 10/20/24 02/15/25 mcg (1,000 unit) capsule metoprolol tartrate 25 mg tablet 25 mg PO Q6H 10/20/24 02/15/25 polyethylene glycol 3350 17 gram 17 g PO BID PRN PRN 10/20/24 02/15/25 oral powder packet (Miralax) sennosides 8.6 mg-docusate sodium 2 tab PO BID 10/20/24 02/15/25 50 mg tablet (Senna-S) albuterol sulfate 90 mcg/actuation 2 puff inhalation Q4H PRN PRN 10/21/24 02/15/25 aerosol inhaler wheezing chlorhexidine gluconate 0.12 % 15 ml PO BID gingavitis 10/21/24 02/15/25 mouthwash (Peridex) clindamycin phosphate 1 % lotion 1 applic topical BID 10/21/24 02/15/25 (Cleocin T) glucagon 1 mg solution for 1 mg IM DIRECTED PRN 10/21/24 02/15/25 injection (GlucaGen HypoKit) glucose 1 dose PO DIRECTED PRN 10/21/24 02/15/25 lorazepam 0.5 mg tablet (Ativan) 0.5 mg PO Q8H PRN PRN agitation 10/21/24 02/15/25 sodium phosphates 19 gram-7 118 ml WA DIRECTED PRN 10/21/24 02/15/25 gram/118 mL enema acetaminophen 325 mg capsule 975 mg PO .Q8 PRN 11/02/24 02/15/25 guaifenesin 1,200 mg tablet, 1,200 mg PO BID 11/02/24 02/15/25 extended release 12 hr (Mucinex) lidocaine 4 % topical patch 1 patch topical DAILY PRN 11/02/24 02/15/25 (Aspercreme (lidocaine)) multivitamin,tx-minerals (Super 1 tab PO DAILY 11/02/24 02/15/25 Thera Ada M tablet) furosemide 20 mg tablet (Lasix) 10 mg PO DAILY 02/04/25 02/15/25 nystatin 100,000 unit/gram topical 1 applic topical TID 02/15/25 02/15/25 cream sorbitol 70 % solution 15 ml PO ONCE PRN 02/15/25 02/15/25 L. acidophilus,casei,rhamnosus 50 1 cap PO DAILY #7 caps 02/17/25 billion cell capsule,delayed release (Bio-K plus) cefpodoxime 200 mg tablet 200 mg PO BID #10 tabs 02/17/25 ipratropium 0.5 mg-albuterol 3 mg 3 ml UPD QID #90 mL 02/17/25 (2.5 mg base)/3 mL nebulization soln Previous Rx's ?Medication ?Instructions ?Recorded L. acidophilus,casei,rhamnosus 50 1 cap PO DAILY #7 caps 02/17/25 billion cell capsule,delayed release (Bio-K plus) cefpodoxime 200 mg tablet 200 mg PO BID #10 tabs 02/17/25 ipratropium 0.5 mg-albuterol 3 mg 3 ml UPD QID #90 mL 02/17/25 (2.5 mg base)/3 mL nebulization soln Allergies Allergy/AdvReac Type Severity Reaction Status Date / Time fluticasone Allergy Unknown Headache Verified 02/15/25 10:01 gabapentin Allergy Unknown Psychosis Verified 02/15/25 10:01 pregabalin Allergy Unknown Psychosis Verified 02/15/25 10:01 doxycycline AdvReac Intermediate vomiting Verified 02/15/25 10:01 morphine AdvReac Unknown Psychosis Verified 02/15/25 10:01 General Stated Complaint: SOB HAROLDO: 3 Exam Const General: cooperative and no acute distress Nutritional Appearance: overweight Orientation: alert and awake Resp Effort & Inspection: normal respiratory effort Auscultation: wheezes (Faint wheezing in both lung vaz) Cardio Rate: regular rate Rhythm: regular rhythm Heart Sounds: S1 normal and S2 normal GI Inspection: normal to inspection Palpation: soft Auscultation: normal bowel sounds Skin General skin exam: no rashes or lesions noted Neuro General: moves all extremities, normal light touch, pain and propioception, no focal motor deficits and CN's II-XI intact bilaterally Extrem General: edema (3+ bilateral pitting edema with rubric changes indicative of chronic venous) Laterality: bilateral Course The patient continued to do well here under observation without any interval development of increased work of breathing or hypoxia. The patient had a modestly elevated pro-BNP without any prior baseline to compare. The patient has a chest X-ray that appears as chronic or incipient CHF. This would correlation with his edema. He might benefit from some mild increase in his lasix dosing for a few days. I will relay this information to the care providers at his facility. He will be returned to his rehab facility as he lacks the need for inpatient management. Vital Signs Vital signs: Vital Signs Temperature 36.8 C 03/19/25 22:38 Pulse 86 03/19/25 22:38 Respiratory Rate 20 03/19/25 22:38 Blood Pressure 104/63 03/19/25 22:38 Pulse Oximetry 100 03/19/25 22:38 Temperature 36.8 C 03/19/25 22:38 Temperature Source Tympanic 03/19/25 22:38 Pulse 86 03/19/25 22:38 Respiratory Rate 20 03/19/25 22:48 Respiratory Effort Normal, Non-Labored 03/19/25 22:48 Blood Pressure 104/63 03/19/25 22:38 Pulse Oximetry 100 03/19/25 22:38 Oxygen Delivery Method Room Air 03/19/25 22:38 Oxygen Flow Rate 0 03/19/25 22:38 Medical Decision Making The patient was seen and examined. He is in no distress and has essentially normal vital signs here in the emergency room. The patient does not report feeling short of breath at this time and has both a normal oxygen saturation and normal work of breathing. The patient has no accessory muscle use or tachypnea present. The patient will have general cardiac screening labs as well as a chest x-ray to assess him for any obvious pathology. The patient does have some faint wheezing bilaterally in both of his lung vaz, but this is likely simple consequence of COPD disease. There does not appear to be an acute exacerbation at this time. Assuming that there is no obvious focal pneumonia found on the chest x-ray, or any significant pathology on his laboratory workup, the patient can likely return to his rehabilitation facility for ongoing management. [facility] All Active Problems (Updated 03/20/25 @ 02:35 by Morris Gregory MD) Observation for suspected condition (Acute) Rash (Acute) COPD exacerbation (Acute) Hypotension (Acute) Acute respiratory acidosis (Acute) Hypoxemia (Acute) HCAP (healthcare-associated pneumonia) (Acute) Compression fracture of T12 vertebra (Acute) Anemia (Chronic) COPD exacerbation (Acute) Decubitus ulcer of sacral area (Acute) Aspiration pneumonia (Acute) Dementia with behavioral disturbance (Chronic) Aspiration pneumonia (Acute) Anemia (Chronic) CHF (congestive heart failure) (Chronic) Yeast infection of the skin (Acute) Acute respiratory failure with hypoxia and hypercarbia (Acute) Hemopneumothorax on left (Acute) Pain in joint, foot, left (Acute) Corns and callosities (Acute) Cellulitis (Acute) Venous (peripheral) insufficiency (Acute) PAD (peripheral artery disease) (Acute) Onychomycosis (Acute) Neuropathy (Acute) Atrial fibrillation (Chronic) Hearing loss (Acute) with subjective 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 Mononeuritis (Acute) Hyperlipidemia (Chronic) Essential (primary) hypertension (Chronic) BPH (benign prostatic hyperplasia) (Chronic) ADHD (Acute) ASCVD (arteriosclerotic cardiovascular disease) (Chronic) Long-term current use of opiate analgesic (Acute) Tobacco use disorder (Chronic) Venous stasis dermatitis (Acute) Peripheral edema (Acute) 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 Frequent falls (Acute) Medical History (Updated 03/20/25 @ 02:35 by Morris Gregory MD) Viral meningitis Complete rotator cuff tear right Cervical spondylosis Bursitis 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
[2025-03-20] VITALS (12 sets, daily range): PULSE 78–91; O2SAT 90–98
[2025-03-20 00:18] LABS: Anion Gap 4.8 mmol/L (3-11); BUN 22 mg/dL (7-18); CO2 29.2 mmol/L (21.0-32.0); Calcium 7.7 mg/dL (8.5-10.1); Chloride 100 mmol/L (98-107); Estimated GFR 98.81 (mL/min/1.73m2); Glucose 108 mg/dL (74-106); Potassium 4.4 mmol/L (3.5-5.1); Sodium 134 mmol/L (136-145); Troponin I 8 ng/L (<or=76)
[2025-03-20 00:19] LABS: Hypochromasia 1+
[2025-03-20 00:39] LABS: NT-proBNP 3034 pg/mL (<300)
--- NOTE | 2025-03-20 00:43 | DI.VRAD_ITS ---
PROCEDURE INFORMATION: Exam: XR Chest Exam date and time: 03/20/2025 12:17 AM Age: 79 years old Clinical indication: Shortness of breath; Prior surgery; Surgery date: 6+ months; Surgery type: L clavicle and ribs; SOB TECHNIQUE: Imaging protocol: Radiologic exam of the chest. Views: 2 views. COMPARISON: CR XR PORTABLE CHEST AP 02/15/2025 10:15 AM FINDINGS: Lungs: Chronic appearing interstitial infiltrates, however, underlying acute process can not be entirely excluded. Pleural spaces: Unremarkable. No pleural effusion. No pneumothorax. Heart/Mediastinum: No cardiomegaly or pericardial effusion. Bones/joints: Postsurgical changes in the left clavicle 7th and 8th lateral ribs again seen. Soft tissues: Soft tissues are unremarkable as visualized. IMPRESSION: Chronic appearing interstitial infiltrates, however, underlying acute process can not be entirely excluded. Dictated and Authenticated by: Jess Shelton MD. Orderin Bri Caceres MD
[2025-03-20 02:12] LABS: Troponin I 9 ng/L (<or=76)
== END 2025-03-20 03:01 | disposition skilled nursing facility (03) ==
PROVIDERS: Emergency Provider Emergency Medicine Emergency Medical Services; PCP Internal Medicine
DX: R06.02 Shortness of breath (principal)
CPT/HCPCS: 99285; 99283; 36415; 80048; 93005; 71046; 83880; 84484; 85025; 93010

== ENCOUNTER 2025-03-23 18:34 | Emergency (ER) | payer MEDICARE, SELFPAY ==
[2025-03-23] VITALS (9 sets, daily range): BP systolic 127–139; BP diastolic 79–90; PULSE 84–116; RESP 16–23; TEMP 36.9; O2SAT 95–97
--- NOTE | 2025-03-23 18:15 | RT.EKG_ITS ---
APPROVED REPORT Exam: Resting ECG Reason for Exam: unwitnessed fall Patient Location: E HR:105 bpm ECG Measurements Heart Rate 105 [place]IS [place] [id number] P [id number] QRSd 91 QRS 17 QT 363 T 147 QTc 480 Conclusion Atrial fibrillation...V-rate 77-140, irreg A-activity Low voltage, extremity leads...all extremity leads <0.5mV Minimal ST depression, diffuse leads...ST <-0.03mV, ant/lat/inf. Significant artifact. No STEMI.
--- NOTE | 2025-03-23 18:30 | DI.RAD_ITS ---
Exam(s) XR KNEE LT 3V AP,LAT,ROBYN EXAM: XR KNEE LT 3V AP,LAT,ROBYN CLINICAL HISTORY: fall / trauma. TECHNIQUE: 2D digital imaging was performed. COMPARISON: No exams were available for comparison FINDINGS: 3 views There are advanced osteoarthritic degenerative changes in all 3 compartments. There is also chondrocalcinosis. Calcification is also seen along the course of the medial collateral ligament. On the lateral aspect of knee there is a concave defect in the outer aspect of the lateral femoral condyle and in adjacent bony density. This may represent an avulsion type injury, possibly related to the fibular collateral ligament at this level. Correlation with site of tenderness is recommended. [id number] narrowing is noted in the patellofemoral compartment. IMPRESSION: Advanced osteoarthritic degenerative changes in all 3 compartments of the left knee. There does not appear to be a prominent joint effusion. Defect in the outer aspect of the lateral femoral condyle noted. Cannot exclude an avulsion injury at this level. Consider follow-up MRI DATA REPOSITORY: RADIATION DOSE DELIVERED:
--- NOTE | 2025-03-23 18:30 | DI.RAD_ITS ---
Exam(s) XR SHOULDER RT COMPLETE 2+V EXAM: XR SHOULDER RT COMPLETE 2+V CLINICAL HISTORY: fall / trauma. TECHNIQUE: 2D digital imaging was performed. COMPARISON: No exams were available for comparison FINDINGS: Five views There is no evidence of fracture humeral head and neck. However, there is upward subluxation of the humeral head in the osseous glenoid fossa and significant diminution of the subacromial space, these findings usually associated with chronic full-thickness tear of the rotator cuff supraspinatus tendon. There is also a gap in the most lateral aspect of the ipsilateral clavicle. This is just medial to the AC joint. May be related to prior fracture or prior decompression surgery in this region. Appearance of this finding does not appear obviously acute. IMPRESSION: No obvious acute fractures. Other findings as above. The superior subluxation of the humeral head in the osseous glenoid implies that there is most probably a chronic full-thickness rotator cuff tear. There may have been prior remote decompression surgery here. DATA REPOSITORY: RADIATION DOSE DELIVERED:
--- NOTE | 2025-03-23 18:58 | W.ED.GENAD ---
Discharge Plan Disposition Patient Disposition: Home Condition: Fair Discharge Details Clinical Impression: Contusion of multiple sites Primary Care Provider: Brijesh Elliott ED Provider: Faustino Burgos Home Meds and New Rx's Prescriptions: No Action atorvastatin 40 mg tablet 40 mg PO HS trazodone 100 MG tablet 150 mg PO HS finasteride 5 mg tablet 5 mg PO DAILY oxycodone 5 mg capsule 5 mg PO Q6H PRN PRN (Reason: severe pain (scale score 7-10)) venlafaxine 75 mg tablet 150 mg PO DAILY cholecalciferol (vitamin D3) 25 mcg (1,000 unit) capsule 1,000 unit PO DAILY metoprolol tartrate 25 mg tablet 25 mg PO Q6H polyethylene glycol 3350 [Miralax] 17 gram powder in packet 17 g PO BID PRN PRN sennosides-docusate sodium [Senna-S] 8.6-50 mg tablet 2 tab PO BID lorazepam [Ativan] 0.5 mg tablet 0.5 mg PO Q8H PRN PRN (Reason: agitation) albuterol sulfate 90 mcg/actuation HFA aerosol inhaler 2 puff inhalation Q4H PRN PRN (Reason: wheezing) chlorhexidine gluconate [Peridex] 0.12 % mouthwash 15 ml PO BID Patient Comments: swish and spit 15 mL BID after oral care sodium phosphates 19-7 gram/118 mL enema 118 ml [place] DIRECTED PRN Patient Comments: insert one application rectally as needed if no results from bisacodyl suppository after 24 hours GlucaGen HypoKit 1 mg recon soln 1 mg IM DIRECTED PRN Patient Comments: Inject 1 mg IM as needed for BG less than 70 and patient is not arousable, conscious or able to swallow. Repeat BG in 15 minutes glucose gel 1 dose PO DIRECTED PRN Patient Comments: 77.4 % gel. Give one dose by mouth as needed for BG les than 70 if patient is arousable, conscious and able to swallow. Repeat BG in 15 min nystatin 100,000 unit/gram cream 1 applic topical TID sorbitol 70 % solution 15 ml PO ONCE PRN Bio-K plus 50 billion cell capsule,delayed release(DR/EC) 1 cap PO DAILY Qty: 7 0RF Rx Instructions: Take 3 hours apart from antibiotics ipratropium-albuterol 0.5 mg-3 mg(2.5 mg base)/3 mL Solution For Nebulization 3 ml UPD QID Qty: 90 0RF famotidine [Acid Controller] 20 mg tablet 20 mg PO DAILY prednisone 5 mg tablet 5 mg PO DAILY Combivent Respimat 20-100 mcg/actuation mist 1 puff inhalation Q6H PRN PRN (Reason: bronchospasm) nitroglycerin 0.4 mg tablet, sublingual 0.4 mg sublingual Q5 MIN PRN X3 PRN Rx Instructions: do not exceed 3 doses per episode lidocaine [Aspercreme (lidocaine)] 4 % adhesive patch,medicated 1 patch topical DAILY PRN Super Thera Ada M Tablet 1 tab PO DAILY guaifenesin [Mucinex] 1,200 mg tablet extended release 12hr 1,200 mg PO BID acetaminophen 325 mg capsule 975 mg PO .Q8 PRN furosemide [Lasix] 20 mg tablet 10 mg PO DAILY Discharge Instructions Instructions: Minor Contusion ED Referrals: Brijesh Elliott [Primary Care Provider, Medicine] Referral Note: Follow-up as needed HPI General Date/Time Provider Initiated Documentation: 03/23/25 18:40. HPI Narrative: This is a 79-year-old male with a past medical history of COPD, old vertebral compression fractures, anemia, congestive heart failure, dementia, atrial fibrillation hypertension, BPH, cardiovascular disease presenting to the emergency department with a chief complaint of fall. Patient states that he got knocked over by a door that was swinging. He is normally wheelchair-bound. Patient states that he landed on his left knee and injured his right shoulder. No head injury. No chest injury. No shortness of breath. No abdominal pain. He did not sustain any lacerations or abrasions. He states that his right shoulder is somewhat painful and is requesting some of his evening pain medication. He states he takes oxycodone for his osteoarthritis and chronic back pain daily. Related Data Home Medications ?Medication ?Instructions ?Recorded ?Confirmed trazodone 100 mg tablet 150 mg PO HS 08/09/13 03/23/25 atorvastatin 40 mg tablet 40 mg PO HS 02/06/23 03/23/25 finasteride 5 mg tablet 5 mg PO DAILY 06/03/24 03/23/25 oxycodone 5 mg capsule 5 mg PO Q6H PRN PRN severe pain 06/03/24 03/23/25 (scale score 7-10) ipratropium 20 mcg-albuterol 100 1 puff inhalation Q6H PRN PRN 08/07/24 03/23/25 mcg/actuation mist for inhalation bronchospasm (Combivent Respimat) nitroglycerin 0.4 mg sublingual 0.4 mg sublingual Q5 MIN PRN X3 PRN 08/07/24 03/23/25 tablet venlafaxine 75 mg tablet 150 mg PO DAILY 10/19/24 03/23/25 cholecalciferol (vitamin D3) 25 1,000 unit PO DAILY 10/20/24 03/23/25 mcg (1,000 unit) capsule metoprolol tartrate 25 mg tablet 25 mg PO Q6H 10/20/24 03/23/25 polyethylene glycol 3350 17 gram 17 g PO BID PRN PRN 10/20/24 03/23/25 oral powder packet (Miralax) sennosides 8.6 mg-docusate sodium 2 tab PO BID 10/20/24 03/23/25 50 mg tablet (Senna-S) albuterol sulfate 90 mcg/actuation 2 puff inhalation Q4H PRN PRN 10/21/24 03/23/25 aerosol inhaler wheezing chlorhexidine gluconate 0.12 % 15 ml PO BID gingavitis 10/21/24 03/23/25 mouthwash (Peridex) glucagon 1 mg solution for 1 mg IM DIRECTED PRN 10/21/24 03/23/25 injection (GlucaGen HypoKit) glucose 1 dose PO DIRECTED PRN 10/21/24 03/23/25 lorazepam 0.5 mg tablet (Ativan) 0.5 mg PO Q8H PRN PRN agitation 10/21/24 03/23/25 sodium phosphates 19 gram-7 118 ml TX DIRECTED PRN 10/21/24 03/23/25 gram/118 mL enema acetaminophen 325 mg capsule 975 mg PO .Q8 PRN 11/02/24 03/23/25 guaifenesin 1,200 mg tablet, 1,200 mg PO BID 11/02/24 03/23/25 extended release 12 hr (Mucinex) lidocaine 4 % topical patch 1 patch topical DAILY PRN 11/02/24 03/23/25 (Aspercreme (lidocaine)) multivitamin,tx-minerals (Super 1 tab PO DAILY 11/02/24 03/23/25 Thera Ada M tablet) furosemide 20 mg tablet (Lasix) 10 mg PO DAILY 02/04/25 03/23/25 nystatin 100,000 unit/gram topical 1 applic topical TID 02/15/25 03/23/25 cream sorbitol 70 % solution 15 ml PO ONCE PRN 02/15/25 03/23/25 L. acidophilus,casei,rhamnosus 50 1 cap PO DAILY #7 caps 02/17/25 03/23/25 billion cell capsule,delayed release (Bio-K plus) ipratropium 0.5 mg-albuterol 3 mg 3 ml UPD QID #90 mL 02/17/25 03/23/25 (2.5 mg base)/3 mL nebulization soln famotidine 20 mg tablet (Acid 20 mg PO DAILY 03/23/25 03/23/25 Controller) prednisone 5 mg tablet 5 mg PO DAILY 03/23/25 03/23/25 Previous Rx's ?Medication ?Instructions ?Recorded L. acidophilus,casei,rhamnosus 50 1 cap PO DAILY #7 caps 02/17/25 billion cell capsule,delayed release (Bio-K plus) ipratropium 0.5 mg-albuterol 3 mg 3 ml UPD QID #90 mL 02/17/25 (2.5 mg base)/3 mL nebulization soln Allergies Allergy/AdvReac Type Severity Reaction Status Date / Time fluticasone Allergy Unknown Headache Verified 03/23/25 19:06 gabapentin Allergy Unknown Psychosis Verified 03/23/25 19:06 pregabalin Allergy Unknown Psychosis Verified 03/23/25 19:06 doxycycline AdvReac Intermediate vomiting Verified 03/23/25 19:06 morphine AdvReac Unknown Psychosis Verified 03/23/25 19:06 General Stated Complaint: Orthopedic HAROLDO: 3 Review of Systems All systems reviewed & are unremarkable except as noted in HPI and below Constitutional Constitutional: Reports system reviewed and no additional complaints, except as documented, Denies fever(s), Denies weakness and Denies weight loss Eyes Eyes: Denies blurry vision ENT Ears, Nose, Mouth, and Throat: Denies sore throat Cardiovascular Cardiovascular: Denies chest pain, Denies palpitations and Denies dyspnea Respiratory Respiratory: Denies cough, Denies dyspnea and Denies wheezing Gastrointestinal Gastrointestinal: Denies abdominal pain, Denies diarrhea, Denies nausea and Denies vomiting Genitourinary Genitourinary: Denies hematuria and Denies dysuria Musculoskeletal Musculoskeletal: Denies back pain, Reports arthralgias and Denies numbness Neurologic Neurologic: Denies numbness and Denies weakness Psychiatric Psychiatric: Denies suicidal ideation Endocrine Endocrine: Denies palpitations Allergic/Immunologic Allergic/Immunologic: Denies wheezing Exam Const General: no acute distress and well groomed HENMT Mouth: oral mucosae normal and moist mucous membranes Throat: posterior oropharynx normal Eyes Conjunctivae: conjunctivae normal Sclera: sclerae normal Neck Neck: full ROM and No JVD Resp Effort & Inspection: normal respiratory effort Auscultation: clear to auscultation bilaterally Cardio Rate: regular rate Rhythm: regular rhythm Heart Sounds: no murmurs GI Palpation: soft and nontender Skin General skin exam: no rashes or lesions noted Neuro General: patient alert and patient oriented x3 Extrem General: normal to inspection and full ROM Other: Left knee has no effusion. No areas that are tender to the touch. The patient can elevate and flex the knee off of the bed although he does have some difficulty. He states that this is baseline. Right shoulder has crepitus to palpation laterally. Patient can abduct the shoulder to about 45 degrees. Distal sensation is intact. Cap refill is less than 1 second. Psych Appearance: grossly normal Mental Status: mental status grossly normal Speech and Movement: speech and movement normal Affect: normal affect Thought Process: normal Course Vital Signs Vital signs: Vital Signs Temperature 36.9 C 03/23/25 18:27 Pulse 94 H 03/23/25 18:27 Respiratory Rate 16 03/23/25 18:27 Blood Pressure 139/79 03/23/25 18:27 Pulse Oximetry 95 03/23/25 18:27 Temperature 36.9 C 03/23/25 18:27 Temperature Source Oral 03/23/25 18:27 Pulse 94 H 03/23/25 18:27 Respiratory Rate 16 03/23/25 18:27 Blood Pressure 139/79 03/23/25 18:27 Pulse Oximetry 95 03/23/25 18:27 Oxygen Delivery Method Room Air 03/23/25 18:27 Oxygen Flow Rate 0 03/23/25 18:27 Medical Decision Making This is a 79-year-old male presenting to the emergency department with a chief complaint of fall. Patient normally uses a wheelchair but was upright and near a door which knocked him down. He is complaining of left knee pain and right shoulder pain. He denies head injury. X-ray of both the knee and shoulder reveal severe DJD but no other acute abnormality. EKG reviewed by me shows atrial fibrillation at 105 bpm. There is low voltage and minimal ST depression diffusely. No STEMI. The atrial fibrillation is an old diagnosis and given that the patient is otherwise asymptomatic I do not feel further evaluation of this is indicated. Patient was given his evening dose of oxycodone and will be discharged home. He feels that he has adequate supports and does not have any additional concerns or request. [facility] All Active Problems (Updated 03/23/25 @ 20:24 by Faustino Burgos MD) Contusion of multiple sites (Acute) Observation for suspected condition (Acute) Rash (Acute) COPD exacerbation (Acute) Hypotension (Acute) Acute respiratory acidosis (Acute) Hypoxemia (Acute) HCAP (healthcare-associated pneumonia) (Acute) Compression fracture of T12 vertebra (Acute) Anemia (Chronic) COPD exacerbation (Acute) Decubitus ulcer of sacral area (Acute) Aspiration pneumonia (Acute) Dementia with behavioral disturbance (Chronic) Aspiration pneumonia (Acute) Anemia (Chronic) CHF (congestive heart failure) (Chronic) Yeast infection of the skin (Acute) Acute respiratory failure with hypoxia and hypercarbia (Acute) Hemopneumothorax on left (Acute) Pain in joint, foot, left (Acute) Corns and callosities (Acute) Cellulitis (Acute) Venous (peripheral) insufficiency (Acute) PAD (peripheral artery disease) (Acute) Onychomycosis (Acute) Neuropathy (Acute) Atrial fibrillation (Chronic) Hearing loss (Acute) with subjective 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 Mononeuritis (Acute) Hyperlipidemia (Chronic) Essential (primary) hypertension (Chronic) BPH (benign prostatic hyperplasia) (Chronic) ADHD (Acute) ASCVD (arteriosclerotic cardiovascular disease) (Chronic) Long-term current use of opiate analgesic (Acute) Tobacco use disorder (Chronic) Venous stasis dermatitis (Acute) Peripheral edema (Acute) 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 Frequent falls (Acute) Medical History Viral meningitis Complete rotator cuff tear right Cervical spondylosis Bursitis 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
[2025-03-23] MEDS: oxyCODONE 5 MG TAB PO (19:19)
== END 2025-03-23 20:52 | disposition home or self-care (01) ==
PROVIDERS: Emergency Provider Emergency Medicine; PCP Internal Medicine
DX: S80.02XA Contusion of left knee, initial encounter (principal); S40.011A Contusion of right shoulder, initial encounter; W19.XXXA Unspecified fall, initial encounter
CPT/HCPCS: 99284; 99283; 73562; 93005; 73030; 93010

== ENCOUNTER 2025-04-08 11:21 | Outpatient (REF) | payer MEDICARE, SELFPAY ==
[2025-04-08 11:32] LABS: Abs Immature Grans 0.08 10^3/uL (0.0-0.06); HCT 32.4 % (40.0-50.0); HGB 9.3 g/dL (13.5-17.5); Immature Grans % 0.6 %; MCH 24.5 pg (27.0-33.0); MCHC 28.7 % (32.0-36.0); MCV 85 fL (80-95); MPV 10.7 fL (8.0-11.0); Platelet Count 229 10^3/uL (130-400); RBC 3.80 10^6/uL (4.36-5.78); RDW 18.0 % (11.8-14.1); RDW-SD 55.8 fL; WBC 13.63 10^3/uL (4.4-10.8)
[2025-04-08 11:58] LABS: ALT 17 U/L (16-63); AST 16 U/L (15-37); Albumin 2.1 g/dL (3.4-5.0); Alkaline Phosphatase 104 U/L (46-116); Anion Gap 3.7 mmol/L (3-11); BUN 13 mg/dL (7-18); Bilirubin, Total 0.5 mg/dL (0.2-1.0); CO2 33.3 mmol/L (21.0-32.0); Calcium 9.1 mg/dL (8.5-10.1); Chloride 102 mmol/L (98-107); Estimated GFR 98.81 (mL/min/1.73m2); Glucose 162 mg/dL (74-106); NT-proBNP 3509 pg/mL (<300); Potassium 4.4 mmol/L (3.5-5.1); Sodium 139 mmol/L (136-145); Total Protein 7.1 g/dL (6.4-8.2)
[2025-04-08 12:34] LABS: Procalcitonin < 0.10 ng/mL
== END 2025-04-08 11:22 | disposition home or self-care (01) ==
LOC: LBN 11:21
PROVIDERS: PCP Internal Medicine; Visit Provider Nurse Practitioner Adult Health
DX: I50.9 Heart failure, unspecified (principal)
CPT/HCPCS: 80053; 84145; 83880; 85025

== ENCOUNTER 2025-04-24 17:58 | Outpatient (REF) | payer MEDICARE, SELFPAY ==
[2025-04-24 17:24] LABS: Abs Immature Grans 0.07 10^3/uL (0.0-0.06); HCT 31.2 % (40.0-50.0); HGB 8.8 g/dL (13.5-17.5); Immature Grans % 0.5 %; MCH 24.1 pg (27.0-33.0); MCHC 28.2 % (32.0-36.0); MCV 86 fL (80-95); MPV 11.3 fL (8.0-11.0); Platelet Count 166 10^3/uL (130-400); RBC 3.65 10^6/uL (4.36-5.78); RDW 16.9 % (11.8-14.1); RDW-SD 52.0 fL; WBC 14.10 10^3/uL (4.4-10.8)
[2025-04-24 17:28] LABS: Anion Gap 5.4 mmol/L (3-11); BUN 26 mg/dL (7-18); CO2 32.6 mmol/L (21.0-32.0); Calcium 8.7 mg/dL (8.5-10.1); Chloride 99 mmol/L (98-107); Glucose 166 mg/dL (74-106); Potassium 5.3 mmol/L (3.5-5.1); Sodium 137 mmol/L (136-145)
== END 2025-04-24 17:59 | disposition home or self-care (01) ==
LOC: LBN 17:58
PROVIDERS: PCP Internal Medicine; Visit Provider Nurse Practitioner Adult Health
DX: I50.9 Heart failure, unspecified (principal)
CPT/HCPCS: 80048; 85025

== ENCOUNTER 2025-05-01 15:18 | Outpatient (REF) | payer MEDICARE, SELFPAY ==
[2025-05-01 19:06] LABS: Hemoglobin A1C 7.1 % (<5.7)
== END 2025-05-01 15:19 | disposition home or self-care (01) ==
LOC: LBN 15:18
PROVIDERS: PCP Internal Medicine; Visit Provider Nurse Practitioner Adult Health
DX: E11.9 Type 2 diabetes mellitus without complications (principal)
CPT/HCPCS: 83036

== ENCOUNTER 2025-05-13 15:37 | Emergency (ER) | payer MEDICARE, SELFPAY ==
--- NOTE | 2025-05-13 15:30 | DI.RAD_ITS ---
Exam(s) XR PELVIS AP XR FEMUR RT EXAM: XR PELVIS AP CLINICAL HISTORY: fall, right hip pain. TECHNIQUE: 2D digital imaging was performed. Single AP view of the pelvis. AP and lateral views of the femur. COMPARISON: CR XR FEMUR RT from 05/13/2025 FINDINGS: BONES: No acute fracture is present. The sacrum is mainly obscured by overlying bowel gas, stool as well as vascular calcifications. No bony destructive lesion is seen. JOINTS: No dislocation present. There are mild degenerative changes of the hips and SI joints. There is a total knee prosthesis which is unremarkable as visualized. SOFT TISSUE: Normal. IMPRESSION: No acute abnormality. DATA REPOSITORY: RADIATION DOSE DELIVERED:
--- NOTE | 2025-05-13 15:30 | DI.CT_ITS ---
Exam(s) CT HEAD CERVICAL SPINE WO EXAM: CT HEAD CERVICAL SPINE WO CLINICAL HISTORY: fall, left eyebrow strike, no thinners. TECHNIQUE: Imaging Protocol: Axial computed tomography images with coronal and sagittal reformatted images were created and reviewed COMPARISON: CT CT HEAD CERV SPINE FACIAL WO from 10/19/2024 FINDINGS: Head CT Ventricles and Extra axial spaces: Normal in size and morphology for the patient's age. Hemorrhage: None. Cerebral parenchyma: No evidence of mass or acute infarct. Mild atrophy consistent with the patient's age. Microvascular changes of the white matter. Midline shift: None. Brainstem/Cerebellum: Normal. Calvarium: Normal. Visualized Paranasal sinuses/Mastoids: Clear. Soft tissues: Mild soft tissue swelling over the left orbit. Cervical Spine CT The exam is limited by artifact. BONES: Vertebral body heights are maintained. Serosal of the normal cervical lordosis secondary to positioning. There is no evidence of acute fracture. Degenerative disc changes and facet degenerative changes are seen . SOFT TISSUES: No paraspinal hematoma. The airway appears intact. No pneumothorax is seen at the lung apices. IMPRESSION: Head CT: No acute abnormality. C-spine CT: Degenerative changes, no acute abnormality. RADIATION DOSE DELIVERED: Total DLP DATA REPOSITORY: All CT scans at this facility are submitted to the National Radiology Data Registry (NRDR) Dose Index Registry (DIR) with the [employer] (ACR). RADIATION OPTIMIZATION: All CT scans at this facility use at least one of these dose optimization techniques: automated exposure control; mA and/or kV adjustment per patient size (includes targeted exams where dose is matched to clinical indication); or iterative reconstruction.
[2025-05-13 15:34] VITALS: BP 121/72; PULSE 84; RESP 18; TEMP 36.6; O2SAT 96
--- NOTE | 2025-05-13 15:47 | W.ED.GENAD ---
Discharge Plan Disposition Patient Disposition: Home Condition: Stable Discharge Details Clinical Impression: Frequent falls, Abrasion of forehead Primary Care Provider: Brijesh Elliott ED Provider: Mily King Home Meds and New Rx's Prescriptions: No Action atorvastatin 40 mg tablet 40 mg PO HS trazodone 100 MG tablet 150 mg PO HS finasteride 5 mg tablet 5 mg PO DAILY oxycodone 5 mg capsule 5 mg PO Q6H PRN PRN (Reason: severe pain (scale score 7-10)) venlafaxine 75 mg tablet 150 mg PO DAILY cholecalciferol (vitamin D3) 25 mcg (1,000 unit) capsule 1,000 unit PO DAILY metoprolol tartrate 25 mg tablet 25 mg PO Q6H polyethylene glycol 3350 [Miralax] 17 gram powder in packet 17 g PO BID PRN PRN sennosides-docusate sodium [Senna-S] 8.6-50 mg tablet 2 tab PO BID lorazepam [Ativan] 0.5 mg tablet 0.5 mg PO Q8H PRN PRN (Reason: agitation) albuterol sulfate 90 mcg/actuation HFA aerosol inhaler 2 puff inhalation Q4H PRN PRN (Reason: wheezing) chlorhexidine gluconate [Peridex] 0.12 % mouthwash 15 ml PO BID Patient Comments: swish and spit 15 mL BID after oral care GlucaGen HypoKit 1 mg recon soln 1 mg IM DIRECTED PRN Patient Comments: Inject 1 mg IM as needed for BG less than 70 and patient is not arousable, conscious or able to swallow. Repeat BG in 15 minutes glucose gel 1 dose PO DIRECTED PRN Patient Comments: 77.4 % gel. Give one dose by mouth as needed for BG les than 70 if patient is arousable, conscious and able to swallow. Repeat BG in 15 min nystatin 100,000 unit/gram cream 1 applic topical TID Bio-K plus 50 billion cell capsule,delayed release(DR/EC) 1 cap PO DAILY Qty: 7 0RF Rx Instructions: Take 3 hours apart from antibiotics ipratropium-albuterol 0.5 mg-3 mg(2.5 mg base)/3 mL Solution For Nebulization 3 ml UPD QID Qty: 90 0RF famotidine [Acid Controller] 20 mg tablet 20 mg PO DAILY prednisone 5 mg tablet 5 mg PO DAILY Combivent Respimat 20-100 mcg/actuation mist 1 puff inhalation Q6H PRN PRN (Reason: bronchospasm) nitroglycerin 0.4 mg tablet, sublingual 0.4 mg sublingual Q5 MIN PRN X3 PRN Rx Instructions: do not exceed 3 doses per episode lidocaine [Aspercreme (lidocaine)] 4 % adhesive patch,medicated 1 patch topical DAILY PRN Super Thera Ada M Tablet 1 tab PO DAILY guaifenesin [Mucinex] 1,200 mg tablet extended release 12hr 1,200 mg PO BID Patient Comments: 600mg q 12hr acetaminophen 325 mg capsule 975 mg PO .Q8 PRN furosemide [Lasix] 20 mg tablet 10 mg PO DAILY Discharge Instructions Instructions: Preventing falls in adults Additional Instructions: You were seen in the emergency department today for evaluation after a fall. In our department you had a full physical examination performed, had a CT scan of your brain and C-spine that were negative for bleeding inside the brain, broken bones, or other concerning injuries. You had an x-ray of your pelvis and femur and do not have any sign of fracture or dislocation. You did have a laceration to the side of your eyebrow, this did not require stitches but we did clean it up and bandage it. You can always replace this bandage and use a topical antibiotic ointment once per day to keep the area clean and prevent infection. You can use Tylenol as needed for management of any pain. Please follow-up with your primary care provider in the next few days to discuss this visit and any symptoms that change, worsen, or persist. Thank you for allowing us to be part of your care. Stand Alone Forms: Portal Information HPI General Mode of arrival: EMS. Date/Time Provider Initiated Documentation: 05/13/25 15:38. Limitations to Documentation: no limitations. Information obtained by: patient, EMS and old records reviewed. HPI Narrative: This is a 79-year-old male patient with a history of COPD, healthcare associated pneumonia currently on antibiotics, anemia, dementia, CHF, osteoarthritis, and a history of frequent falls, presenting for evaluation after a fall. The patient is wheelchair-bound, but often forgets per report at the care facility, attempts to get up and sustains a fall. Today the patient reports that he was getting up from his wheelchair, and his feet slipped and he fell, he states that his hands went up and he struck himself in the face with his knuckle. The patient does not take any anticoagulant medications, denies loss of consciousness, states that he did not have any dizziness, headache, chest pain, or syncope prior to this event. The patient is complaining of pain in his left eyebrow where he has a laceration/abrasion, as well as right hip pain. Prior to this event he was in his normal state of health. Related Data Home Medications ?Medication ?Instructions ?Recorded ?Confirmed trazodone 100 mg tablet 150 mg PO HS 08/09/13 05/13/25 atorvastatin 40 mg tablet 40 mg PO HS 02/06/23 05/13/25 finasteride 5 mg tablet 5 mg PO DAILY 06/03/24 05/13/25 oxycodone 5 mg capsule 5 mg PO Q6H PRN PRN severe pain 06/03/24 05/13/25 (scale score 7-10) ipratropium 20 mcg-albuterol 100 1 puff inhalation Q6H PRN PRN 08/07/24 05/13/25 mcg/actuation mist for inhalation bronchospasm (Combivent Respimat) nitroglycerin 0.4 mg sublingual 0.4 mg sublingual Q5 MIN PRN X3 PRN 08/07/24 05/13/25 tablet venlafaxine 75 mg tablet 150 mg PO DAILY 10/19/24 05/13/25 cholecalciferol (vitamin D3) 25 1,000 unit PO DAILY 10/20/24 05/13/25 mcg (1,000 unit) capsule metoprolol tartrate 25 mg tablet 25 mg PO Q6H 10/20/24 05/13/25 polyethylene glycol 3350 17 gram 17 g PO BID PRN PRN 10/20/24 05/13/25 oral powder packet (Miralax) sennosides 8.6 mg-docusate sodium 2 tab PO BID 10/20/24 05/13/25 50 mg tablet (Senna-S) albuterol sulfate 90 mcg/actuation 2 puff inhalation Q4H PRN PRN 10/21/24 05/13/25 aerosol inhaler wheezing chlorhexidine gluconate 0.12 % 15 ml PO BID gingavitis 10/21/24 05/13/25 mouthwash (Peridex) Held on 05/13/25. Instructions: unknown glucagon 1 mg solution for 1 mg IM DIRECTED PRN 10/21/24 05/13/25 injection (GlucaGen HypoKit) glucose 1 dose PO DIRECTED PRN 10/21/24 05/13/25 lorazepam 0.5 mg tablet (Ativan) 0.5 mg PO Q8H PRN PRN agitation 10/21/24 05/13/25 acetaminophen 325 mg capsule 975 mg PO .Q8 PRN 11/02/24 05/13/25 guaifenesin 1,200 mg tablet, 1,200 mg PO BID 11/02/24 05/13/25 extended release 12 hr (Mucinex) lidocaine 4 % topical patch 1 patch topical DAILY PRN 11/02/24 05/13/25 (Aspercreme (lidocaine)) Held on 05/13/25. Instructions: Pt Stopped/Never Started multivitamin,tx-minerals (Super 1 tab PO DAILY 11/02/24 05/13/25 Thera Ada M tablet) furosemide 20 mg tablet (Lasix) 10 mg PO DAILY 02/04/25 05/13/25 nystatin 100,000 unit/gram topical 1 applic topical TID 02/15/25 05/13/25 cream L. acidophilus,casei,rhamnosus 50 1 cap PO DAILY #7 caps 02/17/25 05/13/25 billion cell capsule,delayed release (Bio-K plus) ipratropium 0.5 mg-albuterol 3 mg 3 ml UPD QID #90 mL 02/17/25 05/13/25 (2.5 mg base)/3 mL nebulization soln famotidine 20 mg tablet (Acid 20 mg PO DAILY 03/23/25 05/13/25 Controller) prednisone 5 mg tablet 5 mg PO DAILY 03/23/25 05/13/25 Previous Rx's ?Medication ?Instructions ?Recorded L. acidophilus,casei,rhamnosus 50 1 cap PO DAILY #7 caps 02/17/25 billion cell capsule,delayed release (Bio-K plus) ipratropium 0.5 mg-albuterol 3 mg 3 ml UPD QID #90 mL 02/17/25 (2.5 mg base)/3 mL nebulization soln Allergies Allergy/AdvReac Type Severity Reaction Status Date / Time fluticasone Allergy Unknown Headache Verified 03/23/25 19:06 gabapentin Allergy Unknown Psychosis Verified 03/23/25 19:06 pregabalin Allergy Unknown Psychosis Verified 03/23/25 19:06 doxycycline AdvReac Intermediate vomiting Verified 03/23/25 19:06 morphine AdvReac Unknown Psychosis Verified 03/23/25 19:06 General Stated Complaint: Fall/Non TraumaCriteria HAROLDO: 3 Exam Narrative Exam Narrative: Gen: awake and alert, in no apparent distress. Appears well nourished. HEENT: PERRL, EOMs full and without nystagmus. External ears and nose normal, mucous membranes moist. Scalp atraumatic, left eyebrow with a well-approximated area of abrasion without active hemorrhage, 1.5 cm Neck: Supple, full range of motion, no C-spine tenderness or step-offs Lungs: No increased work of breathing, lung sounds clear and equal bilaterally without wheezes, rhonchi, or rales. CV: Heart with regular rate and rhythm, no murmurs auscultated. Strong and symmetrical radial pulses. Chest wall is nontender to palpation, without crepitus or deformity Abdomen: Soft, nondistended, non-tender to palpation. No rigidity, rebound tenderness, or guarding. MSK: No T or L-spine tenderness, chest wall and clavicles stable and without tenderness as noted above. Pelvis is stable to AP compression, patient endorses lateral right sided hip pain. No deformity or tenderness otherwise to the bilateral lower extremities, full range of motion symmetrical bilaterally. Bilateral upper extremities atraumatic. Skin: No rashes or lesions to visualized skin. Normal color, warm, and dry. Neuro: Cranial nerves II-XII intact and symmetrical bilaterally. 5/5 strength in all muscle groups x4 extremities. No sensory deficits. Psych: Appropriate for situation. Course Vital Signs Vital signs: Vital Signs Temperature 36.6 C 05/13/25 15:34 Pulse 84 05/13/25 15:34 Respiratory Rate 18 05/13/25 15:34 Blood Pressure 121/72 05/13/25 15:34 Pulse Oximetry 96 05/13/25 15:34 Temperature 36.6 C 05/13/25 15:34 Temperature Source Oral 05/13/25 15:34 Pulse 84 05/13/25 15:34 Respiratory Rate 18 11/24/25 15:34 Blood Pressure 121/72 05/13/25 15:34 Blood Pressure Position Sitting 05/13/25 15:34 Pulse Oximetry 96 05/13/25 15:34 Oxygen Delivery Method Room Air 05/13/25 15:34 Oxygen Flow Rate 0 05/13/25 15:34 Medical Decision Making This is a 79-year-old male patient presenting for evaluation after a fall. My differential includes but is not limited to laceration abrasion, intracranial injury including hemorrhage, skull fracture, cervical spine fracture. No altered mental status, headache, nausea or vomiting to suggest severe concussion. I certainly considered pelvic and femur fracture, dislocation, sprain/strain, contusion. Otherwise the head to toe trauma examination does not reveal any evidence of severe extremity, intrathoracic or intra-abdominal injuries. This was a mechanical fall and there is no evidence on my history to suggest arrhythmia, ACS, syncope, vasovagal syndrome, orthostasis, stroke or seizure as the cause of the fall. We will obtain CT imaging of the head and C-spine, as well as an x-ray of the pelvis and femur. I do not see an indication at this time to proceed with laboratory studies given the clear mechanical nature of this fall. I did provide the patient with a dose of Tylenol for his eyebrow pain, this wound was cleansed thoroughly and does not require any laceration repair. I placed bacitracin and bandage over it to keep it clean and prevent infection. -CT and x-ray imaging reviewed by myself, showing no intracranial hemorrhage, skull fracture or cervical spine fracture. Additionally there is no fracture or dislocation nor other osseous abnormalities noted on the pelvis and right femur x-rays. On reevaluation the patient reports that he is feeling quite well, I shared the findings of the workup and at this time, the patient has had a full medical evaluation and is safe for discharge to home. They are hemodynamically stable, and tolerating PO. They are understanding of the follow-up plan and return precautions. Given the patient's dementia, significant chronic pain and inability to ambulate safely given significant fall risk, he will be transported back to the [facility] by ambulance. They left our facility without incident. Mily King MD Quality:SDOH Health Related Social Needs: Health related social needs material hardship Health related social needs details n/a PFSH All Active Problems (Updated 05/13/25 @ 17:23 by Mily King MD) Abrasion of forehead (Acute) Rash (Acute) COPD exacerbation (Acute) Hypotension (Acute) Acute respiratory acidosis (Acute) Hypoxemia (Acute) HCAP (healthcare-associated pneumonia) (Acute) Compression fracture of T12 vertebra (Acute) Anemia (Chronic) COPD exacerbation (Acute) Decubitus ulcer of sacral area (Acute) Aspiration pneumonia (Acute) Dementia with behavioral disturbance (Chronic) Aspiration pneumonia (Acute) Anemia (Chronic) CHF (congestive heart failure) (Chronic) Yeast infection of the skin (Acute) Acute respiratory failure with hypoxia and hypercarbia (Acute) Hemopneumothorax on left (Acute) Pain in joint, foot, left (Acute) Corns and callosities (Acute) Cellulitis (Acute) Venous (peripheral) insufficiency (Acute) PAD (peripheral artery disease) (Acute) Onychomycosis (Acute) Neuropathy (Acute) Atrial fibrillation (Chronic) Hearing loss (Acute) with subjective 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 Mononeuritis (Acute) Hyperlipidemia (Chronic) Essential (primary) hypertension (Chronic) BPH (benign prostatic hyperplasia) (Chronic) ADHD (Acute) ASCVD (arteriosclerotic cardiovascular disease) (Chronic) Long-term current use of opiate analgesic (Acute) Tobacco use disorder (Chronic) Venous stasis dermatitis (Acute) Peripheral edema (Acute) 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 Frequent falls (Acute) Medical History Viral meningitis Complete rotator cuff tear right Cervical spondylosis Bursitis 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
== END 2025-05-13 17:23 | disposition home or self-care (01) ==
PROVIDERS: Emergency Provider Emergency Medicine; PCP Internal Medicine
DX: S00.81XA Abrasion of other part of head, initial encounter (principal); W19.XXXA Unspecified fall, initial encounter
CPT/HCPCS: 99283; 99284; 73552; 70450; 72125; 72170

== ENCOUNTER 2025-05-15 15:30 | Outpatient (REF) | payer MEDICARE, SELFPAY ==
[2025-05-15 15:34] LABS: Abs Immature Grans 0.06 10^3/uL (0.0-0.06); HCT 28.6 % (40.0-50.0); HGB 8.1 g/dL (13.5-17.5); Immature Grans % 0.5 %; MCH 24.4 pg (27.0-33.0); MCHC 28.3 % (32.0-36.0); MCV 86 fL (80-95); MPV 10.8 fL (8.0-11.0); Platelet Count 211 10^3/uL (130-400); RBC 3.32 10^6/uL (4.36-5.78); RDW 16.6 % (11.8-14.1); RDW-SD 52.0 fL; WBC 13.30 10^3/uL (4.4-10.8)
[2025-05-15 15:48] LABS: Ammonia 19 umol/L (11-32)
[2025-05-15 15:54] LABS: ALT 7 U/L (10-49); AST 14 U/L (<34); Albumin 3.1 g/dL (3.2-5.0); Alkaline Phosphatase 72 U/L (46-116); Anion Gap 5.3 mmol/L (3-11); BUN 19 mg/dL (9-23); Bilirubin, Total 0.30 mg/dL (0.2-1.2); CO2 30.9 mmol/L (20.0-31.0); Calcium 8.6 mg/dL (8.3-10.6); Chloride 99 mmol/L (98-107); Glucose 266 mg/dL (74-106); Potassium 4.3 mmol/L (3.5-5.1); Sodium 135 mmol/L (136-145); Total Protein 6.8 g/dL (5.7-8.2)
== END 2025-05-15 15:31 | disposition home or self-care (01) ==
LOC: LBN 15:30
PROVIDERS: PCP Internal Medicine; Visit Provider Nurse Practitioner Adult Health
DX: I51.7 Cardiomegaly (principal); Z91.81 History of falling; M62.81 Muscle weakness (generalized); R27.8 Other lack of coordination
CPT/HCPCS: 80053; 82140; 83605; 83880; 85025

== ENCOUNTER 2025-05-15 21:11 | Inpatient (IN) | payer MEDICARE, SELFPAY ==
[2025-05-15] VITALS (18 sets, daily range): BP systolic 89–107; BP diastolic 40–51; PULSE 87–111; RESP 10–22; TEMP 37.1–37.4; O2SAT 77–100
--- NOTE | 2025-05-15 21:00 | DI.RAD_ITS ---
Exam(s) XR PORTABLE CHEST AP EXAM: XR PORTABLE CHEST AP CLINICAL HISTORY: ?pneumonia TECHNIQUE: 2D digital imaging was performed of the chest. Two images were obtained. P views were obtained. COMPARISON: CR XR PORTABLE CHEST AP from 02/15/2025 CR,XR XR CHEST 2V PA LATERAL from 03/20/2025 FINDINGS: MEDIASTINUM: Normal. HEART: Normal. PULMONARY VASCULATURE: Normal. LUNGS: There are no focal consolidating infiltrates present. PLEURAL SPACE: No pleural effusion or pneumothorax. BONE:Within normal limits for the patient's age. Chronic deformity of the right clavicle. Sideplate and screws are seen transfixing old left clavicular and left rib fractures. There is an old left 4th rib fracture. OTHER FINDINGS:Normal. IMPRESSION: 1. No acute pulmonary findings. 2. The preliminary [facility] report was reviewed. DATA REPOSITORY: RADIATION DOSE DELIVERED:
--- NOTE | 2025-05-15 21:23 | W.ED.GENAD ---
Discharge Plan Disposition Patient Disposition: Admit to [facility] Condition: Serious Discharge Details Clinical Impression: Hypotension, COPD exacerbation Primary Care Provider: Brijesh Elliott ED Provider: Don Grady Home Meds and New Rx's Prescriptions: No Action atorvastatin 40 mg tablet 40 mg PO HS trazodone 100 MG tablet 150 mg PO HS finasteride 5 mg tablet 5 mg PO DAILY oxycodone 5 mg capsule 5 mg PO Q6H PRN PRN (Reason: severe pain (scale score 7-10)) venlafaxine 75 mg tablet 150 mg PO DAILY cholecalciferol (vitamin D3) 25 mcg (1,000 unit) capsule 1,000 unit PO DAILY metoprolol tartrate 25 mg tablet 25 mg PO Q6H polyethylene glycol 3350 [Miralax] 17 gram powder in packet 17 g PO BID PRN PRN sennosides-docusate sodium [Senna-S] 8.6-50 mg tablet 2 tab PO BID lorazepam [Ativan] 0.5 mg tablet 0.5 mg PO Q8H PRN PRN (Reason: agitation) albuterol sulfate 90 mcg/actuation HFA aerosol inhaler 2 puff inhalation Q4H PRN PRN (Reason: wheezing) chlorhexidine gluconate [Peridex] 0.12 % mouthwash 15 ml PO BID Patient Comments: swish and spit 15 mL BID after oral care GlucaGen HypoKit 1 mg recon soln 1 mg IM DIRECTED PRN Patient Comments: Inject 1 mg IM as needed for BG less than 70 and patient is not arousable, conscious or able to swallow. Repeat BG in 15 minutes glucose gel 1 dose PO DIRECTED PRN Patient Comments: 77.4 % gel. Give one dose by mouth as needed for BG les than 70 if patient is arousable, conscious and able to swallow. Repeat BG in 15 min nystatin 100,000 unit/gram cream 1 applic topical TID Bio-K plus 50 billion cell capsule,delayed release(DR/EC) 1 cap PO DAILY Qty: 7 0RF Rx Instructions: Take 3 hours apart from antibiotics ipratropium-albuterol 0.5 mg-3 mg(2.5 mg base)/3 mL Solution For Nebulization 3 ml UPD QID Qty: 90 0RF famotidine [Acid Controller] 20 mg tablet 20 mg PO DAILY prednisone 5 mg tablet 5 mg PO DAILY Combivent Respimat 20-100 mcg/actuation mist 1 puff inhalation Q6H PRN PRN (Reason: bronchospasm) nitroglycerin 0.4 mg tablet, sublingual 0.4 mg sublingual Q5 MIN PRN X3 PRN Rx Instructions: do not exceed 3 doses per episode lidocaine [Aspercreme (lidocaine)] 4 % adhesive patch,medicated 1 patch topical DAILY PRN Super Thera Ada M Tablet 1 tab PO DAILY guaifenesin [Mucinex] 1,200 mg tablet extended release 12hr 1,200 mg PO BID Patient Comments: 600mg q 12hr acetaminophen 325 mg capsule 975 mg PO .Q8 PRN furosemide [Lasix] 20 mg tablet 10 mg PO DAILY risperidone [Risperdal] 1 mg tablet 1 mg PO BID acetaminophen 500 mg tablet 1,000 mg PO BID clindamycin HCl [Cleocin HCl] 300 mg capsule 300 mg PO Q8H Rx Instructions: start 05/07/25. Take 1 capsule by mouth every 8 hours for 10 days for pneumonia. oxycodone 10 mg tablet 10 mg PO Q6H sodium phosphates 19-7 gram/118 mL enema 118 ml VA DAILY PRN Rx Instructions: 1 application rectally as needed if no results from Dulcolax suppository after 24 hours. HPI General Mode of arrival: EMS. Date/Time Provider Initiated Documentation: 05/15/25 21:18. Limitations to Documentation: no limitations. Information obtained by: patient. History of Present Illness 79 year old M presents to the emergency department with the chief complaint of cough, weakness, described as moderate, Patient started experiencing this week(s) (1) and it has been constant. No relieving factors improve symptom(s), No exacerbating factors reported . Patient notes denies chest pain and nausea/vomiting. Related Data Home Medications ?Medication ?Instructions ?Recorded ?Confirmed trazodone 100 mg tablet 150 mg PO HS 08/09/13 05/15/25 atorvastatin 40 mg tablet 40 mg PO HS 02/06/23 05/15/25 finasteride 5 mg tablet 5 mg PO DAILY 06/03/24 05/15/25 oxycodone 5 mg capsule 5 mg PO Q6H PRN PRN severe pain 06/03/24 05/15/25 (scale score 7-10) ipratropium 20 mcg-albuterol 100 1 puff inhalation Q6H PRN PRN 08/07/24 05/15/25 mcg/actuation mist for inhalation bronchospasm (Combivent Respimat) nitroglycerin 0.4 mg sublingual 0.4 mg sublingual Q5 MIN PRN X3 PRN 08/07/24 05/15/25 tablet venlafaxine 75 mg tablet 150 mg PO DAILY 10/19/24 05/15/25 cholecalciferol (vitamin D3) 25 1,000 unit PO DAILY 10/20/24 05/15/25 mcg (1,000 unit) capsule metoprolol tartrate 25 mg tablet 25 mg PO Q6H 10/20/24 05/15/25 polyethylene glycol 3350 17 gram 17 g PO BID PRN PRN 10/20/24 05/15/25 oral powder packet (Miralax) sennosides 8.6 mg-docusate sodium 2 tab PO BID 10/20/24 05/15/25 50 mg tablet (Senna-S) albuterol sulfate 90 mcg/actuation 2 puff inhalation Q4H PRN PRN 10/21/24 05/15/25 aerosol inhaler wheezing chlorhexidine gluconate 0.12 % 15 ml PO BID gingavitis 10/21/24 05/15/25 mouthwash (Peridex) glucagon 1 mg solution for 1 mg IM DIRECTED PRN 10/21/24 05/15/25 injection (GlucaGen HypoKit) glucose 1 dose PO DIRECTED PRN 10/21/24 05/15/25 lorazepam 0.5 mg tablet (Ativan) 0.5 mg PO Q8H PRN PRN agitation 10/21/24 05/15/25 acetaminophen 325 mg capsule 975 mg PO .Q8 PRN 11/02/24 05/15/25 guaifenesin 1,200 mg tablet, 1,200 mg PO BID 11/02/24 05/15/25 extended release 12 hr (Mucinex) lidocaine 4 % topical patch 1 patch topical DAILY PRN 11/02/24 05/15/25 (Aspercreme (lidocaine)) Held on 05/13/25. Instructions: Pt Stopped/Never Started multivitamin,tx-minerals (Super 1 tab PO DAILY 11/02/24 05/15/25 Thera Ada M tablet) furosemide 20 mg tablet (Lasix) 10 mg PO DAILY 02/04/25 05/15/25 nystatin 100,000 unit/gram topical 1 applic topical TID 02/15/25 05/15/25 cream L. acidophilus,casei,rhamnosus 50 1 cap PO DAILY #7 caps 02/17/25 05/15/25 billion cell capsule,delayed release (Bio-K plus) ipratropium 0.5 mg-albuterol 3 mg 3 ml UPD QID #90 mL 02/17/25 05/15/25 (2.5 mg base)/3 mL nebulization soln famotidine 20 mg tablet (Acid 20 mg PO DAILY 03/23/25 05/15/25 Controller) prednisone 5 mg tablet 5 mg PO DAILY 03/23/25 05/15/25 acetaminophen 500 mg tablet 1,000 mg PO BID 05/15/25 05/15/25 clindamycin HCl 300 mg capsule 300 mg PO Q8H 05/15/25 05/15/25 (Cleocin HCl) oxycodone 10 mg tablet 10 mg PO Q6H 05/15/25 05/15/25 risperidone 1 mg tablet (Risperdal) 1 mg PO BID 05/15/25 05/15/25 sodium phosphates 19 gram-7 118 ml VA DAILY PRN 05/15/25 05/15/25 gram/118 mL enema Previous Rx's ?Medication ?Instructions ?Recorded L. acidophilus,casei,rhamnosus 50 1 cap PO DAILY #7 caps 02/17/25 billion cell capsule,delayed release (Bio-K plus) ipratropium 0.5 mg-albuterol 3 mg 3 ml UPD QID #90 mL 02/17/25 (2.5 mg base)/3 mL nebulization soln Allergies Allergy/AdvReac Type Severity Reaction Status Date / Time fluticasone Allergy Unknown Headache Verified 05/15/25 21:20 gabapentin Allergy Unknown Psychosis Verified 05/15/25 21:20 pregabalin Allergy Unknown Psychosis Verified 05/15/25 21:20 doxycycline AdvReac Intermediate vomiting Verified 05/15/25 21:20 morphine AdvReac Unknown Psychosis Verified 05/15/25 21:20 General Stated Complaint: AMS/LOC HAROLDO: 3 Review of Systems All systems reviewed & are unremarkable except as noted in HPI and below Constitutional Constitutional: Reports chills, Reports fever(s) and Reports weakness Cardiovascular Cardiovascular: Denies chest pain and Denies dyspnea Respiratory Respiratory: Reports cough and Denies dyspnea Gastrointestinal Gastrointestinal: Denies abdominal pain, Denies nausea and Denies vomiting Neurologic Neurologic: Reports weakness Exam Const General: no acute distress Orientation: alert [facility] Head: normal to inspection Ears: external ears normal General nose exam: external nose normal Mouth: moist mucous membranes Eyes General: appearance normal, both eyes and all related structures Neck Neck: normal visual inspection Resp Auscultation: rhonchi and wheezes Cardio Jugular venous pressure: no JVD Rate: regular rate Skin General skin exam: no rashes or lesions noted Neuro General: patient alert and patient oriented x3 Extrem General: normal to inspection Psych Mental Status: mental status grossly normal Course Vital Signs Vital signs: Vital Signs Temperature 37.1 C 05/15/25 21:11 Pulse 111 H 05/15/25 21:11 Respiratory Rate 22 05/15/25 21:11 Blood Pressure 107/40 L 05/15/25 21:11 Pulse Oximetry 93 05/15/25 21:11 Temperature 37.1 C 05/15/25 21:11 Temperature Source Temporal Artery Scan 05/15/25 21:11 Pulse 111 H 05/15/25 21:11 Respiratory Rate 22 05/15/25 21:11 Blood Pressure 107/40 L 05/15/25 21:11 Blood Pressure Position Sitting 05/15/25 21:11 Pulse Oximetry 93 05/15/25 21:11 Oxygen Delivery Method Room Air 05/15/25 21:11 Oxygen Flow Rate 0 05/15/25 21:11 Pain Level 0 05/15/25 21:11 Lab/Test Results Lab/Test Results: 05/15/25 21:10 Blood Blood Culture - Pending 05/15/25 21:10 Blood Blood Culture - Pending Medical Decision Making 79-year-old male with a history of dementia, COPD, A-fib not on anticoagulation and is currently on clindamcyin for aspiration pneumonia and was seen here 2 days ago after a fall and had a negative CT head and C-spine comes in with persistent productive cough and low-grade fevers. He denies any chest pain, headache, vomiting. He does appear weak on exam and his room air saturation is 90 to 92% on room air. He has apical wheezing bilaterally and rhonchi at the bases bilaterally. Tenderness. There is edema up to the distal tib-fib area. No abdominal tenderness. She is significantly coughing and does some wet. Suspect continued respiratory infection and likely COPD exacerbation, will check CBC CMP lactate and obtain cultures and a chest x-ray and treat symptoms with DuoNeb and methylprednisolone. bp is 95/45, will give gentle hydration as he does have a chf history Patient has a leukocytosis and chronic anemia, chest x-ray without clear infiltrates, he is persistently coughing and given his been on clindamycin without improvement feel he needs broader coverage for likely respiratory infection I will give a dose of Zosyn and discussed with hospitalist about admission given his soft blood pressures Differential Diagnosis Differential Diagnosis: pneumonia,flu,copd exacerbation Medical Records Medical records reviewed: Yes I reviewed the patient's medical records. Lab Data Lab results reviewed: Yes I reviewed the patient's lab results. ECG Data Attestation: I personally reviewed and interpreted this ECG (s) as follows: Prior ECG tracings: available for review Interpretation: afib, rate of 104 no stemi but has significant motion artifact Quality:SDOH Health Related Social Needs: Health related social needs material hardship Health related social needs details n/a PFSH All Active Problems (Updated 05/15/25 @ 22:08 by Don Grady MD) Abrasion of forehead (Acute) Rash (Acute) COPD exacerbation (Acute) Hypotension (Acute) Acute respiratory acidosis (Acute) Hypoxemia (Acute) HCAP (healthcare-associated pneumonia) (Acute) Compression fracture of T12 vertebra (Acute) Anemia (Chronic) COPD exacerbation (Acute) Decubitus ulcer of sacral area (Acute) Aspiration pneumonia (Acute) Dementia with behavioral disturbance (Chronic) Aspiration pneumonia (Acute) Anemia (Chronic) CHF (congestive heart failure) (Chronic) Yeast infection of the skin (Acute) Acute respiratory failure with hypoxia and hypercarbia (Acute) Hemopneumothorax on left (Acute) Pain in joint, foot, left (Acute) Corns and callosities (Acute) Cellulitis (Acute) Venous (peripheral) insufficiency (Acute) PAD (peripheral artery disease) (Acute) Onychomycosis (Acute) Neuropathy (Acute) Atrial fibrillation (Chronic) Hearing loss (Acute) with subjective 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 Mononeuritis (Acute) Hyperlipidemia (Chronic) Essential (primary) hypertension (Chronic) BPH (benign prostatic hyperplasia) (Chronic) ADHD (Acute) ASCVD (arteriosclerotic cardiovascular disease) (Chronic) Long-term current use of opiate analgesic (Acute) Tobacco use disorder (Chronic) Venous stasis dermatitis (Acute) Peripheral edema (Acute) 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 Frequent falls (Acute) Medical History Viral meningitis Complete rotator cuff tear right Cervical spondylosis Bursitis 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
--- NOTE | 2025-05-15 21:30 | RT.EKG_ITS ---
APPROVED REPORT Exam: Resting ECG Reason for Exam: AMS Patient Location: E HR:104 bpm ECG Measurements Heart Rate 104 AXIS MA [id number] P [id number] QRSd 148 QRS 52 QT 363 T -33 QTc 477 Conclusion Atrial fibrillation...V-rate 86-136, irreg A-activity Ventricular premature complex...V complex w/ short R-R interval Right bundle branch block...QRSd>120, terminal axis(90,270) Lateral infarct, acute...ST >.10mV, V5 V6 I aVL Anteroseptal infarct, age indeterminate...Q >35mS, T neg, V1-V2 motion artifact, no stemi
[2025-05-15 21:43] LABS: BE (Venous) 6 mmol/L (-2-3); HCO3 (Venous) 30 mmol/L (23-28); O2 Sat (Venous) 96 %; TCO2 (Venous) 28 mmol/L (24-29); pCO2 (Venous) 46 mmHg (41-51); pO2 (Venous) 72 mmHg
[2025-05-15 21:44] LABS: Abs Immature Grans 0.07 10^3/uL (0.0-0.06); HCT 26.4 % (40.0-50.0); HGB 7.8 g/dL (13.5-17.5); Immature Grans % 0.6 %; MCH 25.1 pg (27.0-33.0); MCHC 29.5 % (32.0-36.0); MCV 85 fL (80-95); MPV 9.7 fL (8.0-11.0); Platelet Count 274 10^3/uL (130-400); RBC 3.11 10^6/uL (4.36-5.78); RDW 16.6 % (11.8-14.1); RDW-SD 50.6 fL; WBC 11.61 10^3/uL (4.4-10.8)
[2025-05-15] MEDS: methylPREDNISolone SUCC 125 MG VIAL IVP (21:44)
[2025-05-15] MEDS: Normal Saline Flush 10 ML SYR IVP (21:44)
[2025-05-15 21:59] LABS: Hypochromasia 1+
--- NOTE | 2025-05-15 22:00 | DI.VRAD_ITS ---
PROCEDURE INFORMATION: Exam: XR Chest Exam date and time: 05/15/2025 9:37 PM Age: 79 years old Clinical indication: Other: ? Pneumo TECHNIQUE: Imaging protocol: Radiologic exam of the chest. Views: 1 view. COMPARISON: CR XR PORTABLE CHEST AP 02/15/2025 10:15 AM FINDINGS: Lungs: No focal pulmonary consolidation is seen. Pleural spaces: No gross pleural effusion or pneumothorax is demonstrated. Heart/Mediastinum: The heart appears top-normal in size. Diaphragm: There is elevation of the left hemidiaphragm. Bones/joints: Surgical fixation hardware is redemonstrated along the left clavicle and along the lateral aspect of two lower left ribs. There is also redemonstration of fractures through the posterior aspect of the left 4th rib and through the lateral aspect of the left 5th rib which appear subacute but are also seen on the comparison exam from February 15, 2025. There is apparent resorption of the distal right clavicle, also seen on the comparison exam. IMPRESSION: Within the limits of the exam, no pneumothorax is seen. Dictated and Authenticated by: Tommie Tirado MD. Orderin Miguel A Ochoa MD
[2025-05-15] MEDS: Normal Saline 500 ML IV (22:04)
[2025-05-15 22:05] LABS: Magnesium 1.7 mg/dL (1.6-2.6)
[2025-05-15 22:06] LABS: ALT 8 U/L (10-49); AST 14 U/L (<34); Albumin 3.1 g/dL (3.2-5.0); Alkaline Phosphatase 70 U/L (46-116); Anion Gap 5.2 mmol/L (3-11); BUN 20 mg/dL (9-23); Bilirubin, Total 0.40 mg/dL (0.2-1.2); CO2 28.8 mmol/L (20.0-31.0); Calcium 8.6 mg/dL (8.3-10.6); Chloride 101 mmol/L (98-107); Glucose 184 mg/dL (74-106); Potassium 3.6 mmol/L (3.5-5.1); Sodium 135 mmol/L (136-145); Total Protein 6.6 g/dL (5.7-8.2)
[2025-05-15] MEDS: Albuterol/Ipratropium 3 ML UPD VIAL UPD (22:06)
[2025-05-15 22:12] LABS: COVID-19 PCR Negative (Negative); RSV PCR Negative (Negative)
[2025-05-15] MEDS: PIPERACILLIN/TAZO 4.5 GM in Normal Saline 100 ML IVPB (22:18)
--- NOTE | 2025-05-15 22:36 | W.PM.HP.N ---
Date of service: 05/15/25 Time of Service: 22:37 Assessment and Plan Assessment and plan (1) COPD exacerbation: Start date: 05/15/25 Status: Acute Assessment and plan: This is a 79-year-old gentleman who resides at the local [facility] having failed outpatient treatment of aspiration pneumonia and having what appears to be exacerbation of COPD. He did respond to respiratory treatment in the ED and will be continued on IV Solu-Medrol being weaned to prednisone as tolerated, he is on chronic low-dose prednisone. He is not severely hypoxic but will be on oxygen supplementation while hospitalized. He is not retaining CO2. Aggressive nebulizer treatments while hospitalized. Bedside swallow evaluation and modified diet as needed to avoid aspiration. His medical regimen can be modified to oral therapy once stabilized with discharge back to the [facility]. Hopefully this will be within the next 48 to 72 hours. He appears to be minimally active which may increase chances of respiratory issues. Patient is a DNR/DNI. (2) Aspiration pneumonia: Status: Chronic Assessment and plan: This appears to be a chronic problem with swallow evaluation to be reviewed if needed. Modify diet as needed. Imaging does not reveal infiltrates at this time but clinically the patient has been aspirating. He would not be on vancomycin at this time but if he has fever or increasing white count we should consider treatment for hospital-acquired pneumonia rather than aspiration or community-acquired pneumonia. (3) CHF (congestive heart failure): Status: Chronic Assessment and plan: The patient is on low-dose Lasix daily but does not appear to be fluid overloaded acutely. Check BNP and hold Lasix for now. Follow-up echocardiogram only if needed at this time with patient being a DNR/DNI and not acutely decompensated. He would not be monitored on telemetry but clinically with vital signs. (4) Dementia with behavioral disturbance: Status: Chronic Assessment and plan: Continue outpatient medical therapy which appear to be working well. (5) Atrial fibrillation: Status: Chronic Assessment and plan: Continue outpatient medical therapy with patient on Lovenox for now for DVT prophylaxis but long-term is at high risk for complications with anticoagulation. (6) Essential (primary) hypertension: Status: Chronic Assessment and plan: Continue outpatient medical therapy adjusting as needed with his acute presentation. If his blood pressure continues to be soft, metoprolol can be adjusted. Avoid IV hydration with a history of CHF. (7) ASCVD (arteriosclerotic cardiovascular disease): Status: Chronic Assessment and plan: Continue outpatient medical therapy and observe closely for decompensation. (8) Chronic low back pain: Status: Chronic Assessment and plan: PDMP was reviewed and patient did have a lower dose of oxycodone prescribed routinely before being placed in the [facility] early 2024. He was being prescribed oxycodone consistently before placement averaging 3 tablets daily. He is now on oxycodone 10 mg instead of 5 mg and is being given an average of 4 daily. Urine drug screen was positive for opiates which should not be positive for this dosing of oxycodone, confirmation of oxycodone will be sent for urine drug screen. The patient is low risk for abuse being given his medications by nurses and having advanced dementia. He is a DNR/DNI and approaching comfort measures if he continues to decompensate. No further interventions are appropriate at this time. (9) Hidradenitis suppurativa: Status: Chronic History of Present Illness History of Present Illness Chief Complaint: Altered mental status with low blood pressure, cough and low-grade fever. Narrative: This is a 79-year-old male patient who presented to the ED with 1 week history of cough, low-grade fever with chills and generalized weakness being off his baseline with altered mental status. He does have chronic dementia with behavioral abnormalities. This has been stable with medical therapy. He has been there some at least over this last year. He did have a fall 2 days prior to this presentation with negative evaluation for acute injury. He has been having problems aspiration with his dementia and is on treatment for aspiration pneumonia though the imaging recently does not reveal infiltrates. In the ED this visit imaging also did not reveal infiltrates. He does have COPD and this may be slightly exacerbated with the patient initiated on COPD exacerbation treatment. He does not appear septic at this time not meeting criteria and procalcitonin was negative. He was on clindamycin for his aspiration pneumonia and the ED physician did expand his antibiotic coverage to Zosyn with doxycycline added as well but vancomycin was withheld for now. He does not have an elevated white count and no measured fever in the ED. Patient did have a VBG in the ED which showed no CO2 retention. At the time I saw the patient he was talking and appeared to be at baseline. His chronic medical problems appear to be stable with a history of atrial fibrillation not on anticoagulation because of frequent falls. He does not have any complaints of chest pain or chest discomfort and troponins were not checked. He will be on Lovenox while hospitalized for DVT prophylaxis at least. He is a DNR/DNI. Review of Systems Narrative: 13 point review of systems otherwise unrevealing or stable with patient being a fair historian. PFSH All Active Problems (Updated 05/16/25 @ 01:30 by Alo Cortez) Hidradenitis suppurativa (Chronic) Abrasion of forehead (Acute) Rash (Acute) COPD exacerbation (Acute) Hypotension (Acute) Acute respiratory acidosis (Acute) Hypoxemia (Acute) HCAP (healthcare-associated pneumonia) (Acute) Compression fracture of T12 vertebra (Acute) Anemia (Chronic) COPD exacerbation (Acute) Decubitus ulcer of sacral area (Acute) Aspiration pneumonia (Chronic) Dementia with behavioral disturbance (Chronic) Aspiration pneumonia (Acute) Anemia (Chronic) CHF (congestive heart failure) (Chronic) Yeast infection of the skin (Acute) Acute respiratory failure with hypoxia and hypercarbia (Acute) Hemopneumothorax on left (Acute) Pain in joint, foot, left (Acute) Corns and callosities (Acute) Cellulitis (Acute) Venous (peripheral) insufficiency (Acute) PAD (peripheral artery disease) (Acute) Onychomycosis (Acute) Neuropathy (Acute) Atrial fibrillation (Chronic) Hearing loss (Acute) with subjective 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 Mononeuritis (Acute) Hyperlipidemia (Chronic) Essential (primary) hypertension (Chronic) BPH (benign prostatic hyperplasia) (Chronic) ADHD (Acute) ASCVD (arteriosclerotic cardiovascular disease) (Chronic) Long-term current use of opiate analgesic (Acute) Tobacco use disorder (Chronic) Venous stasis dermatitis (Acute) Peripheral edema (Acute) 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 Frequent falls (Acute) Medical History Viral meningitis Complete rotator cuff tear right Cervical spondylosis Bursitis 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 Exposure to Agent [place] Social History Smoking/Tobacco Use Status: Current every day Tobacco Type: cigarettes Smoking packs per day: 1 Smoking cigarettes per day: 20.0 Years smoked: 50 Smoking pack-years: 50.00 Smoking risk assessment performed?: Yes Alcohol Intake: never Drug use: Never Substance use type: does not use Housing: [facility] Do you feel safe at home: Yes Do you feel safe in your relationship?: Yes Meds Allergies and Home Medications Allergies Allergy/AdvReac Type Severity Reaction Status Date / Time fluticasone Allergy Unknown Headache Verified 05/15/25 21:20 gabapentin Allergy Unknown Psychosis Verified 05/15/25 21:20 pregabalin Allergy Unknown Psychosis Verified 05/15/25 21:20 doxycycline AdvReac Intermediate vomiting Verified 05/15/25 21:20 morphine AdvReac Unknown Psychosis Verified 05/15/25 21:20 Home Medications ?Medication ?Instructions ?Recorded ?Confirmed ?Type trazodone 100 mg tablet 150 mg PO HS 08/09/13 05/15/25 History atorvastatin 40 mg tablet 40 mg PO HS 02/06/23 05/15/25 History finasteride 5 mg tablet 5 mg PO DAILY 06/03/24 05/15/25 History oxycodone 5 mg capsule 5 mg PO Q6H PRN PRN severe pain 06/03/24 05/15/25 History (scale score 7-10) ipratropium 20 mcg-albuterol 100 1 puff inhalation Q6H PRN PRN 08/07/24 05/15/25 History mcg/actuation mist for inhalation bronchospasm (Combivent Respimat) nitroglycerin 0.4 mg sublingual 0.4 mg sublingual Q5 MIN PRN X3 PRN 08/07/24 05/15/25 History tablet venlafaxine 75 mg tablet 150 mg PO DAILY 10/19/24 05/15/25 History cholecalciferol (vitamin D3) 25 1,000 unit PO DAILY 10/20/24 05/15/25 History mcg (1,000 unit) capsule metoprolol tartrate 25 mg tablet 25 mg PO Q6H 10/20/24 05/15/25 History polyethylene glycol 3350 17 gram 17 g PO BID PRN PRN 10/20/24 05/15/25 History oral powder packet (Miralax) sennosides 8.6 mg-docusate sodium 2 tab PO BID 10/20/24 05/15/25 History 50 mg tablet (Senna-S) albuterol sulfate 90 mcg/actuation 2 puff inhalation Q4H PRN PRN 10/21/24 05/15/25 History aerosol inhaler wheezing chlorhexidine gluconate 0.12 % 15 ml PO BID gingavitis 10/21/24 05/15/25 History mouthwash (Peridex) glucagon 1 mg solution for 1 mg IM DIRECTED PRN 10/21/24 05/15/25 History injection (GlucaGen HypoKit) glucose 1 dose PO DIRECTED PRN 10/21/24 05/15/25 History lorazepam 0.5 mg tablet (Ativan) 0.5 mg PO Q8H PRN PRN agitation 10/21/24 05/15/25 History acetaminophen 325 mg capsule 975 mg PO .Q8 PRN 11/02/24 05/15/25 History guaifenesin 1,200 mg tablet, 1,200 mg PO BID 11/02/24 05/15/25 History extended release 12 hr (Mucinex) lidocaine 4 % topical patch 1 patch topical DAILY PRN 11/02/24 05/15/25 History (Aspercreme (lidocaine)) Held on 05/13/25. Instructions: Pt Stopped/Never Started multivitamin,tx-minerals (Super 1 tab PO DAILY 11/02/24 05/15/25 History Thera Ada M tablet) furosemide 20 mg tablet (Lasix) 10 mg PO DAILY 02/04/25 05/15/25 History nystatin 100,000 unit/gram topical 1 applic topical TID 02/15/25 05/15/25 History cream L. acidophilus,casei,rhamnosus 50 1 cap PO DAILY #7 caps 02/17/25 05/15/25 Rx billion cell capsule,delayed release (Bio-K plus) ipratropium 0.5 mg-albuterol 3 mg 3 ml UPD QID #90 mL 02/17/25 05/15/25 Rx (2.5 mg base)/3 mL nebulization soln famotidine 20 mg tablet (Acid 20 mg PO DAILY 03/23/25 05/15/25 History Controller) prednisone 5 mg tablet 5 mg PO DAILY 03/23/25 05/15/25 History acetaminophen 500 mg tablet 1,000 mg PO BID 05/15/25 05/15/25 History clindamycin HCl 300 mg capsule 300 mg PO Q8H 05/15/25 05/15/25 History (Cleocin HCl) oxycodone 10 mg tablet 10 mg PO Q6H 05/15/25 05/15/25 History risperidone 1 mg tablet (Risperdal) 1 mg PO BID 05/15/25 05/15/25 History sodium phosphates 19 gram-7 118 ml NE DAILY PRN 05/15/25 05/15/25 History gram/118 mL enema Exam Narrative Exam Narrative: General: Patient appears older than stated age, he is alert and oriented at least to person and place. He is in no acute distress. He is moderately obese with a large pannus and skin breakdown at the intertriginous regions and also over his buttocks and sacral area as well as inguinal areas which appear to be chronic. HEENT: Normocephalic, eyes with pupils equal and reactive light symmetrically, extraocular movement intact and close sclera anicteric. Oropharynx with dry mucosa. Neck: Supple without JVD. Back: Kyphotic with no CVA tenderness. Lungs: Bronchovesicular breath sounds diffusely with fair aeration, expiratory wheeze diffusely and scant, no focalizing expiratory rales or rhonchi. Heart: Irregularly irregular rhythm with 3/6 to 4/6 crescendo systolic murmur left sternal border. No gallops or rubs. Abdomen: Obese contour with pannus, soft palpation with no palpable hepatosplenomegaly. No focalizing tenderness or guarding. Genitalia/rectal: Circumcised penis with erythematous rash over the entire scrotum and surrounding inner thighs with vesiculation and scars from chronic rash. Intertriginous rash over the pubic area from the large pannus. Buttocks and sacral area as well as posterior thighs approximately reveal channeling of the subcutaneous tissue from what appears to be chronic abscess formation with slight purulent drainage from some of these regions. Also skin appears thickened and areas with edematous folds. (Patient states that he has had a problem with a rash in this area most of his life with hidradenitis suppurativa not on his problem list but is most likely because of his rash). Patient also has atrophic scar over his pubic area from previous indwelling suprapubic catheter. Extremity: 3+ nonpitting edema both lower extremities with loss of hair and slight erythema and hyperpigmentation appear to be chronic over the legs. Rash over the genitalia and intertriginous regions as mentioned. No clubbing or cyanosis. Fair cap refill. Skin: Rashes as described above. Otherwise normal color, warm and dry. Patient does have some bruising over his left face and left arm from recent fall. He also has superficial false tattoos over both upper extremities which she states his has placed on him. Neuro: Cranial nerves II through XII appear to be grossly intact, no focalizing motor deficits but decreased grasp and range of motion in both hands secondary to arthritis. No focalizing tremor. Psych: Normal affect and mood with discussion. No abnormal thought processes manifested. Short-term memory is decreased and long-term memory difficult to test with patient's dementia. Results Imaging Imaging Studies: Exam: XR Chest Exam date and time: 05/15/2025 9:37 PM Age: 79 years old Clinical indication: Other: ? Pneumo TECHNIQUE: Imaging protocol: Radiologic exam of the chest. Views: 1 view. COMPARISON: CR XR PORTABLE CHEST AP 02/15/2025 10:15 AM FINDINGS: Lungs: No focal pulmonary consolidation is seen. Pleural spaces: No gross pleural effusion or pneumothorax is demonstrated. Heart/Mediastinum: The heart appears top-normal in size. Diaphragm: There is elevation of the left hemidiaphragm. Bones/joints: Surgical fixation hardware is redemonstrated along the left clavicle and along the lateral aspect of two lower left ribs. There is also redemonstration of fractures through the posterior aspect of the left 4th rib and through the lateral aspect of the left 5th rib which appear subacute but are also seen on the comparison exam from February 15, 2025. There is apparent resorption of the distal right clavicle, also seen on the comparison exam. IMPRESSION: Within the limits of the exam, no pneumothorax is seen. Labs 05/16/25 06:15 05/16/25 06:15 Labs: Laboratory Results - last 24 hr 05/15/25 05/15/25 21:20 21:25 WBC 11.61 H RBC 3.11 L Hgb 7.8 L Hct 26.4 L MCV 85 MCH 25.1 L MCHC 29.5 L RDW 16.6 H Plt Count 274 MPV 9.7 Immature Gran % 0.6 Neutrophils % 82.7 Lymphocytes % 8.8 Monocytes % 6.9 Eosinophils % 0.7 Basophils % 0.3 Nucleated RBC % 0.0 Absolute Neutrophils 9.60 H Absolute Lymphocytes 1.02 L Absolute Monocytes 0.80 Absolute Eosinophils 0.08 Absolute Basophils 0.03 RBC Morphology See Below Hypochromasia 1+ VBG pH 7.43 H VBG pCO2 46 VBG pO2 72 VBG HCO3 30 H VBG Total CO2 28 VBG O2 Saturation 96 VBG Base Excess 6 H VBG Lactate 1.8 Sodium 135 L Potassium 3.6 Chloride 101 Carbon Dioxide 28.8 Anion Gap 5.2 BUN 20 Creatinine 0.72 L Est GFR (CKD-EPI 2020) 105.46 Glucose 184 H Calcium 8.6 Magnesium 1.7 Total Bilirubin 0.40 AST 14 ALT 8 L Alkaline Phosphatase 70 Total Protein 6.6 Albumin 3.1 L COVID-19 Source Nasopharynx SARS-CoV-2 (PCR) Negative Influenza Type A (PCR) Negative Influenza Type B (PCR) Negative RSV (PCR) Negative Last Vital Signs Temp 37.1 C 05/15/25 21:11 Pulse 107 H 05/15/25 22:21 Resp 14 05/15/25 22:21 BP 93/51 L 05/15/25 22:15 Pulse Ox 100 05/15/25 22:15 VTE Prohylaxis Risk Level: Moderate/High Risk Contraindications: Medical contrainidcation (Long-term anticoagulation as high risk with frequent falls and advanced dementia.) Prophylaxis: Pharmacologic and Mechanical Time Spent Time spent with Patient: >75 minutes Time was spent: preparing to see the patient(eg.review tests), obtaining and/or reviewing separately otained hiistory, ordering medications,tests, procedures, indepentently interpreting results and care coordination
--- NOTE | 2025-05-15 23:57 | W.PC.ACHO ---
Registration Status: REG ER Primary Language: Preferred Language: [place] ED Information & Data Chief Complaint AMS/LOC 05/15/25 22:21 Chief Complaint AMS/LOC 05/15/25 21:24 [facility]riage Note [facility] 05/15/25 21:11 had a fall on 05/13 and currently on abx for pneumonia. staff reports new onset of AMS since this morning and BP that has been trending down as well as increased lactic acid. temp of 100 for EMS. Oriented only to self on arrival. 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 Exposure to Agent [facility] Most Recent Vital Signs Temperature 37.4 C 05/15/25 23:08 Temperature Source Tympanic 05/15/25 23:08 Pulse 105 H 05/15/25 23:01 Pulse 108 H 05/15/25 23:01 Respiratory Rate 10 L 05/15/25 23:01 Respiratory Effort Normal 05/15/25 22:21 Respiratory Depth Normal 05/15/25 22:21 Respiratory Pattern Normal 05/15/25 22:21 Blood Pressure 91/44 L 05/15/25 23:01 Blood Pressure Mean 59 05/15/25 23:01 Blood Pressure Position Sitting 05/15/25 21:11 Pulse Oximetry 96 05/15/25 23:09 Oxygen Delivery Method Nasal Cannula 05/15/25 23:09 Oxygen Flow Rate 2 05/15/25 23:09 Pain Level 0 05/15/25 22:21 Allergies fluticasone Allergy (Unknown, Verified 05/15/25 21:20) Headache gabapentin Allergy (Unknown, Verified 05/15/25 21:20) Psychosis pregabalin Allergy (Unknown, Verified 05/15/25 21:20) Psychosis doxycycline Adverse Reaction (Intermediate, Verified 05/15/25 21:20) vomiting morphine Adverse Reaction (Unknown, Verified 05/15/25 21:20) Psychosis Active Medications Generic Name Dose Route Start Last Admin Trade Name Freq PRN Reason Stop Dose Admin Sodium Chloride 0 ml 05/15/25 21:10 05/15/25 21:44 Normal Saline Flush 10 Ml Syr IVP 10 ml PRN PRN Administration IV IV Catheter Type [Right Peripheral IV Forearm] IV Catheter Gauge [Right 20 Forearm] Diagnostics 05/15/25 05/15/25 05/15/25 Range/Units 21:30 21:25 21:20 WBC 11.61 H (4.4-10.8) 10^3/uL RBC 3.11 L (4.36-5.78) 10^6/uL Hgb 7.8 L (13.5-17.5) g/dL Hct 26.4 L (40.0-50.0) % MCV 85 (80-95) fL MCH 25.1 L (27.0-33.0) pg MCHC 29.5 L (32.0-36.0) % RDW 16.6 H (11.8-14.1) % Plt Count 274 (130-400) 10^3/uL MPV 9.7 (8.0-11.0) fL Immature Gran % 0.6 % Neutrophils % 82.7 % Lymphocytes % 8.8 % Monocytes % 6.9 % Eosinophils % 0.7 % Basophils % 0.3 % Nucleated RBC % 0.0 (0.0-0.3) % Absolute Neutrophils 9.60 H (1.2-6.7) 10^3/uL Absolute Lymphocytes 1.02 L (1.2-3.4) 10^3/uL Absolute Monocytes 0.80 (0.1-0.8) 10^3/uL Absolute Eosinophils 0.08 (0.0-0.7) 10^3/uL Absolute Basophils 0.03 (0.0-0.2) 10^3/uL RBC Morphology See Below Hypochromasia 1+ VBG pH 7.43 H (7.31-7.41) VBG pCO2 46 (41-51) mmHg VBG pO2 72 mmHg VBG HCO3 30 H (23-28) mmol/L VBG Total CO2 28 (24-29) mmol/L VBG O2 Saturation 96 % VBG Base Excess 6 H (-2-3) mmol/L VBG Lactate 1.8 (<or=2.0) mmol/L Sodium 135 L (136-145) mmol/L Potassium 3.6 (3.5-5.1) mmol/L Chloride 101 (98-107) mmol/L Carbon Dioxide 28.8 (20.0-31.0) mmol/L Anion Gap 5.2 (3-11) mmol/L BUN 20 (9-23) mg/dL Creatinine 0.72 L (0.73-1.18) mg/dL Est GFR (CKD-EPI 2020) 105.46 (mL/min/1.73m2) Glucose 184 H (74-106) mg/dL Calcium 8.6 (8.3-10.6) mg/dL Magnesium 1.7 (1.6-2.6) mg/dL Total Bilirubin 0.40 (0.2-1.2) mg/dL AST 14 (<34) U/L ALT 8 L (10-49) U/L Alkaline Phosphatase 70 (46-116) U/L Total Protein 6.6 (5.7-8.2) g/dL Albumin 3.1 L (3.2-5.0) g/dL Procalcitonin Pending COVID-19 Source Nasopharynx SARS-CoV-2 (PCR) Negative (Negative) Influenza Type A (PCR) Negative (Negative) Influenza Type B (PCR) Negative (Negative) RSV (PCR) Negative (Negative) 05/15/25 21:30 Blood Culture - Pending Blood 05/15/25 21:10 Blood Culture - Pending Blood Intake and Output - 24 Hour Total 05/15/25 21:08 thru 05/15/25 23:19 Intake Total 600 Balance 600 Weight 86.8 kg Intake: IV 600 Falls Risk Assessment History of Falls Previous History 05/15/25 22:21 Contributing Factors Confusion,Unstable, 05/15/25 22:21 Impairments,Incontinence, Medications Ambulatory Aids Uses ambulatory device 05/15/25 22:21 Tubes/Lines None 05/15/25 22:21 Gait Evaluation W/no contributing factors 05/15/25 22:21 Cognition Cognitive impairment 05/15/25 22:21 Fall Total Score 70 05/15/25 22:21 Level of Risk High Risk 05/15/25 22:21 Problems (Last Reviewed 03/23/25 @ 19:08 by Faustino Burgos MD) COPD exacerbation (Acute) Hypotension (Acute) Aspiration pneumonia (Chronic) Dementia with behavioral disturbance (Chronic) CHF (congestive heart failure) (Chronic) Atrial fibrillation (Chronic) Essential (primary) hypertension (Chronic) ASCVD (arteriosclerotic cardiovascular disease) (Chronic) Chronic low back pain (Chronic) Attestation Statement: By documenting the first initial, last name, and credentials of the reporting nurse below, both parties acknowledge that all relevant information regarding the patient handoff has been communicated, and that all questions have been addressed to ensure continuity and safety of care. Additional Patient Information/Comments: Report Received From: Kaylie CHAVIRA at [id number]
[2025-05-16] VITALS (12 sets, daily range): BP systolic 110–128; BP diastolic 59–81; PULSE 86–108; RESP 16–18; TEMP 36.3–36.8; O2SAT 94–96
[2025-05-16 00:22] LABS: Procalcitonin < 0.10 ng/mL
[2025-05-16] MEDS: Lidocaine 2% Jelly 6 ML SYR TP (01:54)
[2025-05-16] MEDS: DOXYCYCLINE 100 MG in Normal Saline 100 ML IVPB ×2 (01:54→14:11)
[2025-05-16] MEDS: Normal Saline Flush 10 ML SYR IVP ×4 (01:55→20:09)
[2025-05-16 03:06] LABS: Glucose Negative (Negative)
[2025-05-16 03:37] LABS: Cannabinoids THC Negative (Negative)
[2025-05-16] MEDS: PIPERACILLIN/TAZO 3.375 GM in Normal Saline 50 ML IVPB ×4 (03:40→22:00)
[2025-05-16] MEDS: methylPREDNISolone SUCC 40 MG VIAL IVP ×3 (06:43→21:57)
[2025-05-16 06:45] LABS: HCT 27.5 % (40.0-50.0); MCH 24.9 pg (27.0-33.0); MCHC 29.1 % (32.0-36.0); MCV 86 fL (80-95); MPV 11.4 fL (8.0-11.0); Platelet Count 182 10^3/uL (130-400); RBC 3.21 10^6/uL (4.36-5.78); RDW 16.7 % (11.8-14.1); RDW-SD 51.8 fL; WBC 10.42 10^3/uL (4.4-10.8)
[2025-05-16] MEDS: Metoprolol 12.5 MG TAB 25 MG PO ×3 (06:45→19:56)
[2025-05-16 06:51] LABS: HGB 8.0 g/dL (13.5-17.5)
[2025-05-16 07:04] LABS: ALT 8 U/L (10-49); AST 14 U/L (<34); Albumin 3.0 g/dL (3.2-5.0); Alkaline Phosphatase 68 U/L (46-116); Anion Gap 9.1 mmol/L (3-11); BUN 17 mg/dL (9-23); Bilirubin, Total 0.40 mg/dL (0.2-1.2); CO2 27.9 mmol/L (20.0-31.0); Calcium 8.5 mg/dL (8.3-10.6); Chloride 102 mmol/L (98-107); Glucose 208 mg/dL (74-106); Magnesium 1.7 mg/dL (1.6-2.6); Potassium 4.0 mmol/L (3.5-5.1); Sodium 139 mmol/L (136-145); Total Protein 6.6 g/dL (5.7-8.2)
[2025-05-16] MEDS: Albuterol/Ipratropium 3 ML UPD VIAL UPD ×4 (08:45→20:10)
[2025-05-16] MEDS: Venlafaxine 75 MG CAPCR 150 MG PO (09:36)
[2025-05-16] MEDS: risperiDONE 1 MG TAB PO ×2 (09:37→19:57)
[2025-05-16] MEDS: Polyethylene Glycol 3350 17 GM PACKET PO ×2 (09:37→19:57)
--- NOTE | 2025-05-16 11:25 | CHAPLAIN ---
Bijan was in bed when I visited. He told me that his had tried to visit but wasn't allowed by the guards on the [place]. He went to tell me about growing up with him mom, whom he said was an alcoholic, and five half sisters. He was tearful at times talking about this mom and a brother, and whispering so I couldn't hear everything he said. He was confused about details about being here.
[2025-05-16] MEDS: Insulin Aspart 300 UNITS/3 ML PEN SC ×2 (12:46→17:20)
--- NOTE | 2025-05-16 16:40 | PGE_ITS ---
Date of Service Date of service: 05/16/25 Time of Service: 08:00 Assessment and Plan Assessment and plan (1) COPD exacerbation: Start date: 05/15/25 Status: Acute Assessment and plan: This is a 79-year-old gentleman who [facility] having failed outpatient treatment of aspiration pneumonia and having what appears to be exacerbation of COPD. He did respond to respiratory treatment in the ED and will be continued on IV Solu-Medrol being weaned to prednisone as tolerated, he is on chronic low-dose prednisone. He is not severely hypoxic but will be on oxygen supplementation while hospitalized. He is not retaining CO2. Aggressive nebulizer treatments while hospitalized. Bedside swallow evaluation and mo dified diet as needed to avoid aspiration. His medical regimen can be modified to oral therapy once stabilized with [facility] to the [facility]. Hopefully this will be within the next 48 to 72 hours. He appears to be minimally active which may increase chances of respiratory issues. Patient is a DNR/DNI. May 16: Improving, on room air. Discharge back to facility when able. (2) Aspiration pneumonia: Status: Chronic Assessment and plan: This appears to be a chronic problem with swallow evaluation to be reviewed if needed. Modify diet as needed. Imaging does not reveal infiltrates at this time but clinically the patient has been aspirating. He would not be on vanc omycin at this time but if he has fever or increasing white count we should consider treatment for hospital-acquired pneumonia rather than aspiration or community-acquired pneumonia. May 16: recommend ST evaluation after discharge. (3) CHF (congestive heart failure): Status: Chronic Assessment and plan: The patient is on low-dose Lasix daily but does not appear to be fluid overloaded acutely. Check BNP and hold Lasix for now. Follow-up echocardiogram only if needed at this time with patient being a DNR/DNI and not acutely decompensated. He would not be monitored on telemetry but clinically with vital signs. (4) Dementia with behavioral disturbance: Status: Chronic Assessment and plan: Continue outpatient medical therapy which appear to be working well. (5) Atrial fibrillation: Status: Chronic Assessment and plan: Continue outpatient medical therapy with patient on Lovenox for now for DVT prophylaxis but long-term is at high risk for complications with anticoagulation. (6) Essential (primary) hypertension: Status: Chronic Assessment and plan: Continue outpatient medical therapy adjusting as needed with his acute presentation. If his blood pressure continues to be soft, metoprolol can be adjusted. Avoid IV hydration with a history of CHF. (7) ASCVD (arteriosclerotic cardiovascular disease): Status: Chronic Assessment and plan: Continue outpatient medical therapy and observe closely for decompensation. (8) Chronic low back pain: Status: Chronic Assessment and plan: PDMP was reviewed and patient did have a lower dose of oxycodone prescribed routinely before [facility]. He was being prescribed oxycodone consistently before placement averaging 3 tablets daily. He is now on oxycodone 10 mg instead of 5 mg and is being given an average of 4 daily. Urine drug screen was positive for opiates which should not be positive for this dosing of oxycodone, confirmation of oxycodone will be sent for urine drug screen. The patient is low risk for abuse being given his medications by nurses and having advanced dementia. He is a DNR/DNI and approaching comfort measures if he continues to decompensate. No further interventions are appropriate at this time. (9) Hidradenitis suppurativa: Status: Chronic Assessment and plan: Outpatient followup recommended Subjective Subjective Interval history since last seen: Mr. Mortensen is irritable with staff. He wants to return to his facility, which cannot take him back on the holiday. Exam Narrative Exam Narrative: General: This is an irritable man in no distress HEENT: Normocephalic, atraumatic CV: Irregular rate and irregular rhythm with loud systolic murmur Resp: CTAB Abd: soft, NTND. Buttock area concerning for HS and rash. MSK: voluntary motion x4 Neuro: awake, alert, no focal deficits Objective Last Vital Signs Temp 36.8 C 05/16/25 14:58 Pulse 100 H 05/16/25 14:58 Resp 16 05/16/25 14:58 BP 125/59 L 05/16/25 14:58 Pulse Ox 96 05/16/25 14:58 Laboratory Results - last 24 hr 05/15/25 05/15/25 05/15/25 21:20 21:25 21:30 WBC 11.61 H RBC 3.11 L Hgb 7.8 L Hct 26.4 L MCV 85 MCH 25.1 L MCHC 29.5 L RDW 16.6 H Plt Count 274 MPV 9.7 Immature Gran % 0.6 Neutrophils % 82.7 Lymphocytes % 8.8 Monocytes % 6.9 Eosinophils % 0.7 Basophils % 0.3 Nucleated RBC % 0.0 Absolute Neutrophils 9.60 H Absolute Lymphocytes 1.02 L Absolute Monocytes 0.80 Absolute Eosinophils 0.08 Absolute Basophils 0.03 RBC Morphology See Below Hypochromasia 1+ VBG pH 7.43 H VBG pCO2 46 VBG pO2 72 VBG HCO3 30 H VBG Total CO2 28 VBG O2 Saturation 96 VBG Base Excess 6 H VBG Lactate 1.8 Sodium 135 L Potassium 3.6 Chloride 101 Carbon Dioxide 28.8 Anion Gap 5.2 BUN 20 Creatinine 0.72 L Est GFR (CKD-EPI 2020) 105.46 Glucose 184 H Calcium 8.6 Magnesium 1.7 Total Bilirubin 0.40 AST 14 ALT 8 L Alkaline Phosphatase 70 NT-Pro-B Natriuret Pep Total Protein 6.6 Albumin 3.1 L Procalcitonin < 0.10 Urine Color Urine Clarity Urine pH Ur Specific [place] Urine Protein Urine Ketones Urine Blood Urine Nitrite Urine Bilirubin Urine Urobilinogen Ur Leukocyte Esterase Urine Glucose Urine Opiates Screen Urine Methadone Screen Ur Barbiturates Screen Ur Tricyclics Screen Ur Amphetamines Screen U Benzodiazepines Scrn Urine Cocaine Screen U Cannabinoids Screen COVID-19 Source Nasopharynx SARS-CoV-2 (PCR) Negative Influenza Type A (PCR) Negative Influenza Type B (PCR) Negative RSV (PCR) Negative 05/16/25 05/16/25 05/16/25 01:27 02:15 06:15 WBC 10.42 RBC 3.21 L Hgb 8.0 L Hct 27.5 L MCV 86 MCH 24.9 L MCHC 29.1 L RDW 16.7 H Plt Count 182 MPV 11.4 H Immature Gran % Neutrophils % Lymphocytes % Monocytes % Eosinophils % Basophils % Nucleated RBC % Absolute Neutrophils Absolute Lymphocytes Absolute Monocytes Absolute Eosinophils Absolute Basophils RBC Morphology Hypochromasia VBG pH VBG pCO2 VBG pO2 VBG HCO3 VBG Total CO2 VBG O2 Saturation VBG Base Excess VBG Lactate Sodium 139 Potassium 4.0 Chloride 102 Carbon Dioxide 27.9 Anion Gap 9.1 BUN 17 Creatinine 0.67 L Est GFR (CKD-EPI 2020) 114.59 Glucose 208 H Calcium 8.5 Magnesium 1.7 Total Bilirubin 0.40 AST 14 ALT 8 L Alkaline Phosphatase 68 NT-Pro-B Natriuret Pep Cancelled 3486 H Total Protein 6.6 Albumin 3.0 L Procalcitonin Urine Color Yellow Urine Clarity Clear Urine pH 5.5 Ur Specific [place] 1.020 Urine Protein Trace Urine Ketones Negative Urine Blood Negative Urine Nitrite Negative Urine Bilirubin Negative Urine Urobilinogen 0.2 Ur Leukocyte Esterase Negative Urine Glucose Negative Urine Opiates Screen Positive A Urine Methadone Screen Negative Ur Barbiturates Screen Negative Ur Tricyclics Screen Negative Ur Amphetamines Screen Negative U Benzodiazepines Scrn Negative Urine Cocaine Screen Negative U Cannabinoids Screen Negative COVID-19 Source SARS-CoV-2 (PCR) Influenza Type A (PCR) Influenza Type B (PCR) RSV (PCR) VTE Prohylaxis Risk Level: Moderate/High Risk Contraindications: None Prophylaxis: Pharmacologic Time Spent with Patient Time Spent with Patient: 25-34 minutes Time was spent: preparing to see the patient(eg.review tests), obtaining and/or reviewing separately otained hiistory, ordering medications,tests, procedures, referring, communicating with other health outdoor emergency care technician, indepentently interpreting results, counseling the patient and care coordination
[2025-05-16] MEDS: Nystatin POWDER 15 GM JAR TP ×2 (17:39→20:31)
[2025-05-16] MEDS: Sennosides/Docusate Sodium TAB 2 TAB PO (19:56)
[2025-05-16] MEDS: guaiFENesin 600 MG TABCR 1200 MG PO (19:56)
[2025-05-16] MEDS: traZODone 100 MG TAB 150 MG PO (19:56)
[2025-05-16] MEDS: Chlorhexidine Gluconate 0.12% Mouthwash 15 ML BTL PO (19:57)
[2025-05-16] MEDS: Atorvastatin 40 MG TAB PO (19:57)
[2025-05-16] MEDS: Acetaminophen 325 MG TAB 650 MG PO (20:08)
[2025-05-17 00:45] VITALS: BP 117/70; PULSE 90; RESP 15; TEMP 36.5; O2SAT 95
[2025-05-17] MEDS: Metoprolol 12.5 MG TAB 25 MG PO ×3 (00:46→11:54)
[2025-05-17] MEDS: DOXYCYCLINE 100 MG in Normal Saline 100 ML IVPB (01:44)
[2025-05-17 02:46] VITALS: BP 126/78; PULSE 88; RESP 16; TEMP 36.4; O2SAT 96
[2025-05-17] MEDS: PIPERACILLIN/TAZO 3.375 GM in Normal Saline 50 ML IVPB ×2 (03:45→09:18)
[2025-05-17 05:30] VITALS: BP 120/82; PULSE 80
[2025-05-17] MEDS: methylPREDNISolone SUCC 40 MG VIAL IVP (05:33)
[2025-05-17] MEDS: Finasteride 5 MG TAB PO (07:22)
[2025-05-17] MEDS: Normal Saline Flush 10 ML SYR IVP (07:22)
[2025-05-17] MEDS: Famotidine 20 MG TAB PO (07:22)
[2025-05-17] MEDS: Nystatin POWDER 15 GM JAR TP (07:22)
[2025-05-17] MEDS: Cholecalciferol (Vitamin D3) 1,000 UNIT TAB 1000 UNITS PO (07:22)
[2025-05-17] MEDS: risperiDONE 1 MG TAB PO (07:22)
[2025-05-17] MEDS: Venlafaxine 75 MG CAPCR 150 MG PO (07:22)
[2025-05-17] MEDS: Sennosides/Docusate Sodium TAB 2 TAB PO (07:22)
[2025-05-17] MEDS: Polyethylene Glycol 3350 17 GM PACKET PO (07:23)
[2025-05-17] MEDS: Chlorhexidine Gluconate 0.12% Mouthwash 15 ML BTL PO (07:25)
[2025-05-17] MEDS: Insulin Aspart 300 UNITS/3 ML PEN SC (07:43)
[2025-05-17 07:49] VITALS: BP 133/82; PULSE 88; RESP 16; TEMP 36.9; O2SAT 98
[2025-05-17 08:36] VITALS: PULSE 88; RESP 25; O2SAT 93
[2025-05-17] MEDS: Albuterol/Ipratropium 3 ML UPD VIAL UPD (08:36)
--- NOTE | 2025-05-17 09:00 | INITIAL_ITS ---
Date of service: 05/17/25 Time of Service: 09:00 Care Management Initial Assmt Initial Assessment Reason for Hospitalization: COPD Exacerbation Functional Status/Living Situation Patient Presentation: Bijan was sitting up in a chair waiting for his ride to return to [facility] where he lives, when CM met with him. He engaged easily with CM and admitted he was happy to be returning to his home. Bijan was admitted with COPD but is doing well. He is not requiring oxygen and his vital signs and oxygenation are stable. He will be transferred back this afternoon. Town of Residence: [facility] Resides with: Other (SNF) Significant Other/Family: Local ( and children) Natural Supports: Employment Status: Disabled Instrumental Activities of Daily Living (ADLs): Requires support Physical Functioning/Mobility Assistive Device: walker and wheelchair Advance Directives Advance Directives: Do you have an Advance Directive: N , 15:47 AD On File at [facility]: N 09/05/18, 15:47 Date Asked 05/15/25 05/15/25, 15:32 AD Date Reviewed COLST On File at [facility] Yes 10/19/24, 16:14 COLST Date Scanned Code Status Resuscitation Status DNR/DNI Portal Pt does not currently have a portal and education provided: Yes Insurance Coverage/Financial Issues Insurance: Medicare A&B Financial Assist 100 Care Team Visit Care Team Role Provider Type Dustin Boyer MD MD [facility] STAFF PHYSICIAN Brijesh Elliott Primary Care Provider [facility] STAFF PHYSICIAN Sofía Landin, NATY, [facility] Other Providers SWITCHBOARD WIRE WORKER HELPER Contreras Vargas RDN Other Providers SWITCHBOARD WIRE WORKER HELPER Don Grady MD Emergency Provider [facility] STAFF PHYSICIAN Alo Cortez Admit Provider [facility] STAFF PHYSICIAN Attending Provider Discharge Potential Discharge Needs: Other (return to SNF) Anticipated Barriers to Discharge: None Identified Patient/Family Education Needs: Review discharge instructions, discuss Ask Me Three Transportation: RCT Plan: Bijan will be discharged back to [facility] when medically clear. He will follow up with the facility provider and plan of care and transport via RCT coordinated by CM. CM will follow and continue to assess for discharge needs. Social Determinants of Health Screening Social Determinants of health last assessed in clinic: 05/17/25 Will the Patient Participate in the Screening?: Yes Do you worry about having a steady place to live?: no Problems where you live: no known problems In the past 12 months, have you had to go without electric, gas, oil or water in your home?: no 1. Within the past 12 months, we worried whether our food would run out before we got money to buy more.: Never true 2. Within the past 12 months, the food we bought just didn't last and we didn't have money to get more.: Never true Has lack of transportation kept you from medical appointments or from doing things needed for daily living?: no Has anyone in your life made you feel unsafe or unsupported?: no How hard is it for you to pay for the very basics like food, housing, medical care, and heating? Would you say it is:: Not hard at all Do you want help finding or keeping work or a job?: I do not need or want help If for any reason you need help with day-to-day activities such as bathing, preparing meals, shopping, managing finances, etc., do you get the help you need?: I don?t need any help How often do you feel lonely or isolated from those around you?: Never Do you speak a language other than Pashto at home?: No PFSH All Active Problems (Updated 05/16/25 @ 01:30 by Alo Cortez) Hidradenitis suppurativa (Chronic) Abrasion of forehead (Acute) Rash (Acute) COPD exacerbation (Acute) Hypotension (Acute) Acute respiratory acidosis (Acute) Hypoxemia (Acute) HCAP (healthcare-associated pneumonia) (Acute) Compression fracture of T12 vertebra (Acute) Anemia (Chronic) COPD exacerbation (Acute) Decubitus ulcer of sacral area (Acute) Aspiration pneumonia (Chronic) Dementia with behavioral disturbance (Chronic) Aspiration pneumonia (Acute) Anemia (Chronic) CHF (congestive heart failure) (Chronic) Yeast infection of the skin (Acute) Acute respiratory failure with hypoxia and hypercarbia (Acute) Hemopneumothorax on left (Acute) Pain in joint, foot, left (Acute) Corns and callosities (Acute) Cellulitis (Acute) Venous (peripheral) insufficiency (Acute) PAD (peripheral artery disease) (Acute) Onychomycosis (Acute) Neuropathy (Acute) Atrial fibrillation (Chronic) Hearing loss (Acute) with subjective 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 Mononeuritis (Acute) Hyperlipidemia (Chronic) Essential (primary) hypertension (Chronic) BPH (benign prostatic hyperplasia) (Chronic) ADHD (Acute) ASCVD (arteriosclerotic cardiovascular disease) (Chronic) Long-term current use of opiate analgesic (Acute) Tobacco use disorder (Chronic) Venous stasis dermatitis (Acute) Peripheral edema (Acute) 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 Frequent falls (Acute) Medical History Viral meningitis Complete rotator cuff tear right Cervical spondylosis Bursitis 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
[2025-05-17 10:01] LABS: HCT 28.4 % (40.0-50.0); HGB 8.3 g/dL (13.5-17.5); MCH 24.3 pg (27.0-33.0); MCHC 29.2 % (32.0-36.0); MCV 83 fL (80-95); MPV 9.4 fL (8.0-11.0); RBC 3.41 10^6/uL (4.36-5.78); RDW 16.7 % (11.8-14.1); RDW-SD 50.0 fL; WBC 7.59 10^3/uL (4.4-10.8)
[2025-05-17 10:07] LABS: Magnesium 1.8 mg/dL (1.6-2.6)
[2025-05-17 10:08] LABS: Platelet Count 291 10^3/uL (130-400)
[2025-05-17 10:09] LABS: ALT 11 U/L (10-49); AST 19 U/L (<34); Albumin 3.2 g/dL (3.2-5.0); Alkaline Phosphatase 67 U/L (46-116); Anion Gap 10 mmol/L (3-11); BUN 20 mg/dL (9-23); Bilirubin, Total 0.30 mg/dL (0.2-1.2); CO2 26.1 mmol/L (20.0-31.0); Calcium 8.8 mg/dL (8.3-10.6); Chloride 100 mmol/L (98-107); Glucose 152 mg/dL (74-106); Potassium 3.7 mmol/L (3.5-5.1); Sodium 136 mmol/L (136-145); Total Protein 6.7 g/dL (5.7-8.2)
--- NOTE | 2025-05-17 10:28 | DSE_ITS ---
Date of service: 05/17/25 Time of Service: 08:00 DS: Diagnosis Discharge Diagnosis (1) COPD exacerbation: Status: Acute (2) Aspiration pneumonia: Status: Chronic (3) CHF (congestive heart failure): Status: Chronic (4) Dementia with behavioral disturbance: Status: Chronic (5) Atrial fibrillation: Status: Chronic (6) Essential (primary) hypertension: Status: Chronic (7) ASCVD (arteriosclerotic cardiovascular disease): Status: Chronic (8) Chronic low back pain: Status: Chronic (9) Hidradenitis suppurativa: Status: Chronic Discharge Plan Disposition Patient Disposition: Alf Facility(SNF) Condition: Fair Discharge Details Reason For Visit: COPD exacerbation, Recurrent aspiration pneumonia Admit Date/Time: 05/15/25 23:16 Admit Provider: Alo Cortez Attending Provider: Alo Cortez Primary Care Provider: Brijesh Elliott Hospital Course Hospital Course: Bijan Mortensen is a 79 year old man presenting May 15 with cough and fever, with concurrent diagnosis of aspiration pneumonia on clindamycin. He resides at [facility]. He was found to be in COPD exacerbation almost surely triggered by aspiration pneumonia. He was started on IV antibiotics directed at gram negative organisms and on IV steroids, and he was given bronchodilator treatments. He improved overnight and is now comfortable on room air. At this time he is safe to return to his facility. Recommend discontinuing antibiotics at this time. No other changes to home medications. Recommend outpatient followup for treatment of likely hidradenitis suppurativa on buttocks. Home Meds and New Rx's Prescriptions: Continued atorvastatin 40 mg tablet 40 mg PO HS trazodone 100 MG tablet 150 mg PO HS finasteride 5 mg tablet 5 mg PO DAILY oxycodone 5 mg capsule 5 mg PO Q6H PRN PRN (Reason: severe pain (scale score 7-10)) venlafaxine 75 mg tablet 150 mg PO DAILY cholecalciferol (vitamin D3) 25 mcg (1,000 unit) capsule 1,000 unit PO DAILY metoprolol tartrate 25 mg tablet 25 mg PO Q6H polyethylene glycol 3350 [Miralax] 17 gram powder in packet 17 g PO BID PRN PRN sennosides-docusate sodium [Senna-S] 8.6-50 mg tablet 2 tab PO BID lorazepam [Ativan] 0.5 mg tablet 0.5 mg PO Q8H PRN PRN (Reason: agitation) albuterol sulfate 90 mcg/actuation HFA aerosol inhaler 2 puff inhalation Q4H PRN PRN (Reason: wheezing) chlorhexidine gluconate [Peridex] 0.12 % mouthwash 15 ml PO BID Patient Comments: swish and spit 15 mL BID after oral care GlucaGen HypoKit 1 mg recon soln 1 mg IM DIRECTED PRN Patient Comments: Inject 1 mg IM as needed for BG less than 70 and patient is not arousable, conscious or able to swallow. Repeat BG in 15 minutes glucose gel 1 dose PO DIRECTED PRN Patient Comments: 77.4 % gel. Give one dose by mouth as needed for BG les than 70 if patient is arousable, conscious and able to swallow. Repeat BG in 15 min nystatin 100,000 unit/gram cream 1 applic topical TID Bio-K plus 50 billion cell capsule,delayed release(DR/EC) 1 cap PO DAILY Qty: 7 0RF Rx Instructions: Take 3 hours apart from antibiotics ipratropium-albuterol 0.5 mg-3 mg(2.5 mg base)/3 mL Solution For Nebulization 3 ml UPD QID Qty: 90 0RF famotidine [Acid Controller] 20 mg tablet 20 mg PO DAILY prednisone 5 mg tablet 5 mg PO DAILY Combivent Respimat 20-100 mcg/actuation mist 1 puff inhalation Q6H PRN PRN (Reason: bronchospasm) nitroglycerin 0.4 mg tablet, sublingual 0.4 mg sublingual Q5 MIN PRN X3 PRN Rx Instructions: do not exceed 3 doses per episode lidocaine [Aspercreme (lidocaine)] 4 % adhesive patch,medicated 1 patch topical DAILY PRN Super Thera Ada M Tablet 1 tab PO DAILY guaifenesin [Mucinex] 1,200 mg tablet extended release 12hr 1,200 mg PO BID Patient Comments: 600mg q 12hr furosemide [Lasix] 20 mg tablet 10 mg PO DAILY risperidone [Risperdal] 1 mg tablet 1 mg PO BID acetaminophen 500 mg tablet 1,000 mg PO BID oxycodone 10 mg tablet 10 mg PO Q6H sodium phosphates 19-7 gram/118 mL enema 118 ml [place] DAILY PRN Rx Instructions: 1 application rectally as needed if no results from Dulcolax suppository after 24 hours. Discontinued acetaminophen 325 mg capsule 975 mg PO .Q8 PRN clindamycin HCl [Cleocin HCl] 300 mg capsule 300 mg PO Q8H Rx Instructions: start 05/07/25. Take 1 capsule by mouth every 8 hours for 10 days for pneumonia. Discharge Instructions Instructions: Exacerbation of COPD (DC) Activity:: Activity as Tolerated Equipment/Supplies:: No Equipment Needed Diet:: As Tolerated DS: Summary Time Spent with Patient providing and/or coordinating discharge services: Less than 30 minutes Status at Discharge Functional status at discharge: uses cane/walker Overall status at discharge: patient is progressing back to baseline Mental Status: mental status grossly normal Speech and Movement: speech and movement normal Mood: congruent mood Affect: normal affect Quality:SDOH Health Related Social Needs: Health related social needs material hardship Health related social needs details n/a Exam Narrative Exam Narrative: General: This is an irritable man in no distress HEENT: Normocephalic, atraumatic CV: Irregular rate and irregular rhythm with loud systolic murmur Resp: CTAB Abd: soft, NTND. Buttock area concerning for HS and rash. MSK: voluntary motion x4 Neuro: awake, alert, no focal deficits Psych Mental Status: mental status grossly normal Speech and Movement: speech and movement normal Mood: congruent mood Affect: normal affect DS: Data Vitals/I&O Vitals and I&O: Vital Signs Temperature 36.9 C 05/17/25 07:49 Temperature Source Temporal Artery Scan 05/17/25 07:49 Pulse 88 05/17/25 08:36 Pulse Rhythm Irregular 05/16/25 00:30 Pulse 103 H 05/16/25 00:05 Respiratory Rate 25 H 05/17/25 08:36 Respiratory Effort Normal 05/16/25 00:30 Respiratory Depth Normal 05/15/25 22:21 Respiratory Pattern Normal 05/15/25 22:21 Blood Pressure 133/82 05/17/25 07:49 Blood Pressure Mean 99 05/17/25 07:49 Blood Pressure Position Sitting 05/15/25 21:11 Pulse Oximetry 93 05/17/25 08:36 Oxygen Delivery Method Room Air 05/17/25 08:36 Oxygen Flow Rate 0 05/17/25 08:36 Pain Level 0 05/17/25 07:49 Comment Pt expresses lower back pain. 11/27/25 22:40 Intake & Output 05/16/25 05/16/25 05/17/25 11:59 23:59 11:59 Intake Total 550 / 1250 700 / 1250 230 / 230 Output Total 125 / 125 Balance 425 / 1125 700 / 1125 230 / 230 Weight 84.2 kg 85.6 kg Intake: IV 200 / 420 220 / 420 230 / 230 Oral 350 / 830 480 / 830 Output: Urine 125 / 125 Other: Urine Color Yellow Yellow Yellow Urine Appearance Clear Urine Odor Strong Normal Comment pt is incontinent of urine. amada care,nystatin powder applied Pt was inc. of urine, [employer] changed brief. Data Completed and Pending Pending Labs at Discharge: 05/15/25 05/15/25 05/15/25 21:20 21:25 21:30 WBC 11.61 H RBC 3.11 L Hgb 7.8 L Hct 26.4 L MCV 85 MCH 25.1 L MCHC 29.5 L RDW 16.6 H Plt Count 274 MPV 9.7 Immature Gran % 0.6 Neutrophils % 82.7 Lymphocytes % 8.8 Monocytes % 6.9 Eosinophils % 0.7 Basophils % 0.3 Nucleated RBC % 0.0 Absolute Neutrophils 9.60 H Absolute Lymphocytes 1.02 L Absolute Monocytes 0.80 Absolute Eosinophils 0.08 Absolute Basophils 0.03 RBC Morphology See Below Hypochromasia 1+ VBG pH 7.43 H VBG pCO2 46 VBG pO2 72 VBG HCO3 30 H VBG Total CO2 28 VBG O2 Saturation 96 VBG Base Excess 6 H VBG Lactate 1.8 Sodium 135 L Potassium 3.6 Chloride 101 Carbon Dioxide 28.8 Anion Gap 5.2 BUN 20 Creatinine 0.72 L Est GFR (CKD-EPI 2020) 105.46 Glucose 184 H Calcium 8.6 Magnesium 1.7 Total Bilirubin 0.40 AST 14 ALT 8 L Alkaline Phosphatase 70 NT-Pro-B Natriuret Pep Total Protein 6.6 Albumin 3.1 L Procalcitonin < 0.10 Urine Color Urine Clarity Urine pH Ur Specific [place] Urine Protein Urine Ketones Urine Blood Urine Nitrite Urine Bilirubin Urine Urobilinogen Ur Leukocyte Esterase Urine Glucose Urine Opiates Screen Ur Oxycodone Screen Urine Methadone Screen Ur Barbiturates Screen Ur Tricyclics Screen Ur Amphetamines Screen U Benzodiazepines Scrn Urine Cocaine Screen U Cannabinoids Screen COVID-19 Source Nasopharynx SARS-CoV-2 (PCR) Negative Influenza Type A (PCR) Negative Influenza Type B (PCR) Negative RSV (PCR) Negative 05/16/25 05/16/25 05/16/25 01:27 02:15 06:15 WBC 10.42 RBC 3.21 L Hgb 8.0 L Hct 27.5 L MCV 86 MCH 24.9 L MCHC 29.1 L RDW 16.7 H Plt Count 182 MPV 11.4 H Immature Gran % Neutrophils % Lymphocytes % Monocytes % Eosinophils % Basophils % Nucleated RBC % Absolute Neutrophils Absolute Lymphocytes Absolute Monocytes Absolute Eosinophils Absolute Basophils RBC Morphology Hypochromasia VBG pH VBG pCO2 VBG pO2 VBG HCO3 VBG Total CO2 VBG O2 Saturation VBG Base Excess VBG Lactate Sodium 139 Potassium 4.0 Chloride 102 Carbon Dioxide 27.9 Anion Gap 9.1 BUN 17 Creatinine 0.67 L Est GFR (CKD-EPI 2020) 114.59 Glucose 208 H Calcium 8.5 Magnesium 1.7 Total Bilirubin 0.40 AST 14 ALT 8 L Alkaline Phosphatase 68 NT-Pro-B Natriuret Pep Cancelled 3486 H Total Protein 6.6 Albumin 3.0 L Procalcitonin Urine Color Yellow Urine Clarity Clear Urine pH 5.5 Ur Specific [place] 1.020 Urine Protein Trace Urine Ketones Negative Urine Blood Negative Urine Nitrite Negative Urine Bilirubin Negative Urine Urobilinogen 0.2 Ur Leukocyte Esterase Negative Urine Glucose Negative Urine Opiates Screen Positive A Ur Oxycodone Screen Pending Urine Methadone Screen Negative Ur Barbiturates Screen Negative Ur Tricyclics Screen Negative Ur Amphetamines Screen Negative U Benzodiazepines Scrn Negative Urine Cocaine Screen Negative U Cannabinoids Screen Negative COVID-19 Source SARS-CoV-2 (PCR) Influenza Type A (PCR) Influenza Type B (PCR) RSV (PCR) 05/17/25 09:45 WBC 7.59 RBC 3.41 L Hgb 8.3 L Hct 28.4 L MCV 83 MCH 24.3 L MCHC 29.2 L RDW 16.7 H Plt Count 291 D MPV 9.4 Immature Gran % Neutrophils % Lymphocytes % Monocytes % Eosinophils % Basophils % Nucleated RBC % Absolute Neutrophils Absolute Lymphocytes Absolute Monocytes Absolute Eosinophils Absolute Basophils RBC Morphology Hypochromasia VBG pH VBG pCO2 VBG pO2 VBG HCO3 VBG Total CO2 VBG O2 Saturation VBG Base Excess VBG Lactate Sodium 136 Potassium 3.7 Chloride 100 Carbon Dioxide 26.1 Anion Gap 10 BUN 20 Creatinine 0.72 L Est GFR (CKD-EPI 2020) 105.45 Glucose 152 H Calcium 8.8 Magnesium 1.8 Total Bilirubin 0.30 AST 19 ALT 11 Alkaline Phosphatase 67 NT-Pro-B Natriuret Pep Total Protein 6.7 Albumin 3.2 Procalcitonin Urine Color Urine Clarity Urine pH Ur Specific [place] Urine Protein Urine Ketones Urine Blood Urine Nitrite Urine Bilirubin Urine Urobilinogen Ur Leukocyte Esterase Urine Glucose Urine Opiates Screen Ur Oxycodone Screen Urine Methadone Screen Ur Barbiturates Screen Ur Tricyclics Screen Ur Amphetamines Screen U Benzodiazepines Scrn Urine Cocaine Screen U Cannabinoids Screen COVID-19 Source SARS-CoV-2 (PCR) Influenza Type A (PCR) Influenza Type B (PCR) RSV (PCR) Preliminary micro results at discharge 05/16/25 02:15 Urine - Clean Catch Urine Culture - Preliminary Gram positive santi, mixed 05/15/25 21:10 Blood Blood Culture - Preliminary NO GROWTH 24 HOURS 05/15/25 21:30 Blood Blood Culture - Preliminary NO GROWTH 24 HOURS PFSH All Active Problems (Updated 05/16/25 @ 01:30 by Alo Cortez) Hidradenitis suppurativa (Chronic) Abrasion of forehead (Acute) Rash (Acute) COPD exacerbation (Acute) Hypotension (Acute) Acute respiratory acidosis (Acute) Hypoxemia (Acute) HCAP (healthcare-associated pneumonia) (Acute) Compression fracture of T12 vertebra (Acute) Anemia (Chronic) COPD exacerbation (Acute) Decubitus ulcer of sacral area (Acute) Aspiration pneumonia (Chronic) Dementia with behavioral disturbance (Chronic) Aspiration pneumonia (Acute) Anemia (Chronic) CHF (congestive heart failure) (Chronic) Yeast infection of the skin (Acute) Acute respiratory failure with hypoxia and hypercarbia (Acute) Hemopneumothorax on left (Acute) Pain in joint, foot, left (Acute) Corns and callosities (Acute) Cellulitis (Acute) Venous (peripheral) insufficiency (Acute) PAD (peripheral artery disease) (Acute) Onychomycosis (Acute) Neuropathy (Acute) Atrial fibrillation (Chronic) Hearing loss (Acute) with subjective 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 Mononeuritis (Acute) Hyperlipidemia (Chronic) Essential (primary) hypertension (Chronic) BPH (benign prostatic hyperplasia) (Chronic) ADHD (Acute) ASCVD (arteriosclerotic cardiovascular disease) (Chronic) Long-term current use of opiate analgesic (Acute) Tobacco use disorder (Chronic) Venous stasis dermatitis (Acute) Peripheral edema (Acute) 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 Frequent falls (Acute) Medical History Viral meningitis Complete rotator cuff tear right Cervical spondylosis Bursitis 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 Exposure to [employer] [place] Social History Smoking/Tobacco Use Status: Current every day Tobacco Type: cigarettes Smoking packs per day: 1 Smoking cigarettes per day: 20.0 Years smoked: 50 Smoking pack- years: 50.00 Smoking risk assessment performed?: Yes Alcohol Intake: never Drug use: Never Substance use type: does not use Housing: jail Do you feel safe at home: Yes Do you feel safe in your relationship?: Yes Time Spent with Patient Time Spent with Patient: <45 minutes Time was spent: preparing to see the patient(eg.review tests), obtaining and/or reviewing separately otained hiistory, ordering medications,tests, procedures, referring, communicating with other health respiratory care faculty, indepentently interpreting results, counseling the patient and care coordination
--- NOTE | 2025-05-17 10:54 | NUR.NOTE ---
[facility] Awaiting rct ride set up for discharge. Nursing Note:
--- NOTE | 2025-05-17 17:58 | PDOC.CMDIS ---
Date of service: 05/17/25 Time of Service: 17:58 LACE Index Scoring Tool Questions: Length of Stay (in days): 2 Was the patient admitted via the E.D.?: Yes Comorbidities: Congestive Heart Failure, Chronic Pulmonary Disease and Dementia E.D. Visits: 7 Answers: Total Score: 14 Risk of Readmission: High Risk Care Management Discharge Plan Reason for Hospitalization: COPD Discharge Plan: Bijan will be discharged back to [facility]. He will follow up with the facility provider and plan of care and transport via [facility] W/C van coordinated by CM. Patient/Family Education Needs: Review discharge instructions, discuss Ask Me Three Services Needed at Discharge: Long-Term Facility SDOH Health Related Social Needs: Health related social needs material hardship Health related social needs details n/a
[2025-05-18 16:33] LABS: Oxycodone Screen, U Presumptive Positive ng/mL (Cutoff: 100)
[2025-05-21 05:32] LABS: Noroxycodone-by LC-MS/MS 7399 ng/mL (Cutoff: 25); Noroxymorphone-by LC-MS/MS 1019 ng/mL (Cutoff: 25); Oxycodone Interpretation Positive.; Oxycodone-by LC-MS/MS 5117 ng/mL (Cutoff: 25); Oxymorphone-by LC-MS/MS 1942 ng/mL (Cutoff: 25)
== END 2025-05-17 12:58 | disposition skilled nursing facility (03) | DRG 190 ==
LOC: ER 23:49 → MS 05-16 00:28
PROVIDERS: Admitting Provider Family Medicine; Emergency Provider Emergency Medicine; PCP Internal Medicine; Responsible Provider Family Medicine; Visit Provider Family Medicine
DX: J44.0 Chronic obstructive pulmonary disease with (acute) lower respiratory infection (principal); J44.1 Chronic obstructive pulmonary disease with (acute) exacerbation; Z66 Do not resuscitate; I11.0 Hypertensive heart disease with heart failure; Z79.891 Long term (current) use of opiate analgesic; R29.6 Repeated falls; D64.9 Anemia, unspecified; I73.9 Peripheral vascular disease, unspecified; E78.5 Hyperlipidemia, unspecified; F17.210 Nicotine dependence, cigarettes, uncomplicated; I87.8 Other specified disorders of veins; G83.14 Monoplegia of lower limb affecting left nondominant side; R60.0 Localized edema; G62.9 Polyneuropathy, unspecified; B35.1 Tinea unguium; J69.0 Pneumonitis due to inhalation of food and vomit; I50.9 Heart failure, unspecified; F03.918 Unspecified dementia, unspecified severity, with other behavioral disturbance; I25.10 Atherosclerotic heart disease of native coronary artery without angina pectoris; M54.50 Low back pain, unspecified; G89.29 Other chronic pain; L73.2 Hidradenitis suppurativa; I48.20 Chronic atrial fibrillation, unspecified
CPT/HCPCS: 00123; 36415; 80053; 80307; 80365; 82805; 84145; 85027; 87040; 87637; 93005; 94640; 94761; 96365; 96375; 99285; 71045; 81003; 83605; 83735; 83880; 85025; 87086; 93010; 94667; 94668; 94760; 99223; 99232; 99238; J1815; J2543; J2919; J3490; J7620